=== PATIENT | male | born 1945 | race Caucasian/White ===

== ENCOUNTER 2019-12-22 17:40 | Emergency (ER) | payer MEDICARE, SELFPAY ==
--- NOTE | 2019-12-22 20:09 | PC.NURSE ---
PT CALLED AT 1930 AND 1999. PT NOT IN [facility]. [facility].
== END 2019-12-22 19:55 | disposition left against medical advice (07) ==
PROVIDERS: Emergency Provider Internal Medicine; PCP Internal Medicine
DX: H57.13 Ocular pain, bilateral (principal)
CPT/HCPCS: 99281

== ENCOUNTER 2020-01-09 12:13 | Outpatient (REF) | payer MEDICARE, SELFPAY | END 2020-01-09 12:14 | disposition home or self-care (01) | LOC: HO.XRAY 12:13 | PROVIDERS: PCP Internal Medicine; Visit Provider Internal Medicine | DX: M25.559 Pain in unspecified hip (principal) | CPT/HCPCS: 73502 ==

== ENCOUNTER 2020-01-30 07:42 | Outpatient (REF) | payer MEDICARE, SELFPAY ==
--- NOTE | 2020-01-30 08:03 | ECG_ITS ---
Test Reason : PREOP Blood Pressure : / mmHG Vent. Rate : 077 BPM Atrial Rate : 077 BPM P-R Int : 160 ms QRS Dur : 088 ms QT Int : 392 ms P-R-T Axes : 053 027 050 degrees QTc Int : 443 ms Normal sinus rhythm with sinus arrhythmia Normal ECG No previous ECGs available Referred By: Raji Amanda Electronically Signed By:ELISA VIZCARRA MD
[2020-01-30 08:15] LABS: MANUAL DIFF FLAG NO
[2020-01-30 08:16] LABS: Basophils Absolute Auto 0.1 X10*3/uL (0.0-0.2); Basophils Percent Auto 0.9 % (0-2); Eosinophils Absolute Auto 0.2 X10*3/uL (0.0-0.4); Hematocrit 46.3 % (42-52); Hemoglobin 14.9 g/dl (14.0-18.0); Imm Gran Abs Auto 0.01 X10*3/uL (0.00-0.03); Imm Gran Pct Auto 0.2 % (0.0-0.4); Lymphocytes Absolute Auto 1.8 X10*3/uL (1.2-4.9); Mean Corpuscular HGB Conc 32.2 g/dl (31.0-36.0); Mean Corpuscular Hemoglobin 27.7 pg (27.0-33.0); Mean Corpuscular Volume 86.1 fL (80-98); Mean Platelet Volume 10.4 fL (9.4-12.4); Monocytes Absolute Auto 0.7 X10*3/uL (0.1-1.2); Monocytes Percent Auto 12.3 % (2-11); Neutrophils Absolute Auto 2.7 X10*3/uL (2.0-8.3); Neutrophils Percent Auto 49.6 % (45-73); Platelet Count 180 X10*3/uL (160-400); Red Blood Count 5.38 X10*6/uL (4.60-5.80); Red Cell Distribution Width 13.2 % (11.0-16.0); White Blood Count 5.5 X10*3/uL (4.8-10.8)
[2020-01-30 08:39] LABS: Anion Gap 13 (12-20); Blood Urea Nitrogen 18 mg/dL (9-16); Carbon Dioxide 26 mmol/L (22-29); Chloride 105 mmol/L (96-108); Estimated Glomerular Filt Rate > 60; Glucose Random 92 mg/dL (60-115); Potassium 4.5 mmol/l (3.3-5.1); Sodium 139 mmol/L (135-145)
== END 2020-01-30 07:43 | disposition home or self-care (01) ==
LOC: HO.LAB 07:42
PROVIDERS: PCP Internal Medicine; Visit Provider Internal Medicine
DX: Z00.00 Encounter for general adult medical examination without abnormal findings (principal); R51.9 Headache, unspecified
CPT/HCPCS: 36415; 80048; 85025; 93005

== ENCOUNTER → 2020-03-02 09:55 | Outpatient (BNVA) | payer MEDICARE, SELFPAY | PROVIDERS: PCP Internal Medicine; Visit Provider Psychiatry & Neurology Neurology | DX: Z13.89 Encounter for screening for other disorder (principal) | CPT/HCPCS: Q3014 ==

== ENCOUNTER → 2020-04-20 08:41 | Outpatient (BNVA) | payer MEDICARE, SELFPAY | PROVIDERS: PCP Internal Medicine; Visit Provider Psychiatry & Neurology Neurology | DX: Z76.89 Persons encountering health services in other specified circumstances (principal) | CPT/HCPCS: Q3014 ==

== ENCOUNTER → 2020-05-11 09:28 | Outpatient (BNVA) | payer MEDICARE, MEDICAID, SELFPAY | PROVIDERS: PCP Internal Medicine; Visit Provider Psychiatry & Neurology Neurology | DX: G47.33 Obstructive sleep apnea (adult) (pediatric) (principal); G47.31 Primary central sleep apnea; G47.61 Periodic limb movement disorder | CPT/HCPCS: 99212 ==

== ENCOUNTER → 2020-05-30 20:19 | Outpatient (REF) | payer MEDICARE, SELFPAY | LOC: HO.SL 20:19 | PROVIDERS: PCP Internal Medicine; Visit Provider Psychiatry & Neurology Neurology | DX: Z13.89 Encounter for screening for other disorder (principal) ==

== ENCOUNTER → 2020-06-01 09:18 | Outpatient (BNVA) | payer MEDICARE, SELFPAY | PROVIDERS: PCP Internal Medicine; Visit Provider Psychiatry & Neurology Neurology | DX: G47.61 Periodic limb movement disorder (principal); M25.559 Pain in unspecified hip; G47.33 Obstructive sleep apnea (adult) (pediatric); F41.9 Anxiety disorder, unspecified; Z99.89 Dependence on other enabling machines and devices | CPT/HCPCS: Q3014 ==

== ENCOUNTER → 2020-06-07 11:59 | Outpatient (BNVA) | payer MEDICARE, MEDICAID, SELFPAY | PROVIDERS: PCP Internal Medicine; Visit Provider Orthopaedic Surgery | DX: M16.12 Unilateral primary osteoarthritis, left hip (principal) | CPT/HCPCS: 99202 ==

== ENCOUNTER 2020-07-20 06:14 | Outpatient (REF) | payer MEDICARE, OTHER, SELFPAY ==
--- NOTE | ~2020-07-20 | FL_ITS ---
EXAMINATION: XR FLUOROSCOPY WITH IMAGES CLINICAL INFORMATION: Primary osteoarthritis. COMPARISON: None TECHNIQUE: Fluoroscopy performed by Joselyn Montes De Oca NP. Fluoroscopy time: 0.6 minutes DAP: 5.04 Gycm2 Images: 1 FINDINGS: AP view of the left hip reveals needle position superolateral to the femoral head with contrast opacifying the joint space. There are subchondral cystic changes and flattening of the superolateral femoral head consistent with osteoarthritic changes. No acute fracture seen. FL/FL guidance in treatment room IMPRESSION: Fluoroscopy was provided for Joselyn Montes De Oca NP for left hip injection.
== END 2020-07-20 06:15 | disposition home or self-care (01) ==
LOC: HO.RADIR 06:14
PROVIDERS: Visit Provider Anesthesiology
DX: M16.12 Unilateral primary osteoarthritis, left hip (principal)
CPT/HCPCS: 20610; J3300; Q9967

== ENCOUNTER → 2020-08-03 08:33 | Outpatient (BNVA) | payer MEDICARE, SELFPAY | PROVIDERS: PCP Internal Medicine; Visit Provider Psychiatry & Neurology Neurology | DX: Z13.89 Encounter for screening for other disorder (principal) | CPT/HCPCS: Q3014 ==

== ENCOUNTER → 2020-08-23 13:37 | Outpatient (BNVA) | payer MEDICARE, MEDICAID, SELFPAY | PROVIDERS: PCP Internal Medicine; Visit Provider Anesthesiology | DX: M16.12 Unilateral primary osteoarthritis, left hip (principal) | CPT/HCPCS: 99202 ==

== ENCOUNTER → 2020-09-07 12:28 | Outpatient (REF) | payer MEDICARE, MEDICAID, SELFPAY | LOC: HO.SL 12:28 | PROVIDERS: PCP Internal Medicine; Visit Provider Psychiatry & Neurology Neurology | DX: G47.33 Obstructive sleep apnea (adult) (pediatric) (principal); Z99.89 Dependence on other enabling machines and devices | CPT/HCPCS: 99211 ==

== ENCOUNTER → 2020-11-16 15:05 | Outpatient (BNVA) | payer MEDICARE, MEDICAID, SELFPAY | PROVIDERS: PCP Internal Medicine; Visit Provider Urology | DX: N40.1 Benign prostatic hyperplasia with lower urinary tract symptoms (principal); R35.1 Nocturia; N52.9 Male erectile dysfunction, unspecified | CPT/HCPCS: 99202 ==

== ENCOUNTER 2020-11-26 09:15 | Outpatient (REF) | payer MEDICARE, MEDICAID, SELFPAY ==
--- NOTE | ~2020-11-26 | XR_ITS ---
EXAMINATION: XR SHOULDER, RIGHT CLINICAL INFORMATION: Pain. COMPARISON: None. TECHNIQUE: AP internal rotation, AP external rotation, and axillary views of the right shoulder. FINDINGS: Small acromioclavicular and glenohumeral marginal osteophytes. No osseous erosion. No fracture or dislocation. Lateral subacromial spurring. XR/XR shoulder RT min 2V IMPRESSION: Mild acromioclavicular and glenohumeral osteoarthritis. Lateral subacromial spurring.
== END 2020-11-26 09:16 | disposition home or self-care (01) ==
LOC: HO.HOSX 09:15
PROVIDERS: Visit Provider Orthopaedic Surgery
DX: M25.511 Pain in right shoulder (principal); Z96.642 Presence of left artificial hip joint
CPT/HCPCS: 73030; 99212

== ENCOUNTER → 2020-11-29 09:45 | Outpatient (BNVA) | payer MEDICARE, SELFPAY | PROVIDERS: PCP Internal Medicine; Visit Provider Orthopaedic Surgery | DX: Z01.812 Encounter for preprocedural laboratory examination (principal); Z01.810 Encounter for preprocedural cardiovascular examination ==

== ENCOUNTER 2020-11-29 13:03 | Outpatient (REF) | payer MEDICARE, MEDICAID, SELFPAY ==
[2020-11-29 13:17] LABS: MANUAL DIFF FLAG NO
[2020-11-29 13:30] LABS: Basophils Percent Auto 0.3 % (0-2); Eosinophils Percent Auto 0.9 % (0-4); Hematocrit 39.1 % (42-52); Hemoglobin 13.3 g/dl (14.0-18.0); Imm Gran Abs Auto 0.01 X10*3/uL (0.00-0.03); Imm Gran Pct Auto 0.3 % (0.0-0.4); Lymphocytes Absolute Auto 1.4 X10*3/uL (1.2-4.9); Lymphocytes Percent Auto 40.7 % (20-40); Mean Corpuscular Hemoglobin 32.7 pg (27.0-33.0); Mean Corpuscular Volume 96.1 fL (80-98); Mean Platelet Volume 11.3 fL (9.4-12.4); Monocytes Absolute Auto 0.7 X10*3/uL (0.1-1.2); Monocytes Percent Auto 18.5 % (2-11); Neutrophils Absolute Auto 1.4 X10*3/uL (2.0-8.3); Neutrophils Percent Auto 39.3 % (45-73); Platelet Count 92 X10*3/uL (160-400); Red Blood Count 4.07 X10*6/uL (4.60-5.80); Red Cell Distribution Width 13.7 % (11.0-16.0); White Blood Count 3.5 X10*3/uL (4.8-10.8)
[2020-11-29 13:58] LABS: Anion Gap 9 (12-20); Blood Urea Nitrogen 16 mg/dL (9-16); Calcium 8.9 mg/dL (8.4-10.2); Carbon Dioxide 28 mmol/L (22-29); Chloride 109 mmol/L (96-108); Estimated Glomerular Filt Rate > 60; Glucose Random 93 mg/dL (60-115); Potassium 3.9 mmol/L (3.3-5.1); Sodium 142 mmol/L (135-145)
== END 2020-11-29 13:04 | disposition home or self-care (01) ==
LOC: HO.LAB 13:03
PROVIDERS: Visit Provider Orthopaedic Surgery
DX: Z01.818 Encounter for other preprocedural examination (principal); M19.90 Unspecified osteoarthritis, unspecified site
CPT/HCPCS: 36415; 80048; 85025

== ENCOUNTER 2020-12-09 | Outpatient (REF) | payer MEDICARE, SELFPAY ==
--- NOTE | 2020-11-29 12:55 | ECG_ITS ---
Test Reason : preop Blood Pressure : / mmHG Vent. Rate : 069 BPM Atrial Rate : 069 BPM P-R Int : 154 ms QRS Dur : 090 ms QT Int : 382 ms P-R-T Axes : 028 028 037 degrees QTc Int : 409 ms Sinus rhythm with marked sinus arrhythmia Otherwise normal ECG When compared with ECG of 30-JAN-2020 08:10, No significant change was found Referred By: Dennis Small Electronically Signed By:ADAM PERERA
[2020-12-09 14:01] VITALS: BP 113/58; PULSE 72; RESP 20; O2SAT 97; BMI 31.7
--- NOTE | 2020-12-09 14:18 | P.CONAN_ITS ---
HPI - Anesthesia Eval Consult details Narrative: 74yo M for Left Hip Total Replacement Low PLT count with Preop labs, Repeated at PAT. Pancytopenia noted. T/C to PCP to address. Consult to Heme. Surgery cx'd until heme w/u completed. [facility] Active Problems Active Problems: All Active Problems (Updated 12/09/20 @ 13:59 by Lillian Santos RN) Obstructive sleep apnea (Acute) Central sleep apnea (Acute) Preop exam for internal medicine (Acute) Periodic limb movement disorder (Acute) Encounter for annual wellness exam in Medicare patient (Acute) Erectile dysfunction (Acute) BPH loc w urin obs/LUTS (Acute) Nocturia more than twice per night (Acute) Shoulder pain (Acute) Obesity (Acute) Arthritis of left hip (Acute) Anxiety (Acute) Hip pain (Acute) Past Medical History Medical History (Updated 12/22/20 @ 13:43 by Raji Amanda MD) Anxiety Arthritis of left hip BPH (benign prostatic hyperplasia) COVID-19 vaccine series completed Hepatitis B Hip pain Obesity Sleep apnea Family History Family History Father No problems noted. Mother No problems noted. Daughter No problems noted. Family history of problems with anesthesia: No Surgical History Surgical History H/O colonoscopy History of appendectomy History of back surgery History of tonsillectomy History of Problems with Anesthesia: No Social History Social History Housing: House Are you a primary pediatric acute care unit nurse to a significant other at home: No Do you presently have visiting nurse or other home services: No Alcohol intake: current Alcohol intake frequency: a few times a month Alcohol type: hard liquor Patient Tobacco Use Status: Never used Tobacco e-Cigarette/Vaping Use: Never Used Second Hand Smoke Exposure: No service: No 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al status: retired 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 Meds Allergies Allergy/AdvReac Type Severity Reaction Status Date / Time No Known Allergies Allergy Verified 12/22/20 13:26 Exam Exam Date and Time: December 09, 2020 1418 Height,Weight and Vital Signs: Height 6 ft Weight 106.141 kg Last Vital Signs Pulse 72 12/09/20 14:01 Resp 20 12/09/20 14:01 BP 113/58 L 12/09/20 14:01 Pulse Ox 97 12/09/20 14:01 Pertinent Lab Results Pertinent Lab Results: Laboratory Tests 11/29/20 12/15/20 13:16 11:25 WBC 3.0 L Hgb 12.4 L Hct 36.4 L Plt Count 84 L Sodium 142 Potassium 3.9 Chloride 109 H Carbon Dioxide 28 BUN 16 Creatinine 0.78 Narrative Narrative: EKG Vent. Rate : 069 BPM ? ? Atrial Rate : 069 BPM ?? P-R Int : 154 ms? QRS Dur : 090 ms ? ? QT Int : 382 ms ? ? ? P-R-T Axes : 028 028 037 degrees ?? QTc Int : 409 ms ? Sinus rhythm with marked sinus arrhythmia Otherwise normal ECG When compared with ECG of 30-JAN-2020 08:10, No significant change was found Airway Mallampati Class: II TM Dist: >3cm Neck ROM: Full Heart: RRR Lungs: CTAB Assessment and Plan Assessment Anesthesia Assessment: Anesthesia Plan Discussed (GA and ? Nerve block) and PAT Visit Final Anesthetic Review Family History of Problems with Anesthesia: No History of Problems with Anesthesia: No
[2020-12-09 15:24] LABS: Hematocrit 37.2 % (42-52); Hemoglobin 12.4 g/dl (14.0-18.0); Mean Corpuscular HGB Conc 33.3 g/dl (31.0-36.0); PLT CLUMP 1
[2020-12-09 15:25] LABS: Mean Corpuscular Hemoglobin 31.7 pg (27.0-33.0); Mean Corpuscular Volume 95.1 fL (80-98); Mean Platelet Volume 11.3 fL (9.4-12.4); Red Blood Count 3.91 X10*6/uL (4.60-5.80); Red Cell Distribution Width 13.9 % (11.0-16.0); White Blood Count 3.6 X10*3/uL (4.8-10.8)
[2020-12-09 15:27] LABS: Platelet Count 87 X10*3/uL (160-400)
[2020-12-09 16:15] LABS: MRSA Nasal PCR NEGATIVE (Negative); SA Nasal PCR NEGATIVE (Negative)
== END 2020-12-09 00:01 | disposition home or self-care (01) ==
LOC: HO.LAB
PROVIDERS: Nurse Practitioner; Physician Assistant; PCP Internal Medicine; Visit Provider Orthopaedic Surgery
DX: Z01.810 Encounter for preprocedural cardiovascular examination (principal); M16.12 Unilateral primary osteoarthritis, left hip
CPT/HCPCS: 36415; 85027; 86850; 86900; 86901; 87640; 87641; 93005

== ENCOUNTER 2020-12-09 12:42 | Outpatient (REF) | payer MEDICARE, MEDICAID, SELFPAY ==
--- NOTE | ~2020-12-09 | XR_ITS ---
EXAMINATION: XR PELVIS CLINICAL INFORMATION: Pain COMPARISON: December 2019 TECHNIQUE: AP pelvis single view FINDINGS: Complete loss of the joint space on the left side along with subarticular radiolucencies and flattening of the femoral head suggests aggressive left hip arthritis which could be inflammatory, or infection, this has progressed since prior exam worsened. Mild degenerative changes of the right hip. Mild DJD of SI joints and symphysis pubis. XR/XR pelvis 1-2V IMPRESSION: Rapid progression of severe arthritis of the left hip raise concern for possible aggressive arthritis which could be infection or inflammatory. Clinical correlation recommended. Consider left hip aspiration if clinically indicated. Stable mild DJD right hip.
== END 2020-12-09 12:43 | disposition home or self-care (01) ==
LOC: HO.HOSX 12:42
PROVIDERS: Visit Provider Physician Assistant
DX: M16.12 Unilateral primary osteoarthritis, left hip (principal)
CPT/HCPCS: 72170; 99212

== ENCOUNTER → 2020-12-15 10:39 | Outpatient (BNV) | payer MEDICARE, MEDICAID, SELFPAY | PROVIDERS: PCP Internal Medicine; Referring Provider Internal Medicine; Visit Provider Internal Medicine | DX: D69.6 Thrombocytopenia, unspecified (principal) | CPT/HCPCS: 99203; 99213; 99214 ==

== ENCOUNTER 2020-12-29 09:28 | Outpatient (REF) | payer MEDICARE, MEDICAID, SELFPAY ==
--- NOTE | ~2020-12-29 | CT_ITS ---
EXAMINATION: CT ABDOMEN AND PELVIS WITHOUT AND WITH CONTRAST CLINICAL INFORMATION: Pancytopenia COMPARISON: None TECHNIQUE: Multidetector volumetric imaging was performed of the abdomen and pelvis before and after the IV administration of 85 mL of Omnipaque 350 intravenous contrast. Sagittal and coronal reformatted images were obtained on the technologist's workstation. This CT examination was performed using dose optimization techniques as appropriate, variously including the following: *Automated exposure control *Adjustment of mA and/or kV according to patient size (this includes techniques or standardized protocols for targeted exams where dose is matched to indication/reason for exam; i.e. extremities or head) *Use of iterative reconstruction technique DLP: 1371 mGy-cm FINDINGS: LUNG BASES: The visualized lung bases are unremarkable. LIVER, GALLBLADDER, AND BILIARY TREE: There are 2 cysts in the liver measuring 1 cm in the lateral segment the left lobe axial image 34 series 4 and measuring 1 x 1.5 cm in the posterior segment of the right lobe axial image 45 series 4. There is a third 5 mm peripheral low-attenuation lesion in the right lobe axial image 33 series 4. This is difficult to characterize due to small size. The left lobe of the liver and caudate lobe appear prominent questionable for mild cirrhotic change. There is a gallstone in the gallbladder. There is no biliary duct dilatation. PANCREAS: Unremarkable SPLEEN: The spleen is slightly enlarged measuring 14.3 cm in length. There is a 2 cm cyst in the inferior spleen. ADRENAL GLANDS: Unremarkable KIDNEYS AND URETERS: There are bilateral renal stones. There is a 1 x 1.3 cm stone in the lower pole of the right kidney. Hounsfield units measure 1400. This is 9 cm from the mid axillary line. There are smaller clustered millimeter in size stone in the lower pole of the right kidney. There were several small left renal stones, largest measuring 2 mm in the lower pole. There is mild left hydronephrosis from a 2 x 4 mm left proximal ureteral stone. BLADDER: Not optimally distended. GASTROINTESTINAL TRACT: There is diverticulosis of the colon. Small large bowel is otherwise unremarkable. The appendix is is not identified with certainty. The stomach is unremarkable. ABDOMINAL WALL: There are small umbilical and inguinal hernias containing fat. LYMPH NODES: There are small retroperitoneal lymph nodes. No enlarged lymph nodes are seen. VASCULAR: There is evidence of atherosclerotic disease. No aneurysm is seen. PELVIC VISCERA: Unremarkable OSSEOUS STRUCTURES: There is a severe arthritis of the left hip joint. There are degenerative changes of the spine. There is CT/CT abdomen pelvis wo/w con IMPRESSION: Question mild cirrhotic changes of the liver. Mild splenomegaly. Gallstone. Liver and splenic cysts. Bilateral renal stones. Mild left hydronephrosis from a 2 x 4 mm left proximal ureteral stone. Diverticulosis of the colon.
[2020-12-29] MEDS: iohexoL 350 MG/ML 100 ML INFUS..BTL IV (11:10)
== END 2020-12-29 09:29 | disposition home or self-care (01) ==
LOC: HO.CT 09:28
PROVIDERS: Visit Provider Internal Medicine
DX: D61.818 Other pancytopenia (principal); R74.8 Abnormal levels of other serum enzymes
CPT/HCPCS: 74178; Q9967

== ENCOUNTER 2020-12-31 13:53 | Outpatient (REF) | payer MEDICARE, SELFPAY ==
--- NOTE | ~2020-12-31 | US_ITS ---
EXAMINATION: US VENOUS ULTRASOUND WITH DOPPLER LOWER EXTREMITY, LEFT CLINICAL INFORMATION: Ankle swelling COMPARISON: None TECHNIQUE: Ultrasound of the deep veins is performed from the hip to the calf with compression sonography and color and pulse Doppler assessment. Spectral analysis with color-flow imaging is performed. FINDINGS: There is normal venous compression and respiratory variation and augmented flow. The visualized common femoral vein, superficial femoral vein, profunda femoral vein, popliteal vein, and the trifurcation region shows no evidence of deep venous thrombosis. There is no significant popliteal fossa cyst. If the patient's symptoms persist, followup ultrasound in 5 days 7 days might be of value to exclude proximal propagation from a non-visualized calf vein. US/US venous duplex LE LT IMPRESSION: No DVT demonstrated in the left lower extremity.
== END 2020-12-31 13:54 | disposition home or self-care (01) ==
LOC: HO.US 13:53
PROVIDERS: Visit Provider Internal Medicine
DX: D69.6 Thrombocytopenia, unspecified (principal); M25.472 Effusion, left ankle
CPT/HCPCS: 93971

== ENCOUNTER 2021-01-02 12:12 | Emergency (ER) | payer MEDICARE, SELFPAY ==
--- NOTE | ~2021-01-02 | CT_ITS ---
EXAMINATION: CT ABDOMEN AND PELVIS WITHOUT CONTRAST CLINICAL INFORMATION: Left flank pain. History of stones. COMPARISON: CT scan abdomen pelvis December 29, 2020 TECHNIQUE: Multidetector volumetric imaging was performed from the superior aspect of the liver through the pubic symphysis. Sagittal and coronal reformatted images were obtained on the technologist's workstation. This CT examination was performed using dose optimization techniques as appropriate, variously including the following: *Automated exposure control *Adjustment of mA and/or kV according to patient size (this includes techniques or standardized protocols for targeted exams where dose is matched to indication/reason for exam; i.e. extremities or head) *Use of iterative reconstruction technique DLP: 775 mGy-cm FINDINGS: LUNG BASES: The visualized lung bases are unremarkable. LIVER, GALLBLADDER, AND BILIARY TREE: Stable small hepatic cysts. No suspicious liver lesion. Density calcified gallstone layering dependently in the gallbladder measuring 1.5 cm in diameter. No edema around the gallbladder. No bile duct dilatation. The extra hepatic CBD at the jorge hepatis measures 7 mm. PANCREAS: Unremarkable. SPLEEN: Hypodense area at the lower pole of the spleen measuring 2.5 cm transverse. Density measurement 10 Hounsfield units consistent with cysts. No change since prior study of December 29, 2020. Spleen is mildly enlarged measuring 14 cm of length. ADRENAL GLANDS: Unremarkable. KIDNEYS AND URETERS: Right kidney: There is a large stone in lower pole the right kidney measuring 1.5 cm. Density measurement 1281 Hounsfield units. This stone lies 11 cm from the posterior skin line. There are couple of tinier stones at the lower pole as well. There is no hydronephrosis. There are no ureteral stones. Left kidney: There is moderate hydronephrosis of left kidney. There is an obstructing stone in the proximal left ureter just distal to the ureteropelvic junction measuring 7 x 5 mm. Coronal image 48/90. This stone has not changed in position since prior study December 29, 2020 the severity of the hydronephrosis is mildly worse since prior study. There is no additional stone in the left ureter. In the lower pole left kidney there is a nonobstructive 3 mm stone. There are couple of tiny stones in the upper pole of left kidney as well. BLADDER: Unremarkable. GASTROINTESTINAL TRACT: There are numerous diverticula of the entire colon but most numerous at the sigmoid colon. There is no diverticulitis. There is no bowel wall thickening /edema. There is no bowel obstruction. There is a moderate volume of stool in the colon. The appendix is nonvisualized . The small bowel loops are unremarkable. The stomach is normal. There is no hiatal hernia. ABDOMINAL WALL: Small bilateral fat-containing inguinal hernias. Small fat-containing umbilical hernia. LYMPH NODES: Normal. VASCULAR: Atherosclerotic vascular calcifications throughout the abdomen and the pelvis. There is no aneurysm. PELVIC VISCERA: Unremarkable. OSSEOUS STRUCTURES: Multilevel degenerative spondylosis of the spine. CT/CT abdomen pelvis wo con IMPRESSION: 1. Moderate hydronephrosis of left kidney due to an obstructing 7 x 5 mm stone in the proximal left ureter. 2. Bilateral nonobstructive renal stones. 3. Diverticulosis of the colon. No acute abnormality of the bowel. 4. Splenomegaly. Splenic cyst lower pole of the spleen. 5. Stable hepatic cysts.
--- NOTE | 2021-01-02 12:29 | ED.ABDPAIN ---
HPI - Abdominal Pain General Chief Complaint: Urogenital-Male Stated Complaint: flank pain Time Seen by Provider: 01/02/21 12:29 Source: patient Mode of arrival: ambulatory Limitations: no limitations History of Present Illness HPI narrative: left flank pain starting last night. This morning with increased pain and N/V. patient has not had a kidney stone in a few years. Feels like it is going to the groin. Patient has not had any hematuria. MD elicited complaint: flank pain Pertinent past history: kidney stones Onset (ago): day(s) Pain Consistency: intermittent Location: L flank Severity: moderate Quality: sharp Exacerbating factors: nothing Relieving factors: nothing Associated symptoms: nausea and vomiting Related Data Previous Rx's Medication Instructions Recorded tadalafil 5 mg tablet 5 mg PO DAILY PRN 90 Days #90 tab 11/16/20 tamsulosin 0.4 mg capsule 0.4 mg PO BEDTIME 90 Days #90 cap 11/16/20 naproxen 500 mg tablet (Naprosyn) 500 mg PO BID #20 tab 01/02/21 ondansetron HCl 4 mg tablet 4 mg PO Q8H PRN #10 tab 01/02/21 (Zofran) Allergies Allergy/AdvReac Type Severity Reaction Status Date / Time No Known Allergies Allergy Verified 12/31/20 13:23 Review of Systems Constitutional: Reports no additional constitutional complaints Eyes: Reports no additional eye complaints Denies dizziness Cardiovascular: Reports no additional cardiovascular complaints Respiratory: Reports as per HPI Gastrointestinal: Reports no additional gastrointestinal complaints Musculoskeletal: Reports no additional musculoskeletal complaints Skin/Breast: Denies rash Reports system reviewed and no additional complaints, except as documented, Denies dizziness and Denies Sensory deficit (Neuro) Psychiatric: Denies anxiety Physical Exam Vital Signs: Vital Signs: Last Vital Signs Temp 98 F 01/02/21 12:31 Pulse 82 01/02/21 15:40 Resp 18 01/02/21 15:40 BP 128/59 L 01/02/21 15:40 Pulse Ox 98 01/02/21 15:40 Body Mass Index 31.7 Const: General: healthy appearing Nutritional Appearance: average body habitus Orientation/consciousness: oriented to person and patient oriented x3 Limitations: no limitations HENMT: Head: Yes normal to inspection Ears: external ears normal General nose exam: Normal external nose present Mouth: Normal oral and palatal mucosa present and oropharynx normal Throat: Yes posterior oropharynx normal Eyes: General: appearance normal, both eyes and all related structures Neck: Other: supple Neck: Yes normal visual inspection Chest: Chest palpation & inspection: normal inspection of the chest Resp: Auscultation: clear to auscultation bilaterally Cardio: Jugular venous distension: no JVD Rate: regular rate Rhythm: regular rhythm Heart sounds: S1 normal heart sound present and S2 normal heart sound present GI: Inspection: Yes normal to inspection Palpation (GI): Soft to palpation, nontender and No hepatosplenomegaly present Auscultation: normal bowel sounds Back/Spine/Pelvis: Other: mild CVAT Skin: General skin exam: no rashes or lesions noted Neuro: General: oriented to person and patient oriented x3 Cranial nerves: Yes CN's II-XII intact bilaterally Motor exam (neuro): 5/5 motor strength present throughout Sensory Exam: No Sensory deficit (Neuro) Extrem: General: Yes normal to inspection Psych: Appearance: grossly normal Course Reevaluation(s) Reevaluation #1: patient with [id number] proximal left stone, UA not infected. will dc home with follow up with Dr. Soliz. Time: 16:09 [facility] - Abdominal Pain Lab Data Result diagrams: 01/02/21 12:39 01/02/21 12:39 Labs: Lab Results 01/02/21 01/02/21 01/02/21 Range/Units 12:39 12:39 15:38 WBC 4.8 (4.8-10.8) X10*3/uL RBC 4.16 L (4.60-5.80) X10*6/uL Hgb 13.5 L (14.0-18.0) g/dl Hct 40.0 L (42.0-52.0) % MCV 96.2 (80.0-98.0) fL MCH 32.5 (27.0-33.0) pg MCHC 33.8 (31.0-36.0) g/dl RDW 14.5 (11.0-16.0) % Plt Count 96 L (160-400) X10*3/uL MPV 10.8 (9.4-12.4) fL Immature Gran % (Auto) 0.2 (0.0-0.4) % Neut % (Auto) 64.7 (45-73) % Lymph % (Auto) 21.7 (20-40) % [place] % (Auto) 11.9 H (2-11) % Eos % (Auto) 1.3 (0-4) % Baso % (Auto) 0.2 (0-2) % Lymph # (Auto) 1.0 L (1.2-4.9) X10*3/uL [place] # (Auto) 0.6 (0.1-1.2) X10*3/uL Eos # (Auto) 0.1 (0.0-0.4) X10*3/uL Baso # (Auto) 0.0 (0.0-0.2) X10*3/uL Abs Immat Gran (auto) 0.01 (0.00-0.03) X10*3/uL Absolute Neuts (auto) 3.1 (2.0-8.3) x10*3/uL Absolute Nucleated RBC 0.000 (0.0-0.012) X10*3/uL Nucleated RBC % (auto) 0.0 (0.0-0.2) /100WBC Sodium 140 (135-145) mmol/L Potassium 4.2 (3.3-5.1) mmol/L Chloride 107 (96-108) mmol/L Carbon Dioxide 26 (22-29) mmol/L Anion Gap 11 L (12-20) BUN 19 H (9-16) mg/dL Creatinine 1.17 (0.5-1.4) mg/dL Estim Creat Clear Calc 67.6 Estimated GFR > 60 Random Glucose 109 (60-115) mg/dL Calcium 9.9 D (8.4-10.2) mg/dL Urine Color YELLOW Urine Appearance CLEAR Urine pH 5.5 (5.0-8.0) Ur Specific [place] >= 1.030 H (1.005-1.025) Urine Protein NEG (NEG-TRACE) MG/DL Urine Glucose (UA) NEG (NEG) MG/DL Urine Ketones NEG (NEG) MG/DL Urine Blood 3+ H (NEG) Urine Nitrite NEG (NEG) Ur Leukocyte Esterase NEG (NEG) Urine RBC 15-29 H (0) /HPF Urine WBC 1-4 (0-4) /HPF Ur Squamous Epith Cells TRACE /LPF Urine Bacteria NONE /LPF Urine Mucus 1+ /LPF Imaging Data CT scan - abdomen: Radiologist's impression: IMPRESSION: ? 1. Moderate hydronephrosis of left kidney due to an obstructing 7 x 5 mm stone in the proximal left ureter. 2. Bilateral nonobstructive renal stones. 3. Diverticulosis of the colon. No acute abnormality of the bowel. 4. Splenomegaly. Splenic cyst lower pole of the spleen. 5. Stable hepatic cysts. Discharge Plan Discharge Clinical Impression: Renal colic on left side Patient Disposition: Home, Self-Care Instructions: Renal Colic (ED) Prescriptions: New ondansetron HCl [Zofran] 4 mg tablet 4 mg PO Q8H PRN (Reason: nausea and vomiting) Qty: 10 RF: 0 naproxen [Naprosyn] 500 mg tablet 500 mg PO BID Qty: 20 RF: 0 No Action tamsulosin 0.4 mg capsule 0.4 mg PO BEDTIME 90 Days Qty: 90 RF: 1 tadalafil 5 mg tablet 5 mg PO DAILY PRN (Reason: sexual activity) 90 Days Qty: 90 RF: 0 Referrals: Siddhartha Soliz MD [Physician] - 5 days [facility] Past Medical History Medical History Anxiety Arthritis of left hip BPH (benign prostatic hyperplasia) COVID-19 vaccine series completed Hepatitis B Hip pain Obesity Sleep apnea Surgical History H/O colonoscopy History of appendectomy History of back surgery History of tonsillectomy Family History Family History Father No problems noted. Mother No problems noted. Daughter No problems noted. Social History Social History Housing: House Are you a primary home health care social worker to a significant other at home: No Do you presently have visiting nurse or other home services: No Alcohol intake: current Alcohol intake frequency: a few times a month Alcohol type: hard liquor Patient Tobacco Use Status: Never used Tobacco e-Cigarette/Vaping Use: Never Used Second Hand Smoke Exposure: No Use of substances other than those prescribed or required for medical reasons: No Advance Directives: No Advance Directives Information Provided: Yes service: No 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al status: retired 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
[2021-01-02 12:31] VITALS: BP 160/72; PULSE 99; RESP 18; TEMP 36.6; O2SAT 99; BMI 31.7
[2021-01-02] MEDS: 0.9 % Sodium Chloride 1,000 ML 250 ML IVCONT (12:41)
[2021-01-02] MEDS: Ketorolac Tromethamine 15 MG/ML VIAL 30 MG IVPUSH (12:44)
[2021-01-02 12:45] LABS: MANUAL DIFF FLAG NO
[2021-01-02 12:49] LABS: Basophils Percent Auto 0.2 % (0-2); Eosinophils Absolute Auto 0.1 X10*3/uL (0.0-0.4); Eosinophils Percent Auto 1.3 % (0-4); Hemoglobin 13.5 g/dl (14.0-18.0); Imm Gran Abs Auto 0.01 X10*3/uL (0.00-0.03); Imm Gran Pct Auto 0.2 % (0.0-0.4); Lymphocytes Percent Auto 21.7 % (20-40); Mean Corpuscular HGB Conc 33.8 g/dl (31.0-36.0); Mean Corpuscular Hemoglobin 32.5 pg (27.0-33.0); Mean Corpuscular Volume 96.2 fL (80.0-98.0); Mean Platelet Volume 10.8 fL (9.4-12.4); Monocytes Absolute Auto 0.6 X10*3/uL (0.1-1.2); Monocytes Percent Auto 11.9 % (2-11); Neutrophils Absolute Auto 3.1 x10*3/uL (2.0-8.3); Neutrophils Percent Auto 64.7 % (45-73); Red Blood Count 4.16 X10*6/uL (4.60-5.80); Red Cell Distribution Width 14.5 % (11.0-16.0); White Blood Count 4.8 X10*3/uL (4.8-10.8)
[2021-01-02 12:50] LABS: Platelet Count 96 X10*3/uL (160-400)
[2021-01-02 12:57] LABS: Anion Gap 11 (12-20); Blood Urea Nitrogen 19 mg/dL (9-16); Calcium 9.9 mg/dL (8.4-10.2); Carbon Dioxide 26 mmol/L (22-29); Chloride 107 mmol/L (96-108); Creatinine Clr Calc Pharmacy 67.6; Estimated Glomerular Filt Rate > 60; Glucose Random 109 mg/dL (60-115); Potassium 4.2 mmol/L (3.3-5.1); Sodium 140 mmol/L (135-145)
[2021-01-02] MEDS: Morphine Sulfate 4 MG/ML CARTRIDGE IVPUSH (13:19)
[2021-01-02 13:20] VITALS: BP 133/81; PULSE 93; RESP 18; O2SAT 97
[2021-01-02 13:43] VITALS: BP 133/81; PULSE 91; RESP 16; O2SAT 98
[2021-01-02 15:40] VITALS: BP 128/59; PULSE 82; RESP 18; O2SAT 98
--- NOTE | 2021-01-02 15:45 | PC.NURSE ---
pt alert and oriented, vss. pt reports 3/10 Right mid back pain. pt denies headache/dizziness/sob. no nausea. no other complaints reported.
[2021-01-02 15:49] LABS: Appearance Urine CLEAR; Color Urine YELLOW; Glucose Urine UA NEG (NEG); Leukocyte Esterase Urine NEG (NEG); Nitrite Urine NEG (NEG); PH 5.5 (5.0-8.0); Specific Gravity - Urine >= 1.030 (1.005-1.025); UACC Culture Trigger NO; Urine Blood 3+ (NEG); Urine Ketones NEG (NEG); Urine Protein NEG (NEG-TRACE)
[2021-01-02 15:59] LABS: Mucus Urine 1+ /LPF; Squamous Epithelial Cell Urine TRACE /LPF
--- NOTE | 2021-01-02 16:31 | PC.NURSE ---
pt medically cleared for discharge. discharge summary given and explained to pt. pt reported 3/10 back pain. pt denies sob/headache/dizziness. no other complaints. alert and oriented, vss.
== END 2021-01-02 16:35 | disposition home or self-care (01) ==
PROVIDERS: Emergency Provider Emergency Medicine; PCP Internal Medicine
DX: N13.2 Hydronephrosis with renal and ureteral calculous obstruction (principal); Z87.442 Personal history of urinary calculi
CPT/HCPCS: 36415; 74176; 80048; 81001; 85025; 96361; 96374; 96375; 99284; J1885; J2270

== ENCOUNTER 2021-01-05 07:18 | Outpatient (REF) | payer MEDICARE, SELFPAY ==
[2021-01-05 07:52] LABS: Imm Gran Abs Auto 0.02 X10*3/uL (0.00-0.03); Imm Gran Pct Auto 0.3 % (0.0-0.4); MANUAL DIFF FLAG SCAN; Mean Corpuscular HGB Conc 34.1 g/dl (31.0-36.0); PLT CLUMP 1; Red Cell Distribution Width 14.6 % (11.0-16.0); SCAN SMEAR FLAG 1
[2021-01-05 07:54] LABS: Basophils Percent Auto 0.2 % (0-2); Eosinophils Absolute Auto 0.2 X10*3/uL (0.0-0.4); Eosinophils Percent Auto 2.5 % (0-4); Hematocrit 35.8 % (42.0-52.0); Hemoglobin 12.2 g/dl (14.0-18.0); Lymphocytes Percent Auto 16.1 % (20-40); Mean Corpuscular Hemoglobin 32.2 pg (27.0-33.0); Mean Corpuscular Volume 94.5 fL (80.0-98.0); Mean Platelet Volume 11.1 fL (9.4-12.4); Monocytes Absolute Auto 0.9 X10*3/uL (0.1-1.2); Monocytes Percent Auto 14.8 % (2-11); Neutrophils Percent Auto 66.1 % (45-73); Red Blood Count 3.79 X10*6/uL (4.60-5.80)
[2021-01-05 07:55] LABS: Platelet Count 85 X10*3/uL (160-400)
[2021-01-05 07:57] LABS: INTERNATIONAL NORM RATIO 1.3 (0.9-1.1); Prothrombin Time 14.5 SEC (9.9-13.0)
[2021-01-05 08:17] LABS: Alanine Aminotransferase 49 U/L (0-40); Alkaline Phosphatase 137 U/L (39-117); Aspartate Amino Transferase 78 U/L (5-37); Bilirubin Total 2.1 mg/dL (0.0-1.0); Iron 91 mcg/dL (45-160); Percent Iron Saturation 33 % (15-50); Total Iron Binding Capacity 279 mcg/dL (228-428); Total Protein 6.6 g/dL (6.5-8.0); Unsaturated Iron Binding 188 ug/dL
[2021-01-05 08:38] LABS: Ferritin 265 ng/mL (20-250)
[2021-01-05 09:15] LABS: HBS Num1 0.11 mIU/mL (0-7.99); ~Hepatitis B Surface Antibody NONREACTIVE (Nonreactive)
[2021-01-05 10:07] LABS: HBsAGNum2 Reactive; HBsAGNum3 Reactive; Hepatitis B Surface Antigen Retest CNFM (Negative)
[2021-01-05 10:09] LABS: Hepatitis B Surface Antigen Rep Reactive (Negative)
[2021-01-06 13:51] LABS: Anti Nuclear Antibody Screen NEGATIVE (NEGATIVE)
[2021-01-06 17:57] LABS: Alpha 1 Anti-trypsin 175 mg/dL (83-199)
[2021-01-07 13:31] LABS: Hepatitis B Viral DNA Qn - cp 8.49 Log IU/mL (NOT DETECTED)
[2021-01-08 13:26] LABS: Mitochondrial Antibodies NEGATIVE (NEGATIVE)
[2021-01-08 13:35] LABS: Hepatitis BE Antibody NON-REACTIVE (NON-REACTIVE); Hepatitis BE Antigen REACTIVE (NON-REACTIVE)
[2021-01-08 16:16] LABS: FIB-ALT 41 U/L (9-46); FIB-Alpha-2-Macroglobulin 216 mg/dL (106-279); FIB-Apolipoprotein A1 110 mg/dL (94-176); FIB-GGT 89 U/L (3-70); FIB-Haptoglobin 73 mg/dL (43-212); FIB-Total Bilirubin 1.7 mg/dL (0.2-1.2); Liver Fibrosis Score 0.86; Liver Fibrosis Stage F4; Nec Inflam Act Grade A1-A2; Nec Inflam Act Score 0.41
[2021-01-09 15:42] LABS: Smooth Muscle Antibody 20 U (<20)
[2021-01-11 13:01] LABS: Alpha Fetoprotein 7.4 ng/mL (<6.1)
== END 2021-01-05 07:19 | disposition home or self-care (01) ==
LOC: HO.LAB 07:18
PROVIDERS: PCP Internal Medicine; Visit Provider Internal Medicine
DX: B18.1 Chronic viral hepatitis B without delta-agent (principal)
CPT/HCPCS: 36415; 80076; 81596; 82103; 82105; 82728; 83540; 85025; 85610; 85730; 86038; 86039; 86255; 86256; 86706; 86707; 87340; 87350; 87517

== ENCOUNTER 2021-01-10 12:58 | Day surgery (SDC) | payer MEDICARE, MEDICAID, SELFPAY ==
[2021-01-10 13:32] VITALS: BP 140/80; PULSE 109; RESP 18; TEMP 36.5; O2SAT 96; BMI 31.7
[2021-01-10] MEDS: levoFLOXacin 500 MG TABLET PO (13:42)
[2021-01-10] MEDS: Acetaminophen 325 MG TABLET 650 MG PO (13:43)
[2021-01-10] MEDS: Lactated Ringers 1,000 ML 50 ML IVCONT (14:03)
--- NOTE | 2021-01-10 15:00 | MHC.SHP ---
Pre-Procedural Eval Section A Date of Service: 01/10/21 Section B Chief Complaint: kidney stones Details of Present Illness: Seen in emergency room for left-sided flank pain. Found to have a mid ureteric kidney stone. Scheduled for cystoscopy, left retrograde with left ureteroscopy, laser lithotripsy, stent placement. Persistent pain today consistent with stone. He understands the risks and benefits associated with the stone procedure. All questions have been answered. Relevant Family History (Specify if Yes): No Relevant Social History: None Present Medications: see Short Stay Collaborative assessment Medical History: No relevant PMH History of Previous Operations: No relevant previous surgery Allergies: Allergies Allergy/AdvReac Type Severity Reaction Status Date / Time No Known Allergies Allergy Verified 12/31/20 13:23 Review of Systems Sugical H&P ROS: Negative: Constitution, Cardiovascular, Respiratory, Neurological, Psychiatric, Hem-Onc, Allergic/Immunologic, Gastrointestinal, Genitourinary, Musculoskeletal, Integumentary, Endocrine and Eyes/Ears/Nose/Throat Exam Surgical H&P Exam: Normal: HEENT, Normal: Heart, Normal: Lungs, Normal: Extremities, Normal: Abdomen, Normal: Skin and Normal: Neurological Plan Diagnosis/Plan: Unchanged (Cystoscopy, left retrograde, left rigid ureteroscopy, laser lithotripsy, stent placement) I have reviewed the history and physical and performed a pertinent physical examination on my patient. No changes have occurred unless specified.
--- NOTE | 2021-01-10 15:21 | P.CONAN_ITS ---
HPI - Anesthesia Eval Consult details Narrative: 75 yo male patient for Cystoscopy, ureteroscopy,retro, laser, pos sible stent Left ureter PMFSH Active Problems Active Problems: All Active Problems (Updated 01/03/21 @ 00:02 by Kraig Arredondo) Hepatitis B (Acute) Thrombocytopenia (Acute). Plt 85 01/05/21 Obstructive sleep apnea (Acute) Central sleep apnea (Acute) Preop exam for internal medicine (Acute) Periodic limb movement disorder (Acute) Encounter for annual wellness exam in Medicare patient (Acute) Erectile dysfunction (Acute) BPH loc w urin obs/LUTS (Acute) Nocturia more than twice per night (Acute) Shoulder pain (Acute) Obesity (Acute) Arthritis of left hip (Acute) Anxiety (Acute) Hip pain (Acute). Awaiting surgery Anemia Hct 35.8 01/05/21 Past Medical History Medical History Anxiety Arthritis of left hip BPH (benign prostatic hyperplasia) COVID-19 vaccine series completed Hepatitis B Hip pain Obesity Sleep apnea Family History Family History Father No problems noted. Mother No problems noted. Daughter No problems noted. Family history of problems with anesthesia: No Surgical History Surgical History H/O colonoscopy History of appendectomy History of back surgery History of tonsillectomy History of Problems with Anesthesia: No Social History Social History Housing: House Are you a primary career and guidance counselor to a significant other at home: No Do you presently have visiting nurse or other home services: No Alcohol intake: current Alcohol intake frequency: a few times a month Alcohol type: hard liquor Patient Tobacco Use Status: Never used Tobacco e-Cigarette/Vaping Use: Never Used Second Hand Smoke Exposure: No Use of substances other than those prescribed or required for medical reasons: No Advance Directives: No Advance Directives Information Provided: Yes service: No 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al status: retired 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 Meds Allergies Allergy/AdvReac Type Severity Reaction Status Date / Time No Known Allergies Allergy Verified 12/31/20 13:23 Active Medications: Current Medications Lactated Ringer's (Lr) 1,000 mls @ 50 mls/hr IVCONT .Q20H SRIDEVI Last Admin: 01/10/21 14:03 Dose: 50 mls/hr Documented by: Exam Exam Date and Time: January 10, 2021 1521 Height,Weight and Vital Signs: Height 6 ft Weight 106.141 kg Last Vital Signs Temp 97.7 F 01/10/21 13:32 Pulse 109 H 01/10/21 13:32 Resp 18 01/10/21 13:32 BP 140/80 H 01/10/21 13:32 Pulse Ox 96 01/10/21 13:32 Pertinent Lab Results Pertinent Lab Results: Labs reviewed Airway Mallampati Class: II TM Dist: >3cm Neck ROM: Full Loose/Missing/Broken Teeth: No Heart: RRR + extra beats Lungs: CTAB Assessment and Plan Assessment Anesthesia Assessment: Anesthesia Plan Discussed and Chart Reviewed Final Anesthetic Review Family History of Problems with Anesthesia: No History of Problems with Anesthesia: No NPO: Yes ASA Class: III Final Preanesthetic Review: No Changes in Pt Med Stat, Meds/Allgs Chart Reviewed, Consent Obtained/Reviewed and Anes Risks/Benef Reviewed Patient Risk: Intermediate Procedure Risk: Low Assessment/Block/Sedation in SS: Assess/Block/Sedation-SS Anesthetic Plan Anesthetic Plan: GA Disposition: Standard PACU
--- NOTE | 2021-01-10 16:56 | W.PM.OPN ---
Operative Note Operative Note Date of Service: 01/10/21 Narrative: PreOperative Diagnosis: Left proximal ureteric stone Post Operative Diagnosis: Left proximal ureteric stone Procedure: - cystoscopy, left retrograde - left dilatation of ureteric orifice under fluoroscopy - left rigid ureteroscopy, laser lithotripsy, stone basketing - left stent placement Surgeon: Dr Siddhartha Soliz Anesthesia: General Indications for procedure: Seen in emergency room last week with left-sided flank pain. On imaging found to have 6 mm proximal left ureteric stone with hydronephrosis. Recommend intervention with ureteroscopy, laser lithotripsy, stent placement. He is aware the risks and benefits. Is typically seen for BPH. Procedure: After informed consent was verified patient was brought to the operating placed in supine position. Anesthesia was administered per protocol. Patient was placed in modified dorsal lithotomy position and prepped and draped in a sterile fashion. Safety pause time-out and side of surgery confirmed. Antibiotics confirmed. Patient was placed in modified dorsal lithotomy position and prepped and draped in sterile fashion. Safety pause time-out was performed. Twenty-two Estonian cystoscope inserted per urethra. Bladder examined its entirety in emptied. Left ureteric orifice seen cannulated and retrograde examination performed. Filling defects seen in proximal portion of left ureter. Sensor guidewire was placed in able to be navigated past stone up to the renal pelvis. Left ureteric orifice dilated under fluoroscopy with Dickson dilator. Rigid ureteroscopy performed with scope advanced alongside wire. Stone was encountered in the proximal ureter. Using a 360 micron holmium laser fiber the stone was broken into small pieces. Using a flat wire basket the pieces removed and sent for analysis. Multiple passes were made. Once the ureter been cleared from debris decision was made to place stent. A 6 Estonian by 26 cm stent was used as he is 6 ft tall. The wire was backloaded through the cystoscope and the cystoscope advanced. The stent was then loaded through the cystoscope over the wire with good coil seen in the left renal pelvis. Good coil seen in the bladder The bladder was emptied. The patient tolerated the procedure well. Was transferred in stable condition to the recovery area. Stone analysis will be performed. Pathology: Stone Drains: 6 Estonian by 26 cm double-J stent
[2021-01-10 17:08] VITALS: BP 116/63; PULSE 83; RESP 16; TEMP 36.6; O2SAT 94
[2021-01-10 17:13] VITALS: BP 110/52; PULSE 88; RESP 18
[2021-01-10 17:17] VITALS: BP 126/61; PULSE 74; RESP 18; O2SAT 96
[2021-01-10 17:21] VITALS: BP 131/68; PULSE 73; RESP 18; O2SAT 93
[2021-01-10 17:34] VITALS: BP 128/64; PULSE 76; RESP 18; TEMP 36.6; O2SAT 95
[2021-01-14 00:46] LABS: Stone Source LEFT KIDNEY STONE
== END 2021-01-10 18:05 | disposition home or self-care (01) ==
PROVIDERS: PCP Internal Medicine; Visit Provider Urology
PROC: (CPT 52356; principal; 2021-01-10 14:50)
DX: N20.1 Calculus of ureter (principal); N40.1 Benign prostatic hyperplasia with lower urinary tract symptoms; R35.1 Nocturia; N52.01 Erectile dysfunction due to arterial insufficiency; Z66 Do not resuscitate
CPT/HCPCS: 52356; 52352; 82365; 88300; C1769; C2617; J1100; J2405; J3010; Q9967

== ENCOUNTER → 2021-01-19 13:42 | Outpatient (BNVA) | payer MEDICARE, SELFPAY | PROVIDERS: PCP Internal Medicine; Visit Provider Urology | DX: N40.1 Benign prostatic hyperplasia with lower urinary tract symptoms (principal); N20.0 Calculus of kidney | CPT/HCPCS: 52310; 99212 ==

== ENCOUNTER 2021-01-24 09:44 | Outpatient (REF) | payer MEDICARE, SELFPAY ==
--- NOTE | ~2021-01-24 | US_ITS ---
EXAMINATION: US COMPLETE ABDOMEN WITH LIVER ELASTOGRAPHY CLINICAL INFORMATION: Hepatitis B. COMPARISON: None. TECHNIQUE: Real-time imaging of the abdominal viscera. Noninvasive ultrasound liver fibrosis assessment is performed using Naif ElastPQ point quantification shear wave elastography (pSWE) with a C5-2 MHz transducer. Multiple elastography samples are obtained. FINDINGS: ULTRASOUND ABDOMEN: PANCREAS: Normal. The visualized pancreatic head and body are normal in appearance. The remainder of the pancreas is obscured from visualization by the overlying bowel gas. ABDOMINAL AORTA: The proximal, middle, and distal aortic segments are normal in caliber. INFERIOR VENA CAVA: Visualized portions are normal. LIVER: The liver demonstrates normal size, contour and increased echogenicity. There is an anechoic lesion in the left lobe of liver measuring 1.7 x 1.5 x 1.9 cm and right hepatic lobe measuring 1.7 x 1.2 x 1.4 cm with septation. No intrahepatic biliary duct dilatation. The right lobe measures 16.0 cm in length. The left lobe measures 12.7 cm in length. Portal flow is hepatopedal. Shear wave liver elastography median stiffness is 1.81 m/s (reference: normal median stiffness is 1.3 m/s or less). IQR/median stiffness to assess sampling precision is 0.36 (reference: good quality data set is IQR/median stiffness of 0.15 or less). GALLBLADDER: The gallbladder wall thickness is 0.36 cm. The gallbladder is physiologically distended with echogenic shadowing mobile stones. No pericholecystic fluid collection or tenderness. COMMON BILE DUCT: Normal in caliber measuring 0.6 cm in diameter. RIGHT KIDNEY: There are echogenic stones in the lower pole measuring 0.4 x 0.4 cm and 0.4 x 0.3 cm. There is mild pelvic fullness. No hydronephrosis. No renal calculi or focal parenchymal lesions. The kidney measures 10.2 cm in maximum dimension. LEFT KIDNEY: There is mild pelvic fullness but no hydronephrosis. No renal calculi or focal parenchymal lesions. The kidney measures 10.2 cm in maximum dimension. SPLEEN: There is a complex irregular-shaped hypoechoic area measuring 3.4 x 3.1 x 3.0 cm along the posterior segment of the spleen consistent with cysts. It was visualized on the previous CT abdomen exam 01/02/2021. The spleen measures 13.2 cm in maximum dimension. FREE FLUID: None. ABDOMEN DOPPLER EXAM: There is normal hepatopedal flow seen in the left, right and main portal vein and extrahepatic portal veins. Normal antegrade flow seen throughout towards the liver in the main hepatic, right and left hepatic arteries. The hepatic artery flow measures 67.4 cm. The hepatic veins are patent with flow cephalad. The IVC flow is normal as well. The splenic vein is patent. US/US abdomen comp w elastography IMPRESSION: 1. Doppler exam of the abdomen is normal. The peak systolic velocity of the main hepatic artery measures 67.4 cm. 2. There are echogenic stones in lower pole right kidney without caliectasis or hydronephrosis. There is mild pelvic fullness of the left kidney. Left kidney lower pole and left proximal ureteral stone seen on recent CT abdomen exam 01/02/2021 is not visualized on the present exam. 3. Simple left hepatic cyst and a complex cyst with septation right hepatic lobe. 4. Cholelithiasis without wall thickening. 5. Liver elastography: Median liver stiffness 1.81 m/s consistent with cACLD suggestive. REFERENCE: Society of Radiologists in Ultrasound Liver Stiffness Thresholds (2020): LIVER STIFFNESS THRESHOLDS: *Liver Stiffness equal or less than 1.3 m/s: High probability of being normal. *Liver Stiffness less than 1.7 m/s: In the absence of other known clinical signs, rules out compensated advanced chronic liver disease. *Liver Stiffness 1.7-2.1 m/s: Suggestive of compensated advanced chronic liver disease but need further test for confirmation. *Liver Stiffness over 2.1 m/s: Rules in compensated advanced chronic liver disease. *Liver Stiffness over 2.4 m/s: Suggestive of clinically significant portal hypertension. QUALITY OF DATA SET: *IQR/Median value equal or less than 0.15 implies a quality data set. *IQR/Median value over 0.15 implies a poor quality data set. SIGNIFICANT CHANGE FROM PRIOR EXAM: Significant change if liver stiffness measurement is 10% or greater from prior exam. OTHER CONSIDERATIONS: The stage of liver fibrosis may be overestimated in the setting of acute hepatitis, liver inflammation, elevated liver function tests, hepatic vascular congestion, obstructive cholestasis, non-fasting state, and infiltrative diseases such as amyloidosis and lymphoma. In some patients with NAFLD, the liver stiffness thresholds for compensated advanced chronic liver disease may be lower. In causes other than viral hepatitis and NAFLD, liver stiffness thresholds are not well established.
== END 2021-01-24 09:45 | disposition home or self-care (01) ==
LOC: HO.US 09:44
PROVIDERS: PCP Internal Medicine; Visit Provider Internal Medicine
DX: B18.1 Chronic viral hepatitis B without delta-agent (principal); K76.89 Other specified diseases of liver; K80.20 Calculus of gallbladder without cholecystitis without obstruction; N20.0 Calculus of kidney
CPT/HCPCS: 76705; 76981; 93975

== ENCOUNTER 2021-01-31 09:30 | Outpatient (REF) | payer MEDICARE, SELFPAY ==
[2021-01-31 09:51] LABS: MANUAL DIFF FLAG NO
[2021-01-31 10:30] LABS: Basophils Percent Auto 0.6 % (0-2); Eosinophils Absolute Auto 0.2 X10*3/uL (0.0-0.4); Eosinophils Percent Auto 4.5 % (0-4); Hematocrit 35.3 % (42.0-52.0); Hemoglobin 11.7 g/dl (14.0-18.0); Lymphocytes Percent Auto 29.9 % (20-40); Mean Corpuscular HGB Conc 33.1 g/dl (31.0-36.0); Mean Corpuscular Hemoglobin 31.8 pg (27.0-33.0); Mean Corpuscular Volume 95.9 fL (80.0-98.0); Mean Platelet Volume 11.4 fL (9.4-12.4); Monocytes Absolute Auto 0.5 X10*3/uL (0.1-1.2); Monocytes Percent Auto 14.3 % (2-11); Neutrophils Absolute Auto 1.7 x10*3/uL (2.0-8.3); Neutrophils Percent Auto 50.7 % (45-73); Platelet Count 99 X10*3/uL (160-400); Red Blood Count 3.68 X10*6/uL (4.60-5.80); Red Cell Distribution Width 14.4 % (11.0-16.0); White Blood Count 3.4 X10*3/uL (4.8-10.8)
[2021-01-31 10:51] LABS: INTERNATIONAL NORM RATIO 1.2 (0.9-1.1)
[2021-01-31 10:54] LABS: Alanine Aminotransferase 58 U/L (0-40); Albumin Level 3.2 g/dL (3.5-5.0); Alkaline Phosphatase 154 U/L (39-117); Anion Gap 9 (12-20); Aspartate Amino Transferase 103 U/L (5-37); Bilirubin Direct 0.8 mg/dL (0.0-0.5); Bilirubin Total 1.9 mg/dL (0.0-1.0); Blood Urea Nitrogen 15 mg/dL (9-16); Calcium 9.3 mg/dL (8.4-10.2); Carbon Dioxide 27 mmol/L (22-29); Chloride 108 mmol/L (96-108); Estimated Glomerular Filt Rate > 60; Glucose Random 121 mg/dL (60-115); Potassium 3.8 mmol/L (3.3-5.1); Sodium 140 mmol/L (135-145); Total Protein 6.8 g/dL (6.5-8.0)
== END 2021-01-31 09:31 | disposition home or self-care (01) ==
LOC: HO.LAB 09:30
PROVIDERS: PCP Internal Medicine; Visit Provider Internal Medicine
DX: B18.1 Chronic viral hepatitis B without delta-agent (principal)
CPT/HCPCS: 36415; 80048; 80076; 85025; 85610; 86707; 87350; 87517

== ENCOUNTER 2021-02-07 08:39 | Outpatient (REF) | payer MEDICARE, SELFPAY ==
[2021-02-07 09:00] LABS: MANUAL DIFF FLAG NO
[2021-02-07 09:04] LABS: Basophils Percent Auto 0.7 % (0-2); Eosinophils Absolute Auto 0.3 X10*3/uL (0.0-0.4); Eosinophils Percent Auto 6.7 % (0-4); Hematocrit 35.2 % (42.0-52.0); Imm Gran Abs Auto 0.01 X10*3/uL (0.00-0.03); Imm Gran Pct Auto 0.2 % (0.0-0.4); Lymphocytes Percent Auto 24.3 % (20-40); Mean Corpuscular HGB Conc 34.1 g/dl (31.0-36.0); Mean Corpuscular Hemoglobin 32.3 pg (27.0-33.0); Mean Corpuscular Volume 94.9 fL (80.0-98.0); Mean Platelet Volume 10.6 fL (9.4-12.4); Monocytes Absolute Auto 0.5 X10*3/uL (0.1-1.2); Monocytes Percent Auto 10.8 % (2-11); Neutrophils Absolute Auto 2.4 x10*3/uL (2.0-8.3); Neutrophils Percent Auto 57.3 % (45-73); Platelet Count 104 X10*3/uL (160-400); Red Blood Count 3.71 X10*6/uL (4.60-5.80); Red Cell Distribution Width 14.6 % (11.0-16.0); White Blood Count 4.2 X10*3/uL (4.8-10.8)
[2021-02-07 09:09] LABS: INTERNATIONAL NORM RATIO 1.2 (0.9-1.1); Prothrombin Time 14.1 SEC (9.9-13.0)
[2021-02-07 09:55] LABS: Alanine Aminotransferase 66 U/L (0-40); Albumin Level 3.2 g/dL (3.5-5.0); Alkaline Phosphatase 192 U/L (39-117); Aspartate Amino Transferase 113 U/L (5-37); Bilirubin Direct 0.4 mg/dL (0.0-0.5); Bilirubin Total 0.9 mg/dL (0.0-1.0); Total Protein 6.7 g/dL (6.5-8.0)
[2021-02-07 10:10] LABS: HIV AB/AG Nonreactive (Nonreactive); HIV Num 1 0.07 S/CO (0.00-0.99)
[2021-02-12 20:26] LABS: Hepatitis Delta Antibody NEGATIVE
[2021-02-15 02:06] LABS: BCP Mutations NOT DETECTED; HBV Genotype A; Polymerase Mutations DETECTED; Precore Mutations NOT DETECTED
== END 2021-02-07 08:40 | disposition home or self-care (01) ==
LOC: HO.LAB 08:39
PROVIDERS: PCP Internal Medicine; Visit Provider Internal Medicine
DX: Z11.4 Encounter for screening for human immunodeficiency virus [HIV] (principal); B18.1 Chronic viral hepatitis B without delta-agent; K74.69 Other cirrhosis of liver
CPT/HCPCS: 36415; 80076; 85025; 85610; 86692; 87389; 87912

== ENCOUNTER 2021-02-11 09:10 | Day surgery (SDC) | payer MEDICARE, SELFPAY ==
--- NOTE | 2021-02-09 13:33 | P.CONAN_ITS ---
Documented by User: Mellissa Alfaro NP 02/09/21 13:35 HPI - Anesthesia Eval Consult details Narrative: 75yo M for Upper Endoscopy s/p cysto, etc 12/2020 with GA-LMA 5 PMFSH Active Problems Active Problems: All Active Problems (Updated 02/04/21 @ 13:44 by Cecily Hopkins, RN) Obstructive sleep apnea (Acute) Central sleep apnea (Acute) Preop exam for internal medicine (Acute) Periodic limb movement disorder (Acute) Encounter for annual wellness exam in Medicare patient (Acute) Erectile dysfunction (Acute) BPH loc w urin obs/LUTS (Acute) Nocturia more than twice per night (Acute) Shoulder pain (Acute) Thrombocytopenia (Acute) Nephrolithiasis (Acute) Hepatitis B (Acute) Obesity (Acute) Arthritis of left hip (Acute) Anxiety (Acute) Hip pain (Acute) Past Medical History Medical History (Updated 02/04/21 @ 13:44 by Cecily Hopkins RN) Anxiety Arthritis of left hip BPH (benign prostatic hyperplasia) COVID-19 vaccine series completed Hepatitis B Hip pain Kidney stone Obesity Sleep apnea Family History Family History Father No problems noted. Mother No problems noted. Daughter No problems noted. Family history of problems with anesthesia: No Surgical History Surgical History (Updated 02/04/21 @ 13:44 by Cecily Hopkins RN) H/O colonoscopy History of appendectomy History of back surgery History of lithotripsy History of tonsillectomy History of Problems with Anesthesia: No Social History Social History Housing: House Are you a primary home health care provider to a significant other at home: No Do you presently have visiting nurse or other home services: No Alcohol intake: current Alcohol intake frequency: a few times a month Alcohol type: hard liquor Patient Tobacco Use Status: Never used Tobacco e-Cigarette/Vaping Use: Never Used Second Hand Smoke Exposure: No Use of substances other than those prescribed or required for medical reasons: No Are you DNR?: No Advance Directives: No Advance Directives Information Provided: No Advance Directives on File: No service: No 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al status: retired 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 Meds Allergies Allergy/AdvReac Type Severity Reaction Status Date / Time No Known Allergies Allergy Verified 01/19/21 13:55 Home Medications Medication Instructions Recorded Confirmed Last Taken Type clonazepam 1 mg tablet 1 tab PO BEDTIME PRN 02/04/21 02/04/21 Unknown History entecavir 0.5 mg tablet 1 tab PO DAILY 02/04/21 02/04/21 Unknown History Exam Exam Date and Time: February 09, 2021 1333 Pertinent Lab Results Pertinent Lab Results: Laboratory Tests 01/31/21 02/07/21 09:50 08:58 WBC 4.2 L Hgb 12.0 L Hct 35.2 L Plt Count 104 L Sodium 140 Potassium 3.8 Chloride 108 Carbon Dioxide 27 BUN 15 Creatinine 0.84 Narrative Narrative: EKG 11/2020 Vent. Rate : 069 BPM ? ? Atrial Rate : 069 BPM ?? P-R Int : 154 ms? QRS Dur : 090 ms ? ? QT Int : 382 ms ? ? ? P-R-T Axes : 028 028 037 degrees ?? QTc Int : 409 ms ? Sinus rhythm with marked sinus arrhythmia Otherwise normal ECG When compared with ECG of 30-JAN-2020 08:10, No significant change was found Assessment and Plan Assessment Anesthesia Assessment: Chart Reviewed Final Anesthetic Review Family History of Problems with Anesthesia: No History of Problems with Anesthesia: No Documented by User: Ibis Burnett MD 02/11/21 09:36 [facility] Past Medical History Medical History (Updated 02/04/21 @ 13:44 by Cecily Hopkins RN) Anxiety Arthritis of left hip BPH (benign prostatic hyperplasia) COVID-19 vaccine series completed Hepatitis B Hip pain Kidney stone Obesity Sleep apnea Family History Family History Father No problems noted. Mother No problems noted. Daughter No problems noted. Surgical History Surgical History (Updated 02/04/21 @ 13:44 by Cecily Hopkins RN) H/O colonoscopy History of appendectomy History of back surgery History of lithotripsy History of tonsillectomy Social History Social History Housing: House Are you a primary home health care provider to a significant other at home: No Do you presently have visiting nurse or other home services: No Alcohol intake: current Alcohol intake frequency: a few times a month Alcohol type: hard liquor Patient Tobacco Use Status: Never used Tobacco e-Cigarette/Vaping Use: Never Used Second Hand Smoke Exposure: No Use of substances other than those prescribed or required for medical reasons: No Are you DNR?: No Advance Directives: No Advance Directives Information Provided: No Advance Directives on File: No service: No 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al status: retired 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 Meds Allergies Allergy/AdvReac Type Severity Reaction Status Date / Time No Known Allergies Allergy Verified 01/19/21 13:55 Home Medications Medication Instructions Recorded Confirmed Last Taken Type clonazepam 1 mg tablet 1 tab PO BEDTIME PRN 02/04/21 02/04/21 Unknown History entecavir 0.5 mg tablet 1 tab PO DAILY 02/04/21 02/04/21 Unknown History Exam Airway Mallampati Class: II TM Dist: >3cm Neck ROM: Full Partial: Upper (Permanent) Heart: rrr Lungs: cta Assessment and Plan Assessment Anesthesia Assessment: Anesthesia Plan Discussed and Chart Reviewed Final Anesthetic Review NPO: Yes ASA Class: III Final Preanesthetic Review: No Changes in Pt Med Stat, Meds/Allgs Chart Reviewed and Consent Obtained/Reviewed Patient Risk: Intermediate Procedure Risk: Intermediate Anesthetic Plan Anesthetic Plan: MAC: Disposition: Standard PACU
[2021-02-10 08:55] VITALS: BMI 31.7
[2021-02-11 09:46] VITALS: BP 128/64; PULSE 70; RESP 16; TEMP 36.6; O2SAT 97
[2021-02-11] MEDS: Lactated Ringers 1,000 ML 100 ML IVCONT (09:55)
[2021-02-11 11:05] VITALS: BP 76/48; PULSE 66; RESP 11; TEMP 36.6; O2SAT 94
--- NOTE | 2021-02-11 11:08 | PM.OP ---
Brief Operative Note Date of Service: 02/11/21 Pre-op diagnosis: Cirrhosis Post-op diagnosis: other (GERD, gastritis) Procedure: EGD Surgeon: Gene Beebe Anesthesia: MAC Was an [employer] used for this Procedure?: No Estimated blood loss (mL): 0 Pathology: none sent Condition: stable Disposition: PACU
[2021-02-11 11:20] VITALS: BP 101/47; PULSE 66; RESP 16; O2SAT 94
[2021-02-11 11:35] VITALS: BP 110/55; PULSE 68; RESP 18; TEMP 36.8; O2SAT 96
--- NOTE | 2021-02-11 11:53 | OP_ITS ---
SURGEON: Gene Beebe MD INDICATIONS: The patient presents for evaluation of underlying cirrhosis in relation to chronic hepatitis B. Full consent was obtained from him for this, including risks of bleeding and perforation. PREOPERATIVE DIAGNOSIS: Cirrhosis. POSTOPERATIVE DIAGNOSIS: PROCEDURE PERFORMED: Esophagogastroduodenoscopy. ESTIMATED BLOOD LOSS: COMPLICATIONS: ANESTHESIA: Monitored anesthesia care. ASSISTANTS: SPECIMENS: POSTOPERATIVE DIAGNOSES: Cirrhosis, gastritis, gastroesophageal reflux, and mild esophagitis. DESCRIPTION OF PROCEDURE: The patient was placed in the left lateral decubitus position. The Olympus video gastroscope was passed in the posterior oropharynx and upper esophagus under direct vision. The scope was passed slowly into the distal esophagus. The gastroesophageal junction appeared at 38 cm. There was a small hiatal hernia. The scope was advanced to the pylorus and the duodenum was cannulated to the descending portion. The duodenum including the bulb was carefully inspected and it appeared normal, without any sign of mass or ulceration. The scope was withdrawn back to the stomach. The gastric antrum and body appeared normal with good peristalsis. The scope was retroflexed visualizing the proximal stomach carefully, which appeared to have some mild areas of erythema, but no evidence of varices nor any signs of portal gastropathy. There were no erosions. The scope was straightened and withdrawn back into the esophagus. The entire esophagus was carefully inspected with insufflation of air. I did not appreciate any definitive varices. There did appear to be some distal changes of esophagitis and erythema, but no ulceration, Dao's esophagus, or mass. Biopsies were not obtained due to his thrombocytopenia. The scope was withdrawn from the patient. He tolerated the procedure well and was returned to the recovery area in stable condition. IMPRESSION: 1. Mild proximal gastritis. 2. Gastroesophageal reflux with mild reflux esophagitis. 3. Small hiatal hernia. PLAN: Given the patient's thrombocytopenia and potential need for upcoming surgery in relation to hip replacement, I shall start him on omeprazole 20 mg daily. He is not having any particular upper GI symptoms. He just recently started his entecavir for the hepatitis B and he will be seen in followup in that regard. He has been advised to stay off all aspirin and NSAIDs long-term. Gene Beebe MD RMW/MODL / [id number]
== END 2021-02-11 11:55 | disposition home or self-care (01) ==
PROVIDERS: PCP Internal Medicine; Visit Provider Internal Medicine
PROC: 0DJ08ZZ Inspection of Upper Intestinal Tract, Via Natural or Artificial Opening Endoscopic (ICD-10-PCS; CPT 43235; principal; 2021-02-11 10:30)
DX: K74.69 Other cirrhosis of liver (principal); B18.1 Chronic viral hepatitis B without delta-agent; D69.6 Thrombocytopenia, unspecified; K29.60 Other gastritis without bleeding; K21.00 Gastro-esophageal reflux disease with esophagitis, without bleeding; K44.9 Diaphragmatic hernia without obstruction or gangrene; R16.1 Splenomegaly, not elsewhere classified; M16.12 Unilateral primary osteoarthritis, left hip; G47.33 Obstructive sleep apnea (adult) (pediatric); Z99.89 Dependence on other enabling machines and devices; Z79.899 Other long term (current) drug therapy; Z87.442 Personal history of urinary calculi
CPT/HCPCS: 43235; J3010

== ENCOUNTER 2021-03-11 06:28 | Outpatient (REF) | payer MEDICARE, SELFPAY ==
[2021-03-11 06:47] LABS: MANUAL DIFF FLAG NO
[2021-03-11 07:29] LABS: Basophils Percent Auto 0.4 % (0-2); Eosinophils Absolute Auto 0.2 X10*3/uL (0.0-0.4); Hematocrit 36.5 % (42.0-52.0); Hemoglobin 12.3 g/dl (14.0-18.0); Lymphocytes Absolute Auto 1.4 X10*3/uL (1.2-4.9); Mean Corpuscular HGB Conc 33.7 g/dl (31.0-36.0); Mean Corpuscular Hemoglobin 31.5 pg (27.0-33.0); Mean Corpuscular Volume 93.6 fL (80.0-98.0); Mean Platelet Volume 11.3 fL (9.4-12.4); Monocytes Absolute Auto 0.6 X10*3/uL (0.1-1.2); Monocytes Percent Auto 12.7 % (2-11); Neutrophils Absolute Auto 2.7 x10*3/uL (2.0-8.3); Neutrophils Percent Auto 54.9 % (45-73); Platelet Count 111 X10*3/uL (160-400)
[2021-03-11 07:34] LABS: INTERNATIONAL NORM RATIO 1.2 (0.9-1.1); Prothrombin Time 13.8 SEC (9.9-13.0)
[2021-03-11 08:07] LABS: Alanine Aminotransferase 60 U/L (0-40); Albumin Level 3.2 g/dL (3.5-5.0); Alkaline Phosphatase 151 U/L (39-117); Anion Gap 9 (12-20); Aspartate Amino Transferase 103 U/L (5-37); Bilirubin Direct 0.7 mg/dL (0.0-0.5); Bilirubin Total 1.6 mg/dL (0.0-1.0); Blood Urea Nitrogen 16 mg/dL (9-16); Calcium 9.2 mg/dL (8.4-10.2); Carbon Dioxide 27 mmol/L (22-29); Chloride 105 mmol/L (96-108); Estimated Glomerular Filt Rate > 60; Glucose Random 88 mg/dL (60-115); Potassium 3.9 mmol/L (3.3-5.1); Sodium 137 mmol/L (135-145)
[2021-03-11 08:38] LABS: ~Hepatitis B Surface Antibody NONREACTIVE (Nonreactive)
[2021-03-11 09:40] LABS: HBsAGNum2 Reactive; HBsAGNum3 Reactive; Hepatitis B Surface Antigen Retest CNFM (Negative)
[2021-03-11 09:44] LABS: Hepatitis B Surface Antigen Rep Reactive (Negative)
[2021-03-15 13:22] LABS: Hepatitis BE Antibody NON-REACTIVE (NON-REACTIVE); Hepatitis BE Antigen REACTIVE (NON-REACTIVE)
[2021-03-15 15:10] LABS: Hepatitis B Viral DNA Qn - cp 4.69 Log IU/mL (NOT DETECTED); Hepatitis B Viral DNA Qn-IU/mL 48900 IU/mL (NOT DETECTED)
== END 2021-03-11 06:29 | disposition home or self-care (01) ==
LOC: HO.LAB 06:28
PROVIDERS: PCP Internal Medicine; Visit Provider Internal Medicine
DX: B18.1 Chronic viral hepatitis B without delta-agent (principal)
CPT/HCPCS: 36415; 80048; 80076; 85025; 85610; 86706; 86707; 87340; 87350; 87517

== ENCOUNTER 2021-03-16 07:35 | Outpatient (REF) | payer MEDICARE, SELFPAY ==
--- NOTE | ~2021-03-16 | US_ITS ---
EXAMINATION: US RETROPERITONEAL LIMITED (RENAL ONLY) CLINICAL INFORMATION: Calculus of kidney. COMPARISON: Ultrasound abdomen complete 01/24/2021. CT abdomen and pelvis 01/02/2021. TECHNIQUE: Real-time imaging of the kidneys. FINDINGS: RIGHT KIDNEY: 10.2 x 5.9 x 6.0 cm (SAG x AP x TRV). The kidney is normal in size, contour, and echogenicity. Renal cortical thickness is normal. There are multiple stones. Largest stone measures 1.7 x 0.7 x 0.8 cm in the lower pole. No focal parenchymal lesions or hydronephrosis. LEFT KIDNEY: 11.6 x 6.4 x 5.1 cm (SAG x AP x TRV). The kidney is normal in size, contour, and echogenicity. Renal cortical thickness is normal. There are multiple stones. Largest stone measures 9 x 6 x 9 mm in the upper pole. No focal parenchymal lesions or hydronephrosis. US/US renal BI IMPRESSION: Bilateral renal stones.
== END 2021-03-16 07:36 | disposition home or self-care (01) ==
LOC: HO.US 07:35
PROVIDERS: Visit Provider Urology
DX: N20.0 Calculus of kidney (principal)
CPT/HCPCS: 76775

== ENCOUNTER → 2021-03-25 08:44 | Outpatient (BNVA) | payer MEDICARE, SELFPAY | PROVIDERS: PCP Internal Medicine; Visit Provider Urology | DX: Z13.89 Encounter for screening for other disorder (principal) | CPT/HCPCS: Q3014 ==

== ENCOUNTER 2021-05-16 06:44 | Outpatient (REF) | payer MEDICARE, SELFPAY ==
[2021-05-16 06:57] LABS: MANUAL DIFF FLAG NO
[2021-05-16 07:15] LABS: Basophils Percent Auto 0.2 % (0-2); Eosinophils Absolute Auto 0.2 X10*3/uL (0.0-0.4); Eosinophils Percent Auto 4.4 % (0-4); Hematocrit 30.7 % (42.0-52.0); Hemoglobin 10.1 g/dl (14.0-18.0); INTERNATIONAL NORM RATIO 1.5 (0.9-1.1); Imm Gran Abs Auto 0.01 X10*3/uL (0.00-0.03); Imm Gran Pct Auto 0.2 % (0.0-0.4); Lymphocytes Absolute Auto 1.3 X10*3/uL (1.2-4.9); Lymphocytes Percent Auto 22.7 % (20-40); Mean Corpuscular HGB Conc 32.9 g/dl (31.0-36.0); Mean Corpuscular Hemoglobin 31.7 pg (27.0-33.0); Mean Corpuscular Volume 96.2 fL (80.0-98.0); Mean Platelet Volume 10.2 fL (9.4-12.4); Monocytes Absolute Auto 0.6 X10*3/uL (0.1-1.2); Monocytes Percent Auto 11.4 % (2-11); Neutrophils Absolute Auto 3.4 x10*3/uL (2.0-8.3); Neutrophils Percent Auto 61.1 % (45-73); Platelet Count 142 X10*3/uL (160-400); Prothrombin Time 17.6 SEC (9.9-13.0); Red Blood Count 3.19 X10*6/uL (4.60-5.80); Red Cell Distribution Width 13.5 % (11.0-16.0); White Blood Count 5.5 X10*3/uL (4.8-10.8)
[2021-05-16 07:33] LABS: Alanine Aminotransferase 21 U/L (0-40); Albumin Level 3.1 g/dL (3.5-5.0); Alkaline Phosphatase 100 U/L (39-117); Anion Gap 9 (12-20); Aspartate Amino Transferase 39 U/L (5-37); Bilirubin Direct 0.6 mg/dL (0.0-0.5); Bilirubin Total 1.3 mg/dL (0.0-1.0); Blood Urea Nitrogen 17 mg/dL (9-16); Calcium 8.7 mg/dL (8.4-10.2); Carbon Dioxide 31 mmol/L (22-29); Chloride 96 mmol/L (96-108); Estimated Glomerular Filt Rate > 60; Glucose Random 110 mg/dL (60-115); Potassium 3.6 mmol/L (3.3-5.1); Sodium 132 mmol/L (135-145); Total Protein 6.2 g/dL (6.5-8.0)
[2021-05-18 21:36] LABS: Hepatitis B Viral DNA Qn - cp 3.65 Log IU/mL (NOT DETECTED); Hepatitis B Viral DNA Qn-IU/mL 4440 IU/mL (NOT DETECTED)
[2021-05-19 12:41] LABS: Hepatitis BE Antibody NON-REACTIVE (NON-REACTIVE); Hepatitis BE Antigen REACTIVE (NON-REACTIVE)
== END 2021-05-16 06:45 | disposition home or self-care (01) ==
LOC: HO.LAB 06:44
PROVIDERS: PCP Internal Medicine; Visit Provider Internal Medicine
DX: B18.1 Chronic viral hepatitis B without delta-agent (principal)
CPT/HCPCS: 36415; 80048; 80076; 85025; 85610; 86706; 86707; 87340; 87350; 87517

== ENCOUNTER → 2021-07-04 09:42 | Outpatient (REF) | payer MEDICARE, SELFPAY | LOC: HO.SL 09:42 | PROVIDERS: PCP Internal Medicine; Visit Provider Internal Medicine | DX: G47.33 Obstructive sleep apnea (adult) (pediatric) (principal) | CPT/HCPCS: 95806 ==

== ENCOUNTER → 2021-07-12 14:18 | Outpatient (BNVA) | payer MEDICARE, SELFPAY | PROVIDERS: PCP Internal Medicine; Visit Provider Urology | DX: N20.0 Calculus of kidney (principal) | CPT/HCPCS: Q3014 ==

== ENCOUNTER 2021-08-15 11:22 | Day surgery (SDC) | payer MEDICARE, SELFPAY ==
[2021-08-05 19:18] VITALS: BMI 31.6
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
--- NOTE | ~2021-08-15 | FL_ITS ---
EXAMINATION: XR FLUOROSCOPY WITH IMAGES CLINICAL INFORMATION: Cystoscopy. COMPARISON: CT abdomen of 01/02/2021. TECHNIQUE: Fluoroscopy performed by Dr. Siddhartha Soliz. Fluoroscopy time: 2.0 minutes DAP: 15.2 Gy-cm2 Images: 4 FINDINGS: Images demonstrate placement of a right ureteral stent. There is blunting of the lower pole calyces and an upper pole calyx. There appear to be some filling defects about the lower pole infundibulum and calyx consistent with calculi. FL/FL guidance in OR IMPRESSION: Right ureteral stent placement.
[2021-08-15] MEDS: Lactated Ringers 1,000 ML 100 ML IVCONT (13:15)
[2021-08-15 13:33] VITALS: BP 145/68; PULSE 81; RESP 18; TEMP 36.6; O2SAT 99
--- NOTE | 2021-08-15 15:50 | MHC.SHP ---
Pre-Procedural Eval Section A Date of Service: 08/15/21 The patient is an INPATIENT: No Changes since office visit: No Cold of Flu in the past 2 weeks, No New Medical Problems, No Changes in Medication and No Patient answered all questions The History & Physical has been completed within 30 days and I have reviewed it.: No Section B Chief Complaint: kidney stone Details of Present Illness: right renal stone Relevant Family History (Specify if Yes): No Relevant Social History: None Present Medications: see Short Stay Collaborative assessment Medical History: Significant History History of Previous Operations: Relevant previous surgery/procedure and date(s) Allergies: Allergies Allergy/AdvReac Type Severity Reaction Status Date / Time No Known Allergies Allergy Verified 08/08/21 14:12 Review of Systems Sugical H&P ROS: Negative: Constitution, Cardiovascular, Respiratory, Neurological, Psychiatric, Hem-Onc, Allergic/Immunologic, Gastrointestinal, Genitourinary, Musculoskeletal, Integumentary, Endocrine and Eyes/Ears/Nose/Throat Exam Surgical H&P Exam: Normal: HEENT, Normal: Heart, Normal: Lungs, Normal: Extremities, Normal: Abdomen, Normal: Skin and Normal: Neurological Plan Diagnosis/Plan: Unchanged ( cystoscopy, right retrograde, right ureteroscopy with laser lithotripsy stent placement) I have reviewed the history and physical and performed a pertinent physical examination on my patient. No changes have occurred unless specified.
[2021-08-15 17:32] VITALS: BP 144/77; PULSE 79; RESP 17; TEMP 36.1; O2SAT 99
[2021-08-15 17:37] VITALS: BP 141/75; PULSE 69; RESP 18; O2SAT 100
[2021-08-15 17:42] VITALS: BP 141/75; PULSE 84; RESP 18; O2SAT 96
[2021-08-15 17:45] VITALS: BP 146/60; PULSE 69; RESP 18; O2SAT 96
[2021-08-15] MEDS: Phenazopyridine HCL 100 MG TABLET PO (17:45)
[2021-08-15] MEDS: Acetaminophen 325 MG TABLET 650 MG PO (17:45)
[2021-08-15 18:00] VITALS: BP 154/76; PULSE 71; RESP 18; TEMP 36.1; O2SAT 96
--- NOTE | 2021-09-09 15:37 | W.PM.OPN ---
Operative Note Operative Note Date of Service: 08/15/21 Narrative: PreOperative Diagnosis: Right renal stones Post Operative Diagnosis: Right renal stones Procedure: - cystoscopy, right retrograde - right dilatation of ureteric orifice under fluoroscopy - ride ureteroscopy, laser lithotripsy, stone basketing - right stent placement Surgeon: Dr Siddhartha Soliz Anesthesia: General Indications for procedure: Right renal stones 1 cm Procedure: After informed consent was verified patient was brought to the operating placed in supine position. Anesthesia was administered per protocol. Patient was placed in modified dorsal lithotomy position and prepped and draped in a sterile fashion. Safety pause time-out and side of surgery confirmed. Antibiotics confirmed. 22 [place] cystoscope was inserted per urethra. Bladder was normal in its entirety. Both ureteric orifices were in normal position. The right ureteric orifice was cannulated and a retrograde examination was performed. Filling defects seen within right renal pelvis . A Sensor guidewire was placed up to the level of the renal pelvis under fluoroscopy. The rigid cystoscope was removed and the inner cannula of ureteric access sheath was used under fluoroscopy to dilate the ureteric orifice. The ureteric access sheath was placed and the inner cannula with access wire removed. The digital flexible ureteral scope was placed. Right flexible ureteral scope placed. Stones encountered multiple locations. Using a holmium laser stones were broken into small pieces. Basketing was performed. A 6 [place] by 26 cm double-J stent was placed into the renal pelvis and bladder under a combination of fluoroscopy and direct visualization. The bladder was emptied. The patient tolerated the procedure well and was extubated in the operating room, and transferred in stable condition to the recovery area. Pathology: Stones Drains: Double-J stent is above
== END 2021-08-15 17:45 | disposition home or self-care (01) ==
PROVIDERS: PCP Internal Medicine; Visit Provider Urology
PROC: (CPT 52356; principal; 2021-08-15 13:40)
DX: N20.0 Calculus of kidney (principal); Z87.442 Personal history of urinary calculi; N40.1 Benign prostatic hyperplasia with lower urinary tract symptoms; R39.14 Feeling of incomplete bladder emptying; R39.12 Poor urinary stream; R35.1 Nocturia; N52.9 Male erectile dysfunction, unspecified; G47.33 Obstructive sleep apnea (adult) (pediatric); Z96.642 Presence of left artificial hip joint; Z66 Do not resuscitate
CPT/HCPCS: 52356; C1758; C1769; C1894; C2617; J1956; J2250; J2405; J3010; Q9966

== ENCOUNTER → 2021-09-09 14:20 | Outpatient (BNVA) | payer MEDICARE, SELFPAY | PROVIDERS: PCP Internal Medicine; Visit Provider Urology | DX: Z48.816 Encounter for surgical aftercare following surgery on the genitourinary system (principal); N52.9 Male erectile dysfunction, unspecified; Z87.442 Personal history of urinary calculi | CPT/HCPCS: Q3014 ==

== ENCOUNTER 2021-09-19 08:14 | Outpatient (REF) | payer MEDICARE, SELFPAY ==
[2021-09-19 08:39] LABS: MANUAL DIFF FLAG NO
[2021-09-19 09:16] LABS: INTERNATIONAL NORM RATIO 1.2 (0.9-1.1); Prothrombin Time 13.4 SEC (10.0-13.1)
[2021-09-19 09:23] LABS: Basophils Percent Auto 0.6 % (0-2); Eosinophils Absolute Auto 0.2 X10*3/uL (0.0-0.4); Hematocrit 37.5 % (42.0-52.0); Hemoglobin 12.2 g/dl (14.0-18.0); Lymphocytes Absolute Auto 0.8 X10*3/uL (1.2-4.9); Lymphocytes Percent Auto 24.5 % (20-40); Mean Corpuscular HGB Conc 32.5 g/dl (31.0-36.0); Mean Corpuscular Hemoglobin 30.3 pg (27.0-33.0); Mean Corpuscular Volume 93.1 fL (80.0-98.0); Mean Platelet Volume 10.8 fL (9.4-12.4); Monocytes Absolute Auto 0.4 X10*3/uL (0.1-1.2); Monocytes Percent Auto 10.2 % (2-11); Neutrophils Absolute Auto 2.1 x10*3/uL (2.0-8.3); Neutrophils Percent Auto 59.7 % (45-73); Red Blood Count 4.03 X10*6/uL (4.60-5.80); Red Cell Distribution Width 14.8 % (11.0-16.0); White Blood Count 3.4 X10*3/uL (4.8-10.8)
[2021-09-19 09:24] LABS: Platelet Count 85 X10*3/uL (160-400)
[2021-09-19 09:53] LABS: Anion Gap 8 (12-20); Blood Urea Nitrogen 20 mg/dL (9-16); Calcium 9.1 mg/dL (8.4-10.2); Carbon Dioxide 28 mmol/L (22-29); Chloride 109 mmol/L (96-108); Estimated Glomerular Filt Rate > 60; Glucose Random 105 mg/dL (60-115); Potassium 4.4 mmol/L (3.3-5.1); Sodium 141 mmol/L (135-145)
[2021-09-19 11:43] LABS: Hepatitis B Surface Antigen Rep Reactive (Negative)
[2021-09-19 13:57] LABS: Hepatitis B Surface Antigen Rep Reactive (Negative)
[2021-09-19 18:09] LABS: Alanine Aminotransferase 39 U/L (0-40); Albumin Level 3.6 g/dL (3.5-5.0); Alkaline Phosphatase 134 U/L (39-117); Aspartate Amino Transferase 54 U/L (5-37); Bilirubin Direct 0.5 mg/dL (0.0-0.5); Bilirubin Total 1.2 mg/dL (0.0-1.0); Total Protein 6.5 g/dL (6.5-8.0)
[2021-09-20 10:55] LABS: Hepatitis BE Antibody NON-REACTIVE (NON-REACTIVE); Hepatitis BE Antigen REACTIVE (NON-REACTIVE)
[2021-09-21 11:07] LABS: Hepatitis B Viral DNA Qn - cp 3.42 Log IU/mL (NOT DETECTED); Hepatitis B Viral DNA Qn-IU/mL 2630 IU/mL (NOT DETECTED)
== END 2021-09-19 08:15 | disposition home or self-care (01) ==
LOC: HO.LAB 08:14
PROVIDERS: PCP Internal Medicine; Visit Provider Internal Medicine
DX: B18.1 Chronic viral hepatitis B without delta-agent (principal); K74.60 Unspecified cirrhosis of liver
CPT/HCPCS: 36415; 80048; 80076; 85025; 85610; 86707; 87340; 87350; 87517

== ENCOUNTER 2021-09-28 07:27 | Day surgery (SDC) | payer MEDICARE, SELFPAY ==
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
--- NOTE | ~2021-09-28 | XR_ITS ---
EXAMINATION: XR ABDOMEN KUB CLINICAL INDICATION: Preop. COMPARISON: CT abdomen and pelvis 01/02/2021 TECHNIQUE: AP view of the abdomen. FINDINGS: There is scattered stool and gas seen in the colon without distention. There is no organomegaly. There is a radiopaque calculi in the right upper quadrant likely a gallstone. A right ureteral stent is seen with its proximal in the right kidney pelvis and distal end in the bladder. There is 1.8 cm radiopaque calculi right kidney pelvis. There is a total left hip prosthesis with the prosthetic components in satisfactory alignment. No lytic or sclerotic process seen. XR/XR KUB IMPRESSION: 1. Mild constipation without obstruction. 2. Visualization of gallstone, right kidney calculi and a right internal ureteral stent.
[2021-09-28] MEDS: Acetaminophen 325 MG TABLET 650 MG PO (08:12)
[2021-09-28 08:15] VITALS: BMI 32.1
[2021-09-28 08:22] VITALS: BP 122/68; PULSE 81; RESP 16; TEMP 36.2; O2SAT 97
[2021-09-28] MEDS: Lactated Ringers 1,000 ML 100 ML IVCONT (08:31)
[2021-09-28 08:40] LABS: Hematocrit 35.9 % (42.0-52.0); Hemoglobin 12.1 g/dl (14.0-18.0); Mean Corpuscular HGB Conc 33.7 g/dl (31.0-36.0); Mean Corpuscular Hemoglobin 30.6 pg (27.0-33.0); Mean Corpuscular Volume 90.7 fL (80.0-98.0); Mean Platelet Volume 10.2 fL (9.4-12.4); Red Blood Count 3.96 X10*6/uL (4.60-5.80); Red Cell Distribution Width 14.6 % (11.0-16.0); White Blood Count 3.8 X10*3/uL (4.8-10.8)
[2021-09-28 08:44] LABS: Platelet Count 91 X10*3/uL (160-400)
--- NOTE | 2021-09-28 09:27 | MHC.SHP ---
Pre-Procedural Eval Section A Date of Service: 09/28/21 The patient is an INPATIENT: No Changes since office visit: No Cold of Flu in the past 2 weeks, No New Medical Problems, No Changes in Medication and No Patient answered all questions The History & Physical has been completed within 30 days and I have reviewed it.: Yes Section B Chief Complaint: Calculus of kidney Details of Present Illness: right ESWL with stent removal Allergies: Allergies Allergy/AdvReac Type Severity Reaction Status Date / Time No Known Allergies Allergy Verified 09/19/21 14:17 Plan I have reviewed the history and physical and performed a pertinent physical examination on my patient. No changes have occurred unless specified.
--- NOTE | 2021-09-28 10:14 | W.PM.OPN ---
Operative Note Operative Note Date of Service: 09/28/21 Narrative: PreOperative Diagnosis: right Renal stones with stent Post Operative Diagnosis: right Renal stones stent Procedure: right ESWL with stent removal Surgeon: Dr Siddhartha Soliz Anesthesia: mac/sedation Indications for procedure: The patient understands ESWL may be a staged procedure and subsequent intervention may be required based on imaging after ESWL. They also understand there is a risk of bleeding to the kidney, infection, damage to adjacent organs, and stone migration following the procedure. - Imaging right stone clauster Procedure: After informed consent was verified the patient was brought to the operating room and placed in a supine position. Anesthesia was performed per protocol. Safety pause time-out was performed. Imaging was displayed in the room and laterality confirmed. ESWL was performed. The 1st 500 shocks were performed at 60 hertz. These were performed with increasing power. Once maximum power was reached the rate was increased to 180 hertz. A total of 2500 shocks were given. Targetted imaging with ultrasound/fluoroscopy showed stone smudging suggestive of disintegration. At completion cystoscopy performed and stent grasped and removed intact The patient tolerated the procedure well and was transferred to the recovery area upon completion. Post procedure imaging will be organized. There was no evidence for flank discoloration.
[2021-09-28 10:24] VITALS: BP 102/60; PULSE 99; RESP 14; TEMP 36.3; O2SAT 97
[2021-09-28 10:29] VITALS: BP 117/63; PULSE 88; RESP 15; O2SAT 97
[2021-09-28 10:34] VITALS: BP 126/67; PULSE 82; RESP 15; O2SAT 100
[2021-09-28 10:39] VITALS: BP 114/65; PULSE 80; RESP 15; TEMP 36.3; O2SAT 96
[2021-09-28 10:54] VITALS: BP 124/60; PULSE 83; RESP 16; O2SAT 95
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
== END 2021-09-28 11:44 | disposition home or self-care (01) ==
PROVIDERS: Nurse Practitioner; PCP Internal Medicine; Visit Provider Urology
PROC: (CPT 50590; principal; 2021-09-28 09:10)
DX: N20.0 Calculus of kidney (principal); Z96.0 Presence of urogenital implants; Z87.442 Personal history of urinary calculi; N52.9 Male erectile dysfunction, unspecified; N40.1 Benign prostatic hyperplasia with lower urinary tract symptoms; R39.14 Feeling of incomplete bladder emptying; R39.12 Poor urinary stream; R35.1 Nocturia; K74.60 Unspecified cirrhosis of liver; D69.6 Thrombocytopenia, unspecified; G47.33 Obstructive sleep apnea (adult) (pediatric); B19.10 Unspecified viral hepatitis B without hepatic coma; Z79.899 Other long term (current) drug therapy; Z96.642 Presence of left artificial hip joint; Z66 Do not resuscitate
CPT/HCPCS: 50590; 52310; 36415; 74018; 85027; J1956; J2250; J2405; J3010

== ENCOUNTER 2021-11-22 08:09 | Outpatient (REF) | payer MEDICARE, MEDICAID, SELFPAY ==
--- NOTE | ~2021-11-22 | US_ITS ---
EXAMINATION: US RETROPERITONEAL LIMITED (RENAL ONLY) CLINICAL INFORMATION: Calculus of kidney. COMPARISON: X-ray abdomen KUB 09/28/2021. Renal ultrasound 03/16/2021. Ultrasound abdomen complete was elastography 01/24/2021. CT abdomen and pelvis 01/02/2021. TECHNIQUE: Real-time imaging of the kidneys. FINDINGS: RIGHT KIDNEY: 10.4 x 6.3 x 5.1 cm (SAG x AP x TRV). The kidney is normal in size, contour, and echogenicity. Renal cortical thickness is normal. No focal parenchymal lesions or hydronephrosis. At the interpolar aspect, a 4 mm nonobstructing calculus is seen, with twinkle artifact. At the lower pole, 1.0 cm and 0.6 cm nonobstructing calculi are seen, with twinkle artifact. LEFT KIDNEY: 10.4 x 5.8 x 6.0 cm (SAG x AP x TRV). The kidney is normal in size, contour, and echogenicity. Renal cortical thickness is normal. No focal parenchymal lesions or hydronephrosis. At the lower pole, a 4 mm nonobstructing calculus is seen, with twinkle artifact. US/US renal BI IMPRESSION: Nonobstructing bilateral renal calculi are seen, as detailed. No hydronephrosis is noted.
== END 2021-11-22 08:10 | disposition home or self-care (01) ==
LOC: HO.US 08:09
PROVIDERS: Visit Provider Urology
DX: N20.0 Calculus of kidney (principal)
CPT/HCPCS: 76775

== ENCOUNTER 2021-12-02 15:02 | Outpatient (AMB) | payer MEDICARE, SELFPAY ==
--- NOTE | 2021-12-02 15:02 | A.OFFVIS_ITS ---
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 He is a patient of Dr. Guadarrama. He is seen for the following urologic conditions - erectile dysfunction - lower urinary tract symptoms Telemedicine Evaluation 15 min Consultation Nautal Jackie Video attempted Stone follow-up Significant decrease in stone burden Nephrolithiasis Stone former Intervention - 08/17 right-sided ureteroscopy Imaging - 01/16 CT scan 6 mm proximal left urete jason stone with hydronephrosis - 03/19 renal ultrasound multiple bilater al stones right 1.4 cm, left 6 mm - 11/17 renal ultrasound 4 mm stones righ t, 4 mm stone left Stone analysis - 01/16 mix calcium oxalate with carbona te apatite stone Intervention - 10/17 right ESWL Current medications - allopurinol 100 mg, vitamin B6 100 mg Therapeutic plan - hydration - vitamin B6 - allopurinol Erectile dysfunction Initial presentation - Progressive - Able to initiate but cannot maintain erections sufficient for intercourse Prior therapy - on demand medications Associated diagnosis sleep apnea is using sleep apnea machine Discussion of testosterone related to sleep apnea and erectile quality Current therapy - tadalafil daily Therapeutic plan Lower urinary tract symptoms Current symptoms include weakness of stream and feeling of incomplete emptying Nocturia 1-2 PFSH Medical History Anxiety Arthritis of left hip BPH (benign prostatic hyperplasia) Cirrhosis COVID-19 vaccine series completed GERD (gastroesophageal reflux disease) Hepatitis B Hip pain Kidney stone Obesity Sleep apnea Surgical History H/O colonoscopy History of appendectomy History of back surgery History of lithotripsy History of tonsillectomy History of total left hip arthroplasty Family History Father No problems noted. Mother No problems noted. Daughter No problems noted. Social History Housing: House Are you a primary child caregiver private home to a significant other at home: No Do you presently have visiting nurse or other home services: No Alcohol intake: current Alcohol intake frequency: holidays/special occasions only Alcohol type: hard liquor Patient Tobacco Use Status: Never used Tobacco e-Cigarette/Vaping Use: Never Used Second Hand Smoke Exposure: No service: No 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al status: retired 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 Cognitive needs: No Hearing needs: No Vision needs: Yes Assessment & Plan Assessment & Plan (1) BPH loc w urin obs/LUTS: Code(s): N40.1 - Benign prostatic hyperplasia with lower urinary tract symptoms (2) Nephrolithiasis: Comment: Mixed calcium oxalate stones December 2020 Code(s): N20.0 - Calculus of kidney Plan Six-month follow-up renal ultrasound Orders: Orders US renal BI 11/22/21 N20.0 - Calculus of kidney Patient Instructions: Imaging studies, laboratory and physical exam results were discussed and re viewed in detail. No major barriers to patient understanding were identified. An opportunity to ask questions regarding the treatment plan was provided. All questions were answered. The patient expressed understanding and agreement with the above treatment plan. The patient is aware they should contact our office by phone for worsening of their current condition or the appearance of new urologic symptoms. Compliance is encouraged with any medications and followup testing that is ordered. It is a privilege to participate in the urologic care of your patient. If you have any questions or concerns regarding treatment for the above conditions, or other urologic issues, please do not hesitate to contact me. The office telephone contact is [phone]. This note is constructed using voice recognition software. While every effort has been made to ensure accuracy car mechanic errors may have been included. Yours sincerely, Dr Siddhartha Soliz MD, [facility] - Urology Providers of Expert, Compassionate Care for the Genitourinary System Telehealth Telehealth Location of provider rendering services: practice address Location of patient: address on file Patient Identification confirmed using: Name, : Yes Telehealth method: voice only Patient verbally consented to treatment: Yes Patient verbally consented to billing insurance company: Yes Patient informed of any privacy concerns related to visit: Yes Coding Level of Care Code Tele Est Pt Level 3 (53708) Diagnoses BPH loc w urin obs/LUTS N40.1 Nephrolithiasis N20.0
== END 2021-12-02 16:26 | disposition left against medical advice (07) ==
PROVIDERS: PCP Internal Medicine; Visit Provider Urology
DX: N40.1 Benign prostatic hyperplasia with lower urinary tract symptoms (principal); N20.0 Calculus of kidney
CPT/HCPCS: 99024

== ENCOUNTER → 2022-01-03 13:59 | Outpatient (BNVA) | payer MEDICARE, SELFPAY | PROVIDERS: PCP Internal Medicine; Visit Provider Urology | DX: N40.1 Benign prostatic hyperplasia with lower urinary tract symptoms (principal); R39.14 Feeling of incomplete bladder emptying; R39.12 Poor urinary stream; R35.1 Nocturia; N52.9 Male erectile dysfunction, unspecified; N20.0 Calculus of kidney | CPT/HCPCS: Q3014 ==

== ENCOUNTER 2022-01-10 07:36 | Outpatient (REF) | payer MEDICARE, SELFPAY ==
--- NOTE | ~2022-01-10 | US_ITS ---
EXAMINATION: US COMPLETE ABDOMEN WITH LIVER ELASTOGRAPHY CLINICAL INFORMATION: Chronic viral hepatitis B. Cirrhosis of liver. COMPARISON: None. TECHNIQUE: Real-time imaging of the abdominal viscera. Noninvasive ultrasound liver fibrosis assessment is performed using Naif ElastPQ point quantification shear wave elastography (2D-SWE) with a C5-2 MHz transducer. Multiple elastography samples are obtained. FINDINGS: PANCREAS: Normal. The visualized pancreatic head and body are normal in appearance. The remainder of the pancreas is obscured from visualization by the overlying bowel gas. ABDOMINAL AORTA: The proximal and middle aortic segments are normal in caliber. The distal segment is not visualized. INFERIOR VENA CAVA: Visualized portions are normal. LIVER: The liver demonstrates normal size, contour and increased echogenicity. There is an anechoic cyst left hepatic lobe measuring 1.9 x 1.7 x 2.3 cm and right hepatic lobe measuring 1.0 x 1.7 x 1.1 cm. The right lobe measures 15.7 cm in length. The left lobe measures 12.7 cm in length. Portal flow is hepatopedal. Shear wave liver elastography median stiffness is 1.60 m/s (reference: normal median stiffness is 1.3 m/s or less). IQR/median stiffness to assess sampling precision is 0.29 (reference: good quality data set is IQR/median stiffness of 0.15 or less). GALLBLADDER: There is an echogenic gallstone with shadowing measuring 2.2 x 2.0 x 2.7 cm. No additional echogenic calculi seen. There is no wall thickening. There is no pericholecystic fluid collection. COMMON BILE DUCT: Normal in caliber measuring 0.6 cm in diameter. RIGHT KIDNEY: There are multiple echogenic mobile stones. Lower pole stones measures 1.5 x 1.3 x 1.4 cm, 1.0 x 0.8 x 1.1 cm and 1.4 x 0.7 x 0.8 cm. The kidney measures 9.7 cm in maximum dimension. LEFT KIDNEY: There are multiple echogenic stones in lower pole measuring 0.7 x 0.7 x 0.6 cm. A midpole echogenic stone measures 0.6 x 0.5 x 0.6 cm. The kidney measures 10.6 cm in maximum dimension. SPLEEN: The spleen measures 12.0 cm in maximum dimension. FREE FLUID: None. US/US abdomen comp w elastography IMPRESSION: Cholelithiasis with mild wall thickening but no tenderness. Diffuse echogenic liver with hepatic cysts. There are bilateral echogenic nonobstructive renal calculi. Liver elastography: Median liver stiffness measures 1.60m/s which corresponds to cACLD ruled out. REFERENCE: Society of Radiologists in Ultrasound Liver Stiffness Thresholds (2020): LIVER STIFFNESS THRESHOLDS: *Liver Stiffness equal or less than 1.3 m/s: High probability of being normal. *Liver Stiffness less than 1.7 m/s: In the absence of other known clinical signs, rules out compensated advanced chronic liver disease. *Liver Stiffness 1.7-2.1 m/s: Suggestive of compensated advanced chronic liver disease but need further test for confirmation. *Liver Stiffness over 2.1 m/s: Rules in compensated advanced chronic liver disease. *Liver Stiffness over 2.4 m/s: Suggestive of clinically significant portal hypertension. QUALITY OF DATA SET: *IQR/Median value equal or less than 0.15 implies a quality data set. *IQR/Median value over 0.15 implies a poor quality data set. SIGNIFICANT CHANGE FROM PRIOR EXAM: Significant change if liver stiffness measurement is 10% or greater from prior exam. OTHER CONSIDERATIONS: The stage of liver fibrosis may be overestimated in the setting of acute hepatitis, liver inflammation, elevated liver function tests, hepatic vascular congestion, obstructive cholestasis, non-fasting state, and infiltrative diseases such as amyloidosis and lymphoma. In some patients with NAFLD, the liver stiffness thresholds for compensated advanced chronic liver disease may be lower. In causes other than viral hepatitis and NAFLD, liver stiffness thresholds are not well established.
--- NOTE | ~2022-01-10 | XR_ITS ---
EXAMINATION: XR ABDOMEN KUB CLINICAL INDICATION: Urinary tract calculi. COMPARISON: Ultrasound abdomen 01/10/2022, renal ultrasound 11/22/2021, KUB 09/28/2021; CT abdomen and pelvis noncontrast 01/02/2021 TECHNIQUE: AP x2 views of the abdomen. FINDINGS: There is a large laminated gallstone again seen right upper quadrant. The right lower pole calculus is less dense and smaller when compared with prior KUB 09/28/2021. The right ureteral stent is no longer present. Other calculi noted on ultrasound are not appreciated on plain film. Bowel gas unremarkable. Multilevel degenerative changes thoracic and lumbosacral spine. Left hip replacement. XR/XR KUB IMPRESSION: -Right lower pole calculus decreased since prior KUB 09/28/2021. -Right ureteral stent no longer present. -Gallstone again noted.
== END 2022-01-10 07:37 | disposition home or self-care (01) ==
LOC: HO.US 07:36
PROVIDERS: Visit Provider Internal Medicine
DX: N20.0 Calculus of kidney (principal); B18.1 Chronic viral hepatitis B without delta-agent; K74.69 Other cirrhosis of liver
CPT/HCPCS: 74018; 76705; 76981

== ENCOUNTER 2022-01-24 07:21 | Outpatient (REF) | payer MEDICARE, SELFPAY ==
[2022-01-24 07:45] LABS: Imm Gran Abs Auto 0.01 X10*3/uL (0.00-0.03); Imm Gran Pct Auto 0.3 % (0.0-0.4); Mean Corpuscular HGB Conc 32.7 g/dl (31.0-36.0); Monocytes Absolute Auto 0.4 X10*3/uL (0.1-1.2)
[2022-01-24 07:47] LABS: Basophils Percent Auto 0.8 % (0-2); Eosinophils Absolute Auto 0.1 X10*3/uL (0.0-0.4); Eosinophils Percent Auto 2.7 % (0-4); Hematocrit 39.8 % (42.0-52.0); Lymphocytes Absolute Auto 0.9 X10*3/uL (1.2-4.9); Lymphocytes Percent Auto 25.8 % (20-40); Mean Corpuscular Hemoglobin 29.6 pg (27.0-33.0); Mean Corpuscular Volume 90.7 fL (80.0-98.0); Mean Platelet Volume 11.3 fL (9.4-12.4); Monocytes Percent Auto 11.5 % (2-11); Neutrophils Absolute Auto 2.2 x10*3/uL (2.0-8.3); Neutrophils Percent Auto 58.9 % (45-73); Platelet Count 86 X10*3/uL (160-400); Red Blood Count 4.39 X10*6/uL (4.60-5.80); Red Cell Distribution Width 14.3 % (11.0-16.0); White Blood Count 3.7 X10*3/uL (4.8-10.8)
[2022-01-24 07:51] LABS: INTERNATIONAL NORM RATIO 1.2 (0.9-1.1); Prothrombin Time 13.5 SEC (10.0-13.1)
[2022-01-24 08:22] LABS: Alanine Aminotransferase 22 U/L (0-40); Albumin Level 3.5 g/dL (3.5-5.0); Alkaline Phosphatase 96 U/L (39-117); Anion Gap 10 (12-20); Aspartate Amino Transferase 34 U/L (5-37); Bilirubin Direct 0.5 mg/dL (0.0-0.5); Bilirubin Total 1.6 mg/dL (0.0-1.0); Blood Urea Nitrogen 20 mg/dL (9-16); Carbon Dioxide 26 mmol/L (22-29); Chloride 106 mmol/L (96-108); Estimated Glomerular Filt Rate > 60; Glucose Random 108 mg/dL (60-115); Potassium 4.2 mmol/L (3.3-5.1); Sodium 138 mmol/L (135-145); Total Protein 6.2 g/dL (6.5-8.0)
[2022-01-25 18:43] LABS: Hepatitis B Viral DNA Qn - cp 2.89 Log IU/mL (NOT DETECTED); Hepatitis B Viral DNA Qn-IU/mL 781 IU/mL (NOT DETECTED)
[2022-01-27 19:27] LABS: FIB-ALT 18 U/L (9-46); FIB-Alpha-2-Macroglobulin 273 mg/dL (106-279); FIB-Apolipoprotein A1 164 mg/dL (94-176); FIB-GGT 28 U/L (3-70); FIB-Haptoglobin 52 mg/dL (43-212); Liver Fibrosis Score 0.72; Liver Fibrosis Stage F3; Nec Inflam Act Grade A0; Nec Inflam Act Score 0.12
== END 2022-01-24 07:22 | disposition home or self-care (01) ==
LOC: HO.LAB 07:21
PROVIDERS: PCP Internal Medicine; Visit Provider Internal Medicine
DX: B18.1 Chronic viral hepatitis B without delta-agent (principal); K74.69 Other cirrhosis of liver
CPT/HCPCS: 36415; 80048; 80076; 81596; 82105; 85025; 85610; 87517

== ENCOUNTER 2022-07-10 06:38 | Outpatient (REF) | payer MEDICARE, SELFPAY ==
--- NOTE | ~2022-07-10 | US_ITS ---
EXAMINATION: US COMPLETE ABDOMEN WITH LIVER ELASTOGRAPHY CLINICAL INFORMATION: Chronic viral hepatitis B COMPARISON: Previous abdominal ultrasound most recent December [address] December 2020 TECHNIQUE: Real-time imaging of the abdominal viscera. Noninvasive ultrasound liver fibrosis assessment is performed using Naif ElastPQ point quantification shear wave elastography (2D-SWE) with a C5-2 MHz transducer. Multiple elastography samples are obtained. FINDINGS: PANCREAS: Normal. ABDOMINAL AORTA: The proximal, middle, and distal aortic segments are normal in caliber. INFERIOR VENA CAVA: Visualized portions are normal. LIVER: Liver echotexture is increased and heterogeneous suggestive of hepatocellular disease. The liver is normal in size and contour. There are 2 cysts measuring 2.1 x 1.8 x 1.3 cm in the left lobe and 2.2 x 1.6 x 1.6 cm in the right lobe. No other focal lesion or intrahepatic biliary duct dilatation. The right lobe measures 16 cm in length. The left lobe measures 14 cm in length. Portal flow is normal/hepatopedal Shear wave liver elastography median stiffness is 1.3 m/s (reference: normal median stiffness is 1.3 m/s or less). IQR/median stiffness to assess sampling precision is 0.06 (reference: good quality data set is IQR/median stiffness of 0.15 or less). Exam is limited due to low confidence interval. GALLBLADDER: The gallbladder is enlarged. There are gallstones. The gallbladder wall is normal in thickness. COMMON BILE DUCT: Normal in caliber measuring 0.5 cm in diameter. RIGHT KIDNEY: There is a small stone in the lateral midpole measuring 3 x 4 mm.. No hydronephrosis. No renal calculi or focal parenchymal lesions. The kidney measures 11.7 cm in maximum dimension. LEFT KIDNEY: Normal. No hydronephrosis. No renal calculi or focal parenchymal lesions. The kidney measures 10 cm in maximum dimension. SPLEEN: Upper normal in size. The spleen measures 12 cm in maximum dimension. FREE FLUID: None. US/US abdomen comp w elastography IMPRESSION: 1. Impression: Echogenic heterogeneous liver suggestive of hepatocellular disease. 2 liver cysts. Dilated gallbladder and gallstones. Small right renal stone. 2. Liver elastography: Limited due to low confidence interval. REFERENCE: Society of Radiologists in Ultrasound Liver Stiffness Thresholds (2020): LIVER STIFFNESS THRESHOLDS: *Liver Stiffness equal or less than 1.3 m/s: High probability of being normal. *Liver Stiffness less than 1.7 m/s: In the absence of other known clinical signs, rules out compensated advanced chronic liver disease. *Liver Stiffness 1.7-2.1 m/s: Suggestive of compensated advanced chronic liver disease but need further test for confirmation. *Liver Stiffness over 2.1 m/s: Rules in compensated advanced chronic liver disease. *Liver Stiffness over 2.4 m/s: Suggestive of clinically significant portal hypertension. QUALITY OF DATA SET: *IQR/Median value equal or less than 0.15 implies a quality data set. *IQR/Median value over 0.15 implies a poor quality data set. SIGNIFICANT CHANGE FROM PRIOR EXAM: Significant change if liver stiffness measurement is 10% or greater from prior exam. OTHER CONSIDERATIONS: The stage of liver fibrosis may be overestimated in the setting of acute hepatitis, liver inflammation, elevated liver function tests, hepatic vascular congestion, obstructive cholestasis, non-fasting state, and infiltrative diseases such as amyloidosis and lymphoma. In some patients with NAFLD, the liver stiffness thresholds for compensated advanced chronic liver disease may be lower. In causes other than viral hepatitis and NAFLD, liver stiffness thresholds are not well established.
[2022-07-10 07:15] LABS: Basophils Percent Auto 0.8 % (0-2); Eosinophils Absolute Auto 0.1 X10*3/uL (0.0-0.4); Imm Gran Abs Auto 0.01 X10*3/uL (0.00-0.03); Imm Gran Pct Auto 0.3 % (0.0-0.4); MANUAL DIFF FLAG SCAN; Neutrophils Absolute Auto 2.3 x10*3/uL (2.0-8.3); PLT CLUMP 1; SCAN SMEAR FLAG 1
[2022-07-10 07:19] LABS: Eosinophils Percent Auto 1.8 % (0-4); Hematocrit 40.3 % (42.0-52.0); Hemoglobin 13.5 g/dl (14.0-18.0); Lymphocytes Absolute Auto 1.1 X10*3/uL (1.2-4.9); Lymphocytes Percent Auto 29.2 % (20-40); Mean Corpuscular HGB Conc 33.5 g/dl (31.0-36.0); Mean Corpuscular Hemoglobin 29.9 pg (27.0-33.0); Mean Corpuscular Volume 89.2 fL (80.0-98.0); Monocytes Absolute Auto 0.3 X10*3/uL (0.1-1.2); Monocytes Percent Auto 8.9 % (2-11); Platelet Count 82 X10*3/uL (160-400); Red Blood Count 4.52 X10*6/uL (4.60-5.80); Red Cell Distribution Width 14.9 % (11.0-16.0); White Blood Count 3.8 X10*3/uL (4.8-10.8)
[2022-07-10 07:23] LABS: INTERNATIONAL NORM RATIO 1.1 (0.9-1.1); Prothrombin Time 12.1 SEC (10.0-13.1)
[2022-07-10 07:44] LABS: Alanine Aminotransferase 18 U/L (0-40); Albumin Level 3.6 g/dL (3.5-5.0); Alkaline Phosphatase 108 U/L (39-117); Anion Gap 8 (12-20); Aspartate Amino Transferase 28 U/L (5-37); Bilirubin Direct 0.5 mg/dL (0.0-0.5); Bilirubin Total 1.9 mg/dL (0.0-1.0); Blood Urea Nitrogen 18 mg/dL (9-16); Calcium 8.9 mg/dL (8.4-10.2); Carbon Dioxide 27 mmol/L (22-29); Chloride 110 mmol/L (96-108); Estimated Glomerular Filt Rate > 60; Glucose Random 91 mg/dL (60-115); Potassium 4.3 mmol/L (3.3-5.1); Sodium 141 mmol/L (135-145); Total Protein 6.3 g/dL (6.5-8.0)
[2022-07-10 08:20] LABS: SLIDE REVIEW VERIFIED
[2022-07-11 21:39] LABS: Hepatitis BE Antibody NON-REACTIVE (NON-REACTIVE)
[2022-07-12 19:18] LABS: Hepatitis B Viral DNA Qn - cp <1.00 NOT DETECTED Log IU/mL (NOT DETECTED); Hepatitis B Viral DNA Qn-IU/mL <10 NOT DETECTED IU/mL (NOT DETECTED)
[2022-07-13 14:38] LABS: Alpha Fetoprotein 6.1 ng/mL (<6.1)
== END 2022-07-10 06:39 | disposition home or self-care (01) ==
LOC: HO.US 06:38
PROVIDERS: PCP Internal Medicine; Visit Provider Internal Medicine
DX: B18.1 Chronic viral hepatitis B without delta-agent (principal); K74.69 Other cirrhosis of liver
CPT/HCPCS: 36415; 76705; 76981; 80048; 80076; 82105; 85025; 85610; 86707; 87517

== ENCOUNTER → 2022-08-11 14:53 | Outpatient (BNVA) | payer MEDICARE, SELFPAY | PROVIDERS: PCP Internal Medicine; Visit Provider Urology | DX: N40.1 Benign prostatic hyperplasia with lower urinary tract symptoms (principal); N52.9 Male erectile dysfunction, unspecified; N20.0 Calculus of kidney | CPT/HCPCS: 99212 ==

== ENCOUNTER 2023-03-07 09:54 | Outpatient (REF) | payer MEDICARE, SELFPAY ==
[2023-03-07 10:18] LABS: MANUAL DIFF FLAG NO
[2023-03-07 10:53] LABS: Basophils Percent Auto 0.5 % (0-2); Eosinophils Absolute Auto 0.1 X10*3/uL (0.0-0.4); Eosinophils Percent Auto 1.8 % (0-4); Hemoglobin 14.1 g/dl (14.0-18.0); Imm Gran Abs Auto 0.01 X10*3/uL (0.00-0.03); Imm Gran Pct Auto 0.2 % (0.0-0.4); Lymphocytes Absolute Auto 1.5 X10*3/uL (1.2-4.9); Lymphocytes Percent Auto 24.4 % (20-40); Mean Corpuscular HGB Conc 33.6 g/dl (31.0-36.0); Mean Corpuscular Hemoglobin 30.1 pg (27.0-33.0); Mean Corpuscular Volume 89.6 fL (80.0-98.0); Mean Platelet Volume 11.1 fL (9.4-12.4); Monocytes Absolute Auto 0.8 X10*3/uL (0.1-1.2); Monocytes Percent Auto 13.3 % (2-11); Neutrophils Absolute Auto 3.6 x10*3/uL (2.0-8.3); Neutrophils Percent Auto 59.8 % (45-73); Platelet Count 105 X10*3/uL (160-400); Red Blood Count 4.69 X10*6/uL (4.60-5.80); Red Cell Distribution Width 14.1 % (11.0-16.0)
[2023-03-07 11:00] LABS: Prothrombin Time 12.7 SEC (11.1-13.3)
[2023-03-07 11:22] LABS: Alanine Aminotransferase 15 U/L (0-40); Albumin Level 3.8 g/dL (3.5-5.0); Alkaline Phosphatase 97 U/L (39-117); Anion Gap 12 (12-20); Aspartate Amino Transferase 40 U/L (5-37); Bilirubin Direct 0.4 mg/dL (0.0-0.5); Bilirubin Total 1.4 mg/dL (0.0-1.0); Blood Urea Nitrogen 16 mg/dL (9-16); Calcium 9.4 mg/dL (8.4-10.2); Carbon Dioxide 26 mmol/L (22-29); Chloride 108 mmol/L (96-108); Estimated Glomerular Filt Rate > 60; Glucose Random 92 mg/dL (60-115); Potassium 4.4 mmol/L (3.3-5.1); Sodium 142 mmol/L (135-145); Total Protein 6.9 g/dL (6.5-8.0)
[2023-03-07 11:38] LABS: HBS Num1 0.21 mIU/mL (0-7.99); ~Hepatitis B Surface Antibody NONREACTIVE (Nonreactive)
[2023-03-07 12:29] LABS: HBsAGNum2 Reactive; HBsAGNum3 Reactive; Hepatitis B Surface Antigen Retest CNFM (Negative)
[2023-03-09 12:38] LABS: Alpha Fetoprotein 5.1 ng/mL (<6.1)
[2023-03-09 18:29] LABS: Hepatitis B Viral DNA Qn - cp NOT DETECTED Log IU/mL (NOT DETECTED); Hepatitis B Viral DNA Qn-IU/mL NOT DETECTED (NOT DETECTED)
[2023-03-09 21:19] LABS: Hepatitis BE Antigen NON-REACTIVE (NON-REACTIVE)
[2023-03-09 23:10] LABS: Hepatitis BE Antibody NON-REACTIVE (NON-REACTIVE)
[2023-03-14 15:24] LABS: FIB-ALT 13 U/L (9-46); FIB-Alpha-2-Macroglobulin 305 mg/dL (106-279); FIB-Apolipoprotein A1 160 mg/dL (94-176); FIB-GGT 25 U/L (3-70); FIB-Haptoglobin 84 mg/dL (43-212); FIB-Total Bilirubin 1.3 mg/dL (0.2-1.2); Liver Fibrosis Score 0.75; Liver Fibrosis Stage F4; Nec Inflam Act Grade A0; Nec Inflam Act Score 0.08
== END 2023-03-07 09:55 | disposition home or self-care (01) ==
LOC: HO.LAB 09:54
PROVIDERS: PCP Internal Medicine; Visit Provider Internal Medicine
DX: K74.60 Unspecified cirrhosis of liver (principal); B18.1 Chronic viral hepatitis B without delta-agent
CPT/HCPCS: 36415; 80048; 80076; 81596; 82105; 85025; 85610; 86706; 86707; 87340; 87350; 87517

== ENCOUNTER 2023-04-30 19:09 | Day surgery (SDC) | payer MEDICARE, SELFPAY ==
--- NOTE | ~2023-04-30 | CT_ITS ---
EXAMINATION: CT ABDOMEN AND PELVIS WITHOUT CONTRAST CLINICAL INFORMATION: Left flank pain. COMPARISON: CT abdomen pelvis dated 01/02/2021. TECHNIQUE: Multidetector volumetric imaging was performed from the superior aspect of the liver through the pubic symphysis. Sagittal and coronal reformatted images were obtained on the technologist's workstation. This CT examination was performed using dose optimization techniques as appropriate, variously including the following: *Automated exposure control *Adjustment of mA and/or kV according to patient size (this includes techniques or standardized protocols for targeted exams where dose is matched to indication/reason for exam; i.e. extremities or head) *Use of iterative reconstruction technique DLP: 864 mGy-cm FINDINGS: LUNG BASES: The lung bases are clear. Heart size is normal. There are coronary artery calcifications. LIVER, GALLBLADDER, AND BILIARY TREE: The liver is normal in size, shape, and attenuation. There are 2 stable low-attenuation lesions within the liver measuring 1.5 and 1.7 cm, respectively. Both likely represent simple cysts. No biliary ductal dilatation is present. There is a 1.8 cm gallstone. There is no gallbladder wall thickening or obvious pericholecystic inflammatory changes. PANCREAS: Unremarkable. SPLEEN: Unremarkable. ADRENAL GLANDS: Unremarkable. KIDNEYS AND URETERS: Right kidney and ureter: The right kidney is normal in size. There are multiple right renal calculi the majority of them are within the lower pole. The largest right renal calculus measures 6 mm. It measures approximately 318 Hounsfield units. There is no right perinephric stranding. No right hydronephrosis. No right ureteral calculus. Left kidney and ureter: The left kidney is normal in size. Left kidney contains multiple renal calculi. The largest is located within the interpolar region and measures 9 mm in length. This calculus measures 305 Hounsfield units. There is mild left hydronephrosis. There is moderate left perinephric stranding. There is an obstructing calculus within the proximal left ureter at the level of the superior endplate of the L3 vertebral body measuring 6 mm in length. The calculus measures 1047 Hounsfield units. There is left periureteric stranding. The distal left the ureter distal to this obstructing calculus is normal in appearance. BLADDER: The urinary bladder is minimally distended. There are no urinary bladder calculi. GASTROINTESTINAL TRACT: The small bowel and colon are normal in caliber. The appendix is not definitively identified, however, there are no inflammatory changes within the expected location of the appendix to suggest an acute inflammatory process. There is sigmoid colon diverticulosis without evidence of acute diverticulitis. ABDOMINAL WALL: No significant hernia is appreciated. LYMPH NODES: No retroperitoneal or pelvic lymphadenopathy. VASCULAR: No abdominal aortic aneurysm. Moderate vascular calcifications. PELVIC VISCERA: Unremarkable. OSSEOUS STRUCTURES: There is degenerative disease of the visualized spine. CT/CT abdomen pelvis wo IV con IMPRESSION: - There is an obstructing calculus within the proximal left ureter at the level of the superior endplate of the L3 vertebral body measuring 6 x 4 mm. The calculus measures 1047 Hounsfield units. There is left sided hydroureteronephrosis. There is left perinephric stranding. - There are bilateral nonobstructive renal calculi as described. - Stable hepatic cysts as described. - Cholelithiasis without evidence of acute cholecystitis. - Diverticulosis without evidence of acute diverticulitis. Fleischner guidelines were followed. Findings were discussed with Dr. Bentley and 9:27 PM on 04/30/2023.
--- NOTE | ~2023-04-30 | FL_ITS ---
PROCEDURE: Retrograde Urography INDICATION: Stone FLUOROSCOPY: Fluoroscopy Time: 13.3 seconds Dose/air kerma: 8.12 mGy Images saved: 6 TECHNIQUE: Multiple intraoperative fluoroscopic images were submitted during reported urologic procedure. Correlation with operative report. Evaluation is limited secondary to fluoroscopic technique. FL/FL guidance in OR IMPRESSION: Fluoroscopy was provided by radiology for this procedure. Please refer to the operative report for further information.
[2023-04-30 19:31] VITALS: BP 170/68; PULSE 64; RESP 18; TEMP 36.4; O2SAT 99; BMI 34.6
--- NOTE | 2023-04-30 19:31 | ED_ITS ---
HPI - Abdominal Pain General Chief Complaint: Urogenital-Male Stated Complaint: ?kidney stones Time Seen by Provider: 04/30/23 21:28 Source: patient Mode of arrival: ambulatory Limitations: no limitations History of Present Illness HPI narrative: 77-year-old male came in today for sudden onset of left-sided abdominal/flank pain started about 17:00 pain is localized to the left flank area radiates down to the left lower quadrant area and the left scrotum, pain is severe 10/10 associated with nausea and vomiting patient had previous similar pain in the past was due to kidney stones at all with needed surgical intervention by Dr. Soliz last ESWL was 3 years ago. Related Data Home Medications ?Medication ?Instructions ?Recorded ?Confirmed entecavir 0.5 mg tablet 1 tab PO DAILY 02/04/21 07/27/23 omeprazole 20 mg capsule,delayed 20 mg PO DAILY@0630 03/25/21 07/27/23 release allopurinol 100 mg tablet 100 mg PO Q48H 05/01/23 07/27/23 vitamin B6-vitamin E-magnesium 100 tab PO DAILY 07/27/23 07/27/23 tablet Previous Rx's ?Medication ?Instructions ?Recorded allopurinol 100 mg tablet 100 mg PO .QOD 90 days #45 tabs 09/24/23 sildenafil 100 mg tablet 100 mg PO ONCE PRN sexual activity 10/16/23 #30 tabs tadalafil 5 mg tablet 5 mg PO DAILY 30 days #30 tabs 10/16/23 clonazepam 0.5 mg tablet 0.5 mg PO BID #60 tabs 11/26/23 Allergies Allergy/AdvReac Type Severity Reaction Status Date / Time No Known Allergies Allergy Verified 11/07/23 15:24 Review of Systems Review of Systems All other systems are reviewed and are negative Constitutional: Reports as per HPI and Reports no additional constitutional complaints Eyes: Reports as per HPI and Reports no additional eye complaints Reports system reviewed and no additional complaints, except as documented Cardiovascular: Reports as per HPI and Reports no additional cardiovascular complaints Respiratory: Reports as per HPI and Reports no additional respiratory complaints Gastrointestinal: Reports as per HPI and Reports no additional gastrointestinal complaints Genitourinary: Reports no additional female genitourinary complaints Musculoskeletal: Reports no additional musculoskeletal complaints Skin/Breast: Reports system reviewed and no additional complaints, except as docu Psychiatric: Reports no additional psychiatric complaints Endocrine: Reports no additional endocrine complaints Hematologic/Lymphatic: Reports no additional hematologic/lymphatic complaints Allergic/Immunologic: Reports no additional allergic/immunologic complaints Reports system reviewed and no additional complaints, except as documented and Reports Abnormal speech present [facility] Past Medical History Medical History Cirrhosis GERD (gastroesophageal reflux disease) Kidney stone Hepatitis B COVID-19 vaccine series completed Sleep apnea BPH (benign prostatic hyperplasia) Obesity Arthritis of left hip Anxiety Hip pain Surgical History History of total left hip arthroplasty History of lithotripsy H/O colonoscopy History of back surgery History of appendectomy History of tonsillectomy Family History Family History Father No problems noted. Mother No problems noted. Daughter No problems noted. 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 Cognitive needs: No Hearing needs: No Vision needs: Yes Physical Exam ED Vital Signs: Vital Signs - 24 hr 04/30/23 19:31 04/30/23 20:56 04/30/23 21:38 Temperature 97.5 F 97.7 F 98.3 F Pulse Rate 64 66 72 Respiratory Rate 18 18 19 Blood Pressure 170/68 H 180/85 H 146/70 H Pulse Oximetry 99 97 98 Oxygen Delivery Method Room Air Room Air Room Air 04/30/23 23:24 05/01/23 04:05 05/01/23 06:14 Temperature 98.1 F Pulse Rate 68 58 58 Respiratory Rate 20 16 17 Blood Pressure 157/74 H 119/65 126/66 Pulse Oximetry 96 96 97 Oxygen Delivery Method Room Air Room Air Room Air 05/01/23 07:05 05/01/23 09:10 05/01/23 10:56 Temperature 97.5 F 97.4 F 97.5 F Pulse Rate 58 59 56 Respiratory Rate 15 15 16 Blood Pressure 138/50 L 135/75 143/79 H Pulse Oximetry 99 98 Oxygen Delivery Method Room Air Room Air Room Air BMI result Body Mass Index 34.6 Vital signs have been reviewed and appear to be correct. Blood pressure elevated. Heart rate normal. Respiratory rate normal. Temperature normal. Oxygen saturation normal. Appearance: Alert. Oriented X3. No acute distress. Head: Normal external exam. Normocephalic. Atraumatic. No Jenkins signs noted. No raccoon eyes noted Eyes: PERRLA. EOMI. Conjunctiva and sclera normal. Eyelids normal. ENT: TM's Normal. Pharynx normal. Uvula midline. Moist mucous membranes. No trismus noted. No drooling noted. No muffled voice noted. Neck: Normal inspection. Neck supple. FROM. No adenopathy. Thyroid Normal. No meningeal signs. No neck mass noted. CVS: Normal heart rate and rhythm. Heart sound normal. No murmurs noted. Pulses normal throughout. Respiratory: No respiratory distress. Painless inspiration. Breath sounds normal. No wheezes/rales/rhonchi noted. Chest nontender. No accessory muscle usage noted or decreased air movement noted. Abdomen: Soft, left abdominal tenderness, no rebound tenderness, no guarding.. Bowel sounds normal in all 4 quadrants. No distention noted. No organomegaly noted. No visible injury noted. Back: Left CVA tenderness. Full range of motion noted. Skin: Skin warm and dry. Normal skin color. Normal skin turgor. No rashes/lesions/lacerations noted. Extremities: No lower extremity edema. Extremities exhibit normal range of motion. Extremities nontender. Neuro: Oriented X 3. Cranial nerve exam: II-XII are grossly intact No motor deficit. No sensory deficit. Reflexes normal. Course Course Course Narrative: RME- 19:32 19:32pm - 77-year-old male with a past medical history of kidney stones being followed by Dr. Soliz and has had prior lithotripsies in the past presenting to the ER with complaints of left flank pain with associated nausea reports ?I think I have a kidney stone?. Reports this all started a few hours prior to arrival. He denies any fevers, vomiting, dysuria hematuria or any other injuries complaints or concerns at this time. Plan: Patient will be sent back to the waiting room labs, UA and CT scan of abdomen pelvis without IV contrast ordered at this time. Reevaluation(s) Reevaluation #1: 6 mm obstructing stone in the proximal left ureter causing severe pain, patient had a prior history of surgical intervention for ESWL and stent placement, patient is not showing signs of sepsis no need for antibiotic at this point will continue with IV hydration, pain control, antinausea medication, and consult Urology Time: 21:55 Medical Decision Making Differential Diagnosis Differential Diagnoses: The differential diagnosis associated with the presentation includes (Renal colic, obstructive ureteral stone, colitis, diverticulitis, pancreatitis, cholecystitis, electrolyte derangement, sepsis, severe anemia dehydration, UTI.) Admission/Observation Consideration of admission/observation: Escalation of care including admission/observation considered Consult Healthcare Provider Management of the patient was discussed with: [employer] (Dr. Soliz) Lab Data MDM Lab Attestation statement: I reviewed the patient's lab results. 04/30/23 20:05 04/30/23 20:04 Labs: Lab Results 04/30/23 04/30/23 Range/Units 20:04 20:05 WBC 6.6 (4.8-10.8) X10*3/uL RBC 4.70 (4.60-5.80) X10*6/uL Hgb 13.9 L (14.0-18.0) g/dl Hct 41.6 L (42.0-52.0) % MCV 88.5 (80.0-98.0) fL MCH 29.6 (27.0-33.0) pg MCHC 33.4 (31.0-36.0) g/dl RDW 14.2 (11.0-16.0) % Plt Count 134 L D (160-400) X10*3/uL MPV 10.6 (9.4-12.4) fL Immature Gran % (Auto) 0.3 (0.0-0.4) % Neut % (Auto) 60.4 (45-73) % Lymph % (Auto) 26.0 (20-40) % [place] % (Auto) 9.9 (2-11) % Eos % (Auto) 2.9 (0-4) % Baso % (Auto) 0.5 (0-2) % Lymph # (Auto) 1.7 (1.2-4.9) X10*3/uL [place] # (Auto) 0.7 (0.1-1.2) X10*3/uL Eos # (Auto) 0.2 (0.0-0.4) X10*3/uL Baso # (Auto) 0.0 (0.0-0.2) X10*3/uL Abs Immat Gran (auto) 0.02 (0.00-0.03) X10*3/uL Absolute Neuts (auto) 4.0 (2.0-8.3) x10*3/uL Absolute Nucleated RBC 0.000 (0.0-0.012) X10*3/uL Nucleated RBC % (auto) 0.0 (0.0-0.2) /100WBC Sodium 142 (135-145) mmol/L Potassium 4.2 (3.3-5.1) mmol/L Chloride 108 (96-108) mmol/L Carbon Dioxide 27 (22-29) mmol/L Anion Gap 11 L (12-20) BUN 20 H (9-16) mg/dL Creatinine 1.14 (0.5-1.4) mg/dL Estim Creat Clear Calc 70.1 Estimated GFR > 60 Random Glucose 121 H (60-115) mg/dL Calcium 9.6 (8.4-10.2) mg/dL Magnesium 2.0 (1.6-2.6) mg/dL Total Bilirubin 1.0 (0.0-1.0) mg/dL Direct Bilirubin 0.4 (0.0-0.5) mg/dL AST 19 (5-37) U/L ALT 8 (0-40) U/L Alkaline Phosphatase 120 H (39-117) U/L Total Protein 7.3 (6.5-8.0) g/dL Albumin 3.9 (3.5-5.0) g/dL Lipase 57 (8-78) U/L Urine Color Dark Yellow Urine Appearance Turbid Urine pH 5.0 (5.0-9.0) Ur Specific [place] >= 1.030 H (1.005-1.025) Urine Protein 100 (2+) H (Neg-Trace) mg/dL Urine Glucose (UA) Negative (Negative) mg/dL Urine Ketones Negative (Negative) mg/dL Urine Blood Large (3+) H (Negative) Urine Nitrite Negative (Negative) Ur Leukocyte Esterase Trace H (Negative) Urine RBC >20 H (0-2) /HPF Urine WBC 0-5 (0-5) /HPF Ur Squamous Epith Cells 0-2 (0-2) /HPF Calcium Oxalate Crystal Present Urine Bacteria None Seen (None Seen) Hyaline Casts 0-2 (0-2) /LPF Urine Yeast Present Independent Interpretation I performed an independent interpretation of an: CT Scan (Abdomen pelvis:- There is an obstructing calculus within the proximal left ureter at the level of the superior endplate of the L3 vertebral body measuring 6 x 4 mm. The calculus measures 1047 Hounsfield units. There is left sided hydroureteronephrosis. There is left perinephric stranding. - There ) Radiology Impression Discussion of test interpretation with radiology: I have reviewed the radiologist's reading. Chronic Conditions Patient?s care impacted by: Other (History of kidney stones.) Medications Administered Discontinued Medications Generic Name Dose Route Start Last Admin Trade Name Freq PRN Reason Stop Dose Admin Acetaminophen 975 mg 04/30/23 20:53 04/30/23 20:55 Acetaminophen 325 Mg Tablet PO 04/30/23 20:54 975 mg ONCE ONE Administration Hydromorphone HCl 1 mg 04/30/23 21:28 04/30/23 22:24 Hydromorphone Hcl 1 Mg/Ml Syringe IVPUSH 04/30/23 21:29 1 mg ONCE ONE Administration Protocol Sodium Chloride 1,000 mls @ 999 mls/hr 04/30/23 21:28 05/01/23 01:27 Ns IV 04/30/23 22:28 Infused .Q1H1M ONE Infusion Levofloxacin 500 mg in 100 mls @ 100 mls/hr 05/01/23 08:37 05/01/23 10:40 Levaquin IV 05/01/23 09:36 Infused PREOP ONE Infusion Ketorolac Tromethamine 30 mg 04/30/23 21:28 04/30/23 22:23 Ketorolac Tromethamine 30 Mg/Ml Vial IVPUSH 04/30/23 21:29 30 mg ONCE ONE Administration Ondansetron HCl 4 mg 04/30/23 21:48 04/30/23 22:23 Ondansetron Hcl 4 Mg/2 Ml Vial IVPUSH 04/30/23 21:49 4 mg ONCE ONE Administration Phenazopyridine HCl 200 mg 05/01/23 13:13 05/01/23 13:18 Phenazopyridine Hcl 200 Mg Tablet PO 05/01/23 13:14 200 mg ONCE ONE Administration Discharge Plan Discharge Clinical Impression: Hydronephrosis with renal and ureteral calculous obstruction Patient Disposition: Admitted As Inpatient Interventions: Admission Worksheet (ED) Last Done: 05/01/23 10:52 Discharge Date/Time: 05/01/23 10:55
--- NOTE | 2023-04-30 20:06 | MHC.EDTECH ---
Patient brought into triage area,labs,and urine obtained and sent to lab.
[2023-04-30 20:10] LABS: MANUAL DIFF FLAG NO
[2023-04-30 20:14] LABS: Appearance Urine Turbid; Color Urine Dark Yellow; Glucose Urine UA Negative (Negative); Leukocyte Esterase Urine Trace (Negative); Nitrite Urine Negative (Negative); Specific Gravity - Urine >= 1.030 (1.005-1.025); UMIC TRIGGER UACC YES; Urine Blood Large (3+) (Negative); Urine Ketones Negative (Negative); Urine Protein 100 (2+) mg/dL (Neg-Trace)
[2023-04-30 20:15] LABS: Basophils Percent Auto 0.5 % (0-2); Eosinophils Absolute Auto 0.2 X10*3/uL (0.0-0.4); Eosinophils Percent Auto 2.9 % (0-4); Hematocrit 41.6 % (42.0-52.0); Hemoglobin 13.9 g/dl (14.0-18.0); Imm Gran Abs Auto 0.02 X10*3/uL (0.00-0.03); Imm Gran Pct Auto 0.3 % (0.0-0.4); Lymphocytes Absolute Auto 1.7 X10*3/uL (1.2-4.9); Mean Corpuscular HGB Conc 33.4 g/dl (31.0-36.0); Mean Corpuscular Hemoglobin 29.6 pg (27.0-33.0); Mean Corpuscular Volume 88.5 fL (80.0-98.0); Mean Platelet Volume 10.6 fL (9.4-12.4); Monocytes Absolute Auto 0.7 X10*3/uL (0.1-1.2); Monocytes Percent Auto 9.9 % (2-11); Neutrophils Percent Auto 60.4 % (45-73); Platelet Count 134 X10*3/uL (160-400); Red Cell Distribution Width 14.2 % (11.0-16.0); White Blood Count 6.6 X10*3/uL (4.8-10.8)
[2023-04-30 20:25] LABS: Alanine Aminotransferase 8 U/L (0-40); Albumin Level 3.9 g/dL (3.5-5.0); Alkaline Phosphatase 120 U/L (39-117); Anion Gap 11 (12-20); Aspartate Amino Transferase 19 U/L (5-37); Bacteria Urine None Seen (None Seen); Bilirubin Direct 0.4 mg/dL (0.0-0.5); Blood Urea Nitrogen 20 mg/dL (9-16); Calcium 9.6 mg/dL (8.4-10.2); Calcium Oxalate Crystals Urine Present; Carbon Dioxide 27 mmol/L (22-29); Chloride 108 mmol/L (96-108); Creatinine Clr Calc Pharmacy 70.1; Estimated Glomerular Filt Rate > 60; Glucose Random 121 mg/dL (60-115); Hyaline Casts Urine 0-2 /LPF (0-2); Lipase 57 U/L (8-78); Potassium 4.2 mmol/L (3.3-5.1); RBC Urine >20 /HPF (0-2); Sodium 142 mmol/L (135-145); Squamous Epithelial Cell Urine 0-2 /HPF (0-2); Total Protein 7.3 g/dL (6.5-8.0); WBC Urine 0-5 /HPF (0-5)
[2023-04-30] MEDS: Acetaminophen 325 MG TABLET 975 MG PO (20:55)
[2023-04-30 20:56] VITALS: BP 180/85; PULSE 66; RESP 18; TEMP 36.5; O2SAT 97
[2023-04-30 21:38] VITALS: BP 146/70; PULSE 72; RESP 19; TEMP 36.8; O2SAT 98
[2023-04-30] MEDS: 0.9 % Sodium Chloride 1,000 ML 999 ML IV (22:23)
[2023-04-30] MEDS: Ketorolac Tromethamine 30 MG/ML VIAL IVPUSH (22:23)
[2023-04-30] MEDS: ondansetron HCL 4 MG/2 ML VIAL IVPUSH (22:23)
[2023-04-30] MEDS: HYDROmorphone HCl 1 MG/ML SYRINGE IVPUSH (22:24)
[2023-04-30 23:24] VITALS: BP 157/74; PULSE 68; RESP 20; O2SAT 96
[2023-05-01] VITALS (10 sets, daily range): BP systolic 116–143; BP diastolic 50–79; PULSE 55–75; RESP 15–17; TEMP 36.3–36.7; O2SAT 96–99
--- NOTE | 2023-05-01 05:22 | PC.NURSE ---
Assumed care of PT at 03:00, pt currently in bed with eyes closed, resp even and unlabored, call leary within reach.
--- NOTE | 2023-05-01 09:06 | PM.UROCN ---
History of Present Illness Consult details Consult date: 05/01/23 Narrative: cc: Left proximal ureteric stone 77-year-old male Recurrent stone former Prior procedure on left side late 2020 Presentation with sudden onset left-sided abdominal and flank pain. Started proximally 05:00 o'clock yesterday afternoon. Radiating to left lower quadrant. Pain severe 10/10 with associated nausea and vomiting Creatinine 1.1, WBC 6.6, calcium 9.6 Imaging - CT There is an obstructing calculus within the proximal left ureter at the level of the superior endplate of the L3 vertebral body measuring 6 x 4 mm. The calculus measures 1047 Hounsfield units. There is left sided hydroureteronephrosis Recommend intervention with left-sided stent placement Review of Systems Constitutional: Constitutional: Reports as per HPI and Reports no additional constitutional complaints Cardiovascular: Cardiovascular: Reports as per HPI and Reports no additional cardiovascular complaints Respiratory: Respiratory: Reports as per HPI and Reports no additional respiratory complaints Gastrointestinal: Gastrointestinal: Reports as per HPI and Reports no additional gastrointestinal complaints Genitourinary: Genitourinary: Reports as per HPI Musculoskeletal: Musculoskeletal: Reports no additional musculoskeletal complaints and Reports as per HPI Neurologic: Reports system reviewed and no additional complaints, except as documented and Reports as per HPI PMF Past Medical History Medical History Cirrhosis GERD (gastroesophageal reflux disease) Kidney stone Hepatitis B COVID-19 vaccine series completed Sleep apnea BPH (benign prostatic hyperplasia) Obesity Arthritis of left hip Anxiety Hip pain Family History Family History Father No problems noted. Mother No problems noted. Daughter No problems noted. Surgical History Surgical History History of total left hip arthroplasty History of lithotripsy H/O colonoscopy History of back surgery History of appendectomy History of tonsillectomy Social History Social History Housing: House Are you a primary childcare center administrator to a significant other at home: No Do you presently have visiting nurse or other home services: No Alcohol intake: never Patient Tobacco Use Status: Never used Tobacco Smoked in Last 30 Days: No e-Cigarette/Vaping Use: Never Used Second Hand Smoke Exposure: No Use of substances other than those prescribed or required for medical reasons: No Any prior treatment program specific to substance use: No Advance Directives: No Advance Directives Information Provided: No service: No 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al status: retired 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 Cognitive needs: No Hearing needs: No Vision needs: Yes Meds Allergies Allergy/AdvReac Type Severity Reaction Status Date / Time No Known Allergies Allergy Verified 04/30/23 19:31 Active Medications: Current Medications Levofloxacin (Levaquin) 500 mg in 100 mls @ 100 mls/hr IV PREOP ONE Stop: 05/01/23 09:36 Home Medications Medication Instructions Recorded Confirmed Last Taken Type entecavir 0.5 mg tablet 1 tab PO DAILY 02/04/21 08/11/22 02/11/21 07:00 History omeprazole 20 mg capsule,delayed 20 mg PO DAILY 03/25/21 08/11/22 08/15/21 History release meloxicam 15 mg tablet 15 mg PO DAILY 08/11/22 08/11/22 Unknown History Physical Exam Vital Signs: Vital Signs: Last Vital Signs Temp 97.5 F 05/01/23 07:05 Pulse 58 05/01/23 07:05 Resp 15 05/01/23 07:05 BP 138/50 L 05/01/23 07:05 Pulse Ox 97 05/01/23 06:14 O2 Del Method Room Air 05/01/23 07:05 BMI result Body Mass Index 34.6 Const: General: cooperative, healthy appearing, comfortable and no acute distress Orientation/consciousness: patient oriented x3 HEENT: Face and sinus: Yes normal facial exam Mouth: moist mucous membranes Neck: Neck: Yes normal visual inspection, Yes full ROM and Yes trachea midline Chest: Chest palpation & inspection: normal inspection of the chest Resp: Effort & Inspection: normal respiratory effort, able to speak in complete sentences and no respiratory distress GI: Inspection: Yes normal to inspection Back/Spine/Pelvis: Cervical Spine: normal cervical lordosis Thoracic/Lumbar Spine: thoracic and lumbar spine normal to inspection Skin: General skin exam: no rashes or lesions noted Neuro: General: patient oriented x3, tone normal and moves all extremities Extrem: General: Yes normal to inspection and Yes capillary refill normal Results Labs 04/30/23 20:05 04/30/23 20:04 Labs: Abnormal lab results 04/30/23 04/30/23 Range/Units 20:04 20:05 Hgb 13.9 L (14.0-18.0) g/dl Hct 41.6 L (42.0-52.0) % Plt Count 134 L D (160-400) X10*3/uL Anion Gap 11 L (12-20) BUN 20 H (9-16) mg/dL Random Glucose 121 H (60-115) mg/dL Alkaline Phosphatase 120 H (39-117) U/L Ur Specific [place] >= 1.030 H (1.005-1.025) Urine Protein 100 (2+) H (Neg-Trace) mg/dL Urine Blood Large (3+) H (Negative) Ur Leukocyte Esterase Trace H (Negative) Urine RBC >20 H (0-2) /HPF Short CBC 04/30/23 Range/Units 20:05 WBC 6.6 (4.8-10.8) X10*3/uL Hgb 13.9 L (14.0-18.0) g/dl Hct 41.6 L (42.0-52.0) % Plt Count 134 L D (160-400) X10*3/uL BMP 04/30/23 20:04 Sodium 142 Potassium 4.2 Chloride 108 Carbon Dioxide 27 BUN 20 H Creatinine 1.14 Calcium 9.6 Liver Function 04/30/23 Range/Units 20:04 Total Bilirubin 1.0 (0.0-1.0) mg/dL Direct Bilirubin 0.4 (0.0-0.5) mg/dL AST 19 (5-37) U/L ALT 8 (0-40) U/L Alkaline Phosphatase 120 H (39-117) U/L Albumin 3.9 (3.5-5.0) g/dL Urine 04/30/23 Range/Units 20:04 Urine Color Dark Yellow Urine Appearance Turbid Urine pH 5.0 (5.0-9.0) Ur Specific [place] >= 1.030 H (1.005-1.025) Urine Protein 100 (2+) H (Neg-Trace) mg/dL Urine Glucose (UA) Negative (Negative) mg/dL All other labs normal. Assessment and Plan (1) Nephrolithiasis: Status: Acute Plan Risks, benefits and alternatives to therapy were discussed. These include but are not limited to infection, bleeding, damage to local organs and tissues, need for further interventions. Anesthetic risks regarding cardiac arrhythmia, blood clots, and potential mortality were discussed. The patient understands the typical recovery time and the outpatient nature of the procedure. After consideration of these risks the patient gives full informed consent and they wish to move ahead with the procedure. Cystoscopy, left retrograde, left stent placement with possible ureteroscopy and laser lithotripsy Procedures Date of Service Date of Service: 05/01/23
[2023-05-01] MEDS: levoFLOXacin/D5W 500 MG/100 ML PIGGYBACK 100 MG IV (09:39)
--- NOTE | 2023-05-01 10:04 | PHA.MEDREC ---
Pharmacy Consult ? Medication Reconciliation Pharmacy has completed the medication reconciliation. Spoke to patient at bedside who had list
--- NOTE | 2023-05-01 10:44 | PC.NURSE ---
assumed care of pt at 0700. pt a&o x4, pleasant, calm, and cooperative. pt denies pain since given pain medication last night. pt medicated per mar with ABX. report given to PERLITA Iqbal in [facility]. pt to go to surgery within next 10 min. belongings at bedside and patient belongings list completed. call leary within reach. rr even/unlabored. plan of care ongoing.
--- NOTE | 2023-05-01 10:51 | PC.NURSE ---
pt to [facility].
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
--- NOTE | 2023-05-01 12:06 | MHC.SHP ---
Pre-Procedural Eval Section A - 24 Hr Update-Section A only Date of Service: 05/01/23 The patient is an INPATIENT: No The patient has been examined within 24 hours of the surgical procedure. The History & Physical has been completed within 30 days and I have reviewed it.: Yes Section B - Complete if H&P > 30 days Chief Complaint: Left ureteral stone, left flank pain Relevant Social History: None Allergies: Allergies Allergy/AdvReac Type Severity Reaction Status Date / Time No Known Allergies Allergy Verified 04/30/23 19:31 Plan Diagnosis/Plan: Unchanged I have reviewed the history and physical and performed a pertinent physical examination on my patient. No changes have occurred unless specified. Plan for Cystoscopy, left retrograde, left ureteral stent. Risks discussed included but not limited to, possible need to repeat procedure if stone is not completely fragmented, Irritative voiding symptoms, bladder spasms, urgency, blood in urine. Time Spent With Patient Time: Total time managing care of this patient today ____ minutes.
--- NOTE | 2023-05-01 13:08 | P.OP_ITS ---
Operative Note Operative Note Date of Service: 05/01/23 Narrative: PreOperative Diagnosis:?? Left proximal ureteral stone, left hydronephrosis, left flank pain Post Operative Diagnosis:?? ?Left proximal ureteral stone, left hydronephrosis, left flank pain Procedure: - cystoscopy, left retrograde - left stent insertion, size 6 by multi length 22 cm - 32 cm Surgeon:?Dr Rodrigo Carrion Anesthesia:? General Indications for procedure: Presents to ED with left flank pain. CT imaging 05/01/23--: CT KUB 6 mm proximal ureteral stone with hydronephrosis. Bilateral renal stones. Procedure: After informed consent was verified the patient was brought to the operating placed on the OR table in supine position.? General Anesthesia was administered per protocol.? The patient was placed in lithotomy position, prepped and draped in the usual sterile fashion.? Safety pause time-out and side of surgery confirmed.? Antibiotics confirmed. A 22 Slovenian cystoscope was inserted transurethrally, the bulbous urethra was within normal limits. The prostatic urethra was nonobstructive. The bladder was visualized.? Both ureteric orifices were in normal position. The calcification was noted in the proximal ureter on fluoroscopy. The? left ureteric orifice was cannulated? and a retrograde examination was performed, contrast was able to pass the stone into the kidney which was hydronephrotic. A hydrophilic guidewire was placed up to the level of the renal pelvis under fluoroscopy. A 6 fr by multi length cm ureteral stent was passed over the guide wire under fluoroscopic guidance. The guide wire was removed. The bladder was emptied.? The rigid cystoscope was removed. ? The patient tolerated the procedure well and was brought to the recovery room in stable condition. Complications: None Drains: Ureteral stent as dictated above
[2023-05-01] MEDS: Phenazopyridine HCL 200 MG TABLET PO (13:18)
== END 2023-05-01 14:34 | disposition home or self-care (01) ==
LOC: HO.ED 05-01 10:52 → HO.SSS 05-01 11:03
PROVIDERS: Physician Assistant Medical; Urology; Emergency Provider Emergency Medicine; PCP Internal Medicine; Visit Provider Urology
DX: N13.2 Hydronephrosis with renal and ureteral calculous obstruction (principal); Z87.442 Personal history of urinary calculi; B19.10 Unspecified viral hepatitis B without hepatic coma; G47.33 Obstructive sleep apnea (adult) (pediatric)
CPT/HCPCS: 52320; 52332; 36415; 74176; 80053; 81001; 82248; 83690; 83735; 85025; 96361; 96374; 96375; 99285; C1769; C2617; J0690; J1170; J1885; J1956; J2371; J2405; J2704; J3010; Q9967

== ENCOUNTER → 2023-04-30 20:02 | Outpatient (BNV) | payer MEDICARE, SELFPAY | PROVIDERS: Emergency Provider Emergency Medicine; Visit Provider Urology | DX: N20.0 Calculus of kidney (principal) | CPT/HCPCS: 52332; 74420; 99284 ==

== ENCOUNTER → 2023-05-03 23:59 | Outpatient (BNV) | payer MEDICARE, SELFPAY | PROVIDERS: PCP Internal Medicine; Visit Provider Internal Medicine | DX: B18.9 Chronic viral hepatitis, unspecified (principal); F41.9 Anxiety disorder, unspecified; K21.9 Gastro-esophageal reflux disease without esophagitis | CPT/HCPCS: G0180 ==

== ENCOUNTER 2023-05-04 14:45 | Outpatient (AMB) | payer MEDICARE, SELFPAY ==
--- NOTE | 2023-05-04 15:39 | A.OFFVIS_ITS ---
Intake Intake Visit Reasons: Discuss planned procedure Intake Note: Patient presents today to Discuss Planned Procedure: Meds- Vitamin B6 Allergies to Antibiotic- No Known Allergies Blood Thinner- None Highway Engineering Teacher Required: No Accompanied by: Self / Same As Patient Allergies No Known Allergies Allergy (Verified 05/04/23 15:42) Medication List - Last Reconciled 05/04/23 by Rodrigo Carrion MD acetaminophen 1,000 mg PO TID PRN allopurinol 100 mg PO Q48H entecavir 1 tab PO DAILY omeprazole 20 mg PO DAILY@0630 pyridoxine (vitamin B6) 100 mg PO DAILY HPI HPI Comments History of Present Illness Details Gene is a 77-year-old male who has been followed by [facility] urology in the past he has been treated by Dr. Soliz for kidney stones. He is on vitamin B6 100 mg daily. He presented to the ED on 04/29/2023 with left flank pain. CT imaging noted bilateral kidney stones left greater than right with a left sided 6 mm proximal obstructing ureteral stone CTAP--There is an obstructing calculus within the proximal left ureter at the level of the superior endplate of the L3 vertebral body measuring 6 x 4 mm. The calculus measures 1047 Hounsfield units. There is left sided hydroureteronephrosis. He is status post left ureteral stent placed on 04/30/23. I have discussed with him further treatment options to include shockwave lithotripsy versus ureteroscopy laser lithotripsy. I have reviewed the CT scan films and the fluoroscopy surgical films with the patient. Discussed plan to check a KUB x-ray and will schedule a telehealth follow-up to review KUB x-ray results and clarify surgical treatment plan. COUNTS INCLUDE 234 BEDS AT THE [facility] Medical History Cirrhosis GERD (gastroesophageal reflux disease) Kidney stone Hepatitis B COVID-19 vaccine series completed Sleep apnea BPH (benign prostatic hyperplasia) Obesity Arthritis of left hip Anxiety Hip pain Surgical History History of total left hip arthroplasty History of lithotripsy H/O colonoscopy History of back surgery History of appendectomy History of tonsillectomy Family History Father No problems noted. Mother No problems noted. Daughter No problems noted. Social History Housing: House Are you a primary day care home provider to a significant other at home: No Do you presently have visiting nurse or other home services: No Alcohol intake: never Patient Tobacco Use Status: Never used Tobacco e-Cigarette/Vaping Use: Never Used Second Hand Smoke Exposure: No service: No 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al status: retired 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 Cognitive needs: No Hearing needs: No Vision needs: Yes Review of Systems Const All systems reviewed & are unremarkable except as noted in HPI and below Reports no additional complaints Eyes Reports no additional complaints ENT Reports no additional complaints Card Denies dyspnea Resp Denies cough and Denies dyspnea GI Reports no additional complaints Musc Reports no additional complaints Skin/Breast Denies rash and Denies unusual bruising Neuro Reports no additional complaints Psych Reports no additional complaints Endo Reports no additional complaints Jez/Lymph Reports no additional complaints Aller/Immun Reports no additional complaints Results Reviewed Results Reviewed: Date of Service: 04/30/23 EXAMINATION: CT ABDOMEN AND PELVIS WITHOUT CONTRAST CLINICAL INFORMATION: Left flank pain. COMPARISON: CT abdomen pelvis dated 01/02/2021. TECHNIQUE: Multidetector volumetric imaging was performed from the superior aspect of the liver through the pubic symphysis. Sagittal and coronal reformatted images were obtained on the technologist's workstation. This CT examination was performed using dose optimization techniques as appropriate, variously including the following: *Automated exposure control *Adjustment of mA and/or kV according to patient size (this includes techniques or standardized protocols for targeted exams where dose is matched to indication/reason for exam; i.e. extremities or head) *Use of iterative reconstruction technique DLP: 864 mGy-cm FINDINGS: LUNG BASES: The lung bases are clear. Heart size is normal. There are coronary artery calcifications. LIVER, GALLBLADDER, AND BILIARY TREE: The liver is normal in size, shape, and attenuation. There are 2 stable low-attenuation lesions within the liver measuring 1.5 and 1.7 cm, respectively. Both likely represent simple cysts. No biliary ductal dilatation is present. There is a 1.8 cm gallstone. There is no gallbladder wall thickening or obvious pericholecystic inflammatory changes. PANCREAS: Unremarkable. SPLEEN: Unremarkable. ADRENAL GLANDS: Unremarkable. KIDNEYS AND URETERS: Right kidney and ureter: The right kidney is normal in size. There are multiple right renal calculi the majority of them are within the lower pole. The largest right renal calculus measures 6 mm. It measures approximately 318 Hounsfield units. There is no right perinephric stranding. No right hydronephrosis. No right ureteral calculus. Left kidney and ureter: The left kidney is normal in size. Left kidney contains multiple renal calculi. The largest is located within the interpolar region and measures 9 mm in length. This calculus measures 305 Hounsfield units. There is mild left hydronephrosis. There is moderate left perinephric stranding. There is an obstructing calculus within the proximal left ureter at the level of the superior endplate of the L3 vertebral body measuring 6 mm in length. The calculus measures 1047 Hounsfield units. There is left periureteric stranding. The distal left the ureter distal to this obstructing calculus is normal in appearance. BLADDER: The urinary bladder is minimally distended. There are no urinary bladder calculi. GASTROINTESTINAL TRACT: The small bowel and colon are normal in caliber. The appendix is not definitively identified, however, there are no inflammatory changes within the expected location of the appendix to suggest an acute inflammatory process. There is sigmoid colon diverticulosis without evidence of acute diverticulitis. ABDOMINAL WALL: No significant hernia is appreciated. LYMPH NODES: No retroperitoneal or pelvic lymphadenopathy. VASCULAR: No abdominal aortic aneurysm. Moderate vascular calcifications. PELVIC VISCERA: Unremarkable. OSSEOUS STRUCTURES: There is degenerative disease of the visualized spine. IMPRESSION: - There is an obstructing calculus within the proximal left ureter at the level of the superior endplate of the L3 vertebral body measuring 6 x 4 mm. The calculus measures 1047 Hounsfield units. There is left sided hydroureteronephrosis. There is left perinephric stranding. - There are bilateral nonobstructive renal calculi as described. - Stable hepatic cysts as described. - Cholelithiasis without evidence of acute cholecystitis. - Diverticulosis without evidence of acute diverticulitis. Assessment & Plan Assessment & Plan (1) Hydronephrosis with renal and ureteral calculous obstruction: Code(s): N13.2 - Hydronephrosis with renal and ureteral calculous obstruction (2) Nephrolithiasis: Comment: Mixed calcium oxalate stones December 2020 Code(s): N20.0 - Calculus of kidney (3) Ureteral stent present: Code(s): Z96.0 - Presence of urogenital implants (4) Ureteral stone: Code(s): N20.1 - Calculus of ureter Plan Discussed plan to check a KUB x-ray and will schedule a telehealth follow-up to review KUB x-ray results and clarify surgical treatment plan. Orders: Orders XR KUB Today N20.0 - Calculus of kidney, N20.1 - Calculus of ureter, Z96.0 - Presence of urogenital implants Patient Instructions: The patient had an opportunity to ask questions regarding treatment plan. All questions were answered. Imaging, Laboratory studies and physical exam results were discussed and reviewed in detail. No major barriers to understanding were identified. The patient expressed understanding and agreement with the above treatment plan. The patient is aware they should contact our office by phone for worsening of their current condition or the appearance of new symptoms. Compliance is encouraged with any medications and followup testing that is ordered. It is a privilege to be allowed the opportunity to participate in the urologic care of your patient. If you have any questions or concerns regarding treatment for the above conditions please do not hesitate to contact me. The office telephone contact is [phone]. This note is constructed in part using voice recognition software. While every effort has been made to ensure accuracy slitter cut off operator errors may have been included. Yours sincerely, Rodrigo Carrion MD Coding Level of Care Code Est Pt Level 4 (93199) Diagnoses Hydronephrosis with renal and ureteral calculous obstruction N13.2 Nephrolithiasis N20.0 Ureteral stent present Z96.0 Ureteral stone N20.1
== END 2023-05-04 15:58 | disposition home or self-care (01) ==
PROVIDERS: PCP Internal Medicine; Visit Provider Urology
DX: N13.2 Hydronephrosis with renal and ureteral calculous obstruction (principal); Z96.0 Presence of urogenital implants
CPT/HCPCS: 99213

== ENCOUNTER → 2023-05-04 14:45 | Outpatient (BNVA) | payer MEDICARE, SELFPAY | PROVIDERS: PCP Internal Medicine; Visit Provider Urology | DX: N13.2 Hydronephrosis with renal and ureteral calculous obstruction (principal); N20.0 Calculus of kidney; N20.1 Calculus of ureter; Z96.0 Presence of urogenital implants | CPT/HCPCS: 99212 ==

== ENCOUNTER 2023-05-08 08:07 | Outpatient (REF) | payer MEDICARE, SELFPAY ==
--- NOTE | ~2023-05-08 | XR_ITS ---
EXAMINATION: XR ABDOMEN KUB CLINICAL INDICATION: Calculus of kidney. Status post left ureteral stent. COMPARISON: Fluoroscopic guided images of 05/01/2023. CT abdomen and pelvis of 04/30/2023. TECHNIQUE: 2 AP supine views of the abdomen. FINDINGS: Nonobstructive bowel gas pattern. Left total hip arthroplasty partially imaged. Left ureteral stent with proximal portion overlying left kidney and distal portion overlying [id number] pelvis. An 8 mm calculus is present just medial to the midportion of the stent at the level of the L3-L4 disc space. Redemonstration of 6 mm calculus overlying right kidney with smaller adjacent calculi. Small bilateral renal calculi are difficult to evaluate due to overlying bowel. XR/XR KUB IMPRESSION: 1. Left ureteral stent with proximal portion overlying left kidney and distal portion overlying [id number] pelvis. An 8 mm calculus is present just medial to the midportion of the stent at the level of the L3-L4 disc space. This may corresponds to the obstructing calculus identified within the left ureter on prior CT scan. 2. Redemonstration of 6 mm calculus overlying right kidney with smaller adjacent calculi. Small bilateral renal calculi are difficult to evaluate due to overlying bowel.
== END 2023-05-08 08:08 | disposition home or self-care (01) ==
LOC: HO.XRAY 08:07
PROVIDERS: PCP Internal Medicine; Visit Provider Urology
DX: N20.0 Calculus of kidney (principal); N20.1 Calculus of ureter; Z96.0 Presence of urogenital implants
CPT/HCPCS: 74018

== ENCOUNTER 2023-05-14 08:13 | Outpatient (AMB) | payer MEDICARE, SELFPAY ==
--- NOTE | 2023-05-14 08:14 | A.OFFVIS_ITS ---
Intake Intake Visit Reasons: 2w/KUB Intake Note: Patient presents today for a telehealth follow-up on KUB Meds- Vitamin B6 Allergies to Antibiotic- None Blood Thinner- None Fiberglass Luggage Molder Required: No Allergies No Known Allergies Allergy (Verified 05/14/23 08:16) Medication List - Last Reconciled 05/14/23 by Rodrigo Carrion MD acetaminophen 1,000 mg PO TID PRN allopurinol 100 mg PO Q48H entecavir 1 tab PO DAILY omeprazole 20 mg PO DAILY@0630 pyridoxine (vitamin B6) 100 mg PO DAILY HPI HPI Comments History of Present Illness Details 05/14/2023--Gene presents for telehealt h visit, video attempted to discuss KUB results. The patient had KUB done on 05/08/2023. I have reviewed the results with the patient --the stent is in good position. The ureteral stone is in the mid to proximal ureter. I discussed possible left ESWL if the stone was noted to be migrated up into the kidney. Today discussion involved review of imaging and plan to schedule ureteroscopy with laser lithotripsy stent exchange on the left. Also discussed is that he has bilateral kidney stones which will need to be addressed regarding treatment plan in the future. 05/04/23 Gene is a 77-year-old male who has been followed by [facility] urology in the past he has been treated by Dr. Soliz for kidney stones. He is on vitamin B6 100 mg daily. He presented to the ED on 04/29/2023 with left flank pain. CT imaging noted bilateral kidney stones left greater than right with a left sided 6 mm proximal obstructing ureteral stone CTAP--There is an obstructing calculus within the proximal left ureter at the level of the superior endplate of the L3 vertebral body measuring 6 x 4 mm. The calculus measures 1047 Hounsfield units. There is left sided hydroureteronephrosis. He is status post left ureteral stent placed on 04/30/23. I have discussed with him further treatment options to include shockwave lithotripsy versus ureteroscopy laser lithotripsy. I have reviewed the CT scan films and the fluoroscopy surgical films with the patient. Discussed plan to check a KUB x-ray and will schedule a telehealth follow-up to review KUB x-ray results and clarify surgical treatment plan. 05/14/2023--PLAN: Schedule cystoscopy left ureteroscopy laser lithotripsy stent exchange. [facility] Medical History Cirrhosis GERD (gastroesophageal reflux disease) Kidney stone Hepatitis B COVID-19 vaccine series completed Sleep apnea BPH (benign prostatic hyperplasia) Obesity Arthritis of left hip Anxiety Hip pain Surgical History History of total left hip arthroplasty History of lithotripsy H/O colonoscopy History of back surgery History of appendectomy History of tonsillectomy Family History Father No problems noted. Mother No problems noted. Daughter No problems noted. Social History Housing: House Are you a primary care management coordinator to a significant other at home: No Do you presently have visiting nurse or other home services: No Alcohol intake: never Patient Tobacco Use Status: Never used Tobacco e-Cigarette/Vaping Use: Never Used Second Hand Smoke Exposure: No service: No 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al status: retired 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 Cognitive needs: No Hearing needs: No Vision needs: Yes Review of Systems Const All systems reviewed & are unremarkable except as noted in HPI and below Reports no additional complaints Eyes Reports no additional complaints ENT Reports no additional complaints Card Denies dyspnea Resp Denies cough and Denies dyspnea GI Reports no additional complaints Musc Reports no additional complaints Skin/Breast Denies rash and Denies unusual bruising Neuro Reports no additional complaints Psych Reports no additional complaints Endo Reports no additional complaints Ejz/Lymph Reports no additional complaints Aller/Immun Reports no additional complaints Assessment & Plan Assessment & Plan (1) Hydronephrosis with renal and ureteral calculous obstruction: Code(s): N13.2 - Hydronephrosis with renal and ureteral calculous obstruction (2) Nephrolithiasis: Comment: Mixed calcium oxalate stones December 2020 Code(s): N20.0 - Calculus of kidney (3) Ureteral stent present: Code(s): Z96.0 - Presence of urogenital implants (4) Ureteral stone: Code(s): N20.1 - Calculus of ureter Plan Schedule cystoscopy left ureteroscopy laser lithotripsy stent exchange. Patient Instructions: The patient had an opportunity to ask questions regarding treatment plan. All questions were answered. Imaging, Laboratory studies and physical exam results were discussed and reviewed in detail. No major barriers to understanding were identified. The patient expressed understanding and agreement with the above treatment plan. The patient is aware they should contact our office by phone for worsening of their current condition or the appearance of new symptoms. Compliance is e ncouraged with any medications and followup testing that is ordered. It is a privilege to be allowed the opportunity to participate in the urologic care of your patient. If you have any questions or concerns regarding treatment for the above conditions please do not hesitate to contact me. The office telephone contact is [phone]. This note is constructed in part using voice recognition software. While every effort has been made to ensure accuracy church musician errors may have been included. Yours sincerely, Rodrigo Carrion MD Telehealth Telehealth Location of provider rendering services: practice address Location of patient: address on file Patient Identification confirmed using: Name, : Yes Telehealth method: voice only Patient verbally consented to treatment: Yes Patient verbally consented to billing insurance company: Yes Patient informed of any privacy concerns related to visit: Yes Minutes spent on Phone/Video with Pt.: 24 Coding Level of Care Code Tele Est Pt Level 4 (18014) Diagnoses Hydronephrosis with renal and ureteral calculous obstruction N13.2 Nephrolithiasis N20.0 Ureteral stent present Z96.0 Ureteral stone N20.1
== END 2023-05-14 08:59 | disposition home or self-care (01) ==
LOC: HO.HUSH 08:13
PROVIDERS: PCP Internal Medicine; Visit Provider Urology
DX: N13.2 Hydronephrosis with renal and ureteral calculous obstruction (principal); Z96.0 Presence of urogenital implants
CPT/HCPCS: 99443

== ENCOUNTER → 2023-05-14 08:13 | Outpatient (BNVA) | payer MEDICARE, SELFPAY | PROVIDERS: PCP Internal Medicine; Visit Provider Urology ==

== ENCOUNTER 2023-05-22 09:16 | Day surgery (SDC) | payer MEDICARE, SELFPAY ==
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
--- NOTE | ~2023-05-22 | FL_ITS ---
EXAMINATION: XR FLUOROSCOPY WITH IMAGES CLINICAL INFORMATION: Left-sided stone COMPARISON: None available. TECHNIQUE: Fluoroscopy Supervised By: Dr. Carrion. Fluoroscopy Time: 19.1. seconds Cumulative Dose: 10.1 mGy. Images: 1. FINDINGS: Fluoroscopic image obtained demonstrates ureteral stent overlying the region of the left kidney. FL/FL guidance in OR IMPRESSION: Fluoroscopic imaging guidance for a procedure. For consultation regarding procedure and findings please refer to procedural report.
[2023-05-22 09:54] VITALS: BP 147/92; PULSE 88; RESP 16; TEMP 36.9; O2SAT 95; BMI 34.6
[2023-05-22] MEDS: Lactated Ringers 1,000 ML 100 ML IVCONT (10:07)
--- NOTE | 2023-05-22 10:19 | MHC.SHP ---
Pre-Procedural Eval Section A - 24 Hr Update-Section A only Date of Service: 05/22/23 The patient is an INPATIENT: No The patient has been examined within 24 hours of the surgical procedure. The History & Physical has been completed within 30 days and I have reviewed it.: Yes Section B - Complete if H&P > 30 days Chief Complaint: Calculus of ureter Allergies: Allergies Allergy/AdvReac Type Severity Reaction Status Date / Time No Known Allergies Allergy Verified 05/22/23 09:35 Plan Diagnosis/Plan: Unchanged I have reviewed the history and physical and performed a pertinent physical examination on my patient. No changes have occurred unless specified. Cystoscopy left ureteroscopy laser lithotripsy stent exchange Time Spent With Patient Time: Total time managing care of this patient today ____ minutes.
[2023-05-22 11:54] VITALS: BP 127/78; PULSE 68; RESP 16; TEMP 36.1; O2SAT 98
[2023-05-22 11:55] VITALS: BP 128/82; PULSE 64; RESP 16; O2SAT 98
[2023-05-22 12:00] VITALS: BP 131/69; PULSE 64; RESP 16; O2SAT 98
[2023-05-22 12:05] VITALS: BP 125/80; PULSE 83; RESP 16; O2SAT 98
[2023-05-22 12:20] VITALS: BP 153/74; PULSE 64; RESP 16; TEMP 36.1; O2SAT 96
--- NOTE | 2023-05-22 12:42 | P.OP_ITS ---
Operative Note Operative Note Date of Service: 05/22/23 Narrative: PreOperative Diagnosis:?? Left ureteral stone, left hydronephrosis status post left ureteral stent Post Operative Diagnosis:?? Left ureteral stone, left hydronephrosis status po st left ureteral stent Procedure: Cystoscopy, Left ureteroscopy laser lithotripsy stent exchange, size 7 [place] by 28 cm Surgeon:?Dr Rodrigo Carrion Anesthesia:? General Indications for procedure: Here for stone fragmentation. Procedure: After informed consent was verified the patient was brought to the operating placed on the OR table in supine position.? General Anesthesia was administered per protocol.? The patient was placed in lithotomy position, prepped and draped in the usual sterile fashion.? Safety pause time-out and side of surgery confirmed.? Antibiotics confirmed. A 22 [place] cystoscope was inserted transurethrally, the bulbous urethra was within normal limits. The prostatic urethra bilobar enlargement. The bladder was visualized.? Both ureteric orifices were in normal position. The left ureteral stent was curled in the bladder. The? distal end of the ureteral stent was grasped with the flexible grasping forceps. The stent was pulled retrograde through the urethra. A guidewire was passed through the stent. The cystoscope was removed, leaving the guidewire in place. The guidewire was used as the safety and was attached to the draping. The semi rigid ureteroscope was passed transurethrally to the level of the stone in the left ureter. Laser lithotripsy of the stone was done using the 365 fiber with a combination of dusting settings 0.5 J by 20 hertz and 0.8 joules by 6 hertz There was good fragmentation of the stone. The 0 degree basket was used to remove the stone fragments, which were sent for analysis. The ureteroscope was removed. The cystoscope was passed over the safety guidewire. A? 7 [place] by 28 cm stent was placed into the ureter and renal pelvis under a combination of fluoroscopy and direct visualization. The bladder was emptied.? The rigid cystoscope was removed. ? The patient tolerated the procedure well and was brought to the recovery room in stable condition. Complications: None Drains: Ureteral stent as dictated above
[2023-06-01 21:18] LABS: Stone Source LEFT URETERAL STONE
== END 2023-05-22 13:53 | disposition home or self-care (01) ==
PROVIDERS: PCP Internal Medicine; Visit Provider Urology
PROC: (CPT 52356; principal; 2023-05-22 11:10)
DX: N13.2 Hydronephrosis with renal and ureteral calculous obstruction (principal); Z96.0 Presence of urogenital implants; Z45.9 Encounter for adjustment and management of unspecified implanted device; Z87.442 Personal history of urinary calculi; N40.0 Benign prostatic hyperplasia without lower urinary tract symptoms; K74.60 Unspecified cirrhosis of liver; B19.10 Unspecified viral hepatitis B without hepatic coma; G47.33 Obstructive sleep apnea (adult) (pediatric); E66.9 Obesity, unspecified; K21.9 Gastro-esophageal reflux disease without esophagitis; Z79.899 Other long term (current) drug therapy; Z66 Do not resuscitate; Z98.890 Other specified postprocedural states
CPT/HCPCS: 52356; 82365; 88300; C1769; C2617; J0690; J1100; J2250; J2371; J2405; J2704; J3010; Q9967

== ENCOUNTER → 2023-05-22 09:16 | Outpatient (BNV) | payer MEDICARE, SELFPAY | PROVIDERS: PCP Internal Medicine; Visit Provider Urology | DX: N20.1 Calculus of ureter (principal) | CPT/HCPCS: 52356; 74420 ==

== ENCOUNTER 2023-05-30 10:28 | Day surgery (SDC) | payer MEDICARE, SELFPAY ==
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
[2023-05-30] VITALS (7 sets, daily range): BP systolic 129–189; BP diastolic 68–89; PULSE 68–77; RESP 16–20; TEMP 36.2–36.6; O2SAT 96–97; BMI 33.9
--- NOTE | ~2023-05-30 | XR_ITS ---
EXAMINATION: XR ABDOMEN KUB CLINICAL INDICATION: Right kidney stone COMPARISON: Abdominal KUB May 08, 2023 TECHNIQUE: Supine KUB of the abdomen was obtained. Overlying stool limits sensitivity for small renal calculi. FINDINGS: Left-sided ureteral stent in expected orientation. 3 mm calcific density adjacent to the mid left ureteral stent may represent a ureteral stone. Cluster of right-sided renal calculi again appreciated. No definitive calcifications project over the expected course of the right ureter. Pelvic calcifications are likely vascular in nature. Nonobstructing bowel gas pattern. Prominent gallstone projects over the right upper abdomen. No acute osseous abnormality. Partially visualized left hip prosthesis. XR/XR KUB IMPRESSION: Left-sided ureteral stent in expected orientation. 3 mm calcific density adjacent to the mid left ureteral stent may represent a ureteral stone.
[2023-05-30] MEDS: Acetaminophen 1,000 MG/100 ML PIGGYBACK 400 MG IV (11:00)
[2023-05-30] MEDS: Lactated Ringers 1,000 ML 100 ML IVCONT (11:10)
--- NOTE | 2023-05-30 12:40 | MHC.SHP ---
Pre-Procedural Eval Section A - 24 Hr Update-Section A only Date of Service: 05/30/23 The patient is an INPATIENT: No The patient has been examined within 24 hours of the surgical procedure. The History & Physical has been completed within 30 days and I have reviewed it.: Yes Section B - Complete if H&P > 30 days Chief Complaint: Nephrolithiasis Details of Present Illness: 77 year old with bilateral kidney stones, s/p left ureteroscopy laser lithotripsy left ureteral stone, discussed plan for right ESWL and removal of left ureteral stent Allergies: Allergies Allergy/AdvReac Type Severity Reaction Status Date / Time No Known Allergies Allergy Verified 05/22/23 09:35 Plan Diagnosis/Plan: Unchanged I have reviewed the history and physical and performed a pertinent physical examination on my patient. No changes have occurred unless specified. Right ESWL. cysto left ureteral stent removal. Discussed risks to include but not limited to, blood in the urine, bruising to the skin, kidney hematoma, possible need for another procedure if a stone fragment obstructs the ureter while passing, possible need to repeat procedure if stone is not completely fragmented. Time Spent With Patient Time: Total time managing care of this patient today ____ minutes.
--- NOTE | 2023-05-30 14:06 | W.PM.OPN ---
Operative Note Operative Note Date of Service: 05/30/23 Narrative: PreOperative Diagnosis:? ? Right Renal stones, left ureteral stent present Post Operative Diagnosis:?Right Renal stones, left ureteral stent present Procedure:?Right? ESWL Cystoscopy Left ureteral stent removal Disposable flexible ureteroscope utilized Surgeon:?Dr Rodrigo Carrion Anesthesia:? General Indications for procedure: The patient understands there is a risk of bruising or hematoma to the kidney, infection, and stone migration following the procedure and subsequent intervention may be required.? - Imaging Cluster stones right lower pole kidney measuring 9 x 6 mm stone Procedure: After informed consent was verified the patient was brought to the operating room and placed in a supine position.? Anesthesia was performed per protocol. Safety pause time-out was performed. The genitalia was prepped and draped in the usual manner. 2% lidocaine jelly was passed transurethrally. Using the disposable flexible cystoscope, the scope was passed transurethrally into the bladder. The bulbous urethra was within normal limits. The left ureteral stent was visualized. The disposable grasping forceps was passed through the scope the stent was grasped and the scope and stent was removed. The patient was positioned on the procedure table to proceed with ESWL. Imaging was displayed in the room and laterality confirmed. ESWL was performed.?The right renal stone was visualized on both fluoroscopy and ultrasound.? Shockwave lithotripsy was performed, with a maximum rate of 120 hertz. After the first 300 shocks a pause for 3 minutes was completed.? A total of 2500 shocks to a maximum of power of 18 with a maximum rate of 120 hertz.? Some fragmentation of the stone was appreciated. The patient tolerated the procedure well and was transferred to the recovery area upon completion. Complications: None
== END 2023-05-30 15:30 | disposition home or self-care (01) ==
PROVIDERS: PCP Internal Medicine; Visit Provider Urology
PROC: (CPT 50590; principal; 2023-05-30 13:20)
DX: N20.0 Calculus of kidney (principal); Z96.0 Presence of urogenital implants
CPT/HCPCS: 50590; 52310; 74018; J0131; J0690; J1940; J2704; J3010

== ENCOUNTER → 2023-05-30 10:28 | Outpatient (BNV) | payer MEDICARE, SELFPAY | PROVIDERS: PCP Internal Medicine; Visit Provider Urology | DX: N20.1 Calculus of ureter (principal); Z96.0 Presence of urogenital implants | CPT/HCPCS: 50590; 52310 ==

== ENCOUNTER 2023-07-09 15:25 | Outpatient (AMB) | payer MEDICARE, SELFPAY ==
--- NOTE | 2023-07-09 15:49 | A.OFFVIS_ITS ---
Intake Visit Reasons: Ureteroscopy follow up Intake Note: Patient presents today for Ureteroscopy follow-up Meds- Vitamin B6 Allergies to Antibiotic- None Blood Thinner- None Unable to void Package Dyer Required: No Accompanied by: Self / Same As Patient Allergies No Known Allergies Allergy (Verified 07/09/23 15:49) Medication List - Last Reconciled 07/09/23 by Rodrigo Carrion MD acetaminophen 1,000 mg PO TID PRN allopurinol 100 mg PO Q48H clonazepam 0.5 mg PO BID PRN entecavir 1 tab PO DAILY omeprazole 20 mg PO DAILY@0630 oxycodone 5 mg PO .q6h-8h PRN phenazopyridine (Pyridium) 200 mg PO BID PRN pyridoxine (vitamin B6) 100 mg PO DAILY HPI Comments Details: 07/09/2023 Gene is followed for nephrolithiasis. He is status post ESWL and stent removal. He states he has been doing well. I have discussed metabolic workup including 24 hour urine collection. The patient is also concerned regarding erections. Has taken Viagra in the past with some improvement but lately is less satisfied with the results of the medication. I have discussed daily Cialis 5 mg daily we will continue the Viagra 100 mg on demand. 3-4 months telehealth follow-up. 30 minutes spent in review of records pertaining to this visit and including [id number] discussion with the patient and documentation of this visit. Review of chart: 05/14/2023--Gene presents for telehealth visit, video attempted to discuss KUB results. The patient had KUB done on 05/08/2023. I have reviewed the results with the patient --the stent is in good position. The ureteral stone is in the mid to proximal ureter. I discussed possible left ESWL if the stone was noted to be migrated up into the kidney. Today discussion involved review of imaging and plan to schedule ureteroscopy with laser lithotripsy stent exchange on the left. Also discussed is that he has bilateral kidney stones which will need to be addressed regarding treatment plan in the future. 05/04/23 Gene is a 77-year-old male who has been followed by [facility] urology in the past he has been treated by Dr. Soliz for kidney stones. He is on vitamin B6 100 mg daily. He presented to the ED on 04/29/2023 with left flank pain. CT imaging noted bilateral kidney stones left greater than right with a left sided 6 mm proximal obstructing ureteral stone. He is status post left ureteral stent placed on 04/30/23. I have discussed with him further treatment options to include shockwave lithotripsy versus ureteroscopy laser lithotripsy. I have reviewed the CT scan films and the fluoroscopy surgical films with the patient. Discussed plan to check a KUB x-ray and will schedule a telehealth follow-up to review KUB x-ray results and clarify surgical treatment plan. [facility] Medical History Cirrhosis GERD (gastroesophageal reflux disease) Kidney stone Hepatitis B COVID-19 vaccine series completed Sleep apnea BPH (benign prostatic hyperplasia) Obesity Arthritis of left hip Anxiety Hip pain Surgical History History of total left hip arthroplasty History of lithotripsy H/O colonoscopy History of back surgery History of appendectomy History of tonsillectomy Family History Father No problems noted. Mother No problems noted. Daughter No problems noted. Social History Housing: House Are you a primary respiratory care specialist to a significant other at home: No Do you presently have visiting nurse or other home services: No Alcohol intake: never Patient Tobacco Use Status: Never used Tobacco e-Cigarette/Vaping Use: Never Used Second Hand Smoke Exposure: No service: No 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al status: retired 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 Cognitive needs: No Hearing needs: No Vision needs: Yes Review of Systems Const All systems reviewed & are unremarkable except as noted in HPI and below Reports no additional complaints Eyes Reports no additional complaints ENT Reports no additional complaints Card Reports no additional complaints Resp Reports no additional complaints GI Reports no additional complaints Reports as per HPI Musc Reports no additional complaints Skin/Breast Reports system reviewed and no additional complaints, except as documented Neuro Reports no additional complaints Psych Reports no additional complaints Endo Reports no additional complaints Jez/Lymph Reports no additional complaints Aller/Immun Reports no additional complaints Results Reviewed Results Reviewed: Date of Service: 04/30/23 EXAMINATION: CT ABDOMEN AND PELVIS WITHOUT CONTRAST CLINICAL INFORMATION: Left flank pain. COMPARISON: CT abdomen pelvis dated 01/02/2021. TECHNIQUE: Multidetector volumetric imaging was performed from the superior aspect of the liver through the pubic symphysis. Sagittal and coronal reformatted images were obtained on the technologist's workstation. This CT examination was performed using dose optimization techniques as appropriate, variously including the following: *Automated exposure control *Adjustment of mA and/or kV according to patient size (this includes techniques or standardized protocols for targeted exams where dose is matched to indication/reason for exam; i.e. extremities or head) *Use of iterative reconstruction technique DLP: 864 mGy-cm FINDINGS: LUNG BASES: The lung bases are clear. Heart size is normal. There are coronary artery calcifications. LIVER, GALLBLADDER, AND BILIARY TREE: The liver is normal in size, shape, and attenuation. There are 2 stable low-attenuation lesions within the liver measuring 1.5 and 1.7 cm, respectively. Both likely represent simple cysts. No biliary ductal dilatation is present. There is a 1.8 cm gallstone. There is no gallbladder wall thickening or obvious pericholecystic inflammatory changes. PANCREAS: Unremarkable. SPLEEN: Unremarkable. ADRENAL GLANDS: Unremarkable. KIDNEYS AND URETERS: Right kidney and ureter: The right kidney is normal in size. There are multiple right renal calculi the majority of them are within the lower pole. The largest right renal calculus measures 6 mm. It measures approximately 318 Hounsfield units. There is no right perinephric stranding. No right hydronephrosis. No right ureteral calculus. Left kidney and ureter: The left kidney is normal in size. Left kidney contains multiple renal calculi. The largest is located within the interpolar region and measures 9 mm in length. This calculus measures 305 Hounsfield units. There is mild left hydronephrosis. There is moderate left perinephric stranding. There is an obstructing calculus within the proximal left ureter at the level of the superior endplate of the L3 vertebral body measuring 6 mm in length. The calculus measures 1047 Hounsfield units. There is left periureteric stranding. The distal left the ureter distal to this obstructing calculus is normal in appearance. BLADDER: The urinary bladder is minimally distended. There are no urinary bladder calculi. GASTROINTESTINAL TRACT: The small bowel and colon are normal in caliber. The appendix is not definitively identified, however, there are no inflammatory changes within the expected location of the appendix to suggest an acute inflammatory process. There is sigmoid colon diverticulosis without evidence of acute diverticulitis. ABDOMINAL WALL: No significant hernia is appreciated. LYMPH NODES: No retroperitoneal or pelvic lymphadenopathy. VASCULAR: No abdominal aortic aneurysm. Moderate vascular calcifications. PELVIC VISCERA: Unremarkable. OSSEOUS STRUCTURES: There is degenerative disease of the visualized spine. IMPRESSION: - There is an obstructing calculus within the proximal left ureter at the level of the superior endplate of the L3 vertebral body measuring 6 x 4 mm. The calculus measures 1047 Hounsfield units. There is left sided hydroureteronephrosis. There is left perinephric stranding. - There are bilateral nonobstructive renal calculi as described. - Stable hepatic cysts as described. - Cholelithiasis without evidence of acute cholecystitis. - Diverticulosis without evidence of acute diverticulitis. Assessment & Plan Assessment & Plan (1) Hydronephrosis with renal and ureteral calculous obstruction: Code(s): N13.2 - Hydronephrosis with renal and ureteral calculous obstruction Category: Medical (2) Nephrolithiasis: Comment: Mixed calcium oxalate stones December 2020 Code(s): N20.0 - Calculus of kidney Category: Medical (3) Erectile dysfunction: Code(s): N52.9 - Male erectile dysfunction, unspecified Category: Medical Plan Bilateral kidney stones Metabolic workup, 24 hour urine collection The patient has used Viagra 100 mg on demand for ED and has noticed less than optimal results Discussed daily Cialis 5 mg in addition to continuing with the Viagra 100 mg on demand. Follow-up in 3-4 months Patient Instructions: The patient had an opportunity to ask questions regarding treatment plan. The patient expressed understanding and agreement with the above treatment plan. The patient is aware they should contact our office by phone for worsening of their current condition or the appearance of new symptoms. Compliance is encouraged with any medications and followup testing that is ordered. It is a privilege to be allowed the opportunity to participate in the urologic care of your patient. If you have any questions or concerns regarding treatment for the above conditions please do not hesitate to contact me. The office telephone contact is [phone]. This note is constructed in part using voice recognition software. While every effort has been made to ensure accuracy rag cutting machine tender errors may have been included. Yours sincerely, Rodrigo Carrion MD Coding Level of Care Code Est Pt Level 4 (97680) Diagnoses Hydronephrosis with renal and ureteral calculous obstruction N13.2 Nephrolithiasis N20.0 Erectile dysfunction N52.9
== END 2023-07-09 16:40 | disposition home or self-care (01) ==
PROVIDERS: PCP Internal Medicine; Visit Provider Urology
DX: N13.2 Hydronephrosis with renal and ureteral calculous obstruction (principal); N52.9 Male erectile dysfunction, unspecified
CPT/HCPCS: 99024

== ENCOUNTER → 2023-07-09 15:25 | Outpatient (BNVA) | payer MEDICARE, SELFPAY | PROVIDERS: PCP Internal Medicine; Visit Provider Urology | DX: N13.2 Hydronephrosis with renal and ureteral calculous obstruction (principal); N52.9 Male erectile dysfunction, unspecified | CPT/HCPCS: 99212 ==

== ENCOUNTER 2023-08-02 16:18 | Outpatient (REF) | payer MEDICARE, SELFPAY ==
--- NOTE | ~2023-08-02 | US_ITS ---
EXAMINATION: US RETROPERITONEAL LIMITED (RENAL ONLY) CLINICAL INFORMATION: Calculus of kidney. COMPARISON: X-ray KUB 05/30/2023 and 05/08/2023. CT abdomen and pelvis 04/30/2023. Ultrasound abdomen complete 07/10/2022 and 01/10/2022. TECHNIQUE: Real-time imaging of the kidneys. No hydronephrosis. No renal calculi. Limited visualization. FINDINGS: RIGHT KIDNEY: 9.4 x 5.2 x 6.0 cm (SAG x AP x TRV). Multiple renal calculi measuring 4 mm lower pole, 7 mm lateral mid pole, and 4 mm lower pole. No hydronephrosis. Limited visualization. LEFT KIDNEY: 11.8 x 6.3 x 4.7 cm (SAG x AP x TRV). 3 mm lower pole and 3 mm mid pole calculi. Moderate hydronephrosis. Limited visualization. Renal cortical thickness is normal. US/US renal BI IMPRESSION: Bilateral renal calculi. Moderate left hydronephrosis.
== END 2023-08-02 16:19 | disposition home or self-care (01) ==
LOC: HO.US 16:18
PROVIDERS: PCP Internal Medicine; Visit Provider Urology
DX: N20.0 Calculus of kidney (principal)
CPT/HCPCS: 76775

== ENCOUNTER 2023-10-31 06:53 | Outpatient (REF) | payer MEDICARE, SELFPAY ==
[2023-10-31 08:09] LABS: Appearance Urine Clear; Color Urine Yellow; Glucose Urine UA Negative (Negative); Leukocyte Esterase Urine Negative (Negative); Nitrite Urine Negative (Negative); PH 5.5 (5.0-9.0); Specific Gravity - Urine 1.025 (1.005-1.025); Urine Blood Negative (Negative); Urine Ketones Trace mg/dL (Negative); Urine Protein Negative (Neg-Trace)
[2023-10-31 08:19] LABS: Bacteria Urine None Seen (None Seen); Hyaline Casts Urine 0-2 /LPF (0-2); RBC Urine 0-2 /HPF (0-2); Squamous Epithelial Cell Urine 0-2 /HPF (0-2); WBC Urine 0-5 /HPF (0-5)
== END 2023-10-31 06:54 | disposition home or self-care (01) ==
LOC: HO.LAB 06:53
PROVIDERS: PCP Internal Medicine; Visit Provider Urology
DX: N40.1 Benign prostatic hyperplasia with lower urinary tract symptoms (principal); R35.1 Nocturia; N20.1 Calculus of ureter; N20.0 Calculus of kidney
CPT/HCPCS: 81001; 87086

== ENCOUNTER 2023-11-07 15:26 | Outpatient (AMB) | payer MEDICARE, SELFPAY ==
--- NOTE | 2023-11-07 15:21 | A.OFFVIS_ITS ---
Intake Visit Reasons: 3m follow up(SET) Intake Note: Patient is present for 3M F/U Urology Medication:SILDENAFIL, ALLOPURINOL, TADALAFIL, VITAMIN B6 Antibiotic Allergy:NONE Blood Thinner:NONE Hand Reamer Required: No Allergies No Known Allergies Allergy (Verified 11/07/23 15:24) HPI Comments Details: 11/07/2023--reviewed renal ultrasound August 02, 2023 left hydronephrosis bilateral kidney stones. Will re-evaluate with CT KUB, 24 hour urine pending. Review of chart: 07/09/2023 Gene is followed for nephrolithiasis. He is status post ESWL and stent removal. He states he has been doing well. I have discussed metabolic workup including 24 hour urine collection. The patient is also concerned regarding erections. Has taken Viagra in the past with some improvement but lately is less satisfied with the results of the medication. I have discussed daily Cialis 5 mg daily we will continue the Viagra 100 mg on demand. 3-4 months telehealth follow-up. 30 minutes spent in review of records pertaining to this visit and including [id number] discussion with the patient and documentation of this visit. 05/14/2023--Gene presents for telehealth visit, video attempted to discuss KUB results. The patient had KUB done on 05/08/2023. I have reviewed the results with the patient --the stent is in good position. The ureteral stone is in the mid to proximal ureter. I discussed possible left ESWL if the stone was noted to be migrated up into the kidney. Today discussion involved review of imaging and plan to schedule ureteroscopy with laser lithotripsy stent exchange on the left. Also discussed is that he has bilateral kidney stones which will need to be addressed regarding treatment plan in the future. 05/04/23 Gene is a 77-year-old male who has been followed by [facility] urology in the past he has been treated by Dr. Soliz for kidney stones. He is on vitamin B6 100 mg daily. He presented to the ED on 04/29/2023 with left flank pain. CT imaging noted bilateral kidney stones left greater than right with a left sided 6 mm proximal obstructing ureteral stone. He is status post left ureteral stent placed on 04/30/23. I have discussed with him further treatment options to include shockwave lithotripsy versus ureteroscopy laser lithotripsy. I have reviewed the CT scan films and the fluoroscopy surgical films with the patient. Discussed plan to check a KUB x-ray and will schedule a telehealth follow-up to review KUB x-ray results and clarify surgical treatment plan. [facility] Medical History Cirrhosis GERD (gastroesophageal reflux disease) Kidney stone Hepatitis B COVID-19 vaccine series completed Sleep apnea BPH (benign prostatic hyperplasia) Obesity Arthritis of left hip Anxiety Hip pain Surgical History History of total left hip arthroplasty History of lithotripsy H/O colonoscopy History of back surgery History of appendectomy History of tonsillectomy Family History Father No problems noted. Mother No problems noted. Daughter No problems noted. Social History Housing: House Are you a primary rn coronary care unit to a significant other at home: No Do you presently have visiting nurse or other home services: No Alcohol intake: never Patient Tobacco Use Status: Never used Tobacco e-Cigarette/Vaping Use: Never Used Second Hand Smoke Exposure: No service: No 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al status: retired 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 Cognitive needs: No Hearing needs: No Vision needs: Yes Review of Systems Const All systems reviewed & are unremarkable except as noted in HPI and below Reports no additional complaints Eyes Reports no additional complaints ENT Reports no additional complaints Card Reports no additional complaints Resp Reports no additional complaints GI Reports no additional complaints Reports as per HPI Musc Reports no additional complaints Skin/Breast Reports system reviewed and no additional complaints, except as documented Neuro Reports no additional complaints Psych Reports no additional complaints Endo Reports no additional complaints Jez/Lymph Reports no additional complaints Aller/Immun Reports no additional complaints Telehealth Telehealth Telehealth Platform: [facility] Location of provider rendering services: practice address Location of patient: address on file Patient Identification confirmed using: Name, : Yes Telehealth method: video Patient verbally consented to treatment: Yes Patient verbally consented to billing insurance company: Yes Patient informed of any privacy concerns related to visit: Yes Results Reviewed Results Reviewed: Date of Service: 08/02/23 US RETROPERITONEAL LIMITED (RENAL ONLY) CLINICAL INFORMATION: Calculus of kidney. COMPARISON: X-ray KUB 05/30/2023 and 05/08/2023. CT abdomen and pelvis 04/30/2023. Ultrasound abdomen complete 07/10/2022 and 01/10/2022. TECHNIQUE: Real-time imaging of the kidneys. No hydronephrosis. No renal calculi. Limited visualization. FINDINGS: RIGHT KIDNEY: 9.4 x 5.2 x 6.0 cm (SAG x AP x TRV). Multiple renal calculi measuring 4 mm lower pole, 7 mm lateral mid pole, and 4 mm lower pole. No hydronephrosis. Limited visualization. LEFT KIDNEY: 11.8 x 6.3 x 4.7 cm (SAG x AP x TRV). 3 mm lower pole and 3 mm mid pole calculi. Moderate hydronephrosis. Limited visualization. Renal cortical thickness is normal. IMPRESSION: Bilateral renal calculi. Moderate left hydronephrosis. Date of Service: 04/30/23 EXAMINATION: CT ABDOMEN AND PELVIS WITHOUT CONTRAST CLINICAL INFORMATION: Left flank pain. COMPARISON: CT abdomen pelvis dated 01/02/2021. TECHNIQUE: Multidetector volumetric imaging was performed from the superior aspect of the liver through the pubic symphysis. Sagittal and coronal reformatted images were obtained on the technologist's workstation. This CT examination was performed using dose optimization techniques as appropriate, variously including the following: *Automated exposure control *Adjustment of mA and/or kV according to patient size (this includes techniques or standardized protocols for targeted exams where dose is matched to indication/reason for exam; i.e. extremities or head) *Use of iterative reconstruction technique DLP: 864 mGy-cm FINDINGS: LUNG BASES: The lung bases are clear. Heart size is normal. There are coronary artery calcifications. LIVER, GALLBLADDER, AND BILIARY TREE: The liver is normal in size, shape, and attenuation. There are 2 stable low-attenuation lesions within the liver measuring 1.5 and 1.7 cm, respectively. Both likely represent simple cysts. No biliary ductal dilatation is present. There is a 1.8 cm gallstone. There is no gallbladder wall thickening or obvious pericholecystic inflammatory changes. PANCREAS: Unremarkable. SPLEEN: Unremarkable. ADRENAL GLANDS: Unremarkable. KIDNEYS AND URETERS: Right kidney and ureter: The right kidney is normal in size. There are multiple right renal calculi the majority of them are within the lower pole. The largest right renal calculus measures 6 mm. It measures approximately 318 Hounsfield units. There is no right perinephric stranding. No right hydronephrosis. No right ureteral calculus. Left kidney and ureter: The left kidney is normal in size. Left kidney contains multiple renal calculi. The largest is located within the interpolar region and measures 9 mm in length. This calculus measures 305 Hounsfield units. There is mild left hydronephrosis. There is moderate left perinephric stranding. There is an obstructing calculus within the proximal left ureter at the level of the superior endplate of the L3 vertebral body measuring 6 mm in length. The calculus measures 1047 Hounsfield units. There is left periureteric stranding. The distal left the ureter distal to this obstructing calculus is normal in appearance. BLADDER: The urinary bladder is minimally distended. There are no urinary bladder calculi. GASTROINTESTINAL TRACT: The small bowel and colon are normal in caliber. The appendix is not definitively identified, however, there are no inflammatory changes within the expected location of the appendix to suggest an acute inflammatory process. There is sigmoid colon diverticulosis without evidence of acute diverticulitis. ABDOMINAL WALL: No significant hernia is appreciated. LYMPH NODES: No retroperitoneal or pelvic lymphadenopathy. VASCULAR: No abdominal aortic aneurysm. Moderate vascular calcifications. PELVIC VISCERA: Unremarkable. OSSEOUS STRUCTURES: There is degenerative disease of the visualized spine. IMPRESSION: - There is an obstructing calculus within the proximal left ureter at the level of the superior endplate of the L3 vertebral body measuring 6 x 4 mm. The calculus measures 1047 Hounsfield units. There is left sided hydroureteronephrosis. There is left perinephric stranding. - There are bilateral nonobstructive renal calculi as described. - Stable hepatic cysts as described. - Cholelithiasis without evidence of acute cholecystitis. - Diverticulosis without evidence of acute diverticulitis. Assessment & Plan Assessment & Plan (1) Nephrolithiasis: Comment: Mixed calcium oxalate stones December 2020 Code(s): N20.0 - Calculus of kidney Category: Medical (2) Flank pain: Code(s): R10.9 - Unspecified abdominal pain Category: Medical (3) Hydronephrosis, left: Code(s): N13.30 - Unspecified hydronephrosis Category: Medical Plan CT kidney stone protocol, 24 hr urine pending Orders: Orders CT kidney stone 11/07/23 N20.0 - Calculus of kidney, R10.9 - Unspecified abdominal pain Patient Instructions: The patient had an opportunity to ask questions regarding treatment plan. The patient expressed understanding and agreement with the above treatment plan. The patient is aware they should contact our office by phone for worsening of their current condition or the appearance of new symptoms. Compliance is encouraged with any medications and followup testing that is ordered. It is a privilege to be allowed the opportunity to participate in the urologic care of your patient. If you have any questions or concerns regarding treatment for the above conditions please do not hesitate to contact me. The office telephone contact is [phone]. This note is constructed in part using voice recognition software. While every effort has been made to ensure accuracy heavy equipment operator/paver errors may have been included. Yours sincerely, Rodrigo Carrion MD Coding Level of Care Code Tele Est Pt Level 4 (99505) Diagnoses Nephrolithiasis N20.0 Flank pain R10.9 Hydronephrosis, left N13.30
--- OUTSIDE RECORDS SUMMARY | 2023-11-07 15:28 | XMS_ITS ---
Author Organization [facility] Address [address] [place] [address] Care Team Providers Care Pony Ride Attendant Name Role Phone Raji Amanda MD Primary Care Provider Adam Moraes Unavailable [phone] ALLERGIES No Known Allergies REASON FOR VISIT Patient presents today for chronic hep b MEDICATIONS Medication SIG (Take, Route, Fr equency, Duration) Notes Start Date End Date Status Allopurinol 100 MG Oral for 90 Active Omeprazole 20 MG TAKE 1 CAPSULE BY MO [facility] EVERY DAY IN THE MORNING for 90 Active Entecavir 0.5 MG TAKE 1 TABLET BY SINA 1 TIME A DAY ON AN EMPTY STOMACH. Active SOCIAL HISTORY Tobacco Use: Social History Observation Description Date Details (start date - stop date) Never Smoker NA - NA Sex Assigned At : Social History Observation Description Sex Assigned At Unknown Tobacco Use/Smoking Question Answer Notes Patient is a nonsmoker Alcohol Screen Question Answer Notes Did you have a drink contain ing alcohol in the past year? Yes How often did you have a dri nk containing alcohol in the past year? Never (0 point) How many drinks did you have on a typical day when you were drinking in the past year? 1 or 2 drinks (0 point) How often did you have 6 or more drinks on one occasion in the past year? 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 B18.1 ; Other cirrhosis of liver K74.69 ; Gastroesophageal reflux disease with esophagitis, unspecified whether hemorrhage K21.00 ; History of colon polyps Z86.010 and Cirrhosis of liver without ascites, unspecified hepatic cirrhosis type K74.60 ASSESSMENTS Encounter Date Diagnosis Assessment Notes Treatment Notes Treatment Clinical Notes 07/03/2023 Chronic viral hepati tis B without delta agent and without coma (ICD-10 - B18.1) Continue the daily Entecavir half-way 07/03/2023 Other cirrhosis of liver (ICD-10 - K74.69) 07/03/2023 Gastroesophageal ref lux disease with esophagitis, unspecified whether hemorrhage (ICD-10 - K21.00) 07/03/2023 History of colon otis yps (ICD-10 - Z86.010) 07/03/2023 Cirrhosis of liver without ascites, unspecified hepatic cirrhosis type (ICD-10 - K74.60) PLAN OF TREATMENT Medication Medication Name Sig Start Date Stop Date Notes Entecavir 0.5 MG TAKE 1 TABLET BY SINA TH 1 TIME A DAY ON AN EMPTY STOMACH. Treatment Notes Assessment Notes Chronic viral hepatitis B wi thout delta agent and without coma Continue the daily Entecavir half-way Next Appt Details Follow Up: 01/2024, Reason: Provider Name:Adam Beebe , 02/06/2024 04:20:00 PM, [address], [address], [place], [address], Progress Notes * Examination Category Sub-Category Detail Notes General Examination GENERAL APPEARANCE: pleasant , well nourished, well developed, in no acute distress HEAD: EYES: sclera non-icteric EARS: NOSE: THROAT: NECK/THYROID: no cervical lymphade nopathy, neck supple HEART: S1, S2 normal CHEST: LUNGS: clear to auscultatio n bilaterally ABDOMEN: normal bowel sounds, no guarding or rigidity, no guarding or rigidity, no masses palpable, soft, nontender, nondistended NEUROLOGIC: alert and oriented SKIN: nonjaundiced, no spi jac angiomata EXTREMITIES: no edema PERIPHERAL PULSES: BACK: BREASTS: MUSCULOSKELETAL: MALE GENITOURINARY: LYMPH NODES: RECTAL EXAM: FEMALE GENITOURINARY: ORAL CAVITY: mucosa moist
--- OUTSIDE RECORDS SUMMARY | 2023-11-07 15:29 | XMS_ITS | Continuity of Care Document ---
Author Organization [facility] Address [address] [place] [address]- Care Team Providers Care Video News Editor Name Role Phone Raji Amanda MD Primary Care Physician Encounter [facility] [place] Date(s): 04/19/21 - 05/19/[address] [id number] Attending Physician: Lesly Ugarte Admitting Physician: Lesly Ugarte Referring Physician: AdmtrLesly Allergies, Adverse Reactions, Alerts No Known Allergies Medications acetaminophen 325 mg oral tablet 650 mg, By Mouth, Every 6 hours, May take OTC, follow directions on bottle, Refills 0, Maintenance,05/04/21 11:12:00 EST, Partial fill upon patient request if the prescription is for a schedule II opioid drug. Start Date: 05/04/21 Status: Ordered allopurinol 100 mg oral tablet 90 tablet, Refills 0, 04/14/21 10:01:00 EST, Partial fill upon patient request if the prescription is for a schedule II opioid drug. Start Date: 04/14/21 Status: Ordered apixaban 2.5 mg oral tablet 1 tablet = 2.5 mg, By Mouth, 2 times a day, # 60 tablet, 0 Refills, Maintenance, 05/04/21 11:12:00 EST, Tablet, [facility], Partial fill upon patient request if the prescription is for a schedule II opioid drug., 182, cm, 05/04/21 6:44:0... Start Date: 05/04/21 Stop Date: 06/03/21 Status: Ordered docusate sodium 100 mg oral capsule 100 mg, 1, capsule, By Mouth, 2 times a day, hold for loose stool, # 60 capsule, Refills 0, Tot. Refills 0, Maintenance, 05/04/21 11:13:00 EST, Route to Pharmacy Electronically, [facility], Partial fill upon patient request if the prescr... Start Date: 05/04/21 Stop Date: 06/03/21 Status: Ordered doxazosin 4 mg oral tablet 90 tablet, 0 Refills, 04/14/21 10:01:00 EST, Partial fill upon patient request if the prescription is for a schedule II opioid drug. Start Date: 04/14/21 Status: Ordered entecavir 0.5 mg oral tablet 30 tablet, 0 Refills, 04/14/21 10:02:00 EST, Partial fill upon patient request if the prescription is for a schedule II opioid drug. Start Date: 04/14/21 Status: Ordered hydrochlorothiazide 25 mg oral tablet 25 mg, 1, tablet, By Mouth, Daily, Refills 0, Maintenance, 05/07/21 8:40:00 EST, Partial fill upon patient request if the prescription is for a schedule II opioid drug. Start Date: 05/07/21 Status: Ordered Maalox Plus Liquid 30 mL, By Mouth, Every 4 hours, PRN Other, Heartburn, 0 Refills, Maintenance, 05/04/21 11:12:00 EST, Suspension, Partial fill upon patient request if the prescription is for a schedule II opioid drug. Start Date: 05/04/21 Status: Ordered MiraLax Powder 1 pack/packet = 17 Gm, By Mouth, Daily, PRN Constipation, 0 Refills, Maintenance, 05/04/21 11:14:00EST, Powder, Partial fill upon patient request if the prescription is for a schedule II opioid drug. Start Date: 05/04/21 Status: Ordered MOM Liquid 30 mL, By Mouth, Daily, PRN Constipation, 0 Refills, Maintenance, 05/04/21 11:13:00 EST, Suspension, Partial fill upon patient request if the prescription is for a schedule II opioid drug. Start Date: 05/04/21 Status: Ordered omeprazole 20 mg oral enteric coated capsule 90 capsule, 0 Refills, 04/14/21 10:03:00 EST, Partial fill upon patient request if the prescriptionis for a schedule II opioid drug. Start Date: 04/14/21 Status: Ordered senna 187 mg oral tablet 1 tablet = 8.6 mg, By Mouth, Daily at bedtime, PRN as needed for constipation, 0 Refills, Maintenance, 05/04/21 11:14:00 EST, Tablet, Partial fill upon patient request if the prescription is for a schedule II opioid drug. Start Date: 05/04/21 Status: Ordered tadalafil 5 mg oral tablet 90 each, TAKE 1 TABLET BY MOUTH DAILY NEEDED FOR SEXUAL ACTIVITY, 0 Refills, 04/14/21 10:04:00 EST, Partial fill upon patient request if the prescription is for a schedule II opioid drug. Start Date: 04/14/21 Status: Ordered tamsulosin 0.4 mg oral capsule 0.4 mg, 1, capsule, By Mouth, Daily at bedtime, # 90 capsule, Refills 0, Maintenance, 05/03/21 8:36:00 EST, Partial fill upon patient request if the prescription is for a schedule II opioid drug. Start Date: 05/03/21 Status: Ordered Problem List Condition Effective Dates Status Health Status Inform ant HTN (hypertension), benign(Confirmed) Active BPH (benign prostatic hyperplasia)(Confirmed) Active Chronic viral hepatitis B wi thout delta-agent(Confirmed) Active Cirrhosis of liver(Confirmed) Active Gastro-esophageal reflux dis ease with esophagitis(Confirmed) Active Hyperuricemia(Confirmed) Active Kidney stone(Confirmed) Active Obese class I(Confirmed) Active CARMEN (obstructive sleep apnea)(Confirmed) Active Osteoarthritis(Confirmed) 1 Active Thrombocytopenia(Confirmed) Active 1Left HIp Social History Social History Type Response Smoking Status Never (less than 100 in lifetime) entered on: 04/14/21 Sex
--- OUTSIDE RECORDS SUMMARY | 2023-11-07 15:29 | XMS_ITS | Patient Health Record ---
Author [facility] Address [address] [place] [address] Care Team Providers Care Gallery Or Museum Curator Name Role Phone Raji Amanda MD Primary Care Provider Sha Caballero Unavailable [phone] ALLERGIES No Known Allergies REASON FOR REFERRAL No Information MEDICATIONS Medication SIG (Take, Route, Fr equency, Duration) Notes Start Date End Date Status Allopurinol 100 MG 1 tablet Orally Once a day for 30 day(s) Active Entecavir 0.5 MG as directed Orally Active Omeprazole 20 MG as directed Orally Active Vitamin B6 100 MG 1 tablet Orally Once a day for 30 day(s) Active Omeprazole 20 MG 1 capsule 30 minutes before morning meal Orally Once a day for 30 day(s) Not-Taking Entecavir 0.5 MG 1 tablet on an empty stomach Orally Once a day for 10 day(s) Not-Taking Allopurinol 100 MG 1 tablet Orally Once a day for 30 day(s) Not-Taking Ciclopirox 0.77 % 1 application to aff ected area Externally Twice a day to effected nails for 30 days Ac tive SOCIAL HISTORY Tobacco Use: Social History Observation Description Date Details (start date - stop date) Never Smoker NA - NA Sex Assigned At : Social History Observation Description Sex Assigned At Unknown Tobacco Use/Smoking Question Answer Notes Are you a: nonsmoker Additional Findings: Tobacco Non-User Current no n-smoker Alcohol Screen Question Answer Notes Did you have a drink contain ing alcohol in the past year? Yes How often did you have a dri nk containing alcohol in the past year? Monthly or less (1 point) Points 1 Interpretation Negative Tobacco use other than smoking: Question Answer Notes Are you an other tobacco user? No PROBLEMS Problem Type ICD Code Onset Dates Problem Status W/U Status Risk SNOMED Code Notes Problem Tinea unguium (B35.1) Active confirmed Tinea unguium ([id number]) VITAL SIGNS Height 6ft in 10/15/2023 Weight 248 lbs 10/15/2023 BMI 33.63 kg/m2 10/15/2023 Encounters Encounter Location Date Provider Diagnosis [facility] [address] 02/05/2023 Shamadison RaiWillow [address] [address] 02/22/2023 Sha Willow Tinea unguium B35.1 ; Pain in right toe(s) M79.674 and Pain in left toe(s) M79.[address] [address] 10/15/2023 Sha Willow Tinea unguium B35.1 ; Pain in right toe(s) M79.674 and Pain in left toe(s) M79.675 ASSESSMENTS Encounter Date Diagnosis Assessment Notes Treatment Notes Treatment Clinical Notes 02/22/2023 Tinea unguium (ICD-10 - B35.1) 02/22/2023 Pain in right toe(s) (ICD-10 - M79.674) 10/15/2023 Tinea unguium (ICD-10 - B35.1) 10/15/2023 Pain in right toe(s) (ICD-10 - M79.674) 10/15/2023 Pain in left toe(s) (ICD-10 - M79.675) 02/22/2023 Pain in left toe(s) (ICD-10 - M79.675) PLAN OF TREATMENT No Information Insurance Providers Payer Name Payer Address Payer Phone Subscriber Number Group Number Insured Name Patient Relationship to Insured Coverage Start Date Coverage End Date Medicare [employer] [address] [place] [address] [id number] Gene Corrigan Self - patient is the insured [employer] [facility] [address] [place] [address] [id number] Gene Corrigan Self - patient is the insured MEDICAL (GENERAL) HISTORY Medical History History ICD Code Gall bladder problems Hepatitis B Liver disease Measles Mumps Chicken pox Bone implants/screws Surgical History Surgery Date(Month/Year) left hip replacement 05/03/21 ankle surgery - Fracture ORIF, Right 04/27 024 vein surgery 05/2023 Hospitalization History Reason Date(Month/Year) [facility] [place] - Kidney stones 05/2023 [facility], Broken ankle 04/2023, 05/2023
--- OUTSIDE RECORDS SUMMARY | 2023-11-07 15:29 | XMS_ITS | Continuity of Care Document ---
Author Organization [facility] Address [address] [place] [address]- Care Team Providers Care Guest Relations Agent Name Role Phone Vasiliy PRINGLE, Raji Ramos Primary Care Physician [place] [facility] Date[place]): 02/07/21 - 03/09/21 [facility] [address] [place] [id number] Attending Physician: Lesly Ugarte Admitting Physician: Lesly Ugarte Referring Physician: Lesly Ugarte
--- OUTSIDE RECORDS SUMMARY | 2023-11-07 15:29 | XMS_ITS | Continuity of Care Document ---
Author Organization [facility] Address [address] [place] [address]- Care Team Providers Care Real Estate Attorney Name Role Phone Vasiliy PRINGLE, Raji Ramos Primary Care Physician Encounter [facility] Date(s): 04/14/21 - 05/14/21 [facility] [address] [place], [place] [address] Attending Physician: Lesly Ugarte Admitting Physician: AdmLesly sarmiento Referring Physician: AdmtrLesly Allergies, Adverse Reactions, Alerts [...] 0 Refills, Maintenance, 05/04/21 11:12:00 EST, Tablet, [facility], Partial fill upon patient request if [...] 05/04/21 11:13:00 EST, Route to Pharmacy Electronically, [facility], Partial fill upon patient request [...]
--- OUTSIDE RECORDS SUMMARY | 2023-11-07 15:29 | XMS_ITS | Continuity of Care Document ---
Author Organization [facility] Address [address] [place] [address]- Care Team Providers Care Soils Analyst Name Role Phone Vasiliy PRINGLE, Raji Ramos Primary Care Physician En[place] [facility] [place] Date(s): 12/24/20 - 01/23/21 [facility] [address] [place], [place] [address]
--- OUTSIDE RECORDS SUMMARY | 2023-11-07 15:29 | XMS_ITS ---
Author Organization [facility] Address [address] [place] [address] Care Team Providers Care Mysql Dba Name Role Phone Raji Amanda MD Primary Care Provider Unavaila Sha Gaines Unavailable [phone] REASON FOR VISIT Ingrown nails Encounters En[facility] Date [facility] [address] [place] [address] 02/05/2023 Sha Daugherty PLAN OF TREATMENT No Information
--- OUTSIDE RECORDS SUMMARY | 2023-11-07 15:29 | XMS_ITS | Continuity of Care Document ---
Author Organization [facility] Address [address] [place] [address]- Care Team Providers Care Pottery Striper Name Role Phone Vasiliy PRINGLE, Raji Ramos Primary Care Physician [place] [facility] [place] - 03/09/21 [facility] [address] [place] [id number] Attending Physician: Nazia Burton MD Admitting Physician: Nazia Burton MD Referring Physician: Perla Link MD
--- OUTSIDE RECORDS SUMMARY | 2023-11-07 15:29 | XMS_ITS ---
Author Organization [facility] Address [address] [place] [address] Care Team Providers Care Scientific Photographer Name Role Phone Raji Amanda MD Primary Care Provider Unavaila Sha Gaines Unavailable [phone] REASON FOR VISIT Fungal Nails MEDICATIONS Medication SIG (Take, Route, Fr equency, Duration) Notes Start Date End Date Status Allopurinol 100 MG 1 tablet Orally Once a day for 30 day(s) Active Entecavir 0.5 MG as directed Orally Active Omeprazole 20 MG as directed Orally Active Allopurinol 100 MG 1 tablet Orally Once a day for 30 day(s) Not-Taking Ciclopirox 0.77 % 1 application to aff ected area Externally Twice a day to effected nails for 30 days Ac tive Vitamin B6 100 MG 1 tablet Orally Once a day for 30 day(s) Active Omeprazole 20 MG 1 capsule 30 minutes before morning meal Orally Once a day for 30 day(s) Not-Taking Entecavir 0.5 MG 1 tablet on an empty stomach Orally Once a day for 10 day(s) Not-Taking SOCIAL HISTORY Tobacco Use: Social History Observation [...] Are you an other tobacco user? No VITAL SIGNS Height 6ft in 10/15/2023 Weight 248 lbs 10/15/2023 BMI 33.63 kg/m2 10/15/2023 Encounters Encounter Location Date Provider Diagnosis [facility] [place] [address] [place] [address] 10/15/2023 Sha Daugherty Tinea unguium B35.1 ; Pain in right toe(s) M79.674 and Pain in left toe(s) M79.675 ASSESSMENTS Encounter Date Diagnosis Assessment Notes Treatment Notes Treatment Clinical Notes 10/15/2023 Tinea unguium (ICD-10 - B35.1) 10/15/2023 Pain in right toe(s) (ICD-10 - M79.674) 10/15/2023 Pain in left toe(s) (ICD-10 - M79.675) PLAN OF TREATMENT Medication Medication Name Sig Start Date Stop Date Notes Ciclopirox 0.77 % 1 application to aff ected area Externally Twice a day to effected nails for 30 days Next Appt Details Follow Up: prn, Reason: Progress Notes * Examination Category Sub-Category Detail Notes Nails NAILS are: STILL, Elongated , overgrown, dystrophic, lytic, greater than 3mm thick, discolored and friable with crumbly malodorous subungual debris, with pain on palpation, NOW ALSO T3, T4, T5 History and Physical Notes * HPI (History of Present Illness) Category Sub-Category Detail Notes Painful Nails Aggravated by: shoegear causing difficulty standing/walking Duration: 1 year or more Location: Both feet Nature: aching, tender, disc olored Treatments: Ciclopirox topical g el , since , , relates incomplete sporatic adherence to recom tx , denies any adverse side effects to medication , (i.e. adjacent periungual skin irritation, inflammation, erosion)
--- OUTSIDE RECORDS SUMMARY | 2023-11-07 15:29 | XMS_ITS | Continuity of Care Document ---
Author Organization [facility] ter Address [address] [place] [id number] Care Team Providers Care Cable Former Name Role Phone Vasiliy PRINGLE, Raji Ramos Primary Care Physician Encounter [facility] Date(s): 05/03/21 - 05/07/[address] [address] Discharge Disposition: A-Transfer VNA/Home Health Attending Physician: Ritchie Cornell MD Admitting Physician: Ritchie Cornell MD Referring Physician: Ritchie Cornell MD Allergies, Adverse Reactions, Alerts No Known Allergies Medications acetaminophen 325 mg oral tablet 650 mg, By Mouth, Every 6 hours, May take OTC, follow directions on bottle, Refills 0, Maintenance,05/04/21 11:12:00 EST, Partial fill upon patient request if the prescription is for a schedule II opioid drug. Start Date: 05/04/21 Status: Ordered Acetaminophen Tablet 650 mg, Tablet, By Mouth, 05/07/21 5:00:00 EST Start Date: 05/07/21 Stop Date: 05/07/21 Status: Completed allopurinol 100 mg oral tablet 90 tablet, Refills 0, 04/14/21 10:01:00 EST, Partial fill upon patient request if the prescription is for a schedule II opioid drug. Start Date: 04/14/21 Status: Ordered apixaban 2.5 mg oral tablet 1 tablet = 2.5 mg, By Mouth, 2 times a day, # 60 tablet, 0 Refills, Maintenance, 05/04/21 11:12:00 EST, Tablet, [facility], Partial fill upon patient request if the prescription is for a schedule II opioid drug., 182, cm, 05/04/21 6:44:0... Start Date: 05/04/21 Stop Date: 06/03/21 Status: Ordered Dilaudid 2 mg oral tablet 1 tablet = 2 mg, By Mouth, Every 4 hours, PRN Pain , Moderate, for 7 days, # 42 tablet, 0 Refills, Acute 05/11/21 11:32:00 EDT, 05/04/21 11:32:00 EST, Tablet, [facility], Partial fill upon patient request if the prescription is for a aura... Start Date: 05/04/21 Stop Date: 05/11/21 Status: Ordered docusate sodium 100 mg oral capsule 100 mg, 1, capsule, By Mouth, 2 times a day, hold for loose stool, # 60 capsule, Refills 0, Tot. Refills 0, Maintenance, 05/04/21 11:13:00 EST, Route to Pharmacy Electronically, [facility], Partial fill upon patient request if [...] opioid drug. Start Date: 05/03/21 Status: Ordered traMADol 50 mg oral tablet 100 mg, Tablet, By Mouth, Every 6 hours, PRN for Pain , Moderate, Routine, 05/05/21 11:22:00 EST Start Date: 05/05/21 Stop Date: 05/07/21 Status: Discontinued traMADol 50 mg oral tablet See Instructions, PRN Pain , Mild, Take 1-2 tablets By Mouth Every 6 hours as needed, # 56 tablet, 0 Refills, Acute 05/11/21 11:14:00 EDT, 05/04/21 11:14:00 EST, Tablet, [facility], Partial fill upon patient request if the prescription i... Start Date: 05/04/21 Stop Date: 05/11/21 Status: Ordered Problem List Condition Effective Dates Status Health Status Inform ant HTN (hypertension), benign(Confirmed) Active BPH (benign prostatic hyperplasia)(Confirmed) Active Chronic viral hepatitis B wi thout delta-agent(Confirmed) Active Cirrhosis of liver(Confirmed) Active Gastro-esophageal reflux dis ease with esophagitis(Confirmed) Active Hyperuricemia(Confirmed) Active Kidney stone(Confirmed) Active Obese class I(Confirmed) Active CARMEN (obstructive sleep apnea)(Confirmed) Active Osteoarthritis(Confirmed) 1 Active Thrombocytopenia(Confirmed) Active 1Left HIp Results Radiology Reports * Exam Date Time Procedure Performing Provider Status 05/03/21 10:35 PM Pelvis 1 or 2 Views Mirela Hayward (Verified) Notes: (Pelvis 1 or 2 Views) Reason For Exam: Postop Prosthesis;Postop Prosthesis RESULT: Pelvis 1 or 2 Views Pelvis 1 or 2 Views Reason: Postop Prosthesis; Clinical Question(s): Status of Hip Prosthesis; Special Instructions: LEFT Hip - Do today at 2200; Order Comment: COMPARISON: 05-03-21 FINDINGS: Single AP view of the pelvis status post left total hip arthroplasty. No evidence of periprosthetic fracture or hardware complication. Soft tissue gas is an expected postoperative finding. IMPRESSION: Expected postoperative findings status post left hip arthroplasty WSN: [id number] Ordering Physician: Fidel Mart Dictated By: Ritchie Willis MD Dictated Date/Time: 05/04/21 8:12 am Reviewed By: Ritchie Willis MD Signed By: Ritchie Willis MD Signed Date/Time: 05/04/21 8:12 am Transcribed By: EKTA Transcribed Date/Time: 05/04/21 8:11 am * Exam Date Time Procedure Performing Provider Status 05/03/21 4:01 PM Pelvis 1 or 2 Views Nara Avilez (Verified) Notes: (Pelvis 1 or 2 Views) Reason For Exam: Post-op pelvis RESULT: Pelvis 1 or 2 Views Pelvis 1 View Reason: Post-op pelvis COMPARISON: Study done earlier same day. FINDINGS: ?Components of prosthesis appear to be in typical location on this single view study. ? IMPRESSION: Unremarkable post op study WSN: [id number] Ordering Physician: Ritchie Cornell Dictated By: Adam Patel MD Dictated Date/Time: 05/03/21 4:35 pm Reviewed By: Adam Patel MD Signed By: Adam Patel MD Signed Date/Time: 05/03/21 4:35 pm Transcribed By: EKTA Transcribed Date/Time: 05/03/21 4:32 pm * Exam Date Time Procedure Performing Provider Status 05/03/21 3:10 PM Pelvis 1 or 2 Views Nara Avilez (Verified) Notes: (Pelvis 1 or 2 Views) Reason For Exam: intra op pelvis RESULT: Pelvis 1 or 2 Views Pelvis 1 or 2 Views Reason: intra op pelvis / COMPARISON: None. FINDINGS: There is a left hip arthroplasty in progress. The acetabular component appears well situated. Therehas been proximal femoral osteotomy, and there is a rasp within the proximal femur. There is overlying soft tissue swelling and soft tissue gas compatible with the intraoperative state. Surgical sutures overlie the pelvis. IMPRESSION: Left hip arthroplasty in progress. WSN: [id number] Ordering Physician: Ritchie Cornell Dictated By: Tobin Xavier MD Dictated Date/Time: 05/03/21 4:30 pm Reviewed By: Tobin Xavier MD Signed By: Tobin Xavier MD Signed Date/Time: 05/03/21 4:30 pm Transcribed By: EKTA Transcribed Date/Time: 05/03/21 4:30 pm Vital Signs Most recent to oldest [Reference Range]: 1 2 3 Height 182 cm (05/06/21 6:25 PM) 182 cm (05/06/21 3:20 PM) 182 cm (05/06/21 7:00 AM) Weight 110.5 kg (05/03/21 11:31 AM) 110.5 kg (05/03/21 8:25 AM) Oxygen Saturation [94-100 %] 96 % (05/07/21 6:00 AM) 98 % (05/07/21 3:00 AM) 97 % (05/06/21 11:00 PM) Pulse Rate [55-90 bpm] 66 bpm (05/07/21 6:00 AM) 68 bpm (05/07/21 3:00 AM) 70 bpm (05/06/21 11:00 PM) Body Mass Index [18.5-24.99] 33.36 *>HHI* (05/03/21 11:31 AM) 33.36 *>HHI* (05/03/21 8:25 AM) Blood Pressure [90-138/55-84 mm Hg] 106/57mm Hg (05/07/21 6:00 AM) 110/44mm Hg (05/07/21 3:00 AM) 110/50mm Hg (05/06/21 11:00 PM) Respiratory Rate [16-30 br/min] 18 br/min (05/07/21 7:30 AM) 18 br/min (05/07/21 6:51 AM) 16 br/min (05/07/21 6:00 AM) Temperature [96.8-100.4 DegF] 98.2 DegF (05/07/21 6:00 AM) 98.6 DegF (05/07/21 3:00 AM) 98.4 DegF (05/06/21 11:00 PM) Liters per Minute 2 L/min (05/06/21 3:00 AM) 2 L/min (05/04/21 6:44 AM) 2 L/min (05/04/21 3:00 AM) Mode of Delivery (Oxygen) Room air (05/07/21 6:00 AM) Room air (05/07/21 3:00 AM) Room air (05/06/21 11:00 PM) Blood pressure sites Arm, right (05/07/21 6:00 AM) Arm, left (05/07/21 3:00 AM) Arm, left (05/06/21 11:00 PM) Temperature Route Oral (05/07/21 6:00 AM) Oral (05/07/21 3:00 AM) Oral (05/06/21 11:00 PM) Dry Weight 110.5 kg (05/03/21 11:31 AM) 110.5 kg (05/03/21 8:25 AM) Weight Obtained Via Standing scale (05/03/21 8:25 AM) Dry Weight Obtained Via Standing scale (05/03/21 11:31 AM) Standing scale (05/03/21 8:25 AM) Social History Social History Type Response Smoking Status Never (less than 100 in lifetime) entered on: 04/14/21 Sex
--- OUTSIDE RECORDS SUMMARY | 2023-11-07 15:29 | XMS_ITS ---
[facility] Address [address] [place] [address] Care Team Providers Care Rehab Physician Name Role Phone Raji Amanda MD Primary Care Provider Unavaila Sha Gaines Unavailable [phone] ALLERGIES No Known Allergies REASON FOR VISIT Fungal Nails MEDICATIONS Medication SIG (Take, Route, Fr equency, Duration) Notes Start Date End Date Status Ciclopirox 0.77 % 1 application to aff ected area Externally Twice a day to effected nails for 30 days 02/22/2023 Ac tive Vitamin B6 100 MG 1 tablet Orally Once a day for 30 day(s) Active Omeprazole 20 MG 1 capsule 30 minutes before morning meal Orally Once a day for 30 day(s) Not-Taking Allopurinol 100 MG 1 tablet Orally Once a day for 30 day(s) Not-Taking Entecavir 0.5 MG 1 tablet on an empty stomach Orally Once a day for 10 day(s) Not-Taking Omeprazole 20 MG as directed Orally Active Entecavir 0.5 MG as directed Orally Active Allopurinol 100 MG 1 tablet Orally Once a day for 30 day(s) Active SOCIAL HISTORY Tobacco Use: Social History Observation Description Date Details (start date - stop date) Never Smoker NA - NA Sex Assigned At : Social History Observation Description Sex Assigned At Unknown Tobacco Use/Smoking Question Answer Notes Are you a: nonsmoker Alcohol Screen Question Answer Notes Did [...] Tinea unguium (B35.1) Active confirmed Tinea unguium ([id number]) VITAL SIGNS Height 6ft in 02/22/2023 Weight 261 lbs 02/22/2023 BMI 35.39 kg/m2 02/22/2023 Encounters Encounter Location Date Provider Diagnosis [facility] [address] [id number] 02/22/2023 Sha Daugherty Tinea unguium B35.1 ; Pain in right toe(s) M79.674 and Pain in left toe(s) M79.675 ASSESSMENTS Encounter Date Diagnosis Assessment Notes Treatment Notes Treatment Clinical Notes 02/22/2023 Tinea unguium (ICD-10 - B35.1) 02/22/2023 Pain in right toe(s) (ICD-10 - M79.674) 02/22/2023 Pain in left toe(s) (ICD-10 - M79.675) PLAN OF TREATMENT Medication Medication Name Sig Start Date Stop Date Notes Ciclopirox 0.77 % 1 application to aff ected area Externally Twice a day to effected nails for 30 days 02/22/2023 Next Appt Details Follow Up: prn, Reason: Progress Notes * Examination Category Sub-Category Detail Notes Nails NAILS are: Elongated, overg rown, dystrophic, lytic, greater than 3mm thick, discolored and friable with crumbly malodorous subungual debris, with pain on palpation, T4, T5 History and Physical Notes * HPI (History of Present Illness) Category Sub-Category Detail Notes Painful Nails Aggravated by: shoegear causing difficulty standing/walking Duration: 1 year or more Location: Both feet Nature: aching, tender, disc olored Treatments: none
--- OUTSIDE RECORDS SUMMARY | 2023-11-07 15:29 | XMS_ITS | Patient Health Record ---
Author Organization [facility] Address [address] [place] [address] Care Team Providers Care Utilization Review Coordinator Name Role Phone Raji Amanda MD Primary Care Provider Unavaila Adam Paris Unavailable [phone] ALLERGIES No Known Allergies RESULTS Component Value Reference Range Notes Complete Blood Count Auto Di ff Reviewed date:03/08/2023 03:46:53 PM Interpretation: Performing Lab:[facility], [address] [place] [phone] Notes/Report: White Blood Count 6.0 4.8-10.8 X10*3/uL Red Blood Count 4.69 4.60-5.80 X10*6/uL Hemoglobin 14.1 14.0-18.0 g/dl Hematocrit 42.0 42.0-52.0 % Mean Corpuscular Volume 89.6 80.0-98.0 fL Mean Corpuscular Hemoglobin 30.1 27.0-33.0 pg Mean Corpuscular HGB Conc 33.6 31.0-36.0 g/dl Red Cell Distribution Width 14.1 11.0-16.0 % Platelet Count 105 160-400 X10*3/uL Mean Platelet Volume 11.1 9.4-12.4 fL Neutrophils Percent Auto 59.8 45-73 % Imm Gran Pct Auto 0.2 0.0-0.4 % Lymphocytes Percent Auto 24.4 20-40 % Monocytes Percent Auto 13.3 2-11 % Eosinophils Percent Auto 1.8 0-4 % Basophils Percent Auto 0.5 0-2 % NRBC Pct Auto 0.0 0.0-0.2 /100WBC Neutrophils Absolute Auto 3.6 2.0-8.3 x10*3/uL Imm Gran Abs Auto 0.01 0.00-0.03 X10*3/uL Lymphocytes Absolute Auto 1.5 1.2-4.9 X10*3/uL Monocytes Absolute Auto 0.8 0.1-1.2 X10*3/uL Eosinophils Absolute Auto 0.1 0.0-0.4 X10*3/uL Basophils Absolute Auto 0.0 0.0-0.2 X10*3/uL NRBC Abs Auto 0.000 0.0-0.012 X10*3/uL Prothrombin Time INR Reviewed date:03/08/2023 03:46:32 PM Interpretation: Performing Lab:[address] [phone] Notes/Report: Prothrombin Time 12.7 11.1-13.3 SEC INTERNATIONAL NORM RATIO 1.0 0.9-1.1 INTERNATIONAL NORMALIZED RATIO (INR) REFERENCE RANGES Reference Range For patients not on anticoagulant therapy: 0.9 - 1.1 INR ranges for oral anticoagulant therapy: For prevention and treatment of venous thrombosis and pulmonary embolism: 2.0 - 3.0 For acute myocardial infarction with aspirin therapy: 2.0 - 3.0 For acute myocardial infarction without aspirin therapy: 3.0 - 4.0 For patients with mechanical prosthetic heart valves: 2.5 - 3.5 Liver Panel Reviewed date:03/10/2023 12:43:02 PM Interpretation: Performing Lab:[address] [phone] Notes/Report: Bilirubin Total 1.4 0.0-1.0 mg/dL Bilirubin Direct 0.4 0.0-0.5 mg/dL Aspartate Amino Transferase 40 5-37 U/L Alanine Aminotransferase 15 0-40 U/L Total Protein 6.9 6.5-8.0 g/dL Albumin Level 3.8 3.5-5.0 g/dL Alkaline Phosphatase 97 39-117 U/L Basic Metabolic Panel Reviewed date:03/08/2023 03:46:21 PM Interpretation: Performing Lab:[address] [phone] Notes/Report: Sodium 142 135-145 mmol/L Potassium 4.4 3.3-5.1 mmol/L Chloride 108 96-108 mmol/L Carbon Dioxide 26 22-29 mmol/L Anion Gap 12 12-20 Blood Urea Nitrogen 16 9-16 mg/dL Creatinine 0.83 0.5-1.4 mg/dL Estimated Glomerular Filt Rate > 60 NOTE: For -Nepalese individuals, multiply the result by 1.210. Chronic Kidney Disease: Estimated GFR < 60 mL/min/1.73m2 Severe Kidney Disease: Estimated GFR < 15 mL/min/1.73m2 Glucose Random 92 60-115 mg/dL Calcium 9.4 8.4-10.2 mg/dL Alpha Fetoprotein Reviewed date:03/09/2023 06:31:44 PM Interpretation: Performing Lab:[address] [phone] Notes/Report: Alpha Fetoprotein 5.1 <6.1 ng/mL This test was performed using the Jessica Richar chemiluminescent method. Values obtained from different assay methods cannot be used interchangeably. AFP levels, regardless of value, should not be interpreted as absolute evidence of the presence or absence of disease. THIS TEST WAS PERFORMED AT: [facility] [address] [place] [phone] DAVID ANN MD Liver Fibrosis Pnl Reviewed date:05/15/2023 11:09:09 PM Interpretation: Performing Lab:[address] [phone] Notes/Report: Liver Fibrosis Score 0.75 Liver Fibrosis Stage F4 Liver Fibrosis Interpretation SEE NOTE severe fibrosis Fibro Test Score (f) Metavir Score f>=0 and f<=0.21 : F0 (no fibrosis) f>0.21 and f<=0.27 : F0-F1 (no fibrosis) f>0.27 and f<=0.31 : F1 (minimal fibrosis) f>0.31 and f<=0.48 : F1-F2 (minimal fibrosis) f>0.48 and f<=0.58 : F2 (moderate fibrosis) f>0.58 and f<=0.72 : F3 (advanced fibrosis) f>0.72 and f<=0.74 : F3-F4 (advanced fibrosis) f>0.74 and f<=1.00 : F4 (severe fibrosis) Nec Inflam Act Score 0.08 Nec Inflam Act Grade A0 Nec Inflam Act Interpretation SEE NOTE no activity ActiTest Score (a) Metavir Score a>=0 and a<=0.17 : A0 (no activity) a>0.17 and a<=0.29 : A0-A1 (no activity) a>0.29 and a<=0.36 : A1 (minimal activity) a>0.36 and a<=0.52 : A1-A2 (minimal activity) a>0.52 and a<=0.60 : A2 (significant activity) a>0.60 and a<=0.62 : A2-A3 (significant activity) a>0.62 and a<=1.00 : A3 (severe activity) XWL-Tissu-9-Macroglobuli n 305 106-279 mg/dL FIB-Haptoglobin 84 43-212 mg/dL FIB-Apolipoprotein A1 160 94-176 mg/dL FIB-Total Bilirubin 1.3 0.2-1.2 mg/dL FIB-GGT 25 3-70 U/L FIB-ALT 13 9-46 U/L Reference ID [id number] Footnote SEE NOTE The reliability of results is dependent on compliance with the preanalytical and analytical conditions recommended by [employer]. The tests have to be deferred for: acute hemolysis, acute hepatitis, acute inflammation, extra hepatic cholestasis. The advice of a specialist should be sought for interpretation in chronic hemolysis and Gilbert's syndrome. The test interpretation is not validated in liver transplant patients. Isolated extreme values of one of the components should lead to caution in interpreting the results. In case of discordance between a biopsy result and a test, it is recommended to seek the advice of a specialist. The causes of these discordances could be due to a flaw of the test or to a flaw in the biopsy: i.e. a liver biopsy has a 33% variability rate for one fibrosis stage. FibroTest is interpretable for chronic hepatitis B and C, alcoholic and non alcoholic steatosis. ActiTest is interpretable for chronic hepatitis B and C. The performance characteristics have been determined by [employer] [facility]. It has not been cleared or approved by the U.S. Food and Drug Administration. Performance characteristics refer to the analytical performance of the test. [employer], [employer], the associated logo, [facility] and all associated [employer] eric are the registered trademarks of [employer]. All third democrat eric - (R) and (TM) - are the property of their respective owners. (C) 8828-6251 [employer]. All rights reserved. THIS TEST WAS PERFORMED AT: [employer] [address] [place] [address] BALBINA WATKINS MD,PHD,LATOSHA Hepatitis B Surface Antibody Reviewed date:03/07/2023 11:53:37 PM Interpretation: Performing Lab:[facility], [address] [place] [phone] Notes/Report: Hepatitis B Surface Antibody NONREACTIVE Nonreactive Nonreactive: < 8.00 mIU/mL Hepatitis BE Antibody Reviewed date:03/10/2023 12:38:23 PM Interpretation: Performing Lab:[facility], [address] [place] [phone] Notes/Report: Hepatitis BE Antibody NON-REACTIVE NON-REACTIVE For additional information, please refer to http://Ringly.iyzico/faq/FAQ2 02 (This link is being provided for informational/ educational purposes only.) THIS TEST WAS PERFORMED AT: [facility] [address] [place] [phone] DAVID ANN MD Hepatitis BE Antigen Reviewed date:03/10/2023 12:39:01 PM Interpretation: Performing Lab:[facility], [address] [place] [phone] Notes/Report: Hepatitis BE Antigen NON-REACTIVE NON-REACTIVE For additional information, please refer to http://Ringly.iyzico/faq/FAQ2 02 (This link is being provided for informational/ educational purposes only.) THIS TEST WAS PERFORMED AT: [facility] [address] [place] [phone] DAVID ANN MD Hepatitis B Viral DNA Qn Reviewed date:03/10/2023 12:39:31 PM Interpretation: Performing Lab:[facility], [address] [place] [phone] Notes/Report: Hepatitis B Viral DNA Qn - cp NOT DETECTED NOT DETECTED Log IU/mL THIS TEST WAS PERFORMED AT: [facility] [address] [place] [phone] DAVID ANN MD Hepatitis B Viral DNA Qn-IU/mL NOT DETECTED NOT DETECTED IU/mL HBSAG QUEST CONF Reviewed date:03/09/2023 06:32:02 PM Interpretation: Performing Lab:[facility], [address] [place] [phone] Notes/Report: HBsAG REACTIVE (Abnormal) For additional information, please refer to http://education.iyzico/faq/FAQ2 02 (This link is being provided for informational/ educational purposes only.) THIS TEST PERFORMED AT: [facility] [address] [place] [phone] DELIVERY COORDINATOR: DAVID ANN MD HBSAG Confirmation TNP REASON FOR REFERRAL No Information MEDICATIONS Medication SIG (Take, Route, Fr equency, Duration) Notes Start Date End Date Status Allopurinol 100 MG Oral for 90 Active Omeprazole 20 MG TAKE 1 CAPSULE BY MO UTH EVERY DAY IN THE MORNING for 90 Active Entecavir 0.5 MG TAKE 1 TABLET BY SINA TH 1 TIME A DAY ON AN EMPTY STOMACH. Active IMMUNIZATIONS Vaccine Route Administration Date Status Comme nts Influenza Unknown 10/27/2020 Administered Influenza Unknown 10/27/2021 Administered SOCIAL HISTORY Tobacco Use: Social History Observation [...] Never (0 point) Points 0 Interpretation Negative PROBLEMS Problem Type ICD Code Onset Dates Problem Status W/U Status Risk SNOMED Code Notes Problem Chronic viral hepatitis B without delta agent and without coma (B18.1) Active confirmed 40456076 Problem Chronic hepatitis B (B18.1) Active confirmed 61964417 Problem Other cirrhosis of liver (K74.69) Active confirmed Problem Gastroesophageal reflux disease with esophagitis, unspecified whether hemorrhage (K21.00) Active confirmed Gastroes ophageal reflux disease with esophagitis (disorder) (129433124) Problem Cirrhosis (K74.60) Active confirmed Cir rhotic (809338952) Problem Chronic hepatitis B no coma without hepatitis delta (B18.1) Active confirmed 42843040 Problem History of colon polyps (Z86.010) Active confirmed 771184527 Problem Cirrhosis of liver without ascites, unspecified hepatic cirrhosis type (K74.60) Active confirmed VITAL SIGNS Blood pressure diastolic 00 mm Hg 07/03/2023 Height 72 in 07/03/2023 Blood pressure systolic 00 mm Hg 07/03/2023 Weight 251 lbs 07/03/2023 BMI 34.04 kg/m2 07/03/2023 Encounters Encounter Location Date Provider Diagnosis [facility] [address] [place] [phone] 11/30/2022 Adam Beebe [facility] [address] [place] [address] 03/23/2023 Adam Beebe [facility] [address] [place] [address] 07/03/2023 Adam Beebe Chronic viral hepati tis B without delta agent and without coma B18.1 ; Other cirrhosis of liver K74.69 ; Gastroesophageal reflux disease with esophagitis, unspecified whether hemorrhage K21.00 ; History of colon polyps Z86.010 and Cirrhosis of liver without ascites, unspecified hepatic cirrhosis type K74.60 [facility] [address] [place] [phone] 02/21/2023 Adam Beebe Cirrhosis of liver without ascites, unspecified hepatic cirrhosis type K74.60 and Chronic hepatitis B B18.1 [facility] [address] [place] [address] 02/22/2023 Adam Beebe [facility] [address] [place] [address] 03/10/2023 Adam Beebe ASSESSMENTS Encounter Date Diagnosis Assessment Notes Treatment Notes Treatment Clinical Notes 07/03/2023 Other cirrhosis of liver (ICD-10 - K74.69) 07/03/2023 Chronic viral hepati tis B without delta agent and without coma (ICD-10 - B18.1) Continue the daily Entecavir technician terminal and repeater 02/21/2023 Cirrhosis of liver without ascites, unspecified hepatic cirrhosis type (ICD-10 - K74.60) 07/03/2023 Gastroesophageal ref lux disease with esophagitis, unspecified whether hemorrhage (ICD-10 - K21.00) 02/21/2023 Chronic hepatitis B (ICD-10 - B18.1) 07/03/2023 History of colon otis yps (ICD-10 - Z86.010) 07/03/2023 Cirrhosis of liver without ascites, unspecified hepatic cirrhosis type (ICD-10 - K74.60) PLAN OF TREATMENT Pending Test Test Name Order Date CHEM 7 PROFILE 05/27/2021 CHEM 7 PROFILE 05/02/2022 CHEM 7 PROFILE 01/27/2021 CHEM 7 PROFILE 11/01/2021 CHEM 7 PROFILE 03/15/2021 CHEM 7 PROFILE 02/21/2023 LIVER PROFILE 03/15/2021 LIVER PROFILE 02/21/2023 LIVER PROFILE 12/30/2020 LIVER PROFILE 01/27/2021 LIVER PROFILE 05/02/2022 LIVER PROFILE 09/19/2021 LIVER PROFILE 01/27/2021 LIVER PROFILE 11/01/2021 IRON + IBC (FE) 12/30/2020 CBC w DIFF 01/27/2021 CBC w DIFF 11/01/2021 CBC w DIFF 03/15/2021 CBC w DIFF 02/21/2023 CBC w DIFF 05/27/2021 CBC w DIFF 01/27/2021 CBC w DIFF 05/02/2022 CBC w DIFF 12/30/2020 PROTHROMBIN TIME (PT, INR) 01/27/2021 PROTHROMBIN TIME (PT, INR) 03/15/2021 PROTHROMBIN TIME (PT, INR) 05/27/2021 PROTHROMBIN TIME (PT, INR) 01/27/2021 PROTHROMBIN TIME (PT, INR) 05/02/2022 PROTHROMBIN TIME (PT, INR) 12/30/2020 PARTIAL THROMBOPLASTIN TIME (PTT) 2020 HEPATITIS B SURFACE ANTIGEN 05/27/2021 ALPHA-FETOPROTEIN,TUMOR MARKER 03/07/202 3 ALPHA-FETOPROTEIN,TUMOR MARKER 1 ALPHA-FETOPROTEIN,TUMOR MARKER 2 ALPHA-FETOPROTEIN,TUMOR MARKER 3 HEPATITIS B E ANTIBODY 05/02/2022 HEPATITIS B E ANTIBODY 01/27/2021 HEPATITIS B E ANTIBODY 12/30/2020 HEPATITIS B E ANTIBODY 03/15/2021 HEPATITIS B E ANTIBODY 02/21/2023 HEPATITIS B E ANTIGEN 05/02/2022 HEPATITIS B E ANTIGEN 01/27/2021 HEPATITIS B E ANTIGEN 12/30/2020 HEPATITIS B E ANTIGEN 03/15/2021 HEPATITIS B E ANTIGEN 02/21/2023 HEPATITIS B VIRAL DNA QUANT 05/02/2022 HEPATITIS B GENOTYPE 01/27/2021 FLUOR. ANTINUCLEAR AB SCREEN (LALITA) 05/2020 US ABDOMEN COMP WITH ELASTOGRAPHY 2021 US ABDOMEN COMP WITH ELASTOGRAPHY 2020 Prothrombin Time INR 02/21/2023 Prothrombin Time INR 11/01/2021 Ferritin 12/30/2020 Liver Fibrosis Pnl 02/21/2023 Liver Fibrosis Pnl 11/01/2021 Hepatitis B Surface Antibody 02/21/2023 Hepatitis BE Antibody 05/27/2021 Hepatitis BE Antigen 05/27/2021 Hepatitis B Viral DNA Qn 03/15/2021 Hepatitis B Viral DNA Qn 05/27/2021 Hepatitis B Viral DNA Qn 02/21/2023 Hepatitis B Viral DNA Qn 01/27/2021 Hepatitis B Viral DNA Qn 11/01/2021 Hepatitis Delta Antibody 01/27/2021 US abdomen comp w elastography 3 US abdomen comp w elastography 3 HIV Ab/Ag 01/27/2021 Hepatitis B Surface Antigen 02/21/2023 Future Test Test Name Order Date UPPER GI ENDOSCOPY 01/27/2021 Next Appt Details Provider Name:Adam Beebe , 02/06/2024 04:20:00 PM, [address] [place] [address], [facility], [place], [address], Insurance Providers Payer Name Payer Address Payer Phone Subscriber Number Group Number Insured Name Patient Relationship to Insured Coverage Start Date Coverage End Date MED[place]ARE OF [place] [address] [employer] [address] [phone] [id number] [facility] ADAM Garvey Self - patient is the insured [employer] ATT[employer] CLAIMS [address] [place] [address] [phone] [id number] ADAM REAGAN - patient is the insured MEDICAL (GENERAL) HISTORY Medical History History ICD Code Denies [place],DM,CVA,Lung disease,renal dise ase hx of kidney stones Kidney stones removed 12/2020-Dr. Soliz. Had an ESWL in 09/2021 Sleep apnea-uses CPAP. Arthritis in left hip. Denies [place],DM,CVA,Lung disease,renal dise ase. Chronic hepatitis B with a p ositive hepatitis B surface antigen, negative hepatitis B surface antibody, positive hepatitis B core IgG antibody, negative hepatitis B core IgM antibody, negative hepatitis C antibody, negative hepatitis A IgM antibody, CT scan in November 2020 describing changes consistent with cirrhosis and splenomegaly, liver fibrosis score of F4, positive hepatitis B E antigen, negative hepatitis B E Antibody, and an elevated hepatitis B DNA level of over 300 million IU/ml. He did have a complete liver workup which was otherwise negative in regard to any other etiologies of cirrhosis. He denies any history of intravenous drug use nor any other high risk behaviors. 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 Asymptomatic gallstones--pat paigent is aware and this was reviewed again at the 04/2022 OV Colonoscopies at [facility] with removal of polyps-most recent one was in 2018. Started the Baraclude for th e Hep B in 01/2021 with marked decrease in the Heb Viral DNA in 04/2021. EGD 01/2021 was negative for varices; it did show a small hiatal hernia, some changes of reflux esophagitis and gastritis. broken ankle right 02/2023 kidney stones 05/2023 Surgical History Surgery Date(Month/Year) Back surgery 04/2020 sciatic nerve Left hip replacement 04/[address] Norm chin 3 kidney stones Broken right ankle Dec 2023 cateracts
--- OUTSIDE RECORDS SUMMARY | 2023-11-07 15:29 | XMS_ITS ---
Author Organization [facility] Address [address] [place] [address] Care Team Providers Care Student Activities Director Name Role Phone Raji Amanda MD Primary Care Provider Unavaila Adam Paris Unavailable [phone] REASON FOR VISIT Patient presents today for chronic hep b Encounters Encounter Location Date Provider Diagnosis [facility] [address] [place] [address] 03/23/2023 Adam Beebe PLAN OF TREATMENT Next Appt Details Provider Name:Adam Beebe , 02/06/2024 04:20:00 PM, [address] [facility], [address], [place], [address],
--- OUTSIDE RECORDS SUMMARY | 2023-11-07 15:29 | XMS_ITS ---
Author Organization [facility] Address [address] [place] [address] Care Team Providers Care Home Care Physical Therapist Name Role Phone Raji Amanda MD Primary Care Provider Adam Moraes Unavailable [phone] Encounters Encounter Location Date Provider Diagnosis [facility] [address] [place] [address] 03/10/2023 Adam Beebe PLAN OF TREATMENT Next Appt Details Provider Name:Adam Beebe , 02/06/2024 04:20:00 PM, [address] [facility], [address], [place], [address],
== END 2023-11-07 16:00 | disposition home or self-care (01) ==
LOC: HO.HUSH 15:26
PROVIDERS: PCP Internal Medicine; Visit Provider Urology
DX: N20.0 Calculus of kidney (principal); R10.9 Unspecified abdominal pain; N13.30 Unspecified hydronephrosis
CPT/HCPCS: 99214

== ENCOUNTER → 2023-11-07 15:26 | Outpatient (BNVA) | payer MEDICARE, SELFPAY | PROVIDERS: PCP Internal Medicine; Visit Provider Urology ==

== ENCOUNTER 2023-11-22 07:04 | Outpatient (REF) | payer MEDICARE, SELFPAY ==
--- NOTE | ~2023-11-22 | CT_ITS ---
EXAMINATION: CT ABDOMEN AND PELVIS WITHOUT CONTRAST CLINICAL INFORMATION: Calculus of the kidney COMPARISON: CT dated April 30, 2023 TECHNIQUE: Multidetector volumetric imaging was performed from the superior aspect of the liver through the pubic symphysis. Sagittal and coronal reformatted images were obtained on the technologist's workstation. This CT examination was performed using dose optimization techniques as appropriate, variously including the following: *Automated exposure control *Adjustment of mA and/or kV according to patient size (this includes techniques or standardized protocols for targeted exams where dose is matched to indication/reason for exam; i.e. extremities or head) *Use of iterative reconstruction technique DLP: 822 mGy-cm FINDINGS: Limited evaluation of the intra-abdominal organs and vascular structures due to lack of IV contrast. LIVER, GALLBLADDER, AND BILIARY TREE: Liver measures 15 cm. Nodular surface. Prominent caudate lobe. Less than 2 cm round hypodensities in the left hepatic and right hepatic lobes. There is a 1.6 cm calcification within the lumen of the gallbladder. No pericholecystic fluid collection. No gallbladder wall thickening. No intrahepatic or extrahepatic biliary ductal dilatation. PANCREAS: No peripancreatic fluid collections. No main pancreatic ductal dilatation. SPLEEN: 12 cm. ADRENAL GLANDS: No nodular lesions. KIDNEYS AND URETERS: Multiple calculi measuring less than 4 mm throughout the pelvicalyceal system, bilaterally more conspicuous on the right kidney and focal in the lower pole of the left kidney. There is no calcifications within the ureters or the urinary bladder. BLADDER: Fluid-filled and nearly collapsed. GASTROINTESTINAL TRACT: Numerous diverticula in the sigmoid colon and to a lesser extent descending colon. No intestinal obstruction pattern. No ascites. No pneumoperitoneum. No pneumatosis intestinalis. I do not see the appendix. ABDOMINAL WALL: Small fat-containing umbilical hernia. Small fat-containing inguinal hernias. LYMPH NODES: No gross lymphadenopathy. VASCULAR: Mixed plaques throughout the abdominal aorta wall, iliac arteries, the origin of the mesenteric arteries and main renal arteries as well as the splenic artery. . OSSEOUS STRUCTURES: [Castellvi type I sacralization of multilevel thoracolumbar spondylosis. Large Schmorl node in the inferior endplate L2. Metallic prosthesis, left hip resulting in beam hardening artifact.. Calcified plaques in the coronary arteries. Calcified plaques in the thoracic aorta. CT/CT kidney stone IMPRESSION: Bilateral nonobstructing nephrolithiasis. Resolved/past calculus in the left ureter. No hydronephrosis. Concerning for hepatocellular disease/cirrhosis. Cholelithiasis. Low density lesions in the liver. Diverticular disease, sigmoid colon. Fleischner guidelines were followed. Electronically signed by: Valentín Pereira MD 12/28/2023 12:33 PM EDT
== END 2023-11-22 07:05 | disposition home or self-care (01) ==
LOC: HO.CT 07:04
PROVIDERS: PCP Internal Medicine; Visit Provider Urology
DX: N20.0 Calculus of kidney (principal); R10.9 Unspecified abdominal pain
CPT/HCPCS: 74176

== ENCOUNTER → 2023-11-22 07:05 | Outpatient (BNV) | payer MEDICARE, SELFPAY | PROVIDERS: PCP Internal Medicine; Visit Provider Radiology Diagnostic Radiology | DX: N20.0 Calculus of kidney (principal) | CPT/HCPCS: 74176 ==

== ENCOUNTER 2024-01-09 10:40 | Outpatient (AMB) | payer MEDICARE, SELFPAY ==
[2024-01-09 10:46] VITALS: BP 162/84; PULSE 85; O2SAT 96; BMI 34.2
--- NOTE | 2024-01-09 10:46 | A.OFFPC_ITS ---
Vital Signs 01/09/24 10:46 Height 6 ft Weight 252 lb BMI 34.2 BP 162/84 H Blood Pressure Location Lt brachial Position Sitting Pulse 85 Pulse Source Pulse Oximeter Pulse Oximetry (%) 96 Oxygen Delivery Method Room Air Intake Visit Reasons: eye surgery with [facility] end december Pouncer Required: No Accompanied by: Self / Same As Patient Allergies No Known Allergies Allergy (Verified 01/09/24 10:47) Medication List - Last Reconciled 01/10/24 by Raji Amanda MD allopurinol 100 mg PO .QOD 90 days clonazepam 0.5 mg PO BID entecavir 1 tab PO DAILY omeprazole 20 mg PO DAILY@0630 vitamin B6-vitamin E-magnesium 100 tabs PO DAILY Tobacco use date assessed: 01/09/24 Fall risk assessment: 1 Fall in past year (broken ankle) Last assessed Fall Risk: 01/09/24 Dental Screening Dental Screen Date: 01/09/24 Did you have a dental visit in the last 12 months?: Yes Did you have a dental problem in the last 6 months where you did not have access to dental care?: No Was dental information given to patient?: Yes HPI eye surgery with [facility] end december HPI Details having cataract surgery; has gout on rx; no history of CAD [facility] Medical History (Updated 01/10/24 @ 09:50 by Raji Amanda MD) Preop exam for internal medicine Cirrhosis GERD (gastroesophageal reflux disease) Kidney stone Hepatitis B COVID-19 vaccine series completed Sleep apnea BPH (benign prostatic hyperplasia) Obesity Arthritis of left hip Anxiety Hip pain Surgical History History of total left hip arthroplasty History of lithotripsy H/O colonoscopy History of back surgery History of appendectomy History of tonsillectomy Family History Father No problems noted. Mother No problems noted. Daughter No problems noted. 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 1. Little interest or pleasure in doing things: not at all 2. Feeling down, depressed, or hopeless: not at all 3. Trouble falling or staying asleep, or sleeping too much: not at all 4. Feeling tired or having little energy: not at all 5. Poor appetite or overeating: not at all 6. Feeling bad about yourself - or that you are a failure or have let yourself or your family down: not at all 7. Trouble concentrating on things, such as reading the newspaper or watching television: not at all 8. Moving or speaking so slowly that other people could have noticed. Or the opposite - being so fidgety or restless that you have been moving around a lot more than usual: not at all 9. Thoughts that you would be better off or of hurting yourself in some way: not at all Total score: 0 Depression Screening Interpretation: Negative Depression Screening Done: Yes 46973 - PHQ-9 Billing: Yes Source: Developed by Drs. Gene Villafuerte, Renu Acharya, Crescencio Corbin and colleagues, with an educational chris from [employer]. Thrive Questionnaire Date Thrive assessed: 01/09/24 I am a: Patient What is your living situation today?: I have a steady place to live Within the past 12 months, did the food you bought not last and you didn't have the money to get more?: Never true Within the past 12 months, did you worry whether your food would run out before you got money to buy more?: Never true THRIVE Score: 0 AUDIT C Alcohol Use Questionnaire (AUDIT-C) 1. How often do you have a drink containing alcohol?: 2-4 times a month 2. How many drinks containing alcohol do you have on a typical day when you are drinking?: 1 or 2 3. How often do you have six or more drinks on one occasion?: Never Total Score: 2 MARCO ANTONIO-7 AMB Questionnaire MARCO ANTONIO-7 Date MARCO ANTONIO - 7 assessed: 01/09/24 Feeling nervous, anxious, or on edge: 0 = Not at all Not being able to stop or control worryin = Not at all Worrying too much about different things: 0 = Not at all Trouble relaxin = Not at all Being so restless that it is hard to sit still: 0 = Not at all Becoming easily annoyed or irritable: 0 = Not at all Feeling afraid as if something awful might happen: 0 = Not at all Total MARCO ANTONIO-7 score (0-4 normal; 5-9 mild; 10-14 moderate; 15-21 severe): 0 Source: Developed by Drs. Gene Villafuerte, Renu Acharya, Crescencio Corbin and colleagues, with an educational chris from [employer]. MARCO ANTONIO-7 Assessment Billing MARCO ANTONIO-7 Assessment Tool: MARCO ANTONIO-7 Assessment 15692 Review of Systems Const Denies chills, Denies fatigue, Denies headache(s) and Denies weight loss Eyes Denies change in vision, Denies diplopia and Denies eye pain ENT Denies vertigo, Denies dizziness, Denies headache(s) and Denies nasal discharge Card Denies chest pain, Denies rapid heart rate and Denies dyspnea on exertion Resp Denies chest congestion, Denies cough, Denies pain with cough and Denies dyspnea on exertion GI Denies abdominal pain, Denies hematochezia and Denies change in bowel habits Musc Denies myalgias, Denies arthralgias and Denies joint swelling Skin/Breast Denies lesions and Denies unusual bruising Neuro Denies vertigo, Denies dizziness, Denies headache(s) and Denies focal weakness Endo Denies fatigue Physical exam (Primary Care) Vital Signs: Last Vital Signs Pulse 85 01/09/24 10:46 BP 162/84 H 01/09/24 10:46 Pulse Ox 96 01/09/24 10:46 Oxygen Delivery Method Room Air 01/09/24 10:46 BMI result Body Mass Index 34.2 Tobacco/Smoking Status: Tobacco use Status Tobacco use date assessed 01/09/24 01/09/24 10:54 Patient Tobacco Use Status Never used Tobacco 01/09/24 10:54 Tobacco use type Cigarette 01/09/24 10:54 e-Cigarette/Vaping Use Never Used 01/09/24 10:54 PHQ-9: PHQ-9 Score PHQ-9: Total score 0 01/09/24 11:07 Depression Screening Interpretation: Negative Thrive Assessment: Date of Thrive Assessment Date Thrive assessed 01/09/24 01/09/24 10:54 Const General: cooperative, healthy appearing and no acute distress Orientation/consciousness: oriented to person, oriented to place and oriented to time [facility] Head: Yes normal to inspection, Yes normocephalic and Yes atraumatic Mouth: Normal oral and palatal mucosa present and tongue normal Throat: Yes posterior oropharynx normal and Yes uvula midline Eyes General: appearance normal, both eyes and all related structures Neck Neck: Yes normal visual inspection, Yes full ROM and Yes no lymphadenopathy Thyroid: Thyroid normal Carotids: normal carotid upstroke Chest Chest palpation & inspection: normal inspection of the chest Resp Effort & Inspection: normal respiratory effort and able to speak in complete sentences Auscultation: clear to auscultation bilaterally Cardio Jugular venous distension: no JVD Palpation: normal PMI Rate: regular rate Rhythm: regular rhythm Heart sounds: S1 normal heart sound present and S2 normal heart sound present GI Inspection: Yes normal to inspection Palpation (GI): Soft to palpation and No hepatosplenomegaly present Auscultation: normal bowel sounds General: Yes no CVA tenderness Back/Spine/Pelvis Back: no CVA tenderness Skin General skin exam: no rashes or lesions noted Neuro General: oriented to person, oriented to place and oriented to time Extrem General: Yes normal to inspection and Yes full ROM Office Procedures Flu Questionnaire Does the patient have a severe egg allergy?: No Does the patient have severe life threatening allergies?: No Does the patient have a fever or illness today?: No Has the patient ever had Guillain-[place] Syndrome?: No Has the patient ever had any past reaction to a flu shot?: No Immunizations Fluarix Triv [id number] (PF) 45 mcg (15 mcg x 3)/0.5 mL IM syringe Performing Provider: Raji Amanda MD [facility] Administered by: Faith Davis LPN on 01/09/24 11:06 Dose Route Admin Location Dispensed Lot Number Expiration Date [facility] Manager Terminal 0.5 mL IM Left Deltoid 0.5 mL [id number] 08/25/24 41069-016-05 [employer] VIS Given Date VIS Provided VIS Publication Date 01/09/24 Single Vaccine 20 Eligibility Eligibility Date Funding Source Not [facility] Eligible 01/09/24 Private Coding Level of Care Code Est Pt Level 4 (09809) Diagnoses Preop exam for internal medicine Z01.818 Obstructive sleep apnea G47.33 Additional Codes MARCO ANTONIO-7 Assessment Billing - MARCO ANTONIO-7 Assessment Tool: MARCO ANTONIO-7 Assessment 43253 ([id number]) PHQ-9 - 60915 - PHQ-9 Billing: Yes ([id number]) Assessment & Plan Assessment & Plan (1) Preop exam for internal medicine: Code(s): Z01.818 - Encounter for other preprocedural examination Category: Medical Plan: low risk for cardiovascular complications; cleared for surgery (2) Obstructive sleep apnea: Code(s): G47.33 - Obstructive sleep apnea (adult) (pediatric) Category: Medical Plan: stable; uses cpap Orders: Orders Influenza [id number] Immunization 01/09/24 Z23 - Encounter for immunization
== END 2024-01-09 11:04 | disposition home or self-care (01) ==
PROVIDERS: PCP Internal Medicine; Visit Provider Internal Medicine
DX: Z01.818 Encounter for other preprocedural examination (principal); G47.33 Obstructive sleep apnea (adult) (pediatric)

== ENCOUNTER → 2024-01-09 10:40 | Outpatient (BNVA) | payer MEDICARE, SELFPAY | PROVIDERS: PCP Internal Medicine; Visit Provider Internal Medicine | DX: Z01.818 Encounter for other preprocedural examination (principal); Z23 Encounter for immunization; G47.33 Obstructive sleep apnea (adult) (pediatric) | CPT/HCPCS: 90471; 90656; 96127; 99212 ==

== ENCOUNTER 2024-01-14 05:56 | Day surgery (SDC) | payer MEDICARE, SELFPAY ==
[2024-01-10 06:39] VITALS: BMI 34.2
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
[2024-01-14 07:14] VITALS: BP 115/91; PULSE 80; RESP 16; TEMP 36.7; O2SAT 95
[2024-01-14] MEDS: Tetracaine HCl/PF 0.5% Oph Sol 4 ML DROPS 1 DROP EYE-LEFT (07:15)
[2024-01-14] MEDS: Cyclopentolate 1 % Ophth Sol 2 ML DRPBTL 1 DROP EYE-LEFT ×3 (07:20→07:39)
[2024-01-14] MEDS: Ketorolac Tromethamine 0.5% Op 10 ML DROPS 1 DROP EYE-LEFT ×3 (07:22→07:40)
[2024-01-14] MEDS: Tropicamide 1 % Ophth Sol 3 ML BTL 1 DROP EYE-LEFT ×3 (07:27→07:45)
[2024-01-14] MEDS: Phenylephrine HCL 2.5% Oph SoL 2 ML BOTTLE 1 DROP EYE-LEFT ×3 (07:29→07:46)
[2024-01-14] MEDS: Lactated Ringers 500 ML 50 ML IV (07:30)
--- NOTE | 2024-01-14 08:13 | MHC.SHP ---
Pre-Procedural Eval Section A - 24 Hr Update-Section A only Date of Service: 01/14/24 The patient is an INPATIENT: No Changes since office visit: No Cold of Flu in the past 2 weeks, No New Medical Problems, No Changes in Medication and No Patient answered all questions The patient has been examined within 24 hours of the surgical procedure. The History & Physical has been completed within 30 days and I have reviewed it.: Yes Section B - Complete if H&P > 30 days Chief Complaint: Age-related nuclear cataract, left eye Allergies: Allergies Allergy/AdvReac Type Severity Reaction Status Date / Time No Known Allergies Allergy Verified 01/09/24 10:47 Plan Diagnosis/Plan: Unchanged I have reviewed the history and physical and performed a pertinent physical examination on my patient. No changes have occurred unless specified. Time Spent With Patient Time: Total time managing care of this patient today ____ minutes.
--- NOTE | 2024-01-14 08:13 | HO.PNOPHT ---
Ophthalmology Procedure Procedure Date of Service: 01/14/24 Ophthalmology Viscoelastic: Healon Duet Dual Pack Pro Ophthalmology Lenses: IOL Acrysof MP - [id number] (20.5) Procedure Notes: PREOPERATIVE DIAGNOSIS: Decreased visual acuity left eye secondary to cataract POSTOPERATIVE DIAGNOSIS: Same PROCEDURE: Left cataract extraction with intraocular lens insertion SURGEON: Jason Matthews M.D. ANESTHESIA: Topical/MAC ESTIMATED BLOOD LOSS: None COMPLICATIONS: None After obtaining informed consent, the patient was brought to the operation room suite and placed in the supine position. After adequate sedation per anesthesia, topical drops of Tetracaine were given to the left eye. The eye was then prepped and draped in the usual sterile fashion. The operating room microscope was then positioned over the operative eye and a lid speculum placed. A paracentesis was created. Viscoelastic was then instilled into the anterior chamber. A three plane incision was then created temporally, utilizing a 2.85 mm keratome. Capsulotomy forceps were then utilized to create a circular tear capsulotomy. Hydrodissection and hydrodelineation were carried out until adequate mobilization of the nucleus occurred. Phacoemulsification was then utilized to remove the dense central nucleus followed by removal of the cortical material utilizing the automated aspiration irrigation unit. Viscoat elastic was instilled into the posterior capsular bag followed by placement of a posterior chamber intraocular lens without difficulty. The residual Viscoat elastic was then removed utilizing the automated IA machine. The wound was check and found to be watertight. The patient tolerated the procedure well and the lid speculum was removed. Intracameral injection of Vigamox 0.1 mL followed by a subtenon injection of Kenalog-40 0.2 mL were administered. The patient will be seen in the a.m.
[2024-01-14 08:36] VITALS: BP 149/89; PULSE 76; RESP 17; TEMP 36.4; O2SAT 99
--- OUTSIDE RECORDS SUMMARY | 2024-01-18 12:46 | XMS_ITS ---
Author Organization [facility] Address [address] [place] [address] Care Team Providers Care Affiliate Marketing Coordinator Name Role Phone Raji Amanda MD Primary Care Provider Adam Moraes Unavailable [phone] ALLERGIES No Known Allergies REASON FOR VISIT Patient presents today for chronic hep b MEDICATIONS Medication SIG (Take, Route, Fr equency, Duration) Notes Start Date End Date Status Allopurinol 100 MG Oral for 90 Active Omeprazole 20 MG TAKE 1 CAPSULE BY [facility] EVERY DAY IN THE MORNING for [...] 07/03/2023 Encounters Encounter Location Date Provider Diagnosis [facility] [address] [place] [address] 07/03/2023 Adam Beebe Chronic viral hepati tis [...] (ICD-10 - B18.1) Continue the daily Entecavir usp 07/03/2023 Other cirrhosis of liver (ICD-10 - [...] and without coma Continue the daily Entecavir usp Next Appt Details Follow Up: 01/2024, Reason: Provider Name:Adam Beebe , 02/06/2024 04:20:00 PM, [address], [address], [place], [address], Progress Notes * Examination Category Sub-Category Detail [...]
--- OUTSIDE RECORDS SUMMARY | 2024-01-18 12:46 | XMS_ITS ---
Author Organization [facility] Address [address] [place] [address] Care Team Providers Care Throw Out Clerk Name Role Phone Raji Amanda MD Primary Care Provider Unavaila Adam Paris Unavailable [phone] REASON FOR VISIT Patient presents today for chronic hep b Encounters Encounter Location Date Provider Diagnosis [facility] [address] [place] [address] 03/23/2023 Adam Beebe PLAN OF TREATMENT Next Appt Details Provider Name:Adam Beebe , 02/06/2024 04:20:00 PM, [address], [address], [place], [address],
--- OUTSIDE RECORDS SUMMARY | 2024-01-18 12:47 | XMS_ITS ---
Author Organization [facility] [place] Address [address] [place] [address] Care Team Providers Care Supervisor Plastering Name Role Phone Raji Amanda MD Primary Care Provider Unavaila Sha Gaines Unavailable [phone] Allergies No Known Allergies REASON FOR VISIT Fungal Nails Medications Medication SIG (Take, Route, Fr equency, Duration) [...] Once a day for 30 day(s) Active Social History Tobacco Use: Social History Observation Description Date Details (start date - stop date) Never Smoker NA - NA Tobacco Use/Smoking Question Answer Notes Are you [...] Are you an other tobacco user? No Problems Problem Type SNOMED Code ICD Code Onset Dates Problem Status W/U Status Risk Notes Problem Tinea unguium ([id number]) Tinea unguium (B35.1) Active confirmed Vital Signs Height 6ft in 02/22/2023 Weight 261 lbs 02/22/2023 BMI 35.39 kg/m2 02/22/2023 Encounters Encounter Location Date Provider Diagnosis [facility] [place] [address] [place] [id number] 02/22/2023 Sha Daugherty Tinea unguium B35.1 ; Pain in right toe(s) M79.674 and Pain in left toe(s) M79.675 Assessments Encounter Date Diagnosis (ICD Code) Assessment Notes Treatment Notes Treatment Clinical Notes 02/22/2023 Tinea unguium (ICD-10 - B35.1) 02/22/2023 Pain in right toe(s) (ICD-10 - M79.674) 02/22/2023 Pain in left toe(s) (ICD-10 - M79.675) Plan Of Treatment Medication Medication Name Sig Start Date Stop Date Notes Ciclopirox 0.77 % 1 application to aff ected area Externally Twice a day to effected nails for 30 days 02/22/2023 Next Appt Details Follow Up: prn, Reason: Progress Notes * Gene CORDERO ADOB:[birth year] (77 yo M)Acc No.[id number]:02/22/2023 Progress Note Patient:?Gene Cordero Provider:?Sha Daugherty DPM :1945???Age:77 Y???Sex:Male Sanjeev e:02/22/2023 Address:[address] [place] [phone] Pcp:Raji Amanda MD Subjective: * Chief Complaints: * ???Fungal Nails * HPI: ???Painful Nails:?Nature:?aching, tender, discolored.?Location:?Both feet.?Duration:?1 year or more.?Aggrevated by:?shoegear causing difficulty standing/walking.?Treatments:?none.? * ROS:?General/Constitutional:?Nausea?denies.?Vomiting?denies.?Hunger Thirst?denies.?Loss appetite?denies.?Chills?denies.?Fatigue?denies.?Fever?denies.?Night Sweats?denies.?Unexplained weight loss?denies.?Unexplained weight gain?denies.?HEENTM:?Dentures?denies.?Dizziness?denies.?Glasses/contacts?admits.?Retinopathy?de nies.?Blurred/double vision?denies.?TMJ?denies.?Discharge/drainage?denies.?Implants?denies.?Sore throat?denies.?Dental implants?denies.?Hard of hearing ?admits.?Difficulty chewing/swallowing/speaking?denies.?Nose bleeds?denies.?Sore mouth?denies.?Respiratory:?On Oxygen?denies.?Pneumonia/pleurisy?denies.?Bronchitis?denies.?Emphysema?denies.?C oughing?denies.?Cough blood?denies.?Shortness of breath?denies.?Wheezing?denies.?Cardiovascular:?Pacemaker?denies.?MVP?denies.?WPW?denies.?CHF?denies.?Heart attack?denies.?Septal defect?denies.?Rapid beat?denies.?Chest pain ?denies.?Atrial Fib.?denies.?Murmur/Palpitations?denies.?Gastrointestinal:?Hemorrhoids?denies.?Stomach/Abdominal pain?denies.?Dark blood stool?denies.?Irritable bowel ?denies.?Constipation?denies.?Diarrhea?denies.?Hematology:?Swelling?admits.?Clots?denies.?Varicose Veins?denies.?Bruising?denies.?Bleeding problem?denies.?Genitourinary:?Blood urine?denies.?Frequent/Painfu/urination/bladder control?denies.?Kidney stones?denies.?Infection (UTI)?denies.?Nephropathy?denies.?sex trans dis (STD)?denies.?Prostate?denies.?Musculoskeletal:?Hammertoes?denies.?Bunions?denies.?Back Pain?denies.?Muscle Cramps/ Resting?denies.?Muscle cramps / walking?denies.?Generalized aches and pains?denies.?Weakness?denies.?Integ.:?Macias?denies.?Scars?denies.?Corns/calluses?denies.?Ingrown nails?admits.?Painful nails?admits.?Open Sores?denies.?Rashes?denies.?Neurologic:?Difficulty sleeping?denies.?Brain disorder?denies.?Numbness?denies.?Balance trouble?denies.?Confusion?denies.?Fainting/blackouts?denies.?Tingling?denies.?Tr emors?denies.? * Medical History:? * Surgical History:?left hip r eplacement 05/03/21 * Hospitalization/Major Diagno stic Procedure:?No Hospitalization History. * Family History:?Mother: dece ased.?Father: .? * Social History:?Tobacco Use:?Tobacco Use/Smoking?Are you a:?nonsmoker ?Tobacco use other than smoking?Are you an other tobacco user??No ???Drugs/Alcohol:?Drugs?Have you used drugs other than those for medical reasons in the past 12 months??No ?Alcohol Screen?Did you have a drink containing alcohol in the past year??Yes ?How often did you have a drink containing alcohol in the past year??Monthly or less (1 point) ?Points?1 ?Interpretation?Negative ???Miscellaneous:?Caffeine: yes, frequency:. ?Children: yes. ?Exercise: yes, 4x a week. ?Marital status: partner. ?Occupation: Retired. * Medications:?TakingVitamin B 6 100 MG Tablet 1 tablet Orally Once a dayAllopurinol 100 MG Tablet 1 tablet Orally Once a dayEntecavir 0.5 MG Tablet as directed Orally Omeprazole 20 MG Capsule Delayed Release as directed Orally Taking Vitamin B6 100 MG Tablet 1 tablet Orally Once a dayTaking Allopurinol 100 MG Tablet 1 tablet Orally Once a dayTaking Entecavir 0.5 MG Tablet as directed Orally Taking Omeprazole 20 MG Capsule Delayed Release as directed Orally Not-Taking/PRNOmeprazole 20 MG Capsule Delayed Release 1 capsule 30 minutes before morning meal Orally Once a dayEntecavir 0.5 MG Tablet 1 tablet on an empty stomach Orally Once a dayAllopurinol 100 MG Tablet 1 tablet Orally Once a dayMedication List reviewed and reconciled with the patientNot-Taking/PRN Omeprazole 20 MG Capsule Delayed Release 1 capsule 30 minutes before morning meal Orally Once a dayNot-Taking/PRN Entecavir 0.5 MG Tablet 1 tablet on an empty stomach Orally Once a dayNot-Taking/PRN Allopurinol 100 MG Tablet 1 tablet Orally Once a dayMedication List reviewed and reconciled with the patient * Allergies:?N.K.D.A.yes[Aller gies Verified] Objective: * Vitals:?Ht: 6ft, Wt: 261, BM I: 35.39, Shoe size: 11, Wt-k.39 kg. * Examination: ???Nails: ?NAILS are:?Elongated, overgrown, dystrophic, lytic, greater than 3mm thick, discolored and friable with crumbly malodorous subungual debris, with pain on palpation, T4, T5.? Assessment: * Assessment: 1.?Tinea unguium - B35.1 (Pr imary), Chronic problem, Stable (1=3,2=4),Rx Management (4)?2.?Pain in right toe(s) - M79.674?3.?Pain in left toe(s) - M79.675? Plan: * Treatment: * Procedure Codes:? * Preventive Medicine:? ??Counseling:?Discussion:?-13: Office or other outpatient visit for the evaluation and management of an established patient, which required a medically appropriate history and/or examination and LOW level of DECISION MAKING for: 1 STABLE ACUTE UNCOMPLICATED PROBLEM, 2 OR MORE MINOR PROBLEMS, OR 1 STABLE CHRONIC PROBLEM, THAT POSE(S) A LOW RISK FOR MORBIDITY/MORTALITY. The visit on the day of the encounter encompassed interpreting the data and educating the patient as to the nature of their condition, treatment options available according to their individual PMH, meds, allergies, and overall health/living conditions, as well as any potential risks or complications that may occur from a failure to adhere to, and participate in, the recommended course of therapy. The discussion included a complete verbal, and/or written explanation of the examination results, any x-rays taken, the proposed diagnosis, and outline of the treatment plan. A schedule for future care needs was also explained. The patient verbalized an understanding of the instructions at this time and agreed to be an active participant in their treatment. If the patient should think of any questions or concerns after the visit, I have encouraged the patient to call the office.?Fungal Nail Counseling:?The patient was counseled on the diagnosis, potential etiologies (including, but not limited to, environmental factors, genetic, immune deficiency), and the multiple treatment options for Onychomycosis. We discussed the risks and benefits of each option from performing no treatment, to ultraviolet light shoe treatment, to laser nail treatment, to applying topical antifungals, to taking oral antifungal medication, to surgical removal of the involved nail(s) with or without performing a matricectomy, or any combination thereof. We discussed the advantages and disadvantages of each of possible treatment and importance for adherence to all the recommended therapies for optimum success. This includes the necessity for weekly emery board self nail home debridements, and control the nail and skin environment as much as possible by only using a fresh, dry pair of shoes/socks each day, as well as keeping the skin as dry as possible through the use of sprays/powders if necessary. The patient was instructed to discard the emery board after use to prevent reinfection of the involved nail(s). We discussed the mycological and visual clinical effectiveness of topical vs oral antifungal treatments as well as each ones potential side effects and/or any patient- specific medication interactions. We discussed the reasons behind the important requirement of regular liver function testing with oral antifungal therapy for safety. Patient questions regarding use, dosage, successful outcomes, blood tests, and possible pharmaceutical interactions were reviewed and the patient verbalized that all answers were clearly understood, The Pt prefers topical treatment, Ciclopirox 0.77 gel was Rxed. Apply as directed to nails twice daily.? * Follow Up:?prn * Images: * Sign off status: Completed true * Provider:?Sha Daugherty DPM Date:?2022 Generated for Lauri castillo/Marya/Alban on:?01/18/2024 12:47 PM EST History and Physical Notes * HPI (History of Present Illness) Category Sub-Category Detail Notes Painful Nails Aggravated by: shoegear causing difficulty standing/walking Duration: 1 year or more Location: Both feet Nature: aching, tender, disc olored Treatments: none Examination Category Sub-Category Detail Notes Nails NAILS are: Elongated, overg rown, dystrophic, lytic, greater than 3mm thick, discolored and friable with crumbly malodorous subungual debris, with pain on palpation, T4, T5
--- OUTSIDE RECORDS SUMMARY | 2024-01-18 12:47 | XMS_ITS ---
Author Organization [facility] Address [address] [place] [address] Care Team Providers Care Manufacturer Name Role Phone Raji Amanda MD Primary Care Provider Unavaila Sha Gaines Unavailable [phone] REASON FOR VISIT Fungal Nails Medications Medication [...] Once a day for 10 day(s) Not-Taking Social History Tobacco Use: Social History Observation [...] Are you an other tobacco user? No Vital Signs Height 6ft in 10/15/2023 Weight 248 lbs 10/15/2023 BMI 33.63 kg/m2 10/15/2023 Encounters Encounter Location Date Provider Diagnosis [facility] [place] [address] [place] [id number] 10/15/2023 Sha Willow Tinea unguium B35.1 ; [...] * Gene CORDERO ADOB:[birth year] (77 yo M)Acc No.[id number]:10/15/2023 Progress Note Patient:?ItzGene campbell Provider:?Sha Daugherty DPM :1945???Age:77 Y???Sex:Male Sanjeev e:10/15/2023 Address:[address] [place], [place] [id number] Pcp:Raji Amanda MD Subjective: * Chief Complaints: * ???Fungal Nails * HPI: ???Painful Nails:?Nature:?aching, tender, discolored.?Location:?Both feet.?Duration:?1 year or more.?Aggravated by:?shoegear causing difficulty standing/walking.?Treatments:?Ciclopirox topical gel , since , ,?relates incomplete sporatic adherence to recom tx , denies any adverse side effects to medication , (i.e. adjacent periungual skin irritation, inflammation, erosion).? * ROS:?General/Constitutional:?Nausea?denies.?Vomiting?denies.?Hunger Thirst?denies.?Loss appetite?denies.?Chills?denies.?Fatigue?denies.?Fever?denies.?Night Sweats?denies.?Unexplained weight loss?denies.?Unexplained [...] History:? * Surgical History:?left hip r eplacement 05/03/21ankle surgery - Fracture ORIF, Right 04/2023vein surgery 05/2023 * Hospitalization/Major Diagno stic Procedure:?[facility], Broken ankle 04/2023, 05/2023[facility] - Kidney stones 05/2023 * Family History:?Mother: dece ased.?Father: .?Spouse: alive.? * Social History:?Tobacco Use:?Tobacco Use/Smoking?Are you a:?nonsmoker ?Additional Findings: Tobacco Non-User?Current non-smoker ?Tobacco use other than smoking?Are you an [...] week. ?Marital status: partner. ?Occupation: Retired. * Medications:?TakingAllopurin ol 100 MG Tablet 1 tablet Orally Once a dayEntecavir 0.5 MG Tablet as directed Orally Omeprazole 20 MG Capsule Delayed Release as directed Orally Vitamin B6 100 MG Tablet 1 tablet Orally Once a dayCiclopirox 0.77 % Gel 1 application to affected area Externally Twice a day to effected nailsTaking Allopurinol 100 MG Tablet 1 tablet Orally Once a dayTaking Entecavir 0.5 MG Tablet as directed Orally Taking Omeprazole 20 MG Capsule Delayed Release as directed Orally Taking Vitamin B6 100 MG Tablet 1 tablet Orally Once a dayTaking Ciclopirox 0.77 % Gel 1 application to affected area Externally Twice a day to effected nailsNot-Taking/PRNOmeprazole 20 MG Capsule Delayed Release 1 capsule [...] reviewed and reconciled with the patient * Allergies:?yes[Allergies Vj ified] Objective: * Vitals:?Ht: 6ft, Wt:248, BMI : 33.63, Shoe size:11, Wt-k.49 kg. * Examination: ???Nails: ?NAILS are:?STILL, Elongated, overgrown, dystrophic, lytic, greater than 3mm thick, discolored and friable with crumbly malodorous subungual debris, with pain on palpation, NOW ALSO T3,?T4, T5.? Assessment: * Assessment: 1.?Tinea unguium - B35.1 (Pr imary), Chronic problem, Stable (1=3,2=4),Rx Management (4),Response to treatment - Unresolved?2.?Pain in right toe(s) - M79.674?3.?Pain in left [...] patient to call the office.?Fungal Nail Counseling:?The Pt prefers to cont topical treatment, Ciclopirox 0.77 gel as Rxed. Apply as directed to nails twice daily, Nail debridement performed extensively to reduce/remove overall nail length, girth, thickness, subungual debris, and necrotic tissue, by manual and electrical means through the use of a nail nipper and/or dremel, to more viable healthy nail plate or bed tissue. Silver nitrate used for any petechial bleeding as necessary.? * Follow Up:?prn * Images: * Sign off status: Completed true * Provider:?Sha Daugherty DPM Date:?2023 Generated for Lauri castillo/Marya/Alban on:?01/18/2024 12:47 PM [...] (i.e. adjacent periungual skin irritation, inflammation, erosion) Examination Category Sub-Category Detail Notes Nails NAILS are: STILL, Elongated , overgrown, dystrophic, lytic, greater than 3mm thick, discolored and friable with crumbly malodorous subungual debris, with pain on palpation, NOW ALSO T3, T4, T5
--- OUTSIDE RECORDS SUMMARY | 2024-01-18 12:47 | XMS_ITS ---
Author Organization [facility] Address [address] [place] [address] Care Team Providers Care Hotel Registration Clerk Name Role Phone Raji Amanda MD Primary Care Provider Adam Moraes Unavailable [phone] Encounters Encounter Location Date Provider Diagnosis [facility] [address] [place] [address] 03/10/2023 Adam Beebe PLAN OF TREATMENT Next Appt Details Provider Name:Adam Beebe , 02/06/2024 04:20:00 PM, [address], [address], [place], [address],
--- OUTSIDE RECORDS SUMMARY | 2024-01-18 12:47 | XMS_ITS | Patient Health Record ---
Author Organization [facility] Address [address] [place] [address] Care Team Providers Care Steel Buffer Name Role Phone Raji Amanda MD Primary Care Provider Unavaila Adam Paris Unavailable [phone] ALLERGIES No Known Allergies RESULTS Component Value Reference Range Notes Complete Blood Count Auto Di ff Reviewed date:03/08/2023 03:46:53 PM Interpretation: Performing Lab:[facility], [address] [place] [phone] Notes/Report: White Blood Count 6.0 4.8-10.8 X10*3/uL [...] INR Reviewed date:03/08/2023 03:46:32 PM Interpretation: Performing Lab:[address] [address] Notes/Report: Prothrombin Time 12.7 11.1-13.3 SEC INTERNATIONAL [...] Panel Reviewed date:03/10/2023 12:43:02 PM Interpretation: Performing Lab:[address] [phone] Notes/Report: Bilirubin Total 1.4 0.0-1.0 mg/dL Bilirubin Direct 0.4 0.0-0.5 mg/dL Aspartate Amino Transferase 40 5-37 U/L Alanine Aminotransferase 15 0-40 U/L Total Protein 6.9 6.5-8.0 g/dL Albumin Level 3.8 3.5-5.0 g/dL Alkaline Phosphatase 97 39-117 U/L Basic Metabolic Panel Reviewed date:03/08/2023 03:46:21 PM Interpretation: Performing Lab:[address] [address] Notes/Report: Sodium 142 135-145 mmol/L Potassium 4.4 3.3-5.1 mmol/L Chloride 108 96-108 mmol/L Carbon Dioxide 26 22-29 mmol/L Anion Gap 12 12-20 Blood Urea Nitrogen 16 9-16 mg/dL Creatinine 0.83 0.5-1.4 mg/dL Estimated Glomerular Filt Rate > 60 NOTE: For -Portuguese individuals, multiply the result by 1.210. Chronic Kidney Disease: Estimated GFR < 60 mL/min/1.73m2 Severe Kidney Disease: Estimated GFR < 15 mL/min/1.73m2 Glucose Random 92 60-115 mg/dL Calcium 9.4 8.4-10.2 mg/dL Alpha Fetoprotein Reviewed date:03/09/2023 06:31:44 PM Interpretation: Performing Lab:[address] [address] Notes/Report: Alpha Fetoprotein 5.1 <6.1 ng/mL This test was performed using the Jessica Richar chemiluminescent method. Values obtained from different assay methods cannot be used interchangeably. AFP levels, regardless of value, should not be interpreted as absolute evidence of the presence or absence of disease. THIS TEST WAS PERFORMED AT: [employer] [address] [place] [phone] DAVID ANN MD Liver Fibrosis Pnl Reviewed date:05/15/2023 11:09:09 PM Interpretation: Performing Lab:[address] [address] Notes/Report: Liver Fibrosis Score 0.75 Liver Fibrosis [...] a>0.62 and a<=1.00 : A3 (severe activity) LEE-Onnaz-0-Macroglobuli n 305 106-279 mg/dL FIB-Haptoglobin 84 43-212 mg/dL FIB-Apolipoprotein A1 160 94-176 mg/dL FIB-Total Bilirubin 1.3 0.2-1.2 mg/dL FIB-GGT 25 3-70 U/L FIB-ALT 13 9-46 U/L Reference ID [id number] Footnote SEE NOTE The reliability of results is dependent on compliance with the preanalytical and analytical conditions recommended by [employer]. The tests have to be deferred for: [...] The performance characteristics have been determined by [employer] [facility]. It has not been cleared or approved by the U.S. Food and Drug Administration. Performance characteristics refer to the analytical performance of the test. [facility], [employer], the associated logo, [facility] and all associated [employer] eric are the registered trademarks of [employer]. All third libertarian eric - (R) and (TM) - are the property of their respective owners. (C) 8049-7730 [employer]. All rights reserved. THIS TEST WAS PERFORMED AT: [employer] [place] [facility] [address] [place] [address] BALBINA WATKINS MD,PHD,LATOSHA Hepatitis B Surface Antibody Reviewed date:03/07/2023 11:53:37 PM Interpretation: Performing Lab:[facility], [address] [place] [phone] Notes/Report: Hepatitis B Surface Antibody NONREACTIVE Nonreactive Nonreactive: < 8.00 mIU/mL Hepatitis BE Antibody Reviewed date:03/10/2023 12:38:23 PM Interpretation: Performing Lab:[facility], [address] [place] [phone] Notes/Report: Hepatitis BE Antibody NON-REACTIVE NON-REACTIVE For additional information, please refer to http://Fliptu.YouGift/faq/[email or web address] 02 (This link is being provided for informational/ educational purposes only.) THIS TEST WAS PERFORMED AT: [employer] [address] [place] [phone] DAVID ANN MD Hepatitis BE Antigen Reviewed date:03/10/2023 12:39:01 PM Interpretation: Performing Lab:[facility], [address] [place] [phone] Notes/Report: Hepatitis BE Antigen NON-REACTIVE NON-REACTIVE For additional information, please refer to http://Fliptu.YouGift/faq/[email or web address] 02 (This link is being provided for informational/ educational purposes only.) THIS TEST WAS PERFORMED AT: [employer] [address] [place] [phone] DAVID ANN MD Hepatitis B Viral DNA Qn Reviewed date:03/10/2023 12:39:31 PM Interpretation: Performing Lab:[facility], [address] [place] [phone] Notes/Report: Hepatitis B Viral DNA Qn - cp NOT DETECTED NOT DETECTED Log IU/mL THIS TEST WAS PERFORMED AT: [employer] [address] [place] [phone] DAVID ANN MD Hepatitis B Viral DNA Qn-IU/mL NOT DETECTED NOT DETECTED IU/mL HBSAG QUEST CONF Reviewed date:03/09/2023 06:32:02 PM Interpretation: Performing Lab:[facility], [address] [place] [phone] Notes/Report: HBsAG REACTIVE (Abnormal) For additional information, please refer to http://education.YouGift/faq/[email or web address] 02 (This link is being provided for informational/ educational purposes only.) THIS TEST PERFORMED AT: [employer] [address] [place] [phone] SUPERVISOR TESTING: DAVID ANN MD HBSAG Confirmation TNP REASON [...] agent and without coma (B18.1) Active confirmed [id number] Problem Chronic hepatitis B (B18.1) Active confirmed 90895030 Problem Other cirrhosis of liver (K74.69) Active confirmed Problem Gastroesophageal reflux disease with esophagitis, unspecified whether hemorrhage (K21.00) Active confirmed Gastroes ophageal reflux disease with esophagitis (disorder) (523001146) Problem Cirrhosis (K74.60) Active confirmed Cir rhotic (707869594) Problem Chronic hepatitis B no coma without hepatitis delta (B18.1) Active confirmed 82431341 Problem History of colon polyps (Z86.010) Active confirmed 580110696 Problem Cirrhosis of liver without ascites, unspecified hepatic cirrhosis type (K74.60) Active confirmed VITAL SIGNS Blood pressure diastolic 00 mm Hg 07/03/2023 Height 72 in 07/03/2023 Blood pressure systolic 00 mm Hg 07/03/2023 Weight 251 lbs 07/03/2023 BMI 34.04 kg/m2 07/03/2023 Encounters Encounter Location Date Provider Diagnosis [facility] [address] [place] [address] 03/23/2023 Adam Beebe [facility] [address] [place] [address] 07/03/2023 Adam Beebe Chronic viral hepati tis B without delta agent and without coma B18.1 ; Other cirrhosis of liver K74.69 ; Gastroesophageal reflux disease with esophagitis, unspecified whether hemorrhage K21.00 ; History of colon polyps Z86.010 and Cirrhosis of liver without ascites, unspecified hepatic cirrhosis type K74.60 [facility] [address] [place] [address] 02/21/2023 Adam Beebe Cirrhosis of liver without ascites, unspecified hepatic cirrhosis type K74.60 and Chronic hepatitis B B18.1 [facility] [address] [place] [address] 02/22/2023 Adma Beebe [facility] [address] [place] [address] 03/10/2023 Adam Beebe ASSESSMENTS Encounter Date Diagnosis Assessment Notes Treatment Notes Treatment Clinical Notes 07/03/2023 Other cirrhosis of liver (ICD-10 - K74.69) 07/03/2023 Chronic viral hepati tis B without delta agent and without coma (ICD-10 - B18.1) Continue the daily Entecavir rat exterminator 02/21/2023 Cirrhosis of liver without ascites, unspecified [...] HEPATITIS B SURFACE ANTIGEN 05/27/2021 ALPHA-FETOPROTEIN,TUMOR MARKER 3 ALPHA-FETOPROTEIN,TUMOR MARKER 1 ALPHA-FETOPROTEIN,TUMOR MARKER 2 [...] Name:Adam Beebe , 02/06/2024 04:20:00 PM, [address], [address], [place], [address], Insurance Providers Payer Name Payer Address Payer Phone Subscriber Number Group Number Insured Name Patient Relationship to Insured Coverage Start Date Coverage End Date MED[place]ARE OF [place] [address] [place] [id number] [id number] ADAM REAGAN Self - patient is the insured [employer] CLAIMS [address] [place] [address] [id number] [facility] GuruADAM Self - patient is the insured MEDICAL (GENERAL) HISTORY Medical History History ICD Code Denies ME,DM,CVA,Lung disease,renal dise ase hx of kidney stones Kidney stones removed 12/2020-Dr. Soliz. Had an ESWL in 09/2021 Sleep apnea-uses CPAP. Arthritis in left hip. Denies ME,DM,CVA,Lung disease,renal dise ase. Chronic hepatitis B with [...] behaviors. 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 Asymptomatic gallstones--peterson loving is aware and this was reviewed again at the 04/2022 OV Colonoscopies at [facility] with removal of polyps-most recent one [...]
--- OUTSIDE RECORDS SUMMARY | 2024-01-18 12:47 | XMS_ITS ---
Author Organization [facility] Address [address] [place] [address] Care Team Providers Care Churn Driller Helper Name Role Phone Raji Amanda MD Primary Care Provider Unavaila Sha Gaines Unavailable [phone] REASON FOR VISIT Ingrown nails Encounters Encounter Location Date Provider Diagnosis [facility] [address] [facility] [address] [place] [address] 02/05/2023 Sha Daugherty Plan Of Treatment No Information Progress Notes * Gene CORDERO ADOB:[birth year] (77 yo M)Acc No.[id number]:02/05/2023 Patient:?Gene Cordero :1945???Age:77 Y???Sex:Male Address:[address] [place] [address] [place] [address], * true * Date:? Generated for Printi ng/Famariellag/eTransmitting on:?01/18/2024 12:47 PM EST
--- OUTSIDE RECORDS SUMMARY | 2024-01-18 12:48 | XMS_ITS | Patient Health Record ---
Author [facility] Address [address] [place] [address] Care Team Providers Care Rn Recruitment Name Role Phone Raji Amanda MD Primary Care Provider Sha Caballero Unavailable [phone] Allergies No Known Allergies Reason For Referral No Information Medications Medication SIG (Take, Route, Fr equency, [...] effected nails for 30 days Ac tive Social History Tobacco Use: Social History Observation [...] W/U Status Risk Notes Problem Tinea unguium (807640131) Tinea unguium (B35.1) Active confirmed Vital Signs Height 6ft in 10/15/2023 Weight 248 lbs 10/15/2023 BMI 33.63 kg/m2 10/15/2023 Encounters Encounter Location Date Provider Diagnosis [address] [address] 02/22/2023 Sha Daugherty Tinea unguium B35.1 ; Pain in right toe(s) M79.674 and Pain in left toe(s) M79.[address] [address] 10/15/2023 Sha Daugherty Tinea unguium B35.1 ; Pain in right toe(s) M79.674 and Pain in left toe(s) M79.[address] [address] 02/05/2023 Sha Daugherty Assessments Encounter Date Diagnosis (ICD Code) Assessment Notes Treatment Notes Treatment Clinical Notes 02/22/2023 Tinea unguium (ICD-10 - B35.1) 02/22/2023 Pain in right toe(s) (ICD-10 - M79.674) 10/15/2023 Tinea unguium (ICD-10 - B35.1) 10/15/2023 Pain in right toe(s) (ICD-10 - M79.674) 10/15/2023 Pain in left toe(s) (ICD-10 - M79.675) 02/22/2023 Pain in left toe(s) (ICD-10 - M79.675) Plan Of Treatment No Information Insurance Providers Payer Name Payer Address Payer Phone Subscriber Number Group Number Insured Name Patient Relationship to Insured Coverage Start Date Coverage End Date Medicare National [facility] [address] [place] [address] [id number] Gene Corrigan Self - patient is the insured [facility] [address] [place] [address] [id number] Gene Corrigan Self - patient is the insured Medical (General) History Medical History History ICD Code Gall bladder problems Hepatitis B Liver disease Measles Mumps Chicken pox Bone implants/screws Surgical History Surgery Date(Month/Year) left hip replacement 05/03/21 ankle surgery - Fracture ORIF, Right 04/27 024 vein surgery 05/2023 Hospitalization History Reason Date(Month/Year) [facility] - Kidney stones 05/2023 Jennyy, Broken ankle 04/2023, 05/2023
== END 2024-01-14 08:47 | disposition home or self-care (01) ==
PROVIDERS: PCP Internal Medicine; Visit Provider Ophthalmology
PROC: (CPT 66985; principal; 2024-01-14 08:00)
DX: H25.12 Age-related nuclear cataract, left eye (principal); H52.4 Presbyopia; H40.013 Open angle with borderline findings, low risk, bilateral; H43.393 Other vitreous opacities, bilateral; H18.413 Arcus senilis, bilateral; H11.153 Pinguecula, bilateral; G47.33 Obstructive sleep apnea (adult) (pediatric); K74.60 Unspecified cirrhosis of liver; B19.10 Unspecified viral hepatitis B without hepatic coma; E66.9 Obesity, unspecified; Z68.34 Body mass index [BMI] 34.0-34.9, adult; Z79.899 Other long term (current) drug therapy; Z99.89 Dependence on other enabling machines and devices; Z98.890 Other specified postprocedural states; Z87.442 Personal history of urinary calculi
CPT/HCPCS: 66984; J2250; J3301; V2630

== ENCOUNTER 2024-01-28 06:03 | Day surgery (SDC) | payer MEDICARE, SELFPAY ==
[2024-01-10 06:41] VITALS: BMI 34.2
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
--- OUTSIDE RECORDS SUMMARY | 2024-01-28 06:05 | XMS_ITS ---
Author Organization [facility] Address [address] [place] [address] Care Team Providers Care Architect Name Role Phone Raji Amanda MD Primary Care Provider Adam Moraes Unavailable [phone] ALLERGIES No Known Allergies REASON FOR VISIT Patient presents today for chronic hep b MEDICATIONS Medication SIG (Take, Route, Fr equency, Duration) Notes Start Date End Date Status Allopurinol 100 MG Oral for 90 Active Omeprazole 20 MG TAKE 1 CAPSULE BY MO [facility] EVERY DAY IN THE MORNING for 90 [...] 07/03/2023 Encounters Encounter Location Date Provider Diagnosis [facility] [address] [place] [address] 07/03/2023 Adam Beebe Chronic viral hepati tis [...] (ICD-10 - B18.1) Continue the daily Entecavir retirement 07/03/2023 Other cirrhosis of liver (ICD-10 - [...] and without coma Continue the daily Entecavir retirement Next Appt Details Follow Up: 01/2024, Reason: Provider Name:Adam Beebe , 02/06/2024 04:20:00 PM, [address], [address], [place], [address], Progress Notes * Examination Category Sub-Category Detail [...]
--- OUTSIDE RECORDS SUMMARY | 2024-01-28 06:05 | XMS_ITS ---
Author Organization [facility] Address [address] [place] [address] Care Team Providers Care Engine Monitor Name Role Phone Raji Amanda MD Primary Care Provider Unavaila Adam Paris Unavailable [phone] REASON FOR VISIT Patient presents today for chronic hep b Encounters Encounter Location Date Provider Diagnosis [facility] [address] [place] [address] 03/23/2023 Adam Beebe PLAN OF TREATMENT Next Appt Details Provider Name:Adam Beebe , 02/06/2024 04:20:00 PM, [address], [address], [place], [address],
--- OUTSIDE RECORDS SUMMARY | 2024-01-28 06:06 | XMS_ITS ---
Author Organization [facility] Address [address] [place] [address] Care Team Providers Care Wrapper Off Name Role Phone Raji Amanda MD Primary Care Provider Unavaila Sha Gaines Unavailable [phone] REASON FOR VISIT Fungal Nails Medications Medication [...] 10/15/2023 Encounters Encounter Location Date Provider Diagnosis [facility] [place] [address] [place] [address] 10/15/2023 Sha Willow Tinea unguium B35.1 ; Pain in right toe(s) M79.674 and Pain in left toe(s) M79.675 Assessments Encounter Date Diagnosis (ICD Code) Assessment Notes Treatment Notes Treatment Clinical Notes Section Notes 10/15/2023 Tinea unguium (ICD-10 - B35.1) [...] * Gene CORDERO ADOB:[birth year] (77 yo M)Acc No.[id number]:10/15/2023 Progress Note Patient:?Gene Cordero Provider:?Sha Daugherty DPM :1945???Age:77 Y???Sex:Male Sanjeev e:10/15/2023 Address:[address] [place], [place] [address] Pcp:Raji Amanda MD Subjective: * Chief Complaints: [...] Daugherty DPM Date:?2023 Generated for Lauri castillo/Marya/Alban on:?01/28/2024 06:05 AM EST History and Physical Notes * HPI (History of Present Illness) Category Sub-Category Detail Notes Category Not es Painful Nails Aggravated by: shoegear causing difficulty standing/walking Duration: 1 year or more Location: Both feet Nature: aching, tender, disc olored Treatments: Ciclopirox topical g el , since , , relates incomplete sporatic adherence to recom tx , denies any adverse side effects to medication , (i.e. adjacent periungual skin irritation, inflammation, erosion) Examination Category Sub-Category Detail Notes Category Not es Nails NAILS are: STILL, Elongated , overgrown, dystrophic, lytic, greater than 3mm thick, discolored and friable with crumbly malodorous subungual debris, with pain on palpation, NOW ALSO T3, T4, T5
--- OUTSIDE RECORDS SUMMARY | 2024-01-28 06:06 | XMS_ITS ---
Author Organization [facility] Address [address] [place] [address] Care Team Providers Care Air Conditioning Installer Supervisor Name Role Phone Raji Amanda MD Primary Care Provider Unavaila Sha Gaines Unavailable [phone] REASON FOR VISIT Ingrown nails Encounters Encounter Location Date Provider Diagnosis [facility] [address] [facility] [address] [place] [address] 02/05/2023 Sha Daugherty Plan Of Treatment No Information Progress Notes * Gene CORDERO ADOB:[birth year] (77 yo M)Acc No.[id number]:02/05/2023 Patient:?Gene Cordero :1945???Age:77 Y???Sex:Male Address:[address] [place] [address] [place] [address], * true * Date:? Generated for Printi ng/Famariellag/eTransmitting on:?01/28/2024 06:06 AM EST
--- OUTSIDE RECORDS SUMMARY | 2024-01-28 06:06 | XMS_ITS | Patient Health Record ---
[facility] Organization [facility] Address [address] [address] Care Team Providers Care Machine Stemmer Name Role Phone Raji Amanda MD Primary Care Provider Sha Caballero Unavailable [phone] Allergies No Known Allergies Reason For Referral [...] W/U Status Risk Notes Problem Tinea unguium (904493866) Tinea unguium (B35.1) Active confirmed Vital Signs Height 6ft in 10/15/2023 Weight 248 lbs 10/15/2023 BMI 33.63 kg/m2 10/15/2023 Encounters Encounter Location Date Provider Diagnosis [address] [address] 02/22/2023 Sha Daugherty Tinea unguium B35.1 ; Pain in right toe(s) M79.674 and Pain in left toe(s) M79.[address] [address] 10/15/2023 Sha Daugherty Tinea unguium B35.1 ; Pain in right toe(s) M79.674 and Pain in left toe(s) M79.[address] [address] 02/05/2023 Sha Daugherty Assessments Encounter Date Diagnosis (ICD Code) Assessment Notes Treatment Notes Treatment Clinical Notes Section Notes 02/22/2023 Tinea unguium (ICD-10 - B35.1) [...] Medicare National [employer] [address] [facility] [place] [address] [id number] Gene Corrigan Self - [facility] [address] [place] [address] [id number] Gene Corrigan Self - patient is the insured Medical (General) History Medical History History ICD Code Gall bladder problems Hepatitis B Liver disease Measles Mumps Chicken pox Bone implants/screws Surgical History Surgery Date(Month/Year) left hip replacement 05/03/21 ankle surgery - Fracture ORIF, Right 04/27 024 vein surgery 05/2023 Hospitalization History Reason [place] [facility] [place] [facility] Broken ankle 04/2023, 05/2023
--- OUTSIDE RECORDS SUMMARY | 2024-01-28 06:06 | XMS_ITS ---
Author Organization [facility] Address [address] [place] [address] Care Team Providers Care Classroom Monitor Name Role Phone Raji Amanda MD Primary Care Provider Adam Moraes Unavailable [phone] Encounters Encounter Location Date Provider Diagnosis [facility] [address] [place] [address] 03/10/2023 Adam Beebe PLAN OF TREATMENT Next Appt Details Provider Name:Adam Beebe , 02/06/2024 04:20:00 PM, [address], [address], [place], [address],
--- OUTSIDE RECORDS SUMMARY | 2024-01-28 06:06 | XMS_ITS | Patient Health Record ---
Author Organization [facility] Address [address] [place] [address] Care Team Providers Care Carburizing Furnace Operator Name Role Phone Raji Amanda MD Primary Care Provider Unavaila Adam Paris Unavailable [phone] ALLERGIES No Known Allergies RESULTS Component Value Reference Range Notes Complete Blood Count Auto Di ff Reviewed date:03/08/2023 03:46:53 PM Interpretation: Performing Lab:[facility], [address] [place] [phone] Notes/Report: White Blood Count 6.0 4.8-10.8 X10*3/uL [...] INR Reviewed date:03/08/2023 03:46:32 PM Interpretation: Performing Lab:[address] [phone] Notes/Report: Prothrombin Time 12.7 11.1-13.3 SEC INTERNATIONAL [...] Panel Reviewed date:03/10/2023 12:43:02 PM Interpretation: Performing Lab:[address] [address] Notes/Report: Bilirubin Total 1.4 0.0-1.0 mg/dL Bilirubin Direct 0.4 0.0-0.5 mg/dL Aspartate Amino Transferase 40 5-37 U/L Alanine Aminotransferase 15 0-40 U/L Total Protein 6.9 6.5-8.0 g/dL Albumin Level 3.8 3.5-5.0 g/dL Alkaline Phosphatase 97 39-117 U/L Basic Metabolic Panel Reviewed date:03/08/2023 03:46:21 PM Interpretation: Performing Lab:[address] [address] Notes/Report: Sodium 142 135-145 mmol/L Potassium 4.4 3.3-5.1 mmol/L Chloride 108 96-108 mmol/L Carbon Dioxide 26 22-29 mmol/L Anion Gap 12 12-20 Blood Urea Nitrogen 16 9-16 mg/dL Creatinine 0.83 0.5-1.4 mg/dL Estimated Glomerular Filt Rate > 60 NOTE: For -[place] individuals, multiply the result by 1.210. Chronic Kidney Disease: Estimated GFR < 60 mL/min/1.73m2 Severe Kidney Disease: Estimated GFR < 15 mL/min/1.73m2 Glucose Random 92 60-115 mg/dL Calcium 9.4 8.4-10.2 mg/dL Alpha Fetoprotein Reviewed date:03/09/2023 06:31:44 PM Interpretation: Performing Lab:[address] [address] Notes/Report: Alpha Fetoprotein 5.1 <6.1 ng/mL This test was performed using the Jessica Richar chemiluminescent method. Values obtained from different assay methods cannot be used interchangeably. AFP levels, regardless of value, should not be interpreted as absolute evidence of the presence or absence of disease. THIS TEST WAS PERFORMED AT: [facility] [address] [place] [phone] DAVID ANN MD Liver Fibrosis Pnl Reviewed date:05/15/2023 11:09:09 PM Interpretation: Performing Lab:[address] [address] Notes/Report: Liver Fibrosis Score 0.75 Liver Fibrosis [...] a>0.62 and a<=1.00 : A3 (severe activity) RHU-Onvag-7-Macroglobuli n 305 106-279 mg/dL FIB-Haptoglobin 84 43-212 mg/dL FIB-Apolipoprotein A1 160 94-176 mg/dL FIB-Total Bilirubin 1.3 0.2-1.2 mg/dL FIB-GGT 25 3-70 U/L FIB-ALT 13 9-46 U/L Reference ID [id number] Footnote SEE NOTE The reliability of results is dependent on compliance with the preanalytical and analytical conditions recommended by [employer]. The tests have to be deferred for: [...] The performance characteristics have been determined by [employer] [facility]. It has not been cleared or approved by the U.S. Food and Drug Administration. Performance characteristics refer to the analytical performance of the test. [employer], [employer], the associated logo, [facility] and all associated [employer] eric are the registered trademarks of [employer]. All third alliance party eric - (R) and (TM) - are the property of their respective owners. (C) 0624-2924 [employer]. All rights reserved. THIS TEST WAS PERFORMED AT: [facility] [address] [place] [address] BALBINA WATKINS MD,PHD,LATOSHA Hepatitis B Surface Antibody Reviewed date:03/07/2023 11:53:37 PM Interpretation: Performing Lab:[facility], [address] [place] [phone] Notes/Report: Hepatitis B Surface Antibody NONREACTIVE Nonreactive Nonreactive: < 8.00 mIU/mL Hepatitis BE Antibody Reviewed date:03/10/2023 12:38:23 PM Interpretation: Performing Lab:[facility], [address] [place] [phone] Notes/Report: Hepatitis BE Antibody NON-REACTIVE NON-REACTIVE For additional information, please refer to http://[employer]/faq/FAQ2 02 (This link is being provided for informational/ educational purposes only.) THIS TEST WAS PERFORMED AT: [facility] [address] [place] [phone] DAVID ANN MD Hepatitis BE Antigen Reviewed date:03/10/2023 12:39:01 PM Interpretation: Performing Lab:[facility], [address] [place] [phone] Notes/Report: Hepatitis BE Antigen NON-REACTIVE NON-REACTIVE For additional information, please refer to http://[employer]/faq/FAQ2 02 (This link is being provided for informational/ educational purposes only.) THIS TEST WAS PERFORMED AT: [facility] [address] [place] [phone] DAVID ANN MD Hepatitis B Viral DNA Qn Reviewed date:03/10/2023 12:39:31 PM Interpretation: Performing Lab:[facility], [address] [place] [phone] Notes/Report: Hepatitis B Viral DNA Qn - cp NOT DETECTED NOT DETECTED Log IU/mL THIS TEST WAS PERFORMED AT: [facility] [address] [place] [phone] DAVID ANN MD Hepatitis B Viral DNA Qn-IU/mL NOT DETECTED NOT DETECTED IU/mL HBSAG [facility] Reviewed date:03/09/2023 06:32:02 PM Interpretation: Performing Lab:[facility], [address] [place] [phone] Notes/Report: HBsAG REACTIVE (Abnormal) For additional information, please refer to http://education.[employer]/faq/FAQ2 02 (This link is being provided for informational/ educational purposes only.) THIS TEST PERFORMED AT: [facility] [address] [place] [phone] KEG HEADER: DAVID ANN MD HBSAG Confirmation TNP REASON [...] agent and without coma (B18.1) Active confirmed [id number] Problem Chronic hepatitis B (B18.1) Active confirmed 19959409 Problem Other cirrhosis of liver (K74.69) Active confirmed Problem Gastroesophageal reflux disease with esophagitis, unspecified whether hemorrhage (K21.00) Active confirmed Gastroes ophageal reflux disease with esophagitis (disorder) (567803538) Problem Cirrhosis (K74.60) Active confirmed Cir rhotic (172324081) Problem Chronic hepatitis B no coma without hepatitis delta (B18.1) Active confirmed 30808122 Problem History of colon polyps (Z86.010) Active confirmed 458061283 Problem Cirrhosis of liver without ascites, unspecified hepatic cirrhosis type (K74.60) Active confirmed VITAL SIGNS Blood pressure diastolic 00 mm Hg 07/03/2023 Height 72 in 07/03/2023 Blood pressure systolic 00 mm Hg 07/03/2023 Weight 251 lbs 07/03/2023 BMI 34.04 kg/m2 07/03/2023 Encounters Encounter Location Date Provider Diagnosis [facility] [address] [place] [address] 03/23/2023 Adam Beebe [facility] [address] [place] [address] 07/03/2023 Adam Beebe Chronic viral hepati tis B without delta agent and without coma B18.1 ; Other cirrhosis of liver K74.69 ; Gastroesophageal reflux disease with esophagitis, unspecified whether hemorrhage K21.00 ; History of colon polyps Z86.010 and Cirrhosis of liver without ascites, unspecified hepatic cirrhosis type K74.60 [facility] [address] [place] [address] 02/21/2023 Adam Beebe Cirrhosis of liver without ascites, unspecified hepatic cirrhosis type K74.60 and Chronic hepatitis B B18.1 [facility] [address] [place] [address] 02/22/2023 Adam Beebe [facility] [address] [place] [address] 03/10/2023 Adam Beebe ASSESSMENTS Encounter Date Diagnosis Assessment Notes Treatment Notes Treatment Clinical Notes 07/03/2023 Other cirrhosis of liver (ICD-10 - K74.69) 07/03/2023 Chronic viral hepati tis B without delta agent and without coma (ICD-10 - B18.1) Continue the daily Entecavir halfway 02/21/2023 Cirrhosis of liver without ascites, unspecified [...] CHEM 7 PROFILE 11/01/2021 CHEM 7 PROFILE 02/21/2023 CHEM 7 PROFILE 03/15/2021 LIVER PROFILE 02/21/2023 LIVER PROFILE 03/15/2021 LIVER PROFILE 12/30/2020 LIVER PROFILE 01/27/2021 LIVER PROFILE 05/02/2022 LIVER PROFILE 09/19/2021 LIVER PROFILE 01/27/2021 LIVER PROFILE 11/01/2021 IRON + IBC (FE) 12/30/2020 CBC w DIFF 01/27/2021 CBC w DIFF 11/01/2021 CBC w DIFF 02/21/2023 CBC w DIFF 03/15/2021 CBC w DIFF 05/27/2021 CBC w DIFF [...] E ANTIBODY 05/02/2022 HEPATITIS B E ANTIBODY 12/30/2020 HEPATITIS B E ANTIBODY 01/27/2021 HEPATITIS B E ANTIBODY 02/21/2023 HEPATITIS B E ANTIBODY 03/15/2021 HEPATITIS B E ANTIGEN 05/02/2022 HEPATITIS B E ANTIGEN 12/30/2020 HEPATITIS B E ANTIGEN 01/27/2021 HEPATITIS B E ANTIGEN 02/21/2023 HEPATITIS B E ANTIGEN 03/15/2021 HEPATITIS B VIRAL DNA QUANT 05/02/2022 HEPATITIS [...] Name:Adam Beebe , 02/06/2024 04:20:00 PM, [address], [address], [place], [address], Insurance Providers Payer Name Payer Address Payer Phone Subscriber Number Group Number Insured Name Patient Relationship to Insured Coverage Start Date Coverage End Date [place] [address] [facility] [place] [address] [id number] ADAM REAGAN Self - patient is the insured [employer] CLAIMS [address] [place] [address] [id number] [facility] GuruADAM Self - patient is the insured [...] behaviors. 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 Asymptomatic gallstones--peterson loving is aware and this was reviewed again at the 04/2022 OV Colonoscopies at [facility] with removal of polyps-most recent one was [...]
--- OUTSIDE RECORDS SUMMARY | 2024-01-28 06:06 | XMS_ITS ---
Author Organization [facility] [place] Address [address] [place] [address] Care Team Providers Care Adoption Services Manager Name Role Phone Raji Amanda MD Primary Care Provider Unavaila Sha Gaines Unavailable [phone] Allergies No Known Allergies REASON FOR VISIT [...] W/U Status Risk Notes Problem Tinea unguium ([id number]) Tinea unguium (B35.1) Active confirmed Vital Signs Height 6ft in 02/22/2023 Weight 261 lbs 02/22/2023 BMI 35.39 kg/m2 02/22/2023 Encounters Encounter Location Date Provider [facility] [address] [place] [phone] 02/22/2023 Sha Daugherty Tinea unguium B35.1 ; [...] * Gene CORDERO ADOB:[birth year] (77 yo M)Acc No.[id number]:02/22/2023 Progress Note Patient:?Gene Cordero A Provider:?Sha Daugherty DPM :1945???Age:77 Y???Sex:Male Sanjeev e:02/22/2023 Address:[address] [place] [phone] Pcp:Raji Amanda MD Subjective: * Chief Complaints: [...] Provider:?Sha Daugherty DPM Date:?2022 Generated for Lauri castillo/Marya/Desiraeitting on:?01/28/2024 06:06 AM EST History and Physical Notes * HPI (History of Present Illness) Category Sub-Category Detail Notes Category Not es Painful Nails Aggravated by: shoegear causing difficulty standing/walking Duration: 1 year or more Location: Both feet Nature: aching, tender, disc olored Treatments: none Examination Category Sub-Category Detail Notes Category Not es Nails NAILS are: Elongated, overg rown, dystrophic, lytic, greater than 3mm thick, discolored and friable with crumbly malodorous subungual debris, with pain on palpation, T4, T5
[2024-01-28 06:27] VITALS: BP 137/71; PULSE 62; RESP 15; TEMP 36.8; O2SAT 94
[2024-01-28] MEDS: Tetracaine HCl/PF 0.5% Oph Sol 4 ML DROPS 1 DROP EYE-RIGHT (06:30)
[2024-01-28] MEDS: Cyclopentolate 1 % Ophth Sol 2 ML DRPBTL 1 DROP EYE-RIGHT ×3 (06:32→06:43)
[2024-01-28] MEDS: Tropicamide 1 % Ophth Sol 3 ML BTL 1 DROP EYE-RIGHT ×3 (06:34→06:45)
[2024-01-28] MEDS: Ketorolac Tromethamine 0.5% Op 10 ML DROPS 1 DROP EYE-RIGHT ×3 (06:36→06:46)
[2024-01-28] MEDS: Lactated Ringers 500 ML 50 ML IV (06:37)
[2024-01-28] MEDS: Phenylephrine HCL 2.5% Oph SoL 2 ML BOTTLE 1 DROP EYE-RIGHT ×3 (06:37→06:47)
--- NOTE | 2024-01-28 07:27 | P.PCNO_ITS ---
Ophthalmology Procedure Procedure Date of Service: 01/28/24 Ophthalmology Viscoelastic: Healon Duet Dual Pack Pro Ophthalmology Lenses: IOL Acrysof MP - MA60AC (20) Procedure Notes: PREOPERATIVE DIAGNOSIS: Decreased visual acuity right eye secondary to cataract POSTOPERATIVE DIAGNOSIS: Same PROCEDURE: Right cataract extraction with intraocular lens insertion SURGEON: Jason Matthews M.D. ANESTHESIA: Topical/MAC ESTIMATED BLOOD LOSS: None COMPLICATIONS: None After obtaining informed consent, the patient was brought to the operating room suite and placed in the supine position. After adequate sedation per anesthesia, topical drops of Tetracaine were given to the right eye. The eye was then prepped and draped in the usual sterile fashion. The operating room microscope was then positioned over the operative eye and a lid speculum placed. A paracentesis was created. Viscoelastic was then instilled into the anterior chamber. A three plane incision was then created temporally, utilizing a 2.85 mm keratome. Capsulotomy forceps were then utilized to create a circular tear capsulotomy. Hydrodissection and hydrodelineation were carried out until adequate mobilization of the nucleus occurred. Phacoemulsification was then utilized to remove the dense central nucl eus followed by removal of the cortical material utilizing the automated aspiration irrigation unit. Viscoelastic was instilled into the posterior capsular bag followed by placement of a posterior chamber intraocular lens without difficulty. The residual Viscoelastic was then removed utilizing the automated IA machine. The wound was checked and found to be watertight. The patient tolerated the procedure well and the lid speculum was removed. Intracameral injection of Vigamox 0.1 mL followed by a subtenon injection of Kenalog-40 0.2 mL were administered. The patient will be seen in the a.m.
--- NOTE | 2024-01-28 07:27 | MHC.SHP ---
Pre-Procedural Eval Section A - 24 Hr Update-Section A only Date of Service: 01/28/24 The patient is an INPATIENT: No Changes since office visit: No Cold of Flu in the past 2 weeks, No New Medical Problems, No Changes in Medication and No Patient answered all questions The patient has been examined within 24 hours of the surgical procedure. The History & Physical has been completed within 30 days and I have reviewed it.: Yes Section B - Complete if H&P > 30 days Chief Complaint: Age-related nuclear cataract, right eye Allergies: Allergies Allergy/AdvReac Type Severity Reaction Status Date / Time No Known Allergies Allergy Verified 01/28/24 06:25 Plan Diagnosis/Plan: Unchanged I have reviewed the history and physical and performed a pertinent physical examination on my patient. No changes have occurred unless specified. Time Spent With Patient Time: Total time managing care of this patient today ____ minutes.
[2024-01-28 07:50] VITALS: BP 155/70; PULSE 53; RESP 16; TEMP 36.1; O2SAT 99
== END 2024-01-28 08:03 | disposition home or self-care (01) ==
PROVIDERS: PCP Internal Medicine; Visit Provider Ophthalmology
PROC: (CPT 66985; principal; 2024-01-28 07:30)
DX: H25.11 Age-related nuclear cataract, right eye (principal); H52.4 Presbyopia; H40.013 Open angle with borderline findings, low risk, bilateral; H18.413 Arcus senilis, bilateral; H43.393 Other vitreous opacities, bilateral; H11.153 Pinguecula, bilateral; B19.10 Unspecified viral hepatitis B without hepatic coma; K74.60 Unspecified cirrhosis of liver; F41.9 Anxiety disorder, unspecified; G47.33 Obstructive sleep apnea (adult) (pediatric); Z66 Do not resuscitate; Z79.899 Other long term (current) drug therapy; Z98.890 Other specified postprocedural states
CPT/HCPCS: 66984; J2250; J3010; J3301; V2630

== ENCOUNTER 2024-02-21 07:05 | Outpatient (REF) | payer MEDICARE, SELFPAY ==
--- NOTE | ~2024-02-21 | US_ITS ---
EXAMINATION: US COMPLETE ABDOMEN WITH LIVER ELASTOGRAPHY CLINICAL INFORMATION: Chronic bilateral hepatitis COMPARISON: None available. TECHNIQUE: Real-time imaging of the abdominal viscera. Noninvasive ultrasound liver fibrosis assessment is performed using Naif ElastPQ point quantification shear wave elastography (pSWE) with a C5-2 MHz transducer. Multiple elastography samples are obtained. FINDINGS: PANCREAS: The visualized pancreatic head and body are normal in appearance. The remainder of the pancreas is obscured from visualization by the overlying bowel gas. ABDOMINAL AORTA: The proximal and mid abdominal aorta is of normal caliber. INFERIOR VENA CAVA: Visualized portions are normal. LIVER: The liver demonstrates normal size, contour with diffuse increased echogenicity. There are 2 anechoic cyst. Cysts in the right hepatic lobe measures 1.4 x 1.5 x 1.3 cm and left lower lobe measures 2.2 x 1.8 x 2.1 cm. No intrahepatic biliary duct dilatation. The right lobe measures 14.6 cm in length. The left lobe measures 13.2 cm in length. Portal flow is hepatopedal Shear wave liver elastography median stiffness is 1.08 m/s (reference: normal median stiffness is 1.3 m/s or less). IQR/median stiffness to assess sampling precision is 0.10 (reference: good quality data set is IQR/median stiffness of 0.15 or less). GALLBLADDER: There are echogenic gallstones measuring 2.1 x 1.1 x 1.9 cm. Gallbladder wall thickness measures 0.4 cm. No pericholecystic fluid collection. No tenderness in the right upper quadrant by ultrasound probe COMMON BILE DUCT: Normal in caliber measuring 0.4 cm in diameter. RIGHT KIDNEY: No hydronephrosis. No renal calculi or focal parenchymal lesions. There are multiple echogenic stones in lower pole. 1 stone measures 1.0 x 0.6 x 1.0 cm. 2. Stone measures 0.7 x 0.6 x 0.5 cm. 3. Mid to lower pole stone measuring 0.7 x 0.6 x 0.5 cm. LEFT KIDNEY: No hydronephrosis. No renal calculi or focal parenchymal lesions. The kidney measures 11.0 cm in maximum dimension. SPLEEN: Unremarkable. The spleen measures 11.2 cm in maximum dimension. FREE FLUID: None seen. US/US abdomen comp w elastography IMPRESSION: 1. Diffusely heterogeneous liver with 2 anechoic simple cysts. 2. Echogenic large gallstone measures 2.1 cm. Mild wall thickening seen. No tenderness in right upper quadrant by ultrasound probe 2. Liver elastography: Medial liver stiffness measures 1.08. This is high probability normal REFERENCE: Society of Radiologists in Ultrasound Liver Stiffness Thresholds (2019): LIVER STIFFNESS THRESHOLDS: *Liver Stiffness equal or less than 1.3 m/s: High probability of being normal. *Liver Stiffness less than 1.7 m/s: In the absence of other known clinical signs, rules out compensated advanced chronic liver disease. *Liver Stiffness 1.7-2.1 m/s: Suggestive of compensated advanced chronic liver disease but need further test for confirmation. *Liver Stiffness over 2.1 m/s: Rules in compensated advanced chronic liver disease. *Liver Stiffness over 2.4 m/s: Suggestive of clinically significant portal hypertension. QUALITY OF DATA SET: *IQR/Median value equal or less than 0.15 implies a quality data set. *IQR/Median value over 0.15 implies a poor quality data set. SIGNIFICANT CHANGE FROM PRIOR EXAM: Significant change if liver stiffness measurement is 10% or greater from prior exam. OTHER CONSIDERATIONS: The stage of liver fibrosis may be overestimated in the setting of acute hepatitis, liver inflammation, elevated liver function tests, hepatic vascular congestion, obstructive cholestasis, non-fasting state, and infiltrative diseases such as amyloidosis and lymphoma. In some patients with NAFLD, the liver stiffness thresholds for compensated advanced chronic liver disease may be lower. In causes other than viral hepatitis and NAFLD, liver stiffness thresholds are not well established. Electronically signed by: Ravindra Robin MD 03/18/2024 04:43 PM [facility] [place]
[2024-02-21 07:53] LABS: Prothrombin Time 11.4 SEC (10.9-12.4)
[2024-02-21 08:02] LABS: Basophils Percent Auto 0.7 % (0-2); Eosinophils Absolute Auto 0.1 X10*3/uL (0.0-0.4); Hematocrit 45.8 % (42.0-52.0); Lymphocytes Absolute Auto 1.3 X10*3/uL (1.2-4.9); Lymphocytes Percent Auto 29.5 % (20-40); MANUAL DIFF FLAG SCAN; Mean Corpuscular HGB Conc 32.8 g/dl (31.0-36.0); Mean Corpuscular Hemoglobin 28.1 pg (27.0-33.0); Mean Corpuscular Volume 85.9 fL (80.0-98.0); Mean Platelet Volume 11.8 fL (9.4-12.4); Monocytes Absolute Auto 0.5 X10*3/uL (0.1-1.2); Monocytes Percent Auto 9.9 % (2-11); Neutrophils Absolute Auto 2.6 x10*3/uL (2.0-8.3); Neutrophils Percent Auto 57.9 % (45-73); PLT CLUMP 1; Red Blood Count 5.33 X10*6/uL (4.60-5.80); Red Cell Distribution Width 14.4 % (11.0-16.0); SCAN SMEAR FLAG 1
[2024-02-21 08:10] LABS: White Blood Count 4.5 X10*3/uL (4.8-10.8)
[2024-02-21 08:18] LABS: Platelet Count 89 X10*3/uL (160-400); SLIDE REVIEW VERIFIED
[2024-02-21 08:44] LABS: Alanine Aminotransferase 22 U/L (0-40); Alkaline Phosphatase 88 U/L (39-117); Anion Gap 12 (12-20); Aspartate Amino Transferase 37 U/L (5-37); Bilirubin Direct 0.3 mg/dL (0.0-0.5); Bilirubin Total 1.5 mg/dL (0.0-1.0); Blood Urea Nitrogen 21 mg/dL (9-16); Calcium 9.5 mg/dL (8.4-10.2); Carbon Dioxide 24 mmol/L (22-29); Chloride 109 mmol/L (96-108); Estimated Glomerular Filt Rate > 60; Glucose Random 101 mg/dL (60-115); Potassium 4.5 mmol/L (3.3-5.1); Sodium 140 mmol/L (135-145); Total Protein 7.5 g/dL (6.5-8.0)
[2024-02-21 15:02] LABS: HBS Num1 2.93 mIU/mL (0-7.99); HBc Num1 7.31 S/CO (0.00-0.79); ~Hepatitis B Surface Antibody NONREACTIVE (Nonreactive)
[2024-02-22 08:29] LABS: HBc Num2 7.65 S/CO; HBc Num3 7.65 S/CO; HBsAGNum2 Reactive; HBsAGNum3 Reactive; Hepatitis B Core Antibody Reactive (Nonreactive); Hepatitis B Surface Antigen Retest CNFM (Negative)
[2024-02-22 12:38] LABS: Alpha Fetoprotein 5.3 ng/mL (<6.1)
[2024-02-22 12:53] LABS: Hepatitis B Viral DNA Qn - cp NOT DETECTED Log IU/mL (NOT DETECTED); Hepatitis B Viral DNA Qn-IU/mL NOT DETECTED (NOT DETECTED)
[2024-02-22 23:08] LABS: Hepatitis BE Antigen NON-REACTIVE (NON-REACTIVE)
[2024-02-23 01:04] LABS: Hepatitis BE Antibody NON-REACTIVE (NON-REACTIVE)
[2024-02-23 09:34] LABS: Hepatitis B Core Antibody IgM NON-REACTIVE (NON-REACTIVE)
[2024-02-28 16:08] LABS: FIB-ALT 8 U/L (9-46); FIB-Alpha-2-Macroglobulin 304 mg/dL (106-279); FIB-Apolipoprotein A1 174 mg/dL (94-176); FIB-GGT 23 U/L (3-70); FIB-Haptoglobin 84 mg/dL (43-212); FIB-Total Bilirubin 1.2 mg/dL (0.2-1.2); Liver Fibrosis Stage F3; Nec Inflam Act Grade A0; Nec Inflam Act Score 0.03; Reference ID 5270486
== END 2024-02-21 07:06 | disposition home or self-care (01) ==
LOC: HO.US 07:05
PROVIDERS: PCP Internal Medicine; Visit Provider Internal Medicine
DX: B18.1 Chronic viral hepatitis B without delta-agent (principal); K80.20 Calculus of gallbladder without cholecystitis without obstruction
CPT/HCPCS: 36415; 76700; 76981; 80048; 80076; 81596; 82105; 85025; 85610; 86704; 86705; 86706; 86707; 87340; 87350; 87517

== ENCOUNTER → 2024-02-21 07:30 | Outpatient (BNV) | payer MEDICARE, SELFPAY | PROVIDERS: PCP Internal Medicine; Visit Provider Radiology Diagnostic Radiology | DX: B18.9 Chronic viral hepatitis, unspecified (principal) | CPT/HCPCS: 76700 ==

== ENCOUNTER 2024-04-21 15:52 | Outpatient (AMB) | payer MEDICARE, SELFPAY ==
--- NOTE | 2024-04-21 16:00 | A.OFFVIS_ITS ---
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 Stone analysis: 04/2023--Calcium Oxalate Dihydrate 15%, Calcium Oxalate Monohydrate (Whewellite) 70%, Carbonate Apatite 15%Instructed on importance of fluid intake, low sodium diet. Reviewed CT imaging from November 22, 2023, bilateral small less than 4 mm renal calculi right greater than left. Patient is on allopurinol. Will refer to Nephrology to re-evaluate medication therapy for hypercalciuria and kidney stone production. Follow-up with me in 6 months renal ultrasound at that time. Continue tadalafil for ED. 11/07/2023--reviewed renal ultrasound August 02, 2023 left hydronephrosis bilateral kidney stones. Will re-evaluate with CT KUB, 24 hour urine pending. 07/09/2023 Gene is followed for nephrolithiasis. He is status post ESWL and stent removal. He states he has been doing well. I have discussed metabolic workup including 24 hour urine collection. The patient is also concerned regarding erections. Has taken Viagra in the past with some improvement but lately is less satisfied with the results of the medication. I have discussed daily Cialis 5 mg daily we will continue the Viagra 100 mg on demand. 3-4 months telehealth follow-up. 30 minutes spent in review of records pertaining to this visit and including krkl-[id number] discussion with the patient and documentation of this visit. 05/14/2023--Gene presents for telehealth visit, video attempted to discuss KUB results. The patient had KUB done on 05/08/2023. I have reviewed the results with the patient --the stent is in good position. The ureteral stone is in the mid to proximal ureter. I discussed possible left ESWL if the stone was noted to be migrated up into the kidney. Today discussion involved review of imaging and plan to schedule ureteroscopy with laser lithotripsy stent exchange on the left. Also discussed is that he has bilateral kidney stones which will need to be addressed regarding treatment plan in the future. 05/04/23--Gene is a 77-year-old male who has been followed by [facility] [place] in the past he has been treated by Dr. Soliz for kidney stones. He is on vitamin B6 100 mg daily. He presented to the ED on 04/29/2023 with left flank pain. CT imaging noted bilateral kidney stones left greater than right with a left sided 6 mm proximal obstructing ureteral stone. He is status post left ureteral stent placed on 04/30/23. I have discussed with him further treatment options to include shockwave lithotripsy versus ureteroscopy laser lithotripsy. I have reviewed the CT scan films and the fluoroscopy surgical films with the patient. Discussed plan to check a KUB x-ray and will schedule a telehealth follow-up to review KUB x-ray results and clarify surgical treatment plan. [facility] Medical History Preop exam for internal medicine Cirrhosis GERD (gastroesophageal reflux disease) Kidney stone Hepatitis B COVID-19 vaccine series completed Sleep apnea BPH (benign prostatic hyperplasia) Obesity Arthritis of left hip Anxiety Hip pain Surgical History History of total left hip arthroplasty History of lithotripsy H/O colonoscopy History of back surgery History of appendectomy History of tonsillectomy Family History Father No problems noted. Mother No problems noted. Daughter No problems noted. 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 Cognitive needs: No Hearing needs: No Vision needs: Yes Review of Systems Const All systems reviewed & are unremarkable except as noted in HPI and below Reports no additional complaints Eyes Reports no additional complaints ENT Reports no additional complaints Card Reports no additional complaints Resp Reports no additional complaints GI Reports no additional complaints Reports as per HPI Musc Reports no additional complaints Skin/Breast Reports system reviewed and no additional complaints, except as documented Neuro Reports no additional complaints Psych Reports no additional complaints Endo Reports no additional complaints Jez/Lymph Reports no additional complaints Aller/Immun Reports no additional complaints Results AMB Urinalysis, Automated UA Leukoctes 0 Sherif/uL Last Edit by PARISH Rutledge on 04/21/24 16:15 UA Nitrite Negative Last Edit by PARISH Rutledge on 04/21/24 16:15 UA Urobilinogen 0.2 mg/dL Last Edit by PARISH Rutledge on 04/21/24 16:1 5 UA Protein 30 mg/dL Last Edit by PARISH Rutledge on 04/21/24 16:15 UA pH 6.0 Last Edit by Roberta Martins CCM on 04/21/24 16:15 UA Blood 0 Wisam/uL Last Edit by PARISH Rutledge on 04/21/24 16:15 UA Specific Milton 1.030 Last Edit by PARISH Rutledge on 04/21/24 16: 15 UA Ketone Negative Last Edit by PARISH Rutledge on 04/21/24 16:15 UA Bilirubin 1 mg/dL Last Edit by PARISH Rutledge on 04/21/24 16:15 UA Glucose 0 mg/dL Last Edit by PARISH Rutledge on 04/21/24 16:15 Results Reviewed Results Reviewed: Date of Service: 11/22/23 CT ABDOMEN AND PELVIS WITHOUT CONTRAST CLINICAL INFORMATION: Calculus of the kidney COMPARISON: CT dated April 30, 2023 TECHNIQUE: Multidetector volumetric imaging was performed from the superior aspect of the liver through the pubic symphysis. Sagittal and coronal reformatted images were obtained on the technologist's workstation. This CT examination was performed using dose optimization techniques as appropriate, variously including the following: *Automated exposure control *Adjustment of mA and/or kV according to patient size (this includes techniques or standardized protocols for targeted exams where dose is matched to indication/reason for exam; i.e. extremities or head) *Use of iterative reconstruction technique DLP: 822 mGy-cm FINDINGS: Limited evaluation of the intra-abdominal organs and vascular structures due to lack of IV contrast. LIVER, GALLBLADDER, AND BILIARY TREE: Liver measures 15 cm. Nodular surface. Prominent caudate lobe. Less than 2 cm round hypodensities in the left hepatic and right hepatic lobes. There is a 1.6 cm calcification within the lumen of the gallbladder. No pericholecystic fluid collection. No gallbladder wall thickening. No intrahepatic or extrahepatic biliary ductal dilatation. PANCREAS: No peripancreatic fluid collections. No main pancreatic ductal dilatation. SPLEEN: 12 cm. ADRENAL GLANDS: No nodular lesions. KIDNEYS AND URETERS: Multiple calculi measuring less than 4 mm throughout the pelvicalyceal system, bilaterally more conspicuous on the right kidney and focal in the lower pole of the left kidney. There is no calcifications within the ureters or the urinary bladder. BLADDER: Fluid-filled and nearly collapsed. GASTROINTESTINAL TRACT: Numerous diverticula in the sigmoid colon and to a lesser extent descending colon. No intestinal obstruction pattern. No ascites. No pneumoperitoneum. No pneumatosis intestinalis. I do not see the appendix. ABDOMINAL WALL: Small fat-containing umbilical hernia. Small fat-containing inguinal hernias. LYMPH NODES: No gross lymphadenopathy. VASCULAR: Mixed plaques throughout the abdominal aorta wall, iliac arteries, the origin of the mesenteric arteries and main renal arteries as well as the splenic artery.. OSSEOUS STRUCTURES: [Castellvi type I sacralization of multilevel thoracolumbar spondylosis. Large Schmorl node in the inferior endplate L2. Metallic prosthesis, left hip resulting in beam hardening artifact.. Calcified plaques in the coronary arteries. Calcified plaques in the thoracic aorta. CT/CT kidney stone IMPRESSION: Bilateral nonobstructing nephrolithiasis. Resolved/past calculus in the left ureter. No hydronephrosis. Other findings as noted above. FRANDY: 05/22/23-1145 STATUS: COMP REQ : [id number] RECD: 05/22/23-[address]: Rodrigo Carrion MD COMP: 06/01/23-2117 ENTERED: 05/22/23-[address]: Raji Amanda MD ORDERED: Kidney Stone QUERIES: Kidney Stone Source: [id number] Test Result Flag Reference Component 1 SEE NOTE Calcium Oxalate Dihydrate (Weddellite) 15% Calcium Oxalate Monohydrate (Whewellite) 70% Carbonate Apatite (Dahllite) 15% See Note 1 Stone Weight 0.002 g Note 1 This test was developed and its analytical performance characteristics have been determined by [facility]. It has not been cleared or approved by the FDA. This assay has been validated pursuant to the CLIA regulations and is used for clinical purposes. THIS TEST WAS PERFORMED AT: [facility] [address] [address] AMIRAH HOLLY MD Stone Source LEFT URETERAL STONE Date of Service: 08/02/23 US RETROPERITONEAL LIMITED (RENAL ONLY) CLINICAL INFORMATION: Calculus of kidney. COMPARISON: X-ray KUB 05/30/2023 and 05/08/2023. CT abdomen and pelvis 04/30/2023. Ultrasound abdomen complete 07/10/2022 and 01/10/2022. TECHNIQUE: Real-time imaging of the kidneys. No hydronephrosis. No renal calculi. Limited visualization. FINDINGS: RIGHT KIDNEY: 9.4 x 5.2 x 6.0 cm (SAG x AP x TRV). Multiple renal calculi measuring 4 mm lower pole, 7 mm lateral mid pole, and 4 mm lower pole. No hydronephrosis. Limited visualization. LEFT KIDNEY: 11.8 x 6.3 x 4.7 cm (SAG x AP x TRV). 3 mm lower pole and 3 mm mid pole calculi. Moderate hydronephrosis. Limited visualization. Renal cortical thickness is normal. IMPRESSION: Bilateral renal calculi. Moderate left hydronephrosis. Date of Service: 04/30/23 EXAMINATION: CT ABDOMEN AND PELVIS WITHOUT CONTRAST CLINICAL INFORMATION: Left flank pain. COMPARISON: CT abdomen pelvis dated 01/02/2021. TECHNIQUE: Multidetector volumetric imaging was performed from the superior aspect of the liver through the pubic symphysis. Sagittal and coronal reformatted images were obtained on the technologist's workstation. This CT examination was performed using dose optimization techniques as appropriate, variously including the following: *Automated exposure control *Adjustment of mA and/or kV according to patient size (this includes techniques or standardized protocols for targeted exams where dose is matched to indication/reason for exam; i.e. extremities or head) *Use of iterative reconstruction technique DLP: 864 mGy-cm FINDINGS: LUNG BASES: The lung bases are clear. Heart size is normal. There are coronary artery calcifications. LIVER, GALLBLADDER, AND BILIARY TREE: The liver is normal in size, shape, and attenuation. There are 2 stable low-attenuation lesions within the liver measuring 1.5 and 1.7 cm, respectively. Both likely represent simple cysts. No biliary ductal dilatation is present. There is a 1.8 cm gallstone. There is no gallbladder wall thickening or obvious pericholecystic inflammatory changes. PANCREAS: Unremarkable. SPLEEN: Unremarkable. ADRENAL GLANDS: Unremarkable. KIDNEYS AND URETERS: Right kidney and ureter: The right kidney is normal in size. There are multiple right renal calculi the majority of them are within the lower pole. The largest right renal calculus measures 6 mm. It measures approximately 318 Hounsfield units. There is no right perinephric stranding. No right hydronephrosis. No right ureteral calculus. Left kidney and ureter: The left kidney is normal in size. Left kidney contains multiple renal calculi. The largest is located within the interpolar region and measures 9 mm in length. This calculus measures 305 Hounsfield units. There is mild left hydronephrosis. There is moderate left perinephric stranding. There is an obstructing calculus within the proximal left ureter at the level of the superior endplate of the L3 vertebral body measuring 6 mm in length. The calculus measures 1047 Hounsfield units. There is left periureteric stranding. The distal left the ureter distal to this obstructing calculus is normal in appearance. BLADDER: The urinary bladder is minimally distended. There are no urinary bladder calculi. GASTROINTESTINAL TRACT: The small bowel and colon are normal in caliber. The appendix is not definitively identified, however, there are no inflammatory changes within the expected location of the appendix to suggest an acute inflammatory process. There is sigmoid colon diverticulosis without evidence of acute diverticulitis. ABDOMINAL WALL: No significant hernia is appreciated. LYMPH NODES: No retroperitoneal or pelvic lymphadenopathy. VASCULAR: No abdominal aortic aneurysm. Moderate vascular calcifications. PELVIC VISCERA: Unremarkable. OSSEOUS STRUCTURES: There is degenerative disease of the visualized spine. IMPRESSION: - There is an obstructing calculus within the proximal left ureter at the level of the superior endplate of the L3 vertebral body measuring 6 x 4 mm. The calculus measures 1047 Hounsfield units. There is left sided hydroureteronephrosis. There is left perinephric stranding. - There are bilateral nonobstructive renal calculi as described. - Stable hepatic cysts as described. - Cholelithiasis without evidence of acute cholecystitis. - Diverticulosis without evidence of acute diverticulitis. Assessment & Plan Assessment & Plan (1) Hypercalciuria: Code(s): R82.994 - Hypercalciuria Category: Medical (2) Bilateral kidney stones: Code(s): N20.0 - Calculus of kidney Category: Medical (3) Nephrolithiasis: Comment: Mixed calcium oxalate stones December 20202023 Code(s): N20.0 - Calculus of kidney Category: Medical (4) Erectile dysfunction: Code(s): N52.9 - Male erectile dysfunction, unspecified Category: Medical Plan Patient is on allopurinol. Will refer to Nephrology to re-evaluate medication therapy for hypercalciuria and kidney stone production. Follow-up with me in 6 months renal ultrasound at that time. Cont. Vit B6 100 mg daily. Continue tadalafil for ED. Orders: Orders AMB Urinalysis Automated Today Z13.9 - Encounter for screening, unspecified Referrals Nephrology Referral N20.0 - Calculus of kidney, R82.994 - Hypercalciuria Medications: Discontinued tamsulosin Discontinued Reason: Patient no longer taking 0.4 mg PO BEDTIME 7 days 7 caps 0RF Patient Instructions: The patient had an opportunity to ask questions regarding treatment plan. The patient expressed understanding and agreement with the above treatment plan. The patient is aware they should contact our office by phone for worsening of their current condition or the appearance of new symptoms. Compliance is encouraged with any medications and followup testing that is ordered. It is a privilege to be allowed the opportunity to participate in the urologic care of your patient. If you have any questions or concerns regarding treatment for the above conditions please do not hesitate to contact me. The office telephone contact is [phone]. This note is constructed in part using voice recognition software. While every effort has been made to ensure accuracy dietetic aide errors may have been included. Yours sincerely, Rodrigo Carrion MD Coding Level of Care Code Est Pt Level 4 (73457) Diagnoses Hypercalciuria R82.994 Bilateral kidney stones N20.0 Nephrolithiasis N20.0 Erectile dysfunction N52.9
--- OUTSIDE RECORDS SUMMARY | 2024-04-21 18:06 | XMS_ITS | Patient Health Record ---
Author Organization [facility] Address [address] [place] [address] Care Team Providers Care Relationship Counselor Name Role Phone Raji Amanda MD Primary Care Provider Sha Caballero Unavailable [phone] Allergies No Known Allergies Reason For Referral [...] W/U Status Risk Notes Problem Tinea unguium (215834535) Tinea unguium (B35.1) Active confirmed Vital Signs Height 6ft in 10/15/2023 Weight 248 lbs 10/15/2023 BMI 33.63 kg/m2 10/15/2023 Encounters Encounter Location Date Provider Diagnosis [facility] [address] [address] 10/15/2023 Sha Daugherty Tinea unguium B35.1 ; [...] [employer] [address] [place] [address] [id number] Gene Corrigan Self - patient is the insured [employer] [address] [place] [address] [phone] [id number] Gene Corrigan Self - patient is the insured Medical (General) History Medical History History ICD Code Gall bladder problems Hepatitis B Liver disease Measles Mumps Chicken pox Bone implants/screws Surgical History Surgery Date(Month/Year) left hip replacement 05/03/21 ankle surgery - Fracture ORIF, Right 04/27 024 vein surgery 05/2023 Hospitalization History Reason Date(Month/Year) [facility] [place] - Kidney stones 05/2023 [facility], Broken ankle 04/2023, 05/2023
--- OUTSIDE RECORDS SUMMARY | 2024-04-21 18:06 | XMS_ITS | Clinical Summary ---
Author Organization [facility] Address [address] [place] [address] Phone Care Team Providers Care Brass Plater Name Role Phone [employer] Primary Care Provider [phone] [facility] Unavailable [phone] Reason for Visit and Chief Complaint Established Patient Plan of Treatment 1. Continue OT/PT for right ankle. 2. Gait training with full weight right lower extremity. 3. Range of motion right ankle. 4. Activities of daily living. 5. Strengthening right ankle. 6. Return to office in 3 months for final visit and repeat x-ray right ankle - Last Documented On 07/02/2023 10:04AM ; [facility] Pending Tests Order Diagnosis Results Due Ordering Tarah pitt Follow Up - Appointment 3 Months Displ bi malleol fx r low leg, subs for clos fx w routn heal 07/02/23 Tavo Blanco MD Last Documented On 10:04AM ; [facility], Assessments Includes: Assessments from this encounter No Assessments Recorded Medical Equipment - Implanted Devices Includes: Current Devices No Medical Equipment Recorded Medications Includes: Medications discussed during this encounter and other current Medications Current Medications (continue as prescribed) Tylenol Oral Tablet 07/02/2023 Provider: Diagnosis: Last Documented On 8:15AM By Cam Levy ; [facility] Medications Administered Includes: Administered Medications from this encounter No Administered Medications Recorded Vital Signs Includes: Vital Signs from this encounter Vital Name 07/02/2023 08:13A Blood Pressure Sitting (mmHg) 121/72 Pulse Rate-Sitting (bpm) 116 Temp-Temporal 97.1 Weight (lb) 252 Oxygen Saturation (%) 95 Last Documented: On 07/02/2023 8:14AM ; [facility] Results Includes: Results discussed during this encounter No Results Recorded For Specified Dates History of Present Illness Includes: History of Present Illness from this encounter HPI The patient is a 77-year-old male. He slipped on some stairs and sustained a bimalleolar fracture of his right ankle. On 03/19/2023 he underwent open reduction internal fixation of the right medial malleolar fracture with two 2.7 millimeter screws. No fixation was provided for the fibula which was nondisplaced. He is here today for follow-up. It has been roughly 3 months since the surgery. Social History No Social History Recorded - Smoking Status Unknown Medical History Includes: Medical History addressed during this encounter No Medical History Recorded Family History Includes: Family History addressed during this encounter No Family History Recorded Review of Systems Includes: Review of Systems from this encounter 1. 3-months status post open reduction internal fixation of right medial malleolar fracture with two 2.7 millimeter screws. 2. Well-healed incision over medial aspect of right ankle. 3. Ambulating with full weight on right lower extremity. 4. Anatomic alignment of right medial malleolar fracture Mental Status Includes: Mental Status from this encounter No Mental Status Recorded Functional Status Includes: Functional Status from this encounter No Functional Status Recorded Physical Exam Includes: Physical Exam from this encounter Encounters Encounter Provider Location Date Check-In Time Check-Out Time Diagnosis Established Patient Tavo Blanco MD [facility] 07/02/19 24 8:20AM 8:27AM Insurance Includes: Active Insurance Policies Plan Name Member ID Group # Subscriber Relationship Effect yelena Dates 1 - Medicare Part B [facility] [id number] [facility] Self 2 - [employer] [id number] Gene Cordero Self 08/27/2015 - Unknown Clinical Notes Includes: Clinical Notes from this encounter * Progress note Date Encounter Last Documented by 07/02/2023 Established Patient Leandro espinoza on 07/02/2023; 10:04 AM, Tavo Blanco MD; [facility] Chief Complaint Closed displaced bimalleolar fracture right ankle History of Present Illness The patient is a 77-year-old male. He slipped on some stairs and sustained a bimalleolar fracture of his right ankle. On 03/19/2023 he underwent open reduction internal fixation of the right medial malleolar fracture with two 2.7 millimeter screws. No fixation was provided for the fibula which was nondisplaced. He is here today for follow-up. It has been roughly 3 months since the surgery. Current Medication - Tylenol Oral Tablet 0 days, 0 refills Physical Findings - Vitals taken 07/02/2023 08:13 am BP-Sitting 121/72 mmHg Pulse Rate-Sitting 116 bpm Temp-Temporal 97.1 F Weight 252 lbs Oxygen Saturation 95 % Well-healed incision over medial aspect of right ankle. Good range of motion of right ankle. Minimal swelling. Ambulates with full weight on right lower extremity. Neurovascular status right lower extremity intact. OB Ultrasound No x-rays taken today. User Defined 4 1. 3-months status post open reduction internal fixation of right medial malleolar fracture with two 2.7 millimeter screws. 2. Well-healed incision over medial aspect of right ankle. 3. Ambulating with full weight on right lower extremity. 4. Anatomic alignment of right medial malleolar fracture Plan StartCited - Displ bimalleol fx r low leg, subs for clos fx w routn heal Follow Up/Appointment: 3 Months EndCited 1. Continue OT/PT for right ankle. 2. Gait training with full weight right lower extremity. 3. Range of motion right ankle. 4. Activities of daily living. 5. Strengthening right ankle. 6. Return to office in 3 months for final visit and repeat x-ray right ankle
--- OUTSIDE RECORDS SUMMARY | 2024-04-21 18:07 | XMS_ITS ---
Author Organization [facility] Address [address] [place] [address] Care Team Providers Care Professor Of Family Medicine Name Role Phone Raji Amanda MD Primary Care Provider Adam Moraes Unavailable [phone] ALLERGIES No Known Allergies REASON FOR VISIT Patient presents today for chronic hep b MEDICATIONS Medication SIG (Take, Route, Fr equency, Duration) Notes Start Date End Date Status Entecavir 0.5 MG TAKE 1 TABLET BY SINA TH 1 TIME A DAY ON AN EMPTY STOMACH. 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 ; Gastroesophageal reflux disease with esophagitis, unspecified whether hemorrhage K21.00 and Other cirrhosis of liver K74.69 ASSESSMENTS Encounter Date Diagnosis Assessment Notes Treatment Notes Treatment Clinical Notes 02/06/2024 Chronic viral hepati tis B without delta agent and without coma (ICD-10 - B18.1) 02/06/2024 Gastroesophageal ref lux disease with esophagitis, unspecified whether hemorrhage (ICD-10 - K21.00) 02/06/2024 Other cirrhosis of liver (ICD-10 - K74.69) PLAN OF TREATMENT Pending Test Test Name Order Date CHEM 7 PROFILE 02/06/2024 LIVER PROFILE 02/06/2024 CBC w DIFF 02/06/2024 ALPHA-FETOPROTEIN,TUMOR MARKER HEPATITIS B E ANTIBODY 02/06/2024 HEPATITIS B E ANTIGEN 02/06/2024 Prothrombin Time INR 02/06/2024 Liver Fibrosis Pnl 02/06/2024 Hepatitis B Viral DNA Qn 02/06/2024 US abdomen comp w elastography Hepatitis B Profile 02/06/2024 Next Appt Details Follow Up: 1 Year, Reason: Provider Name:Adam Beebe , 02/11/2025 04:20:00 PM, [address], [address], [place], [address], Progress Notes * Examination Category Sub-Category Detail [...]
--- OUTSIDE RECORDS SUMMARY | 2024-04-21 18:07 | XMS_ITS | Encounter Summary ---
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 Name Role Phone Raji Amanda MD Primary Care Provider [phone] Reason for Referral * Imaging (Routine) - Authorized Specialty Diagnoses / Procedures Referred By Joey mancini Referred To Contact Radiology Diagnoses Lung nodule seen on imaging study Procedures CT Chest wo Contrast Mansi Sheriff PA [address] [place] [id number] Phone: tel: fax: [address] [phone] Phone: tel: Referral ID Status Reason Start Date Expiration Date V isits Requested Visits Authorized [id number] Authorized 03/31/2024 03/31/2025 1 1 Reason for Visit * Reason Comments Vomiting * Auth/Cert (Routine) Specialty Diagnoses / Procedures Referred By Joey t Referred To Contact Diagnoses Acute respiratory distress Tachycardia Dyspnea, unspecified type Procedures [facility] IP/OBS CARE INITIAL MODERATE LEVEL PER DAY . Leland Esteban MD [address] [place] [phone] Phone: tel: fax: [facility] [address] [place] [phone] Phone: tel: Referral ID Status Reason Start Date Expiration Date Visits Re quested Visits Authorized [id number] 1 1 Encounter Details Date Type Department Care Team (Late st Contact Info) Description 03/30/2024 8:24 AM EST - 03/31/2024 1:[address] [facility] [address] [place] [phone] Leodan Snider MD [address] [place] [address] Leland Esteban MD [address] [place] [address] Taras Block MD [address] [place] [address] Acute respiratory distress (Primary Dx); Tachycardia; Dyspnea, unspecified type; Lung nodule seen on imaging study Discharge Disposition: Home or Self Care Social History Tobacco Use Types Packs/Day Years Used Date Smoking Tobacco: Never Smokeless Tobacco: Never Tobacco Cessation:Counseling Given: Not Answered Alcohol Use Standard Drinks/Week Comments Not Currently 0 (1 standard drink = 0.6 oz pur e alcohol) Housing Instability Answer Date Recorde d Are you worried that in the next 2 months you may not have stable housing? No 03/31/2024 Food Access & Nutrition Answer Date Rec orded Do you have access to a vari ety of food including fruits and vegetables? Yes 03/31/2024 Health Literacy Answer Date Recorded How often do you need to hav e someone help you when you read instructions, pamphlets, or other written material from your doctor or pharmacy? Never 03/31/2024 Caregiver: How often do you need to have someone help you when you read instructions, pamphlets, or other written material from your doctor or pharmacy? Not on file 03/31/2024 Financial Risk Answer Date Recorded How hard is it for you to pa y for the very basics like food, housing, medical care, and air conditioning / heating? Not very hard 03/31/2024 Transportation Answer Date Recorded Has the lack of transportati on kept you from meetings, work, or from getting things needed for daily living? No Has the lack of transportati on kept you from medical appointments or from getting medications? No 03/31/2024 Social Isolation Answer Date Recorded How often do you feel lonely or isolated from th ose around you? Never 03/31/2024 Food Risk Answer Date Recorded Within the past 12 months we worried whether our food would run out before we got money to buy more. Never true 03/31/2024 Within the past 12 months th e food we bought just didn't last and we didn't have money to get more. Never true 03/31/2024 Dependent Care Answer Date Recorded Do you need help finding or paying for care for your loved ones. For example, children's tutor nursery or elderly care for an older adult? No 03/31/2024 Education Answer Date Recorded Do you think completing more education or training, like finishing a GED, going to college, or learning a trade, would be helpful for you? No 03/31/2024 Employment and Income Answer Date Recor ded During the last four weeks, have you been actively looking for work? No 03/31/2024 Living Situation Answer Date Recorded What is your living situation? 0 03/31/2024 Interpersonal Safety Answer Date Record ed Physical Abuse 03/31/2024 Verbal Abuse 03/31/2024 Sex and Gender Information Value Date Recorded Sex Assigned at Male 03/30/2024 8:43 AM EST Legal Sex Male 1:37 PM EDT Gender Identity Male 03/30/2024 8:43 AM EST Sexual Orientation Straight 03/31/2024 12 :12 AM EST documented as of this encounter Last Filed Vital Signs Vital Sign Reading Time Taken Comments Blood Pressure 118/49 03/31/2024 8:29 AM EST Pulse 63 03/31/2024 8:29 AM EST Temperature 36.6 ??C (97.9 ??F) 03/31/2024 8:29 AM ES T Respiratory Rate 18 03/31/2024 8:29 AM EST Oxygen Saturation 96% 03/31/2024 8:29 AM EST Inhaled Oxygen Concentration - - Weight 119 kg (262 lb) 03/30/2024 9:08 PM EST Height 182.9 cm (6') 03/30/2024 8:45 AM EST Body Mass Index 35.53 03/30/2024 8:45 AM EST documented in this encounter Discharge Summaries * TING Altamirano - 03/31/2024 10:44 AM EST Discharge Final Diagnosis: Tachycardia Hospital Course (include Reason for Hospitalization): 78 year old male with PMH of anxiety, chronic hepatitis B, GERD presents to the ED for nausea and vomiting Patient reported 5-7 episodes prior to arrival without hematemesis He awoke at midnight on 03/30 with episodes of vomiting hourly until 6 am until his partner told him to come to the ED He has not vomited since his ED presentation He had an episode of diarrhea without black/bloody stool Reports some difficulty breathing which was initially with emesis but now reports some at rest while in the hospital Denies any sick contacts, palpitations, chest pain, abdominal pain, dysuria, Denies cardiac histpry - had a stress test many years ago but denies significant outcome. Denies asthma or COPD, nonsmoker, no alcohol or drug use. Hx of CARMEN but states he was cured of it and no longer uses CPAP Denies leg edema or calf pain, no hx of clotting disorders. Vitals: Patient presented tachycardic 122, febrile 101.3, blood pressure 105/73, 94% on room air, respiratory rate 22 Labs: WBC 6.5, hemoglobin 15.1, hematocrit 46.4, platelets 119, glucose 106, creatinine 1.06, lipase 56. Troponin 9, BNP 75 Respiratory viral panel negative UA negative CTA Chest - No pulmonary embolism. No acute findings. Scattered small areas of air trapping in bothlungs noted on expiratory images. 3 mm right upper lobe pulmonary nodule. In the ED patient received 1 L normal saline x2, 500 normal saline bolus, zofran Sepsis secondary to norovirus Patient was tachycardic in the ED with rate 120s, Tmax is 101.3 ??F. Initially source of sepsis wasnot confirmed however patient found to have positive norovirus. Patient was given aggressive IV fluid resuscitation and admitted to telemetry overnight. Patient had drastic improvement in heart rate once his volume status was repleted. He had 2 isolated beats of SVT this morning that were asymptomatic. Patient clinically improving. Nausea and vomiting-norovirus 5-7 episodes prior to arrival and 1 episode in the ED on arrival ~ 14 hours ago Stools tested positive for norovirus. He continues to have loose stools but they are slowing down and firming up. He has not had any further nausea and vomiting. Patient tolerated a regular diet thismorning. He was educated on gastroenteritis. Patient should stick with a bland diet and consume 8 ounces of fluid or electrolyte replacement drink after every episode of diarrhea. Hand hygiene encouraged. 3 mm right upper lobe pulmonary nodule - No tobacco use history - Follow up CT outpatient in 3 months -Patient has no formal history of COPD but does endorse yearly URIs that resulted in prolonged cough that may be consistent with a chronic bronchitis situation. He does report some shortness of breath over the past several months. Recommend outpatient pulmonary consultation. Anxiety - Clonazepam 0.5 mg twice daily Hx chronic hepatitis B - Enectavir 0.5 mg daily GERD - Omeprazole 20 mg daily Gout - Allopurinol 100 mg daily Procedures Performed: CT ABD/PEL Impression: Impression: Bilateral lung base ground-glass disease Question acute versus chronic, question pneumonia No acute process in abdomen or pelvis This document has been electronically signed by: Ricardo Emery MD on CT ANGIO CHEST Impression: 1. This study was repeated secondary to suboptimal contrast bolus on the initial scan. 2. No pulmonary embolism. No acute findings. Scattered small areas of air trapping in both lungs noted on expiratory images. 3. 3 mm right upper lobe pulmonary nodule. This does not require further follow- up per current Ilene society recommendations in the absence of risk factors for lung cancer. If there are lung cancer risk factors, recommendations are for an optional follow-up CT in one year. Test Results Pending At Discharge: Pending Labs Order Current Status Culture blood Preliminary result Culture blood Preliminary result Issues Requiring Follow-Up Care: Chest CT in 3 months for right upper lobe pulmonary nodule 3 mm Recommend outpatient pulmonary consultation Outpatient Follow-Up Care: No future appointments. Discharge Medication List: Your medication list CONTINUE taking these medications Instructions Last Dose Given Next Dose Due allopurinoL 100 mg tablet Commonly known as: ZYLOPRIM Take 1 tablet (100 mg total) by mouth every other day. clonazePAM 0.5 mg tablet Commonly known as: KlonoPIN Take 1 tablet (0.5 mg total) by mouth 2 (two) times a day if needed for anxiety. entecavir 0.5 mg tablet Commonly known as: BARACLUDE Take 1 tablet (0.5 mg total) by mouth 1 (one) time each day. omeprazole [address] capsule Commonly known as: PriLOSEC Take 1 capsule (20 mg total) by mouth 1 (one) time each day. Patient Condition and Disposition at Time of Discharge: Physical Exam Constitutional: Appearance: Normal appearance. HENT: Head: Normocephalic and atraumatic. Mouth/Throat: Mouth: Mucous membranes are moist. Eyes: Extraocular Movements: Extraocular movements intact. Conjunctiva/sclera: Conjunctivae normal. Pupils: Pupils are equal, round, and reactive to light. Cardiovascular: Rate and Rhythm: Normal rate and regular rhythm. Pulmonary: Effort: Pulmonary effort is normal. Breath sounds: Normal breath sounds. No wheezing, rhonchi or rales. Abdominal: General: Bowel sounds are normal. There is no distension. Palpations: Abdomen is soft. There is no mass. Tenderness: There is no abdominal tenderness. There is no rebound. Musculoskeletal: General: Normal range of motion. Cervical back: Normal range of motion. Skin: General: Skin is warm. Neurological: General: No focal deficit present. Mental Status: He is alert and oriented to person, place, and time. Psychiatric: Mood and Affect: Mood normal. Discharge Instructions: Discharge Procedure Orders CT Chest wo Contrast Standing Status: Future Standing Exp. Date: 03/31/25 Order Specific Question Answer Comments What is the patient's sedation requirement? No Sedation In what REGION should this be scheduled? [facility] [[id number]] In what Brenda LOCATION should this be scheduled? [facility] [[id number]] More than 30 minutes spent reviewing overnight events, independently interpreting telemetry monitoring, evaluating the patient, coordinating care with ICC, RN and attending physician. Cosigned by Taras Block MD at 04/02/2024 3:56 PM EST Associated attestation - Taras Block MD - 04/02/2024 3:56 PM EST This is a split/shared visit with TING Altamirano. I personally performed the medical decision making (MDM) for the care of this patient as documentedbelow Patient was discussed with advanced practitioner . I personally saw and examined the patient bedside. Chart was reviewed by me personally including relevant history, updates, labs, imaging. Agree with the documentation and plan as above except mentioned below. 78 years old male presents to the hospital with nausea vomiting and diarrhea. -Norovirus infection -Patient found to have positive norovirus infection. He was treated symptomatically. Including isolation precaution, hydration, as needed medications. -Significant improvement in symptoms. Medically stable for discharge. Outpatient follow-up with PCP Taras Block MD 04/02/24 3:56 PM EST documented in this encounter Discharge Instructions * Discharge Instructions* TING Altamirnao - 03/31/2024 9:20 AM EST Your GI symptoms were from the NOROVIRUS a highly contagious stomach bug . Each time you have an episode of diarrhea we recommend you consume 8oz of an electrolyte beverage such as gatorade/vitamin water etc to remain hydrated and replace the loss of electrolytes. Stick with a bland diet until symptoms resolve. You were incidentally found to have a Right upper lobe lung nodule that is 3 mm. A f/u CT of the chest is recommended in 3 mths to see if it resolves. * Attachments The following attachments cannot be sent through Care Everywhere. * Gastroenteritis (Kinyarwanda) documented in this encounter Medications at Time of Discharge allopurinoL (ZYLOPRIM) 100 mg tablet Take 1 tablet (100 mg total) by mouth every other day. 04/14/2021 clonazePAM (KlonoPIN) 0.5 mg tablet Take 1 tablet (0.5 mg total) by mouth 2 (two) times a day if needed for anxiety. entecavir (BARACLUDE) 0.5 mg tablet Take 1 tablet (0.5 mg total) by mouth 1 (one) time each day. 04/14/2021 omeprazole (PriLOSEC) [address] capsule Take 1 capsule (20 mg total) by mouth 1 (one) time each day. documented as of this encounter Discharge Disposition Disposition Code Departure Means Destination Comment s Home or Self Care documented in this encounter Progress Notes * Ginny Bautista RN - 03/31/2024 12:10 PM EST 03/31/24 1210 Transportation What day is the transport expected? 03/31/24 Final Discharge Disposition Home or Self Care Pt d/c home with self care * Leodan Snider MD - 03/31/2024 8:41 AM EST This is a split/shared visit with Leodan Snider MD. I personally performed the medical decision making (MDM) for the care of this patient on 03/30/2024 as documented below 78-year-old male received in signout for persistent resting tachycardia. Patient still having episodes of sinus tachycardia with minimal exertion after fluid resuscitation. Had a transient measured fever of unclear source. Since full sepsis workup initiated including blood cultures. Patient will beadmitted for rule out heart failure. Leodan Snider MD 03/31/24 8:41 AM EST ED Course as of 03/31/24 0841 Sun Mar 30, 2024 0928 EKG showing normal sinus rhythm sinus tachycardia at [address] segment changes or T wave inversions identified, some diffuse artifact makes interpretation somewhat limited, relatively unchanged compared to prior EKG however from 03/18/2023 [CC] 0957 Labs without significant leukocytosis or anemia. Electrolytes renal function liver function studies are reassuring. Lipase within normal limits at 56. [CC] 1111 Patient feeling better after medication administration here. Tolerating fluids by mouth. [CC] 1410 Patient seen again, has been persistently tachycardic on telemetry monitoring despite 2 L normal saline. Will additional another 500 cc bolus and reevaluate. Still got a tachypneic rate of breathing and Persistent tachycardia, for these reasons I will order CT of the chest to further evaluate for potential etiology of tachycardia and tachypnea that may not be explained with presentation of intractable nausea and vomiting. [CC] 2003 Patient continues to be tachycardic with shortness of breath.. Patient given multiple liters of fluid chest x-ray and labs are unremarkable. Care transferred to hospitalist service. Further evaluation and treatment. CTA of chest is unremarkable. O2 sat is stable EKG is unremarkable. TSH pending. [RH] ED Course User Index [CC] TING Zepeda [RH] TING Rudolph Clinical Impressions as of 03/31/24 0841 Acute respiratory distress Tachycardia Dyspnea, unspecified type Admit to Inpatient 1. Acute respiratory distress CT Angio Chest wo and/or w Contrast CT Angio Chest wo and/or w Contrast 2. Tachycardia 3. Dyspnea, unspecified type Procedures * Elidia Cutler RN - 03/30/2024 8:40 PM EST ED RN HANDOFF (All Bedolla Below Must Be Completed) Reason/Diagnosis for Admission: tachycardia Type of Admission: [] Medsurg, [x] Telemetry Already in a Hospital Bed: [] Yes / [x] No Room Considerations/Precautions (ex: fever, diarrhea, or any infectious concerns): [] Yes / [x] No Decal Transferrer: [x] Yes / [] No If YES, Cardiac Rhythm: [] NSR, [] SB, [x] ST, [] A-FIB, [] A-Flutter, [] Pacemaker, [] 1st Degree HB, [] 2nd Degree HB, [] 3rd Degree HB Reason for Decal Transferrer: VS: Visit Vitals BP 105/73 Pulse 94 Temp 36.5 ??C (97.7 ??F) (Oral) Resp 26 Ht 1.829 m (72 ) Wt 118 kg (260 lb) SpO2 94% BMI 35.26 kg/m?? BSA 2.38 m?? Current Mental Status: A/O x [x]4, []3, []2, []1 Current Ambulation Status: walker IV Access: [x] Yes / [] No Field IV present: [] Yes / [x] No Hx of Violence: [] Yes / [x] No / [] Unknown Fall Risk:[x] Yes / [] No Yellow Bracelet Applied [x] Yes / [] No Yellow Socks Applied [x] Yes / [] No Patient Belongings inventoried and BL completed: [x] Yes / [] No Patient belongings stored in the security closet: [] Yes (If Yes please supply Security bag #): [x] No Patient Medications stored in Pharmacy: [] Yes (If Yes please supply Medication Security bag #): [x] No ED Summary of Care: pt here for N/V but having ongoing tachycardia in 100-110's and SOB on exertion. Ambulatory to bathroom with walker. 95% On RA. CT neg. Has gotten 2.5L NS today Submitted by and Phone Extension: * Lupe Townsend RN - 03/30/2024 4:53 PM EST Pt found to be febrile at 101.3. Patient complaining of difficulty breathing. Lungs clear in all bases. Oxygen saturation 95% on room air. Labored respirations noted with activity. Dr. Snider made aware. No new orders at this michael. * Sobeida Virk RN - 03/30/2024 8:25 AM EST Pt c/o vomiting and diarrhea that started at midnight documented in this encounter H&P Notes * TING Nieves - 03/30/2024 8:20 PM EST Images from the original note were not included. ANGELLA HISTORY AND PHYSICAL Please contact author [TING Lara] via BetUknow/Modify. Patient: Gene Cordero Admission Date/Time: 03/30/2024 8:24 AM : 1945 [78 y.o.] Patient's PCP: Raji Amanda MD Attending Provider: Leodan Snider MD;Leland* CHIEF COMPLAINT: Nausea and diarrhea HPI: 78 year old male with PMH of anxiety, chronic hepatitis B, GERD presents to the ED for nausea and vomiting Patient reported 5-7 episodes prior to arrival without hematemesis He awoke at midnight on 03/30 with episodes of vomiting hourly until 6 am until his partner told him to come to the ED He has not vomited since his ED presentation He had an episode of diarrhea without black/bloody stool Reports some difficulty breathing which was initially with emesis but now reports some at rest while in the hospital Denies any sick contacts, palpitations, chest pain, abdominal pain, dysuria, Denies cardiac histpry - had a stress test many years ago but denies significant outcome. Denies asthma or COPD, nonsmoker, no alcohol or drug use. Hx of CARMEN but states he was cured of it and no longer uses CPAP Denies leg edema or calf pain, no hx of clotting disorders. Vitals: Patient presented tachycardic 122, febrile 101.3, blood pressure 105/73, 94% on room air, respiratory rate 22 Labs: WBC 6.5, hemoglobin 15.1, hematocrit 46.4, platelets 119, glucose 106, creatinine 1.06, lipase 56. Troponin 9, BNP 75 Respiratory viral panel negative UA negative CTA Chest - No pulmonary embolism. No acute findings. Scattered small areas of air trapping in bothlungs noted on expiratory images. 3 mm right upper lobe pulmonary nodule. In the ED patient received 1 L normal saline x2, 500 normal saline bolus, zofran ROS Negative except noted in HPI ALLERGIES: NKDA HOME MEDICATIONS: Clonazepam 0.5 mg twice daily Enectavir 0.5 mg daily Omeprazole 20 mg daily Allopurinol 100 mg daily PAST MEDICAL HISTORY: Anxiety GERD Hypertension Chronic viral hepatitis B Thrombocytopenia Hx kidney stones SURGICAL HISTORY: Left total hip arthroplasty ORIF ankle Appendectomy Tonsillectomy SOCIAL HISTORY: Tobacco use - Never a smoker Alcohol use - Denies Illicit drug use - Denies Mobility - Independent ADLs - Independent FAMILY HISTORY: Father was a lifelong smoker, of heart attack PHYSICAL EXAM: GENERAL: 78 year old male resting in bed, NAD. Does appears slightly SOB with conversation at rest HEENT: Normocephalic. EOM intact. PERRL, dry MM. CARDIAC: RRR. No murmur, rubs, gallops. Euvolemic. PULMONARY: Lungs clear bilaterally, normal respiratory rate. No wheeze/rales. GI: Soft, nontender, nondistended, normoactive bowel sounds x4. : No suprapubic tenderness MSK: Moves all extremities, full ROM. No joint deformity. 5/5 bilaterally NEURO: Pleasant, A&Ox4 SKIN: Appears clean dry and intact. RESULTS/IMAGING: CT Angio Chest wo and/or w Contrast [[id number]] Collected: 03/30/24 1437 Order Status: Completed Updated: 03/30/24 1458 Narrative: PROCEDURE: CT pulmonary angiogram. HISTORY: Chest pain, nonspecific PE suspected, high prob. TECHNIQUE: CT of the chest with intravenous contrast administration with pulmonary angiogram protocol. Coronal and sagittal reformats and MIP reconstructions were created. Dose length product: 1517 mGy-cm. Contrast dose: Total of 150 mL [id number]. COMPARISON: None. FINDINGS: This study was repeated due to a poor contrast bolus on the initial scan. Lungs/pleura: The central airways are normal in caliber. Dependent linear and groundglass opacitiesin both lower lobes suggestive of atelectasis. Small areas of air trapping throughout both lungs evident on the 2nd scan, which was performed with low lung volumes. Mild dependent atelectasis at the bases. No pleural effusion or pneumothorax. There is a 3 mm nodule in the posterior right upper lobe, series 7 image 154. Mediastinum/edie: No mass or lymphadenopathy. Vasculature: Normal caliber pulmonary arteries. No pulmonary embolism. Mild atherosclerotic calcification of the great vessels. Cardiac: Mild cardiomegaly. Moderate coronary artery calcification. Chest wall: No axillary or supraclavicular lymphadenopathy. Limited abdomen: Hepatic cysts. 1.5 cm calcified stone in the gallbladder neck atherosclerotic calcifications. Mild degenerative changes of the shoulders and spine. Bones: Unremarkable. Impression: 1. This study was repeated secondary to suboptimal contrast bolus on the initial scan. 2. No pulmonary embolism. No acute findings. Scattered small areas of air trapping in both lungs noted on expiratory images. 3. 3 mm right upper lobe pulmonary nodule. This does not require further follow- up per current Ilene society recommendations in the absence of risk factors for lung cancer. If there are lung cancer risk factors, recommendations are for an optional follow-up CT in one year. -------- FINAL REPORT -------- Dictated By: Michael Espinoza Dictated Date: 03/30/2024 14:37 ET Assigned Physician: Michael Espinoza Reviewed and Electronically Signed By: Michael Espinoza Signed Date: 03/30/2024 14:53 ET Workstation ID: [id number] Transcribed By: Self Edit Transcribed Date: 03/30/2024 14:48 ET ASSESSMENT AND PLAN: Sinus tachycardia Patient was tachycardic in the ED with rate 120s Received 2.5L normal saline boluses in the ED without significant improvement Rule out sepsis - no source for tachycardia so far - CTA Chest without acute infection, UA and respiratory viral panel negative - CT Abd/Pelvis ordered, pending - Lactic, TSH/T4, and Blood culture x2 added on, pending - IV fluids - Monitor on telemetry - Consider cardiology consult if no improvement - AM labs Nausea and vomiting 5-7 episodes prior to arrival and 1 episode in the ED on arrival ~ 14 hours ago - Continue IVF and work up as above - Clear liquid diet, advance as tolerated 3 mm right upper lobe pulmonary nodule - No tobacco use history - Follow up CT outpatient Anxiety - Clonazepam 0.5 mg twice daily Hx chronic hepatitis B - Enectavir 0.5 mg daily GERD - Omeprazole 20 mg daily Gout - Allopurinol 100 mg daily FULL CODE HCP: Dolores, partner [phone] PPX: Pneumoboots Case and plan discussed with: Dr. Esteban 75 minutes or greater was spent on performing a medically appropriate history and physical examination, review of laboratory and radiology data requiring a high level of medical decision making. Cosigned by Leland Esteban MD at 03/31/2024 6:38 AM EST Associated attestation - Leland Esteban MD - 03/31/2024 6:38 AM EST I have personally seen and examined the patient with the resident/PA/OPENSTACK CLOUD CONSULTING ARCHITECT and terrazas elements of all parts of the encounter were performed by me. Patient was reassessed on more than one occasion when required. I reviewed the interval history, interpreted all available radiographic, laboratory and physiological data at the time of service. I agree with the assessment and plan as documented by the resident/PA/OPENSTACK CLOUD CONSULTING ARCHITECT with additions. 78-year-old male coming into the hospital with chief complaint of fever and difficulty breathing. Patient found to have met sepsis criteria on presentation because of tachycardia and being febrile. Rule out pulmonary embolism. No clear source of infection identified. Will get CT abdomen and pelvis with IV contrast to identify a source. Continue with IV fluids. Will check blood cultures. Monitor off of antibiotics for now. Tylenol for pain and fever. Patient did not have any abdominal tendernesson exam. Nontoxic-appearing. Additional records from previous providers were reviewed in detail. Case was discussed with shadowgraph operator as well. I spent greater than 80 minutes caring for this patient today with greater than 50% of the time spent in direct [id number] care/counseling/coordination with senior staff psychologist, consultants, and reviewing patient chart. Leland Esteban MD [employer] Hospitalist, 7am-7pm Available thru tiger text After 7pm, please tiger text cross coverage 03/31/2024 6:38 AM EST documented in this encounter Plan of Treatment Scheduled Orders Name Type Priority Associated Diagnoses Orde r Schedule CT Chest wo Contrast Imaging Routine Lung nodule seen on imaging study Expected: 06/28/2024, Expires: 03/31/2025 documented as of this encounter Procedures Procedure Name Priority Date/Time Associated Diagnosis Comments CBC WITH AUTO DIFFERENTIAL Routine 03/31/2024 6:05 AM EST CBC AND DIFFERENTIAL Routine 03/31/2024 6:05 AM EST MAGNESIUM Routine 03/31/2024 6:05 AM EST COMPREHENSIVE METABOLIC PANEL STAT Add-on 03/31/2024 6:05 AM EST BASIC METABOLIC PANEL Routine 03/31/2024 6:05 AM EST GASTROINTESTINAL PATHOGENS BY PCR Routine 03/31/2024 12:[address] ABDOMEN PELVIS W CONTRAST Routine 03/30/2024 10:16 PM EST CULTURE BLOOD Routine 03/30/2024 9:37 PM EST CULTURE BLOOD Routine 03/30/2024 9:30 PM EST LACTATE, WITH REFLEX Routine 03/30/2024 9:29 PM EST URINALYSIS WITH REFLEX MICROSCOPIC STAT 03/30/2024 4:22 PM EST URINALYSIS WITH REFLEX MICROSCOPIC STAT 03/30/2024 4:22 PM EST TROPONIN I HIGH SENSITIVITY STAT 03/30/2024 3:21 PM EST B-TYPE NATRIURETIC PEPTIDE STAT 03/30/2024 3:[address] ANGIO CHEST WO AND/OR W CONTRAST STAT 03/30/2024 2:34 PM EST Acute respiratory distress RESPIRATORY VIRUS PANEL MOLECULAR STUDY STAT 03/30/2024 11:59 AM EST ECG 12-LEAD Routine 03/30/2024 9:24 AM EST THYROID STIMULATING HORMONE WITH REFLEX TO FREE T4 AND FREE T3 STAT Add-on 03/30/2024 8:38 AM EST FREE THYROXINE WITH REFLEX TO FREE TRIIODOTHYRONINE STAT 03/30/2024 8:38 AM EST CBC WITH AUTO DIFFERENTIAL STAT 03/30/2024 8:38 AM EST CBC AND DIFFERENTIAL STAT 03/30/2024 8:38 AM EST TRIIODOTHYRONINE FREE STAT 03/30/2024 8:38 AM EST LIPASE STAT 03/30/2024 8:38 AM EST COMPREHENSIVE METABOLIC PANEL STAT 03/30/2024 8:38 AM EST ECG ANNOTATED 03/30/2024 documented in this encounter Results * (ABNORMAL) Comprehensive metabolic panel (03/31/2024 6:05 AM EST) [facility] Sodium 137 133 - 145 mmol/L LAB CHEMISTRY METHOD 03/31/2024 8:23 AM [facility] Potassium 3.8 3.5 - 5.5 mmol/L LAB CHEMISTRY METHOD 03/31/2024 8:23 AM [facility] Chloride 108 96 - 110 mmol/L LAB CHEMISTRY METHOD 03/31/2024 8:23 AM [facility] CO2 27 21 - 32 mmol/L LAB CHEMISTRY METHOD 03/31/2024 8:23 AM [facility] Anion Gap 2(L) 3 - 11 LAB CHEMISTRY METHOD 03/31/2024 8:23 AM [facility] Glucose 90 70 - 100 mg/dL LAB CHEMISTRY METHOD 03/31/2024 8:23 AM [facility] BUN 20 5 - 25 mg/dL LAB CHEMISTRY METHOD 03/31/2024 8:23 AM [facility] Creatinine 0.99 0.70 - 1.30 mg/dL LAB CHEMISTRY METHOD 03/31/2024 8:23 AM [facility] eGFR 77 >=60 mL/min/1. 73m2 LAB CHEMISTRY METHOD 03/31/2024 8:23 AM [facility] Comment:Calculation based on the??Chronic Kidney Disease Epidemiology Collaboration (CKD-EPI) equation refit??without adjustment for race. BUN/Creatinine Ratio 20.2 LAB CHEMISTRY METHOD 03/31/2024 8:23 AM [facility] Calcium 7.9(L) 8.5 - 10.5 mg/dL LAB CHEMISTRY METHOD 03/31/2024 8:23 AM [facility] AST (SGOT) 29 10 - 42 unit/L LAB CHEMISTRY METHOD 03/31/2024 8:23 AM [facility] ALT (SGPT) 24 10 - 60 unit/L LAB CHEMISTRY METHOD 03/31/2024 8:23 AM [facility] Alkaline Phosphatase 72 42 - 121 unit/L LAB CHEMISTRY METHOD 03/31/2024 8:23 AM EST [facility] Total Protein 5.7(L) 6.0 - 8.0 g/dL LAB CHEMISTRY METHOD 03/31/2024 8:23 AM [facility] Albumin 2.9(L) 3.2 - 5.0 g/dL LAB CHEMISTRY METHOD 03/31/2024 8:23 AM [facility] Total Bilirubin 1.3 0.0 - 1.4 mg/dL LAB CHEMISTRY METHOD 03/31/2024 8:23 AM [facility] Blood Venous blood specimen / Unknown Venipuncture / Unknown 03/31/2024 6:05 AM EST 03/31/2024 7:14 AM EST Mansi MAGUIRE LAB BLOOD ORDERABLES Final Result [facility] [address] [place] [address], * (ABNORMAL) CBC auto differential (03/31/2024 6:05 AM EST) WBC 4.0(L) 4.8 - 10.8 K/mcL LAB HEMETOLOGY METHOD 03/31/2024 8:24 AM [facility] RBC 4.30(L) 4.50 - 5.50 M/mcL LAB HEMETOLOGY METHOD 03/31/2024 8:24 AM [facility] Hemoglobin 11.8(L) 13.5 - 17.5 g/dL LAB HEMETOLOGY METHOD 03/31/2024 8:24 AM [facility] Hematocrit 37.1(L) 42.0 - 54.0 % LAB HEMETOLOGY METHOD 03/31/2024 8:24 AM [facility] MCV 87.1 79.0 - 98.0 FL LAB HEMETOLOGY METHOD 03/31/2024 8:24 AM [facility] MCH 27.7 27.0 - 32.0 pcg LAB HEMETOLOGY METHOD 03/31/2024 8:24 AM [facility] MCHC 31.8(L) 32.0 - 37.0 g/dL LAB HEMETOLOGY METHOD 03/31/2024 8:24 AM [facility] RDW 15.6(H) 11.0 - 15.0 % LAB HEMETOLOGY METHOD 03/31/2024 8:24 AM [facility] Platelets 88(L) 130 - 400 K/mcL LAB HEMETOLOGY METHOD 03/31/2024 8:24 AM [facility] Comment:reviewed by slide MPV 12.1(H) 7.0 - 11.0 FL LAB HEMETOLOGY METHOD 03/31/2024 8:24 AM [facility] NRBC 0.0 <1.0 % LAB HEMETOLOGY METHOD 03/31/2024 8:24 AM [facility] NRBC Absolute 0.00 <0.10 K/mcL LAB HEMETOLOGY METHOD 03/31/2024 8:24 AM [facility] Neutrophils Relative 79.3 % LAB HEMETOLOGY METHOD 03/31/2024 8:24 AM [facility] Lymphocytes Relative 9.9 % LAB HEMETOLOGY METHOD 03/31/2024 8:24 AM [facility] Monocytes Relative 10.4 % LAB HEMETOLOGY METHOD 03/31/2024 8:24 AM [facility] Eosinophils Relative 0.0 % LAB HEMETOLOGY METHOD 03/31/2024 8:24 AM [facility] Basophils Relative 0.2 % LAB HEMETOLOGY METHOD 03/31/2024 8:24 AM [facility] Immature Granulocytes Relative 0.2 % LAB HEMETOLOGY METHOD 03/31/2024 8:24 AM [facility] Neutrophils Absolute 3.20 1.50 - 7.00 K/[facility] LAB HEMETOLOGY METHOD 03/31/2024 8:24 AM EST [facility] Lymphocytes Absolute 0.40(L) 1.00 - 5.00 K/[facility] LAB HEMETOLOGY METHOD 03/31/2024 8:24 AM EST [facility] Monocytes Absolute 0.42 0.20 - 1.00 K/[facility] LAB HEMETOLOGY METHOD 03/31/2024 8:24 AM EST [facility] Eosinophils Absolute 0.00 0.00 - 0.50 K/[facility] LAB HEMETOLOGY METHOD 03/31/2024 8:24 AM EST [facility] Basophils Absolute 0.01 0.00 - 0.20 K/[facility] LAB HEMETOLOGY METHOD 03/31/2024 8:24 AM EST [facility] Immature Granulocytes Absolute 0.01 0.00 - 0.03 K/[facility] LAB HEMETOLOGY METHOD 03/31/2024 8:24 AM EST [facility] Blood Venous blood specimen / Unknown Venipuncture / Unknown 03/31/2024 6:05 AM EST 03/31/2024 7:14 AM EST Leland Esteban MD LAB BLOOD ORDERABLES Final Res ult [facility] [address] [place] [address], * (ABNORMAL) Magnesium (03/31/2024 6:05 AM EST) Magnesium 1.7(L) 1.9 - 2.6 mg/dL LAB CHEMISTRY METHOD 03/31/2024 7:52 AM EST [facility] Blood Venous blood specimen / Unknown Venipuncture / Unknown 03/31/2024 6:05 AM EST 03/31/2024 7:14 AM EST us Leland Esteban MD LAB BLOOD ORDERABLES Final Res ult [facility] [address] [place] [address], [place] [phone] * (ABNORMAL) Basic metabolic panel (03/31/2024 6:05 AM EST) Sodium 139 133 - 145 mmol/L LAB CHEMISTRY METHOD 03/31/2024 7:52 AM [facility] Potassium 3.8 3.5 - 5.5 mmol/L LAB CHEMISTRY METHOD 03/31/2024 7:52 AM [facility] Chloride 108 96 - 110 mmol/L LAB CHEMISTRY METHOD 03/31/2024 7:52 AM [facility] CO2 27 21 - 32 mmol/L LAB CHEMISTRY METHOD 03/31/2024 7:52 AM [facility] Anion Gap 4 3 - 11 LAB CHEMISTRY METHOD 03/31/2024 7:52 AM [facility] Glucose 93 70 - 100 mg/dL LAB CHEMISTRY METHOD 03/31/2024 7:52 AM [facility] BUN 19 5 - 25 mg/dL LAB CHEMISTRY METHOD 03/31/2024 7:52 AM [facility] Creatinine 0.99 0.70 - 1.30 mg/dL LAB CHEMISTRY METHOD 03/31/2024 7:52 AM [facility] eGFR 77 >=60 mL/min/1. 73m2 LAB CHEMISTRY METHOD 03/31/2024 7:52 AM [facility] Comment:Calculation based on the??Chronic Kidney Disease Epidemiology Collaboration (CKD-EPI) equation refit??without adjustment for race. BUN/Creatinine Ratio 19.2 LAB CHEMISTRY METHOD 03/31/2024 7:52 AM [facility] Calcium 7.9(L) 8.5 - 10.5 mg/dL LAB CHEMISTRY METHOD 03/31/2024 7:52 AM EST [facility] Blood Venous blood specimen / Unknown Venipuncture / Unknown 03/31/2024 6:05 AM EST 03/31/2024 7:14 AM EST us Leland Esteban MD LAB BLOOD ORDERABLES Final Res ult [facility] [address] [place] [address], [place] [phone] * (ABNORMAL) Gastrointestinal pathogens molecular study (03/31/2024 12:39 AM EST) Campylobacter Detection by PCR Not Detected Not Detected LAB MICROBIOLOGY METHOD 5 2:10 AM [facility] Plesiomonas shigelloides Detection by PCR Not Detected Not Detected LAB MICROBIOLOGY METHOD 5 2:10 AM [facility] Salmonella Detection by PCR Not Detected Not Detected LAB MICROBIOLOGY METHOD 5 2:10 AM [facility] Vibrio Detection by PCR Not Detected Not Detected LAB MICROBIOLOGY METHOD 5 2:10 AM [facility] Vibrio cholerae Detection by PCR Not Detected Not Detected LAB MICROBIOLOGY METHOD 5 2:10 AM [facility] Yersinia enterocolitica Detection by PCR Not Detected Not Detected LAB MICROBIOLOGY METHOD 5 2:10 AM [facility] Enteroaggregative E coli EAEC Detection by PCR Not Detected Not Detected LAB MICROBIOLOGY METHOD 5 2:10 AM [facility] Enteropathogenic E coli EPEC Detection Not Detected Not Detected LAB MICROBIOLOGY METHOD 5 2:10 AM [facility] Enterotoxigenic E coli ETEC LTST Detection Not Detected Not Detected LAB MICROBIOLOGY METHOD 5 2:10 AM [facility] Shiga-like toxin producing E coli STEC STX1 STX2 Det Not Detected Not Detected LAB MICROBIOLOGY METHOD 5 2:10 AM [facility] Shigella Enteroinvasive E coli EIEC Detection Not Detected Not Detected LAB MICROBIOLOGY METHOD 5 2:10 AM [facility] Cryptosporidium Detection by PCR Not Detected Not Detected LAB MICROBIOLOGY METHOD 5 2:10 AM [facility] Cyclospora cayetanensis Detection by PCR Not Detected Not Detected LAB MICROBIOLOGY METHOD 5 2:10 AM [facility] Entamoeba histolytica Detection by PCR Not Detected Not Detected LAB MICROBIOLOGY METHOD 5 2:10 AM [facility] Giardia lamblia Detection by PCR Not Detected Not Detected LAB MICROBIOLOGY METHOD 5 2:10 AM [facility] Adenovirus F 40 41 Detection by PCR Not Detected Not Detected LAB MICROBIOLOGY METHOD 5 2:10 AM [facility] Astrovirus Detection by PCR Not Detected Not Detected LAB MICROBIOLOGY METHOD 5 2:10 AM [facility] Norovirus GI GII Detection by PCR Detected(A ) Not Detected LAB MICROBIOLOGY METHOD 5 2:10 AM [facility] Sapovirus Detection by PCR Not Detected Not Detected LAB MICROBIOLOGY METHOD 5 2:10 AM [facility] Rotavirus A Detection by PCR Not Detected Not Detected LAB MICROBIOLOGY METHOD 5 2:10 AM [facility] Stool Rectum structure / Unknown Non-blood Collection / Unknown 03/31/2024 12:39 AM EST 03/31/2024 12:48 AM [facility] - 03/31/2024 2:10 AM EST PCR testing is much more sensitive than traditional techniques and allows for the detection of low numbers of stool pathogens. The clinical correlation of PCR results with the need for treatment and clinical outcomes has not been established. Therefore the results of PCR testing for stool pathogens must be taken into clinical context when making treatment decisions. This is a diagnostic test only, repeat testing for cure is not advised. You may consider infectious disease consult for additional guidance. ??Testing Performed by MULTIPLEXED PCR us Marine MAGUIRE LAB MICROBIOLOGY - GENE RAL ORDERABLES Final Result [facility] ([facility] [address] [place] [address], * CT Abdomen Pelvis w Contrast (03/30/2024 10:16 PM EST) Anatomical Region Laterality Modality Body Computed Tomogra phy 03/30/2024 10:4 2 PM EST Impressions 03/30/2024 10:42 PM EST Impression: Bilateral lung base ground-glass disease Question acute versus chronic, question pneumonia No acute process in abdomen or pelvis This document has been electronically signed by: Ricardo Emery MD on 03/30/2024 22:42:38 Narrative 03/30/2024 10:[address] abdomen and pelvis with contrast Comparison: None Findings: Bilateral lung base ground-glass densities are nonspecific. Question pneumonia, please correlate. Medial left lower lobe atelectasis noted. Degenerative change lumbar spine and right hip. Left hip prosthesis. No acute bony abnormality. Hepatomegaly with nodular borders of liver Findings are consistent with cirrhosis of the liver. Scattered small hepatic cysts noted. Pancreas, Spleen and adrenal glands unremarkable. Cholelithiasis without gallbladder distention. There is contrast within bilateral collecting systems. Study performed in late phase excretion. Small renal stones would not be excludable. No ureteral stones or hydronephrosis. Abdominal aorta is normal in caliber. No free fluid or adenopathy in the pelvis. No diverticulitis. Appendix not identified. Procedure Note Ricardo Emery MD - 03/30/2024 CT abdomen and pelvis with contrast Comparison: None Findings: Bilateral lung base ground-glass densities are nonspecific. Question pneumonia, please correlate. Medial left lower lobe atelectasis noted. Degenerative change lumbar spine and right hip. Left hip prosthesis. No acute bony abnormality. Hepatomegaly with nodular borders of liver Findings are consistent with cirrhosis of the liver. Scattered small hepatic cysts noted. Pancreas, Spleen and adrenal glands unremarkable. Cholelithiasis without gallbladder distention. There is contrast within bilateral collecting systems. Study performed in late phase excretion. Small renal stones would not be excludable. No ureteral stones or hydronephrosis. Abdominal aorta is normal in caliber. No free fluid or adenopathy in the pelvis. No diverticulitis. Appendix not identified. IMPRESSION: Impression: Bilateral lung base ground-glass disease Question acute versus chronic, question pneumonia No acute process in abdomen or pelvis This document has been electronically signed by: Ricardo Emery MD on 03/30/2024 22:42:38 Leland Esteban MD IMG CT PROCEDURES Final Result * Culture blood (03/30/2024 9:37 PM EST) Culture, Blood No growth at 5 days 04/04/2024 11:01 PM EST [facility] Blood Venous blood specimen / Unknown Venipuncture / Unknown 03/30/2024 9:37 PM EST 03/30/2024 10:06 PM EST Leland Esteban MD LAB MICROBIOLOGY - GENERAL ORD ERABLES Final Result [facility] [address] [place] [address], [place] [phone] * Culture blood (03/30/2024 9:30 PM EST) Culture, Blood No growth at 5 days 04/04/2024 11:01 PM EST [facility] Blood Venous blood specimen / Unknown Venipuncture / Unknown 03/30/2024 9:30 PM EST 03/30/2024 10:06 PM EST Leland Esteban MD LAB MICROBIOLOGY - GENERAL ORD ERABLES Final Result [facility] [address] [place] [address], [place] [phone] * Lactate, with reflex (03/30/2024 9:29 PM EST) [facility] LACTIC ACID 1.8 0.4 - 2.0 mmol/L LAB CHEMISTRY METHOD 03/30/2024 10:33 PM EST [facility] Blood Venous blood specimen / Unknown Venipuncture / Unknown 03/30/2024 9:29 PM EST 03/30/2024 10:05 PM EST us Leland Esteban MD LAB BLOOD ORDERABLES Final Res ult [facility] [address] [place] [address], [place] [phone] * (ABNORMAL) Urinalysis with reflex microscopic (03/30/2024 4:22 PM EST) [facility] Specific [place] Urine >1.045(H) 1.003 - 1.030 LAB URINALYSIS - AUTOMATED METHOD 03/30/2024 4:52 PM [facility] pH, Urine 5.5 5.0 - 8.0 pH LAB URINALYSIS - AUTOMATED METHOD 03/30/2024 4:52 PM [facility] Leukocytes, Urine Negative Negative LAB URINALYSIS - AUTOMATED METHOD 03/30/2024 4:52 PM [facility] Nitrite, Urine Negative Negative LAB URINALYSIS - AUTOMATED METHOD 03/30/2024 4:52 PM [facility] Protein, Urine Negative <=Trace mg/dL LAB URINALYSIS - AUTOMATED METHOD 03/30/2024 4:52 PM [facility] Glucose, Urine Negative Negative mg/dL LAB URINALYSIS - AUTOMATED METHOD 03/30/2024 4:52 PM [facility] Ketones, Urine Negative Negative mg/dL LAB URINALYSIS - AUTOMATED METHOD 03/30/2024 4:52 PM [facility] Urobilinogen , Urine 1.0 0.2 - 1.0 mg/dL LAB URINALYSIS - AUTOMATED METHOD 03/30/2024 4:52 PM [facility] Bilirubin, Urine Negative Negative LAB URINALYSIS - AUTOMATED METHOD 03/30/2024 4:52 PM [facility] Blood, Urine Negative Negative LAB URINALYSIS - AUTOMATED METHOD 03/30/2024 4:52 PM [facility] Urine Urine specimen obtained by clean catch procedure / Unknown Non-blood Collection / Unknown 03/30/2024 4:22 PM EST 03/30/2024 4:40 PM EST Tobin MAGUIRE LAB URINE ORDERABLES Angelique l Result Performing Organization Address [facility]/ZIP Co de Phone Number [facility] [address] [place] [address], [place] [phone] * B-type natriuretic peptide (03/30/2024 3:21 PM EST) [facility] BNP 75 <=100 pcg/mL LAB CHEMISTRY METHOD 03/30/2024 4:09 PM [facility] Blood Venous blood specimen / Unknown Venipuncture / Unknown 03/30/2024 3:21 PM EST 03/30/2024 3:35 PM EST Tobin MAGUIRE LAB BLOOD ORDERABLES Angelique l Result [facility] [address] [place] [address], [place] [phone] * Troponin I high sensitivity (03/30/2024 3:21 PM EST) [facility] High Sensitivity Troponin I 9 <=79 ng/L LAB CHEMISTRY METHOD 03/30/2024 4:02 PM EST [facility] Blood Venous blood specimen / Unknown Venipuncture / Unknown 03/30/2024 3:21 PM EST 03/30/2024 3:35 PM EST Narrative [facility] [place] [facility] - 03/30/2024 4:02 PM EST High levels of biotin in samples may falsely decrease hsTroponin values. ??Use caution when interpreting hsTroponin results in patients taking biotin who exhibit renal impairment (eGFR <60) or in patients taking more than 20 mg/day of biotin. us Tobin MAGUIRE LAB BLOOD ORDERABLES Angelique pichardo Result [facility] [address] [place] [address], * CT Angio Chest wo and/or w Contrast (03/30/2024 2:34 PM EST) Anatomical Region Laterality Modality Body Computed Tomogra phy 03/30/2024 2:37 PM EST Impressions 03/30/2024 2:53 PM EST 1. ??This study was repeated secondary to suboptimal contrast bolus on the initial scan. 2. ??No pulmonary embolism. ??No acute findings. ??Scattered small areas of air trapping in both lungs noted on expiratory images. 3. ??3 mm right upper lobe pulmonary nodule. ??This does not require further follow-up per current [employer] society recommendations in the absence of risk factors for lung cancer. ??If there are lung cancer risk factors, recommendations are for an optional follow-up CT in one year. -------- FINAL REPORT -------- Dictated By: Michael Espinoza Dictated Date: 03/30/2024 14:37 ET Assigned Physician: Michael Espinoza Reviewed and Electronically Signed By: Michael Espinoza Signed Date: 03/30/2024 14:53 ET Workstation ID: [id number] Transcribed By: Self Edit Transcribed Date: 03/30/2024 14:48 ET Narrative 03/30/2024 2:53 PM EST PROCEDURE: CT pulmonary angiogram. HISTORY: Chest pain, nonspecific PE suspected, high prob. TECHNIQUE: CT of the chest with intravenous contrast administration with pulmonary angiogram protocol. ??Coronal and sagittal reformats and MIP reconstructions were created. Dose length product: 1517 ??mGy-cm. Contrast dose: Total of 150 mL [id number]. COMPARISON: None. FINDINGS: This study was repeated due to a poor contrast bolus on the initial scan. Lungs/pleura: The central airways are normal in caliber. ??Dependent linear and groundglass opacities in both lower lobes suggestive of atelectasis. ??Small areas of air trapping throughout both lungs evident on the 2nd scan, which was performed with low lung volumes. ??Mild dependent atelectasis at the bases. ??No pleural effusion or pneumothorax. ??There is a 3 mm nodule in the posterior right upper lobe, series 7 image 154. Mediastinum/edie: No mass or lymphadenopathy. ?? Vasculature: Normal caliber pulmonary arteries. ??No pulmonary embolism. ??Mild atherosclerotic calcification of the great vessels. Cardiac: Mild cardiomegaly. ??Moderate coronary artery calcification. Chest wall: No axillary or supraclavicular lymphadenopathy. Limited abdomen: Hepatic cysts. ??1.5 cm calcified stone in the gallbladder neck atherosclerotic calcifications. ??Mild degenerative changes of the shoulders and spine. Bones: Unremarkable. Procedure Note Michael Espinoza MD - 03/30/2024 PROCEDURE: CT pulmonary angiogram. HISTORY: Chest pain, nonspecific PE suspected, high prob. TECHNIQUE: CT of the chest with intravenous contrast administration withpulmonary angiogram protocol. Coronal and sagittal reformats and MIPreconstructions were created. Dose length product: 1517 mGy-cm. Contrast dose: Total of 150 mL [id number]. COMPARISON: None. FINDINGS: This study was repeated due to a poor contrast bolus on theinitial scan. Lungs/pleura: The central airways are normal in caliber. Dependent linearand groundglass opacities in both lower lobes suggestive of atelectasis.Small areas of air trapping throughout both lungs evident on the 2nd scan,which was performed with low lung volumes. Mild dependent atelectasis atthe bases. No pleural effusion or pneumothorax. There is a 3 mm nodulein the posterior right upper lobe, series 7 image 154. Mediastinum/edie: No mass or lymphadenopathy. Vasculature: Normal caliber pulmonary arteries. No pulmonary embolism.Mild atherosclerotic calcification of the great vessels. Cardiac: Mild cardiomegaly. Moderate coronary artery calcification. Chest wall: No axillary or supraclavicular lymphadenopathy. Limited abdomen: Hepatic cysts. 1.5 cm calcified stone in the gallbladderneck atherosclerotic calcifications. Mild degenerative changes of theshoulders and spine. Bones: Unremarkable. IMPRESSION: 1. This study was repeated secondary to suboptimal contrast bolus on theinitial scan. 2. No pulmonary embolism. No acute findings. Scattered small areas ofair trapping in both lungs noted on expiratory images. 3. 3 mm right upper lobe pulmonary nodule. This does not require furtherfollow- up per current [employer] society recommendations in the absence ofrisk factors for lung cancer. If there are lung cancer risk factors,recommendations are for an optional follow-up CT in one year. -------- FINAL REPORT -------- Dictated By: Michael Espinoza Dictated Date: 03/30/2024 14:37 ET Assigned Physician: Michael Espinoza Reviewed and Electronically Signed By: Michael Espinoza Signed Date: 03/30/2024 14:53 ET Workstation ID: [id number] Transcribed By: Self Edit Transcribed Date: 03/30/2024 14:48 ET Tobin MAGUIRE IMG CT PROCEDURES Final R esult * Respiratory virus panel molecular study (03/30/2024 11:59 AM EST) Pathologist [facility] Adenovirus Detection by PCR Not Detected Not Detected LAB MICROBIOLOGY METHOD 03/30/2024 1:28 PM [facility] Influenza A PCR Not Detected Not Detected LAB MICROBIOLOGY METHOD 03/30/2024 1:28 PM [facility] Influenza B PCR Not Detected Not Detected LAB MICROBIOLOGY METHOD 03/30/2024 1:28 PM [facility] Coronavirus 229E Not Detected Not Detected LAB MICROBIOLOGY METHOD 03/30/2024 1:28 PM [facility] Coronavirus HKU1 Not Detected Not Detected LAB MICROBIOLOGY METHOD 03/30/2024 1:28 PM [facility] Coronavirus OC43 Not Detected Not Detected LAB MICROBIOLOGY METHOD 03/30/2024 1:28 PM [facility] Coronavirus NL63 Not Detected Not Detected LAB MICROBIOLOGY METHOD 03/30/2024 1:28 PM [facility] Parainfluenza Virus 1 Not Detected Not Detected LAB MICROBIOLOGY METHOD 03/30/2024 1:28 PM [facility] Parainfluenza Virus 2 Not Detected Not Detected LAB MICROBIOLOGY METHOD 03/30/2024 1:28 PM [facility] Parainfluenza Virus 3 Not Detected Not Detected LAB MICROBIOLOGY METHOD 03/30/2024 1:28 PM [facility] Parainfluenza Virus 4 Not Detected Not Detected LAB MICROBIOLOGY METHOD 03/30/2024 1:28 PM [facility] RSV PCR Not Detected Not Detected LAB MICROBIOLOGY METHOD 03/30/2024 1:28 PM [facility] Human Metapneumovirus A and B Not Detected Not Detected LAB MICROBIOLOGY METHOD 03/30/2024 1:28 PM [facility] Rhinovirus/Entero virus Not Detected Not Detected LAB MICROBIOLOGY METHOD 03/30/2024 1:28 PM [facility] Bordetella pertussis Not Detected Not Detected LAB MICROBIOLOGY METHOD 03/30/2024 1:28 PM [facility] Bordetella parapertussis Not Detected Not Detected LAB MICROBIOLOGY METHOD 03/30/2024 1:28 PM [facility] Mycoplasma pneumo by PCR Not Detected Not Detected LAB MICROBIOLOGY METHOD 03/30/2024 1:28 PM [facility] Chlamydia pneumoniae Not Detected Not Detected LAB MICROBIOLOGY METHOD 03/30/2024 1:28 PM [facility] SARS COV-2 Not Detected Not Detected LAB MICROBIOLOGY METHOD 03/30/2024 1:28 PM EST [facility] Swab Both anterior nares / Unknown Non-blood Collection / Unknown 03/30/2024 11:59 AM EST 03/30/2024 12:10 PM EST Narrative [facility] - 03/30/2024 1:28 PM EST Testing was performed using the [employer] Respiratory Pathogen PCR Assay. All results must be correlated with the clinical findings. Results should not be used as the sole basis for diagnosis. False Negative results may occur from the presence of sequence variants in the region targeted by the assay or the presence of inhibitors. Results may be affected by concurrent antiviral/antimicrobial therapy or levels of organisms that are below the limit of detection. Tobin MAGUIRE LAB MICROBIOLOGY - GENERA L ORDERABLES Final Result Performing Organization Address [facility]/ZIP Co de Phone Number [facility] [address] [place] [address], [place] [phone] * ECG 12 lead (03/30/2024 9:24 AM EST) Ventricular Rate ECG 121 BPM GEMUSE Atrial Rate 121 BPM GEMUSE P-R Interval 162 ms GEMUSE QRS Duration 82 ms GEMUSE Q-T Interval 320 ms GEMUSE QTc 454 ms GEMUSE P Wave [place] 43 degrees GEMUSE R [place] 8 degrees GEMUSE T [place] 42 degrees GEMUSE ECG Interpretation Sinus tachycardia When compared with ECG of 18-MAR-2023 20:07, Nonspecific T wave abnormality no longer evident in Lateral leads Confirmed by DEEPA BARNES ([id number]) on 03/31/2024 5:16:49 AM GEMUSE 03/30/2024 9:24 AM EST 03/31/2024 5:16 AM EST Tobin MAGUIRE ECG ORDERABLES Final Res ult GEMUSE * Triiodothyronine free (03/30/2024 8:38 AM EST) T3, Free 301 230 - 420 pcg/dL LAB CHEMISTRY METHOD 03/30/2024 9:27 PM EST [facility] Blood Venous blood specimen / Unknown Venipuncture / Unknown 03/30/2024 8:38 AM EST 03/30/2024 8:46 AM EST Bozena MAGUIRE LAB BLOOD ORDERABLES F inal Result Performing Organization Address [facility]/ZIP Co de Phone Number [facility] [address] [place] [address], [place] [phone] * Free thyroxine with reflex to free triiodothyronine (03/30/2024 8:38 AM EST) Free T4 1.20 0.70 - 1.80 ng/dL LAB CHEMISTRY METHOD 03/30/2024 9:00 PM EST [facility] Blood Venous blood specimen / Unknown Venipuncture / Unknown 03/30/2024 8:38 AM EST 03/30/2024 8:46 AM EST us Bozena MAGUIRE LAB BLOOD ORDERABLES F inal Result Performing Organization Address [facility] de Phone Number [facility] [address] [place] [address], [place] [phone] * (ABNORMAL) Thyroid stimulating hormone with reflex to free t4 and free t3 (TSH Reflex) (03/30/2024 8:38 AM EST) TSH 4.06(H) 0.40 - 4.00 mcIU/mL LAB CHEMISTRY METHOD 03/30/2024 8:27 PM EST [facility] Blood Venous blood specimen / Unknown Venipuncture / Unknown 03/30/2024 8:38 AM EST 03/30/2024 8:46 AM EST Bozena MAGUIRE LAB BLOOD ORDERABLES F inal Result [facility] [address] [place] [address], * (ABNORMAL) CBC auto differential (03/30/2024 8:38 AM EST) WBC 6.5 4.8 - 10.8 K/mcL LAB HEMETOLOGY METHOD 03/30/2024 9:01 AM [facility] RBC 5.30 4.50 - 5.50 M/mcL LAB HEMETOLOGY METHOD 03/30/2024 9:01 AM [facility] Hemoglobin 15.1 13.5 - 17.5 g/dL LAB HEMETOLOGY METHOD 03/30/2024 9:01 AM [facility] Hematocrit 46.4 42.0 - 54.0 % LAB HEMETOLOGY METHOD 03/30/2024 9:01 AM [facility] MCV 86.9 79.0 - 98.0 FL LAB HEMETOLOGY METHOD 03/30/2024 9:01 AM [facility] MCH 28.3 27.0 - 32.0 pcg LAB HEMETOLOGY METHOD 03/30/2024 9:01 AM [facility] MCHC 32.5 32.0 - 37.0 g/dL LAB HEMETOLOGY METHOD 03/30/2024 9:01 AM [facility] RDW 15.1(H) 11.0 - 15.0 % LAB HEMETOLOGY METHOD 03/30/2024 9:01 AM [facility] Platelets 119(L) 130 - 400 K/mcL LAB HEMETOLOGY METHOD 03/30/2024 9:01 AM [facility] MPV 11.5(H) 7.0 - 11.0 FL LAB HEMETOLOGY METHOD 03/30/2024 9:01 AM [facility] NRBC 0.0 <1.0 % LAB HEMETOLOGY METHOD 03/30/2024 9:01 AM [facility] NRBC Absolute 0.00 <0.10 K/mcL LAB HEMETOLOGY METHOD 03/30/2024 9:01 AM [facility] Neutrophils Relative 90.1 % LAB HEMETOLOGY METHOD 03/30/2024 9:01 AM [facility] Lymphocytes Relative 5.3 % LAB HEMETOLOGY METHOD 03/30/2024 9:01 AM [facility] Monocytes Relative 4.0 % LAB HEMETOLOGY METHOD 03/30/2024 9:01 AM [facility] Eosinophils Relative 0.2 % LAB HEMETOLOGY METHOD 03/30/2024 9:01 AM [facility] Basophils Relative 0.2 % LAB HEMETOLOGY METHOD 03/30/2024 9:01 AM [facility] Immature Granulocytes Relative 0.2 % LAB HEMETOLOGY METHOD 03/30/2024 9:01 AM [facility] Neutrophils Absolute 5.84 1.50 - 7.00 K/mcL LAB HEMETOLOGY METHOD 03/30/2024 9:01 AM [facility] Lymphocytes Absolute 0.34(L) 1.00 - 5.00 K/mcL LAB HEMETOLOGY METHOD 03/30/2024 9:01 AM [facility] Monocytes Absolute 0.26 0.20 - 1.00 K/mcL LAB HEMETOLOGY METHOD 03/30/2024 9:01 AM [facility] Eosinophils Absolute 0.01 0.00 - 0.50 K/mcL LAB HEMETOLOGY METHOD 03/30/2024 9:01 AM [facility] Basophils Absolute 0.01 0.00 - 0.20 K/mcL LAB HEMETOLOGY METHOD 03/30/2024 9:01 AM [facility] Immature Granulocytes Absolute 0.01 0.00 - 0.03 K/mcL LAB HEMETOLOGY METHOD 03/30/2024 9:01 AM EST [facility] Blood Venous blood specimen / Unknown Venipuncture / Unknown 03/30/2024 8:38 AM EST 03/30/2024 8:47 AM EST Jason Griffin DO LAB BLOOD ORDERABLES Final Res ult Performing Organization Address [facility]/ZIP Co de Phone Number [facility] [address] [place] [address], [place] [phone] * Lipase (03/30/2024 8:38 AM EST) Pathologist [facility] Lipase 56 13 - 75 unit/L LAB CHEMISTRY METHOD 03/30/2024 9:20 AM EST [facility] Blood Venous blood specimen / Unknown Venipuncture / Unknown 03/30/2024 8:38 AM EST 03/30/2024 8:46 AM EST Jason rGiffin DO LAB BLOOD ORDERABLES Final Res ult Performing Organization Address [facility]/ZIP Co de Phone Number [facility] [address] [place] [address], [place] [phone] * (ABNORMAL) Comprehensive metabolic panel (03/30/2024 8:38 AM EST) Pathologist [facility] Sodium 140 133 - 145 mmol/L LAB CHEMISTRY METHOD 03/30/2024 9:20 AM EST [facility] Potassium 4.4 3.5 - 5.5 mmol/L LAB CHEMISTRY METHOD 03/30/2024 9:20 AM EST [facility] Comment:Hemolysis present Chloride 107 96 - 110 mmol/L LAB CHEMISTRY METHOD 03/30/2024 9:20 AM EST [facility] CO2 26 21 - 32 mmol/L LAB CHEMISTRY METHOD 03/30/2024 9:20 AM [facility] Anion Gap 7 3 - 11 LAB CHEMISTRY METHOD 03/30/2024 9:20 AM [facility] Glucose 162(H) 70 - 100 mg/dL LAB CHEMISTRY METHOD 03/30/2024 9:20 AM [facility] BUN 22 5 - 25 mg/dL LAB CHEMISTRY METHOD 03/30/2024 9:20 AM [facility] Creatinine 1.06 0.70 - 1.30 mg/dL LAB CHEMISTRY METHOD 03/30/2024 9:20 AM [facility] eGFR 71 >=60 mL/min/1. 73m2 LAB CHEMISTRY METHOD 03/30/2024 9:20 AM [facility] Comment:Calculation based on the??Chronic Kidney Disease Epidemiology Collaboration (CKD-EPI) equation refit??without adjustment for race. BUN/Creatinine Ratio 20.8 LAB CHEMISTRY METHOD 03/30/2024 9:20 AM [facility] Calcium 9.1 8.5 - 10.5 mg/dL LAB CHEMISTRY METHOD 03/30/2024 9:20 AM [facility] AST (SGOT) 35 10 - 42 unit/L LAB CHEMISTRY METHOD 03/30/2024 9:20 AM [facility] Comment:Hemolysis present ALT (SGPT) 25 10 - 60 unit/L LAB CHEMISTRY METHOD 03/30/2024 9:20 AM [facility] Alkaline Phosphatase 127(H) 42 - 121 unit/L LAB CHEMISTRY METHOD 03/30/2024 9:20 AM [facility] Total Protein 7.4 6.0 - 8.0 g/dL LAB CHEMISTRY METHOD 03/30/2024 9:20 AM [facility] Albumin 3.8 3.2 - 5.0 g/dL LAB CHEMISTRY METHOD 03/30/2024 9:20 AM [facility] Total Bilirubin 1.4 0.0 - 1.4 mg/dL LAB CHEMISTRY METHOD 03/30/2024 9:20 AM EST [facility] Blood Venous blood specimen / Unknown Venipuncture / Unknown 03/30/2024 8:38 AM EST 03/30/2024 8:46 AM EST Jason Griffin DO LAB BLOOD ORDERABLES Final Res ult [facility] [address] [place] [address], * ECG-Annotated (03/30/2024) us Provider Onbase MD ECG ORDERABLES Final Result documented in this encounter Visit Diagnoses Diagnosis Tachycardia- Primary Unspecified tachycardia Acute respiratory distress Other pulmonary insufficiency, not elsewhere classified Tachycardia Unspecified tachycardia Dyspnea, unspecified type Lung nodule seen on imaging study Norovirus Intestinal infection, enteritis due to [place] virus documented in this encounter Admitting Diagnoses Diagnosis Tachycardia Unspecified tachycardia documented in this encounter Administered Medications Inactive Administered Medications - up to 3 most recent administrations Medication Order MAR Action Action Date Dose Rate Site acetaminophen (TYLENOL) tablet 650 mg 650 mg, oral, Every 6 hours PRN, mild pain, moderate pain, headaches, fever - temperature GREATER than 38 C (100.4 F), Starting on 03/30/24 at 2050 allopurinoL (ZYLOPRIM) tablet 100 mg 100 mg, oral, Every other day, First dose on 03/30/24 at 2053 Given 03/30/2024 10:32 PM EST 100 mg clonazePAM (KlonoPIN) tablet 0.5 mg 0.5 mg, oral, 2 times daily PRN, anxiety, Starting on 03/30/24 at 2051, HAZARDOUS Drug Precautions - Low Risk (Category A/NIOSH Group 3) Reproductive Risk Only: - Single pair of ASTM standard [id number] certified chemotherapy gloves - Eye protection (goggles or face shield) required only with a potential for facial contact (i.e. concern for spitting or vomiting of the dose during or after administration) - Staff at reproductive risk (actively trying to conceive, or may be become , and ): chemo certified gown and an N95 respirator required when crushing meds (crushing of tabs allowed only in closed pouches) or opening of capsules only for allowable dosage forms Given 03/30/2024 10:33 PM EST 0.5 mg enoxaparin (LOVENOX) injection 40 mg 40 mg, subcutaneous, Daily, First dose on Sun03/30/24 at 2055, Indication: VTE/PE Prophylaxis Given 03/30/2024 10:33 PM EST 40 mg Left Upper Abdomen entecavir (BARACLUDE) tablet 0.5 mg 0.5 mg, oral, Daily, First dose on Sun03/31/24 at 0900, Administer on an empty stomach (2 hours before or after a meal). HAZARDOUS Drug Precautions - Low Risk (Category A/NIOSH Group 3) Reproductive Risk Only: - Single pair of ASTM standard [id number] certified chemotherapy gloves - Eye protection (goggles or face shield) required only with a potential for facial contact (i.e. concern for spitting or vomiting of the dose during or after administration) - Staff at reproductive risk (actively trying to conceive, or may be become , and ): chemo certified gown and an N95 respirator required when crushing meds (crushing of tabs allowed only in closed pouches) or opening of capsules only for allowable dosage forms, Indication: Herpes Virus Given 03/31/2024 9:13 AM EST 0.5 mg iopamidoL (ISOVUE-370) 370 mg iodine /mL (76 %) injection 100 mL 100 mL, intravenous, Once in imaging, Starting on Sun03/30/24 at 1420, For 1 dose Given 03/30/2024 2:22 PM EST 150 mL iopamidoL (ISOVUE-370) 370 mg iodine /mL (76 %) injection 90 mL 90 mL, intravenous, Once in imaging, Starting on Sun03/30/24 at 2203, For 1 dose Given 03/30/2024 10:04 PM EST 90 mL magnesium sulfate 2 gram/50 mL (4 %) IVPB 2 g 2 g, intravenous, at 25 mL/hr, Administer over 2 Hours, Once, On Sun03/31/24 at 0845, For 1 dose New Bag 03/31/2024 9:12 AM EST 2 g 25 mL/hr ondansetron (PF) (ZOFRAN) injection 4 mg 4 mg, intravenous, Once, On 03/30/24 at 0909, For 1 dose Given 03/30/2024 9:15 AM EST 4 mg pantoprazole (PROTONIX) EC tablet 40 mg 40 mg, oral, Every morning before breakfast, First dose on Sun03/31/24 at 0700, Do not crush, chew, or split. Given 03/31/2024 9:13 AM EST 40 mg sodium chloride 0.9 % bolus 1,000 mL 1,000 mL, intravenous, at 2,000 mL/hr, Administer over 30 Minutes, Once, On 03/30/24 at 0909, For 1 dose New Bag 03/30/2024 9:14 AM EST 1,000 mL 2000 mL/hr sodium chloride 0.9 % bolus 1,000 mL 1,000 mL, intravenous, at 2,000 mL/hr, Administer over 30 Minutes, Once, On Sun03/30/24 at 1113, For 1 dose New Bag 03/30/2024 11:16 AM EST 1,000 mL 2000 mL/hr sodium chloride 0.9 % bolus 500 mL 500 mL, intravenous, at 1,000 mL/hr, Administer over 30 Minutes, Once, On Sun03/30/24 at 1357, For 1 dose New Bag 03/30/2024 2:02 PM EST 500 mL 1000 mL/hr sodium chloride 0.9 % flush 10 mL 10 mL, intravenous, Once, On Sun03/30/24 at 1421, For 1 dose Given 03/30/2024 2:22 PM EST 10 mL sodium chloride 0.9 % flush 10 mL 10 mL, intravenous, Once, On Sun03/30/24 at 2230, For 1 dose Given 03/30/2024 10:04 PM EST 10 mL sodium chloride 0.9 % infusion 100 mL/hr, intravenous, Continuous, Starting on Sun03/30/24 at 2055 New Bag 03/30/2024 10:33 PM EST 100 mL/hr 100 mL/hr documented in this encounter Historical Medications * This list may reflect changes made after this encounter. omeprazole (PriLOSEC) [address] capsule Take 1 capsule (20 mg total) by mouth 1 (one) time each day. entecavir (BARACLUDE) 0.5 mg tablet Take 1 tablet (0.5 mg total) by mouth 1 (one) time each day. 04/14/2021 clonazePAM (KlonoPIN) 0.5 mg tablet Take 1 tablet (0.5 mg total) by mouth 2 (two) times a day if needed for anxiety. allopurinoL (ZYLOPRIM) 100 mg tablet Take 1 tablet (100 mg total) by mouth every other day. 04/14/2021 added in this encounter Active and Recently Administered Medications Times are shown in EST. Scheduled Medication Order 03/29/2024 03/30/2024 03/31/2024 allopurinoL (ZYLOPRIM) tablet 100 mg 100 mg, oral, Every other day, First dose on 03/30/24 at 2053 2231 (Given - Provider: Jacinta Faulkner RN) enoxaparin (LOVENOX) injection 40 mg 40 mg, subcutaneous, Daily, First dose on Sun03/30/24 at 2054, Indication: VTE/PE Prophylaxis 2232 (Given - Provider: Jacinta Faulkner RN) 0914 (Not Given - Provider: Deann Washington RN - Reason: Other - Comment: last dose given overnight) entecavir (BARACLUDE) tablet 0.5 mg 0.5 mg, oral, Daily, First dose on Sun03/31/24 at 0900, Administer on an empty stomach (2 hours before or after a meal). HAZARDOUS Drug Precautions - Low Risk (Category A/NIOSH Group 3) Reproductive Risk Only: - Single pair of ASTM standard D6978 certified chemotherapy gloves - Eye protection (goggles or face shield) required only with a potential for facial contact (i.e. concern for spitting or vomiting of the dose during or after administration) - Staff at reproductive risk (actively trying to conceive, or may be become , and ): chemo certified gown and an N95 respirator required when crushing meds (crushing of tabs allowed only in closed pouches) or opening of capsules only for allowable dosage forms, Indication: Herpes Virus 0913 (Given - Provid er: Deann Washington RN) iopamidoL (ISOVUE-370) 370 mg iodine /mL (76 %) injection 100 mL (COMPLETED) 100 mL, intravenous, Once in imaging, Starting on 03/30/24 at 1420, For 1 dose 1422 (Given - Provider: Candelaria Hudson) iopamidoL (ISOVUE-370) 370 mg iodine /mL (76 %) injection 90 mL (COMPLETED) 90 mL, intravenous, Once in imaging, Starting on 03/30/24 at 2203, For 1 dose 2204 (Given - Provider: Loulou Morley) magnesium sulfate 2 gram/50 mL (4 %) IVPB 2 g (COMPLETED) 2 g, intravenous, at 25 mL/hr, Administer over 2 Hours, Once, On Sun03/31/24 at 0845, For 1 dose 0912 (New Bag - Provider: Deann Washington RN)1129 (Stopped - Provider: Deann Washington RN) ondansetron (PF) (ZOFRAN) injection 4 mg (COMPLETED) 4 mg, intravenous, Once, On Sun03/30/24 at 0909, For 1 dose 0915 (Given - Provider: Lupe Townsend RN) pantoprazole (PROTONIX) EC tablet 40 mg 40 mg, oral, Every morning before breakfast, First dose on Sun03/31/24 at 0700, Do not crush, chew, or split. 0913 (Given - Provid er: Deann Washington RN) sodium chloride 0.9 % bolus 1,000 mL (COMPLETED) 1,000 mL, intravenous, at 2,000 mL/hr, Administer over 30 Minutes, Once, On Sun03/30/24 at 0909, For 1 dose 0914 (New Bag - Provider: Lupe Townsend RN)1030 (Stopped - Provider: Lupe Townsend RN) sodium chloride 0.9 % bolus 1,000 mL (COMPLETED) 1,000 mL, intravenous, at 2,000 mL/hr, Administer over 30 Minutes, Once, On Sun03/30/24 at 1113, For 1 dose 1116 (New Bag - Provider: Lupe Townsend RN)1228 (Stopped - Provider: Lupe Townsend RN) sodium chloride 0.9 % bolus 500 mL (COMPLETED) 500 mL, intravenous, at 1,000 mL/hr, Administer over 30 Minutes, Once, On Sun03/30/24 at 1357, For 1 dose 1402 (New Bag - Provider: Rani Simmons RN)1513 (Stopped - Provider: Lupe Townsend RN) sodium chloride 0.9 % flush 10 mL (COMPLETED) 10 mL, intravenous, Once, On 03/30/24 at 1421, For 1 dose 1422 (Given - Provider: Candelaria Hudson) sodium chloride 0.9 % flush 10 mL (COMPLETED) 10 mL, intravenous, Once, On 03/30/24 at 2230, For 1 dose 4 (Given - Provider: Loulou Morley) Continuous Medication Order 03/29/2024 03/30/2024 03/31/2024 sodium chloride 0.9 % infusion 100 mL/hr, intravenous, Continuous, Starting on 03/30/24 at 2054 2232 (New Bag - Provider: Jacinta Faulkner RN) 154 (Due: Stopped) PRN Medication Order 03/29/2024 03/30/2024 03/31/2024 acetaminophen (TYLENOL) tablet 650 mg 650 mg, oral, Every 6 hours PRN, mild pain, moderate pain, headaches, fever - temperature GREATER than 38 C (100.4 F), Starting on 03/30/24 at 2050 clonazePAM (KlonoPIN) tablet 0.5 mg 0.5 mg, oral, 2 times daily PRN, anxiety, Starting on 03/30/24 at 2051, HAZARDOUS Drug Precautions - Low Risk (Category A/NIOSH Group 3) Reproductive Risk Only: - Single pair of ASTM standard D6978 certified chemotherapy gloves - Eye protection (goggles or face shield) required only with a potential for facial contact (i.e. concern for spitting or vomiting of the dose during or after administration) - Staff at reproductive risk (actively trying to conceive, or may be become , and ): chemo certified gown and an N95 respirator required when crushing meds (crushing of tabs allowed only in closed pouches) or opening of capsules only for allowable dosage forms 2232 (Given - Provider: Jonathon Faulkner RN) documented in this encounter Orders Medications Ordered That Chris ht Not Have Been Administered Count Last Ordered Date First Ordered Date acetaminophen (TYLENOL) tablet 650 mg 1 03/2024 Admission Count Last Ordered Date First Orde red Date INITIATE OBS ADM REQ 1 03/30/2024 Discharge Count Last Ordered Date First Orde red Date DISCHARGE PATIENT 1 03/31/2024 documented in this encounter Additional Health Concerns Infection Onset Date Last Indicated Resolved Time Respiratory Rule-Out 03/30/2024 03/30/2024 025 1:28 PM EST COVID-19 Rule-Out 03/30/2024 03/30/2024 03/30/2024 1:28 PM EST Gastrointestinal Rule-Out 03/30/2024 03/31/2024 2:10 AM EST Norovirus 03/31/2024 03/31/2024 documented as of this encounter 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
--- OUTSIDE RECORDS SUMMARY | 2024-04-21 18:07 | XMS_ITS | Clinical Summary ---
Author Organization [facility] Address [address] [place] [address] Phone Care Team Providers Care Fingerprint Expert Name Role Phone Raji Amanda MD Primary Care Provider [phone] Allergies No known active allergies Medications allopurinoL (ZYLOPRIM) 100 mg tablet Take 1 tablet (100 mg total) by mouth every other day. 04/14/2021 Active clonazePAM (KlonoPIN) 0.5 mg tablet Take 1 tablet (0.5 mg total) by mouth 2 (two) times a day if needed for anxiety. Active entecavir (BARACLUDE) 0.5 mg tablet Take 1 tablet (0.5 mg total) by mouth 1 (one) time each day. 04/14/2021 Active omeprazole (PriLOSEC) [address] capsule Take 1 capsule (20 mg total) by mouth 1 (one) time each day. Active Active Problems No known active problems Resolved Problems Problem Noted Date Diagnosed Date Resolved Date Norovirus 03/31/2024 03/31/2024 Tachycardia 03/30/2024 03/31/2024 Encounters Date Type Department Care Team Description 03/30/2024 8:24 AM EST - 03/31/2024 1:[address] [facility] [address] [place] [address] Leodan Snider MD Ishtiaq, Rizwan, MD Kela, Kashyap Devendrabhai, MD Acute respiratory distress (Primary Dx); Tachycardia; Dyspnea, unspecified type; Lung nodule seen on imaging study Discharge Disposition: Home or Self Care from Last 3 Months Social History Tobacco Use Types Packs/Day Years [...] care for your loved ones. For example, child adolescent psychiatrist or elderly care for an older adult? [...] Orientation Straight 03/31/2024 12 :12 AM EST Obstetrics History Last Filed Vital Signs Vital Sign Reading [...] Mass Index 35.53 03/30/2024 8:45 AM EST Plan of Treatment Health Maintenance Due Date Last Done Comments Hepatitis A Vaccines (1 of 2 - Risk 2-dose series) 12/26/1964 Hepatitis B Vaccines (1 of 3 - Risk 3-dose series) 2004 Zoster Vaccines (2 of 3) 02/27/2011 01/02/2011 RSV Immunization Patients 60+ Years Old (1 - 1-dose 75+ series) 12/26/2019 Cholesterol Screening (Lipid Panel) 09/18/2023 Depression Screening 09/18/2023 Hepatitis C Screening 09/18/2023 Medicare Annual Wellness Visit 09/18/2023 COVID-19 Vaccine ( season) 2023 06/20/2021, 12/02/2020, 03/11/2020, Additional history exists Falls Risk Assessment 03/31/2025 03/31/2024 Hypertension/CHF/CAD Annual BMP Blood Test 03/31/2025 03/31/2024, 03/31/2024, 03/30/2024 Social Influencers of Health Screening 03/31/2025 03/31/2024 DTaP,Tdap,and Td Vaccines (4 - Td or Tdap) 03/18/2033 03/18/2023, 11/03/2021, 06/29/2010 Pneumococcal Vaccine: 50+ Years Completed 03/10/2015, 12/22/2010 Influenza Vaccine Completed 01/09/2024, , 11/03/2021, Additional history exists HIB Vaccines Aged Out No longer eligi ble based on patient's age to complete this topic HPV Vaccines Aged Out No longer eligi ble based on patient's age to complete this topic IPV Vaccines Aged Out No longer eligi ble based on patient's age to complete this topic MMR Vaccines Aged Out No longer eligi ble based on patient's age to complete this topic Meningococcal ACWY Vaccine Aged Out N o longer eligible based on patient's age to complete this topic Meningococcal B Vacine Aged Out No lo nger eligible based on patient's age to complete this topic RSV Immunization Patients Under 20 months Aged Out No longer eligible based on patient's age to complete this topic Varicella Vaccines Aged Out No longer eligible based on patient's age to complete this topic Procedures Procedure Name Priority Date/Time Associated Diagnosis Comments COMPREHENSIVE METABOLIC PANEL STAT Add-on 03/31/2024 6:05 AM EST CBC WITH AUTO DIFFERENTIAL Routine 03/31/2024 6:05 AM EST MAGNESIUM Routine 03/31/2024 6:05 AM EST BASIC METABOLIC PANEL Routine 03/31/2024 6:05 AM EST CBC AND DIFFERENTIAL Routine 03/31/2024 6:05 AM EST GASTROINTESTINAL PATHOGENS [...] REFLEX MICROSCOPIC STAT 03/30/2024 4:22 PM EST B-TYPE NATRIURETIC PEPTIDE STAT 03/30/2024 3:21 PM EST TROPONIN I HIGH SENSITIVITY STAT 03/30/2024 3:[address] ANGIO CHEST WO AND/OR W CONTRAST STAT 03/30/2024 2:34 PM EST Acute respiratory distress RESPIRATORY VIRUS PANEL MOLECULAR STUDY STAT 03/30/2024 11:59 AM EST ECG 12-LEAD Routine 03/30/2024 9:24 AM EST TRIIODOTHYRONINE FREE STAT 03/30/2024 8:38 AM EST FREE THYROXINE WITH REFLEX TO FREE TRIIODOTHYRONINE STAT 03/30/2024 8:38 AM EST THYROID STIMULATING HORMONE WITH REFLEX TO FREE T4 AND FREE T3 STAT Add-on 03/30/2024 8:38 AM EST CBC WITH AUTO DIFFERENTIAL STAT 03/30/2024 8:38 AM EST LIPASE STAT 03/30/2024 8:38 AM EST COMPREHENSIVE METABOLIC PANEL STAT 03/30/2024 8:38 AM EST CBC AND DIFFERENTIAL STAT 03/30/2024 8:38 AM EST ECG ANNOTATED 03/30/2024 from Last 3 Months Results * (ABNORMAL) CBC auto differential (03/31/2024 6:05 AM EST) Only the most recent of2 resultswithin the time period is included. [facility] Signature WBC 4.0(L) 4.8 - 10.8 K/mcL LAB HEMETOLOGY METHOD 03/31/2024 8:24 AM [facility] RBC 4.30(L) 4.50 - 5.50 M/mcL LAB HEMETOLOGY METHOD 03/31/2024 8:24 AM [facility] Hemoglobin 11.8(L) 13.5 - 17.5 g/dL LAB HEMETOLOGY METHOD 03/31/2024 8:24 AM [facility] Hematocrit 37.1(L) 42.0 - 54.0 % LAB HEMETOLOGY METHOD 03/31/2024 8:24 AM [facility] MCV 87.1 79.0 - 98.0 FL LAB HEMETOLOGY METHOD 03/31/2024 8:24 AM [facility] MCH 27.7 27.0 - 32.0 pcg LAB HEMETOLOGY METHOD 03/31/2024 8:24 AM [facility] MCHC 31.8(L) 32.0 - 37.0 g/dL LAB HEMETOLOGY METHOD 03/31/2024 8:24 AM [facility] RDW 15.6(H) 11.0 - 15.0 % LAB HEMETOLOGY METHOD 03/31/2024 8:24 AM [facility] Platelets 88(L) 130 - 400 K/mcL LAB HEMETOLOGY METHOD 03/31/2024 8:24 AM [facility] Comment:reviewed by slide MPV 12.1(H) 7.0 - 11.0 FL LAB HEMETOLOGY METHOD 03/31/2024 8:24 AM [facility] NRBC 0.0 <1.0 % LAB HEMETOLOGY METHOD 03/31/2024 8:24 AM [facility] NRBC Absolute 0.00 <0.10 K/mcL LAB HEMETOLOGY METHOD 03/31/2024 8:24 AM [facility] Neutrophils Relative 79.3 % LAB HEMETOLOGY METHOD 03/31/2024 8:24 AM [facility] Lymphocytes Relative 9.9 % LAB HEMETOLOGY METHOD 03/31/2024 8:24 AM [facility] Monocytes Relative 10.4 % LAB HEMETOLOGY METHOD 03/31/2024 8:24 AM [facility] Eosinophils Relative 0.0 % LAB HEMETOLOGY METHOD 03/31/2024 8:24 AM [facility] Basophils Relative 0.2 % LAB HEMETOLOGY METHOD 03/31/2024 8:24 AM [facility] Immature Granulocytes Relative 0.2 % LAB HEMETOLOGY METHOD 03/31/2024 8:24 AM [facility] Neutrophils Absolute 3.20 1.50 - 7.00 K/mcL LAB HEMETOLOGY METHOD 03/31/2024 8:24 AM [facility] Lymphocytes Absolute 0.40(L) 1.00 - 5.00 K/mcL LAB HEMETOLOGY METHOD 03/31/2024 8:24 AM [facility] Monocytes Absolute 0.42 0.20 - 1.00 K/mcL LAB HEMETOLOGY METHOD 03/31/2024 8:24 AM [facility] Eosinophils Absolute 0.00 0.00 - 0.50 K/mcL LAB HEMETOLOGY METHOD 03/31/2024 8:24 AM [facility] Basophils Absolute 0.01 0.00 - 0.20 K/mcL LAB HEMETOLOGY METHOD 03/31/2024 8:24 AM [facility] Immature Granulocytes Absolute 0.01 0.00 - 0.03 K/mcL LAB HEMETOLOGY METHOD 03/31/2024 8:24 AM [facility] Blood Venous blood specimen / Unknown Venipuncture / Unknown 03/31/2024 6:05 AM EST 03/31/2024 7:14 AM EST Leland Esteban MD LAB BLOOD ORDERABLES Final Res ult Performing Organization Address [facility]/ZIP Co de Phone Number [facility] [address] [place] [address], [place] [phone] * (ABNORMAL) Magnesium (03/31/2024 6:05 AM EST) Magnesium 1.7(L) 1.9 - 2.6 mg/dL LAB CHEMISTRY METHOD 03/31/2024 7:52 AM [facility] Blood Venous blood specimen / Unknown Venipuncture / Unknown 03/31/2024 6:05 AM EST 03/31/2024 7:14 AM EST Leland Esteban MD LAB BLOOD ORDERABLES Final Res ult Performing Organization Address [facility]/ZIP Co de Phone Number [facility] [address] [place] [address], [place] [phone] * (ABNORMAL) Comprehensive metabolic panel (03/31/2024 6:05 AM EST) Only the most recent of2 resultswithin the time period is included. Sodium 137 133 - 145 mmol/L LAB CHEMISTRY METHOD 03/31/2024 8:23 AM [facility] Potassium 3.8 3.5 - 5.5 mmol/L LAB CHEMISTRY METHOD 03/31/2024 8:23 AM [facility] Chloride 108 96 - 110 mmol/L LAB CHEMISTRY METHOD 03/31/2024 8:23 AM [facility] CO2 27 21 - 32 mmol/L LAB CHEMISTRY METHOD 03/31/2024 8:23 AM [facility] Anion Gap 2(L) 3 - 11 LAB CHEMISTRY METHOD 03/31/2024 8:23 AM [facility] Glucose 90 70 - 100 mg/dL LAB CHEMISTRY METHOD 03/31/2024 8:23 AM [facility] BUN 20 5 - 25 mg/dL LAB CHEMISTRY METHOD 03/31/2024 8:23 AM [facility] Creatinine 0.99 0.70 - 1.30 mg/dL LAB CHEMISTRY METHOD 03/31/2024 8:23 AM [facility] eGFR 77 >=60 mL/min/1. 73m2 LAB CHEMISTRY METHOD 03/31/2024 8:23 AM [facility] Comment:Calculation based on the??Chronic Kidney Disease Epidemiology Collaboration (CKD-EPI) equation refit??without adjustment for race. BUN/Creatinine Ratio 20.2 LAB CHEMISTRY METHOD 03/31/2024 8:23 AM [facility] Calcium 7.9(L) 8.5 - 10.5 mg/dL LAB CHEMISTRY METHOD 03/31/2024 8:23 AM [facility] AST (SGOT) 29 10 - 42 unit/L LAB CHEMISTRY METHOD 03/31/2024 8:23 AM [facility] ALT (SGPT) 24 10 - 60 unit/L LAB CHEMISTRY METHOD 03/31/2024 8:23 AM [facility] Alkaline Phosphatase 72 42 - 121 unit/L LAB CHEMISTRY METHOD 03/31/2024 8:23 AM [facility] Total Protein 5.7(L) 6.0 - 8.0 g/dL LAB CHEMISTRY METHOD 03/31/2024 8:23 AM [facility] Albumin 2.9(L) 3.2 - 5.0 g/dL LAB CHEMISTRY METHOD 03/31/2024 8:23 AM [facility] Total Bilirubin 1.3 0.0 - 1.4 mg/dL LAB CHEMISTRY METHOD 03/31/2024 8:23 AM [facility] Blood Venous blood specimen / Unknown Venipuncture / Unknown 03/31/2024 6:05 AM EST 03/31/2024 7:14 AM EST Mansi MAGUIRE LAB BLOOD ORDERABLES Final Result [facility] [address] [place] [address], * (ABNORMAL) Basic metabolic panel (03/31/2024 6:05 AM EST) Sodium 139 133 - 145 mmol/L LAB CHEMISTRY METHOD 03/31/2024 7:52 AM [facility] Potassium 3.8 3.5 - 5.5 mmol/L LAB CHEMISTRY METHOD 03/31/2024 7:52 AM [facility] Chloride 108 96 - 110 mmol/L LAB CHEMISTRY METHOD 03/31/2024 7:52 AM [facility] CO2 27 21 - 32 mmol/L LAB CHEMISTRY METHOD 03/31/2024 7:52 AM [facility] Anion Gap 4 3 - 11 LAB CHEMISTRY METHOD 03/31/2024 7:52 AM [facility] Glucose 93 70 - 100 mg/dL LAB CHEMISTRY METHOD 03/31/2024 7:52 AM [facility] BUN 19 5 - 25 mg/dL LAB CHEMISTRY METHOD 03/31/2024 7:52 AM [facility] Creatinine 0.99 0.70 - 1.30 mg/dL LAB CHEMISTRY METHOD 03/31/2024 7:52 AM [facility] eGFR 77 >=60 mL/min/1. 73m2 LAB CHEMISTRY METHOD 03/31/2024 7:52 AM [facility] Comment:Calculation based on the??Chronic Kidney Disease Epidemiology Collaboration (CKD-EPI) equation refit??without adjustment for race. BUN/Creatinine Ratio 19.2 LAB CHEMISTRY METHOD 03/31/2024 7:52 AM EST [facility] Calcium 7.9(L) 8.5 - 10.5 mg/dL LAB CHEMISTRY METHOD 03/31/2024 7:52 AM [facility] Blood Venous blood specimen / Unknown Venipuncture / Unknown 03/31/2024 6:05 AM EST 03/31/2024 7:14 AM EST us Leland Esteban MD LAB BLOOD ORDERABLES Final Res ult [facility] [address] [place] [address], [place] [phone] * (ABNORMAL) Gastrointestinal pathogens molecular study (03/31/2024 12:39 AM EST) Campylobacter Detection by PCR Not Detected Not Detected LAB MICROBIOLOGY METHOD 5 2:10 AM [facility] Plesiomonas shigelloides Detection by PCR Not Detected Not Detected LAB MICROBIOLOGY METHOD 5 2:10 AM [facility] Salmonella Detection by PCR Not Detected Not Detected LAB MICROBIOLOGY METHOD 5 2:10 AM [facility] Vibrio Detection by PCR Not Detected Not Detected LAB MICROBIOLOGY METHOD 5 2:10 AM [facility] Vibrio cholerae Detection by PCR Not Detected Not Detected LAB MICROBIOLOGY METHOD 5 2:10 AM [facility] Yersinia enterocolitica Detection by PCR Not Detected Not Detected LAB MICROBIOLOGY METHOD 5 2:10 AM [facility] Enteroaggregative E coli EAEC Detection by PCR Not Detected Not Detected LAB MICROBIOLOGY METHOD 5 2:10 AM [facility] Enteropathogenic E coli EPEC Detection Not Detected Not Detected LAB MICROBIOLOGY METHOD 5 2:10 AM [facility] Enterotoxigenic E coli ETEC LTST Detection Not Detected Not Detected LAB MICROBIOLOGY METHOD 5 2:10 AM [facility] Shiga-like toxin producing E coli STEC STX1 STX2 Det Not Detected Not Detected LAB MICROBIOLOGY METHOD 5 2:10 AM [facility] Shigella Enteroinvasive E coli EIEC Detection Not Detected Not Detected LAB MICROBIOLOGY METHOD 5 2:10 AM [facility] Cryptosporidium Detection by PCR Not Detected Not Detected LAB MICROBIOLOGY METHOD 5 2:10 AM [facility] Cyclospora cayetanensis Detection by PCR Not Detected Not Detected LAB MICROBIOLOGY METHOD 5 2:10 AM [facility] Entamoeba histolytica Detection by PCR Not Detected Not Detected LAB MICROBIOLOGY METHOD 5 2:10 AM [facility] Giardia lamblia Detection by PCR Not Detected Not Detected LAB MICROBIOLOGY METHOD 5 2:10 AM [facility] Adenovirus F 40 41 Detection by PCR Not Detected Not Detected LAB MICROBIOLOGY METHOD 5 2:10 AM [facility] Astrovirus Detection by PCR Not Detected Not Detected LAB MICROBIOLOGY METHOD 5 2:10 AM [facility] Norovirus GI GII Detection by PCR Detected(A ) Not Detected LAB MICROBIOLOGY METHOD 5 2:10 AM [facility] Sapovirus Detection by PCR Not Detected Not Detected LAB MICROBIOLOGY METHOD 5 2:10 AM [facility] Rotavirus A Detection by PCR Not Detected Not Detected LAB MICROBIOLOGY METHOD 5 2:10 AM [facility] Stool Rectum structure / Unknown Non-blood Collection / Unknown 03/31/2024 12:39 AM EST 03/31/2024 12:48 AM [facility] - 03/31/2024 2:10 AM EST PCR [...] MICROBIOLOGY - GENE RAL ORDERABLES Final Result [facility] [address] [place] [address], [place] [phone] * CT Abdomen Pelvis w Contrast (03/30/2024 [...] * Culture blood (03/30/2024 9:37 PM EST) Only the most recent of2 resultswithin the time period is included. Culture, Blood No growth at 5 days 04/04/2024 11:01 PM EST [facility] Blood Venous blood specimen / Unknown Venipuncture / Unknown 03/30/2024 9:37 PM EST 03/30/2024 10:06 PM EST Leland Esteban MD LAB MICROBIOLOGY - GENERAL ORD ERABLES Final Result [facility] [address] [place] [address], [place] [phone] * Lactate, with reflex (03/30/2024 9:29 PM EST) LACTIC ACID 1.8 0.4 - 2.0 mmol/L LAB CHEMISTRY METHOD 03/30/2024 10:33 PM EST [facility] Blood Venous blood specimen / Unknown Venipuncture / Unknown 03/30/2024 9:29 PM EST 03/30/2024 10:05 PM EST us Leland Esteban MD LAB BLOOD ORDERABLES Final Res ult [facility] [address] [place] [address], [place] [phone] * (ABNORMAL) Urinalysis with reflex microscopic (03/30/2024 4:22 PM EST) Pathologist [facility] Specific [place] Urine >1.045(H) 1.003 - 1.030 LAB URINALYSIS - AUTOMATED METHOD 03/30/2024 4:52 PM [facility] pH, Urine 5.5 5.0 - 8.0 pH LAB URINALYSIS - AUTOMATED METHOD 03/30/2024 4:52 PM [facility] Leukocytes, Urine Negative Negative LAB URINALYSIS - AUTOMATED METHOD 03/30/2024 4:52 PM [facility] Nitrite, Urine Negative Negative LAB URINALYSIS - AUTOMATED METHOD 03/30/2024 4:52 PM [facility] Protein, Urine Negative <=Trace mg/dL LAB URINALYSIS - AUTOMATED METHOD 03/30/2024 4:52 PM [facility] Glucose, Urine Negative Negative mg/dL LAB URINALYSIS - AUTOMATED METHOD 03/30/2024 4:52 PM [facility] Ketones, Urine Negative Negative mg/dL LAB URINALYSIS - AUTOMATED METHOD 03/30/2024 4:52 PM [facility] Urobilinogen , Urine 1.0 0.2 - 1.0 mg/dL LAB URINALYSIS - AUTOMATED METHOD 03/30/2024 4:52 PM [facility] Bilirubin, Urine Negative Negative LAB URINALYSIS - AUTOMATED METHOD 03/30/2024 4:52 PM [facility] Blood, Urine Negative Negative LAB URINALYSIS - AUTOMATED METHOD 03/30/2024 4:52 PM EST [facility] Urine Urine specimen obtained by clean catch procedure / Unknown Non-blood Collection / Unknown 03/30/2024 4:22 PM EST 03/30/2024 4:40 PM EST Tobin MAGUIRE LAB URINE ORDERABLES Angelique l Result Performing Organization Address [facility] Co de Phone Number [facility] [address] [place] [address], [place] [phone] * Troponin I high sensitivity (03/30/2024 3:21 PM EST) Pathologist [facility] High Sensitivity Troponin I 9 <=79 ng/L LAB CHEMISTRY METHOD 03/30/2024 4:02 PM EST [facility] Blood Venous blood specimen / Unknown Venipuncture / Unknown 03/30/2024 3:21 PM EST 03/30/2024 3:35 PM EST Narrative [facility] - 03/30/2024 4:02 PM EST High levels of biotin in samples may falsely decrease hsTroponin values. ??Use caution when interpreting hsTroponin results in patients taking biotin who exhibit renal impairment (eGFR <60) or in patients taking more than 20 mg/day of biotin. us Tobin MAGUIRE LAB BLOOD ORDERABLES Angeliqeu l Result Performing Organization Address [facility] Co de Phone Number [facility] [address] [place] [address], [place] [phone] * B-type natriuretic peptide (03/30/2024 3:21 PM EST) [facility] BNP 75 <=100 pcg/mL LAB CHEMISTRY METHOD 03/30/2024 4:09 PM EST [facility] Blood Venous blood specimen / Unknown Venipuncture / Unknown 03/30/2024 3:21 PM EST 03/30/2024 3:35 PM EST us Tobin MAGUIRE LAB BLOOD ORDERABLES Angelique pichardo Result [facility] [place] [address] [place] [address], [place] [phone] * CT Angio Chest wo and/or w [...] Signed Date: 03/30/2024 14:53 ET Workstation ID: [id number] Transcribed By: Self Edit Transcribed Date: 03/30/2024 [...] Signed Date: 03/30/2024 14:53 ET Workstation ID: [id number] Transcribed By: Self Edit Transcribed Date: 03/30/2024 14:48 ET Tobin MAGUIRE IMG CT PROCEDURES Final R esult * Respiratory virus panel molecular study (03/30/2024 11:59 AM EST) Adenovirus Detection by PCR Not Detected Not Detected LAB MICROBIOLOGY METHOD 03/30/2024 1:28 PM [facility] Influenza A PCR Not Detected Not Detected LAB MICROBIOLOGY METHOD 03/30/2024 1:28 PM [facility] Influenza B PCR Not Detected Not Detected LAB MICROBIOLOGY METHOD 03/30/2024 1:28 PM [facility] Coronavirus 229E Not Detected Not Detected LAB MICROBIOLOGY METHOD 03/30/2024 1:28 PM [facility] Coronavirus HKU1 Not Detected Not Detected LAB MICROBIOLOGY METHOD 03/30/2024 1:28 PM [facility] Coronavirus OC43 Not Detected Not Detected LAB MICROBIOLOGY METHOD 03/30/2024 1:28 PM [facility] Coronavirus NL63 Not Detected Not Detected LAB MICROBIOLOGY METHOD 03/30/2024 1:28 PM [facility] Parainfluenza Virus 1 Not Detected Not Detected LAB MICROBIOLOGY METHOD 03/30/2024 1:28 PM [facility] Parainfluenza Virus 2 Not Detected Not Detected LAB MICROBIOLOGY METHOD 03/30/2024 1:28 PM [facility] Parainfluenza Virus 3 Not Detected Not Detected LAB MICROBIOLOGY METHOD 03/30/2024 1:28 PM [facility] Parainfluenza Virus 4 Not Detected Not Detected LAB MICROBIOLOGY METHOD 03/30/2024 1:28 PM [facility] RSV PCR Not Detected Not Detected LAB MICROBIOLOGY METHOD 03/30/2024 1:28 PM [facility] Human Metapneumovirus A and B Not Detected Not Detected LAB MICROBIOLOGY METHOD 03/30/2024 1:28 PM [facility] Rhinovirus/Entero virus Not Detected Not Detected LAB MICROBIOLOGY METHOD 03/30/2024 1:28 PM [facility] Bordetella pertussis Not Detected Not Detected LAB MICROBIOLOGY METHOD 03/30/2024 1:28 PM [facility] Bordetella parapertussis Not Detected Not Detected LAB MICROBIOLOGY METHOD 03/30/2024 1:28 PM [facility] Mycoplasma pneumo by PCR Not Detected Not Detected LAB MICROBIOLOGY METHOD 03/30/2024 1:28 PM [facility] Chlamydia pneumoniae Not Detected Not Detected LAB MICROBIOLOGY METHOD 03/30/2024 1:28 PM [facility] SARS COV-2 Not Detected Not Detected LAB MICROBIOLOGY METHOD 03/30/2024 1:28 PM [facility] Swab Both anterior nares / Unknown Non-blood Collection / Unknown 03/30/2024 11:59 AM EST 03/30/2024 12:10 PM EST [facility] - 03/30/2024 1:28 PM EST Testing was performed using the [employer] Respiratory Pathogen PCR Assay. All results must [...] L ORDERABLES Final Result Performing Organization Address [facility] Co de Phone Number [facility] [address] [place] [address], [place] [phone] * ECG 12 lead (03/30/2024 9:24 AM EST) Ventricular Rate ECG 121 BPM GEMUSE Atrial Rate 121 BPM GEMUSE P-R Interval 162 ms GEMUSE QRS Duration 82 ms GEMUSE Q-T Interval 320 ms GEMUSE QTc 454 ms GEMUSE P Wave [facility] 43 degrees GEMUSE R [facility] 8 degrees GEMUSE T [facility] 42 degrees GEMUSE ECG Interpretation Sinus tachycardia When compared with ECG of 18-MAR-2023 20:07, Nonspecific T wave abnormality no longer evident in Lateral leads Confirmed by DEEPA BARNES ([id number]) on 03/31/2024 5:16:49 AM GEMUSE 03/30/2024 9:24 AM EST 03/31/2024 5:16 AM EST Tobin MAGUIRE ECG ORDERABLES Final Res ult Performing Organization Address [facility] Co de Phone Number GEMUSE * (ABNORMAL) Thyroid stimulating hormone with reflex to free t4 and free t3 (TSH Reflex) (03/30/2024 8:38 AM EST) Pathologist [facility] TSH 4.06(H) 0.40 - 4.00 mcIU/mL LAB CHEMISTRY METHOD 03/30/2024 8:27 PM EST [facility] Blood Venous blood specimen / Unknown Venipuncture / Unknown 03/30/2024 8:38 AM EST 03/30/2024 8:46 AM EST Bozena MAGUIRE LAB BLOOD ORDERABLES F inal Result Performing Organization Address [facility] Co de Phone Number [facility] [address] [place] [address], * Free thyroxine with reflex to free triiodothyronine (03/30/2024 8:38 AM EST) Free T4 1.20 0.70 - 1.80 ng/dL LAB CHEMISTRY METHOD 03/30/2024 9:00 PM EST [facility] Blood Venous blood specimen / Unknown Venipuncture / Unknown 03/30/2024 8:38 AM EST 03/30/2024 8:46 AM EST Bozena MAGUIRE LAB BLOOD ORDERABLES F inal Result Performing Organization Address [facility] de Phone Number [facility] [address] [place] [address], * Triiodothyronine free (03/30/2024 8:38 AM EST) T3, Free 301 230 - 420 pcg/dL LAB CHEMISTRY METHOD 03/30/2024 9:27 PM EST [facility] Blood Venous blood specimen / Unknown Venipuncture / Unknown 03/30/2024 8:38 AM EST 03/30/2024 8:46 AM EST Bozena MAGUIRE LAB BLOOD ORDERABLES F inal Result Performing Organization Address [facility] Co de Phone Number [facility] [address] [place] [address], * Lipase (03/30/2024 8:38 AM EST) Lipase 56 13 - 75 unit/L LAB CHEMISTRY METHOD 03/30/2024 9:20 AM EST [facility] Blood Venous blood specimen / Unknown Venipuncture / Unknown 03/30/2024 8:38 AM EST 03/30/2024 8:46 AM EST us Jason Griffin DO LAB BLOOD ORDERABLES Final Res ult [facility] [address] [place] [address], * ECG-Annotated (03/30/2024) us Provider Onbase MD ECG ORDERABLES Final Result from Last 3 Months Additional Health Concerns Infection Onset Date Last Indicated Norovirus 03/31/2024 03/31/2024 Insurance MEDICARE [place] [address] Advance Directives * Full Code - Default (Latest Code Status on File) Date Activated Date Inactivated Comments 03/30/2024 8:16 PM 03/31/2024 3:41 PM This is order is used when code status has not been discussed with the patient, or code status is otherwise unknown/unconfirmed To update the patient's code status, place a code status order. Do not modify or discontinue any currently active code status orders. Care Teams Fingerprint Expert Relationship Specialty Start Date End Date Raji Amanda MD [address] [place] [address] [address] [place] [address] PCP - General Internal Medicine 03/30/24
--- OUTSIDE RECORDS SUMMARY | 2024-04-21 18:07 | XMS_ITS | Data Portability ---
Author Organization [facility], 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 Currently, he is having pain over the lateral aspect of his hip. He denies fevers, chills, night sweats, wound breakdown, or drainage. Physical examination: The patient is in no acute distress. He is alert and oriented x3. He has nonlabored breathing. His hearing is intact to spoken word. His extra-ocular motion is intact. Left lower extremity - Surgical incision is well-healed. There is no erythema, induration, or fluctuance. He has no pain with passive range of motion of the hip or axial loading of the lower extremity. He has moderate tenderness to palpation over the lateral aspect of the hip. Sensation is intact to light touch over the dorsum of the foot, in the first webspace, and over the plantar aspect of the foot. The patient has 5/5 strength with plantarflexion of the ankle, dorsiflexion of the ankle, plantarflexion of the great toe, and dorsiflexion of the great toe. The foot is warm and well-perfused with brisk capillary refill. Radiographs: 2 views of the left hip including low AP pelvis and left leg frog leg lateral radiographs were obtained and evaluated in the office today. X-rays demonstrate that the patient is status post left total hip arthroplasty. The implants appear to be in good overall alignment. There is no evidence of loosening or fracture. There is no evidence of stem subsidence or component migration. There is no evidence of eccentric polyethylene wear. Injection: The patient was given a corticosteroid injection in the office today for treatment of left hip trochanteric bursitis. Risks of the injection, including but not limited to infection were discussed. Despite the risks, the patient wished to proceed. The patient had an injection containing 2 cc of 1% lidocaine, 3 cc of 1/2% bupivacaine, and 1 cc of Kenalog injected into the left trochanteric bursa via a lateral approach under sterile technique. The patient tolerated this injection well. There were no complications. Following the injection the patient noted a decrease in pain. The patient was instructed to contact the office if the patient had any reaction at the injection site or any concerns. The patient was also instructed to keep track of how much pain relief the injection provided and how long the injection was effective. Assessment and Plan: The patient is status post left total hip arthroplasty. Currently, he is having pain over the lateral aspect of his hip consistent with trochanteric bursitis. He was given a corticosteroid injection for treatment of presumed trochanteric bursitis in the office today. There are no signs or symptoms consistent with infection. He has had an inflammatory labs drawn multiple times always been within normal limits. He is planning to see Dr. Velázquez to discuss a possible bursectomy. He can follow up for routine surveillance status post left total hip arthroplasty. [email or web address] Not available 08/21/2023 07:30:04 Plan of Treatment Reminders Order Date Submit Date Provider Last Modified By Organization Details Last Modified Time Details Appointments SURGERY @ [facility] 2024 11:30A Hamilton Velázquez MD Not available Not available Not available POST OP 15 2024 01:30P Hamilton Velázquez MD Not available Not available Not available Lab None recorded . Referral None recorded . Procedures None recorded . Surgeries None recorded . Imaging XR, hip, unilater al, 2 or 3 view - [address] [place] [place] [address]24 [facility], [address], [address], [place], [address], 09/10/2023 08:58:16 Medication Orders None recorded . Patient TargetsNo targets recorded. Patient InstructionsNo instructions recorded. Reason for Referral None Reported. Results Created Date Observation Date Name Description Value Unit Range Abnormal Flag Note LastModifiedBy Organization Detail LastModifiedTime 08/17/19 24 08/17/2023 XR, hip, unila teral , 2 or 3 view http:/ [email or web address] ?Encry pted=s hAaTro YD8dLq bEUv6g %2BXZw aYqtaq 0bqfl% 2Fg9IQ a4ajBk vP9nXo QUaueC m3YtLR FvZlgJ JJ8mAn HZtai3 4x3050 AC0KuY nmAUqT eUC8mr 84%3D INTERFACE [facility] [address], [place], [address], 08/17/2023 14:30:49 08/17/19 24 08/17/2023 XR, hip, unila teral , 2 or 3 view http:/ [email or web address] ?Encry pted=s hAaTro YD8dLq bEUv6g %2BXZw aYqtaq 0bqfl% 2Fg9IQ a4ajBk vP9nXo QUaueC m3YtLR FvZlgJ JJ8mAn HZtai3 8h0393 AC0KuY nmAUqT eUC8mr 84%3D INTERFACE [facility] [address], [place], [address], 08/17/2023 14:30:51 10/27/19 24 10/18/2022 imagi ng/di jamesos tic resul t No observ ation record ed. [email or web address] Not Available 09/28 10:43:11 Result Notes None recorded. Procedures Surgical History Date Name Laterality Status Provider Name and Address Organization Details Recorded Time 4 Hip Kenalog 1cc Injection, L/R completed Ritchie Miller MD [address], [place], [address], [facility] 08/21/2023 07:30:14 Imaging Results Imaging Date Name Status LastModified by Organiz ation Details LastModified Time 08/17/2023 XR, hip, unilateral, 2 or 3 view completed INTERFACE [facility] [address], [place], [address], 08/17/2023 14:30:49 08/17/2023 XR, hip, unilateral, 2 or 3 view completed INTER[facility] [address], [place], [address], 08/17/2023 14:30:51 10/18/2022 imaging/diag nostic result completed [email or web address] Information not available 10/27/2023 10:43:11 Procedure Notes None recorded. Medical Equipment None Reported. Allergies No known drug allergies Medications Name Sig Start Date Stop Date Status Note LastModified by Organization Details LastModified Time amoxicillin 500 mg capsule 4 pills 1 hour prior to procedure active Not Available Not Available No t Available ibuprofen 800 mg tablet TAKE 1 TABLET BY MOUTH EVERY 8 HOURS NEEDED FOR MODERATE PAIN SCALE 4-6. TAKE WITH FOOD active Not Available Not Available No t Available meloxicam 15 mg tablet TAKE 1 TABLET BY MOUTH EVERY DAY WITH FOOD OR MILK active Not Available Not Available No t Available prednisone 20 mg tablet TAKE 1 TABLET BY MOUTH DAILY FOR 3 DAYS active Not Available Not Available No t Available clonazepam 0.5 mg tablet TAKE 1 TABLET ORALLY 2 TIMES A DAY active Not Available Not Available No t Available allopurinol 100 mg tablet TAKE 1 TABLET BY MOUTH EVERY OTHER DAY active Not Available Not Available No t Available aspirin 81 mg tablet,anatoly yed release TAKE 1 TABLET BY MOUTH TWICE A DAY 10/18 completed Not Available Not Available Not Available acetaminoph en 500 mg tablet TAKE 2 TABLETS BY MOUTH THREE TIMES A DAY active Not Available Not Available No t Available sildenafil 100 mg tablet TAKE 1 TABLET BY MOUTH ONCE DAILY NEEDED FOR SEXUAL ACTIVITY; ADMINISTE R 30 MINUTES TO 2 HOURS BEFORE ACTIVITY. NO MORE THAN TWICE WEEKLY active Not Available Not Available No t Available tamsulosin 0.4 mg capsule TAKE 1 CAPSULE BY MOUTH AT BEDTIME FOR 7 DAYS active Not Available Not Available No t Available omeprazole 20 mg capsule,del ayed release TAKE 1 CAPSULE BY MOUTH EVERY DAY IN THE MORNING active Not Available Not Available No t Available doxazosin 4 mg tablet TAKE 1 TABLET BY MOUTH EVERY DAY AT BEDTIME 10/18 completed Not Available Not Available Not Available ondansetron 4 mg disintegrat ing tablet TAKE 1 TABLET BY MOUTH EVERY 6 HOURS NEEDED FOR NAUSEA AND VOMITING 10/18 completed Not Available Not Available Not Available doxycycline hyclate 100 mg tablet TAKE 1 TAB BY MOUTH TWICE A DAY FOR 1 WEEK THEN TAPER TO ONCE A DAY FOR 1 WEEK active Not Available Not Available No t Available naproxen 500 mg tablet TAKE 1 TABLET BY MOUTH TWICE A DAY FOR 7 DAYS active Not Available Not Available No t Available oxycodone 5 mg tablet TAKE 1 TABLET BY MOUTH EVERY 6 TO 8 HOURS NEEDED FOR PAIN PARTIAL FILL UPON PATIENT REQUEST. 10/18 completed Not Available Not Available Not Available neomycin 3.5 mg/g-polymy mariella B 10,000 unit/g-dexa meth 0.1 % eye oint AFTER HOT PACK AND MASSAGE APPLY 1/4 INCH STRIP TO AFFECTED AREAD THREE TO FOUR TIMES A DAY active Not Available Not Available No t Available tadalafil 5 mg tablet TAKE 1 TABLET BY MOUTH ONCE DAILY active Not Available Not Available No t Available entecavir 0.5 mg tablet active Not Available Not Available Not Available Vitamin B6 active Not Available Not Av ailable Not Available Vitals Date Recorded Body height Provider Name an d Address Organization Details Last Updated DateTime 08/17/2023 180.34 cm OLGA MASTERSON [facility] 08/17/2023 14:22:04 Date Recorded Body height Body mass index (BMI) Body weight Provider Name and Address Organization Details Last Updated DateTime 10/19/2023 180.34 cm 35.4 kg/m2 030982.46 g Anna Lawrence [facility] 10/19/2023 09:24:31 Date Recorded Body height Body mass index (BMI) Body weight Provider Name and Address Organization Details Last Updated DateTime 03/14/2024 182.88 cm 34.6 kg/m2 890000.05 g DONNIE MANNING [facility] 03/14/2024 08:06:08 Social History None recorded. Functional Status None recorded. Mental Status None recorded. Family History Nothing Reported. Medical History No medical history recorded. Past Encounters Encounter ID Performer Location Encounter Start Date Encounter Closed Date Diagnosis/Indication Diagnosis SNOMED-CT Code Diagnosis ICD10 Code Diagnosis Note [id number] Ritchie Miller MD [facility] [address] [place] [address] 08/17/2023 14:06:06 09/10/2023 08:58:16 History of total replacement of left hip joint 5157111938 346994 Z96.642 Trochanter ic bursitis of left hip 4481173768 91326 M70.62 [id number] MD [facility] [address] [place] [address] 10/19/2023 09:10:03 11/13/2023 10:21:40 Trochanteric bursitis of left hip [id number] 01134 M70.62 [id number] Wong Velázquez MD [facility] [address] [address] [place] [address] 03/14/2024 07:41:37 03/28/2024 15:51:44 Trochanteric bursitis of left hip [id number] 71590 M70.62 Health Concerns Section Related Observation LastModified by Organization Detai ls LastModified Time None Recorded Concern Status LastModified by Organization Details LastModified Time None Recorded Advance Directives Directive None Recorded Payers Encounter Date Sequence Insurance Name Policy Number Policy Rust Covered Member ID Rust Member ID Guarantor Name 08/17/2023 2 [place] [id number] Gene Cordero [id number] Gene Cordero 08/17/2023 1 [place] [employer] [place] Gene Cordero [id number] Gene Cordero 10/19/2023 2 [place] [id number] Gene Cordero [id number] Gene Cordero 10/19/2023 1 [place] Gene Cordero [id number] Gene Cordero 03/14/2024 2 [place] [id number] Gene Cordero [id number] Gene Cordero 03/14/2024 1 [place] Gene Cordero [id number] Gene Cordero Notes Date Note Type Note Provider Name and Address Organization Details Recorded Time 10/19/2023 text/html CC: Left lateral hip pain Interval history: Patient following up today for left lateral hip pain status post total hip arthroplasty. He has been following with Dr. Cornell. Trochanteric bursa injection administered August 17, 2023. Reports he is only had minimal relief with injection. He reports 50% relief for 1 week after the injection. Continues to have lateral hip pain and struggles going up and down stairs. To recap last visit March 08, 2023: Patient following up today for left lateral hip pain with diagnosis of trochanteric bursitis status post total hip arthroplasty. Patient reports he continues to have pain although symptoms have not been overly limiting. 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 HPI: Patient is a 76-year-old male status post left total hip arthroplasty performed by Dr. Epifanio Barfield on May 03, 2021 here today with a chief complaint of left lateral hip pain. Patient reports he started having symptoms around 6 months after the operation. pain localizes to the lateral aspect of his hip. He denies any groin pain. He has had fairly extensive treatment including physical therapy, medication, and several steroid injections which have not provided relief. MRI of the hip has been obtained.Ambulates with a mildly antalgic gaitPain and inability perform single leg stance bilaterally. Pain localizes to the lateral aspect of the hip with attempted single-leg stance.HipSIDE: LeftINSPECTION: Well healed surgical scar No swelling, ecchymosis, or muscle atrophy of the hipPALPATION: No tenderness to palpation over the iliopsoas. Positive tenderness palpation of the greater trochanterROM:Denies groin pain with passive range of motion hip flexion, internal external rotation. Mild lateral hip pain with passive hip range of motion.AMIRAH: NegativeLogroll: NegativeSTRENGTH: 5/5 strength to resisted straight leg raise bilateral 5/5 strength resisted hip abduction Imaging previously reviewed:X-rays previously obtained AP pelvis and left hip demonstrate well fixed total hip arthroplasty. There is no subsidence, osteolyses or signs of loosening. No calcifications.MRI left hip obtained on October 18, 2022 previously reviewed: All available sequence were not completed. There is some artifact from the arthroplasty. Gluteus medius and minimus tendon intact Impression: Left hip trochanteric bursitis status post total hip arthroplastyPlan: Patient reports symptoms unchanged. Complaints of pain localizing to the lateral aspect of his hip. Somewhat limited MRI secondary to total hip arthroplasty however no obvious gluteus medius or minimus tear. He has had several corticosteroid injections with limited response. We again discussed treatment options. 1 option would be to continue with observation and periodic corticosteroid injection. We also discussed trying PRP injection. We discussed the experimental nature and [id number] cost with PRP injection. Third option would be surgery. Proposed procedure: Left hip trochanteric bursectomy, IT band lengthening. Nature of the proposed procedure, reasonable expectations, anticipated rehabilitation timeline, and restrictions discussed. Risks, benefits, and alternatives of the procedure reviewed. Risks include bleeding, infection, damage to neurovascular structures, pain after surgery, ain, weakness, inability to return to previous level of activity, medical and anesthesia related complications, and thromboembolic events. We discussed this is a difficult problem and possible that he have ongoing symptoms after surgical intervention. Patient had a chance to have all questions answered. He will think over options further. He was provided contact information for our hydraulic and plumbing installer and can call if he would like to start the booking process. Wong Velázquez MD [address] [place] [address] [address], [place], [address], [facility] 10/19/2023 13:45:40 03/14/2024 text/html CC: Left lateral hip painInterval history: Patient reports ongoing, constant, moderate to severe lateral left hip pain. At this point he is interested in surgery.To recap last visit October 19, 2023: Patient following up today for left lateral hip pain status post total hip arthroplasty. He has been following with Dr. Cornell. Trochanteric bursa injection administered August 17, 2023. Reports he is only had minimal relief with injection. He reports 50% relief for 1 week after the injection. Continues to have lateral hip pain and struggles going up and down stairs.To recap last visit March 08, 2023: Patient following up today for left lateral hip pain with diagnosis of trochanteric bursitis status post total hip arthroplasty. Patient reports he continues to have pain although symptoms have not been overly limiting. 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 Epifanio Barfield on May 03, 2021 here today with a chief complaint of left lateral hip pain. Patient reports he started having symptoms around 6 months after the operation. pain localizes to the lateral aspect of his hip. He denies any groin pain. He has had fairly extensive treatment including physical therapy, medication, and several steroid injections which have not provided relief. MRI of the hip has been obtained.Ambulates with a mildly antalgic gaitPain and inability perform single leg stance bilaterally. Pain localizes to the lateral aspect of the hip with attempted single-leg stance.HipSIDE: LeftINSPECTION: Well healed surgical scar No swelling, ecchymosis, or muscle atrophy of the hipPALPATION: No tenderness to palpation over the iliopsoas. Positive tenderness palpation of the greater trochanterROM:Denies groin pain with passive range of motion hip flexion, internal external rotation. Mild lateral hip pain with passive hip range of motion.AMIRAH: NegativeLogroll: NegativeSTRENGTH: 5/5 strength to resisted straight leg raise bilateral 5/5 strength resisted hip abduction with painImaging previously reviewed:X-rays previously obtained AP pelvis and left hip demonstrate well fixed total hip arthroplasty. There is no subsidence, osteolyses or signs of loosening. No calcifications.MRI left hip obtained on October 18, 2022 previously reviewed: All available sequence were not completed. There is artifact from the arthroplasty. Gluteus medius and minimus tendon appear intact without discernible tearImpression: Left hip greater trochanteric pain syndrome status post total hip arthroplastyPlan: Patient reports symptoms unchanged. Complaints of pain localizing to the lateral aspect of his hip. Somewhat limited MRI secondary to total hip arthroplasty however no obvious gluteus medius or minimus tear. He has had several corticosteroid injections with limited response. We again discussed treatment options. 1 option would be to continue with observation and periodic corticosteroid injection. We also discussed trying PRP injection. We discussed the experimental nature and [id number] cost with PRP injection. Third option would be surgery. Proposed procedure: Left hip trochanteric bursectomy, IT band lengthening, possible abductor tendon repair. Nature of the proposed procedure, reasonable expectations, anticipated rehabilitation timeline, and restrictions discussed. Risks, benefits, and alternatives of the procedure reviewed. Risks include bleeding, infection, damage to neurovascular structures, pain after surgery, pain, weakness, inability to return to previous level of activity, medical and anesthesia related complications, and thromboembolic events. If repair is performed would require 6 weeks of bracing and protected weightbearing on the left lower extremity. We discussed this is a difficult problem and possible that he have ongoing symptoms after surgical intervention. Patient had a chance to have all questions answered. He wishes to move forward with surgical intervention. He has a walker. Brace will be ordered if a repair is performed. We will start the booking process. Wong Velázquez MD [address] [place] [address] [address], [place], [address], [facility] 03/14/2024 18:40:13
--- OUTSIDE RECORDS SUMMARY | 2024-04-21 18:07 | XMS_ITS | Clinical Summary ---
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 Name Role Phone [facility] Primary Care Provider [phone] [facility] Unavailable [phone] Reason for Visit and Chief Complaint Established Patient Plan of Treatment Pending Tests Order Diagnosis Results Due Ordering P rovider Follow Up - Appointment PRN Displ bi malleol fx r low leg, subs for clos fx w routn heal 10/02/23 Marcell Chase MD Last Documented On 4 7:46AM ; [facility] Assessments Includes: Assessments from this encounter No Assessments Recorded Medical Equipment - Implanted Devices Includes: Current Devices No Medical Equipment Recorded Medications Includes: Medications discussed during this encounter and other current Medications Current Medications (continue as prescribed) Tylenol Oral Tablet 07/02/2023 Provider: Diagnosis: Last Documented On 4 8:15AM By Cam Levy ; [facility] Medications Administered Includes: Administered Medications from this encounter No Administered Medications Recorded Vital Signs Includes: Vital Signs from this encounter Vital Name 10/02/2023 07:44A Blood Pressure Sitting (mmHg) 136/84 Pulse Rate-Sitting (bpm) 69 Temp-Temporal 97.1 Weight (lb) 252 Oxygen Saturation (%) 97 Last Documented: On 10/02/2023 7:44AM ; [facility] Results Includes: Results discussed during this encounter No Results Recorded For Specified Dates History of Present Illness Includes: History of Present Illness from this encounter No History of Present Illness Recorded Social History No Social History Recorded - Smoking Status Unknown Procedures and Surgical History Includes: Procedures from this encounter Procedures Code Diagnosis Performing Provider Service Location Service Date X-Ray Exam Of Ankle, minimum of 3 views (Right) 08063 Displ bimalleol fx r low leg, subs for clos fx w routn heal [facility] 10/02/2023 Last Documented On 4 2:11PM ; [facility] Medical History Includes: Medical History addressed during this encounter No Medical History Recorded Family History Includes: Family History addressed during this encounter No Family History Recorded Review of Systems Includes: Review of Systems from this encounter No Review of Systems Recorded Mental Status Includes: Mental Status from this encounter No Mental Status Recorded Functional Status Includes: Functional Status from this encounter No Functional Status Recorded Physical Exam Includes: Physical Exam from this encounter Encounters Encounter Provider Location Date Check-In Time Check-Out Time Diagnosis Established Patient [facility]cell Chase [facility] 10/02/19 24 8:00AM 7:44AM Insurance Includes: Active Insurance Policies Plan Name Member ID Group # Subscriber Relationship Effect yelena Dates 1 - Medicare Part B [facility] [id number] Gene FaulknerNurix Self 2 - Medex [id number] Gene FaulknerNurix Self 08/27/2015 - Unknown Clinical Notes Includes: Clinical Notes from this encounter * Progress note Date Encounter Last Documented by 10/02/2023 Established Patient Leandro espinoza on 10/02/2023; 7:46 AM, Marcell Chase MD; [facility] Current Medication - Tylenol Oral Tablet 0 days, 0 refills Physical Findings - Vitals taken 10/02/2023 07:44 am BP-Sitting 136/84 mmHg Pulse Rate-Sitting 69 bpm Temp-Temporal 97.1 F Weight 252 lbs Oxygen Saturation 97 % Chief complaint: Follow-up ORIF right ankle History of Present Illness: This is a 77-year-old man who had ORIF of his bimalleolar right ankle fracture with screw fixation of the medial malleolus on 03/19/2023. He was last seen on 07/02/2023. He was asked to follow-up in 3 months. He has no complaints today. He reports that he still has some discomfort with going up and down stairs but otherwise is doing well. Physical exam: Right ankle has no swelling or ecchymosis. The surgical incision on the medial malleolus is healed without sign of infection. He has no apparent pain with motion of the ankle today. Anterior drawer test is negative. Range of motion of the ankle is good. He is ambulating without an assistive device without a limp. Imaging: Radiographs of the right ankle taken today are compared to the prior images. The fractures appear to be healed in good position without widening of the ankle mortise. Impression: Status post ORIF right ankle Plan: The patient may continue to increase his activity to tolerance. He may continue with his home exercise program. He will return if he does not have progressive improvement in his symptoms. Plan StartCited - Displ bimalleol fx r low leg, subs for clos fx w routn heal Follow Up/Appointment: PRN EndCited
--- OUTSIDE RECORDS SUMMARY | 2024-04-21 18:07 | XMS_ITS | Clinical Summary ---
Author Organization [facility] Address [address] [place] [address] Phone Care Team Providers Care Web Operations Lead Name Role Phone Troy Horta [facility] Primary Care Provider [phone] [facility] [phone] Reason for Visit and Chief Complaint Post Op Visit/Follow Up Plan of Treatment Pending Tests Order Diagnosis Results Due Ordering P rovider Follow Up - Appointment 1 Month Pain in right ankle and joints of right foot 05/21/23 Jason Ramirez MD Last Documented On 4 9:48AM ; [facility] Assessments Includes: Assessments from this encounter No Assessments Recorded Medical Equipment - Implanted Devices Includes: Current Devices No Medical Equipment Recorded Medications Includes: Medications discussed during this encounter and other current Medications Current Medications (continue as prescribed) Tylenol Oral Tablet 07/02/2023 Provider: Diagnosis: Last Documented On 4 8:15AM By Cam Levy ; [facility] Medications Administered Includes: Administered Medications from this encounter No Administered Medications Recorded Results Includes: Results discussed during this encounter [...] Of Ankle, minimum of 3 views (Right) 20403 Pain in right ankle and joints of right foot Jason Ramirez MD [facility] 05/21/2023 Last Documented On 4 8:46AM ; [facility] Medical History Includes: Medical History addressed during this encounter No Medical History Recorded Family History Includes: Family History addressed during this encounter No Family History Recorded Review of Systems Includes: Review of Systems from this encounter CC: Right ankle bimalleolar fracture Medial malleolus fixation single screw Lateral malleolus Amaya a: Nonoperative treatment DOS: 03/19/2023 HPI: Extremely pleasant 77-year-old male returns today has been weight bearing walking in shoes Physical exam alert oriented nondistressed male..incisions healed well. Sensations intact distally good cap refill distally. good rom with some limitation. X-rays performed today right ankle 3 views AP lateral mortise Single medial malleoli are screw fixation remains anatomic. Without step-off displacement or rotation Medial malleolus. Amaya a fracture healing. Plan: Continue to be weightbearing as tolerated and ambulate and increase strength and do therapy and home exercise program. Follow-up in 6 weeks. Mental Status Includes: Mental Status from this encounter No Mental Status Recorded Functional Status Includes: Functional Status from this encounter No Functional Status Recorded Physical Exam Includes: Physical Exam from this encounter No Physical Exam Recorded Encounters Encounter Provider Location Date Check-In Time Check-Out Time Diagnosis Post Op Visit/Follow Up Jason Ramirez MD [facility], 05/21/19 24 9:20AM 9:43AM Insurance Includes: Active Insurance Policies Plan Name Member ID Group # Subscriber Relationship Effect yelena Dates 1 - Medicare Part B [facility] [id number] Gene Cordero Self 2 - [employer]ex [id number] Gene Cordero Self 08/27/2015 - Unknown Clinical Notes Includes: Clinical Notes from this encounter * Progress note Date Encounter Last Documented by 05/21/2023 Post Op Visit/Follow Up Last doc umented on 05/21/2023; 9:48 AM, Jason Ramirez MD; [facility], Plan StartCited - Pain in right ankle and joints of right foot Follow Up/Appointment: 1 Month EndCited User Defined 4 CC: Right ankle bimalleolar fracture Medial malleolus fixation single screw Lateral malleolus Amaya a: Nonoperative treatment DOS: 03/19/2023 HPI: Extremely pleasant 77-year-old male returns today has been weight bearing walking in shoes Physical exam alert oriented nondistressed male..incisions healed well. Sensations intact distally good cap refill distally. good rom with some limitation. X-rays performed today right ankle 3 views AP lateral mortise Single medial malleoli are screw fixation remains anatomic. Without step-off displacement or rotation Medial malleolus. Amaya a fracture healing. Plan: Continue to be weightbearing as tolerated and ambulate and increase strength and do therapy and home exercise program. Follow-up in 6 weeks.
--- OUTSIDE RECORDS SUMMARY | 2024-04-21 18:07 | XMS_ITS ---
Author [facility] [place] Address [address] [place] [address] Care Team Providers Care Blueprint Cutter Name Role Phone Raji Amanda MD Primary Care Provider Unavaila Sha Gaines Unavailable [phone] Allergies No Known Allergies REASON FOR VISIT [...] W/U Status Risk Notes Problem Tinea unguium (075253432) Tinea unguium (B35.1) Active confirmed Vital Signs Height 6ft in 02/22/2023 Weight 261 lbs 02/22/2023 BMI 35.39 kg/m2 02/22/2023 Encounters Encounter Location Date Provider [facility] [address] [place] [address] 02/22/2023 Sha Daugherty Tinea unguium B35.1 ; [...] * Gene CORDERO ADOB:[birth year] (77 yo M)Acc No.[id number]:02/22/2023 Progress Note Patient:?Gene Cordero A Provider:?Sha Daugherty DPM :1945???Age:77 Y???Sex:Male Sanjeev e:02/22/2023 Address:[address] [place] [address] Pcp:Raji Amanda MD Subjective: * Chief Complaints: [...] Daugherty DPM Date:?2022 Generated for Lauri castillo/Marya/Desiraeitting on:?04/21/2024 06:06 PM EST History and Physical Notes * [...]
--- OUTSIDE RECORDS SUMMARY | 2024-04-21 18:07 | XMS_ITS ---
Author Organization [facility] Address [address] [place] [address] Phone Care Team Providers Care Printing Roller Polisher Name Role Phone Troy Horta [facility] Primary Care Provider [phone] [facility] Unavailable [phone] Plan of Treatment No Plan of Treatment Recorded Assessments Includes: Assessments for all patient encounters No Assessments Recorded Medical Equipment - Implanted Devices Includes: Current and historical Devices No Medical Equipment Recorded Medications Includes: Current and historical Medications Current Medications (continue as prescribed) Tylenol Oral Tablet 07/02/2023 Provider: Diagnosis: Last Documented On 8:15AM By Cam Levy ; [facility] Medications Administered Includes: Administered Medications in patient's chart No Administered Medications Recorded Vital Signs Includes: Vital Signs from 04/21/2023 through 04/21/2024 Vital Name 10/02/2023 07:44A 07/02/2023 08: 13A Blood Pressure Sitting (mmHg) 136/84 121/72 Pulse Rate-Sitting (bpm) 69 116 Temp-Temporal 97.1 97.1 Weight (lb) 252 252 Oxygen Saturation (%) 97 95 Last Documented: On 10/02/2023 7:44AM ; [facility] On 07/02/2023 8:14AM ; [facility] Results Includes: Results from 04/21/2023 through 04/21/2024 No Results Recorded For Specified Dates History of Present Illness History of Present Illness not supported for this document type No History of Present Illness Recorded Social History No Social History Recorded - Smoking Status Unknown Procedures and Surgical History Includes: Procedures from 04/21/2023 through 04/21/2024 Procedures Code Diagnosis Performing Provider Service Location Service Date X-Ray Exam Of Ankle, minimum of 3 views (Right) [address] Displ bimalleol fx r low leg, subs for clos fx w routn heal [facility] 10/02/2023 Last Documented On 4 2:11PM ; [facility] X-Ray Exam Of Ankle, minimum of 3 views (Right) [address]72[address] Pain in right ankle and joints of right foot Jason Ramirez MD [facility] 05/21/2023 Last Documented On 4 8:46AM ; [facility] Medical History Includes: Medical History in patient's chart No Medical History Recorded Family History Includes: Family History in patient's chart No Family History Recorded Review of Systems Review of Systems not supported for this document type No Review of Systems Recorded Mental Status No Mental Status Recorded Functional Status No Functional Status Recorded Physical Exam Physical Exam not supported for this document type No Physical Exam Recorded Encounters Includes: Encounters from 04/21/2023 through 04/21/2024 Encounter Provider Location Date Check-In Time Check-Out Time Diagnosis Established Patient Marcell Chase MD [facility] 024 8:00AM 7:44AM Established Patient Tavo Blanco MD [facility] 024 8:20AM 8:27AM Post Op Visit/Follow Up Jason Ramirez MD [facility] 024 9:20AM 9:43AM Insurance Includes: Active Insurance Policies Plan Name Member ID Group # Subscriber Relationship Effect yelena Dates 1 - Medicare Part B [facility] [id number] Gene Cordero Self 2 - [employer] [id number] Gene Cordero Self 08/27/2015 - Unknown Clinical Notes Includes: Signed Clinical Notes starting from 02/05/2022 * Progress note Date Encounter Last Documented by 10/02/2023 Established Patient Leandro espinoza on 10/02/2023; 7:46 AM, Marcell Chase MD; [facility] Current Medication - Tylenol Oral Tablet 0 [...] w routn heal Follow Up/Appointment: PRN EndCited * Progress note Date Encounter Last Documented by 07/02/2023 Established Patient Last documen alexis on 07/02/2023; 10:04 AM, Tavo Blanco MD; [facility], Chief Complaint Closed displaced bimalleolar fracture right [...] final visit and repeat x-ray right ankle * Progress note Date Encounter Last Documented by 05/21/2023 Post Op Visit/Follow Up Last doc umented on 05/21/2023; 9:48 AM, Jason Ramirez MD; [facility] Plan StartCited - Pain in right ankle [...]
--- OUTSIDE RECORDS SUMMARY | 2024-04-21 18:07 | XMS_ITS ---
Author Organization [facility] Address [address] [place] [address] Care Team Providers Care Steeplechase Jockey Name Role Phone Raji Amanda MD Primary Care Provider Adam Moraes Unavailable [phone] ALLERGIES No Known Allergies REASON FOR VISIT Patient presents today for chronic hep b MEDICATIONS Medication SIG (Take, Route, Fr equency, Duration) Notes Start Date End Date Status Allopurinol 100 MG Oral for 90 Active Omeprazole 20 MG TAKE 1 CAPSULE BY [facility] EVERY DAY IN THE MORNING [...] SIGNS Blood pressure systolic 00 mm Hg 07/03/19 24 Blood pressure diastolic 00 mm Hg 024 Height 72 in 07/03/2023 Weight 251 lbs 07/03/2023 BMI 34.04 kg/m2 07/03/2023 Encounters Encounter Location Date Provider Diagnosis [facility] [address] [place] [address] 07/03/2023 Adam Beebe Chronic viral hepati tis [...] (ICD-10 - B18.1) Continue the daily Entecavir 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
--- OUTSIDE RECORDS SUMMARY | 2024-04-21 18:08 | XMS_ITS ---
Author [facility] Address [address] [place] [address] Care Team Providers Care Jewelry Polisher Name Role Phone Raji Amanda MD Primary Care Provider Unavaila Sha Gaines Unavailable [phone] REASON FOR VISIT Fungal Nails Medications Medication [...] 10/15/2023 Encounters Encounter Location Date Provider Diagnosis [facility] [address] [place] [phone] 10/15/2023 Sha Willow Tinea unguium B35.1 ; [...] Reason: Progress Notes * Gene CORDERO ADOB:[birth year] (78 yo M)Acc No.[id number]:10/15/2023 Progress Note Patient:?Gene CORDERO Provider:?Sha Daugherty DPM :1945???Age:77 Y???Sex:Male Sanjeev e:10/15/2023 Address:[address] [place], [place] [id number] Pcp:Raji Amanda MD Subjective: * Chief Complaints: [...] MG Tablet 1 tablet Orally Once a day Entecavir 0.5 MG Tablet as directed Orally Omeprazole 20 MG Capsule Delayed Release as directed Orally Vitamin B6 100 MG Tablet 1 tablet Orally Once a day Ciclopirox 0.77 % Gel 1 application to affected area Externally Twice a day to effected nails Taking Allopurinol 100 MG Tablet 1 tablet Orally Once a day Taking Entecavir 0.5 MG Tablet as directed Orally Taking Omeprazole 20 MG Capsule Delayed Release as directed Orally Taking Vitamin B6 100 MG Tablet 1 tablet Orally Once a day Taking Ciclopirox 0.77 % Gel 1 application to affected area Externally Twice a day to effected nails Not-Taking/PRNOmeprazole 20 MG Capsule Delayed Release 1 capsule 30 minutes before morning meal Orally Once a day Entecavir 0.5 MG Tablet 1 tablet on an empty stomach Orally Once a day Allopurinol 100 MG Tablet 1 tablet Orally Once a day Medication List reviewed and reconciled with the patientNot-Taking/PRN Omeprazole 20 MG Capsule Delayed Release 1 capsule 30 minutes before morning meal Orally Once a day Not-Taking/PRN Entecavir 0.5 MG Tablet 1 tablet on an empty stomach Orally Once a day Not-Taking/PRN Allopurinol 100 MG Tablet 1 tablet Orally Once a day Medication List reviewed and reconciled with the patient * Allergies:?yes[Allergies Vj ified] Objective: * Vitals:?Ht: 6ft, Wt:248, BMI : 33.63, Shoe size:11, Wt-k.49 kg. * Examination: ???Nails: ?NAILS are:?STILL, Elongated, overgrown, dystrophic, lytic, greater than 3mm thick, discolored and friable with crumbly malodorous subungual debris, with pain on palpation, NOW ALSO T3,?T4, T5.? Assessment: * Assessment: 1.?Tinea unguium - B35.1 (Pr imary)???Specify :Chronic problem, Stable (1=3,2=4),Rx Management (4),Response to treatment - Unresolved???2.?Pain in right toe(s) - M79.674???3.?Pain in left toe(s) - M79.675??? Plan: * Treatment: * Procedure Codes:? * [...] used for any petechial bleeding as necessary.? ??Screening/Special Tests:?Fall Risk?Screening:?No falls in the past year ?FALLS: Screening for Future Fall Risk?Have you had any falls with injury in the past year??No * Follow Up:?prn * Images: * Sign off status: Completed true * Provider:?Sha Daugherty DPM Date:?2023 Generated for Lauri castillo/Marya/Desiraeitting on:?04/21/2024 06:07 PM EST History and Physical Notes * [...]
--- OUTSIDE RECORDS SUMMARY | 2024-04-21 18:08 | XMS_ITS ---
Care Plan - [facility] Created on: April 21, 2024 Gene Cordero : 1945 Sex: Male Author Organization [facility] Address [address] [place] [address] Phone Care Team Providers Care Brokerage Clerk Name Role Phone Troy Horta Primary Care Provider [phone] [facility] Unavailable [phone]
--- OUTSIDE RECORDS SUMMARY | 2024-04-21 18:08 | XMS_ITS ---
Author Organization [facility] Address [address] [place] [address] Care Team Providers Care Briar Cutter Name Role Phone Raji Amanda MD Primary Care Provider Adam Moraes Unavailable [phone] REASON FOR VISIT Patient presents today for chronic hep b Encounters Encounter Location Date Provider Diagnosis [facility] [address] [place] [address] Drive [address] [place] [address] 03/23/2023 Adam Beebe PLAN OF TREATMENT Next Appt Details Provider Name:Adam Beebe , 02/11/2025 04:20:00 PM, [address] [facility], [address], [place], [address],
--- OUTSIDE RECORDS SUMMARY | 2024-04-21 18:08 | XMS_ITS ---
Author Organization [facility] Address [address] [place] [address] Care Team Providers Care Surveillance Operator Name Role Phone Raji Amanda MD Primary Care Provider Unavaila Sha Gaines Unavailable [phone] REASON FOR VISIT Ingrown nails Encounters Encounter Location Date Provider Diagnosis [facility] [address] [facility] [address] [place] [phone] 02/05/2023 Sha Daugherty Plan Of Treatment No Information Progress Notes * Gene CORDERO ADOB:[birth year] (77 yo M)Acc No.[id number]:02/05/2023 Patient:?Gene Cordero :1945???Age:77 Y???Sex:Male Address:[address] [place] [address] [place] [address], * true * Date:? Generated for Printi ng/Famariellag/eTransmitting on:?04/21/2024 06:08 PM EST
--- OUTSIDE RECORDS SUMMARY | 2024-04-21 18:08 | XMS_ITS | Clinical Summary ---
Author Organization [facility] Address [address] [place] [address] Phone Care Team Providers Care Typewriter Tester Name Role Phone [facility] Primary Care Provider [phone] [facility] [phone] Reason for Visit and Chief Complaint Post Op Visit/Follow Up Plan of Treatment No Plan of Treatment Recorded Assessments Includes: Assessments from this encounter No Assessments Recorded Medical Equipment - Implanted Devices Includes: Current Devices No Medical Equipment Recorded Medications Includes: Medications discussed during this encounter and other current Medications Current Medications (continue as prescribed) Tylenol Oral Tablet 07/02/2023 Provider: Diagnosis: Last Documented On 8:15AM By Cam Levy ; [facility] Medications Administered Includes: Administered Medications from this [...] Check-Out Time Diagnosis Post Op Visit/Follow Up Tobin Hui MD [facility] 04/19/19 24 9:20AM 9:58AM Insurance Includes: Active Insurance Policies Plan Name Member ID Group # Subscriber Relationship Effect yelena Dates 1 - Medicare Part B of [place] [id number] Gene Cordero Self 2 - [employer]ex [id number] Gene Cordero Self 08/27/2015 - Unknown Clinical Notes Includes: Clinical Notes from this encounter * Progress note Date Encounter Last Documented by 04/19/2023 Post Op Visit/Follow Up Last doc umented on 04/19/2023; 9:59 AM, Tobin Hui MD; [facility], Chief Complaint CC: Right ankle bimalleolar fracture Medial malleolus fixation single screw Lateral malleolus Amaya a: Nonoperative treatment DOS: 03/19/2023 HPI: Extremely pleasant 77-year-old male returns today has been nonweightbearing Has been in his boot 24 hours a day. He is a little bit frustrated and has been nonweightbearing till this time Physical exam alert oriented nondistressed male. He definitely has a little bit of irritation does appear acutely inflamed eschar over the medial incision. The lateral side is healed in nicely. Sensations intact distally good cap refill distally X-rays performed today right ankle 3 views AP lateral mortise Single medial malleoli are screw fixation remains anatomic. Without step-off displacement or rotation Medial malleolus. Amaya a fracture healing. Fracture line remains faintly visible Plan: 1. PT referral I have recommended patient initiate walker immediately as he has not been nonweightbearing to this time for balance issues Progress to weightbearing as tolerated Range of motion as tolerated Follow-up 5 to 6 weeks with x-rays right ankle LAKEISHA Hui MD
--- OUTSIDE RECORDS SUMMARY | 2024-04-21 18:08 | XMS_ITS | Clinical Summary ---
Author Organization [facility] Address [address] [place] [address] Phone Care Team Providers Care Manager Utilization Review Name Role Phone [facility] Primary Care Provider [phone] [facility] Unavailable [phone] Reason for Visit and Chief Complaint Post Op Visit/Follow Up Plan of Treatment Pending Tests Order Diagnosis Results Due Ordering P rovider Follow Up - Appointment 2 Weeks Displ bi malleol fx r low leg, subs for clos fx w routn heal 04/03/23 Marcell Chase MD Last Documented On 4 10:03AM ; [facility] Assessments Includes: Assessments from this encounter No Assessments Recorded Medical Equipment - Implanted Devices Includes: Current Devices No Medical Equipment Recorded Medications Includes: Medications discussed during this encounter and other current Medications Current Medications (continue as prescribed) Tylenol Oral Tablet 07/02/2023 Provider: Diagnosis: Last Documented On 4 8:15AM By Cam Levy ; [facility] Medications Administered Includes: Administered Medications from [...] Check-Out Time Diagnosis Post Op Visit/Follow Up Marcell Chase MD [facility] 04/03/19 24 9:00AM 10:14AM Insurance Includes: Active Insurance Policies Plan Name Member ID Group # Subscriber Relationship Effect yelena Dates 1 - Medicare Part B [facility] [id number] Gene Cordero Self 2 - Medex [id number] Gene Westbrook 08/27/2015 - Unknown Clinical Notes Includes: Clinical Notes from this encounter * Progress note Date Encounter Last Documented by 04/03/2023 Post Op Visit/Follow Up Last doc umented on 04/03/2023; 10:03 AM, Marcell Chase MD; [facility], Physical Findings Chief complaint: Follow-up ORIF right ankle History of Present Illness: This is a 77-year-old man who sustained a bimalleolar fracture of his right ankle. He had ORIF of the ankle by Dr. Hui on 03/19/2023. Fixation was performed of the medial malleolus and the lateral malleolus fracture was treated nonsurgically. He was last seen on 03/27/2023. He was asked to return in 1 week for suture removal. He was instructed to be nonweightbearing on the right lower extremity. He reports that he has been attempting to comply with that instruction. Physical exam: The surgical wound appears to be healing without signs of infection. There is no redness or drainage. There is a small amount of eschar over the wound. There is moderate residual swelling. There is a healing fracture blister over the lateral malleolus. Motor and sensory exams are intact. The toes are pink and warm with good capillary refill. Imaging: Radiographs of the right ankle taken today are compared to the prior images. There has been no change in reduction of the fracture or position of the implants. Impression: Status post ORIF bimalleolar fracture right ankle. Plan: The sutures are removed from the medial malleolus wound. Steri-Strips were applied. I emphasized to the patient that he should be strictly nonweightbearing on the right lower extremity for now. He should wear the boot full-time but may remove it once daily for bathing. I asked him to return in 2 weeks for wound check and repeat x-rays of the right ankle. I told him that he would probably be nonweightbearing until about 6 weeks postop. Plan StartCited - Displ bimalleol fx r low leg, subs for clos fx w routn heal Follow Up/Appointment: 2 Weeks EndCited
== END 2024-04-21 16:34 | disposition home or self-care (01) ==
PROVIDERS: PCP Internal Medicine; Visit Provider Urology
DX: R82.994 Hypercalciuria (principal); N20.0 Calculus of kidney; N52.9 Male erectile dysfunction, unspecified; Z13.9 Encounter for screening, unspecified
CPT/HCPCS: 99214

== ENCOUNTER → 2024-04-21 15:52 | Outpatient (BNVA) | payer MEDICARE, SELFPAY | PROVIDERS: PCP Internal Medicine; Visit Provider Urology | DX: R82.994 Hypercalciuria (principal); N20.0 Calculus of kidney; N52.9 Male erectile dysfunction, unspecified | CPT/HCPCS: 81003; 99212 ==

== ENCOUNTER 2024-04-24 14:38 | Outpatient (AMB) | payer MEDICARE, SELFPAY ==
--- NOTE | 2024-04-24 14:42 | HO.NEPHOV_ITS ---
Vital Signs 04/24/24 14:45 Height 6 ft Weight 257 lb 6 oz BMI 34.9 BP 120/64 Blood Pressure Location Lt brachial Position Sitting Pulse 84 Pulse Source Pulse Oximeter Pulse Oximetry (%) 95 Oxygen Delivery Method Room Air Intake Visit Reasons: INP: Calculus of kidney/Hypercalciuria Building Associate Required: No Accompanied by: Self / Same As Patient Allergies No Known Allergies Allergy (Verified 04/24/24 14:44) HPI Comments Details: I had the privilege of seeing Gene in consultation for renal calculi. He is a 77-year-old male who had presented to the ER in the past with flank pain. CT imaging at that time noted bilateral kidney stones. He had left ureteral stent placement with subsequent ESWL and stent removal. He had 24 hour urine collection in the past. His Stone analysis on 04/2023--Calcium Oxalate Dihydrate 15, Calcium Oxalate Monohydrate (Whewellite) 70%, Carbonate Apatite 15%. He has been trying to keep up with increased fluid intake, and low sodium diet. He continues to have renal calculi bilaterally. Patient is also on allopurinol.He has no hypertension or DM. Currently he does not have any flank pain, hematuria, supra pubic pain, nausea, vomiting or fever. His serum creatinine is normal and his BP is at goal. He is concerned about his ongoing nephrolithiasis. [facility] Medical History Preop exam for internal medicine Cirrhosis GERD (gastroesophageal reflux disease) Kidney stone Hepatitis B COVID-19 vaccine series completed Sleep apnea BPH (benign prostatic hyperplasia) Obesity Arthritis of left hip Anxiety Hip pain Surgical History History of total left hip arthroplasty History of lithotripsy H/O colonoscopy History of back surgery History of appendectomy History of tonsillectomy Family History Father No problems noted. Mother No problems noted. Daughter No problems noted. Social History Housing: House Are you a primary women's health care nurse practitioner to a significant other at home: No Do you presently have visiting nurse or other home services: No Alcohol intake: never Patient Tobacco Use Status: Never used Tobacco Tobacco use type: Cigarette e-Cigarette/Vaping Use: Never Used Second Hand Smoke Exposure: No service: No 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al status: retired 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 Cognitive needs: No Hearing needs: No Vision needs: Yes Review of Systems Const All systems reviewed & are unremarkable except as noted in HPI and below Physical Exam Vital Signs: Last Vital Signs Pulse 84 04/24/24 14:45 BP 120/64 04/24/24 14:45 Pulse Ox 95 04/24/24 14:45 Oxygen Delivery Method Room Air 04/24/24 14:45 BMI result Body Mass Index 34.9 Const General: comfortable and no acute distress Orientation/consciousness: patient oriented x3 HEENT Head: Yes normocephalic Mouth: Normal oral and palatal mucosa present Eyes EOM: EOMs intact bilaterally Neck Neck: Yes supple Resp Auscultation: clear to auscultation bilaterally Cardio Jugular venous distension: no JVD Rate: regular rate GI Palpation (GI): Soft to palpation Auscultation: normal bowel sounds Skin General skin exam: no rashes or lesions noted Neuro General: patient oriented x3 and moves all extremities Extrem General: Yes no pedal edema Results Reviewed Nephrology Results: Hgb 15.0 g/dl (14.0-18.0) 02/21/24 WBC 4.5 X10*3/uL (4.8-10.8) L 02/21/24 Plt Count 89 X10*3/uL (160-400) L 02/21/24 Sodium 140 mmol/L (135-145) 02/21/24 Potassium 4.5 mmol/L (3.3-5.1) 02/21/24 Chloride 109 mmol/L (96-108) H 02/21/24 Carbon Dioxide 24 mmol/L (22-29) 02/21/24 BUN 21 mg/dL (9-16) H 02/21/24 Creatinine 0.84 mg/dL (0.5-1.4) 02/21/24 Calcium 9.5 mg/dL (8.4-10.2) 02/21/24 Assessment & Plan Assessment & Plan (1) Bilateral kidney stones: Code(s): N20.0 - Calculus of kidney Category: Medical Plan He has calcium oxalate stones with hypercalciuria. He tries to maintain low sodium diet with adequate fluid intake. His stones are dominantly calcium ox alate. I started him on HCTZ. I may consider adjusting the dose and adding K citrate. I discussed the common side effects of HCTZ. He also should cut down oxalate in the diet. I did not make any other medication changes. Follow up labs ordered. Answered all questions. Shall arrange F/U imaging with time. Also should continue to follow up with Urology Orders: Orders Electrolytes 2 Months N20.0 - Calculus of kidney Calcium 2 Months N20.0 - Calculus of kidney Parathyroid Hormone Intact 2 Months N20.0 - Calculus of kidney Creatinine 2 Months N20.0 - Calculus of kidney Blood Urea Nitrogen 2 Months N20.0 - Calculus of kidney Medications: New hydrochlorothiazide 12.5 mg PO DAILY 90 tabs 3RF Coding Level of Care Code New Pt Level 4 (76883) Diagnoses Bilateral kidney stones N20.0
[2024-04-24 14:45] VITALS: BP 120/64; PULSE 84; O2SAT 95; BMI 34.9
--- OUTSIDE RECORDS SUMMARY | 2024-04-24 17:59 | XMS_ITS | Clinical Summary ---
Author Organization [facility] Address [address] [place] [address] Phone Care Team Providers Care Station Installer Name Role Phone [facility] Primary Care Provider [phone] [facility] [phone] Reason for Visit and Chief Complaint Post Op Visit/Follow Up Plan of Treatment Pending Tests Order Diagnosis Results Due Ordering P rovider Follow Up - Appointment 1 Month Pain in right ankle and joints of right foot 05/21/23 Jason Ramirez MD Last Documented On 4 9:48AM ; [facility] Assessments Includes: Assessments from this encounter No Assessments Recorded Medical Equipment - Implanted Devices Includes: Current Devices No Medical Equipment Recorded Medications Includes: Medications discussed during this encounter and other current Medications Current Medications (continue as prescribed) Tylenol Oral Tablet 07/02/2023 Provider: Diagnosis: Last Documented On 4 8:15AM By Cam Levy ; [facility] Medications Administered Includes: Administered Medications from [...] Of Ankle, minimum of 3 views (Right) 84881 Pain in right ankle and joints of right foot Jason Ramirez MD [facility] 05/21/2023 Last Documented On 4 8:46AM ; [facility] Medical History Includes: Medical History addressed during [...] Post Op Visit/Follow Up Jason Ramirez MD [facility], 05/21/19 24 9:20AM 9:43AM Insurance Includes: Active Insurance Policies Plan Name Member ID Group # Subscriber Relationship Effect yelena Dates 1 - Medicare Part B [facility] [id number] Gene Cordero Self 2 - [employer]ex [id number] Gene Cordero Self 08/27/2015 - Unknown Clinical Notes Includes: Clinical Notes from this encounter * Progress note Date Encounter Last Documented by 05/21/2023 Post Op Visit/Follow Up Last doc umented on 05/21/2023; 9:48 AM, Jason Ramirez MD; [facility], Plan StartCited - Pain in right ankle [...]
--- OUTSIDE RECORDS SUMMARY | 2024-04-24 17:59 | XMS_ITS ---
Author Organization [facility] Address [address] [place] [address] Care Team Providers Care Hot Strip Mill Supervisor Name Role Phone Raji Amanda MD Primary Care Provider Unavaila Sha Gaines Unavailable [phone] REASON FOR VISIT Fungal Nails Medications Medication [...] 10/15/2023 Encounters Encounter Location Date Provider Diagnosis [facility] [address] [place] [address] 10/15/2023 Sha Willow Tinea unguium B35.1 ; [...] * Gene CORDERO ADOB:[birth year] (78 yo M)Acc No.[id number]:10/15/2023 Progress Note Patient:?Gene CORDERO Provider:?Sha Daugherty DPM :1945???Age:77 Y???Sex:Male Sanjeev e:10/15/2023 Address:[address] [place], [place] [address] Pcp:Raji Amanda MD Subjective: * Chief Complaints: [...] Daugherty DPM Date:?2023 Generated for Lauri castillo/Marya/Alban on:?04/24/2024 05:59 PM EST History and Physical Notes * [...]
--- OUTSIDE RECORDS SUMMARY | 2024-04-24 17:59 | XMS_ITS | Data Portability ---
Author Organization [facility] Address [address] [place] [address] Care Team Providers Care Neon Tube Pumper Name Role Phone DONNA FLOWERS Primary Care Provider Assessment Encounter Date Assessment Date Assessment LastModified [...] surveillance status post left total hip arthroplasty. [email or web address] Not available 08/21/2023 07:30:04 Plan of Treatment [...] [facility], [address], [place], [address], 09/10/2023 08:58:16 Medication Orders None recorded . [...] a4ajBk vP9nXo QUaueC m3YtLR FvZlgJ JJ8mAn HZtai3 5r0285 AC0KuY nmAUqT eUC8mr 84%3D INTERFACE [facility] [address], [place], [address], 08/17/2023 14:30:49 08/17/19 24 08/17/2023 XR, hip, unila teral , 2 or 3 view http:/ [email or web address] ?Encry pted=s hAaTro YD8dLq bEUv6g %2BXZw aYqtaq 0bqfl% 2Fg9IQ a4ajBk vP9nXo QUaueC m3YtLR FvZlgJ JJ8mAn HZtai3 0l7124 AC0KuY nmAUqT eUC8mr 84%3D INTERFACE [facility] [address], [place], [address], 08/17/2023 14:30:51 10/27/19 24 10/18/2022 imagi ng/di jamesos tic resul t No observ ation record ed. [email or web address] Not Available 09/28 10:43:11 Result Notes None recorded. Procedures Surgical History Date Name Laterality Status Provider Name and Address Organization Details Recorded Time 4 Hip Kenalog 1cc Injection, L/R completed Ritchie Miller MD [address], [place], [address], [facility] 08/21/2023 07:30:14 Imaging Results Imaging Date Name Status LastModified by Organiz ation Details LastModified Time 08/17/2023 XR, hip, unilateral, 2 or 3 view completed INTERFACE [facility] [address], [place], [address], 08/17/2023 14:30:49 08/17/2023 XR, hip, unilateral, 2 or 3 view completed INTERFACE [facility] [address], [place], [address], 08/17/2023 14:30:51 10/18/2022 imaging/diag nostic result completed [...] Updated DateTime 08/17/2023 180.34 cm OLGA MASTERSON [facility] 08/17/2023 14:22:04 Date Recorded Body height Body mass index (BMI) Body weight Provider Name and Address Organization Details Last Updated DateTime 10/19/2023 180.34 cm 35.4 kg/m2 594885.46 g Anna Lawrence [facility] 10/19/2023 09:24:31 Date Recorded Body height Body mass index (BMI) Body weight Provider Name and Address Organization Details Last Updated DateTime 03/14/2024 182.88 cm 34.6 kg/m2 776072.05 g DONNIE MANNING [facility] 03/14/2024 08:06:08 Social History None recorded. Functional Status None recorded. Mental Status None recorded. Family History Nothing Reported. Medical History No medical history recorded. Past Encounters Encounter ID Performer Location Encounter Start Date Encounter Closed Date Diagnosis/Indication Diagnosis SNOMED-CT Code Diagnosis ICD10 Code Diagnosis Note [id number] Ritchie Miller MD [facility] [address] [place] [address] 08/17/2023 14:06:06 09/10/2023 08:58:16 History of total replacement of left hip joint 9839326352 870454 Z96.642 Trochanter ic bursitis of left hip 1366221518 78360 M70.62 [id number] MD [facility] [address] [place] [address] 10/19/2023 09:10:03 11/13/2023 10:21:40 Trochanteric bursitis of left hip 6217232978 58876 M70.62 [id number] Wong Vel[facility] [address] [place] [address] 03/14/2024 07:41:37 03/28/2024 15:51:44 Trochanteric bursitis of left hip 7421625776 79846 M70.62 Health Concerns Section Related Observation LastModified by Organization Detai ls LastModified Time None Recorded Concern Status LastModified by Organization Details LastModified Time None Recorded Advance Directives Directive None Recorded Payers Encounter Date Sequence Insurance Name Policy Number Policy Rust Covered Member ID Rust Member ID Guarantor Name 08/17/2023 2 [place] [id number] Gene Cordero [id number] Gene Cordero 08/17/2023 1 [place] Gene Cordero [id number] Gene Cordero 10/19/2023 2 [place] [id number] Gene Cordero [id number] Gene Cordero 10/19/2023 1 [place] Gene Cordero [id number] Gene Cordero 03/14/2024 2 [place] [id number] Gene Cordero [id number] Gene Cordero 03/14/2024 1 [place] Gene Cordero [id number] Gene Cordero Notes Date Note Type [...] 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 HPI: Patient is a 76-year-old male [...] injection. We discussed the experimental nature and bgq-ku-ntlvwa cost with PRP injection. Third option would [...] He was provided contact information for our certified ophthalmic surgical assistant and can call if he would like to start the booking process. 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 We discussed the experimental nature and gmt-nb-oilkzt cost with PRP injection. Third option would [...] start the booking process. Wong Velázquez MD [address] [place] [address] [address], [place], [address], [facility] 03/14/2024 18:40:13
--- OUTSIDE RECORDS SUMMARY | 2024-04-24 17:59 | XMS_ITS ---
Author Organization [facility] Address [address] [facility] [place] [address] Care Team Providers Care Wick Tender Name Role Phone Raji Amanda MD Primary Care Provider Unavaila Sha Gaines Unavailable [phone] Allergies No Known Allergies REASON FOR VISIT [...] W/U Status Risk Notes Problem Tinea unguium ([id number]) Tinea unguium (B35.1) Active confirmed Vital Signs Height 6ft in 02/22/2023 Weight 261 lbs 02/22/2023 BMI 35.39 kg/m2 02/22/2023 Encounters Encounter Location Date Provider Diagnosis [facility] [address] [place] [address] 02/22/2023 Sha Daugherty Tinea unguium B35.1 ; [...] * Gene CORDERO ADOB:[birth year] (77 yo M)Acc No.[id number]:02/22/2023 Progress Note Patient:?Gene Cordero A Provider:?Sha Daugherty DPM :1945???Age:77 Y???Sex:Male Sanjeev e:02/22/2023 Address:[address] [place] [address] Pcp:Raji Amanda MD Subjective: * Chief Complaints: [...] Daugherty DPM Date:?2022 Generated for Lauri castillo/Marya/Desiraeitting on:?04/24/2024 05:58 PM EST History and Physical Notes * [...]
--- OUTSIDE RECORDS SUMMARY | 2024-04-24 17:59 | XMS_ITS | Clinical Summary ---
Author Organization [facility] Address [address] [place] [address] Phone Care Team Providers Care Prick Stitcher Name Role Phone [facility] Primary Care Provider [phone] [facility] Unavailable [phone] Reason for Visit and Chief Complaint Established Patient Plan of Treatment 1. Continue OT/PT for right ankle. 2. Gait training with full weight right lower extremity. 3. Range of motion right ankle. 4. Activities of daily living. 5. Strengthening right ankle. 6. Return to office in 3 months for final visit and repeat x-ray right ankle - Last Documented On 07/02/2023 10:04AM ; [facility] Pending Tests Order Diagnosis Results Due Ordering Tarah pitt Follow Up - Appointment 3 Months Displ bi malleol fx r low leg, subs for clos fx w routn heal 07/02/23 Tavo Blanco MD Last Documented On 10:04AM ; [facility], Assessments Includes: Assessments from this encounter No Assessments Recorded Medical Equipment - Implanted Devices Includes: Current Devices No Medical Equipment Recorded Medications Includes: Medications discussed during this encounter and other current Medications Current Medications (continue as prescribed) Tylenol Oral Tablet 07/02/2023 Provider: Diagnosis: Last Documented On 8:15AM By Cam Levy ; [facility] Medications Administered Includes: Administered Medications from this encounter No Administered Medications Recorded Vital Signs Includes: Vital Signs from this encounter Vital Name 07/02/2023 08:13A Blood Pressure Sitting (mmHg) 121/72 Pulse Rate-Sitting (bpm) 116 Temp-Temporal 97.1 Weight (lb) 252 Oxygen Saturation (%) 95 Last Documented: On 07/02/2023 8:14AM ; [facility] Results Includes: Results discussed during this encounter [...] Time Diagnosis Established Patient Tavo Blanco MD [facility] 07/02/19 24 8:20AM 8:27AM Insurance Includes: Active Insurance Policies Plan Name Member ID Group # Subscriber Relationship Effect yelena Dates 1 - Medicare Part B [facility] [id number] [facility] Self 2 - Medex [id number] Gene Cordero Self 08/27/2015 - Unknown Clinical Notes Includes: Clinical Notes from this encounter * Progress note Date Encounter Last Documented by 07/02/2023 Established Patient Leandro espinoza on 07/02/2023; 10:04 AM, Tavo Blanco MD; [facility] Chief Complaint Closed displaced bimalleolar fracture [...]
--- OUTSIDE RECORDS SUMMARY | 2024-04-24 17:59 | XMS_ITS ---
Author Organization [facility] Address [address] [place] [address] Phone Care Team Providers Care Corporate Aircraft Mechanic Name Role Phone [employer] Primary Care Provider [phone] [facility] Unavailable [phone] Plan of Treatment No Plan of Treatment Recorded Assessments Includes: Assessments for all patient encounters No Assessments Recorded Medical Equipment - Implanted Devices Includes: Current and historical Devices No Medical Equipment Recorded Medications Includes: Current and historical Medications Current Medications (continue as prescribed) Tylenol Oral Tablet 07/02/2023 Provider: Diagnosis: Last Documented On 8:15AM By Cam Levy ; [facility] Medications Administered Includes: Administered Medications in patient's chart No Administered Medications Recorded Vital Signs Includes: Vital Signs from 04/24/2023 through 04/24/2024 Vital Name 10/02/2023 07:44A 07/02/2023 08: 13A Blood Pressure Sitting (mmHg) 136/84 121/72 Pulse Rate-Sitting (bpm) 69 116 Temp-Temporal 97.1 97.1 Weight (lb) 252 252 Oxygen Saturation (%) 97 95 Last Documented: On 10/02/2023 7:44AM ; [facility] On 07/02/2023 8:14AM ; [facility] Results Includes: Results from 04/24/2023 through 04/24/2024 No Results Recorded For Specified Dates History of Present Illness History of Present Illness not supported for this document type No History of Present Illness Recorded Social History No Social History Recorded - Smoking Status Unknown Procedures and Surgical History Includes: Procedures from 04/24/2023 through 04/24/2024 Procedures Code Diagnosis Performing Provider Service Location Service Date X-Ray Exam Of Ankle, minimum of 3 views (Right) 22649 Displ bimalleol fx r low leg, subs for clos fx w routn heal [facility]cell Chase [facility] 10/02/2023 Last Documented On 4 2:11PM ; [facility] X-Ray Exam Of Ankle, minimum of 3 views (Right) 47844 Pain in right ankle and joints of right foot Jason Ramirez MD [facility] 05/21/2023 Last Documented On 4 8:46AM ; [facility] Medical History Includes: Medical History in patient's [...] Physical Exam Recorded Encounters Includes: Encounters from 04/24/2023 through 04/24/2024 Encounter Provider Location Date Check-In Time Check-Out Time Diagnosis Established Patient Marcell Chase MD [facility] 024 8:00AM 7:44AM Established Patient Tavo Blanco MD [facility] 024 8:20AM 8:27AM Post Op Visit/Follow Up Jason Ramirez MD [facility] 024 9:20AM 9:43AM Insurance Includes: Active Insurance Policies Plan Name Member ID Group # Subscriber Relationship Effect yelena Dates 1 - Medicare Part B [facility] [id number] Gene Cordero Self 2 - [employer] [id number] Gene Cordero Self 08/27/2015 - Unknown Clinical Notes Includes: Signed Clinical Notes starting from 02/05/2022 * Progress note Date Encounter Last Documented by 10/02/2023 Established Patient Leandro espinoza on 10/02/2023; 7:46 AM, Marcell Chase MD; [facility] Current Medication - Tylenol Oral Tablet [...] on 07/02/2023; 10:04 AM, Tavo Blanco MD; [facility], Chief Complaint Closed displaced bimalleolar fracture right [...] on 05/21/2023; 9:48 AM, Jason Ramirez MD; [facility] Plan StartCited - Pain in right ankle [...]
--- OUTSIDE RECORDS SUMMARY | 2024-04-24 17:59 | XMS_ITS | Clinical Summary ---
Author Organization [facility] Address [address] [place] [address] Phone Care Team Providers Care Certified Pharmacy Tech Name Role Phone [employer] Primary Care Provider [phone] [facility] Un[facility] [phone] Reason for Visit and Chief Complaint Post [...] Documented On 8:15AM By Cam Levy ; [facility] Medications Administered Includes: Administered Medications [...] Post Op Visit/Follow Up Tobin Hui MD [facility] 04/19/19 24 9:20AM 9:58AM Insurance Includes: Active Insurance Policies Plan Name Member ID Group # Subscriber Relationship Effect yelena Dates 1 - Medicare Part B of [place] [id number] Gene Cordero Self 2 - [employer] [id number] Gene Cordero Self 08/27/2015 - Unknown Clinical Notes Includes: Clinical Notes from this encounter * Progress note Date Encounter Last Documented by 04/19/2023 Post Op Visit/Follow Up Last doc umented on 04/19/2023; 9:59 AM, Tobin Hui MD; [facility], Chief Complaint CC: Right ankle bimalleolar fracture [...]
--- OUTSIDE RECORDS SUMMARY | 2024-04-24 17:59 | XMS_ITS | Patient Health Record ---
Author Organization [facility] Address [address] [place] [address] Care Team Providers Care Milk Truck Driver Name Role Phone Raji Amanda MD Primary Care Provider Sha Caballero Unavailable [phone] Allergies No Known Allergies Reason For Referral [...] W/U Status Risk Notes Problem Tinea unguium (331890373) Tinea unguium (B35.1) Active confirmed Vital Signs Height 6ft in 10/15/2023 Weight 248 lbs 10/15/2023 BMI 33.63 kg/m2 10/15/2023 Encounters Encounter Location Date Provider Diagnosis [facility] [address] [address] 10/15/2023 Sha Daugherty Tinea unguium B35.1 ; [...] [employer] [address] [facility] [place] [address] [id number] Gene Corrigan Self - patient is the insured [employer] [address] [place] [address] [id number] Gene Corrigan Self - patient is the insured Medical (General) History Medical History History ICD Code Gall bladder problems Hepatitis B Liver disease Measles Mumps Chicken pox Bone implants/screws Surgical History Surgery Date(Month/Year) left hip replacement 05/03/21 ankle surgery - Fracture ORIF, Right 04/27 024 vein surgery 05/2023 Hospitalization History Reason Date(Month/Year) [facility] - Kidney stones 05/2023 [facility], Broken ankle 04/2023, 05/2023
--- OUTSIDE RECORDS SUMMARY | 2024-04-24 18:00 | XMS_ITS ---
Author Organization [facility] Address [address] [place] [address] Care Team Providers Care Medical Device Sales Name Role Phone Raji Amanda MD Primary Care Provider Adam Moraes Unavailable [phone] REASON FOR VISIT Patient presents today for chronic hep b Encounters Encounter Location Date Provider Diagnosis [facility] [address] [place] [address] Drive [address] [place] [address] 03/23/2023 Adam Beebe PLAN OF TREATMENT Next Appt Details Provider Name:Adam Beebe , 02/11/2025 04:20:00 PM, [address], [address], [place], [address],
--- OUTSIDE RECORDS SUMMARY | 2024-04-24 18:00 | XMS_ITS ---
Author Organization [facility] Address [address] [place] [address] Care Team Providers Care Headstart Teacher Name Role Phone Raji Amanda MD Primary Care Provider Unavaila Sha Gaines Unavailable [phone] REASON FOR VISIT Ingrown nails Encounters Encounter Location Date Provider Diagnosis [facility] [address] [place] [address] 02/05/2023 Sha Daugherty Plan Of Treatment No Information Progress Notes * Gene CORDERO ADOB:[birth year] (77 yo M)Acc No.[id number]:02/05/2023 Patient:?Gene Cordero :1945???Age:77 Y???Sex:Male Address:[address] [place] [address] [place] [address], * true * Date:? Generated for Printi ng/Famairellag/eTransmitting on:?04/24/2024 05:59 PM EST
--- OUTSIDE RECORDS SUMMARY | 2024-04-24 18:00 | XMS_ITS | Encounter Summary ---
Author Organization [facility] Address [address] [place] [address] Care Team Providers Care Internal Affairs Investigator Name Role Phone Raji Amanda MD Primary Care Provider [phone] Encounter Details Date Type Department Care Team (Latest Contact Info) Description 04/23/2024 1:09 PM EST - 04/23/2024 11:59 PM EST Hospital Encounter [facility] Xray [address] [place] [id number] Wheezing Discharge Disposition: Home or Self Care Social History Tobacco Use Types Packs/Day Years Used Date Smoking Tobacco: Never Smokeless Tobacco: Never Alcohol Use Standard Drinks/Week Comments Not Currently [...] for your loved ones. For example, child welfare counselor or elderly care for an older adult? [...] AM EST documented as of this encounter Medications at Time of Discharge [...] Discharge Disposition Disposition Code Departure Means Destination Home or Self Care documented in this encounter Plan of Treatment Not on file documented as of this encounter Procedures Procedure Name Priority Date/Time Associated Diagnosis Comments XR CHEST 2 VIEWS Routine 04/23/2024 1:31 PM EST Wheezing documented in this encounter Results * XR Chest 2 Views (04/23/2024 1:31 PM EST) Anatomical Region Laterality Modality Body Radiographic Citlali ging 04/23/2024 1:42 PM EST Impressions 04/23/2024 1:43 PM EST Impression: No active pulmonary process identified. Telerad TING ([id number]) -------- FINAL REPORT -------- Dictated By: Melisa Sierra Dictated Date: 04/23/2024 13:42 ET Assigned Physician: Melisa Sierra Reviewed and Electronically Signed By: Melisa Sierra Signed Date: 04/23/2024 13:43 ET Workstation ID: [id number] Transcribed By: Self Edit Transcribed Date: 04/23/2024 13:42 ET Narrative 04/23/2024 1:43 PM EST History: Persistent wheezing following norovirus infection. Comparison: Thoracic CTA 03/30/24 Findings: Upright AP and lateral views of the chest. The cardiac silhouette remains mildly enlarged. Atherosclerotic calcification and mild tortuosity the thoracic aorta are noted. Hilar contours and pulmonary vascularity appear normal. The lungs are clear. The costophrenic angles are sharp. Flowing hyperostosis is seen along the anterior aspect of the thoracic spine. Procedure Note Melisa Sierra MD - 04/23/2024 History: Persistent wheezing following norovirus infection. Comparison: Thoracic CTA 03/30/24 Findings: Upright AP and lateral views of the chest. The cardiac silhouette remains mildly enlarged. Atheroscleroticcalcification and mild tortuosity the thoracic aorta are noted. Hilarcontours and pulmonary vascularity appear normal. The lungs are clear. Thecostophrenic angles are sharp. Flowing hyperostosis is seen along the anterior aspect of the thoracicspine. IMPRESSION: Impression: No active pulmonary process identified. Telerad TING ([id number]) -------- FINAL REPORT -------- Dictated By: Melisa Sierra Dictated Date: 04/23/2024 13:42 ET Assigned Physician: Melisa Sierra Reviewed and Electronically Signed By: Melisa Sierra Signed Date: 04/23/2024 13:43 ET Workstation ID: [id number] Transcribed By: Self Edit Transcribed Date: 04/23/2024 13:42 ET us Crow Flores MD IMG XR PROCEDURES Final Resu lt documented in this encounter Visit Diagnoses Diagnosis Wheezing documented in this encounter Additional Health Concerns Infection Onset Date Last Indicated Resolved Time Norovirus 03/31/2024 03/31/2024 documented as of this encounter Care Teams Internal Affairs Investigator Relationship Specialty Start Date End Date Raji Amanda MD [address] [place] [address] [address] [place] [address] PCP - General Internal Medicine 03/30/24 documented as of this encounter
--- OUTSIDE RECORDS SUMMARY | 2024-04-24 18:00 | XMS_ITS ---
Author Organization [facility] Address [address] [place] [address] Care Team Providers Care Director Transportation Name Role Phone Raji Amanda MD Primary Care Provider Adam Moraes Unavailable [phone] ALLERGIES No Known Allergies REASON FOR VISIT [...] 02/06/2024 Encounters Encounter Location Date Provider Diagnosis [facility] [address] [place] [address] 02/06/2024 Adam Beebe Chronic viral hepati tis [...] 04:20:00 PM, [address], [address], [place], [address], Progress Notes * Examination Category Sub-Category Detail [...]
--- OUTSIDE RECORDS SUMMARY | 2024-04-24 18:00 | XMS_ITS | Clinical Summary ---
Author Organization [facility] Address [address] [place] [address] Phone Care Team Providers Care Surgical Instrument Maker Name Role Phone [facility] [employer] Primary Care Provider [phone] [facility] Unavailable [phone] Reason for Visit and Chief Complaint Established Patient Plan of Treatment Pending Tests Order Diagnosis Results Due Ordering P rovider Follow Up - Appointment PRN Displ bi malleol fx r low leg, subs for clos fx w routn heal 10/02/23 Marcell Chase MD Last Documented On 4 7:46AM ; [facility] Assessments Includes: Assessments from this encounter No Assessments Recorded Medical Equipment - Implanted Devices Includes: Current Devices No Medical Equipment Recorded Medications Includes: Medications discussed during this encounter and other current Medications Current Medications (continue as prescribed) Tylenol Oral Tablet 07/02/2023 Provider: Diagnosis: Last Documented On 4 8:15AM By Cam Levy ; [facility] Medications Administered Includes: Administered Medications from this encounter No Administered Medications Recorded Vital Signs Includes: Vital Signs from this encounter Vital Name 10/02/2023 07:44A Blood Pressure Sitting (mmHg) 136/84 Pulse Rate-Sitting (bpm) 69 Temp-Temporal 97.1 Weight (lb) 252 Oxygen Saturation (%) 97 Last Documented: On 10/02/2023 7:44AM ; [facility] Results Includes: Results discussed during this [...] Of Ankle, minimum of 3 views (Right) [address] Displ bimalleol fx r low leg, subs for clos fx w routn heal Marcell Chase MD [facility] 10/02/2023 Last Documented On 4 2:11PM ; [facility] Medical History Includes: Medical History addressed [...] Time Diagnosis Established Patient Marcell Chase MD [facility] 10/02/19 24 8:00AM 7:44AM Insurance Includes: Active Insurance Policies Plan Name Member ID Group # Subscriber Relationship Effect yelena Dates 1 - Medicare Part B [facility] [id number] Gene FaulknerUltralife Self 2 - [employer] [id number] Gene FaulknerUltralife Self 08/27/2015 - Unknown Clinical Notes Includes: Clinical Notes from this encounter * Progress note Date Encounter Last Documented by 10/02/2023 Established Patient Leandro espinoza on 10/02/2023; 7:46 AM, Marcell Chase MD; [facility] Current Medication - Tylenol Oral Tablet 0 [...]
--- OUTSIDE RECORDS SUMMARY | 2024-04-24 18:00 | XMS_ITS | Clinical Summary ---
Author Organization [facility] Address [address] [place] [address] Phone Care Team Providers Care Shank Maker Name Role Phone Raji Amanda MD Primary Care Provider [phone] Allergies No known active allergies Medications allopurinoL [...] Encounters Date Type Department Care Team Description 04/23/2024 1:09 PM EST - 04/23/2024 11:59 PM EST Hospital Encounter [facility] Xray [address] [place] [address] Wheezing Discharge Disposition: Home or Self Care 03/30/2024 8:24 AM EST - 03/31/2024 1:30 PM EST Emergency [facility] Intermediate Care Unit [address] [place] [address] AgathaLeodan MD Ishtiaq, Rizwan, MD Kela, Kashyap Devendrabhai, [...] care for your loved ones. For example, assistant child care teacher or elderly care for an older adult? [...] VIEWS Routine 04/23/2024 1:31 PM EST Wheezing COMPREHENSIVE METABOLIC PANEL STAT Add-on 03/31/2024 6:05 [...] 03/30/2024 from Last 3 Months Results * XR Chest 2 Views (04/23/2024 1:31 PM EST) Anatomical Region Laterality Modality Body Radiographic Citlali ging 04/23/2024 1:42 PM EST Impressions 04/23/2024 1:43 PM EST Impression: No active pulmonary process identified. Telerad TING ([id number]) -------- FINAL REPORT -------- Dictated By: Melisa Sierra Dictated Date: 04/23/2024 13:42 ET Assigned Physician: Melisa Sierra Reviewed and Electronically Signed By: Melisa Sierra Signed Date: 04/23/2024 13:43 ET Workstation ID: [id number] Transcribed By: Self Edit Transcribed Date: 04/23/2024 [...] Impression: No active pulmonary process identified. Telerad PA ([id number]) -------- FINAL REPORT -------- Dictated By: Melisa Sierra Dictated Date: 04/23/2024 13:42 ET Assigned Physician: Melisa Sierra Reviewed and Electronically Signed By: Melisa Sierra Signed Date: 04/23/2024 13:43 ET Workstation ID: [id number] Transcribed By: Self Edit Transcribed Date: 04/23/2024 13:42 ET us Crow Flores MD IMG XR PROCEDURES Final Resu lt * (ABNORMAL) CBC auto differential (03/31/2024 6:05 AM EST) Only the most recent of2 resultswithin the time period is included. WBC 4.0(L) 4.8 - 10.8 K/mcL LAB HEMETOLOGY METHOD 03/31/2024 8:24 AM [facility] RBC 4.30(L) 4.50 - 5.50 M/mcL LAB HEMETOLOGY METHOD 03/31/2024 8:24 AM [facility] Hemoglobin 11.8(L) 13.5 - 17.5 g/dL LAB HEMETOLOGY METHOD 03/31/2024 8:24 AM [facility] Hematocrit 37.1(L) 42.0 - 54.0 % LAB HEMETOLOGY METHOD 03/31/2024 8:24 AM [facility] MCV 87.1 79.0 - 98.0 FL LAB HEMETOLOGY METHOD 03/31/2024 8:24 AM [facility] MCH 27.7 27.0 - 32.0 pcg LAB HEMETOLOGY METHOD 03/31/2024 8:24 AM [facility] MCHC 31.8(L) 32.0 - 37.0 g/dL LAB HEMETOLOGY METHOD 03/31/2024 8:24 AM [facility] RDW 15.6(H) 11.0 - 15.0 % LAB HEMETOLOGY METHOD 03/31/2024 8:24 AM [facility] Platelets 88(L) 130 - 400 K/mcL LAB HEMETOLOGY METHOD 03/31/2024 8:24 AM [facility] Comment:reviewed by slide MPV 12.1(H) 7.0 - 11.0 FL LAB HEMETOLOGY METHOD 03/31/2024 8:24 AM [facility] NRBC 0.0 <1.0 % LAB HEMETOLOGY METHOD 03/31/2024 8:24 AM [facility] NRBC Absolute 0.00 <0.10 K/mcL LAB HEMETOLOGY METHOD 03/31/2024 8:24 AM [facility] Neutrophils Relative 79.3 % LAB HEMETOLOGY METHOD 03/31/2024 8:24 AM [facility] Lymphocytes Relative 9.9 % LAB HEMETOLOGY METHOD 03/31/2024 8:24 AM [facility] Monocytes Relative 10.4 % LAB HEMETOLOGY METHOD 03/31/2024 8:24 AM [facility] Eosinophils Relative 0.0 % LAB HEMETOLOGY METHOD 03/31/2024 8:24 AM [facility] Basophils Relative 0.2 % LAB HEMETOLOGY METHOD 03/31/2024 8:24 AM [facility] Immature Granulocytes Relative 0.2 % LAB HEMETOLOGY METHOD 03/31/2024 8:24 AM [facility] Neutrophils Absolute 3.20 1.50 - 7.00 K/mcL LAB HEMETOLOGY METHOD 03/31/2024 8:24 AM [facility] Lymphocytes Absolute 0.40(L) 1.00 - 5.00 K/mcL LAB HEMETOLOGY METHOD 03/31/2024 8:24 AM [facility] Monocytes Absolute 0.42 0.20 - 1.00 K/mcL LAB HEMETOLOGY METHOD 03/31/2024 8:24 AM EST [facility] Eosinophils Absolute 0.00 0.00 - 0.50 K/mcL LAB HEMETOLOGY METHOD 03/31/2024 8:24 AM EST [facility] Basophils Absolute 0.01 0.00 - 0.20 K/mcL LAB HEMETOLOGY METHOD 03/31/2024 8:24 AM EST [facility] Immature Granulocytes Absolute 0.01 0.00 - 0.03 K/mcL LAB HEMETOLOGY METHOD 03/31/2024 8:24 AM EST [facility] Blood Venous blood specimen / Unknown Venipuncture / Unknown 03/31/2024 6:05 AM EST 03/31/2024 7:14 AM EST Leland Esteban MD LAB BLOOD ORDERABLES Final Res ult Performing Organization Address City/[facility]/ZIP Co de Phone Number [facility] [address] [place] [address], [place] [phone] * (ABNORMAL) Magnesium (03/31/2024 6:05 AM EST) Magnesium 1.7(L) 1.9 - 2.6 mg/dL LAB CHEMISTRY METHOD 03/31/2024 7:52 AM EST [facility] Blood Venous blood specimen / Unknown Venipuncture / Unknown 03/31/2024 6:05 AM EST 03/31/2024 7:14 AM EST Leland Esteban MD LAB BLOOD ORDERABLES Final Res ult [facility] [address] [place] [address], [place] [phone] * (ABNORMAL) Comprehensive metabolic panel (03/31/2024 6:05 AM EST) Only the most recent of2 resultswithin the time period is included. Sodium 137 133 - 145 mmol/L LAB CHEMISTRY METHOD 03/31/2024 8:23 AM [facility] Potassium 3.8 3.5 - 5.5 mmol/L LAB CHEMISTRY METHOD 03/31/2024 8:23 AM [facility] Chloride 108 96 - 110 mmol/L LAB CHEMISTRY METHOD 03/31/2024 8:23 AM [facility] CO2 27 21 - 32 mmol/L LAB CHEMISTRY METHOD 03/31/2024 8:23 AM [facility] Anion Gap 2(L) 3 - 11 LAB CHEMISTRY METHOD 03/31/2024 8:23 AM [facility] Glucose 90 70 - 100 mg/dL LAB CHEMISTRY METHOD 03/31/2024 8:23 AM [facility] BUN 20 5 - 25 mg/dL LAB CHEMISTRY METHOD 03/31/2024 8:23 AM [facility] Creatinine 0.99 0.70 - 1.30 mg/dL LAB CHEMISTRY METHOD 03/31/2024 8:23 AM [facility] eGFR 77 >=60 mL/min/1. 73m2 LAB CHEMISTRY METHOD 03/31/2024 8:23 AM [facility] Comment:Calculation based on the??Chronic Kidney Disease Epidemiology Collaboration (CKD-EPI) equation refit??without adjustment for race. BUN/Creatinine Ratio 20.2 LAB CHEMISTRY METHOD 03/31/2024 8:23 AM [facility] Calcium 7.9(L) 8.5 - 10.5 mg/dL LAB CHEMISTRY METHOD 03/31/2024 8:23 AM [facility] AST (SGOT) 29 10 - 42 unit/L LAB CHEMISTRY METHOD 03/31/2024 8:23 AM [facility] ALT (SGPT) 24 10 - 60 unit/L LAB CHEMISTRY METHOD 03/31/2024 8:23 AM [facility] Alkaline Phosphatase 72 42 - 121 unit/L LAB CHEMISTRY METHOD 03/31/2024 8:23 AM [facility] Total Protein 5.7(L) 6.0 - 8.0 g/dL LAB CHEMISTRY METHOD 03/31/2024 8:23 AM [facility] Albumin 2.9(L) 3.2 - 5.0 g/dL LAB CHEMISTRY METHOD 03/31/2024 8:23 AM [facility] Total Bilirubin 1.3 0.0 - 1.4 mg/dL LAB CHEMISTRY METHOD 03/31/2024 8:23 AM [facility] Blood Venous blood specimen / Unknown Venipuncture / Unknown 03/31/2024 6:05 AM EST 03/31/2024 7:14 AM EST Mansi MAGUIRE LAB BLOOD ORDERABLES Final Result [facility] [address] [place] [address], * (ABNORMAL) Basic metabolic panel (03/31/2024 6:05 AM EST) Sodium 139 133 - 145 mmol/L LAB CHEMISTRY METHOD 03/31/2024 7:52 AM [facility] Potassium 3.8 3.5 - 5.5 mmol/L LAB CHEMISTRY METHOD 03/31/2024 7:52 AM [facility] Chloride 108 96 - 110 mmol/L LAB CHEMISTRY METHOD 03/31/2024 7:52 AM [facility] CO2 27 21 - 32 mmol/L LAB CHEMISTRY METHOD 03/31/2024 7:52 AM [facility] Anion Gap 4 3 - 11 LAB CHEMISTRY METHOD 03/31/2024 7:52 AM [facility] Glucose 93 70 - 100 mg/dL LAB CHEMISTRY METHOD 03/31/2024 7:52 AM [facility] BUN 19 5 - 25 mg/dL LAB CHEMISTRY METHOD 03/31/2024 7:52 AM [facility] Creatinine 0.99 0.70 - 1.30 mg/dL LAB CHEMISTRY METHOD 03/31/2024 7:52 AM [facility] eGFR 77 >=60 mL/min/1. 73m2 LAB CHEMISTRY METHOD 03/31/2024 7:52 AM [facility] Comment:Calculation based on the??Chronic Kidney Disease Epidemiology Collaboration (CKD-EPI) equation refit??without adjustment for race. BUN/Creatinine Ratio 19.2 LAB CHEMISTRY METHOD 03/31/2024 7:52 AM [facility] Calcium 7.9(L) 8.5 - 10.5 mg/dL LAB CHEMISTRY METHOD 03/31/2024 7:52 AM [facility] Blood Venous blood specimen / Unknown Venipuncture / Unknown 03/31/2024 6:05 AM EST 03/31/2024 7:14 AM EST us Leland Esteban MD LAB BLOOD ORDERABLES Final Res ult [facility] [address] [place] [address], [place] [phone] * (ABNORMAL) Gastrointestinal pathogens molecular study (03/31/2024 12:39 AM EST) Campylobacter Detection by PCR Not Detected Not Detected LAB MICROBIOLOGY METHOD 5 2:10 AM [facility] Plesiomonas shigelloides Detection by PCR Not Detected Not Detected LAB MICROBIOLOGY METHOD 5 2:10 AM [facility] Salmonella Detection by PCR Not Detected Not Detected LAB MICROBIOLOGY METHOD 5 2:10 AM [facility] Vibrio Detection by PCR Not Detected Not Detected LAB MICROBIOLOGY METHOD 5 2:10 AM [facility] Vibrio cholerae Detection by PCR Not Detected Not Detected LAB MICROBIOLOGY METHOD 5 2:10 AM [facility] Yersinia enterocolitica Detection by PCR Not Detected Not Detected LAB MICROBIOLOGY METHOD 5 2:10 AM [facility] Enteroaggregative E coli EAEC Detection by PCR Not Detected Not Detected LAB MICROBIOLOGY METHOD 5 2:10 AM [facility] Enteropathogenic E coli EPEC Detection Not Detected Not Detected LAB MICROBIOLOGY METHOD 5 2:10 AM [facility] Enterotoxigenic E coli ETEC LTST Detection Not Detected Not Detected LAB MICROBIOLOGY METHOD 5 2:10 AM [facility] Shiga-like toxin producing E coli STEC STX1 STX2 Det Not Detected Not Detected LAB MICROBIOLOGY METHOD 5 2:10 AM [facility] Shigella Enteroinvasive E coli EIEC Detection Not Detected Not Detected LAB MICROBIOLOGY METHOD 5 2:10 AM [facility] Cryptosporidium Detection by PCR Not Detected Not Detected LAB MICROBIOLOGY METHOD 5 2:10 AM [facility] Cyclospora cayetanensis Detection by PCR Not Detected Not Detected LAB MICROBIOLOGY METHOD 5 2:10 AM [facility] Entamoeba histolytica Detection by PCR Not Detected Not Detected LAB MICROBIOLOGY METHOD 5 2:10 AM [facility] Giardia lamblia Detection by PCR Not Detected Not Detected LAB MICROBIOLOGY METHOD 5 2:10 AM [facility] Adenovirus F 40 41 Detection by PCR Not Detected Not Detected LAB MICROBIOLOGY METHOD 5 2:10 AM [facility] Astrovirus Detection by PCR Not Detected Not Detected LAB MICROBIOLOGY METHOD 5 2:10 AM [facility] Norovirus GI GII Detection by PCR Detected(A ) Not Detected LAB MICROBIOLOGY METHOD 2:10 AM EST [facility] Sapovirus Detection by PCR Not Detected Not Detected LAB MICROBIOLOGY METHOD 2:10 AM [facility] Rotavirus A Detection by PCR Not Detected Not Detected LAB MICROBIOLOGY METHOD 2:10 AM [facility] Stool Rectum structure / Unknown Non-blood Collection / Unknown 03/31/2024 12:39 AM EST 03/31/2024 12:48 AM EST [facility] - 03/31/2024 2:10 AM EST [...] MICROBIOLOGY - GENE RAL ORDERABLES Final Result [facility] [address] [place] [address], * CT Abdomen Pelvis w Contrast (03/30/2024 [...] MD on 03/30/2024 22:42:38 Leland Esteban MD [facility] PROCEDURES Final Result * Culture blood (03/30/2024 9:37 PM EST) Only the most recent of2 resultswithin the time period is included. Culture, Blood No growth at 5 days 04/04/2024 11:01 PM EST [facility] Blood Venous blood specimen / Unknown Venipuncture / Unknown 03/30/2024 9:37 PM EST 03/30/2024 10:06 PM EST Leland Esteban MD LAB MICROBIOLOGY - GENERAL ORD ERABLES Final Result [facility] [address] [place] [address], [place] [phone] * Lactate, with reflex (03/30/2024 9:29 PM EST) Pathologist [facility] LACTIC ACID 1.8 0.4 - 2.0 mmol/L LAB CHEMISTRY METHOD 03/30/2024 10:33 PM [facility] Blood Venous blood specimen / Unknown Venipuncture / Unknown 03/30/2024 9:29 PM EST 03/30/2024 10:05 PM EST Leland Esteban MD LAB BLOOD ORDERABLES Final Res ult Performing Organization Address [facility]/ZIP Co de Phone Number [facility] [address] [place] [address], [place] [phone] * (ABNORMAL) Urinalysis with reflex microscopic (03/30/2024 4:22 PM EST) Pathologist [facility] Specific Sunshine Urine >1.045(H) 1.003 - 1.030 LAB URINALYSIS - AUTOMATED METHOD 03/30/2024 4:52 PM [facility] pH, Urine 5.5 5.0 - 8.0 pH LAB URINALYSIS - AUTOMATED METHOD 03/30/2024 4:52 PM [facility] Leukocytes, Urine Negative Negative LAB URINALYSIS - AUTOMATED METHOD 03/30/2024 4:52 PM [facility] Nitrite, Urine Negative Negative LAB URINALYSIS - AUTOMATED METHOD 03/30/2024 4:52 PM [facility] Protein, Urine Negative <=Trace mg/dL LAB URINALYSIS - AUTOMATED METHOD 03/30/2024 4:52 PM [facility] Glucose, Urine Negative Negative mg/dL LAB URINALYSIS - AUTOMATED METHOD 03/30/2024 4:52 PM EST [facility] Ketones, Urine Negative Negative mg/dL LAB URINALYSIS - AUTOMATED METHOD 03/30/2024 4:52 PM EST [facility] Urobilinogen , Urine 1.0 0.2 - 1.0 mg/dL LAB URINALYSIS - AUTOMATED METHOD 03/30/2024 4:52 PM EST [facility] Bilirubin, Urine Negative Negative LAB URINALYSIS - AUTOMATED METHOD 03/30/2024 4:52 PM EST [facility] Blood, Urine Negative Negative LAB URINALYSIS - AUTOMATED METHOD 03/30/2024 4:52 PM [facility] Urine Urine specimen obtained by clean catch procedure / Unknown Non-blood Collection / Unknown 03/30/2024 4:22 PM EST 03/30/2024 4:40 PM EST Tobin MAGUIRE LAB URINE ORDERABLES Angelique l Result [facility] [address] [place] [address], * Troponin I high sensitivity (03/30/2024 3:21 PM EST) Pathologist [facility] High Sensitivity Troponin I 9 <=79 ng/L LAB CHEMISTRY METHOD 03/30/2024 4:02 PM EST [facility] Blood Venous blood specimen / Unknown Venipuncture / Unknown 03/30/2024 3:21 PM EST 03/30/2024 3:35 PM EST Narrative [facility] - 03/30/2024 4:02 PM EST High levels of biotin in samples may falsely decrease hsTroponin values. ??Use caution when interpreting hsTroponin results in patients taking biotin who exhibit renal impairment (eGFR <60) or in patients taking more than 20 mg/day of biotin. Tobin MAGUIRE LAB BLOOD ORDERABLES Angelique l Result Performing Organization Address [facility]/ZIP Co de Phone Number [facility] [address] [place] [address], * B-type natriuretic peptide (03/30/2024 3:21 PM EST) BNP 75 <=100 pcg/mL LAB CHEMISTRY METHOD 03/30/2024 4:09 PM EST [facility] Blood Venous blood specimen / Unknown Venipuncture / Unknown 03/30/2024 3:21 PM EST 03/30/2024 3:35 PM EST Tobin MAGUIRE LAB BLOOD ORDERABLES Angelique l Result Performing Organization Address [facility] Co de Phone Number [facility] [address] [place] [address], * CT Angio Chest wo and/or w [...] Signed Date: 03/30/2024 14:53 ET Workstation ID: [id number] Transcribed By: Self Edit Transcribed Date: 03/30/2024 [...] Signed Date: 03/30/2024 14:53 ET Workstation ID: [id number] Transcribed By: Self Edit Transcribed Date: 03/30/2024 14:48 ET Tobin MAGUIRE IMG CT PROCEDURES Final R esult * Respiratory virus panel molecular study (03/30/2024 11:59 AM EST) Adenovirus Detection by PCR Not Detected Not Detected LAB MICROBIOLOGY METHOD 03/30/2024 1:28 PM EST [facility] Influenza A PCR Not Detected Not Detected LAB MICROBIOLOGY METHOD 03/30/2024 1:28 PM EST [facility] Influenza B PCR Not Detected Not Detected LAB MICROBIOLOGY METHOD 03/30/2024 1:28 PM [facility] Coronavirus 229E Not Detected Not Detected LAB MICROBIOLOGY METHOD 03/30/2024 1:28 PM [facility] Coronavirus HKU1 Not Detected Not Detected LAB MICROBIOLOGY METHOD 03/30/2024 1:28 PM [facility] Coronavirus OC43 Not Detected Not Detected LAB MICROBIOLOGY METHOD 03/30/2024 1:28 PM [facility] Coronavirus NL63 Not Detected Not Detected LAB MICROBIOLOGY METHOD 03/30/2024 1:28 PM [facility] Parainfluenza Virus 1 Not Detected Not Detected LAB MICROBIOLOGY METHOD 03/30/2024 1:28 PM [facility] Parainfluenza Virus 2 Not Detected Not Detected LAB MICROBIOLOGY METHOD 03/30/2024 1:28 PM [facility] Parainfluenza Virus 3 Not Detected Not Detected LAB MICROBIOLOGY METHOD 03/30/2024 1:28 PM [facility] Parainfluenza Virus 4 Not Detected Not Detected LAB MICROBIOLOGY METHOD 03/30/2024 1:28 PM [facility] RSV PCR Not Detected Not Detected LAB MICROBIOLOGY METHOD 03/30/2024 1:28 PM [facility] Human Metapneumovirus A and B Not Detected Not Detected LAB MICROBIOLOGY METHOD 03/30/2024 1:28 PM [facility] Rhinovirus/Entero virus Not Detected Not Detected LAB MICROBIOLOGY METHOD 03/30/2024 1:28 PM [facility] Bordetella pertussis Not Detected Not Detected LAB MICROBIOLOGY METHOD 03/30/2024 1:28 PM [facility] Bordetella parapertussis Not Detected Not Detected LAB MICROBIOLOGY METHOD 03/30/2024 1:28 PM [facility] Mycoplasma pneumo by PCR Not Detected Not Detected LAB MICROBIOLOGY METHOD 03/30/2024 1:28 PM [facility] Chlamydia pneumoniae Not Detected Not Detected LAB MICROBIOLOGY METHOD 03/30/2024 1:28 PM EST [facility] SARS COV-2 Not Detected Not Detected LAB MICROBIOLOGY METHOD 03/30/2024 1:28 PM EST [facility] Swab Both anterior nares / Unknown Non-blood Collection / Unknown 03/30/2024 11:59 AM EST 03/30/2024 12:10 PM EST Narrative [facility] - 03/30/2024 1:28 PM EST Testing was performed using the Inveni Respiratory Pathogen PCR Assay. All results must [...] L ORDERABLES Final Result Performing Organization Address [facility] Co de Phone Number [facility] [address] [place] [address], [place] [phone] * ECG 12 lead (03/30/2024 9:24 AM EST) Ventricular Rate ECG 121 BPM GEMUSE Atrial Rate 121 BPM GEMUSE P-R Interval 162 ms GEMUSE QRS Duration 82 ms GEMUSE Q-T Interval 320 ms GEMUSE QTc 454 ms GEMUSE P Wave [place] 43 degrees GEMUSE R [place] 8 degrees GEMUSE T [place] 42 degrees GEMUSE ECG Interpretation Sinus tachycardia When compared with ECG of 18-MAR-2023 20:07, Nonspecific T wave abnormality no longer evident in Lateral leads Confirmed by DEEPA BARNES ([id number]) on 03/31/2024 5:16:49 AM GEMUSE 03/30/2024 9:24 AM EST 03/31/2024 5:16 AM EST Tobin MAGUIRE ECG ORDERABLES Final Res ult Performing Organization Address City/[facility]/ZIP Co de Phone Number GEMUSE * (ABNORMAL) Thyroid stimulating hormone with reflex to free t4 and free t3 (TSH Reflex) (03/30/2024 8:38 AM EST) TSH 4.06(H) 0.40 - 4.00 mcIU/mL LAB CHEMISTRY METHOD 03/30/2024 8:27 PM EST [facility] Blood Venous blood specimen / Unknown Venipuncture / Unknown 03/30/2024 8:38 AM EST 03/30/2024 8:46 AM EST Bozena MAGUIRE LAB BLOOD ORDERABLES F inal Result Performing Organization Address City/[facility]/ZIP Co de Phone Number [facility] [address] [place] [address], [place] [phone] * Free thyroxine with reflex to free triiodothyronine (03/30/2024 8:38 AM EST) Free T4 1.20 0.70 - 1.80 ng/dL LAB CHEMISTRY METHOD 03/30/2024 9:00 PM EST [facility] Blood Venous blood specimen / Unknown Venipuncture / Unknown 03/30/2024 8:38 AM EST 03/30/2024 8:46 AM EST Bozena MAGUIRE LAB BLOOD ORDERABLES F inal Result Performing Organization Address City/[facility]/ZIP Co de Phone Number [facility] [address] [place] [address], [place] [phone] * Triiodothyronine free (03/30/2024 8:38 AM EST) T3, Free 301 230 - 420 pcg/dL LAB CHEMISTRY METHOD 03/30/2024 9:27 PM EST [facility] Blood Venous blood specimen / Unknown Venipuncture / Unknown 03/30/2024 8:38 AM EST 03/30/2024 8:46 AM EST us Bozena MAGUIRE LAB BLOOD ORDERABLES F inal Result Performing Organization Address [facility]/ZIP Co de Phone Number [facility] [address] [place] [address], [place] [phone] * Lipase (03/30/2024 8:38 AM EST) Lipase 56 13 - 75 unit/L LAB CHEMISTRY METHOD 03/30/2024 9:20 AM EST [facility] Blood Venous blood specimen / Unknown Venipuncture / Unknown 03/30/2024 8:38 AM EST 03/30/2024 8:46 AM EST Jason Griffin DO LAB BLOOD ORDERABLES Final Res ult Performing Organization Address [facility] de Phone Number [facility] [address] [place] [address], [place] [phone] * ECG-Annotated (03/30/2024) us Provider Onbase MD ECG ORDERABLES Final Result from Last 3 Months Additional Health Concerns Infection Onset Date Last Indicated Norovirus 03/31/2024 03/31/2024 Insurance MEDICARE MEDICAID - [place] [facility] Advance Directives * Full Code - Default [...] currently active code status orders. Care Teams Shank Maker Relationship Specialty Start Date End Date Raji Amanda MD [address] [place] [address] [place] [id number] PCP - General Internal Medicine 03/30/24
--- OUTSIDE RECORDS SUMMARY | 2024-04-24 18:00 | XMS_ITS | Encounter Summary ---
Author Organization [facility] Address [address] [place] [address] Care Team Providers Care Gamemaster Name Role Phone Raji Amanda MD Primary Care Provider [phone] Reason for Referral * Imaging (Routine) - Authorized Specialty Diagnoses / Procedures Referred By Joey mancini Referred To Contact Radiology Diagnoses Lung nodule seen on imaging study Procedures CT Chest wo Contrast Mansi Sheriff PA [address] [place] [address] Phone: tel: fax: [address] [address] Phone: tel: Referral ID Status Reason Start Date Expiration Date V isits Requested Visits Authorized [id number] Authorized 03/31/2024 03/31/2025 1 1 Reason for Visit * Reason Comments Vomiting * Auth/Cert (Routine) Specialty Diagnoses / Procedures Referred By Joey t Referred To Contact Diagnoses Acute respiratory distress Tachycardia Dyspnea, unspecified type Procedures [facility] IP/OBS CARE INITIAL MODERATE LEVEL PER DAY . Leland Esteban MD [address] [place] [address] Phone: tel: fax: [facility] B [address] [place] [address] Phone: tel: Referral ID Status Reason Start Date Expiration Date Visits Re quested Visits Authorized [id number] 1 1 Encounter Details Date Type Department Care Team (Late st Contact Info) Description 03/30/2024 8:24 AM EST - 03/31/2024 1:30 PM EST [facility] [address] [place] [phone] Leodan Snider MD [address] [place] [address] Leland Esteban MD [address] [place] [address] Taras Block MD [address] [place] [address] Acute respiratory distress (Primary Dx); Tachycardia; Dyspnea, [...] for your loved ones. For example, child care associate or elderly care for an older adult? [...] In what REGION should this be scheduled? [facility] [[id number]] In what Brenda LOCATION should this be scheduled? [facility] [[id number]] More than 30 minutes spent reviewing overnight [...] encounter Discharge Instructions * Discharge Instructions* TING Altamirano - 03/31/2024 9:20 AM EST Your GI [...] be sent through Care Everywhere. * Gastroenteritis (Amharic) documented in this encounter Medications at Time [...] infectious concerns): [] Yes / [x] No Waste Management Specialist: [x] Yes / [] No If YES, Cardiac Rhythm: [] NSR, [] SB, [x] ST, [] A-FIB, [] A-Flutter, [] Pacemaker, [] 1st Degree HB, [] 2nd Degree HB, [] 3rd Degree HB Reason for Waste Management Specialist: VS: Visit Vitals BP 105/73 Pulse 94 [...] PHYSICAL Please contact author [TING Lara] via Hal[employer]/GroupT[employer]. Patient: Gene Cordero Admission Date/Time: 03/30/2024 8:24 [...] CT Angio Chest wo and/or w Contrast [[id number]] Collected: 03/30/24 1437 Order Status: Completed Updated: [...] not require further follow- up per current Liene society recommendations in the absence of risk factors for lung cancer. If there are lung cancer risk factors, recommendations are for an optional follow-up CT in one year. -------- FINAL REPORT -------- Dictated By: Michael Espinoza Dictated Date: 03/30/2024 14:37 ET Assigned Physician: Michael Espinoza Reviewed and Electronically Signed By: Michael Espinoza Signed Date: 03/30/2024 14:53 ET Workstation ID: [id number] Transcribed By: Self Edit Transcribed Date: 03/30/2024 [...] mg daily FULL CODE HCP: Dolores, partner [phone] PPX: Pneumoboots Case and plan discussed with: Dr. sEteban 75 minutes or greater was spent on performing a medically appropriate history and physical examination, review of laboratory and radiology data requiring a high level of medical decision making. Cosigned by Leland Esteban MD at 03/31/2024 6:38 AM EST Associated attestation - Leland Esteban MD - 03/31/2024 6:38 AM EST I have personally seen and examined the patient with the resident/PA/BOOM OPERATOR and terrazas elements of all parts of the encounter were performed by me. Patient was reassessed on more than one occasion when required. I reviewed the interval history, interpreted all available radiographic, laboratory and physiological data at the time of service. I agree with the assessment and plan as documented by the resident/PA/BOOM OPERATOR with additions. 78-year-old male coming into the [...] reviewed in detail. Case was discussed with furniture manager as well. I spent greater than 80 minutes caring for this patient today with greater than 50% of the time spent in direct [id number] care/counseling/coordination with staff services manager, consultants, and reviewing patient chart. Leland Esteban [...] Comprehensive metabolic panel (03/31/2024 6:05 AM EST) [facility] Sodium 137 133 - 145 mmol/L LAB [...] LAB CHEMISTRY METHOD 03/31/2024 8:23 AM EST [facility] Total Protein 5.7(L) 6.0 - [...] ORDERABLES Final Result [facility] [address] [place] [address], * (ABNORMAL) CBC auto differential (03/31/2024 6:05 [...] LAB Neutrophils Absolute 3.20 1.50 - 7.00 [facility] HEMETOLOGY METHOD 03/31/2024 8:24 AM EST [facility] Lymphocytes Absolute 0.40(L) 1.00 - 5.00 [facility] HEMETOLOGY METHOD 03/31/2024 8:24 AM EST [facility] Monocytes Absolute 0.42 0.20 - 1.00 [facility] HEMETOLOGY METHOD 03/31/2024 8:24 AM EST [facility] Eosinophils Absolute 0.00 0.00 - 0.50 [facility] HEMETOLOGY METHOD 03/31/2024 8:24 AM EST [facility] Basophils Absolute 0.01 0.00 - 0.20 [facility] HEMETOLOGY METHOD 03/31/2024 8:24 AM EST [facility] Immature Granulocytes Absolute 0.01 0.00 - 0.03 [facility] HEMETOLOGY METHOD 03/31/2024 8:24 AM EST [facility] Blood Venous blood specimen / Unknown Venipuncture / Unknown 03/31/2024 6:05 AM EST 03/31/2024 7:14 AM EST Leland Esteban MD LAB BLOOD ORDERABLES Final Res ult [facility] [address] [place] [address], * (ABNORMAL) Magnesium (03/31/2024 6:05 AM EST) Magnesium 1.7(L) 1.9 - 2.6 mg/dL LAB CHEMISTRY METHOD 03/31/2024 7:52 AM EST [facility] Blood Venous blood specimen / Unknown Venipuncture / Unknown 03/31/2024 6:05 AM EST 03/31/2024 7:14 AM EST us Leland Esteban MD LAB BLOOD ORDERABLES Final Res ult [facility] [address] [place] [address], [place] [phone] * (ABNORMAL) Basic metabolic panel (03/31/2024 6:05 [...] 03/31/2024 7:52 AM EST [facility] Blood Venous blood specimen / Unknown Venipuncture / Unknown 03/31/2024 6:05 AM EST 03/31/2024 7:14 AM EST us Leland Esteban MD LAB BLOOD ORDERABLES Final Res ult [facility] [address] [place] [address], [place] [phone] * (ABNORMAL) Gastrointestinal pathogens molecular study (03/31/2024 [...] 03/31/2024 12:39 AM EST 03/31/2024 12:48 AM [facility] - 03/31/2024 2:10 AM [...] MICROBIOLOGY - GENE RAL ORDERABLES Final Result [facility] [address] [place] [address], * CT Abdomen Pelvis w Contrast (03/30/2024 [...] ERABLES Final Result [facility] [address] [place] [address], [place] [phone] * Culture blood (03/30/2024 9:30 PM EST) Culture, Blood No growth at 5 days 04/04/2024 11:01 PM EST [facility] Blood Venous blood specimen / Unknown Venipuncture / Unknown 03/30/2024 9:30 PM EST 03/30/2024 10:06 PM EST Leland Esteban MD LAB MICROBIOLOGY - GENERAL ORD ERABLES Final Result [facility] [address] [place] [address], [place] [phone] * Lactate, with reflex (03/30/2024 9:29 PM EST) [facility] LACTIC ACID 1.8 0.4 - 2.0 mmol/L LAB CHEMISTRY METHOD 03/30/2024 10:33 PM EST [facility] Blood Venous blood specimen / Unknown Venipuncture / Unknown 03/30/2024 9:29 PM EST 03/30/2024 10:05 PM EST us Leland Esteban MD LAB BLOOD ORDERABLES Final Res ult [facility] [address] [place] [address], [place] [phone] * (ABNORMAL) Urinalysis with reflex microscopic (03/30/2024 4:22 PM EST) [facility] Specific [place] Urine >1.045(H) 1.003 - 1.030 LAB URINALYSIS [...] ORDERABLES Angelique l Result Performing Organization Address [facility]/ZIP Co de Phone Number [facility] [address] [place] [address], [place] [phone] * B-type natriuretic peptide (03/30/2024 3:21 PM EST) [facility] BNP 75 <=100 pcg/mL LAB CHEMISTRY METHOD 03/30/2024 4:09 PM [facility] Blood Venous blood specimen / Unknown Venipuncture / Unknown 03/30/2024 3:21 PM EST 03/30/2024 3:35 PM EST Tobin MAGUIRE LAB BLOOD ORDERABLES Angelique l Result [facility] [address] [place] [address], [place] [phone] * Troponin I high sensitivity (03/30/2024 3:21 PM EST) [facility] High Sensitivity Troponin I 9 <=79 ng/L LAB CHEMISTRY METHOD 03/30/2024 4:02 PM EST [facility] Blood Venous blood specimen / Unknown Venipuncture / Unknown 03/30/2024 3:21 PM EST 03/30/2024 3:35 PM EST [facility]ative [facility] [place] [facility] - 03/30/2024 4:02 PM EST High levels of biotin in samples may falsely decrease hsTroponin values. ??Use caution when interpreting hsTroponin results in patients taking biotin who exhibit renal impairment (eGFR <60) or in patients taking more than 20 mg/day of biotin. us Tobin MAGUIRE LAB BLOOD ORDERABLES Angelique pichardo Result [facility] [address] [place] [address], * CT Angio Chest wo and/or w [...] Signed Date: 03/30/2024 14:53 ET Workstation ID: [id number] Transcribed By: Self Edit Transcribed Date: 03/30/2024 [...] Signed Date: 03/30/2024 14:53 ET Workstation ID: [id number] Transcribed By: Self Edit Transcribed Date: 03/30/2024 14:48 ET Tobin MAGUIRE IMG CT PROCEDURES Final R esult * Respiratory virus panel molecular study (03/30/2024 11:59 AM EST) Pathologist [facility] Adenovirus Detection by PCR Not Detected Not [...] LAB MICROBIOLOGY METHOD 03/30/2024 1:28 PM EST [facility] Swab Both anterior nares / Unknown Non-blood Collection / Unknown 03/30/2024 11:59 AM EST 03/30/2024 12:10 PM EST Narrative [facility] - 03/30/2024 1:28 PM EST Testing was performed using the Outline Respiratory Pathogen PCR Assay. All results must [...] L ORDERABLES Final Result Performing Organization Address [facility]/ZIP Co de Phone Number [facility] [address] [place] [address], [place] [phone] * ECG 12 lead (03/30/2024 9:24 AM EST) Ventricular Rate ECG 121 BPM GEMUSE Atrial Rate 121 BPM GEMUSE P-R Interval 162 ms GEMUSE QRS Duration 82 ms GEMUSE Q-T Interval 320 ms GEMUSE QTc 454 ms GEMUSE P Wave [place] 43 degrees GEMUSE R [place] 8 degrees GEMUSE T [place] 42 degrees GEMUSE ECG Interpretation Sinus tachycardia [...] ORDERABLES F inal Result Performing Organization Address City/[facility]/ZIP Co de Phone Number [facility] [address] [place] [address], [place] [phone] * Free thyroxine with reflex to free triiodothyronine (03/30/2024 8:38 AM EST) Free T4 1.20 0.70 - 1.80 ng/dL LAB CHEMISTRY METHOD 03/30/2024 9:00 PM EST [facility] Blood Venous blood specimen / Unknown Venipuncture / Unknown 03/30/2024 8:38 AM EST 03/30/2024 8:46 AM EST us Bozena MAGUIRE LAB BLOOD ORDERABLES F inal Result Performing Organization Address [facility] de Phone Number [facility] [address] [place] [address], [place] [phone] * (ABNORMAL) Thyroid stimulating hormone with reflex to free t4 and free t3 (TSH Reflex) (03/30/2024 8:38 AM EST) TSH 4.06(H) 0.40 - 4.00 mcIU/mL LAB CHEMISTRY METHOD 03/30/2024 8:27 PM EST [facility] Blood Venous blood specimen / Unknown Venipuncture / Unknown 03/30/2024 8:38 AM EST 03/30/2024 8:46 AM EST Bozena MAGUIRE LAB BLOOD ORDERABLES F inal Result [facility] [address] [place] [address], * (ABNORMAL) CBC auto differential (03/30/2024 8:38 [...] LAB HEMETOLOGY METHOD 03/30/2024 9:01 AM EST [facility] Blood Venous blood specimen / Unknown Venipuncture / Unknown 03/30/2024 8:38 AM EST 03/30/2024 8:47 AM EST Jason Griffin DO LAB BLOOD ORDERABLES Final Res ult Performing Organization Address [facility]/ZIP Co de Phone Number [facility] [address] [place] [address], [place] [phone] * Lipase (03/30/2024 8:38 AM EST) Pathologist [facility] Lipase 56 13 - 75 unit/L LAB CHEMISTRY METHOD 03/30/2024 9:20 AM EST [facility] Blood Venous blood specimen / Unknown Venipuncture / Unknown 03/30/2024 8:38 AM EST 03/30/2024 8:46 AM EST Jason Griffin DO LAB BLOOD ORDERABLES Final Res ult Performing Organization Address [facility]/ZIP Co de Phone Number [facility] [address] [place] [address], [place] [phone] * (ABNORMAL) Comprehensive metabolic panel (03/30/2024 8:38 AM EST) Pathologist [facility] Sodium 140 133 - 145 mmol/L LAB CHEMISTRY METHOD 03/30/2024 9:20 AM EST [facility] Potassium 4.4 3.5 - 5.5 mmol/L LAB CHEMISTRY METHOD 03/30/2024 9:20 AM EST [facility] Comment:Hemolysis present Chloride 107 96 - 110 mmol/L LAB CHEMISTRY METHOD 03/30/2024 9:20 AM EST [facility] CO2 26 21 - 32 [...] DO LAB BLOOD ORDERABLES Final Res ult [facility] [address] [place] [address], * ECG-Annotated (03/30/2024) us Provider Onbase MD ECG ORDERABLES Final Result documented in this encounter Visit Diagnoses Diagnosis Tachycardia- Primary Unspecified tachycardia Acute respiratory distress Other pulmonary insufficiency, not elsewhere classified Tachycardia Unspecified tachycardia Dyspnea, unspecified type Lung nodule seen on imaging study Norovirus Intestinal infection, enteritis due to [place] virus documented in this encounter Admitting Diagnoses [...] documented as of this encounter Care Teams Gamemaster Relationship Specialty Start Date End Date Raji Amanda MD [address] [place] [address] PCP - General Internal Medicine 03/30/24 documented as of this encounter
--- OUTSIDE RECORDS SUMMARY | 2024-04-24 18:00 | XMS_ITS ---
Author Organization [facility] Address [address] [place] [address] Care Team Providers Care Dumper Operator Name Role Phone Raji Amanda MD Primary Care Provider Adam Moraes Unavailable [phone] ALLERGIES No Known Allergies REASON FOR VISIT Patient presents today for chronic hep b MEDICATIONS Medication SIG (Take, Route, Fr equency, Duration) Notes Start Date End Date Status Allopurinol 100 MG Oral for 90 Active Omeprazole 20 MG TAKE 1 CAPSULE BY MO [facility] EVERY DAY IN THE MORNING for [...] 07/03/2023 Encounters Encounter Location Date Provider Diagnosis [facility] [address] [place] [address] 07/03/2023 Adam Beebe Chronic viral hepati tis [...] (ICD-10 - B18.1) Continue the daily Entecavir watermelon inspector 07/03/2023 Other cirrhosis of liver (ICD-10 - [...] and without coma Continue the daily Entecavir fci Next Appt Details Follow Up: 01/2024, Reason: Provider Name:Adam Beebe , 02/11/2025 04:20:00 PM, [address], [address], [place], [address], Progress Notes * Examination Category Sub-Category Detail [...]
--- OUTSIDE RECORDS SUMMARY | 2024-04-24 18:00 | XMS_ITS ---
Care Plan - [facility] [place] Created on: April 24, 2024 Gene Cordero : 1945 Sex: Male Author Organization [facility] Address [address] [place] [phone] Phone Care Team Providers Care Grief Counselor Name Role Phone Troy Horta Primary Care Provider [phone] [facility] [place] Unavailable [phone]
== END 2024-04-24 15:25 | disposition home or self-care (01) ==
PROVIDERS: PCP Internal Medicine; Referring Provider Urology; Visit Provider Internal Medicine Nephrology
DX: N20.0 Calculus of kidney (principal)
CPT/HCPCS: 99204

== ENCOUNTER → 2024-04-24 14:38 | Outpatient (BNVA) | payer MEDICARE, SELFPAY | PROVIDERS: PCP Internal Medicine; Referring Provider Urology; Visit Provider Internal Medicine Nephrology | DX: N20.0 Calculus of kidney (principal) | CPT/HCPCS: 99202 ==

== ENCOUNTER 2024-06-02 13:58 | Outpatient (REF) | payer MEDICARE, SELFPAY ==
[2024-06-02 13:59] VITALS: BP 157/81; PULSE 93; RESP 18; O2SAT 96; BMI 34.6
--- OUTSIDE RECORDS SUMMARY | 2024-06-02 16:41 | XMS_ITS | Clinical Summary ---
Author Organization [facility] Address [address] [place] [address] Phone Care Team Providers Care Senior Group Manager Name Role Phone Troy Horta Group Primary Care Provider [phone] [facility] Unavailable [phone] Reason for Visit and Chief Complaint Established Patient Plan of Treatment 1. Continue OT/PT for right ankle. 2. Gait training with full weight right lower extremity. 3. Range of motion right ankle. 4. Activities of daily living. 5. Strengthening right ankle. 6. Return to office in 3 months for final visit and repeat x-ray right ankle - Last Documented On 07/02/2023 10:04AM ; [facility] Pending Tests Order Diagnosis Results Due Ordering Tarah pitt Follow Up - Appointment 3 Months Displ bi malleol fx r low leg, subs for clos fx w routn heal 07/02/23 Tavo Blanco MD Last Documented On 10:04AM ; [facility], Assessments Includes: Assessments from this encounter No Assessments Recorded Medical Equipment - Implanted Devices Includes: Current Devices No Medical Equipment Recorded Medications Includes: Medications discussed during this encounter and other current Medications Current Medications (continue as prescribed) Tylenol Oral Tablet 07/02/2023 Provider: Diagnosis: Last Documented On 8:15AM By Cam Levy ; [facility] Medications Administered Includes: Administered Medications from this encounter No Administered Medications Recorded Vital Signs Includes: Vital Signs from this encounter Vital Name 07/02/2023 08:13A Blood Pressure Sitting (mmHg) 121/72 Pulse Rate-Sitting (bpm) 116 Temp-Temporal 97.1 Weight (lb) 252 Oxygen Saturation (%) 95 Last Documented: On 07/02/2023 8:14AM ; [facility] Results Includes: Results discussed during this [...] Time Diagnosis Established Patient Tavo Blanco MD [facility] 07/02/19 24 8:20AM 8:27AM Insurance Includes: Active Insurance Policies Plan Name Member ID Group # Subscriber Relationship Effect yelena Dates 1 - Medicare Part B [facility] [id number] [facility] Self 2 - [employer] [id number] Gene Cordero Self 08/27/2015 - Unknown Clinical Notes Includes: Clinical Notes from this encounter * Progress note Date Encounter Last Documented by 07/02/2023 Established Patient Leandro espinoza on 07/02/2023; 10:04 AM, Tavo Blanco MD; [facility] Chief Complaint Closed displaced bimalleolar [...]
--- OUTSIDE RECORDS SUMMARY | 2024-06-02 16:41 | XMS_ITS | Patient Health Record ---
[facility] Address [address] [address] Care Team Providers Care Insurance Marketing Specialist Name Role Phone Raji Amanda MD Primary Care Provider Sha Caballero Unavailable [phone] Allergies No Known Allergies Reason For Referral [...] W/U Status Risk Notes Problem Tinea unguium ([id number]) Tinea unguium (B35.1) Active confirmed Vital Signs Height 6ft in 10/15/2023 Weight 248 lbs 10/15/2023 BMI 33.63 kg/m2 10/15/2023 Encounters Encounter Location Date Provider Diagnosis [facility] [address] [address] 10/15/2023 Sha Daugherty Tinea unguium B35.1 ; [...] [employer] [address] [facility] [place] [address] [id number] Gene Corrigan Self - patient is the insured [employer] [address] [place] [address] [id number] Gene Corrigan Self - patient is the insured Medical (General) History Medical History History ICD Code Gall bladder problems Hepatitis B Liver disease Measles Mumps Chicken pox Bone implants/screws Surgical History Surgery Date(Month/Year) left hip replacement 05/03/21 ankle surgery - Fracture ORIF, Right 04/27 024 vein surgery 05/2023 Hospitalization History Reason Date(Month/[place] [facility]2023 [facility], Broken ankle 04/2023, 05/2023
--- OUTSIDE RECORDS SUMMARY | 2024-06-02 16:42 | XMS_ITS | Clinical Summary ---
Author Organization [facility] Address [address] [place] [address] Phone Care Team Providers Care Crime Specialist Name Role Phone Troy Horta Group Primary Care Provider [phone] [facility] Unavailable [phone] Reason for Visit and Chief Complaint Post Op Visit/Follow Up Plan of Treatment Pending Tests Order Diagnosis Results Due Ordering P rovider Follow Up - Appointment 1 Month Pain in right ankle and joints of right foot 05/21/23 Jason Ramirez MD Last Documented On 4 9:48AM ; [facility] Assessments Includes: Assessments from this encounter No Assessments Recorded Medical Equipment - Implanted Devices Includes: Current Devices No Medical Equipment Recorded Medications Includes: Medications discussed during this encounter and other current Medications Current Medications (continue as prescribed) Tylenol Oral Tablet 07/02/2023 Provider: Diagnosis: Last Documented On 4 8:15AM By Cam Levy ; [facility] Medications Administered Includes: Administered Medications [...] Post Op Visit/Follow Up Jason Ramirez MD [facility], 05/21/19 24 9:20AM 9:43AM Insurance Includes: Active Insurance Policies Plan Name Member ID Group # Subscriber Relationship Effect yelena Dates 1 - Medicare Part B [facility] [id number] Gene Cordero Self 2 - [employer] [id number] Gene Cordero Self 08/27/2015 - Unknown Clinical Notes Includes: Clinical Notes from this encounter * Progress note Date Encounter Last Documented by 05/21/2023 Post Op Visit/Follow Up Last doc umented on 05/21/2023; 9:48 AM, Jason Ramirez MD; [facility] Plan StartCited - Pain in right [...]
--- OUTSIDE RECORDS SUMMARY | 2024-06-02 16:42 | XMS_ITS ---
Author Organization [facility] Address [address] [address] Care Team Providers Care Tie Tape Machine Operator Name Role Phone Raji Amanda MD Primary Care Provider Unavaila Sha Gaines Unavailable [phone] REASON FOR VISIT Ingrown nails Encounters Encounter Location Date Provider Diagnosis [facility] [address] [facility] [address] [place] [address] 02/05/2023 Sha Daugherty Plan Of Treatment No Information Progress Notes * Gene CORDERO ADOB:[birth year] (77 yo M)Acc No.[id number]:02/05/2023 Patient:?Gene Cordero :1945???Age:77 Y???Sex:Male Address:[address] [place] [address] [place] [address], * true * Date:? Generated for Printi ng/Famariellag/eTransmitting on:?06/02/2024 04:42 PM EDT
--- OUTSIDE RECORDS SUMMARY | 2024-06-02 16:42 | XMS_ITS | Patient Health Record ---
Author Organization [facility] Address [address] [place] [phone] Care Team Providers Care Emergency Department Director Name Role Phone Raji Amanda MD Primary Care Provider Unavaila Adam Paris Unavailable [phone] Allergies No Known Allergies Results Component Value Reference Range Notes Complete Blood Count Auto Di ff Reviewed date:02/22/2024 09:19:46 PM Interpretation: Performing Lab:[facility], [address] [place] [phone] Notes/Report: White Blood Count 4.5 4.8-10.8 X10*3/uL Red Blood Count 5.33 4.60-5.80 X10*6/uL Hemoglobin 15.0 14.0-18.0 g/dl Hematocrit 45.8 42.0-52.0 % Mean Corpuscular Volume 85.9 80.0-98.0 fL Mean Corpuscular Hemoglobin 28.1 27.0-33.0 pg Mean Corpuscular HGB Conc 32.8 31.0-36.0 g/dl Red Cell Distribution Width 14.4 11.0-16.0 % Platelet Count 89 160-400 X10*3/uL Mean Platelet Volume 11.8 9.4-12.4 fL Neutrophils Percent Auto 57.9 45-73 % Imm Gran Pct Auto 0.0 0.0-0.4 % Lymphocytes Percent Auto 29.5 20-40 % Monocytes Percent Auto 9.9 2-11 % Eosinophils Percent Auto 2.0 0-4 % Basophils Percent Auto 0.7 0-2 % NRBC Pct Auto 0.0 0.0-0.2 /100WBC Neutrophils Absolute Auto 2.6 2.0-8.3 x10*3/uL Imm Gran Abs Auto 0.00 0.00-0.03 X10*3/uL Lymphocytes Absolute Auto 1.3 1.2-4.9 X10*3/uL Monocytes Absolute Auto 0.5 0.1-1.2 X10*3/uL Eosinophils Absolute Auto 0.1 0.0-0.4 X10*3/uL Basophils Absolute Auto 0.0 0.0-0.2 X10*3/uL NRBC Abs Auto 0.000 0.0-0.012 X10*3/uL White Blood Count 4.5 4.8-10.8 X10*3/uL Red Blood Count 5.33 4.60-5.80 X10*6/uL Hemoglobin 15.0 14.0-18.0 g/dl Hematocrit 45.8 42.0-52.0 % Mean Corpuscular Volume 85.9 80.0-98.0 fL Mean Corpuscular Hemoglobin 28.1 27.0-33.0 pg Mean Corpuscular HGB Conc 32.8 31.0-36.0 g/dl Red Cell Distribution Width 14.4 11.0-16.0 % Platelet Count 89 160-400 X10*3/uL Mean Platelet Volume 11.8 9.4-12.4 fL Neutrophils Percent Auto 57.9 45-73 % Imm Gran Pct Auto 0.0 0.0-0.4 % Lymphocytes Percent Auto 29.5 20-40 % Monocytes Percent Auto 9.9 2-11 % Eosinophils Percent Auto 2.0 0-4 % Basophils Percent Auto 0.7 0-2 % NRBC Pct Auto 0.0 0.0-0.2 /100WBC Neutrophils Absolute Auto 2.6 2.0-8.3 x10*3/uL Imm Gran Abs Auto 0.00 0.00-0.03 X10*3/uL Lymphocytes Absolute Auto 1.3 1.2-4.9 X10*3/uL Monocytes Absolute Auto 0.5 0.1-1.2 X10*3/uL Eosinophils Absolute Auto 0.1 0.0-0.4 X10*3/uL Basophils Absolute Auto 0.0 0.0-0.2 X10*3/uL NRBC Abs Auto 0.000 0.0-0.012 X10*3/uL CORRECTED REPORT CORRECTED REPORT Prothrombin Time INR Reviewed date:02/22/2024 09:19:05 PM Interpretation: Performing Lab:[address] [phone] Notes/Report: Prothrombin Time 11.4 10.9-12.4 SEC INTERNATIONAL NORM RATIO 1.0 0.9-1.1 INTERNATIONAL [...] valves: 2.5 - 3.5 Liver Panel Reviewed date:02/21/2024 11:16:27 PM Interpretation: Performing Lab:[facility], [address] [place] [phone] Notes/Report: Bilirubin Total 1.5 0.0-1.0 mg/dL Bilirubin Direct 0.3 0.0-0.5 mg/dL Aspartate Amino Transferase 37 5-37 U/L Slight Hemolysis.Interpret result with caution. Alanine Aminotransferase 22 0-40 U/L Total Protein 7.5 6.5-8.0 g/dL Albumin Level 4.0 3.5-5.0 g/dL Alkaline Phosphatase 88 39-117 U/L Basic Metabolic Panel Reviewed date:02/22/2024 09:20:49 PM Interpretation: Performing Lab:[address] [phone] Notes/Report: Sodium 140 135-145 mmol/L Potassium 4.5 3.3-5.1 mmol/L Slight Hemolysis.Interpret result with caution. Chloride 109 96-108 mmol/L Carbon Dioxide 24 22-29 mmol/L Anion Gap 12 12-20 Blood Urea Nitrogen 21 9-16 mg/dL Creatinine 0.84 0.5-1.4 mg/dL Estimated Glomerular Filt Rate > 60 Chronic Kidney Disease: Estimated GFR < 60 mL/min/1.73m2 Severe Kidney Disease: Estimated GFR < 15 mL/min/1.73m2 Glucose Random 101 60-115 mg/dL Calcium 9.5 8.4-10.2 mg/dL Alpha Fetoprotein Reviewed date:03/02/2024 12:14:10 PM Interpretation: Performing Lab:[facility], [address] [place] [phone] Notes/Report: Alpha Fetoprotein 5.3 <6.1 ng/mL This test was performed using the Jessica Monterey chemiluminescent method. Values obtained from different assay methods cannot be used interchangeably. AFP levels, regardless of value, should not be interpreted as absolute evidence of the presence or absence of disease. THIS TEST WAS PERFORMED AT: [facility] [address] [place] [phone] DAVID ANN MD Liver Fibrosis Pnl Reviewed date:02/28/2024 04:39:23 PM Interpretation: Performing Lab:[address] [phone] Notes/Report: Liver Fibrosis Score 0.70 Liver Fibrosis Stage F3 Liver Fibrosis Interpretation SEE NOTE advanced fibrosis Fibro Test Score (f) Metavir Score [...] F4 (severe fibrosis) Nec Inflam Act Score 0.03 Nec Inflam Act Grade A0 Nec Inflam [...] a>0.62 and a<=1.00 : A3 (severe activity) DTP-Qhqbk-1-Macroglobul in 304 106-279 mg/dL FIB-Haptoglobin 84 43-212 mg/dL FIB-Apolipoprotein A1 174 94-176 mg/dL FIB-Total Bilirubin 1.2 0.2-1.2 mg/dL FIB-GGT 23 3-70 U/L FIB-ALT 8 9-46 U/L Reference ID [id number] Footnote SEE NOTE The reliability of results is dependent on compliance with the preanalytical and analytical conditions recommended by [employer]. The tests have to be deferred for: [...] The performance characteristics have been determined by [facility]. It has not been cleared or approved by the U.S. Food and Drug Administration. Performance characteristics refer to the analytical performance of the test. [employer], the associated logo, [employer] and all associated [employer] eric are the registered trademarks of [employer]. All third constitution party eric - (R) and (TM) - are the property of their respective owners. (C) 0603-0038 [employer]. All rights reserved. THIS TEST WAS PERFORMED AT: [employer] [address] [place] [address] BALBINA WATKINS MD,PHD,LATOSHA Hepatitis B Core Antibody Ig M Reviewed date:02/25/2024 06:56:12 PM Interpretation: Performing Lab:[address] [phone] Notes/Report: Hepatitis B Core Antibody IgM NON-REACTIVE NON-REACTIVE For additional information, please refer to http://[employer]ker.[employer]/faq/FA Q202 (This link is being provided for informational/ educational purposes only.) THIS TEST WAS PERFORMED AT: [facility] [address] [place] [phone] DAVID ANN MD Hepatitis BE Antibody Reviewed date:02/23/2024 07:49:47 PM Interpretation: Performing Lab:[address] [phone] Notes/Report: Hepatitis BE Antibody NON-REACTIVE NON-REACTIVE For additional information, please refer to http://[employer]ker.[employer]/faq/FA Q202 (This link is being provided for informational/ educational purposes only.) THIS TEST WAS PERFORMED AT: [facility] [address] [place] [phone] DAVID ANN MD Hepatitis BE Antigen Reviewed date:02/23/2024 07:50:02 PM Interpretation: Performing Lab:[address] [phone] Notes/Report: Hepatitis BE Antigen NON-REACTIVE NON-REACTIVE For additional information, please refer to http://[employer]ker.[employer]/faq/FA Q202 (This link is being provided for informational/ educational purposes only.) THIS TEST WAS PERFORMED AT: [facility] [address] [place] [phone] DAVID ANN MD Hepatitis B Viral DNA Qn Reviewed date:02/23/2024 07:50:21 PM Interpretation: Performing Lab:[facility] [address] [place] [phone] Notes/Report: Hepatitis B Viral DNA Qn - cp NOT DETECTED NOT DETECTED Log IU/mL This test was performed using Real-Time Polymerase Chain Reaction. Reportable Range: 10 IU/mL to 1,000,000,000 IU/mL. (1.00 Log IU/mL to 9.00 Log IU/mL). THIS TEST WAS PERFORMED AT: [facility] [address] [place] [phone] DAVID ANN MD Hepatitis B Viral DNA Qn-IU/mL NOT DETECTED NOT DETECTED IU/mL US abdomen comp w elastograp hy (Not yet reviewed by provider) Interpretation: Performing Lab: Notes/Report: [address] [address] Ultrasound Report Signed Patient: Adam Cordero MR#: [id number] : 1945 Acct:[id number] Age/Sex: 78 / M ADM Date: 02/21/24 Loc: HO.US Attending Dr: Adam Beebe MD Ordering Physician: Adam Beebe MD Date of Service: 02/21/24 Procedure(s): US abdomen comp w elastography Accession Number(s): [id number] cc: Raji Amanda MD; Adam Beebe MD EXAMINATION: US COMPLETE ABDOMEN WITH LIVER ELASTOGRAPHY CLINICAL INFORMATION: Chronic bilateral hepatitis COMPARISON: None available. TECHNIQUE: Real-time imaging of the abdominal viscera. Noninvasive ultrasound liver fibrosis assessment is performed using Naif ElastPQ point quantification shear wave elastography (pSWE) with a C5-2 MHz transducer. Multiple elastography samples are obtained. FINDINGS: PANCREAS: The visualized pancreatic head and body are normal in appearance. The remainder of the pancreas is obscured from visualization by the overlying bowel gas. ABDOMINAL AORTA: The proximal and mid abdominal aorta is of normal caliber. INFERIOR VENA CAVA: Visualized portions are normal. LIVER: The liver demonstrates normal size, contour with diffuse increased echogenicity. There are 2 anechoic cyst. Cysts in the right hepatic lobe measures 1.4 x 1.5 x 1.3 cm and left lower lobe measures 2.2 x 1.8 x 2.1 cm. No intrahepatic biliary duct dilatation. The right lobe measures 14.6 cm in length. The left lobe measures 13.2 cm in length. Portal flow is hepatopedal Shear wave liver elastography median stiffness is 1.08 m/s (reference: normal median stiffness is 1.3 m/s or less). IQR/median stiffness to assess sampling precision is 0.10 (reference: good quality data set is IQR/median stiffness of 0.15 or less). GALLBLADDER: There are echogenic gallstones measuring 2.1 x 1.1 x 1.9 cm. Gallbladder wall thickness measures 0.4 cm. No pericholecystic fluid collection. No tenderness in the right upper quadrant by ultrasound probe COMMON BILE DUCT: Normal in caliber measuring 0.4 cm in diameter. RIGHT KIDNEY: No hydronephrosis. No renal calculi or focal parenchymal lesions. There are multiple echogenic stones in lower pole. 1 stone measures 1.0 x 0.6 x 1.0 cm. 2. Stone measures 0.7 x 0.6 x 0.5 cm. 3. Mid to lower pole stone measuring 0.7 x 0.6 x 0.5 cm. LEFT KIDNEY: No hydronephrosis. No renal calculi or focal parenchymal lesions. The kidney measures 11.0 cm in maximum dimension. SPLEEN: Unremarkable. The spleen measures 11.2 cm in maximum dimension. FREE FLUID: None seen. US/US abdomen comp w elastography IMPRESSION: 1. Diffusely heterogeneous liver with 2 anechoic simple cysts. 2. Echogenic large gallstone measures 2.1 cm. Mild wall thickening seen. No tenderness in right upper quadrant by ultrasound probe 2. Liver elastography: Medial liver stiffness measures 1.08. This is high probability normal REFERENCE: Society of Radiologists in Ultrasound Liver Stiffness Thresholds (2020): LIVER STIFFNESS THRESHOLDS: *Liver Stiffness equal or less than 1.3 m/s: High probability of being normal. *Liver Stiffness less than 1.7 m/s: In the absence of other known clinical signs, rules out compensated advanced chronic liver disease. *Liver Stiffness 1.7-2.1 m/s: Suggestive of compensated advanced chronic liver disease but need further test for confirmation. *Liver Stiffness over 2.1 m/s: Rules in compensated advanced chronic liver disease. *Liver Stiffness over 2.4 m/s: Suggestive of clinically significant portal hypertension. QUALITY OF DATA SET: *IQR/Median value equal or less than 0.15 implies a quality data set. *IQR/Median value over 0.15 implies a poor quality data set. SIGNIFICANT CHANGE FROM PRIOR EXAM: Significant change if liver stiffness measurement is 10% or greater from prior exam. OTHER CONSIDERATIONS: The stage of liver fibrosis may be overestimated in the setting of acute hepatitis, liver inflammation, elevated liver function tests, hepatic vascular congestion, obstructive cholestasis, non-fasting state, and infiltrative diseases such as amyloidosis and lymphoma. In some patients with NAFLD, the liver stiffness thresholds for compensated advanced chronic liver disease may be lower. In causes other than viral hepatitis and NAFLD, liver stiffness thresholds are not well established. 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 TECHNIQUE: Real-time imaging of the abdominal viscera. Noninvasive ultrasound liver fibrosis assessment is performed using Naif ElastPQ point quantification shear wave elastography (pSWE) with a C5-2 MHz transducer. Multiple elastography samples are obtained. FINDINGS: PANCREAS: The visualized pancreatic head and body are normal in appearance. The remainder of the pancreas is obscured from visualization by the overlying bowel gas. ABDOMINAL AORTA: The proximal and mid abdominal aorta is of normal caliber. INFERIOR VENA CAVA: Visualized portions are normal. LIVER: The liver demonstrates normal size, contour with diffuse increased echogenicity. There are 2 anechoic cyst. Cysts in the right hepatic lobe measure s 1.4 x 1.5 x 1.3 cm and left lower lobe measures 2.2 x 1.8 x 2.1 cm. No intrahepatic biliary duct dilatation. The right lobe measures 14.6 cm in length. The left lobe measures 13.2 cm in length. Portal flow is hepatopedal Shear wave liver elastography median stiffness is 1.08 m/s (reference: normal median stiffness is 1.3 m/s or less). IQR/median stiffness to assess sampling precision is 0.10 (reference: good quality data se t is IQR/median stiffness of 0.15 or less). GALLBLADDER: There a re echogenic gallstones measuring 2.1 x 1.1 x 1.9 cm. Gallbladder wall thickness measures 0.4 cm. No pericholecystic fluid collection. No tenderness in the right upper quadrant by ultrasound probe COMMON BILE DUCT: Normal in caliber measuring 0.4 cm in diameter. RIGHT KIDNEY: No hydronephrosis. No renal calculi or focal parenchymal lesions. There are multiple echogenic stones in lower pole. 1 stone measures 1.0 x 0.6 x 1.0 cm. 2. Stone measures 0. 7 x 0.6 x 0.5 cm. 3. Mid to lower pole stone measuring 0.7 x 0.6 x 0.5 cm. LEFT KIDNEY: No hydronephrosis. No renal calculi or focal parenchymal lesions. The kidney measures 11.0 cm in maximum dimension. SPLEEN: Unremarkable . The spleen measures 11.2 cm in maximum dimension. FREE FLUID: None seen. US/US abdomen comp w elastography IMPRESSION: 1. Diffusely heterogeneous liver with 2 anechoic simple cysts. 2. Echogenic large gallstone measures 2.1 cm. Mild wall thickening seen. No tenderness in right upper quadrant by ultrasound probe 2. Liver elastograph y: Medial liver stiffness measures 1.08. This is high probability normal REFERENCE: Society of Radiologists in Ultrasound Liver Stiffness Thresholds (2020): LIVER STIFFNESS THRESHOLDS: *Liver Stiffness equ al or less than 1.3 m/s: High probability of being normal. *Liver Stiffness les s than 1.7 m/s: In the absence of other known clinical signs, rule s out compensated advanced chronic liver disease. *Liver Stiffness 1.7-2.1 m/s: Suggestive of compensated advanced chronic liver diseas e but need further test for confirmation. *Liver Stiffness ove r 2.1 m/s: Rules in compensated advanced chronic liver disease. *Liver Stiffness ove r 2.4 m/s: Suggestive of clinically significant portal hypertension. QUALITY OF DATA SET: *IQR/Median value equal or less than 0.15 implies a quality data set. *IQR/Median value ov er 0.15 implies a poor quality data set. SIGNIFICANT CHANGE FROM PRIOR EXAM: Significant change i f liver stiffness measurement is 10% or greater from prior exam. OTHER CONSIDERATIONS: The stage of liver fibrosis may be overestimated in the setting of acute hepatitis, kana er inflammation, elevated liver function tests, hepatic vascular congestion, obstructive cholestasis, non-fasting state, and infiltrative diseases such as amyloidosis and lymphoma. In some patients with NAFLD, the liver stiffness thresholds for compensated advanced chronic liver disease may be lower. In causes other than viral hepatitis and NAFLD, liver stiffness thresholds are not well established. Electronically yakelin d by: Ravindra Robin MD 03/18/2024 04:43 PM [facility] Dictated By: Ravindra Robin MD Signed By: <Electronically signed by Ravindra Robin MD in OV> 03/18/24 1643 DD/ 0745 TD/TT: 02/21/24 0815 [employer] Operator: TODD SLIDE REVIEW Reviewed date:02/22/2024 09:19:59 PM Interpretation: Performing Lab:[facility], [address] [place] [phone] Notes/Report: SLIDE REVIEW VERIFIED Hepatitis B Profile Reviewed date:02/23/2024 07:49:32 PM Interpretation: Performing Lab:[facility], [address] [place] [phone] Notes/Report: Hepatitis B Surface Antibody NONREACTIVE Nonreactive Nonreactive: < 8.00 mIU/mL Hepatitis B Core Antibody Reactive Nonreactive Presumptive evidence of anti-HBc. HBSAG QUE[facility] CONF Reviewed date:02/25/2024 06:55:00 PM Interpretation: Performing Lab:[facility], [address] [place] [phone] Notes/Report: HBsAG REACTIVE (Abnormal) REFERENCE RANGE: NON-REACTIVE For additional information, please refer to http://education.[employer].com/faq/FA Q202 (This link is being provided for informational/ educational purposes only.) THIS TEST PERFORMED AT: [facility] [address] [place] [phone] DOWEL PIN MAN: DAVID ANN MD HBSAG Confirmation TNP Reason For Referral No Information Medications Medication SIG (Take, Route, Fr equency, Duration) Notes Start Date End Date Status Allopurinol 100 MG Oral for 90 Active Omeprazole 20 MG TAKE 1 CAPSULE BY MO UTH EVERY DAY IN THE MORNING for 90 Active Vitamin B12 Active Entecavir 0.5 MG TAKE 1 TABLET BY SINA TH 1 TIME A DAY ON AN EMPTY STOMACH. Orally Once a day for 30 days Active Immunizations Vaccine Route Administration Date Status Comme nts Influenza Unknown 10/27/2020 Administered Influenza Unknown 10/27/2021 Administered Social History Tobacco Use: Social History Observation Description Date Details (start date - stop date) Never Smoker NA - NA Tobacco Use/Smoking Question Answer Notes Patient is [...] Never (0 point) Points 0 Interpretation Negative Section Notes: Nonsmoker; no sig alcohol Denies any IVDA nor other drug use presently nor in the past Nonsmoker; no sig alcohol Denies any IVDA nor other drug use presently nor in the past Nonsmoker; no sig alcohol Denies any IVDA nor other drug use presently nor in the past Nonsmoker; no sig alcohol Denies any IVDA nor other drug use presently nor in the past Nonsmoker; no sig alcohol Denies any IVDA nor other drug use presently nor in the past Nonsmoker; no sig alcohol Denies any IVDA nor other drug use presently nor in the past Problems Problem Type SNOMED Code ICD Code Onset Dates Problem Status W/U Status Risk Notes Problem Other cirrhosis of liver (K74.69) Active confirmed Problem 605780140 History of colon polyps (Z86.010) Active confirmed Problem Cirrhotic (590905340) Cirrhosis (K74.60) Active confirmed Problem 96340262 Chronic viral hepatitis B without delta agent and without coma (B18.1) Active confirmed Problem 71918541 Chronic hepatiti s B (B18.1) Active confirmed Problem 45921238 Cirrhosis of kana er without ascites, unspecified hepatic cirrhosis type (K74.60) Active confirmed Problem Gastroesophageal reflux disease with esophagitis (disorder) (723229505) Gastroesophageal reflux disease with esophagitis, unspecified whether hemorrhage (K21.00) Active confirmed Problem 35178980 Chronic hepatiti s B no coma without hepatitis delta (B18.1) Active confirmed Vital Signs Blood pressure diastolic 00 mm Hg 02/06/2024 Height 72 in 02/06/2024 Blood pressure systolic 00 mm Hg 02/06/2024 Weight 252 lbs 02/06/2024 BMI 34.17 kg/m2 02/06/2024 Encounters Encounter Location Date Provider Diagnosis [facility] [address] [place] [phone] 07/03/2023 Adam Beebe Chronic viral hepati tis B without delta agent and without coma B18.1 ; Other cirrhosis of liver K74.69 ; Gastroesophageal reflux disease with esophagitis, unspecified whether hemorrhage K21.00 ; History of colon polyps Z86.010 and Cirrhosis of liver without ascites, unspecified hepatic cirrhosis type K74.60 [facility] [address] [place] [phone] 02/06/2024 Adam Beebe Chronic viral hepati tis B without delta agent and without coma B18.1 ; Gastroesophageal reflux disease with esophagitis, unspecified whether hemorrhage K21.00 and Other cirrhosis of liver K74.69 Assessments Encounter Date Diagnosis (ICD Code) Assessment Notes Treatment Notes Treatment Clinical Notes Section Notes 07/03/2023 Other cirrhosis of liver (ICD-10 - K74.69) Overall, Adam appears well. His Entecavir continues to be working very well based on his laboratories of nondetectable hepatitis B viral DNA levels and stable LFTs. He does not show any signs of progressive nor decompensating liver disease. I did advise him to continue his current medical regimen on a long-term basis for the hepatitis B infection. Given his recent CT scan and laboratories from early this year I don't think he needs any current laboratory testing or imaging studies. I will plan to see him at the end of this year at which time we could then repeat his abdominal ultrasound and laboratories again. We did mention the possibility of another screening colonoscopy but given his age of 77 I think would be worthwhile to hold off on that for the time being. Adam was comfortable with this plan. Thank you again for allowing me to proceed in Adam's care. I shall continue to keep you advised of this progress. 07/03/2023 Chronic viral hepatitis B without delta agent and without coma (ICD-10 - B18.1) Continue the daily Entecavir assisted Overall, Adam appears well. His Entecavir continues to be working very well based on his laboratories of nondetectable hepatitis B viral DNA levels and stable LFTs. He does not show any signs of progressive nor decompensating liver disease. I did advise him to continue his current medical regimen on a long-term basis for the hepatitis B infection. Given his recent CT scan and laboratories from early this year I don't think he needs any current laboratory testing or imaging studies. I will plan to see him at the end of this year at which time we could then repeat his abdominal ultrasound and laboratories again. We did mention the possibility of another screening colonoscopy but given his age of 77 I think would be worthwhile to hold off on that for the time being. Adam was comfortable with this plan. Thank you again for allowing me to proceed in Adam's care. I shall continue to keep you advised of this progress. 02/06/2024 Chronic viral hepatitis B without delta agent and without coma (ICD-10 - B18.1) Overall, Adam appears quite well. He continues to remain compliant with his daily Entecavir for his chronic hepatitis B infection and is not having any apparent adverse effects from the medication. His previous laboratories do indicate an excellent response to the medication in regard to having a nondetectable hepatitis B viral DNA level when last checked in February of this year and in June of 2022. He is not showing any signs of decompensation of his chronic liver disease at this time. I shall check a followup abdominal ultrasound along with the multiple laboratories outlined below, including an alpha-fetoprotein level and hepatitis B viral DNA level. Assuming his laboratories appear stable and he is doing well he will see me in one year for a followup office visit. I did remind him to definitely remain compliant with his daily Entecavir and to be sure never to stop it without notifying me first as that can lead to a rebound of his hepatitis B infection and potential severe worsening of his liver disease. I did advise Adam to contact me prior to the next office visit in one year if he has any problems or questions I can be of assistance with. Adam was comfortable with this plan. Thank you again for allowing me to participate in Adam's care. I shall continue to keep you advised of his progress. 02/06/2024 Gastroesophageal reflux disease with esophagitis, unspecified whether hemorrhage (ICD-10 - K21.00) Overall, Adam appears quite well. He continues to remain compliant with his daily Entecavir for his chronic hepatitis B infection and is not having any apparent adverse effects from the medication. His previous laboratories do indicate an excellent response to the medication in regard to having a nondetectable hepatitis B viral DNA level when last checked in February of this year and in June of 2022. He is not showing any signs of decompensation of his chronic liver disease at this time. I shall check a followup abdominal ultrasound along with the multiple laboratories outlined below, including an alpha-fetoprotein level and hepatitis B viral DNA level. Assuming his laboratories appear stable and he is doing well he will see me in one year for a followup office visit. I did remind him to definitely remain compliant with his daily Entecavir and to be sure never to stop it without notifying me first as that can lead to a rebound of his hepatitis B infection and potential severe worsening of his liver disease. I did advise Adam to contact me prior to the next office visit in one year if he has any problems or questions I can be of assistance with. Adam was comfortable with this plan. Thank you again for allowing me to participate in Adam's care. I shall continue to keep you advised of his progress. 07/03/2023 Gastroesophageal reflux disease with esophagitis, unspecified whether hemorrhage (ICD-10 - K21.00) Overall, Adam appears well. His Entecavir continues to be working very well based on his laboratories of nondetectable hepatitis B viral DNA levels and stable LFTs. He does not show any signs of progressive nor decompensating liver disease. I did advise him to continue his current medical regimen on a long-term basis for the hepatitis B infection. Given his recent CT scan and laboratories from early this year I don't think he needs any current laboratory testing or imaging studies. I will plan to see him at the end of this year at which time we could then repeat his abdominal ultrasound and laboratories again. We did mention the possibility of another screening colonoscopy but given his age of 77 I think would be worthwhile to hold off on that for the time being. Adam was comfortable with this plan. Thank you again for allowing me to proceed in Adam's care. I shall continue to keep you advised of this progress. 02/06/2024 Other cirrhosis of liver (ICD-10 - K74.69) Overall, Adam appears quite well. He continues to remain compliant with his daily Entecavir for his chronic hepatitis B infection and is not having any apparent adverse effects from the medication. His previous laboratories do indicate an excellent response to the medication in regard to having a nondetectable hepatitis B viral DNA level when last checked in February of this year and in June of 2022. He is not showing any signs of decompensation of his chronic liver disease at this time. I shall check a followup abdominal ultrasound along with the multiple laboratories outlined below, including an alpha-fetoprotein level and hepatitis B viral DNA level. Assuming his laboratories appear stable and he is doing well he will see me in one year for a followup office visit. I did remind him to definitely remain compliant with his daily Entecavir and to be sure never to stop it without notifying me first as that can lead to a rebound of his hepatitis B infection and potential severe worsening of his liver disease. I did advise Adam to contact me prior to the next office visit in one year if he has any problems or questions I can be of assistance with. Adam was comfortable with this plan. Thank you again for allowing me to participate in Adam's care. I shall continue to keep you advised of his progress. 07/03/2023 History of colon polyps (ICD-10 - Z86.010) Overall, Adam appears well. His Entecavir continues to be working very well based on his laboratories of nondetectable hepatitis B viral DNA levels and stable LFTs. He does not show any signs of progressive nor decompensating liver disease. I did advise him to continue his current medical regimen on a long-term basis for the hepatitis B infection. Given his recent CT scan and laboratories from early this year I don't think he needs any current laboratory testing or imaging studies. I will plan to see him at the end of this year at which time we could then repeat his abdominal ultrasound and laboratories again. We did mention the possibility of another screening colonoscopy but given his age of 77 I think would be worthwhile to hold off on that for the time being. Adam was comfortable with this plan. Thank you again for allowing me to proceed in Adam's care. I shall continue to keep you advised of this progress. 07/03/2023 Cirrhosis of liver without ascites, unspecified hepatic cirrhosis type (ICD-10 - K74.60) Overall, Adam appears well. His Entecavir continues to be working very well based on his laboratories of nondetectable hepatitis B viral DNA levels and stable LFTs. He does not show any signs of progressive nor decompensating liver disease. I did advise him to continue his current medical regimen on a long-term basis for the hepatitis B infection. Given his recent CT scan and laboratories from early this year I don't think he needs any current laboratory testing or imaging studies. I will plan to see him at the end of this year at which time we could then repeat his abdominal ultrasound and laboratories again. We did mention the possibility of another screening colonoscopy but given his age of 77 I think would be worthwhile to hold off on that for the time being. Adam was comfortable with this plan. Thank you again for allowing me to proceed in Adam's care. I shall continue to keep you advised of this progress. Plan Of Treatment Pending Test Test Name Order Date CHEM 7 PROFILE 11/01/2021 CHEM 7 PROFILE 03/15/2021 CHEM 7 PROFILE 05/27/2021 CHEM 7 PROFILE 01/27/2021 CHEM 7 PROFILE 02/06/2024 CHEM 7 PROFILE 05/02/2022 CHEM 7 PROFILE 02/21/2023 LIVER PROFILE 02/06/2024 LIVER PROFILE 05/02/2022 LIVER PROFILE 02/21/2023 LIVER PROFILE 12/30/2020 LIVER PROFILE 01/27/2021 LIVER PROFILE 11/01/2021 LIVER PROFILE 03/15/2021 LIVER PROFILE 09/19/2021 LIVER PROFILE 01/27/2021 IRON + IBC (FE) 12/30/2020 CBC w DIFF 01/27/2021 CBC w DIFF 02/06/2024 CBC w DIFF 05/02/2022 CBC w DIFF 02/21/2023 CBC w DIFF 01/27/2021 CBC w DIFF 11/01/2021 CBC w DIFF 03/15/2021 CBC w DIFF 12/30/2020 CBC w DIFF 05/27/2021 PROTHROMBIN TIME (PT, INR) 05/27/2021 PROTHROMBIN TIME (PT, INR) 01/27/2021 PROTHROMBIN TIME (PT, INR) 05/02/2022 PROTHROMBIN TIME (PT, INR) 01/27/2021 PROTHROMBIN TIME (PT, INR) 03/15/2021 PROTHROMBIN TIME (PT, INR) 12/30/2020 PARTIAL THROMBOPLASTIN TIME (PTT) 2020 HEPATITIS B SURFACE ANTIGEN 05/27/2021 ALPHA-FETOPROTEIN,TUMOR MARKER 1 ALPHA-FETOPROTEIN,TUMOR MARKER 4 ALPHA-FETOPROTEIN,TUMOR MARKER 3 ALPHA-FETOPROTEIN,TUMOR MARKER 3 ALPHA-FETOPROTEIN,TUMOR MARKER 2 HEPATITIS B E ANTIBODY 03/15/2021 HEPATITIS B E ANTIBODY 01/27/2021 HEPATITIS B E ANTIBODY 12/30/2020 HEPATITIS B E ANTIBODY 02/06/2024 HEPATITIS B E ANTIBODY 02/21/2023 HEPATITIS B E ANTIBODY 05/02/2022 HEPATITIS B E ANTIGEN 02/21/2023 HEPATITIS B E ANTIGEN 05/02/2022 HEPATITIS B E ANTIGEN 03/15/2021 HEPATITIS B E ANTIGEN 01/27/2021 HEPATITIS B E ANTIGEN 12/30/2020 HEPATITIS B E ANTIGEN 02/06/2024 HEPATITIS B VIRAL DNA QUANT 05/02/2022 HEPATITIS B GENOTYPE 01/27/2021 FLUOR. ANTINUCLEAR AB SCREEN (LALITA) 05/2020 US ABDOMEN COMP WITH ELASTOGRAPHY 2020 US ABDOMEN COMP WITH ELASTOGRAPHY 2021 Prothrombin Time INR 02/06/2024 Prothrombin Time INR 11/01/2021 Prothrombin Time INR 02/21/2023 Ferritin 12/30/2020 Liver Fibrosis Pnl 02/06/2024 Liver Fibrosis Pnl 11/01/2021 Liver Fibrosis Pnl 02/21/2023 Hepatitis B Surface Antibody 02/21/2023 Hepatitis BE Antibody 05/27/2021 Hepatitis BE Antigen 05/27/2021 Hepatitis B Viral DNA Qn 03/15/2021 Hepatitis B Viral DNA Qn 02/06/2024 Hepatitis B Viral DNA Qn 11/01/2021 Hepatitis B Viral DNA Qn 02/21/2023 Hepatitis B Viral DNA Qn 05/27/2021 Hepatitis B Viral DNA Qn 01/27/2021 Hepatitis Delta Antibody 01/27/2021 US abdomen comp w elastography 3 US abdomen comp w elastography 3 US abdomen comp w elastography 4 US abdomen comp w elastography 4 Hepatitis B Profile 02/06/2024 HIV Ab/Ag 01/27/2021 Hepatitis B Surface Antigen 02/21/2023 Future Test Test Name Order Date UPPER GI ENDOSCOPY 01/27/2021 Next Appt Details Provider Name:Adam Beebe , 02/11/2025 04:20:00 PM, [address] [place] [address], [address], [place], [address], Insurance Providers Payer Name Payer Address Payer Phone Subscriber Number Group Number Insured Name Patient Relationship to Insured Coverage Start Date Coverage End Date MEDICARE OF [place] [address] [facility] [address] [phone] [id number] [facility] ADAM Garvey Self - patient is the insured MEDEX ATTN CLAIMS [address] [place] [address] [id number] JONATHANALFREDMELONIERichard ADAM Garvey Self - patient is the insured Medical (General) History Medical History History ICD Code Denies TX,DM,CVA,Lung disease,renal dise ase Kidney stones removed 12/2020-Dr. Soliz. Had an ESWL in 09/2021 Sleep apnea-uses CPAP. Arthritis in left hip. Denies TX,DM,CVA,Lung disease,renal dise ase. 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 Asymptomatic gallstones--peterson loving is aware and this was reviewed again at the 04/2022 OV Colonoscopies at [facility] with removal of polyps-most recent one was in 2018. Started the Baraclude(Enteca vir) for the Hep B in 01/2021 with marked decrease in the Heb Viral DNA in 04/2021. EGD 01/2021 was negative for varices; it did show a small hiatal hernia, some changes of reflux esophagitis and gastritis. Broken ankle right 02/2023 Kidney stones 05/2023 Surgical History Surgery Date(Month/Year) Back surgery 04/2020 sciatic nerve Left hip replacement 04/[address] Norm chin 3 kidney stones Broken right ankle Dec 2023 cateracts
--- OUTSIDE RECORDS SUMMARY | 2024-06-02 16:42 | XMS_ITS | Clinical Summary ---
Author Organization [facility] Address [address] [place] [address] Phone Care Team Providers Care Warehouse Shipping Clerk Name Role Phone [employer] Primary Care Provider [phone] [facility] Un[facility] [phone] Reason for Visit and Chief Complaint Post [...] Documented On 8:15AM By Cam Levy ; [facility] Medications Administered Includes: Administered Medications [...] Post Op Visit/Follow Up Tobin Hui MD [facility] 04/19/19 24 9:20AM 9:58AM Insurance Includes: Active Insurance Policies Plan Name Member ID Group # Subscriber Relationship Effect yelena Dates 1 - Medicare Part B of [place] [id number] Gene Cordero Self 2 - [employer] [id number] Gene Cordero Self 08/27/2015 - Unknown Clinical Notes Includes: Clinical Notes from this encounter * Progress note Date Encounter Last Documented by 04/19/2023 Post Op Visit/Follow Up Last doc umented on 04/19/2023; 9:59 AM, Tobin Hui MD; [facility] [place], Chief Complaint CC: Right ankle bimalleolar fracture [...]
--- OUTSIDE RECORDS SUMMARY | 2024-06-02 16:42 | XMS_ITS ---
Author Organization [facility] m[facility] Address [address] [facility] [place] [address] Care Team Providers Care Guard Captain Name Role Phone Raji Amanda MD Primary Care Provider Unavaila Sha Gaines Unavailable [phone] Allergies No Known Allergies REASON FOR VISIT [...] W/U Status Risk Notes Problem Tinea unguium ([id number]) Tinea unguium (B35.1) Active confirmed Vital Signs Height 6ft in 02/22/2023 Weight 261 lbs 02/22/2023 BMI 35.39 kg/m2 02/22/2023 Encounters Encounter Location Date Provider [facility] [address] [place] [phone] 02/22/2023 Sha Daugherty Tinea unguium B35.1 ; [...] * Gene CORDERO ADOB:[birth year] (77 yo M)Acc No.[id number]:02/22/2023 Progress Note Patient:?Gene Cordero A Provider:?Sha Daugherty DPM :1945???Age:77 Y???Sex:Male Sanjeev e:02/22/2023 Address:[address] [place] [id number] Pcp:Raji Amanda MD Subjective: * Chief Complaints: [...] Daugherty DPM Date:?2022 Generated for Lauri castillo/Marya/Desiraeitting on:?06/02/2024 04:41 PM EDT History and Physical Notes * HPI (History [...]
--- OUTSIDE RECORDS SUMMARY | 2024-06-02 16:42 | XMS_ITS ---
Author Organization [facility] Address [address] [place] [address] Care Team Providers Care Social Service Worker Name Role Phone Raji Amanda MD Primary Care Provider Unavaila Sha Gaines Unavailable [phone] REASON FOR VISIT Fungal Nails Medications Medication [...] 10/15/2023 Encounters Encounter Location Date Provider Diagnosis [facility] [address] [place] [phone] 10/15/2023 Sha Willow Tinea unguium B35.1 ; [...] * Gene CORDERO ADOB:[birth year] (78 yo M)Acc No.[id number]:10/15/2023 Progress Note Patient:?Gene CORDERO Provider:?Sha Daugherty DPM :1945???Age:77 Y???Sex:Male Sanjeev e:10/15/2023 Address:[address] [place], [place] [id number] Pcp:Raji Amanda MD Subjective: * Chief Complaints: [...] Daugherty DPM Date:?2023 Generated for Lauri castillo/Marya/[place]ban on:?06/02/2024 04:42 PM EDT History and Physical Notes * [...]
--- OUTSIDE RECORDS SUMMARY | 2024-06-02 16:42 | XMS_ITS ---
Author Organization [facility] Address [address] [place] [address] Phone Care Team Providers Care Safe And Vault Mechanic Name Role Phone Troy Horta Primary Care Provider [phone] [facility] Unavailable [phone] Plan of Treatment No Plan of Treatment Recorded Assessments Includes: Assessments for all patient encounters No Assessments Recorded Medical Equipment - Implanted Devices Includes: Current and historical Devices No Medical Equipment Recorded Medications Includes: Current and historical Medications Current Medications (continue as prescribed) Tylenol Oral Tablet 07/02/2023 Provider: Diagnosis: Last Documented On 8:15AM By Cam Levy ; [facility] Medications Administered Includes: Administered Medications in patient's chart No Administered Medications Recorded Vital Signs Includes: Vital Signs from 06/03/2023 through 06/02/2024 Vital Name 10/02/2023 07:44A 07/02/2023 08: 13A Blood Pressure Sitting (mmHg) 136/84 121/72 Pulse Rate-Sitting (bpm) 69 116 Temp-Temporal 97.1 97.1 Weight (lb) 252 252 Oxygen Saturation (%) 97 95 Last Documented: On 10/02/2023 7:44AM ; [facility] On 07/02/2023 8:14AM ; [facility] Results Includes: Results from 06/03/2023 through 06/02/2024 No Results Recorded For Specified Dates History of Present Illness History of Present Illness not supported for this document type No History of Present Illness Recorded Social History No Social History Recorded - Smoking Status Unknown Procedures and Surgical History Includes: Procedures from 06/03/2023 through 06/02/2024 Procedures Code Diagnosis Performing Provider Service Location Service Date X-Ray Exam Of Ankle, minimum of 3 views (Right) [id number] Displ bimalleol fx r low leg, subs for clos fx w routn heal [facility]23 Last Documented On 4 2:11PM ; [facility] Medical History Includes: Medical History in [...] Physical Exam Recorded Encounters Includes: Encounters from 06/03/2023 through 06/02/2024 Encounter Provider Location Date Check-In Time Check-Out Time Diagnosis Established Patient Marcell Chase MD [facility] 10/02/19 24 8:00AM 7:44AM Established Patient Tavo Blanco MD [facility] 07/02/19 24 8:20AM 8:27AM Insurance Includes: Active Insurance Policies Plan Name Member ID Group # Subscriber Relationship Effect yelena Dates 1 - Medicare Part B [facility] [id number] Gene Echodio Self 2 - [employer] [id number] Gene [employer] Self 08/27/2015 - Unknown Clinical Notes Includes: Signed Clinical Notes starting from 02/05/2022 * Progress note Date Encounter Last Documented by 10/02/2023 Established Patient Leandro espinoza on 10/02/2023; 7:46 AM, [facility] Current Medication - Tylenol Oral Tablet [...] on 07/02/2023; 10:04 AM, Tavo Blanco MD; [facility], Chief Complaint Closed displaced bimalleolar fracture right [...]
--- OUTSIDE RECORDS SUMMARY | 2024-06-02 16:43 | XMS_ITS | Clinical Summary ---
Author Organization [facility] Address [address] [place] [address] Phone Care Team Providers Care Public Relations Professional Name Role Phone Troy Horta Group Primary Care Provider [phone] [facility] Unavailable [phone] Reason for Visit and Chief Complaint Established Patient Plan of Treatment Pending Tests Order Diagnosis Results Due Ordering P rovider Follow Up - Appointment PRN Displ bi malleol fx r low leg, subs for clos fx w routn heal 10/02/23 Marcell Chase MD Last Documented On 4 7:46AM ; [facility] Assessments Includes: Assessments from this encounter No Assessments Recorded Medical Equipment - Implanted Devices Includes: Current Devices No Medical Equipment Recorded Medications Includes: Medications discussed during this encounter and other current Medications Current Medications (continue as prescribed) Tylenol Oral Tablet 07/02/2023 Provider: Diagnosis: Last Documented On 4 8:15AM By Cam Levy ; [facility] Medications Administered Includes: Administered Medications from this encounter No Administered Medications Recorded Vital Signs Includes: Vital Signs from this encounter Vital Name 10/02/2023 07:44A Blood Pressure Sitting (mmHg) 136/84 Pulse Rate-Sitting (bpm) 69 Temp-Temporal 97.1 Weight (lb) 252 Oxygen Saturation (%) 97 Last Documented: On 10/02/2023 7:44AM ; [facility] Results Includes: Results discussed during this encounter [...] Of Ankle, minimum of 3 views (Right) [id number] Displ bimalleol fx r low leg, subs for clos fx w routn heal [facility]cell [facility] 10/02/2023 Last Documented On 4 2:11PM ; [facility] Medical History Includes: Medical History addressed during [...] Time Diagnosis Established Patient [facility]cell Chase [facility] 10/02/19 24 8:00AM 7:44AM Insurance Includes: Active Insurance Policies Plan Name Member ID Group # Subscriber Relationship Effect yelena Dates 1 - Medicare Part B [facility] [id number] Gene [employer] Self 2 - [employer] [id number] Gene [employer] Self 08/27/2015 - Unknown Clinical Notes Includes: Clinical Notes from this encounter * Progress note Date Encounter Last Documented by 10/02/2023 Established Patient Leandro espinoza on 10/02/2023; 7:46 AM, Marcell Chase MD; [facility] Current Medication - Tylenol Oral Tablet [...]
--- OUTSIDE RECORDS SUMMARY | 2024-06-02 16:43 | XMS_ITS ---
Author Organization [facility] Address [address] [place] [address] Care Team Providers Care Insurance Sales Specialist Name Role Phone Raji Amanda MD Primary Care Provider Adam Moraes Unavailable [phone] Allergies No Known Allergies REASON FOR VISIT Patient presents today for chronic hep b Medications Medication SIG (Take, Route, Fr equency, Duration) Notes Start Date End Date Status Entecavir 0.5 MG TAKE 1 TABLET BY SINA TH 1 TIME A DAY ON AN EMPTY STOMACH. Active Omeprazole 20 MG TAKE 1 CAPSULE BY MO [facility] EVERY DAY IN THE MORNING for 90 Active Allopurinol 100 MG Oral for 90 Active Vitamin B12 Active Social History Tobacco Use: Social History [...] drug use presently nor in the past Vital Signs Blood pressure systolic 00 mm Hg 02/06/20 24 Blood pressure diastolic 00 mm Hg 024 Height 72 in 02/06/2024 Weight 252 lbs 02/06/2024 BMI 34.17 kg/m2 02/06/2024 Encounters Encounter Location Date Provider Diagnosis [facility] [address] [place] [address] 02/06/2024 Adam Beebe Chronic viral hepati tis B without delta agent and without coma B18.1 ; Gastroesophageal reflux disease with esophagitis, unspecified whether hemorrhage K21.00 and Other cirrhosis of liver K74.69 Assessments Encounter Date Diagnosis (ICD Code) Assessment Notes Treatment Notes Treatment Clinical Notes Section Notes 02/06/2024 Chronic viral hepatitis B without delta [...] keep you advised of his progress. 02/06/2024 Other cirrhosis of liver (ICD-10 [...] to keep you advised of his progress. Plan Of Treatment Pending Test Test Name Order Date CHEM 7 PROFILE 02/06/2024 LIVER PROFILE 02/06/2024 CBC w DIFF 02/06/2024 ALPHA-FETOPROTEIN,TUMOR MARKER 12/11/202 4 HEPATITIS B E ANTIBODY 02/06/2024 HEPATITIS B E ANTIGEN 02/06/2024 Prothrombin Time INR 02/06/2024 Liver Fibrosis Pnl 02/06/2024 Hepatitis B Viral DNA Qn 02/06/2024 US abdomen comp w elastography Hepatitis B Profile 02/06/2024 Next Appt Details Follow Up: 1 Year, Reason: Provider Name:Adam Beebe , 02/11/2025 04:20:00 PM, [address] [facility] [address], [address], [place], [address], Progress Notes * ADAM ARGUETA ADOB:[birth year] (78 yo M)Acc No.[id number]:02/06/2024 Progress Notes Patient:?ADAM ARGUETA Provider:?Adam Beebe MD :1945???Age:78 Y???Sex:Male Sanjeev e:02/06/2024 Address:[address] [place] [address] Pcp:Raji Amanda MD Subjective: * Chief Complaints: * ???Patient presents today fo r chronic hep b * HPI: ???incontinence:? I saw Adam in followup today in regard to his chronic hepatitis B infection and presumed cirrhosis. ?Since I last saw Adam in June he reports that he has been feeling well. He has continued to remain compliant with the daily dose of 0.5mg Entecavir. He denies any particular GI symptoms at this time. He enjoys a good appetite and denies any significant heartburn or dysphagia. He denies any abdominal pain, jaundice, nor unintentional weight loss. He denies any increasing abdominal girth, edema, fevers, pruritus, nor fatigue. He denies any change in bowel habits, any hematochezia, nor any melena. He has not had any laboratories nor imaging studies for me since I saw him in June. * ROS:?General/Constitutional:?Change in appetite?denies.?Chills?denies.?Fatigue?denies.?Ophthalmologic:?Comments?all negative.?ENT:?Comments?all negative.?Respiratory:?hemoptysis?denies.?Cough?denies.?Cardiovascular:?Chest pain?denies.?Orthopnea?denies.?Gastrointestinal:?Comments?See HPI for details.?Genitourinary:?Hematuria?denies.?Dysuria?denies.?Musculoskeletal:?Painful joints?denies.?Weakness?denies.?Skin:?Itching?denies.?Rash?denies.?Neurologic:?Headache?denies.?Seizures?denies.?Psychiatric:?Comments?all negative.? * Medical History:? * Surgical History:?Back surge ry 04/2020 sciatic nerve Left hip replacement 04/[address] Cornell 3 kidney stones Broken right ankle Dec 2023 cateracts * Hospitalization/Major Diagno stic Procedure:?No Hospitalization History. * Family History:?Father: dece ased.?Mother: .? No known hx of colon cancer or liver disease. * Social History:?Tobacco Use:?Tobacco Use/Smoking?Patient is a?nonsmoker.?Drugs/Alcohol:?Alcohol Screen?Did you have a drink containing alcohol in the past year??Yes,?How often did you have a drink containing alcohol in the past year??Never (0 point),?How many drinks did you have on a typical day when you were drinking in the past year??1 or 2 drinks (0 point),?How often did you have 6 or more drinks on one occasion in the past year??Never (0 point),?Points?0,?Interpretation?Negative.?Miscellaneous:?Marital status: Single but living with a girlfriend. 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 ???Nonsmoker; no sig alcohol Denies any IVDA nor other drug use presently nor in the past. * Medications:?TakingVitamin B 12 Allopurinol 100 MG Tablet Oral Omeprazole 20 MG Capsule Delayed Release TAKE 1 CAPSULE BY MOUTH EVERY DAY IN THE MORNING Entecavir 0.5 MG Tablet TAKE 1 TABLET BY MOUTH 1 TIME A DAY ON AN EMPTY STOMACH. Medication List reviewed and reconciled with the patientTaking Vitamin B12 Taking Allopurinol 100 MG Tablet Oral Taking Omeprazole 20 MG Capsule Delayed Release TAKE 1 CAPSULE BY MOUTH EVERY DAY IN THE MORNING Taking Entecavir 0.5 MG Tablet TAKE 1 TABLET BY MOUTH 1 TIME A DAY ON AN EMPTY STOMACH. Medication List reviewed and reconciled with the patient * Allergies:?N.K.D.A.yes[Aller gies Verified] Objective: * Vitals:?Wt: 252 lbs, Ht: 72 in, BMI:34.17 Index, BP: 00/00 mm Hg. * Examination: ???General Examination: ?GENERAL APPEARANCE:?pleasant, well nourished, well developed, in no acute distress.?EYES:?sclera non-icteric.?ORAL CAVITY:?mucosa moist.?NECK/THYROID:?no cervical lymphadenopathy, neck supple.?SKIN:?nonjaundiced, no spider angiomata.?HEART:?S1, S2 normal.?LUNGS:?clear to auscultation bilaterally.?ABDOMEN:?normal bowel sounds, no guarding or rigidity, no guarding or rigidity, no masses palpable, soft, nontender, nondistended.?EXTREMITIES:?no edema.?NEUROLOGIC:?alert and oriented.? Assessment: * Assessment: 1.?Chronic viral hepatitis B without delta agent and without coma - B18.1 (Primary)?2.?Gastroesophageal reflux disease with esophagitis, unspecified whether hemorrhage - K21.00?3.?Other cirrhosis of liver - K74.69? Overall, Adam appears quit e well. He continues to remain compliant with [...] to keep you advised of his progress. Plan: * Treatment: * * Procedure Codes:?1036F TOBAC CO [id number] BP SCR NOT PRFRM REC REASON NOS * Preventive Medicine:? ??Counseling:?Care goal follow-up plan:?Above Normal BMI Follow-up?Giving encouragement to exercise,?BMI management provided?Yes.? ??Screenings:?Fall Risk Screening?Fall Risk Assessment:?No falls in the past year,?Screening:?No falls in the past year,?Assessment:?Not performed, no reason specified,?Plan of Care:?Not documented, no reason specified.? * Follow Up:?1 Year * * Sign off status: Completed true * Provider:?Adam Beebe MD Date:? 024 Generated for Lauri castillo/Marya/Alban on:?06/02/2024 04:42 PM EDT History and Physical Notes * HPI (History of Present Illness) Category Sub-Category Detail Notes Category Not es incontinence I saw Adam in followup today in regard to his chronic hepatitis B infection and presumed cirrhosis. Since I last saw Adam in June he reports that he has been feeling well. He has continued to remain compliant with the daily dose of 0.5mg Entecavir. He denies any particular GI symptoms at this time. He enjoys a good appetite and denies any significant heartburn or dysphagia. He denies any abdominal pain, jaundice, nor unintentional weight loss. He denies any increasing abdominal girth, edema, fevers, pruritus, nor fatigue. He denies any change in bowel habits, any hematochezia, nor any melena. He has not had any laboratories nor imaging studies for me since I saw him in June. Examination Category Sub-Category Detail Notes Category Not es General Examination GENERAL APPEARANCE: pleasant , well [...]
--- OUTSIDE RECORDS SUMMARY | 2024-06-02 16:43 | XMS_ITS | Clinical Summary ---
Author Organization [facility] Address [address] [place] [address] Phone Care Team Providers Care Burn Out Scarfing Operator Name Role Phone Troy Horta Group Primary Care Provider [phone] [facility] Unavailable [phone] Reason for Visit and Chief Complaint Post Op Visit/Follow Up Plan of Treatment Pending Tests Order Diagnosis Results Due Ordering P rovider Follow Up - Appointment 2 Weeks Displ bi malleol fx r low leg, subs for clos fx w routn heal 04/03/23 Marcell Chase MD Last Documented On 4 10:03AM ; [facility] Assessments Includes: Assessments from this encounter No Assessments Recorded Medical Equipment - Implanted Devices Includes: Current Devices No Medical Equipment Recorded Medications Includes: Medications discussed during this encounter and other current Medications Current Medications (continue as prescribed) Tylenol Oral Tablet 07/02/2023 Provider: Diagnosis: Last Documented On 4 8:15AM By Cam Levy ; [facility] Medications Administered Includes: Administered Medications [...] Post Op Visit/Follow Up Marcell Chase MD [facility] 04/03/19 24 9:00AM 10:14AM Insurance Includes: Active Insurance Policies Plan Name Member ID Group # Subscriber Relationship Effect yelena Dates 1 - Medicare Part B [facility] [id number] Gene Cordero Self 2 - [employer] [id number] Gene Westbrook 08/27/2015 - Unknown Clinical Notes Includes: Clinical Notes from this encounter * Progress note Date Encounter Last Documented by 04/03/2023 Post Op Visit/Follow Up Last doc umented on 04/03/2023; 10:03 AM, Marcell Chase MD; [facility], Physical Findings Chief complaint: Follow-up ORIF [...]
--- OUTSIDE RECORDS SUMMARY | 2024-06-02 16:43 | XMS_ITS ---
Author Organization [facility] Address [address] [place] [address] Care Team Providers Care Primary Care Coordinator Name Role Phone Raji Amanda MD Primary Care Provider Adam Moraes Unavailable [phone] Allergies No Known Allergies REASON FOR VISIT Patient presents today for chronic hep b Medications Medication SIG (Take, Route, Fr equency, Duration) Notes Start Date End Date Status Allopurinol 100 MG Oral for 90 Active Omeprazole 20 MG TAKE 1 CAPSULE BY MO [facility] EVERY DAY IN THE MORNING for 90 Active Entecavir 0.5 MG TAKE 1 TABLET BY SINA 1 TIME A DAY ON AN EMPTY STOMACH. Active Social History Tobacco Use: Social History [...] Signs Blood pressure systolic 00 mm Hg 07/03/19 24 Blood pressure diastolic 00 mm Hg 024 Height 72 in 07/03/2023 Weight 251 lbs 07/03/2023 BMI 34.04 kg/m2 07/03/2023 Encounters Encounter Location Date Provider Diagnosis [facility] [address] [place] [address] 07/03/2023 Adam Beebe Chronic viral hepati tis B without delta agent and without coma B18.1 ; Other cirrhosis of liver K74.69 ; Gastroesophageal reflux disease with esophagitis, unspecified whether hemorrhage K21.00 ; History of colon polyps Z86.010 and Cirrhosis of liver without ascites, unspecified hepatic cirrhosis type K74.60 Assessments Encounter Date Diagnosis (ICD Code) Assessment Notes Treatment Notes Treatment Clinical Notes Section Notes 07/03/2023 Chronic viral hepatitis B without delta agent and without coma (ICD-10 - B18.1) Continue the daily Entecavir shelter Overall, Adam appears well. His Entecavir continues [...] keep you advised of this progress. 07/03/2023 Other cirrhosis of liver (ICD-10 - [...] keep you advised of this progress. 07/03/2023 Gastroesophageal reflux disease with esophagitis, [...] keep you advised of this progress. 07/03/2023 History of colon polyps (ICD-10 [...] advised of this progress. Plan Of Treatment Medication Medication Name Sig Start Date Stop Date Notes Entecavir 0.5 MG TAKE 1 TABLET BY SINA TH 1 TIME A DAY ON AN EMPTY STOMACH. 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 I saw Adam in followup today in regard to his chronic hepatitis B infection, as well as his history of gastroesophageal reflux and colon polyps. ?I last saw Adam in April of 2022. Since that time he has remained on his daily 0.5 mg entecavir for the chronic hepatitis B. He continues to tolerate this without any adverse effects. His last 2 hepatitis B viral DNA levels have been nondetectable in June of 2022 and February of 2023. In April of 2023 he had a normal CBC except for a platelet count of 134,000 and a completely normal liver profile except for an alkaline phosphatase of 120. Laboratories in February of 2023 included a normal alpha-fetoprotein level, a liver fibrosis score of F4, and a normal PT with INR. Her last imaging of his liver was a CT scan in April of 2023 when he was in the ER for a kidney stone. There was no sign of any liver mass other than stable benign liver cysts. There was no evidence of any splenomegaly no ascites. His known gallstones were again noted. ?Adam feels very well. He enjoys a good appetite, without any significant heartburn or dysphagia. He denies any abdominal pain, jaundice, increasing abdominal girth, nor edema. His bowel movements have been regular and without any signs of bleeding. * ROS:?General/Constitutional:?Change in appetite?denies.?Chills?denies.?Fatigue?denies.?Ophthalmologic:?Comments?all negative.?ENT:?Comments?all negative.?Respiratory:?hemoptysis?denies.?Cough?denies.?Cardiovascular:?Chest pain?denies.?Orthopnea?denies.?Gastrointestinal:?Comments?See [...] but living with a girlfriend. 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 ???Nonsmoker; no sig alcohol Denies any IVDA nor other drug use presently nor in the past. * Medications:?TakingAllopurin ol 100 MG Tablet Oral Omeprazole 20 MG Capsule Delayed Release TAKE 1 CAPSULE BY MOUTH EVERY DAY IN THE MORNING Entecavir 0.5 MG Tablet TAKE 1 TABLET BY MOUTH 1 TIME A DAY ON AN EMPTY STOMACH. Taking Allopurinol 100 MG Tablet Oral Taking Omeprazole 20 MG Capsule Delayed Release TAKE 1 CAPSULE BY MOUTH EVERY DAY IN THE MORNING Taking Entecavir 0.5 MG Tablet TAKE 1 TABLET BY MOUTH 1 TIME A DAY ON AN EMPTY STOMACH. DiscontinuedVitamin B6 Ondansetron HCl 4 MG Tablet Oral Medication List reviewed and reconciled with the patientDiscontinued Vitamin B6 Discontinued Ondansetron HCl 4 MG Tablet Oral Medication List reviewed and reconciled with the patient * Allergies:?N.K.D.A.yes[Aller gies Verified] Objective: * Vitals:?Wt: 251 lbs, Ht: 72 in, BMI:34.04 Index, BP: 00/00 mm Hg. * Examination: [...] delta agent and without coma - B18.1 (Primary)?2.?Other cirrhosis of liver - K74.69?3.?Gastroesophageal reflux disease with esophagitis, unspecified whether hemorrhage - K21.00?4.?History of colon polyps - Z86.010?5.?Cirrhosis of liver without ascites, unspecified hepatic cirrhosis type - K74.60? Overall, Adam appears well . His Entecavir continues to be working very [...] to keep you advised of this progress. Plan: * Treatment: 2.?Others? Continue Entecavir Tablet, 0.5 MG, TAKE 1 TABLET BY MOUTH 1 TIME A DAY ON AN EMPTY STOMACH..?? * Procedure Codes:?1036F TOBAC CO [id number] BP SCR NOT PRFRM REC REASON NOS * Preventive Medicine:? ??Counseling:?Care goal follow-up plan:?Above Normal BMI Follow-up?Giving encouragement to exercise,?BMI management provided?Yes.? * Follow Up:?01/2024 * * Sign off status: Completed true * Provider:?Adam Beebe MD Date:? 024 Generated for Lauri castillo/Marya/Alban on:?06/02/2024 04:42 PM EDT History and Physical Notes * HPI (History of Present Illness) Category Sub-Category Detail Notes Category Not es incontinence I saw Adam in followup today in regard to his chronic hepatitis B infection, as well as his history of gastroesophageal reflux and colon polyps. I last saw Adam in April of 2022. Since that time he has remained on his daily 0.5 mg entecavir for the chronic hepatitis B. He continues to tolerate this without any adverse effects. His last 2 hepatitis B viral DNA levels have been nondetectable in June of 2022 and February of 2023. In April of 2023 he had a normal CBC except for a platelet count of 134,000 and a completely normal liver profile except for an alkaline phosphatase of 120. Laboratories in February of 2023 included a normal alpha-fetoprotein level, a liver fibrosis score of F4, and a normal PT with INR. Her last imaging of his liver was a CT scan in April of 2023 when he was in the ER for a kidney stone. There was no sign of any liver mass other than stable benign liver cysts. There was no evidence of any splenomegaly no ascites. His known gallstones were again noted. Adam feels very well. He enjoys a good appetite, without any significant heartburn or dysphagia. He denies any abdominal pain, jaundice, increasing abdominal girth, nor edema. His bowel movements have been regular and without any signs of bleeding. Examination Category Sub-Category Detail Notes Category Not [...]
--- OUTSIDE RECORDS SUMMARY | 2024-06-02 16:43 | XMS_ITS ---
Care Plan - [facility] Created on: June 02, 2024 Gene Cordero : 1945 Sex: Male Author Organization [facility] Address [address] [place] [address] Phone Care Team Providers Care Molecular Modeler Name Role Phone Troy Horta Primary Care Provider [phone] [facility] Unavailable [phone]
--- OUTSIDE RECORDS SUMMARY | 2024-06-02 16:43 | XMS_ITS ---
Author Organization [facility] Address [address] [place] [address] Care Team Providers Care City Weighmaster Name Role Phone Raji Amanda MD Primary Care Provider Unavaila Adam Paris Unavailable [phone] REASON FOR VISIT Patient presents today for chronic hep b Encounters Encounter Location Date Provider Diagnosis [facility] [address] [place] [address] [address] [place] [address] 03/23/2023 Adam Beebe Plan Of Treatment Next Appt Details Provider Name:Adam Beebe , 02/11/2025 04:20:00 PM, [address] [facility] [address], [address], [place], [address], Progress Notes * ADAM ARGUETA ADOB:[birth year] (78 yo M)Acc No.[id number]:03/23/2023 Progress Notes Patient:?ADAM ARGUETA Provider:?Adam Beebe MD :1945???Age:77 Y???Sex:Male Sanjeev e:03/23/2023 Address:[address] [place] [address] [place], [place] [id number] Pcp:Raji Amanda MD Subjective: * Chief Complaints: * ???1. Patient presents today for chronic hep b. * Medical History:? Objective: * Vitals:? Assessment: Plan: * Treatment: * * The named appointment provid er may or may not be the originator of this progress note, and it is not deemed complete until electronically signed by the appointment provider. Sign off status: Pending * Provider:?Adam Beebe MD Date:? 024 Generated for Lauri castillo/Marya/Alban on:?06/02/2024 04:43 PM EDT
--- OUTSIDE RECORDS SUMMARY | 2024-06-02 16:43 | XMS_ITS | Clinical Summary ---
Author Organization [facility] Address [address] [place] [address] Phone Care Team Providers Care Carpenter And Joiner Name Role Phone Raji Amanda MD Primary Care Provider [phone] Allergies No known active allergies Medications allopurinoL [...] Encounters Date Type Department Care Team Description 05/21/2024 3:39 PM EDT - 05/21/2024 11:59 PM EDT Hospital Encounter [facility] CT Scan [address] [place] [address] Lung nodule seen on imaging study Discharge Disposition: Home or Self Care 04/23/2024 1:09 PM EST - 04/23/2024 11:59 PM EST Hospital Encounter [facility] Xray [address] [place] [address] Wheezing Discharge Disposition: Home or Self Care 03/30/2024 8:24 AM EST - 03/31/2024 1:30 PM EST [facility] [address] [place] [id number] Leodan Snider MD Ishtiaq, Rizwan, MD Kela, [...] care for your loved ones. For example, vocational childcare teacher or elderly care for an older [...] (2 of 3) 02/27/2011 01/02/2011 RSV Immunization Adult Patients (1 - 1-dose 75+ series) 12/26/2019 Cholesterol [...] age to complete this topic Meningococcal B Vaccine Aged Out No l onger eligible based on patient's age to complete this topic RSV Immunization Patients Under 20 months Aged Out No longer eligible based on patient's age to complete this topic Varicella Vaccines Aged Out No longer eligible based on patient's age to complete this topic Procedures Procedure Name Priority Date/Time Associated Diagnosis Comments CT CHEST WO CONTRAST Routine 05/21/2024 4:22 PM EDT Lung nodule seen on imaging study XR CHEST 2 VIEWS Routine 04/23/2024 1:31 [...] 03/30/2024 from Last 3 Months Results * CT Chest wo Contrast (05/21/2024 4:22 PM EDT) Anatomical Region Laterality Modality Body Computed Tomogra phy 05/27/2024 10:0 6 AM EDT Impressions 05/27/2024 10:22 AM EDT No suspicious mass or nodule. The previously suggested right upper lobe nodule has either resolved or is not demonstrated. Hypoinflation. There may be some basilar fibrosis without honeycomb formation. ?? -------- FINAL REPORT -------- Dictated By: Fady Brenner Dictated Date: 05/27/2024 10:06 ET Assigned Physician: Fady Brenner Reviewed and Electronically Signed By: Fady Brenner Signed Date: 05/27/2024 10:22 ET Workstation ID: [id number] Transcribed By: Self Edit Transcribed Date: 05/27/2024 10:06 ET Narrative 05/27/2024 10:22 AM EDT EXAMINATION: CT CHEST WITHOUT CONTRAST CLINICAL INFORMATION: Lung nodule. Moderate/high risk. ??Report from CT angiography of the chest 03/30/24 indicated 0.3 cm nodule posterior right upper lobe COMPARISON: Portions of CT for every second 2024 ?? TECHNIQUE: Multidetector CT. Examination of the chest. Examination of the chest without IV contrast. Reformatting in the coronal and sagittal planes. DLP: 805 mGy-cm Dose optimization was performed including the use of low-dose iterative reconstruction technique with automatic exposure control based on patient size. Type of contrast: None Volume of IV contrast: None Volume of contrast discarded: 0 mL FINDINGS: LUNG: No abnormality of the trachea or mainstem bronchi. There is no suspicious mass or nodule. Specifically the 0.3 cm nodule demonstrated in the previous CT has either resolved or is not demonstrated. There is hypoinflation with some reticular and groundglass lower lung zone opacities greatest dependently. There is no honeycomb formation. No evidence of acute pneumonia. ?? MEDIASTINUM: ??There are no enlarged mediastinal or hilar lymph nodes. No suspicious abnormality of the esophagus CARDIAC: The heart is not enlarged. No pericardial fluid or thickening ?? CORONARY CALCIFICATION: ??There are marked coronary calcifications. VASCULAR: There is no thoracic aortic aneurysm. The main pulmonary artery is normal caliber ?? PLEURA: There is no pleural fluid or pneumothorax ?? AXILLA/CHEST WALL: There are no enlarged axillary lymph nodes. No chest wall mass demonstrated ?? VISUALIZED UPPER ABDOMEN: ??The abdomen has been recently examined. Circumscribed low attenuating liver lesions most consistent with cysts appear similar. There is cholelithiasis. There are calcifications in the right kidney. MUSCULOSKELETAL: No suspicious focal bony lesion. ??There are degenerative changes in the spine with a minimal thoracic scoliosis. Procedure Note Fady Brenner MD - 05/27/2024 EXAMINATION: CT CHEST WITHOUT CONTRAST CLINICAL INFORMATION: Lung nodule. Moderate/high risk. Report from CT angiography of the chest03/30/24 indicated 0.3 cm nodule posterior right upper lobe COMPARISON: Portions of CT for every second 2024 TECHNIQUE: Multidetector CT. Examination of the chest. Examination of the chest without IV contrast. Reformatting in the coronal and sagittal planes. DLP: 805 mGy-cm Dose optimization was performed including the use of low-dose iterativereconstruction technique with automatic exposure control based on patientsize. Type of contrast: None Volume of IV contrast: None Volume of contrast discarded: 0 mL FINDINGS: LUNG: No abnormality of the trachea or mainstem bronchi. There is no suspicious mass or nodule. Specifically the 0.3 cm nodule demonstrated in the previous CT has eitherresolved or is not demonstrated. There is hypoinflation with some reticular and groundglass lower lung zoneopacities greatest dependently. There is no honeycomb formation. Noevidence of acute pneumonia. MEDIASTINUM: There are no enlarged mediastinal or hilar lymph nodes. Nosuspicious abnormality of the esophagus CARDIAC: The heart is not enlarged. No pericardial fluid or thickening CORONARY CALCIFICATION: There are marked coronary calcifications. VASCULAR: There is no thoracic aortic aneurysm. The main pulmonary arteryis normal caliber PLEURA: There is no pleural fluid or pneumothorax AXILLA/CHEST WALL: There are no enlarged axillary lymph nodes. No chestwall mass demonstrated VISUALIZED UPPER ABDOMEN: The abdomen has been recently examined.Circumscribed low attenuating liver lesions most consistent with cystsappear similar. There is cholelithiasis. There are calcifications in theright kidney. MUSCULOSKELETAL: No suspicious focal bony lesion. There are degenerativechanges in the spine with a minimal thoracic scoliosis. IMPRESSION: No suspicious mass or nodule. The previously suggested right upper lobenodule has either resolved or is not demonstrated. Hypoinflation. There may be some basilar fibrosis without honeycombformation. -------- FINAL REPORT -------- Dictated By: Fady Brenner Dictated Date: 05/27/2024 10:06 ET Assigned Physician: Fady Brenner Reviewed and Electronically Signed By: Fady Brenner Signed Date: 05/27/2024 10:22 ET Workstation ID: [id number] Transcribed By: Self Edit Transcribed Date: 05/27/2024 10:06 ET us Mansi MAGUIRE IMG CT PROCEDURES Final Re sult * XR Chest 2 Views (04/23/2024 1:31 PM EST) Anatomical Region Laterality Modality Body Radiographic Citlali ging 04/23/2024 1:42 PM EST Impressions 04/23/2024 1:43 PM EST Impression: No active pulmonary process identified. Telerad TING ([id number]) -------- FINAL REPORT -------- Dictated By: Melisa Sierra Dictated Date: 04/23/2024 13:42 ET Assigned Physician: Melisa Sierra Reviewed and Electronically Signed By: Melisa Sierra Signed Date: 04/23/2024 13:43 ET Workstation ID: [id number] Transcribed By: Self Edit Transcribed Date: 04/23/2024 [...] No active pulmonary process identified. Telerad PA ([id number]) -------- FINAL REPORT -------- Dictated By: Melisa Sierra Dictated Date: 04/23/2024 13:42 ET Assigned Physician: Melisa Sierra Reviewed and Electronically Signed By: Melisa Sierra Signed Date: 04/23/2024 13:43 ET Workstation ID: [id number] Transcribed By: Self Edit Transcribed Date: 04/23/2024 13:42 ET us Crow Flores MD IMG XR PROCEDURES Final Resu lt * (ABNORMAL) CBC auto differential (03/31/2024 6:05 AM EST) Only the most recent of2 resultswithin the time period is included. WBC 4.0(L) 4.8 - 10.8 K/mcL LAB HEMETOLOGY METHOD 03/31/2024 8:24 AM EST [facility] RBC 4.30(L) 4.50 - 5.50 M/mcL LAB HEMETOLOGY METHOD 03/31/2024 8:24 AM [facility] Hemoglobin 11.8(L) 13.5 - 17.5 g/dL LAB HEMETOLOGY METHOD 03/31/2024 8:24 AM [facility] Hematocrit 37.1(L) 42.0 - 54.0 % LAB HEMETOLOGY METHOD 03/31/2024 8:24 AM [facility] MCV 87.1 79.0 - 98.0 FL LAB HEMETOLOGY METHOD 03/31/2024 8:24 AM [facility] MCH 27.7 27.0 - 32.0 pcg LAB HEMETOLOGY METHOD 03/31/2024 8:24 AM [facility] MCHC 31.8(L) 32.0 - 37.0 g/dL LAB HEMETOLOGY METHOD 03/31/2024 8:24 AM [facility] RDW 15.6(H) 11.0 - 15.0 % LAB HEMETOLOGY METHOD 03/31/2024 8:24 AM [facility] Platelets 88(L) 130 - 400 K/mcL LAB HEMETOLOGY METHOD 03/31/2024 8:24 AM [facility] Comment:reviewed by slide MPV 12.1(H) 7.0 - 11.0 FL LAB HEMETOLOGY METHOD 03/31/2024 8:24 AM [facility] NRBC 0.0 <1.0 % LAB HEMETOLOGY METHOD 03/31/2024 8:24 AM [facility] NRBC Absolute 0.00 <0.10 K/mcL LAB HEMETOLOGY METHOD 03/31/2024 8:24 AM [facility] Neutrophils Relative 79.3 % LAB HEMETOLOGY METHOD 03/31/2024 8:24 AM [facility] Lymphocytes Relative 9.9 % LAB HEMETOLOGY METHOD 03/31/2024 8:24 AM [facility] Monocytes Relative 10.4 % LAB HEMETOLOGY METHOD 03/31/2024 8:24 AM [facility] Eosinophils Relative 0.0 % LAB HEMETOLOGY METHOD 03/31/2024 8:24 AM [facility] Basophils Relative 0.2 % LAB HEMETOLOGY METHOD 03/31/2024 8:24 AM [facility] Immature Granulocytes Relative 0.2 % LAB HEMETOLOGY METHOD 03/31/2024 8:24 AM [facility] Neutrophils Absolute 3.20 1.50 - 7.00 K/mcL LAB HEMETOLOGY METHOD 03/31/2024 8:24 AM [facility] Lymphocytes Absolute 0.40(L) 1.00 - 5.00 K/mcL LAB HEMETOLOGY METHOD 03/31/2024 8:24 AM [facility] Monocytes Absolute 0.42 0.20 - 1.00 K/mcL LAB HEMETOLOGY METHOD 03/31/2024 8:24 AM [facility] Eosinophils Absolute 0.00 0.00 - 0.50 K/mcL LAB HEMETOLOGY METHOD 03/31/2024 8:24 AM [facility] Basophils Absolute 0.01 0.00 - 0.20 K/mcL LAB HEMETOLOGY METHOD 03/31/2024 8:24 AM [facility] Immature Granulocytes Absolute 0.01 0.00 - 0.03 K/mcL LAB HEMETOLOGY METHOD 03/31/2024 8:24 AM [facility] Blood Venous blood specimen / Unknown Venipuncture / Unknown 03/31/2024 6:05 AM EST 03/31/2024 7:14 AM EST us Leland Esteban MD LAB BLOOD ORDERABLES Final Res ult [facility] [address] [place] [address], [place] [phone] * (ABNORMAL) Magnesium (03/31/2024 6:05 AM EST) Pathologist [facility] Magnesium 1.7(L) 1.9 - 2.6 mg/dL LAB CHEMISTRY METHOD 03/31/2024 7:52 AM EST [facility] Blood Venous blood specimen / Unknown Venipuncture / Unknown 03/31/2024 6:05 AM EST 03/31/2024 7:14 AM EST Leland Esteban MD LAB BLOOD ORDERABLES Final Res ult Performing Organization Address [facility]/ZIP Co de Phone Number [facility] [address] [place] [address], * (ABNORMAL) Comprehensive metabolic panel (03/31/2024 6:05 AM EST) Only the most recent of2 resultswithin the time period is included. Pathologist [facility] Sodium 137 133 - 145 mmol/L LAB CHEMISTRY METHOD 03/31/2024 8:23 AM [facility] Potassium 3.8 3.5 - 5.5 mmol/L LAB CHEMISTRY METHOD 03/31/2024 8:23 AM [facility] Chloride 108 96 - 110 mmol/L LAB CHEMISTRY METHOD 03/31/2024 8:23 AM [facility] CO2 27 21 - 32 mmol/L LAB CHEMISTRY METHOD 03/31/2024 8:23 AM [facility] Anion Gap 2(L) 3 - 11 LAB CHEMISTRY METHOD 03/31/2024 8:23 AM [facility] Glucose 90 70 - 100 mg/dL LAB CHEMISTRY METHOD 03/31/2024 8:23 AM [facility] BUN 20 5 - 25 mg/dL LAB CHEMISTRY METHOD 03/31/2024 8:23 AM [facility] Creatinine 0.99 0.70 - 1.30 mg/dL LAB CHEMISTRY METHOD 03/31/2024 8:23 AM [facility] eGFR 77 >=60 mL/min/1. 73m2 LAB CHEMISTRY METHOD 03/31/2024 8:23 AM [facility] Comment:Calculation based on the??Chronic Kidney Disease Epidemiology Collaboration (CKD-EPI) equation refit??without adjustment for race. BUN/Creatinine Ratio 20.2 LAB CHEMISTRY METHOD 03/31/2024 8:23 AM [facility] Calcium 7.9(L) 8.5 - 10.5 mg/dL LAB CHEMISTRY METHOD 03/31/2024 8:23 AM [facility] AST (SGOT) 29 10 - 42 unit/L LAB CHEMISTRY METHOD 03/31/2024 8:23 AM [facility] ALT (SGPT) 24 10 - 60 unit/L LAB CHEMISTRY METHOD 03/31/2024 8:23 AM [facility] Alkaline Phosphatase 72 42 - 121 unit/L LAB CHEMISTRY METHOD 03/31/2024 8:23 AM [facility] Total Protein 5.7(L) 6.0 - 8.0 g/dL LAB CHEMISTRY METHOD 03/31/2024 8:23 AM [facility] Albumin 2.9(L) 3.2 - 5.0 g/dL LAB CHEMISTRY METHOD 03/31/2024 8:23 AM [facility] Total Bilirubin 1.3 0.0 - 1.4 mg/dL LAB CHEMISTRY METHOD 03/31/2024 8:23 AM [facility] Blood Venous blood specimen / Unknown Venipuncture / Unknown 03/31/2024 6:05 AM EST 03/31/2024 7:14 AM EST us Mansi MAGUIRE LAB BLOOD ORDERABLES Final Result [facility] [address] [place] [address], [place] [phone] * (ABNORMAL) Basic metabolic panel (03/31/2024 6:05 AM EST) Sodium 139 133 - 145 mmol/L LAB CHEMISTRY METHOD 03/31/2024 7:52 AM [facility] Potassium 3.8 3.5 - 5.5 mmol/L LAB CHEMISTRY METHOD 03/31/2024 7:52 AM [facility] Chloride 108 96 - 110 mmol/L LAB CHEMISTRY METHOD 03/31/2024 7:52 AM [facility] CO2 27 21 - 32 mmol/L LAB CHEMISTRY METHOD 03/31/2024 7:52 AM [facility] Anion Gap 4 3 - 11 LAB CHEMISTRY METHOD 03/31/2024 7:52 AM [facility] Glucose 93 70 - 100 mg/dL LAB CHEMISTRY METHOD 03/31/2024 7:52 AM [facility] BUN 19 5 - 25 mg/dL LAB CHEMISTRY METHOD 03/31/2024 7:52 AM [facility] Creatinine 0.99 0.70 - 1.30 mg/dL LAB CHEMISTRY METHOD 03/31/2024 7:52 AM [facility] eGFR 77 >=60 mL/min/1. 73m2 LAB CHEMISTRY METHOD 03/31/2024 7:52 AM [facility] Comment:Calculation based on the??Chronic Kidney Disease Epidemiology Collaboration (CKD-EPI) equation refit??without adjustment for race. BUN/Creatinine Ratio 19.2 LAB CHEMISTRY METHOD 03/31/2024 7:52 AM [facility] Calcium 7.9(L) 8.5 - 10.5 mg/dL LAB CHEMISTRY METHOD 03/31/2024 7:52 AM [facility] Blood Venous blood specimen / Unknown Venipuncture / Unknown 03/31/2024 6:05 AM EST 03/31/2024 7:14 AM EST us Leland Esteban MD LAB BLOOD ORDERABLES Final Res ult [facility] [address] [place] [address], [place] [phone] * (ABNORMAL) Gastrointestinal pathogens molecular study (03/31/2024 12:39 AM EST) Campylobacter Detection by PCR Not Detected Not Detected LAB MICROBIOLOGY METHOD 5 2:10 AM EST [facility] Plesiomonas shigelloides Detection by PCR Not Detected Not Detected LAB MICROBIOLOGY METHOD 5 2:10 AM EST [facility] Salmonella Detection by PCR Not Detected Not Detected LAB MICROBIOLOGY METHOD 5 2:10 AM EST [facility] Vibrio Detection by PCR Not Detected Not Detected LAB MICROBIOLOGY METHOD 5 2:10 AM EST [facility] Vibrio cholerae Detection by PCR Not Detected Not Detected LAB MICROBIOLOGY METHOD 5 2:10 AM EST [facility] Yersinia enterocolitica Detection by PCR Not Detected Not Detected LAB MICROBIOLOGY METHOD 5 2:10 AM EST [facility] Enteroaggregative E coli EAEC Detection by PCR Not Detected Not Detected LAB MICROBIOLOGY METHOD 5 2:10 AM EST [facility] Enteropathogenic E coli EPEC Detection Not Detected Not Detected LAB MICROBIOLOGY METHOD 5 2:10 AM EST [facility] Enterotoxigenic E coli ETEC LTST Detection Not Detected Not Detected LAB MICROBIOLOGY METHOD 5 2:10 AM EST [facility] Shiga-like toxin producing E coli STEC STX1 STX2 Det Not Detected Not Detected LAB MICROBIOLOGY METHOD 5 2:10 AM EST [facility] Shigella Enteroinvasive E coli EIEC Detection Not Detected Not Detected LAB MICROBIOLOGY METHOD 5 2:10 AM [facility] Cryptosporidium Detection by PCR Not Detected Not Detected LAB MICROBIOLOGY METHOD 5 2:10 AM [facility] Cyclospora cayetanensis Detection by PCR Not Detected Not Detected LAB MICROBIOLOGY METHOD 5 2:10 AM [facility] Entamoeba histolytica Detection by PCR Not Detected Not Detected LAB MICROBIOLOGY METHOD 5 2:10 AM [facility] Giardia lamblia Detection by PCR Not Detected Not Detected LAB MICROBIOLOGY METHOD 5 2:10 AM [facility] Adenovirus F 40 41 Detection by PCR Not Detected Not Detected LAB MICROBIOLOGY METHOD 5 2:10 AM [facility] Astrovirus Detection by PCR Not Detected Not Detected LAB MICROBIOLOGY METHOD 5 2:10 AM [facility] Norovirus GI GII Detection by PCR Detected(A ) Not Detected LAB MICROBIOLOGY METHOD 5 2:10 AM [facility] Sapovirus Detection by PCR Not Detected Not Detected LAB MICROBIOLOGY METHOD 5 2:10 AM [facility] Rotavirus A Detection by PCR Not Detected Not Detected LAB MICROBIOLOGY METHOD 5 2:10 AM [facility] Stool Rectum structure / Unknown Non-blood Collection / Unknown 03/31/2024 12:39 AM EST 03/31/2024 12:48 AM [facility] - 03/31/2024 2:10 AM EST [...] MICROBIOLOGY - GENE RAL ORDERABLES Final Result [facility] [address] [place] [address], [place] [phone] * CT Abdomen Pelvis w Contrast (03/30/2024 [...] of2 resultswithin the time period is included. [facility] Culture, Blood No growth at 5 days 04/04/2024 11:01 PM EST [facility] Blood Venous blood specimen / Unknown Venipuncture / Unknown 03/30/2024 9:37 PM EST 03/30/2024 10:06 PM EST Leland Esteban MD LAB MICROBIOLOGY - GENERAL ORD ERABLES Final Result Performing Organization Address [facility] Co de Phone Number [facility] [address] [place] [address], [place] [phone] * Lactate, with reflex (03/30/2024 9:29 PM EST) [facility] LACTIC ACID 1.8 0.4 - 2.0 mmol/L LAB CHEMISTRY METHOD 03/30/2024 10:33 PM EST [facility] Blood Venous blood specimen / Unknown Venipuncture / Unknown 03/30/2024 9:29 PM EST 03/30/2024 10:05 PM EST us Leland Esteban MD LAB BLOOD ORDERABLES Final Res ult Performing Organization Address City/[facility]/ZIP Co de Phone Number [facility] [address] [place] [address], [place] [phone] * (ABNORMAL) Urinalysis with reflex microscopic (03/30/2024 4:22 PM EST) Specific [place] Urine >1.045(H) 1.003 - 1.030 LAB URINALYSIS - AUTOMATED METHOD 03/30/2024 4:52 PM EST [facility] pH, Urine 5.5 5.0 - 8.0 pH LAB URINALYSIS - AUTOMATED METHOD 03/30/2024 4:52 PM [facility] Leukocytes, Urine Negative Negative LAB URINALYSIS - AUTOMATED METHOD 03/30/2024 4:52 PM [facility] Nitrite, Urine Negative Negative LAB URINALYSIS - AUTOMATED METHOD 03/30/2024 4:52 PM [facility] Protein, Urine Negative <=Trace mg/dL LAB URINALYSIS - AUTOMATED METHOD 03/30/2024 4:52 PM [facility] Glucose, Urine Negative Negative mg/dL LAB URINALYSIS - AUTOMATED METHOD 03/30/2024 4:52 PM [facility] Ketones, Urine Negative Negative mg/dL LAB URINALYSIS - AUTOMATED METHOD 03/30/2024 4:52 PM [facility] Urobilinogen , Urine 1.0 0.2 - 1.0 mg/dL LAB URINALYSIS - AUTOMATED METHOD 03/30/2024 4:52 PM [facility] Bilirubin, Urine Negative Negative LAB URINALYSIS - AUTOMATED METHOD 03/30/2024 4:52 PM [facility] Blood, Urine Negative Negative LAB URINALYSIS - AUTOMATED METHOD 03/30/2024 4:52 PM [facility] Urine Urine specimen obtained by clean catch procedure / Unknown Non-blood Collection / Unknown 03/30/2024 4:22 PM EST 03/30/2024 4:40 PM EST Tobin MAGUIRE LAB URINE ORDERABLES Angelique l Result Performing Organization Address [facility]/ZIP Co de Phone Number [facility] [address] [place] [address], [place] [phone] * Troponin I high sensitivity (03/30/2024 3:21 PM EST) High Sensitivity Troponin I 9 <=79 ng/L LAB CHEMISTRY METHOD 03/30/2024 4:02 PM EST [facility] Blood Venous blood specimen / Unknown Venipuncture / Unknown 03/30/2024 3:21 PM EST 03/30/2024 3:35 PM EST Narrative [facility] - 03/30/2024 4:02 PM EST High levels of biotin in samples may falsely decrease hsTroponin values. ??Use caution when interpreting hsTroponin results in patients taking biotin who exhibit renal impairment (eGFR <60) or in patients taking more than 20 mg/day of biotin. Tobin MAGUIRE LAB BLOOD ORDERABLES Angelique l Result Performing Organization Address [facility] Co de Phone Number [facility] [address] [place] [address], [place] [phone] * B-type natriuretic peptide (03/30/2024 3:21 PM EST) Pathologist [facility] BNP 75 <=100 pcg/mL LAB CHEMISTRY METHOD 03/30/2024 4:09 PM EST [facility] Blood Venous blood specimen / Unknown Venipuncture / Unknown 03/30/2024 3:21 PM EST 03/30/2024 3:35 PM EST Tobin MAGUIRE LAB BLOOD ORDERABLES Angelique l Result Performing Organization Address City/[facility]/ZIP Co de Phone Number [facility] [address] [place] [address], [place] [phone] * CT Angio Chest wo and/or w [...] Signed Date: 03/30/2024 14:53 ET Workstation ID: [id number] Transcribed By: Self Edit Transcribed Date: 03/30/2024 [...] Signed Date: 03/30/2024 14:53 ET Workstation ID: [id number] Transcribed By: Self Edit Transcribed Date: 03/30/2024 14:48 ET Tobin MAGUIRE IMG CT PROCEDURES Final R esult * Respiratory virus panel molecular study (03/30/2024 11:59 AM EST) Adenovirus Detection by PCR Not Detected Not Detected LAB MICROBIOLOGY METHOD 03/30/2024 1:28 PM [facility] Influenza A PCR Not Detected Not Detected LAB MICROBIOLOGY METHOD 03/30/2024 1:28 PM [facility] Influenza B PCR Not Detected Not Detected LAB MICROBIOLOGY METHOD 03/30/2024 1:28 PM [facility] Coronavirus 229E Not Detected Not Detected LAB MICROBIOLOGY METHOD 03/30/2024 1:28 PM [facility] Coronavirus HKU1 Not Detected Not Detected LAB MICROBIOLOGY METHOD 03/30/2024 1:28 PM [facility] Coronavirus OC43 Not Detected Not Detected LAB MICROBIOLOGY METHOD 03/30/2024 1:28 PM [facility] Coronavirus NL63 Not Detected Not Detected LAB MICROBIOLOGY METHOD 03/30/2024 1:28 PM [facility] Parainfluenza Virus 1 Not Detected Not Detected LAB MICROBIOLOGY METHOD 03/30/2024 1:28 PM [facility] Parainfluenza Virus 2 Not Detected Not Detected LAB MICROBIOLOGY METHOD 03/30/2024 1:28 PM [facility] Parainfluenza Virus 3 Not Detected Not Detected LAB MICROBIOLOGY METHOD 03/30/2024 1:28 PM [facility] Parainfluenza Virus 4 Not Detected Not Detected LAB MICROBIOLOGY METHOD 03/30/2024 1:28 PM [facility] RSV PCR Not Detected Not Detected LAB MICROBIOLOGY METHOD 03/30/2024 1:28 PM [facility] Human Metapneumovirus A and B Not Detected Not Detected LAB MICROBIOLOGY METHOD 03/30/2024 1:28 PM [facility] Rhinovirus/Entero virus Not Detected Not Detected LAB MICROBIOLOGY METHOD 03/30/2024 1:28 PM [facility] Bordetella pertussis Not Detected Not Detected LAB MICROBIOLOGY METHOD 03/30/2024 1:28 PM [facility] Bordetella parapertussis Not Detected Not Detected LAB MICROBIOLOGY METHOD 03/30/2024 1:28 PM [facility] Mycoplasma pneumo by PCR Not Detected Not Detected LAB MICROBIOLOGY METHOD 03/30/2024 1:28 PM [facility] Chlamydia pneumoniae Not Detected Not Detected LAB MICROBIOLOGY METHOD 03/30/2024 1:28 PM [facility] SARS COV-2 Not Detected Not Detected LAB MICROBIOLOGY METHOD 03/30/2024 1:28 PM [facility] Swab Both anterior nares / Unknown Non-blood Collection / Unknown 03/30/2024 11:59 AM EST 03/30/2024 12:10 PM EST [facility] - 03/30/2024 1:28 PM EST Testing was performed using the [employer] Respiratory Pathogen PCR Assay. All results must [...] L ORDERABLES Final Result Performing Organization Address City/State/[facility] Co de Phone Number [facility] [address] [place] [address], [place] [phone] * ECG 12 lead (03/30/2024 9:24 AM EST) Ventricular Rate ECG 121 BPM GEMUSE Atrial Rate 121 BPM GEMUSE P-R Interval 162 ms GEMUSE QRS Duration 82 ms GEMUSE Q-T Interval 320 ms GEMUSE QTc 454 ms GEMUSE P Wave [place] 43 degrees GEMUSE R [place] 8 degrees GEMUSE T [place] 42 degrees GEMUSE ECG Interpretation Sinus tachycardia When compared with ECG of 18-MAR-2023 20:07, Nonspecific T wave abnormality no longer evident in Lateral leads Confirmed by DEEPA BARNES ([id number]) on 03/31/2024 5:16:49 AM GEMUSE 03/30/2024 9:24 AM EST 03/31/2024 5:16 AM EST Tobin MAGUIRE ECG ORDERABLES Final Res ult Performing Organization Address [facility] de Phone Number GEMUSE * (ABNORMAL) Thyroid stimulating hormone with reflex to free t4 and free t3 (TSH Reflex) (03/30/2024 8:38 AM EST) TSH 4.06(H) 0.40 - 4.00 mcIU/mL LAB CHEMISTRY METHOD 03/30/2024 8:27 PM EST [facility] Blood Venous blood specimen / Unknown Venipuncture / Unknown 03/30/2024 8:38 AM EST 03/30/2024 8:46 AM EST Bozena MAGUIRE LAB BLOOD ORDERABLES F inal Result Performing Organization Address [facility] Co de Phone Number [facility] [address] [place] [address], [place] [phone] * Free thyroxine with reflex to free triiodothyronine (03/30/2024 8:38 AM EST) Free T4 1.20 0.70 - 1.80 ng/dL LAB CHEMISTRY METHOD 03/30/2024 9:00 PM EST [facility] Blood Venous blood specimen / Unknown Venipuncture / Unknown 03/30/2024 8:38 AM EST 03/30/2024 8:46 AM EST Bozena MAGUIRE LAB BLOOD ORDERABLES F inal Result Performing Organization Address [facility] de Phone Number [facility] [address] [place] [address], [place] [phone] * Triiodothyronine free (03/30/2024 8:38 AM EST) T3, Free 301 230 - 420 pcg/dL LAB CHEMISTRY METHOD 03/30/2024 9:27 PM EST [facility] Blood Venous blood specimen / Unknown Venipuncture / Unknown 03/30/2024 8:38 AM EST 03/30/2024 8:46 AM EST Bozena MAGUIRE LAB BLOOD ORDERABLES F inal Result Performing Organization Address [facility] de Phone Number [facility] [address] [place] [address], [place] [phone] * Lipase (03/30/2024 8:38 AM EST) Lipase 56 13 - 75 unit/L LAB CHEMISTRY METHOD 03/30/2024 9:20 AM EST [facility] Blood Venous blood specimen / Unknown Venipuncture / Unknown 03/30/2024 8:38 AM EST 03/30/2024 8:46 AM EST us Jason Griffin DO LAB BLOOD ORDERABLES Final Res ult [facility] [address] [place] [address], * ECG-Annotated (03/30/2024) us Provider Onbase MD ECG ORDERABLES Final Result from Last 3 Months Additional Health Concerns Infection Onset Date Last Indicated Norovirus 03/31/2024 03/31/2024 Insurance MEDICARE [place] - [place] [facility] Advance Directives * Full Code - Default [...] currently active code status orders. Care Teams Carpenter And Joiner Relationship Specialty Start Date End Date Raji Amanda MD [address] [place] [address] [address] [place] [address] PCP - General Internal Medicine 03/30/24
== END 2024-06-02 13:59 | disposition home or self-care (01) ==
LOC: HO.MS 13:58
PROVIDERS: PCP Internal Medicine; Visit Provider Ophthalmology
PROC: (CPT 67805; principal; 2024-06-02 15:30)
DX: H00.15 Chalazion left lower eyelid (principal); H00.14 Chalazion left upper eyelid
CPT/HCPCS: 67805; J2004

== ENCOUNTER 2024-06-11 14:06 | Outpatient (AMB) | payer MEDICARE, SELFPAY ==
--- NOTE | 2024-06-11 14:11 | A.OFFPC_ITS ---
Vital Signs 06/11/24 14:14 Height 6 ft Weight 257 lb 4 oz BMI 34.9 BP 120/70 Blood Pressure Location Lt brachial Position Sitting Pulse 66 Pulse Source Pulse Oximeter Temp 97.1 F Temp Source Temporal Artery Scan Pulse Oximetry (%) 94 Oxygen Delivery Method Room Air Intake Visit Reasons: ETHAN Dr. Amanda Intake Note: Patient is here today for a physical and ETHAN from Dr Amanda. Complaint of cough after a cold that will not go away. Newsagent Required: No Mems Process Engineer: Not Required per policy Accompanied by: Self / Same As Patient Allergies No Known Allergies Allergy (Verified 06/14/24 23:17) Medication List - Last Reconciled 06/14/24 by CHRISTIANO Rey allopurinol 100 mg PO .QOD 90 days amoxicillin-pot clavulanate 875-125 mg 1 tab PO BID 7 days clonazepam 0.5 mg PO BID entecavir 1 tab PO DAILY fluticasone propionate 50 mcg/actuation 1 spray intranasal BID PRN 30 days hydrochlorothiazide 12.5 mg PO DAILY loratadine (Claritin) 10 mg PO DAILY PRN omeprazole 20 mg PO DAILY@0630 vitamin B6-vitamin E-magnesium 100 tabs PO DAILY Tobacco use date assessed: 06/11/24 Fall risk assessment: No Falls in past year Last assessed Fall Risk: 06/11/24 Dental Screening Dental Screen Date: 06/11/24 Did you have a dental visit in the last 12 months?: No Did you have a dental problem in the last 6 months where you did not have access to dental care?: No Was dental information given to patient?: No HPI ETHAN Dr. Amanda HPI Details The patient is a 78-year-old male, patient of Dr. Amanda, who retired. He is presenting primarily to transition care. He reports a chronic cough and persistent nasal congestion. The onset of the cough was approximately 10 days ago, with worsened symptoms noticeable during nighttime. The patient associates this persistent cough with postnasal drip and relates increased breathing difficulty and nasal congestion to this condition. Treatment has included [id number]-[id number] Robitussin without significant relief. Despite a previous viral infection that required hospitalization and was characterized by wheezing, the patient has had no recent episodes of significant respiratory distress. The patient's past medical history includes hospital admissions due to recurrent kidney stones, managed through procedures like stenting and lithotripsy. The patient continues under specialist care for a small renal calculus. Additional chronic conditions include restless leg syndrome, managed with clonidine; Hepatitis B, controlled with entecavir; and hip bursitis post-total hip replacement surgery producing significant left hip pain managed with cortisone injections. This patient also reports successful bilateral cataract surgeries with improved vision, though hearing deficit remains a concern. The patient maintains an active lifestyle, despite the current health issues and suggests a history of significant cardiovascular and renal evaluations. [facility] Medical History Preop exam for internal medicine Cirrhosis GERD (gastroesophageal reflux disease) Kidney stone Hepatitis B COVID-19 vaccine series completed Sleep apnea BPH (benign prostatic hyperplasia) Obesity Arthritis of left hip Anxiety Hip pain Surgical History History of total left hip arthroplasty History of lithotripsy H/O colonoscopy History of back surgery History of appendectomy History of tonsillectomy Family History Father No problems noted. Mother No problems noted. Daughter No problems noted. Social History Housing: House Are you a primary ocular care aide to a significant other at home: No Do you presently have visiting nurse or other home services: No Alcohol intake: never Patient Tobacco Use Status: Never used Tobacco Tobacco use type: Cigarette e-Cigarette/Vaping Use: Never Used Second Hand Smoke Exposure: No service: No 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al status: retired 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 Cognitive needs: No Hearing needs: No Vision needs: Yes Questionnaire PHQ-9 Over the last 2 weeks, how often have you been bothered by any of the following problems? 1. Little interest or pleasure in doing things: not at all 2. Feeling down, depressed, or hopeless: not at all 3. Trouble falling or staying asleep, or sleeping too much: not at all 4. Feeling tired or having little energy: not at all 5. Poor appetite or overeating: not at all 6. Feeling bad about yourself - or that you are a failure or have let yourself or your family down: not at all 7. Trouble concentrating on things, such as reading the newspaper or watching television: not at all 8. Moving or speaking so slowly that other people could have noticed. Or the opposite - being so fidgety or restless that you have been moving around a lot more than usual: not at all 9. Thoughts that you would be better off or of hurting yourself in some way: not at all Total score: 0 Depression Screening Interpretation: Negative Depression Screening Done: Yes 05773 - PHQ-9 Billing: Yes Source: Developed by Drs. Gene Villafuerte, Renu Acharya, Crescencio Corbin and colleagues, with an educational chris from [employer]. Thrive Questionnaire Date Thrive assessed: 06/09/24 I am a: Patient What is your living situation today?: I have a steady place to live Within the past 12 months, did the food you bought not last and you didn't have the money to get more?: Never true Within the past 12 months, did you worry whether your food would run out before you got money to buy more?: Never true Do you have trouble paying for medicines?: No Do you have trouble getting transportation to medical appointments?: No Do you have trouble paying your heating and electricity bill?: No Do you have trouble taking care of your child, family member or friend?: No Do you have trouble with day-to-day activities such as bathing, preparing meals, shopping, managing finances, etc.?: No Are you currently unemployed and looking for a job?: No Are you interested in more education?: No Please select the resources that you would like help with: None Currently or been in a relationship where the following occur: No concerns reported THRIVE Score: 0 AUDIT C Alcohol Use Questionnaire (AUDIT-C) 1. How often do you have a drink containing alcohol?: 2-4 times a month 2. How many drinks containing alcohol do you have on a typical day when you are drinking?: 1 or 2 3. How often do you have six or more drinks on one occasion?: Never Total Score: 2 MARCO ANTONIO-7 AMB Questionnaire MARCO ANTONIO-7 Date MARCO ANTONIO - 7 assessed: 06/11/24 Feeling nervous, anxious, or on edge: 0 = Not at all Not being able to stop or control worryin = Not at all Worrying too much about different things: 0 = Not at all Trouble relaxin = Not at all Being so restless that it is hard to sit still: 0 = Not at all Becoming easily annoyed or irritable: 0 = Not at all Feeling afraid as if something awful might happen: 0 = Not at all Total MARCO ANTONIO-7 score (0-4 normal; 5-9 mild; 10-14 moderate; 15-21 severe): 0 Source: Developed by Drs. Gene Villafuerte, Renu Acharya, Crescencio Corbin and colleagues, with an educational chris from [employer]. MARCO ANTONIO-7 Assessment Billing MARCO ANTONIO-7 Assessment Tool: MARCO ANTONIO-7 Assessment 51914 Review of Systems Const Denies headache(s) Eyes Denies loss of vision ENT Denies vertigo, Denies dizziness, Denies headache(s), Reports hearing loss (ongoing), Reports nasal congestion, Reports nasal discharge, Reports post nasal drip and Denies sore throat Card Denies chest pain, Denies leg edema, Denies lightheadedness and Reports other (increased difficulty breathing) Resp Reports cough, Denies hemoptysis, Denies wheezing and Reports other (increased difficulty breathing) GI Denies abdominal pain, Denies melena, Denies constipation, Denies diarrhea and Denies vomiting Denies dysuria, Denies urinary frequency and Denies urinary urgency Musc Reports arthralgias (left hip pain ongoing), Denies joint swelling, Denies numbness and Denies tingling Neuro Denies Abnormal speech present, Denies behavioral changes, Denies vertigo, Denies dizziness, Denies headache(s), Denies loss of vision, Denies memory loss, Denies numbness and Denies tingling Psych Denies anxiety, Denies behavioral changes, Denies depression, Denies memory loss and Denies panic attacks Jez/Lymph Denies easy bleeding and Denies easy bruising Aller/Immun Denies wheezing Physical exam (Primary Care) Vital Signs: Last Vital Signs Temp 97.1 F 06/11/24 14:14 Pulse 66 06/11/24 14:14 BP 120/70 06/11/24 14:14 Pulse Ox 94 06/11/24 14:14 Oxygen Delivery Method Room Air 06/11/24 14:14 BMI result Body Mass Index 34.9 Tobacco/Smoking Status: Tobacco use Status Tobacco use date assessed 06/11/24 06/11/24 14:20 Patient Tobacco Use Status Never used Tobacco 06/11/24 14:20 Tobacco use type Cigarette 06/11/24 14:20 e-Cigarette/Vaping Use Never Used 06/11/24 14:20 PHQ-9: PHQ-9 Score PHQ-9: Total score 0 06/11/24 15:25 Depression Screening Interpretation: Negative Thrive Assessment: Date of Thrive Assessment Date Thrive assessed 06/09/24 06/11/24 14:20 Currently or been in a relationship where the following occur: No concerns reported Const General: healthy appearing, no acute distress, alert and awake Nutritional Appearance: well nourished Orientation/consciousness: oriented to person, oriented to place and oriented to time HENMT Ears: TM's normal bilaterally General nose exam: Abnormal mucous membranes and turbinates present boggy and erythematous and Nasal discharge present purulent on the left Face and sinus: Yes sinus tenderness and Yes Facial tenderness on exam of face and sinuses (left maxillary) Mouth: Normal oral and palatal mucosa present Throat: Yes posterior oropharynx normal Eyes Conjunctivae: conjunctivae normal Sclerae: sclerae normal Pupils: Equal, round and reactive pupils present Neck Neck: Yes no lymphadenopathy and Yes no JVD Thyroid: Thyroid normal Carotids: no bruits Resp Effort & Inspection: normal respiratory effort and not tachypneic Auscultation: no crackles, no rales, no rhonchi and no wheezes Cardio Rate: regular rate Rhythm: regular rhythm Heart sounds: no murmurs and normal S1 and S2 GI Palpation (GI): Soft to palpation, nontender, no hepatomegaly and no splenomegaly Auscultation: normal bowel sounds General: Yes no CVA tenderness Back/Spine/Pelvis Back: no CVA tenderness Skin General skin exam: no rashes or lesions noted and dry skin Neuro General: oriented to person, oriented to place and oriented to time Cranial nerves: Yes Equal, round and reactive pupils present Speech: No Abnormal speech present Gait exam (Neuro): Normal gait present Motor exam (neuro): no tremor noted Extrem Right upper extremity: full ROM Left upper extremity: full ROM Right lower extremity: full ROM and hip/thigh; no edema Left lower extremity: full ROM and hip/thigh (left hip) Details: tenderness; no swelling; no edema Psych Mental Status: mental status grossly normal Speech and movement: Normal speech and movement present Affect: normal affect Attitude: cooperative Thought process: Normal thought process present Coding Level of Care Code Est Pt Level 4 (71940) Diagnoses Rhinosinusitis J32.9 Nasal congestion R09.81 Arthritis of left hip 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, unspecified cause, unspecified laterality M1A.0790 Gout site: foot Gout etiology: unspecified cause Chronicity: chronic Laterality: unspecified laterality Hepatitis B infection without delta agent without hepatic coma, unspecified chronicity B19.10 Viral hepatitis chronicity: unspecified Hepatic coma status: without hepatic coma Hepatitis delta agent presence: without delta-agent Central sleep apnea G47.31 Class 1 obesity due to excess calories with serious comorbidity and body mass index (BMI) of 34.0 to 34.9 in adult E66.811; E66.09; Z68.34 Obesity type: due to excess calories Obesity classification: adult class 1 (BMI 30 - 34.9) Serious obesity comorbidity presence: with serious comorbidity Body mass index: BMI 34.0-34.9 Additional Codes PHQ-9 - 49440 - PHQ-9 Billing: Yes ([id number]) MARCO ANTONIO-7 Assessment Billing - MARCO ANTONIO-7 Assessment Tool: MARCO ANTONIO-7 Assessment 39398 ([id number]) Time Spent (min) 42 Assessment & Plan Assessment & Plan (1) Rhinosinusitis: Code(s): J32.9 - Chronic sinusitis, unspecified Category: Medical (2) Nasal congestion: Code(s): R09.81 - Nasal congestion Category: Medical (3) Arthritis of left hip: Code(s): M16.12 - Unilateral primary osteoarthritis, left hip Category: Medical (4) Gout: Code(s): M10.9 - Gout, unspecified Category: Medical Qualifiers: Gout site: foot Gout etiology: unspecified cause Chronicity: chronic Laterality: unspecified laterality Qualified Code(s): M1A.0790 - Idiopathic chronic gout, unspecified ankle and foot, without tophus (tophi) (5) Hepatitis B: Code(s): B19.10 - Unspecified viral hepatitis B without hepatic coma Category: Medical Qualifiers: Viral hepatitis chronicity: unspecified Hepatic coma status: without hepatic coma Hepatitis delta agent presence: without delta-agent Qualified Code(s): B19.10 - Unspecified viral hepatitis B without hepatic coma (6) Central sleep apnea: Comment: CPAP titration study Code(s): G47.31 - Primary central sleep apnea Category: Medical (7) Obesity: Code(s): E66.9 - Obesity, unspecified Category: Medical Qualifiers: Obesity type: due to excess calories Obesity classification: adult class 1 (BMI 30 - 34.9) Serious obesity comorbidity presence: with serious comorbidity Body mass index: BMI 34.0-34.9 Qualified Code(s): E66.811 - Obesity, class 1; E66.09 - Other obesity due to excess calories; Z68.34 - Body mass index [BMI] 34.0-34.9, adult Plan The proposed treatment plan includes prescribing Augmentin for the management of suspected bacterial sinusitis contributing to the chronic cough. Intranasal corticosteroids and antihistamines are recommended for current nasal congestion and postnasal drip. The current management of Hepatitis B and gout will continue with respective medications. S/P Cortisone injections were used as needed for bursitis. The patient to follow up with orthopedics for ongoing management and recommendations. Reinforced a diet low in cholesterol and activity as tolerated. I advise regular follow-up with specialists for kidney monitoring and any necessary interventions. Patient was informed and verbally consented to the use of an ambient scribe for clinic note documentation during this visit. Orders: Orders TSH reflex Free T4 06/11/24 Z00.00 - Encounter for general adult medical examination without abnormal findings Glucose Fasting 06/11/24 Z00.00 - Encounter for general adult medical examination without abnormal findings Lipid Panel 06/11/24 Z00.00 - Encounter for general adult medical examination without abnormal findings Medications: New amoxicillin-pot clavulanate 875-125 mg 1 tab PO BID 7 days 14 tabs 0RF J32.9 - Chronic sinusitis, unspecified fluticasone propionate 50 mcg/actuation administer into each nostril 1 spray intranasal BID 30 days PRN 16 grams 0RF nasal congestion R09.81 - Nasal congestion loratadine (Claritin) 10 mg PO DAILY PRN 30 tabs 0RF allergy symptoms Patient Instructions: - Start the prescribed Augmentin as directed. - Use a nasal spray and antihistamines as needed for congestion. - Monitor for any worsening symptoms or side effects. - Follow up with specialists for kidney and respiratory conditions. - Keep hydrated to help prevent kidney stones. - Continue regular exercise and a balanced diet. - Maintain current medication regimen for Hepatitis B and gout.
[2024-06-11 14:14] VITALS: BP 120/70; PULSE 66; TEMP 36.2; O2SAT 94; BMI 34.9
--- OUTSIDE RECORDS SUMMARY | 2024-06-11 16:52 | XMS_ITS | Continuity of Care Document ---
Author Organization [facility] Address [address] [place] [address] Phone Care Team Providers Care Dehydrogenation Converter Helper Name Role Phone Oliver PRINGLE, RVT, JOSE [...] Mins- [place] & [place] [facility] MD TREVINO, [address] [place] [address] Dr Blandon [address], [id number], [place] tel:[phone] [facility] Venous insufficiency (chronic) (peripheral)Lo calized edema Oct-0 4 Oliver PRINGLE RVT, RPVI Robert. [address], [address], [place], [id number] , [place]. tel:[phone] Referring Provider: Raji Amanda MD, [address] [facility] SUITE [facility], [place], [address]. tel:[phone] [facility], [address] [place] [address] Dr [address] [facility] [address], [id number], [place] tel:[phone] [facility] Chronic venous hypertension (idiopathic) with other complications of bilateral lower extremity Nov-0 4 Oliver PRINGLE RVT, RPVI Robert. [address] [place] [address], Suite [facility], [place], [id number] , [place]. tel:[phone] Referring Provider: Raji Amanda MD, [address] [facility] SUITE [facility], [place], [address]. tel:[phone] [facility], [address] [place] [address] Dr Blandon [address]Rohan [place], [id number], [place] tel:[phone] [facility] Encounter for follow-up examination after completed treatment for conditions other than malignant neChronic venous hypertension (idiopathic) with other complications of left lower extremity 4 Oliver PRINGLE RVT, JOSE DAVID Mills. [facility], [place], [id number] , [place]. tel:[phone] Referring Provider: Gene Boyd MD, RVT, JOSE DAVID, [address] [place] [address] Suite [facility], [place], [address] . tel:[phone] [facility], [address] [place] [address] [address]Rohan [place], [id number], [place] tel:[phone] [facility] [place] Varicose veins of left lower extremity with other complications 4 Oliver PRINGLE RVT, RPVI Robert. [address] [place] [address], [address], [place], [id number] , [place]. [phone] [facility], [address] [place] [address] [address]Rohan [place], [id number], [place] tel:[phone] [facility] [place] Varicose veins of left lower extremity with other complications 4 Oliver PRINGLE RVT, RPVI Robert. [address] [place] [address], [place] [address], [place], [id number] , [place]. [phone] Referring Provider: Gene Boyd MD, RVT, RPVI, [address] [place] [address] [address], [place], [address] . tel:[phone] [facility], [address] [place] [address] [facility] [address] 1000Rohan [place], [id number], [place] tel:[phone] [facility] [place] Encounter for follow-up examination after completed treatment for conditions other than malignant nePain in right leg 4 Oliver PRINGLE RVT, RPVI Robert. [address] [place] [address], [address], [place], [id number] , [place]. [phone] Referring Provider: Gene Boyd MD, RVT, JOSE DAVID, [address] [place] [address] [address], [place], [address] . tel:[phone] [facility], [address] [place] [address] Dr Blandon [address] 1000Rohan [place], [id number], [place] tel:[phone] [facility] [place] No Information 4 Oliver PRINGLE RVT, RPVI Robert. [address] [place] [address], [facility] [place] [place], [id number] , [place]. [phone] [facility], [address] [place] [address] Dr Blandon 999Rohan [place], [id number], [place] tel:[phone] [facility] [place] Varicose veins of right lower extremity with other complications 4 Oliver PRINGLE RVT, RPVI Robert. [address] [place] [address], [place], [id number] , [place]. tel:[phone] Offic/outpt E&m Estab 5 Min Trial- Telemedicine CT & [place] [facility], [address] [place] [address] Dr Blandon 1000Rohan [place], [id number], [place] tel:[phone] [facility] [place] Chronic venous hypertension (idiopathic) with other complications of bilateral lower extremityCramp and spasmRestless legs syndrome 4 Oliver PRINGLE RVT, RPVI Robert. [address] [place] [address], [place], [id number] , [place]. tel:[phone] Office/Oupt E&M New Pt 45 Mins- CT & [place] [facility], [address] [place] [address] Dr Blandon 1000Rohan [place], [id number], [place] tel:[phone] [facility] [place] Varicose veins of bilateral lower extremities with other complicationsR estless legs syndromeCramp and spasmLocalized edema 4 Oliver PRINGLE RVT, RPVI Robert. [address] [place] [address], [place], [id number] , [place]. tel:[phone] [facility], [address] [place] [address] Dr Blandon 1000Rohan [place], [id number], [place] tel:[phone] [facility] [place] Varicose veins of bilateral lower extremities with pain 4 Oliver PRINGLE RVT, RPVI Robert. [address] [place] [address], [facility] [place], [id number] , [place]. tel:[phone] Referring Provider: Gene Boyd MD, RVT, RPVI, [address], [facility] [place], [address] . tel:[phone] Family History Family Member Type Diagnosis Age At Onset No Information Payers Payer name Insurance type Covered green party ID Authoriza tion(s) Medicare MEHDI SHRUTHI [id number] BCBS MEHDI [id number] Medical Assistance MEHDI SHUKLA [id number] Social History Type Description Quantity Date Captured [...]
--- OUTSIDE RECORDS SUMMARY | 2024-06-11 16:52 | XMS_ITS | Clinical Summary ---
Author Organization [place] [facility] Address [address] [place] [address] Phone Care Team Providers Care Flight Dispatcher Name Role Phone [facility] Primary Care Provider [phone] [facility] Unavailable [phone] Reason for Visit and Chief Complaint Established Patient Plan of Treatment 1. Continue OT/PT for right ankle. 2. Gait training with full weight right lower extremity. 3. Range of motion right ankle. 4. Activities of daily living. 5. Strengthening right ankle. 6. Return to office in 3 months for final visit and repeat x-ray right ankle - Last Documented On 07/02/2023 10:04AM ; [facility] Pending Tests Order Diagnosis Results Due Ordering Tarah pitt Follow Up - Appointment 3 Months Displ bi malleol fx r low leg, subs for clos fx w routn heal 07/02/23 Tavo Blanco MD Last Documented On 10:04AM ; [facility], Assessments Includes: Assessments from this encounter No Assessments Recorded Medical Equipment - Implanted Devices Includes: Current Devices No Medical Equipment Recorded Medications Includes: Medications discussed during this encounter and other current Medications Current Medications (continue as prescribed) Tylenol Oral Tablet 07/02/2023 Provider: Diagnosis: Last Documented On 8:15AM By Cam Levy ; [facility] Medications Administered Includes: Administered Medications from this encounter No Administered Medications Recorded Vital Signs Includes: Vital Signs from this encounter Vital Name 07/02/2023 08:13A Blood Pressure Sitting (mmHg) 121/72 Pulse Rate-Sitting (bpm) 116 Temp-Temporal 97.1 Weight (lb) 252 Oxygen Saturation (%) 95 Last Documented: On 07/02/2023 8:14AM ; [facility] Results Includes: Results discussed during this [...] Time Diagnosis Established Patient Tavo Blanco MD [facility] 07/02/19 24 8:20AM 8:27AM Insurance Includes: Active Insurance Policies Plan Name Member ID Group # Subscriber Relationship Effect yelena Dates 1 - Medicare Part B [facility] [id number] [facility] Self 2 - Medex [id number] Gene Cordero Self 08/27/2015 - Unknown Clinical Notes Includes: Clinical Notes from this encounter * Progress note Date Encounter Last Documented by 07/02/2023 Established Patient Leandro espinoza on 07/02/2023; 10:04 AM, Tavo Blanco MD; [facility] Chief Complaint Closed displaced bimalleolar fracture [...]
--- OUTSIDE RECORDS SUMMARY | 2024-06-11 16:52 | XMS_ITS | Clinical Summary ---
Author Organization [place] [facility] Address [address] [place] [address] Phone Care Team Providers Care Ventilated Rib Fitter Name Role Phone Troy [facility] Primary Care Provider [phone] [facility] Unavailable [phone] Reason for Visit and Chief Complaint Established Patient Plan of Treatment Pending Tests Order Diagnosis Results Due Ordering P rovider Follow Up - Appointment PRN Displ bi malleol fx r low leg, subs for clos fx w routn heal 10/02/23 Marcell Chase MD Last Documented On 4 7:46AM ; [facility] Assessments Includes: Assessments from this encounter No Assessments Recorded Medical Equipment - Implanted Devices Includes: Current Devices No Medical Equipment Recorded Medications Includes: Medications discussed during this encounter and other current Medications Current Medications (continue as prescribed) Tylenol Oral Tablet 07/02/2023 Provider: Diagnosis: Last Documented On 4 8:15AM By Cam Levy ; [facility] Medications Administered Includes: Administered Medications from this encounter No Administered Medications Recorded Vital Signs Includes: Vital Signs from this encounter Vital Name 10/02/2023 07:44A Blood Pressure Sitting (mmHg) 136/84 Pulse Rate-Sitting (bpm) 69 Temp-Temporal 97.1 Weight (lb) 252 Oxygen Saturation (%) 97 Last Documented: On 10/02/2023 7:44AM ; [facility] Results Includes: Results discussed during this encounter [...] Of Ankle, minimum of 3 views (Right) 35212 Displ bimalleol fx r low leg, subs for clos fx w routn heal [facility]cell Chase [facility] 10/02/2023 Last Documented On 4 2:11PM ; [facility] Medical History Includes: Medical History addressed during [...] Time Diagnosis Established Patient Marcell Chase [facility] 10/02/19 24 8:00AM 7:44AM Insurance Includes: Active Insurance Policies Plan Name Member ID Group # Subscriber Relationship Effect yelena Dates 1 - Medicare Part B [facility] [id number] Gene [employer] Self 2 - Medex [id number] Gene [employer] Self 08/27/2015 - Unknown Clinical Notes Includes: Clinical Notes from this encounter * Progress note Date Encounter Last Documented by 10/02/2023 Established Patient Leandro espinoza on 10/02/2023; 7:46 AM, Marcell Chase MD; [facility] Current Medication - Tylenol Oral Tablet [...]
--- OUTSIDE RECORDS SUMMARY | 2024-06-11 16:53 | XMS_ITS | Data Portability ---
Author Organization [facility] Address [address] [place] [address] Care Team Providers Care Er Nurse Name Role Phone DONNA FLOWERS Primary Care [...] surveillance status post left total hip arthroplasty. [email or web address] Not available 08/21/2023 07:30:04 Plan of Treatment Reminders Order Date Submit Date Provider Last Modified By Organization Details Last Modified Time Details Appointments None record ed. Lab None record ed. Referral None record ed. Procedures None record ed. Surgeries None record ed. Imaging XR, hip, unilat eral, 2 or 3 view - 204 [place] 2021 024 08/17/19 24 [facility], [address], [facility] [address], [place], [address], 4 08:58:16 Medication Orders None record ed. Patient TargetsNo targets recorded. Patient InstructionsNo instructions recorded. Reason for Referral None Reported. Results Created Date Observation Date Name Description Value Unit Range Abnormal Flag Note LastModifiedBy Organization Detail LastModifiedTime 08/17/19 24 08/17/2023 XR, hip, unila teral , 2 or 3 view http:/ [email or web address] ?Encry pted=s hAaTro YD8dLq bEUv6g %2BXZw aYqtaq 0bqfl% 2Fg9IQ a4ajBk vP9nXo QUaueC m3YtLR FvZlgJ JJ8mAn HZtai3 8v1285 AC0KuY nmAUqT eUC8mr 84%3D INTERFACE [facility] [address], [place], [address], 08/17/2023 14:30:49 08/17/19 24 08/17/2023 XR, hip, unila teral , 2 or 3 view http:/ [email or web address] ?Encry pted=s hAaTro YD8dLq bEUv6g %2BXZw aYqtaq 0bqfl% 2Fg9IQ a4ajBk vP9nXo QUaueC m3YtLR FvZlgJ JJ8mAn HZtai3 2d0498 AC0KuY nmAUqT eUC8mr 84%3D INTERFACE [facility] [address], [place], [address], 08/17/2023 14:30:51 10/27/19 24 10/18/2022 imagi ng/di agnos tic resul t No observ ation record ed. [email or web address] Not Available 09/28 10:43:11 Result Notes None recorded. Procedures Surgical History Date Name Laterality Status Provider Name and Address Organization Details Recorded Time Hip Kenalog 1cc Injection, L/R completed Ritchie Miller MD [address], [place], [address], [facility] 08/21/2023 07:30:14 Imaging Results Imaging Date Name Status LastModified by Organiz ation Details LastModified Time 08/17/2023 XR, hip, unilateral, 2 or 3 view completed INTERFACE [facility] [address], [place], [address], 08/17/2023 14:30:49 08/17/2023 XR, hip, unilateral, 2 or 3 view completed INTERFACE [facility] [address], [place], [address], 08/17/2023 14:30:51 10/18/2022 imaging/diag nostic result completed [...] Updated DateTime 08/17/2023 180.34 cm OLGA MASTERSON [facility] 08/17/2023 14:22:04 Date Recorded Body height Body mass index (BMI) Body weight Provider Name and Address Organization Details Last Updated DateTime 10/19/2023 180.34 cm 35.4 kg/m2 507554.46 g Anna Lawrence [facility] 10/19/2023 09:24:31 Date Recorded Body height Body mass index (BMI) Body weight Provider Name and Address Organization Details Last Updated DateTime 03/14/2024 182.88 cm 34.6 kg/m2 205235.05 g DONNIE MANNING [facility] 03/14/2024 08:06:08 Social History None recorded. Functional Status None recorded. Mental Status None recorded. Family History Nothing Reported. Medical History No medical history recorded. Past Encounters Encounter ID Performer Location Encounter Start Date Encounter Closed Date Diagnosis/Indication Diagnosis SNOMED-CT Code Diagnosis ICD10 Code Diagnosis Note [id number] MD Humberto Villegas [address] floor [address] [place] [address] 08/17/2023 14:06:06 09/10/2023 08:58:16 History of total replacement of left hip joint 3927288804 741492 Z96.642 Trochanter ic bursitis of left hip 1324730569 29683 M70.62 [id number] MD Humberto Camacho [address] floor [address] [place] [address] 10/19/2023 09:10:03 11/13/2023 10:21:40 Trochanteric bursitis of left hip [id number] 78419 M70.62 [id number] MD OSMAN Camacho - [address] [place] [place] [address] 03/14/2024 07:41:37 03/28/2024 15:51:44 Trochanteric bursitis of left hip 2645995200 84656 M70.62 Health Concerns Section Related Observation LastModified by Organization Detai ls LastModified Time None Recorded Concern Status LastModified by Organization Details LastModified Time None Recorded Advance Directives Directive None Recorded Payers Encounter Date Sequence Insurance Name Policy Number Policy Rust Covered Member ID Rust Member ID Guarantor Name 08/17/2023 2 [place] [id number] Gene Cordero [id number] Gene Mobleyshannan 08/17/2023 1 [place] [employer] Gene Cordero [id number] Gene Mobleyshannan 10/19/2023 2 [place] [id number] Gene Cordero [id number] Gene Itzcholinda 10/19/2023 1 [place] Gene Cordero [id number] Gene Itzcholinda 03/14/2024 2 [place] [id number] Gene Cordero [id number] Gene Itzcholinda 03/14/2024 1 [place] Gene Cordero [id number] Gene Cordero Notes Date Note Type [...] 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 HPI: Patient is a 76-year-old male [...] injection. We discussed the experimental nature and uqf-jf-ptmvxl cost with PRP injection. Third option would [...] He was provided contact information for our district plant engineer and can call if he would like to start the booking process. 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 We discussed the experimental nature and jds-ij-pekdyr cost with PRP injection. Third option would [...] start the booking process. Wong Velázquez MD [address] [place] [address] [address], [place], [address], [facility] 03/14/2024 18:40:13
--- OUTSIDE RECORDS SUMMARY | 2024-06-11 16:53 | XMS_ITS | Clinical Summary ---
Author Organization [place] [facility] Address [address] [place] [address] Phone Care Team Providers Care Supervisor Train Operations Name Role Phone [facility] Primary Care Provider [phone] [facility] Un[facility] [phone] Reason for Visit and Chief Complaint Post [...] Documented On 8:15AM By Cam Levy ; [facility] Medications Administered Includes: Administered Medications [...] Post Op Visit/Follow Up Tobin Hui MD [facility] 04/19/19 24 9:20AM 9:58AM Insurance Includes: Active Insurance Policies Plan Name Member ID Group # Subscriber Relationship Effect yelena Dates 1 - Medicare Part B [place] [id number] Gene Cordero Self 2 - Medex [id number] Gene Cordero Self 08/27/2015 - Unknown Clinical Notes Includes: Clinical Notes from this encounter * Progress note Date Encounter Last Documented by 04/19/2023 Post Op Visit/Follow Up Last doc umented on 04/19/2023; 9:59 AM, Tobin Hui MD; [facility], Chief Complaint CC: Right ankle bimalleolar fracture [...]
--- OUTSIDE RECORDS SUMMARY | 2024-06-11 16:53 | XMS_ITS ---
Care Plan - [facility] Created on: June 11, 2024 Gene Cordero : [id number] Sex: Male Author Organization [place] [facility] Address [address] [place] [address] Phone Care Team Providers Care Senior Svp Name Role Phone Troy Horta Primary Care Provider [phone] [facility] Unavailable [phone]
--- OUTSIDE RECORDS SUMMARY | 2024-06-11 16:53 | XMS_ITS | Clinical Summary ---
Author Organization [place] [facility] Address [address] [place] [address] Phone Care Team Providers Care Harness Placer Name Role Phone Troy [facility] Primary Care Provider [phone] [facility] Unavailable [phone] Reason for Visit and Chief Complaint Post Op Visit/Follow Up Plan of Treatment Pending Tests Order Diagnosis Results Due Ordering P rovider Follow Up - Appointment 1 Month Pain in right ankle and joints of right foot 05/21/23 Jason Ramirez MD Last Documented On 4 9:48AM ; [facility] Assessments Includes: Assessments from this encounter No Assessments Recorded Medical Equipment - Implanted Devices Includes: Current Devices No Medical Equipment Recorded Medications Includes: Medications discussed during this encounter and other current Medications Current Medications (continue as prescribed) Tylenol Oral Tablet 07/02/2023 Provider: Diagnosis: Last Documented On 4 8:15AM By Cam Levy ; [facility] Medications Administered Includes: Administered Medications from this [...] Post Op Visit/Follow Up Jason Ramirez MD [place] [facility], 05/21/19 24 9:20AM 9:43AM Insurance Includes: Active Insurance Policies Plan Name Member ID Group # Subscriber Relationship Effect yelena Dates 1 - Medicare Part B [facility] [id number] Gene Cordero Self 2 - Medex [id number] Gene Cordero Self 08/27/2015 - Unknown Clinical Notes Includes: Clinical Notes from this encounter * Progress note Date Encounter Last Documented by 05/21/2023 Post Op Visit/Follow Up Last doc umented on 05/21/2023; 9:48 AM, Jason Ramirez MD; [place] [facility] Plan StartCited - Pain in right ankle [...]
--- OUTSIDE RECORDS SUMMARY | 2024-06-11 16:53 | XMS_ITS | Clinical Summary ---
Author Organization [facility] Address [address] [place] [address] Phone Care Team Providers Care Steam Setter Name Role Phone Raji Amanda MD Primary Care Provider [phone] Allergies No known active allergies Medications allopurinoL [...] - 05/21/2024 11:59 PM EDT Hospital Encounter [facility] CT Scan [address] [place] [address] Lung nodule seen on imaging study Discharge Disposition: Home or Self Care 04/23/2024 1:09 PM EST - 04/23/2024 11:59 PM EST Hospital Encounter [facility] Xray [address] [place] [address] Wheezing Discharge Disposition: Home or Self Care 03/30/2024 8:24 AM EST - 03/31/2024 1:30 PM EST Hospital Encounter [facility] Intermediate Care Unit [address] [place] [id number] Leodan Snider MD Ishtiaq, Rizwan, MD Kela, [...] for your loved ones. For example, child and youth program assistant or elderly care for an older adult? [...] Signed Date: 05/27/2024 10:22 ET Workstation ID: [id number] Transcribed By: Self Edit Transcribed Date: 05/27/2024 [...] Signed Date: 05/27/2024 10:22 ET Workstation ID: [id number] Transcribed By: Self Edit Transcribed Date: 05/27/2024 10:06 ET us Mansi MAGUIRE IMG CT PROCEDURES Final Re sult * XR Chest 2 Views (04/23/2024 1:31 PM EST) Anatomical Region Laterality Modality Body Radiographic Citlali ging 04/23/2024 1:42 PM EST Impressions 04/23/2024 1:43 PM EST Impression: No active pulmonary process identified. Telerad TING ([id number]) -------- FINAL REPORT -------- Dictated By: Melisa Sierra Dictated Date: 04/23/2024 13:42 ET Assigned Physician: Melisa Sierra Reviewed and Electronically Signed By: Melisa Sierra Signed Date: 04/23/2024 13:43 ET Workstation ID: [id number] Transcribed By: Self Edit Transcribed Date: 04/23/2024 [...] No active pulmonary process identified. Telerad PA ([id number]) -------- FINAL REPORT -------- Dictated By: Melisa Sierra Dictated Date: 04/23/2024 13:42 ET Assigned Physician: Melisa Sierra Reviewed and Electronically Signed By: Melisa Sierra Signed Date: 04/23/2024 13:43 ET Workstation ID: [id number] Transcribed By: Self Edit Transcribed Date: 04/23/2024 13:42 ET us Crow Flores MD IMG XR PROCEDURES Final Resu lt * (ABNORMAL) CBC auto differential (03/31/2024 6:05 AM EST) Only the most recent of2 resultswithin the time period is included. WBC 4.0(L) 4.8 - 10.8 K/mcL LAB HEMETOLOGY METHOD 03/31/2024 8:24 AM EST [facility] RBC 4.30(L) 4.50 - 5.50 M/mcL LAB HEMETOLOGY METHOD 03/31/2024 8:24 AM [facility] Hemoglobin 11.8(L) 13.5 - 17.5 g/dL LAB HEMETOLOGY METHOD 03/31/2024 8:24 AM [facility] Hematocrit 37.1(L) 42.0 - 54.0 % LAB HEMETOLOGY METHOD 03/31/2024 8:24 AM [facility] MCV 87.1 79.0 - 98.0 FL LAB HEMETOLOGY METHOD 03/31/2024 8:24 AM [facility] MCH 27.7 27.0 - 32.0 pcg LAB HEMETOLOGY METHOD 03/31/2024 8:24 AM [facility] MCHC 31.8(L) 32.0 - 37.0 g/dL LAB HEMETOLOGY METHOD 03/31/2024 8:24 AM [facility] RDW 15.6(H) 11.0 - 15.0 % LAB HEMETOLOGY METHOD 03/31/2024 8:24 AM [facility] Platelets 88(L) 130 - 400 K/mcL LAB HEMETOLOGY METHOD 03/31/2024 8:24 AM [facility] Comment:reviewed by slide MPV 12.1(H) 7.0 - 11.0 FL LAB HEMETOLOGY METHOD 03/31/2024 8:24 AM [facility] NRBC 0.0 <1.0 % LAB HEMETOLOGY METHOD 03/31/2024 8:24 AM [facility] NRBC Absolute 0.00 <0.10 K/mcL LAB HEMETOLOGY METHOD 03/31/2024 8:24 AM [facility] Neutrophils Relative 79.3 % LAB HEMETOLOGY METHOD 03/31/2024 8:24 AM [facility] Lymphocytes Relative 9.9 % LAB HEMETOLOGY METHOD 03/31/2024 8:24 AM [facility] Monocytes Relative 10.4 % LAB HEMETOLOGY METHOD 03/31/2024 8:24 AM [facility] Eosinophils Relative 0.0 % LAB HEMETOLOGY METHOD 03/31/2024 8:24 AM [facility] Basophils Relative 0.2 % LAB HEMETOLOGY METHOD 03/31/2024 8:24 AM [facility] Immature Granulocytes Relative 0.2 % LAB HEMETOLOGY METHOD 03/31/2024 8:24 AM [facility] Neutrophils Absolute 3.20 1.50 - 7.00 K/mcL LAB HEMETOLOGY METHOD 03/31/2024 8:24 AM [facility] Lymphocytes Absolute 0.40(L) 1.00 - 5.00 K/mcL LAB HEMETOLOGY METHOD 03/31/2024 8:24 AM [facility] Monocytes Absolute 0.42 0.20 - 1.00 K/mcL LAB HEMETOLOGY METHOD 03/31/2024 8:24 AM [facility] Eosinophils Absolute 0.00 0.00 - 0.50 K/mcL LAB HEMETOLOGY METHOD 03/31/2024 8:24 AM [facility] Basophils Absolute 0.01 0.00 - 0.20 K/mcL LAB HEMETOLOGY METHOD 03/31/2024 8:24 AM [facility] Immature Granulocytes Absolute 0.01 0.00 - 0.03 K/mcL LAB HEMETOLOGY METHOD 03/31/2024 8:24 AM [facility] Blood Venous blood specimen / Unknown Venipuncture / Unknown 03/31/2024 6:05 AM EST 03/31/2024 7:14 AM EST us Leland Esteban MD LAB BLOOD ORDERABLES Final Res ult [facility] [address] [place] [address], [place] [phone] * (ABNORMAL) Magnesium (03/31/2024 6:05 AM EST) Pathologist [facility] Magnesium 1.7(L) 1.9 - 2.6 mg/dL LAB CHEMISTRY METHOD 03/31/2024 7:52 AM EST [facility] Blood Venous blood specimen / Unknown Venipuncture / Unknown 03/31/2024 6:05 AM EST 03/31/2024 7:14 AM EST Leland Esteban MD LAB BLOOD ORDERABLES Final Res ult Performing Organization Address [facility]/ZIP Co de Phone Number [facility] [address] [place] [address], * (ABNORMAL) Comprehensive metabolic panel (03/31/2024 6:05 AM EST) Only the most recent of2 resultswithin the time period is included. Pathologist [facility] Sodium 137 133 - 145 mmol/L LAB CHEMISTRY METHOD 03/31/2024 8:23 AM [facility] Potassium 3.8 3.5 - 5.5 mmol/L LAB CHEMISTRY METHOD 03/31/2024 8:23 AM [facility] Chloride 108 96 - 110 mmol/L LAB CHEMISTRY METHOD 03/31/2024 8:23 AM [facility] CO2 27 21 - 32 mmol/L LAB CHEMISTRY METHOD 03/31/2024 8:23 AM [facility] Anion Gap 2(L) 3 - 11 LAB CHEMISTRY METHOD 03/31/2024 8:23 AM [facility] Glucose 90 70 - 100 mg/dL LAB CHEMISTRY METHOD 03/31/2024 8:23 AM [facility] BUN 20 5 - 25 mg/dL LAB CHEMISTRY METHOD 03/31/2024 8:23 AM [facility] Creatinine 0.99 0.70 - 1.30 mg/dL LAB CHEMISTRY METHOD 03/31/2024 8:23 AM [facility] eGFR 77 >=60 mL/min/1. 73m2 LAB CHEMISTRY METHOD 03/31/2024 8:23 AM [facility] Comment:Calculation based on the??Chronic Kidney Disease Epidemiology Collaboration (CKD-EPI) equation refit??without adjustment for race. BUN/Creatinine Ratio 20.2 LAB CHEMISTRY METHOD 03/31/2024 8:23 AM [facility] Calcium 7.9(L) 8.5 - 10.5 mg/dL LAB CHEMISTRY METHOD 03/31/2024 8:23 AM [facility] AST (SGOT) 29 10 - 42 unit/L LAB CHEMISTRY METHOD 03/31/2024 8:23 AM [facility] ALT (SGPT) 24 10 - 60 unit/L LAB CHEMISTRY METHOD 03/31/2024 8:23 AM [facility] Alkaline Phosphatase 72 42 - 121 unit/L LAB CHEMISTRY METHOD 03/31/2024 8:23 AM [facility] Total Protein 5.7(L) 6.0 - 8.0 g/dL LAB CHEMISTRY METHOD 03/31/2024 8:23 AM [facility] Albumin 2.9(L) 3.2 - 5.0 g/dL LAB CHEMISTRY METHOD 03/31/2024 8:23 AM [facility] Total Bilirubin 1.3 0.0 - 1.4 mg/dL LAB CHEMISTRY METHOD 03/31/2024 8:23 AM [facility] Blood Venous blood specimen / Unknown Venipuncture / Unknown 03/31/2024 6:05 AM EST 03/31/2024 7:14 AM EST Mansi MAGUIRE LAB BLOOD ORDERABLES Final Result [facility] [address] [place] [address], [place] [phone] * (ABNORMAL) Basic metabolic panel (03/31/2024 6:05 AM EST) Sodium 139 133 - 145 mmol/L LAB CHEMISTRY METHOD 03/31/2024 7:52 AM [facility] Potassium 3.8 3.5 - 5.5 mmol/L LAB CHEMISTRY METHOD 03/31/2024 7:52 AM [facility] Chloride 108 96 - 110 mmol/L LAB CHEMISTRY METHOD 03/31/2024 7:52 AM [facility] CO2 27 21 - 32 mmol/L LAB CHEMISTRY METHOD 03/31/2024 7:52 AM [facility] Anion Gap 4 3 - 11 LAB CHEMISTRY METHOD 03/31/2024 7:52 AM [facility] Glucose 93 70 - 100 mg/dL LAB CHEMISTRY METHOD 03/31/2024 7:52 AM [facility] BUN 19 5 - 25 mg/dL LAB CHEMISTRY METHOD 03/31/2024 7:52 AM [facility] Creatinine 0.99 0.70 - 1.30 mg/dL LAB CHEMISTRY METHOD 03/31/2024 7:52 AM [facility] eGFR 77 >=60 mL/min/1. 73m2 LAB CHEMISTRY METHOD 03/31/2024 7:52 AM [facility] Comment:Calculation based on the??Chronic Kidney Disease Epidemiology Collaboration (CKD-EPI) equation refit??without adjustment for race. BUN/Creatinine Ratio 19.2 LAB CHEMISTRY METHOD 03/31/2024 7:52 AM [facility] Calcium 7.9(L) 8.5 - 10.5 mg/dL LAB CHEMISTRY METHOD 03/31/2024 7:52 AM [facility] Blood Venous blood specimen / Unknown Venipuncture / Unknown 03/31/2024 6:05 AM EST 03/31/2024 7:14 AM EST us Leland Esteban MD LAB BLOOD ORDERABLES Final Res ult [facility] [address] [place] [address], [place] [phone] * (ABNORMAL) Gastrointestinal pathogens molecular study (03/31/2024 12:39 AM EST) Campylobacter Detection by PCR Not Detected Not Detected LAB MICROBIOLOGY METHOD 5 2:10 AM EST [facility] Plesiomonas shigelloides Detection by PCR Not Detected Not Detected LAB MICROBIOLOGY METHOD 5 2:10 AM EST [facility] Salmonella Detection by PCR Not Detected Not Detected LAB MICROBIOLOGY METHOD 5 2:10 AM EST [facility] Vibrio Detection by PCR Not Detected Not Detected LAB MICROBIOLOGY METHOD 5 2:10 AM EST [facility] Vibrio cholerae Detection by PCR Not Detected Not Detected LAB MICROBIOLOGY METHOD 5 2:10 AM EST [facility] Yersinia enterocolitica Detection by PCR Not Detected Not Detected LAB MICROBIOLOGY METHOD 5 2:10 AM EST [facility] Enteroaggregative E coli EAEC Detection by PCR Not Detected Not Detected LAB MICROBIOLOGY METHOD 5 2:10 AM EST [facility] Enteropathogenic E coli EPEC Detection Not Detected Not Detected LAB MICROBIOLOGY METHOD 5 2:10 AM EST [facility] Enterotoxigenic E coli ETEC LTST Detection Not Detected Not Detected LAB MICROBIOLOGY METHOD 5 2:10 AM EST [facility] Shiga-like toxin producing E coli STEC STX1 STX2 Det Not Detected Not Detected LAB MICROBIOLOGY METHOD 5 2:10 AM EST [facility] Shigella Enteroinvasive E coli EIEC Detection Not Detected Not Detected LAB MICROBIOLOGY METHOD 5 2:10 AM [facility] Cryptosporidium Detection by PCR Not Detected Not Detected LAB MICROBIOLOGY METHOD 5 2:10 AM [facility] Cyclospora cayetanensis Detection by PCR Not Detected Not Detected LAB MICROBIOLOGY METHOD 5 2:10 AM [facility] Entamoeba histolytica Detection by PCR Not Detected Not Detected LAB MICROBIOLOGY METHOD 5 2:10 AM [facility] Giardia lamblia Detection by PCR Not Detected Not Detected LAB MICROBIOLOGY METHOD 5 2:10 AM [facility] Adenovirus F 40 41 Detection by PCR Not Detected Not Detected LAB MICROBIOLOGY METHOD 5 2:10 AM [facility] Astrovirus Detection by PCR Not Detected Not Detected LAB MICROBIOLOGY METHOD 5 2:10 AM [facility] Norovirus GI GII Detection by PCR Detected(A ) Not Detected LAB MICROBIOLOGY METHOD 5 2:10 AM [facility] Sapovirus Detection by PCR Not Detected Not Detected LAB MICROBIOLOGY METHOD 5 2:10 AM [facility] Rotavirus A Detection by PCR Not Detected Not Detected LAB MICROBIOLOGY METHOD 5 2:10 AM [facility] Stool Rectum structure / Unknown Non-blood Collection / Unknown 03/31/2024 12:39 AM EST 03/31/2024 12:48 AM [facility] - 03/31/2024 2:10 AM EST [...] - GENE RAL ORDERABLES Final Result [facility] [address] [place] [address], [place] [phone] * CT Abdomen Pelvis w Contrast (03/30/2024 [...] of2 resultswithin the time period is included. [facility] Culture, Blood No growth at 5 days 04/04/2024 11:01 PM EST [facility] Blood Venous blood specimen / Unknown Venipuncture / Unknown 03/30/2024 9:37 PM EST 03/30/2024 10:06 PM EST Leland Esteban MD LAB MICROBIOLOGY - GENERAL ORD ERABLES Final Result Performing Organization Address [facility] Co de Phone Number [facility] [address] [place] [address], [place] [phone] * Lactate, with reflex (03/30/2024 9:29 PM EST) [facility] LACTIC ACID 1.8 0.4 - 2.0 mmol/L LAB CHEMISTRY METHOD 03/30/2024 10:33 PM EST [facility] Blood Venous blood specimen / Unknown Venipuncture / Unknown 03/30/2024 9:29 PM EST 03/30/2024 10:05 PM EST us Leland Esteban MD LAB BLOOD ORDERABLES Final Res ult Performing Organization Address City/[facility]/ZIP Co de Phone Number [facility] [address] [place] [address], [place] [phone] * (ABNORMAL) Urinalysis with reflex microscopic (03/30/2024 4:22 PM EST) Specific [place] Urine >1.045(H) 1.003 - 1.030 LAB URINALYSIS - AUTOMATED METHOD 03/30/2024 4:52 PM [facility] pH, Urine 5.5 5.0 - 8.0 pH LAB URINALYSIS - AUTOMATED METHOD 03/30/2024 4:52 PM [facility] Leukocytes, Urine Negative Negative LAB URINALYSIS - AUTOMATED METHOD 03/30/2024 4:52 PM [facility] Nitrite, Urine Negative Negative LAB URINALYSIS - AUTOMATED METHOD 03/30/2024 4:52 PM [facility] Protein, Urine Negative <=Trace mg/dL LAB URINALYSIS - AUTOMATED METHOD 03/30/2024 4:52 PM [facility] Glucose, Urine Negative Negative mg/dL LAB URINALYSIS - AUTOMATED METHOD 03/30/2024 4:52 PM [facility] Ketones, Urine Negative Negative mg/dL LAB URINALYSIS - AUTOMATED METHOD 03/30/2024 4:52 PM [facility] Urobilinogen , Urine 1.0 0.2 - 1.0 mg/dL LAB URINALYSIS - AUTOMATED METHOD 03/30/2024 4:52 PM [facility] Bilirubin, Urine Negative Negative LAB URINALYSIS - AUTOMATED METHOD 03/30/2024 4:52 PM [facility] Blood, Urine Negative Negative LAB URINALYSIS - AUTOMATED METHOD 03/30/2024 4:52 PM [facility] Urine Urine specimen obtained by clean catch procedure / Unknown Non-blood Collection / Unknown 03/30/2024 4:22 PM EST 03/30/2024 4:40 PM EST Tobin MAGUIRE LAB URINE ORDERABLES Angelique l Result Performing Organization Address [facility]/ZIP Co de Phone Number [facility] [address] [place] [address], [place] [phone] * Troponin I high sensitivity (03/30/2024 3:21 PM EST) Pathologist [facility] High Sensitivity Troponin I 9 <=79 ng/L LAB CHEMISTRY METHOD 03/30/2024 4:02 PM EST [facility] Blood Venous blood specimen / Unknown Venipuncture / Unknown 03/30/2024 3:21 PM EST 03/30/2024 3:35 PM EST Narrative [facility] - 03/30/2024 4:02 PM EST High levels of biotin in samples may falsely decrease hsTroponin values. ??Use caution when interpreting hsTroponin results in patients taking biotin who exhibit renal impairment (eGFR <60) or in patients taking more than 20 mg/day of biotin. Tobin MAGUIRE LAB BLOOD ORDERABLES Angelique l Result Performing Organization Address [facility] Co de Phone Number [facility] [address] [place] [address], [place] [phone] * B-type natriuretic peptide (03/30/2024 3:21 PM EST) [facility] BNP 75 <=100 pcg/mL LAB CHEMISTRY METHOD 03/30/2024 4:09 PM EST [facility] Blood Venous blood specimen / Unknown Venipuncture / Unknown 03/30/2024 3:21 PM EST 03/30/2024 3:35 PM EST Tobin MAGUIRE LAB BLOOD ORDERABLES Angelique l Result Performing Organization Address City/[facility]/ZIP Co de Phone Number [facility] [address] [place] [address], [place] [phone] * CT Angio Chest wo and/or w [...] Signed Date: 03/30/2024 14:53 ET Workstation ID: [id number] Transcribed By: Self Edit Transcribed Date: 03/30/2024 [...] Signed Date: 03/30/2024 14:53 ET Workstation ID: [id number] Transcribed By: Self Edit Transcribed Date: 03/30/2024 14:48 ET Tobin MAGUIRE IMG CT PROCEDURES Final R esult * Respiratory virus panel molecular study (03/30/2024 11:59 AM EST) Adenovirus Detection by PCR Not Detected Not Detected LAB MICROBIOLOGY METHOD 03/30/2024 1:28 PM [facility] Influenza A PCR Not Detected Not Detected LAB MICROBIOLOGY METHOD 03/30/2024 1:28 PM [facility] Influenza B PCR Not Detected Not Detected LAB MICROBIOLOGY METHOD 03/30/2024 1:28 PM [facility] Coronavirus 229E Not Detected Not Detected LAB MICROBIOLOGY METHOD 03/30/2024 1:28 PM [facility] Coronavirus HKU1 Not Detected Not Detected LAB MICROBIOLOGY METHOD 03/30/2024 1:28 PM [facility] Coronavirus OC43 Not Detected Not Detected LAB MICROBIOLOGY METHOD 03/30/2024 1:28 PM [facility] Coronavirus NL63 Not Detected Not Detected LAB MICROBIOLOGY METHOD 03/30/2024 1:28 PM [facility] Parainfluenza Virus 1 Not Detected Not Detected LAB MICROBIOLOGY METHOD 03/30/2024 1:28 PM [facility] Parainfluenza Virus 2 Not Detected Not Detected LAB MICROBIOLOGY METHOD 03/30/2024 1:28 PM [facility] Parainfluenza Virus 3 Not Detected Not Detected LAB MICROBIOLOGY METHOD 03/30/2024 1:28 PM [facility] Parainfluenza Virus 4 Not Detected Not Detected LAB MICROBIOLOGY METHOD 03/30/2024 1:28 PM [facility] RSV PCR Not Detected Not Detected LAB MICROBIOLOGY METHOD 03/30/2024 1:28 PM [facility] Human Metapneumovirus A and B Not Detected Not Detected LAB MICROBIOLOGY METHOD 03/30/2024 1:28 PM [facility] Rhinovirus/Entero virus Not Detected Not Detected LAB MICROBIOLOGY METHOD 03/30/2024 1:28 PM [facility] Bordetella pertussis Not Detected Not Detected LAB MICROBIOLOGY METHOD 03/30/2024 1:28 PM [facility] Bordetella parapertussis Not Detected Not Detected LAB MICROBIOLOGY METHOD 03/30/2024 1:28 PM [facility] Mycoplasma pneumo by PCR Not Detected Not Detected LAB MICROBIOLOGY METHOD 03/30/2024 1:28 PM [facility] Chlamydia pneumoniae Not Detected Not Detected LAB MICROBIOLOGY METHOD 03/30/2024 1:28 PM [facility] SARS COV-2 Not Detected Not Detected LAB MICROBIOLOGY METHOD 03/30/2024 1:28 PM [facility] Swab Both anterior nares / Unknown Non-blood Collection / Unknown 03/30/2024 11:59 AM EST 03/30/2024 12:10 PM EST [facility] - 03/30/2024 1:28 PM EST Testing was performed using the [employer] Respiratory Pathogen PCR Assay. All results must [...] L ORDERABLES Final Result Performing Organization Address City/[facility] Co de Phone Number [facility] [address] [place] [address], [place] [phone] * ECG 12 lead (03/30/2024 9:24 AM EST) Ventricular Rate ECG 121 BPM GEMUSE Atrial Rate 121 BPM GEMUSE P-R Interval 162 ms GEMUSE QRS Duration 82 ms GEMUSE Q-T Interval 320 ms GEMUSE QTc 454 ms GEMUSE P Wave [place] 43 degrees GEMUSE R [place] 8 degrees GEMUSE T [place] 42 degrees GEMUSE ECG Interpretation Sinus tachycardia When compared with ECG of 18-MAR-2023 20:07, Nonspecific T wave abnormality no longer evident in Lateral leads Confirmed by DEEPA BARNES ([id number]) on 03/31/2024 5:16:49 AM GEMUSE 03/30/2024 9:24 AM EST 03/31/2024 5:16 AM EST Tobin MAGUIRE ECG ORDERABLES Final Res ult Performing Organization Address [facility] de Phone Number GEMUSE * (ABNORMAL) Thyroid stimulating hormone with reflex to free t4 and free t3 (TSH Reflex) (03/30/2024 8:38 AM EST) TSH 4.06(H) 0.40 - 4.00 mcIU/mL LAB CHEMISTRY METHOD 03/30/2024 8:27 PM EST [facility] Blood Venous blood specimen / Unknown Venipuncture / Unknown 03/30/2024 8:38 AM EST 03/30/2024 8:46 AM EST Bozena MAGUIRE LAB BLOOD ORDERABLES F inal Result Performing Organization Address [facility] Co de Phone Number [facility] [address] [place] [address], [place] [phone] * Free thyroxine with reflex to free triiodothyronine (03/30/2024 8:38 AM EST) Free T4 1.20 0.70 - 1.80 ng/dL LAB CHEMISTRY METHOD 03/30/2024 9:00 PM EST [facility] Blood Venous blood specimen / Unknown Venipuncture / Unknown 03/30/2024 8:38 AM EST 03/30/2024 8:46 AM EST Bozena MAGUIRE LAB BLOOD ORDERABLES F inal Result Performing Organization Address [facility] de Phone Number [facility] [address] [place] [address], [place] [phone] * Triiodothyronine free (03/30/2024 8:38 AM EST) T3, Free 301 230 - 420 pcg/dL LAB CHEMISTRY METHOD 03/30/2024 9:27 PM EST [facility] Blood Venous blood specimen / Unknown Venipuncture / Unknown 03/30/2024 8:38 AM EST 03/30/2024 8:46 AM EST Bozena MAGUIRE LAB BLOOD ORDERABLES F inal Result Performing Organization Address [facility] de Phone Number [facility] [address] [place] [address], [place] [phone] * Lipase (03/30/2024 8:38 AM EST) Lipase 56 13 - 75 unit/L LAB CHEMISTRY METHOD 03/30/2024 9:20 AM EST [facility] Blood Venous blood specimen / Unknown Venipuncture / Unknown 03/30/2024 8:38 AM EST 03/30/2024 8:46 AM EST Jason Griffin DO LAB BLOOD ORDERABLES Final Res ult [facility] [address] [place] [address], * ECG-Annotated (03/30/2024) us Provider Onbase MD ECG ORDERABLES Final Result from Last 3 Months Additional Health Concerns Infection Onset Date Last Indicated Norovirus 03/31/2024 03/31/2024 Insurance MEDICARE [place]ICA[place] - [place] [facility] Advance Directives * Full Code - [...] currently active code status orders. Care Teams Steam Setter Relationship Specialty Start Date End Date Raji Amanda MD [address] [place] [address] [address] [place] [address] PCP - General Internal Medicine 03/30/24
--- OUTSIDE RECORDS SUMMARY | 2024-06-11 16:53 | XMS_ITS | Clinical Summary ---
Author Organization [facility] Address [address] [place] [address] Phone Care Team Providers Care Womens Volleyball Coach Name Role Phone [facility] Primary Care Provider [phone] [facility] Unavailable [phone] Reason for Visit and Chief Complaint Post Op Visit/Follow Up Plan of Treatment Pending Tests Order Diagnosis Results Due Ordering P rovider Follow Up - Appointment 2 Weeks Displ bi malleol fx r low leg, subs for clos fx w routn heal 04/03/23 Marcell Chase MD Last Documented On 4 10:03AM ; [facility] Assessments Includes: Assessments from this encounter No Assessments Recorded Medical Equipment - Implanted Devices Includes: Current Devices No Medical Equipment Recorded Medications Includes: Medications discussed during this encounter and other current Medications Current Medications (continue as prescribed) Tylenol Oral Tablet 07/02/2023 Provider: Diagnosis: Last Documented On 4 8:15AM By Cam Levy ; [facility] Medications Administered Includes: Administered Medications from [...] Post Op Visit/Follow Up Marcell Chase MD [facility] 04/03/19 24 9:00AM 10:14AM Insurance Includes: Active Insurance Policies Plan Name Member ID Group # Subscriber Relationship Effect yelena Dates 1 - Medicare Part B [facility] [id number] Gene Cordero Self 2 - [employer]ex [id number] Gene Westbrook 08/27/2015 - Unknown Clinical Notes Includes: Clinical Notes from this encounter * Progress note Date Encounter Last Documented by 04/03/2023 Post Op Visit/Follow Up Last doc umented on 04/03/2023; 10:03 AM, Marcell Chase MD; [facility], Physical Findings Chief complaint: Follow-up ORIF [...]
--- OUTSIDE RECORDS SUMMARY | 2024-06-11 16:53 | XMS_ITS ---
Author Organization [facility] Address [address] [place] [address] Phone Care Team Providers Care Surveillance Observer Name Role Phone [place] [facility] Primary Care Provider [phone] [facility] Unavailable [phone] Plan of Treatment No Plan of Treatment Recorded Assessments Includes: Assessments for all patient encounters No Assessments Recorded Medical Equipment - Implanted Devices Includes: Current and historical Devices No Medical Equipment Recorded Medications Includes: Current and historical Medications Current Medications (continue as prescribed) Tylenol Oral Tablet 07/02/2023 Provider: Diagnosis: Last Documented On 8:15AM By Cam Levy ; [facility] Medications Administered Includes: Administered Medications in patient's chart No Administered Medications Recorded Vital Signs Includes: Vital Signs from 06/12/2023 through 06/11/2024 Vital Name 10/02/2023 07:44A 07/02/2023 08: 13A Blood Pressure Sitting (mmHg) 136/84 121/72 Pulse Rate-Sitting (bpm) 69 116 Temp-Temporal 97.1 97.1 Weight (lb) 252 252 Oxygen Saturation (%) 97 95 Last Documented: On 10/02/2023 7:44AM ; [facility] On 07/02/2023 8:14AM ; [facility] Results Includes: Results from 06/12/2023 through 06/11/2024 No Results Recorded For Specified Dates History of Present Illness History of Present Illness not supported for this document type No History of Present Illness Recorded Social History No Social History Recorded - Smoking Status Unknown Procedures and Surgical History Includes: Procedures from 06/12/2023 through 06/11/2024 Procedures Code Diagnosis Performing Provider Service Location Service Date X-Ray Exam Of Ankle, minimum of 3 views (Right) [address] Displ bimalleol fx r low leg, subs for clos fx w routn heal [facility] 10/02/2023 Last Documented On 4 2:11PM ; [facility] Medical History Includes: Medical History in [...] Physical Exam Recorded Encounters Includes: Encounters from 06/12/2023 through 06/11/2024 Encounter Provider Location Date Check-In Time Check-Out Time Diagnosis Established Patient Marcell Chase MD [facility] 10/02/19 24 8:00AM 7:44AM Established Patient Tavo Blanco MD [facility] 07/02/19 24 8:20AM 8:27AM Insurance Includes: Active Insurance Policies Plan Name Member ID Group # Subscriber Relationship Effect yelena Dates 1 - Medicare Part B [facility] [id number] Gene [employer] Self 2 - Medex [id number] [facility]/27/2015 - Unknown Clinical Notes Includes: Signed Clinical Notes starting from 02/05/2022 * Progress note Date Encounter Last Documented by 10/02/2023 Established Patient Leandro espinoza on 10/02/2023; 7:46 AM, Marcell Chase MD; [facility] Current Medication - Tylenol Oral Tablet [...] 10:04 AM, Tavo Blanco MD; [facility], Chief Complaint Closed displaced bimalleolar fracture right [...]
== END 2024-06-11 15:28 | disposition home or self-care (01) ==
LOC: HO.HMCH 14:07
DX: J32.9 Chronic sinusitis, unspecified (principal); R09.81 Nasal congestion; M16.12 Unilateral primary osteoarthritis, left hip; M1A.0790 Idiopathic chronic gout, unspecified ankle and foot, without tophus (tophi); B19.10 Unspecified viral hepatitis B without hepatic coma; G47.31 Primary central sleep apnea; E66.811 Obesity, class 1; E66.09 Other obesity due to excess calories; Z68.34 Body mass index [BMI] 34.0-34.9, adult

== ENCOUNTER → 2024-06-11 14:06 | Outpatient (BNVA) | payer MEDICARE, SELFPAY | DX: Z76.89 Persons encountering health services in other specified circumstances (principal); J32.9 Chronic sinusitis, unspecified; R09.81 Nasal congestion; M16.12 Unilateral primary osteoarthritis, left hip; M1A.0790 Idiopathic chronic gout, unspecified ankle and foot, without tophus (tophi); B19.10 Unspecified viral hepatitis B without hepatic coma; G47.31 Primary central sleep apnea; E66.811 Obesity, class 1; E66.09 Other obesity due to excess calories; Z68.34 Body mass index [BMI] 34.0-34.9, adult | CPT/HCPCS: 96127; 99212 ==

== ENCOUNTER 2024-07-22 15:24 | Outpatient (AMB) | payer MEDICARE, SELFPAY ==
--- OUTSIDE RECORDS SUMMARY | 2024-07-22 15:28 | XMS_ITS | Data Portability ---
Author Organization [facility], [facility] Address [address] [place] [address] Care Team Providers Care Paid Search Specialist Name Role Phone DONNA FLOWERS Primary Care [...] surveillance status post left total hip arthroplasty. [email or web address] Not available 08/21/2023 07:30:04 Plan of Treatment Reminders Order Date Submit Date Provider Last Modified By Organization Details Last Modified Time Details Appointments None record ed. Lab None record ed. Referral None record ed. Procedures None record ed. Surgeries None record ed. Imaging XR, hip, unilat eral, 2 or 3 view - 204 lthr pain [place] 2021 024 08/17/19 24 [facility], [address], [facility] [address], [place], [address], 4 08:58:16 Medication Orders None record ed. [...] a4ajBk vP9nXo QUaueC m3YtLR FvZlgJ JJ8mAn HZtai3 1m3304 AC0KuY nmAUqT eUC8mr 84%3D INTERFACE [facility] [address], [place], [address], 08/17/2023 14:30:49 08/17/19 24 08/17/2023 XR, hip, unila teral , 2 or 3 view http:/ [email or web address] ?Encry pted=s hAaTro YD8dLq bEUv6g %2BXZw aYqtaq 0bqfl% 2Fg9IQ a4ajBk vP9nXo QUaueC m3YtLR FvZlgJ JJ8mAn HZtai3 2w2113 AC0KuY nmAUqT eUC8mr 84%3D INTERFACE [facility] [address], [place], [address], 08/17/2023 14:30:51 10/27/19 24 10/18/2022 imagi ng/di agnos tic resul t No observ ation record ed. [email or web address] Not Available 09/28 10:43:11 Result Notes None recorded. Procedures Surgical History Date Name Laterality Status Provider Name and Address Organization Details Recorded Time Hip Kenalog 1cc Injection, L/R completed Ritchie Miller MD [address], [place], [address], [facility] 08/21/2023 07:30:14 Imaging Results None recorded. Procedure Notes None recorded. Medical Equipment None [...] Not Available Vitals Date Recorded Body height Body mass index (BMI) Body weight Provider Name and Address Organization Details Last Updated DateTime 03/14/2024 182.88 cm 34.6 kg/m2 517577.05 g DONNIE GOIREZ [facility] 03/14/2024 08:06:08 Date Recorded Body height Provider Name an d Address Organization Details Last Updated DateTime 08/17/2023 180.34 cm OLGA WILKSTimmy [facility] 08/17/2023 14:22:04 Date Recorded Body height Body mass index (BMI) Body weight Provider Name and Address Organization Details Last Updated DateTime 10/19/2023 180.34 cm 35.4 kg/m2 534920.46 g Anna Lawrence [facility] 10/19/2023 09:24:31 Social History None recorded. Functional Status None recorded. Mental Status None recorded. Family History Nothing Reported. Medical History No medical history recorded. Past Encounters Encounter ID Performer Location Encounter Start Date Encounter Closed Date Diagnosis/Indication Diagnosis SNOMED-CT Code Diagnosis ICD10 Code Diagnosis Note [id number] MD [facility]umberto Villegas [address] [place] [address] 08/17/2023 14:06:06 09/10/2023 08:58:16 History of total replacement of left hip joint [id number] 068638 Z96.642 Trochanter ic bursitis of left hip 1041561335 01636 M70.62 [id number] MD [facility]to Camacho 3rd floor [address] [place] [address] 10/19/2023 09:10:03 11/13/2023 10:21:40 Trochanteric bursitis of left hip 1038002687 30078 M70.62 [id number] Wong Velázquez MD [facility] [address] [place] [address] 03/14/2024 07:41:37 03/28/2024 15:51:44 Trochanteric bursitis of left hip [id number] 60560 M70.62 Health Concerns Section Related Observation LastModified by Organization Detai ls LastModified Time None Recorded Concern Status LastModified by Organization Details LastModified Time None Recorded Advance Directives Directive None Recorded Payers Encounter Date Sequence Insurance Name Policy Number Policy Rust Covered Member ID Rust Member ID Guarantor Name 08/17/2023 2 [place] [id number] Gene Warner Aeschback [id number] Gene Aeschback 08/17/2023 1 [place] [employer] Gene A Aeschback [id number] Gene Aeschback 10/19/2023 2 [place] [id number] Gene Warner Aeschback [id number] Gene Aeschback 10/19/2023 1 [place] Gene A Aeschback [id number] Gene Aeschback 03/14/2024 2 [place] [id number] Gene Warner Aeschback [id number] Gene Aeschback 03/14/2024 1 [place] Gene A Aeschback [id number] Gene Mobleycholinda Notes Date Note Type Note Provider Name [...] 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 HPI: Patient is a 76-year-old male [...] injection. We discussed the experimental nature and mds-xm-tdgikv cost with PRP injection. Third option would [...] He was provided contact information for our surgical pathologist and can call if he would like to start the booking process. Wong Velázquez MD [facility] [address], [place], [address], 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 We discussed the experimental nature and qtj-oa-pviuzv cost with PRP injection. Third option would [...] start the booking process. Wong Velázquez MD [address] [place] [address] [address], [place], [address], [facility] 03/14/2024 18:40:13
[2024-07-22 15:30] VITALS: BP 130/76; PULSE 78; O2SAT 95; BMI 35.1
--- NOTE | 2024-07-22 15:30 | MHC.PC.OV ---
Vital Signs 07/22/24 15:30 Height 6 ft Weight 259 lb BMI 35.1 BP 130/76 Blood Pressure Location Lt brachial Position Sitting Pulse 78 Pulse Source Pulse Oximeter Pulse Oximetry (%) 95 Oxygen Delivery Method Room Air Intake Visit Reasons: follow up Office System Analyst Required: No Accompanied by: Self / Same As Patient Allergies No Known Allergies Allergy (Verified 07/24/24 16:22) Medication List - Last Reconciled 07/22/24 by CHRISTIANO Rey allopurinol 100 mg PO .QOD 90 days clonazepam 0.5 mg PO BID entecavir 1 tab PO DAILY fluticasone propionate 50 mcg/actuation 1 spray intranasal BID hydrochlorothiazide 12.5 mg PO DAILY loratadine 10 mg PO DAILY omeprazole 20 mg PO DAILY@629 vitamin B6-vitamin E-magnesium 100 tabs PO DAILY Tobacco use date assessed: 07/22/24 Fall risk assessment: No Falls in past year Last assessed Fall Risk: 07/22/24 Dental Screening Dental Screen Date: 07/22/24 Did you have a dental visit in the last 12 months?: No Did you have a dental problem in the last 6 months where you did not have access to dental care?: No Was dental information given to patient?: No HPI follow up HPI Details Patient is presenting with ongoing cough and persistent nasal congestion. On previous visit the patient reports that these symptoms were ongoing for approximately 10 days and that he noticed that it was worse during the nighttime. The patient associates is persistent cough with postnasal drip that make it it difficult for him to breathe at night. He was utilizing Robitussin clih-rhj-sczubse. On that visit, the patient was prescribed Augmentin, Flonase, and Claritin. Patient is returning today with complaints that he completed the Augmentin, his cough decreased but progressively has been increasing again. Patient lungs are clear but he has been experiencing some shortness of breath particularly during the nighttime while laying down. Denies chest pain, heart palpitation or dizziness. Afebrile. [facility] Medical History Preop exam for internal medicine Cirrhosis GERD (gastroesophageal reflux disease) Kidney stone Hepatitis B COVID-19 vaccine series completed Sleep apnea BPH (benign prostatic hyperplasia) Obesity Arthritis of left hip Anxiety Hip pain Surgical History History of total left hip arthroplasty History of lithotripsy H/O colonoscopy History of back surgery History of appendectomy History of tonsillectomy Family History Father No problems noted. Mother No problems noted. Daughter No problems noted. Social History Housing: House Are you a primary ocular care aide to a significant other at home: No Do you presently have visiting nurse or other home services: No Alcohol intake: never Patient Tobacco Use Status: Never used Tobacco Tobacco use type: Cigarette e-Cigarette/Vaping Use: Never Used Second Hand Smoke Exposure: No service: No 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al status: retired 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 Cognitive needs: No Hearing needs: No Vision needs: Yes Questionnaire PHQ-9 Over the last 2 weeks, how often have you been bothered by any of the following problems? 1. Little interest or pleasure in doing things: not at all 2. Feeling down, depressed, or hopeless: not at all 3. Trouble falling or staying asleep, or sleeping too much: not at all 4. Feeling tired or having little energy: not at all 5. Poor appetite or overeating: not at all 6. Feeling bad about yourself - or that you are a failure or have let yourself or your family down: not at all 7. Trouble concentrating on things, such as reading the newspaper or watching television: not at all 8. Moving or speaking so slowly that other people could have noticed. Or the opposite - being so fidgety or restless that you have been moving around a lot more than usual: not at all 9. Thoughts that you would be better off or of hurting yourself in some way: not at all Total score: 0 Depression Screening Interpretation: Negative Depression Screening Done: Yes Source: Developed by Drs. Gene Villafuerte, Renu Acharya, Crescencio Corbin and colleagues, with an educational chris from [employer]. Thrive Questionnaire Date Thrive assessed: 07/22/24 I am a: Patient What is your living situation today?: I have a steady place to live Within the past 12 months, did the food you bought not last and you didn't have the money to get more?: Never true Within the past 12 months, did you worry whether your food would run out before you got money to buy more?: Never true Do you have trouble paying for medicines?: No Do you have trouble getting transportation to medical appointments?: No Do you have trouble paying your heating and electricity bill?: No Do you have trouble taking care of your child, family member or friend?: No Do you have trouble with day-to-day activities such as bathing, preparing meals, shopping, managing finances, etc.?: No Are you currently unemployed and looking for a job?: No Are you interested in more education?: No Please select the resources that you would like help with: None Currently or been in a relationship where the following occur: No concerns reported THRIVE Score: 0 AUDIT C Alcohol Use Questionnaire (AUDIT-C) 1. How often do you have a drink containing alcohol?: 2-4 times a month 2. How many drinks containing alcohol do you have on a typical day when you are drinking?: 1 or 2 3. How often do you have six or more drinks on one occasion?: Never Total Score: 2 MARCO ANTONIO-7 AMB Questionnaire MARCO ANTONIO-7 Date MARCO ANTONIO - 7 assessed: 07/22/24 Feeling nervous, anxious, or on edge: 0 = Not at all Not being able to stop or control worryin = Not at all Worrying too much about different things: 0 = Not at all Trouble relaxin = Not at all Being so restless that it is hard to sit still: 0 = Not at all Becoming easily annoyed or irritable: 0 = Not at all Feeling afraid as if something awful might happen: 0 = Not at all Total MARCO ANTONIO-7 score (0-4 normal; 5-9 mild; 10-14 moderate; 15-21 severe): 0 Source: Developed by Drs. Gene Villafuerte, Renu Acharya, Crescencio Corbin and colleagues, with an educational chris from [employer]. Review of Systems Const Denies headache(s) Eyes Denies loss of vision ENT Denies vertigo, Denies dizziness, Denies otalgia, Denies headache(s), Reports nasal congestion, Denies nasal discharge, Reports post nasal drip, Denies tinnitus and Denies sore throat Card Denies chest pain, Denies leg edema, Denies lightheadedness and Reports dyspnea (At nighttime) Resp Reports cough, Denies hemoptysis, Reports excessive phlegm production, Reports dyspnea (At nighttime) and Denies wheezing GI Denies abdominal pain, Denies melena, Denies constipation, Denies diarrhea and Denies vomiting Neuro Denies Abnormal speech present, Denies vertigo, Denies dizziness, Denies headache(s) and Denies loss of vision Aller/Immun Denies wheezing Physical exam (Primary Care) Vital Signs: Last Vital Signs Pulse 78 07/22/24 15:30 BP 130/76 07/22/24 15:30 Pulse Ox 95 07/22/24 15:30 Oxygen Delivery Method Room Air 07/22/24 15:30 BMI result Body Mass Index 35.1 Tobacco/Smoking Status: Tobacco use Status Tobacco use date assessed 07/22/24 07/22/24 15:38 Patient Tobacco Use Status Never used Tobacco 07/22/24 15:38 Tobacco use type Cigarette 07/22/24 15:38 e-Cigarette/Vaping Use Never Used 07/22/24 15:38 PHQ-9: PHQ-9 Score PHQ-9: Total score 0 07/22/24 16:03 Depression Screening Interpretation: Negative Thrive Assessment: Date of Thrive Assessment Date Thrive assessed 07/22/24 07/22/24 15:38 Currently or been in a relationship where the following occur: No concerns reported Const General: healthy appearing, no acute distress, alert and awake Nutritional Appearance: well nourished Orientation/consciousness: oriented to person, oriented to place and oriented to time [facility] Ears: TM's normal bilaterally General nose exam: Abnormal mucous membranes and turbinates present boggy and erythematous Eyes Conjunctivae: conjunctivae normal Sclerae: sclerae normal Pupils: Equal, round and reactive pupils present Neck Neck: Yes no lymphadenopathy and Yes no JVD Thyroid: Thyroid normal Carotids: no bruits Resp Effort & Inspection: normal respiratory effort and not tachypneic Auscultation: no crackles, no rales, no rhonchi and no wheezes Cardio Rate: regular rate Rhythm: regular rhythm Heart sounds: no murmurs and normal S1 and S2 GI Palpation (GI): Soft to palpation, nontender, no hepatomegaly and no splenomegaly Auscultation: normal bowel sounds Neuro General: oriented to person, oriented to place and oriented to time Cranial nerves: Yes Equal, round and reactive pupils present Speech: No Abnormal speech present Gait exam (Neuro): Normal gait present Motor exam (neuro): no tremor noted Extrem Right lower extremity: no edema Left lower extremity: no edema Coding Level of Care Code Est Pt Level 3 (96025) Diagnoses Nasal congestion R09.81 Chronic cough R05.3 Orthopnea R06.01 Time Spent (min) 33 Assessment & Plan Assessment & Plan (1) Nasal congestion: Code(s): R09.81 - Nasal congestion Category: Medical Plan: Reports that he has not been using the Flonase or Claritin consistently. Encouraged compliance until at least feeling better. (2) Chronic cough: Code(s): R05.3 - Chronic cough Category: Medical Plan: Benzonatate 200 mg b.i.d. p.r.n. ordered (3) Orthopnea: Code(s): R06.01 - Orthopnea Category: Medical Plan: Suspect post nasal drip triggering cough reflex and causing the patient difficulty breathing while lying down. Encouraged allergy medications and ordered an rescue inhaler for dyspnea as needed. Medications: New albuterol sulfate 90 mcg/actuation 2 puffs inhalation Q4-6H PRN 8.5 grams 2RF shortness of breath or wheezing benzonatate 200 mg PO BID PRN 60 caps 2RF cough
== END 2024-07-22 16:23 | disposition home or self-care (01) ==
LOC: HO.HMCH 15:25
DX: R09.81 Nasal congestion (principal); R05.3 Chronic cough; R06.01 Orthopnea

== ENCOUNTER → 2024-07-22 15:24 | Outpatient (BNVA) | payer MEDICARE, SELFPAY | DX: R09.81 Nasal congestion (principal); R05.3 Chronic cough; R06.01 Orthopnea | CPT/HCPCS: 99212 ==

== ENCOUNTER 2024-07-22 21:42 | Emergency (ER) | payer MEDICARE, SELFPAY ==
[2024-07-22 21:44] VITALS: BP 119/83; PULSE 88; RESP 16; TEMP 36.4; O2SAT 96; BMI 35.0
== END 2024-07-23 01:46 | disposition left against medical advice (07) ==
PROVIDERS: Emergency Provider Emergency Medicine
DX: H91.93 Unspecified hearing loss, bilateral (principal); B19.10 Unspecified viral hepatitis B without hepatic coma; K74.60 Unspecified cirrhosis of liver; I25.10 Atherosclerotic heart disease of native coronary artery without angina pectoris; R60.0 Localized edema; Z53.21 Procedure and treatment not carried out due to patient leaving prior to being seen by health care provider
CPT/HCPCS: 36415; 80051; 80061; 82310; 82565; 82947; 83970; 84443; 84520; 99281

== ENCOUNTER 2024-07-23 11:45 | Outpatient (REF) | payer MEDICARE, SELFPAY ==
[2024-07-23 13:12] LABS: Anion Gap 11 (12-20); Blood Urea Nitrogen 19 mg/dL (9-16); Calcium 8.9 mg/dL (8.4-10.2); Carbon Dioxide 26 mmol/L (22-29); Chloride 105 mmol/L (96-108); Cholesterol 155 mg/dL (<200); Estimated Glomerular Filt Rate > 60; HDL Cholesterol 47 mg/dL (>40); LDL Cholesterol Calculated 93 mg/dL (<100); Sodium 138 mmol/L (135-145); Triglycerides 78 mg/dL (<150)
[2024-07-23 13:13] LABS: Glucose Fasting 133 mg/dL (60-99)
[2024-07-23 13:25] LABS: TSH reflex Free T4 2.42 uIU/mL (0.32-4.0)
[2024-07-23 14:46] LABS: Parathyroid Hormone Intact 120.9 pg/mL (8.7-77.1)
== END 2024-07-23 11:46 | disposition home or self-care (01) ==
LOC: HO.LAB 11:45
PROVIDERS: Visit Provider Internal Medicine Nephrology
DX: Z13.89 Encounter for screening for other disorder (principal)
CPT/HCPCS: 36415; 80051; 80061; 82310; 82565; 82947; 83970; 84443; 84520

== ENCOUNTER 2024-07-24 16:04 | Outpatient (AMB) | payer MEDICARE, SELFPAY ==
--- OUTSIDE RECORDS SUMMARY | 2024-07-24 16:07 | XMS_ITS | Data Portability ---
Author Organization [facility], [facility] Address [address] [place] [address] Care Team Providers Care Development Advisor Name Role Phone DONNA FLOWERS Primary Care Provider [phone] Assessment Encounter Date Assessment Date Assessment LastModified [...] surveillance status post left total hip arthroplasty. [email or web address] Not available 08/21/2023 07:30:04 Plan of Treatment [...] [address], [address], [facility] [address], [place], [address], 4 08:58:16 Medication Orders None record ed. [...] a4ajBk vP9nXo QUaueC m3YtLR FvZlgJ JJ8mAn HZtai3 [id number] AC0KuY nmAUqT eUC8mr 84%3D INTERFACE [facility] [address], [place], [address], 08/17/2023 14:30:49 08/17/19 24 08/17/2023 XR, hip, unila teral , 2 or 3 view http:/ [email or web address] ?Encry pted=s hAaTro YD8dLq bEUv6g %2BXZw aYqtaq 0bqfl% 2Fg9IQ a4ajBk vP9nXo QUaueC m3YtLR FvZlgJ JJ8mAn HZtai3 5v1476 AC0KuY nmAUqT eUC8mr 84%3D INTERFACE [facility] [address], [place], [address], 08/17/2023 14:30:51 10/27/19 24 10/18/2022 imagi ng/di agnos tic resul t No observ ation record ed. [email or web address] Not Available 09/28 10:43:11 Result Notes None recorded. Procedures Surgical History Date Name Laterality Status Provider Name and Address Organization Details Recorded Time Hip Kenalog 1cc Injection, L/R completed Ritchie Miller MD [address], [place], [address], [facility] 08/21/2023 07:30:14 Imaging Results [...] Updated DateTime 03/14/2024 182.88 cm 34.6 kg/m2 250982.05 g DONNIE GOIREZ [facility] 03/14/2024 08:06:08 Date Recorded Body height Provider Name an d Address Organization Details Last Updated DateTime 08/17/2023 180.34 cm OLGA WILKSTimmy [facility] 08/17/2023 14:22:04 Date Recorded Body height Body mass index (BMI) Body weight Provider Name and Address Organization Details Last Updated DateTime 10/19/2023 180.34 cm 35.4 kg/m2 257949.46 g Anna Lawrence [facility] 10/19/2023 09:24:31 Social History None recorded. Functional Status None recorded. Mental Status None recorded. Family History Nothing Reported. Medical History No medical history recorded. Past Encounters Encounter ID Performer Location Encounter Start Date Encounter Closed Date Diagnosis/Indication Diagnosis SNOMED-CT Code Diagnosis ICD10 Code Diagnosis Note [id number] MD Humberto Villegas [address] [place] [address] 08/17/2023 14:06:06 09/10/2023 08:58:16 History of total replacement of left hip joint 1409250172 190485 Z96.642 Trochanter ic bursitis of left hip 8172912911 46486 M70.62 [id number] MD Humberto Camacho 3[address] floor [address] [place] [address] 10/19/2023 09:10:03 11/13/2023 10:21:40 Trochanteric bursitis of left hip 8523981408 44406 M70.62 [id number] Wong Velázquez MD [facility] [address] [place] [address] 03/14/2024 07:41:37 03/28/2024 15:51:44 Trochanteric bursitis of left hip 5949014772 68874 M70.62 Health Concerns Section Related Observation LastModified by Organization Detai ls LastModified Time None Recorded Concern Status LastModified by Organization Details LastModified Time None Recorded Advance Directives Directive None Recorded Payers Encounter Date Sequence Insurance Name Policy Number Policy Rust Covered Member ID Rust Member ID Guarantor Name 08/17/2023 2 [place] [id number] Gene Warner Aeschback [id number] Egne Aeschback 08/17/2023 1 [place] Gene A Aeschback [id number] Gene Aeschback 10/19/2023 2 [place] [id number] Gene Warner Aeschback [id number] Gene Aeschback 10/19/2023 1 [place] Gene A Aeschback [id number] Gene Aeschback 03/14/2024 2 [place] [id number] Gene Warner Aeschback [id number] Gene Aeschback 03/14/2024 1 [place] Gene A Aeschback [id number] Gene Mobleycholinda Notes Date Note Type [...] injection. We discussed the experimental nature and gwn-xn-ckgdls cost with PRP injection. Third option would [...] was provided contact information for our surgical garment assembler and can call if he would like to start the booking process. 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 We discussed the experimental nature and eob-iy-ohtvln cost with PRP injection. Third option would [...] start the booking process. Wong Velázquez MD [address] [place] [address] [address], [place], [address], [facility] 03/14/2024 18:40:13
--- NOTE | 2024-07-24 16:20 | HO.NEPHOV ---
Vital Signs 07/24/24 16:22 Height 6 ft Weight 260 lb 6 oz BMI 35.3 BP 110/70 Blood Pressure Location Rt brachial Position Sitting Pulse 87 Pulse Source Pulse Oximeter Pulse Oximetry (%) 98 Oxygen Delivery Method Room Air Intake Visit Reasons: 3mon follow-up w/labs-Conf Freight Separator Required: No Accompanied by: Self / Same As Patient Allergies No Known Allergies Allergy (Verified 07/24/24 16:22) HPI Comments Details: Gene was seen in follow up for renal calculi. Last CT imaging showed bilateral kidney stones. He had left ureteral stent placement with subsequent ESWL and stent removal. He had 24 hour urine collection in the past. His Stone analysis on 04/2023--Calcium Oxalate Dihydrate 15, Calcium Oxalate Monohydrate ([place]ite) 70%, Carbonate Apatite 15%. He has been trying to keep up with increased fluid intake, and low sodium diet. Patient is also on allopurinol.He has no hypertension or DM. Currently he does not have any flank pain, hematuria, supra pubic pain, nausea, vomiting or fever. His serum creatinine is normal and his BP is at goal. [facility] Medical History Preop exam for internal medicine Cirrhosis GERD (gastroesophageal reflux disease) Kidney stone Hepatitis B COVID-19 vaccine series completed Sleep apnea BPH (benign prostatic hyperplasia) Obesity Arthritis of left hip Anxiety Hip pain Surgical History History of total left hip arthroplasty History of lithotripsy H/O colonoscopy History of back surgery History of appendectomy History of tonsillectomy Family History Father No problems noted. Mother No problems noted. Daughter No problems noted. Social History Housing: House Are you a primary anesthesiologist and critical care to a significant other at home: No Do you presently have visiting nurse or other home services: No Alcohol intake: never Patient Tobacco Use Status: Never used Tobacco Tobacco use type: Cigarette e-Cigarette/Vaping Use: Never Used Second Hand Smoke Exposure: No service: No 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al status: retired 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 Cognitive needs: No Hearing needs: No Vision needs: Yes Review of Systems Const All systems reviewed & are unremarkable except as noted in HPI and below Physical Exam Vital Signs: Last Vital Signs Pulse 87 07/24/24 16:22 BP 110/70 07/24/24 16:22 Pulse Ox 98 07/24/24 16:22 Oxygen Delivery Method Room Air 07/24/24 16:22 BMI result Body Mass Index 35.3 Const General: comfortable and no acute distress Orientation/consciousness: patient oriented x3 HEENT Head: Yes normocephalic Mouth: Normal oral and palatal mucosa present Eyes EOM: EOMs intact bilaterally Neck Neck: Yes supple Resp Auscultation: clear to auscultation bilaterally Cardio Jugular venous distension: no JVD Rate: regular rate GI Palpation (GI): Soft to palpation Auscultation: normal bowel sounds General: Yes no CVA tenderness Back/Spine/Pelvis Back: no CVA tenderness Skin General skin exam: no rashes or lesions noted Neuro General: patient oriented x3 and moves all extremities Extrem General: Yes no pedal edema Results Reviewed Nephrology Results: Sodium 138 mmol/L (135-145) 07/23/24 Potassium 4.0 mmol/L (3.3-5.1) 07/23/24 Chloride 105 mmol/L (96-108) 07/23/24 Carbon Dioxide 26 mmol/L (22-29) 07/23/24 BUN 19 mg/dL (9-16) H 07/23/24 Creatinine 0.93 mg/dL (0.5-1.4) 07/23/24 Calcium 8.9 mg/dL (8.4-10.2) 07/23/24 PTH Intact 120.9 pg/mL (8.7-77.1) H 07/23/24 Assessment & Plan Assessment & Plan (1) Nephrolithiasis: Comment: Mixed calcium oxalate stones December 20202023 Code(s): N20.0 - Calculus of kidney Category: Medical (2) Bilateral kidney stones: Code(s): N20.0 - Calculus of kidney Category: Medical Plan He has calcium oxalate stones with hypercalciuria. He tries to maintain low sodium diet with adequate fluid intake. His stones are dominantly calcium oxalate. He should continue current dose of HCTZ. I may consider adjusting the dose of HCTZ and add K citrate. He is aware of common side effects of HCTZ. He also should cut down oxalate in the diet. I did not make any other medication changes. Recent labs reviewed and follow up labs ordered. Answered all questions. Shall arrange F/U imaging with time. Also should continue to follow up with Urology Orders: Orders Electrolytes 6 Months N20.0 - Calculus of kidney Blood Urea Nitrogen 6 Months N20.0 - Calculus of kidney Calcium 6 Months N20.0 - Calculus of kidney Creatinine 6 Months N20.0 - Calculus of kidney Parathyroid Hormone Intact 6 Months N20.0 - Calculus of kidney Vitamin D 25-OH Total 6 Months N20.0 - Calculus of kidney Coding Level of Care Code Est Pt Level 4 (42963) Diagnoses Nephrolithiasis N20.0 Bilateral kidney stones N20.0
[2024-07-24 16:22] VITALS: BP 110/70; PULSE 87; O2SAT 98; BMI 35.3
== END 2024-07-24 16:57 | disposition home or self-care (01) ==
LOC: HO.HKAS 16:05
PROVIDERS: Visit Provider Internal Medicine Nephrology
DX: N20.0 Calculus of kidney (principal)
CPT/HCPCS: 99214

== ENCOUNTER → 2024-07-24 16:04 | Outpatient (BNVA) | payer MEDICARE, SELFPAY | PROVIDERS: Visit Provider Internal Medicine Nephrology | DX: N20.0 Calculus of kidney (principal) | CPT/HCPCS: 99212 ==

== ENCOUNTER 2024-08-12 15:32 | Outpatient (AMB) | payer MEDICARE, SELFPAY ==
[2024-08-12 15:47] VITALS: BP 134/78; PULSE 76; RESP 22; TEMP 36.9; O2SAT 95; BMI 35.1
--- NOTE | 2024-08-12 15:47 | A.OFFVIS_ITS ---
Intake Vital Signs 08/12/24 15:47 Height 6 ft Weight 258 lb 9.6 oz BMI 35.1 BP 134/78 Blood Pressure Location Lt brachial Position Sitting Respiration 22 H Pulse 76 Pulse Source Pulse Oximeter Temp 98.5 F Temp Source Oral Pulse Oximetry (%) 95 Oxygen Delivery Method Room Air Intake Visit Reasons: AWV Intranet Specialist Required: No Accompanied by: Self / Same As Patient Allergies No Known Allergies Allergy (Verified 08/12/24 16:20) Medication List - Last Reconciled 08/12/24 by CHRISTIANO Rey albuterol sulfate 90 mcg/actuation 2 puffs inhalation Q4-6H PRN allopurinol 100 mg PO .QOD 90 days benzonatate 200 mg PO BID PRN clonazepam 0.5 mg PO BID cyanocobalamin (vitamin B-12) 1,000 mcg PO DAILY entecavir 1 tab PO DAILY fluticasone propionate 50 mcg/actuation 1 spray intranasal BID hydrochlorothiazide 12.5 mg PO DAILY loratadine 10 mg PO DAILY omeprazole 20 mg PO DAILY@0630 HPI AWV HPI Details Dentist: up coming appointment Eye: up to date; cataract surgery in January in both eyes Snellen: Right: Left: Corrected vision: yes, glasses STI screening:n/a Colonoscopy: aged out PHQ-9: Flu: up to date COVID:x3 Tdap:2021 Diet: reports that he eats a lot of drunk food eater. Even though, he eats small amount at a day Exercise:gym 3-4 times a weeks, golfing regularly Patient has a healthcare proxy but this is not on file, gave the patient form to fill out; The patient has MOLST form on file. The cycle care reviewed with the patient. would like to try physical therapy Health Maintenance: - Pneumococcal Vaccine: Up to date - Shingles Vaccine: Completed - Cataract Surgery: Completed on both ey es, follow-up with ophthalmology pending - Regular exercise routine: Gym 3-4 time s a week, walking, and active lifestyle - Upcoming dental care consultations - Audiological evaluation planned before upcoming physical examination HPI Comments History of Present Illness Details reviewed past medical history- yes reviewed surgical / hospitalization history- yes reviewed current medications- yes reviewed family history- yes home safety throw rugs? no grab bars? yes-in the shower raised toilet seat? no working smoke detectors? yes activities of daily living difficulty bathing or showering? no difficulty dressing? no difficulty using the toilet?no difficulty getting in and out of bed? no difficulty walking?no receives help from other person's with any of the above tasks? instrumental activities of daily living uses telephone - yes gets to place out of walking distance-yes go shopping for groceries- yes repairs own meals- yes does own minor home maintenance- yes does own laundry- yes does own housework-yes manages own money- yes currently takes medication- yes end of life planning discussed advanced directives- yes advanced directives on file? no discussed wishes expressed in advanced directives. fall risk have you had any falls with injuries in the past year? no have you had 2 or more falls in the past year? no fall risk assessment: yes [facility] Medical History Preop exam for internal medicine Cirrhosis GERD (gastroesophageal reflux disease) Kidney stone Hepatitis B COVID-19 vaccine series completed Sleep apnea BPH (benign prostatic hyperplasia) Obesity Arthritis of left hip Anxiety Hip pain Surgical History History of total left hip arthroplasty History of lithotripsy H/O colonoscopy History of back surgery History of appendectomy History of tonsillectomy Family History Father No problems noted. Mother No problems noted. Daughter No problems noted. Social History Housing: House Are you a primary care trainer to a significant other at home: No Do you presently have visiting nurse or other home services: No Alcohol intake: never Patient Tobacco Use Status: Never used Tobacco Tobacco use type: Cigarette e-Cigarette/Vaping Use: Never Used Second Hand Smoke Exposure: No service: No 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al status: retired 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 Cognitive needs: No Hearing needs: No Vision needs: Yes Questionnaire Medicare Wellness Checkup [age] What gender do you identify with?: male During the past 4 weeks, how much have you been bothered by emotional problems such as feeling anxious, depressed, irritable, sad or downhearted, and blue?: not at all During the past 4 weeks, has your physical & emotional health limited your social activities with family, friends, neighbors, or groups?: slightly During the past 4 weeks, how much bodily pain have you generally had?: severe pain (Lt hip) During the past 4 weeks, was someone available to help you if you needed & wanted help?: yes, as much as I wanted During the past 4 weeks, what was the hardest physical activity you could do for at least 2 minutes?: heavy Can you get to places out of walking distance without help? (For eg., can you travel alone on buses, taxis or drive your car?): Yes Can you go shopping for groceries or clothes without someone's help?: Yes Can you prepare your own meals?: Yes Can you do your housework without help?: Yes Because of any health problems, do you need the help of another person with your personal care needs such as eating, bathing, dressing or getting around the house?: No Can you handle your own money without help?: Yes During the past 4 weeks, how would you rate your health in general?: very good During the past 4 weeks how have things been going for you?: pretty well Are you having difficulties driving your car?: no Do you always fasten your seat belt when you are in a car?: yes, usually During past 4 weeks, have you been bothered by the following: never: Falling or dizzy when standing up, Sexual problems?, Trouble eating well?, Problems using the telephone? and Tiredness or fatigue? and seldom: Teeth or denture problems? Have you fallen 2 or more times in the past year?: No Are you afraid of falling?: No Are you a smoker?: no During the past 4 weeks, how many drinks of wine, beer, or other alcoholic beverages did you have?: 1 drink or less per week Do you exercise for about 20 minutes 3 or more times a week?: yes, most of the time Have you been given information to help with the following?: yes: Hazards in your house that might hurt you? and yes: Keeping track of your medications? How often do you have trouble taking medicines the way you have been told to take them?: I always take medicine as prescribed How confident are you that you can control & manage most of your health problems?: very confident What is your race?: White Mini Mental State Exam (MMSE) Orientation What is the (year) (season) (date) (day) (month)?: year, season, date, day and month Where are we (state) (county) (town or city) (hospital) (floor)?: state, county, town or city, hospital/clinic and floor Score Score: 10 Activity of Daily Living Bathing - sponge bath, tub bath or shower: receives no assistance (gets in/out by self, if usual bathing means Dressing - getting clothes from closets & drawers, including inner/outer garments & fasteners.: gets clothes & gets completely dressed without help Toileting - going to the 'toilet room' for urine/bowel elimination & cleaning self/arranging clothes: goes to toilet room, cleans self, arranges clothes without help Transfer: moves in & out of bed and chair without help (may use support object) Continence: controls urination/bowel movements completely by self Feeding: feeds self without help Total Score: 0 Information obtained from: patient Using telephone: independent Traveling: independent Shopping: independent Preparing meals: independent Housework: independent Taking medicine: independent Managing money: independent PHQ-9 Over the last 2 weeks, how often have you been bothered by any of the following problems? 1. Little interest or pleasure in doing things: not at all 2. Feeling down, depressed, or hopeless: not at all 3. Trouble falling or staying asleep, or sleeping too much: not at all 4. Feeling tired or having little energy: not at all 5. Poor appetite or overeating: not at all 6. Feeling bad about yourself - or that you are a failure or have let yourself or your family down: not at all 7. Trouble concentrating on things, such as reading the newspaper or watching television: not at all 8. Moving or speaking so slowly that other people could have noticed. Or the opposite - being so fidgety or restless that you have been moving around a lot more than usual: not at all 9. Thoughts that you would be better off or of hurting yourself in some way: not at all Total score: 0 Depression Screening Interpretation: Negative Depression Screening Done: Yes Source: Developed by Drs. Gene Villafuerte, Renu Acharya, Crescencio Corbin and colleagues, with an educational chris from [employer]. Thrive Questionnaire Date Thrive assessed: 08/12/24 I am a: Patient What is your living situation today?: I have a steady place to live Within the past 12 months, did the food you bought not last and you didn't have the money to get more?: Never true Within the past 12 months, did you worry whether your food would run out before you got money to buy more?: Never true Do you have trouble paying for medicines?: No Do you have trouble getting transportation to medical appointments?: No Do you have trouble paying your heating and electricity bill?: No Do you have trouble taking care of your child, family member or friend?: No Do you have trouble with day-to-day activities such as bathing, preparing meals, shopping, managing finances, etc.?: No Are you currently unemployed and looking for a job?: No Are you interested in more education?: No Please select the resources that you would like help with: None Currently or been in a relationship where the following occur: No concerns reported THRIVE Score: 0 MARCO ANTONIO-7 AMB Questionnaire MARCO ANTONIO-7 Date MARCO ANTONIO - 7 assessed: 07/22/24 Source: Developed by Drs. Gene Villafuerte, Crescencio Mcdaniels and colleagues, with an educational chris from [employer]. Review of Systems Const Denies headache(s) Eyes Denies loss of vision ENT Denies vertigo, Denies dizziness, Denies headache(s) and Denies sore throat Card Denies chest pain, Denies leg edema and Denies lightheadedness Resp Denies cough, Denies hemoptysis and Denies wheezing GI Denies abdominal pain, Denies melena, Denies constipation, Denies diarrhea and Denies vomiting Denies dysuria, Denies urinary frequency and Denies urinary urgency Musc Denies arthralgias, Denies joint swelling, Denies numbness and Denies tingling Neuro Denies behavioral changes, Denies vertigo, Denies dizziness, Denies headache(s), Denies loss of vision, Denies memory loss, Denies numbness and Denies tingling Psych Denies anxiety, Denies behavioral changes, Denies depression, Denies memory loss and Denies panic attacks Jez/Lymph Denies easy bleeding and Denies easy bruising Aller/Immun Denies wheezing Physical Exam Vital Signs: Last Vital Signs Temp 98.5 F 08/12/24 15:47 Pulse 76 08/12/24 15:47 Resp 22 H 08/12/24 15:47 BP 134/78 08/12/24 15:47 Pulse Ox 95 08/12/24 15:47 Oxygen Delivery Method Room Air 08/12/24 15:47 BMI result Body Mass Index 35.1 Const Other: IPPE/AWV: Balance Romberg Yes . Tandem walk Yes. with slight difficult Walk and Turn Yes . Rise from sit to stand Yes . Vision Corrective lens No Vision screen pass Hearing Whisper test pass . yeas Urinary incont. no. EKG Not clinically necessary. Assessment & Plan Assessment & Plan (1) Encounter for annual wellness exam in Medicare patient: Comment: romberg neg; passed whisper test Code(s): Z00.00 - Encounter for general adult medical examination without abnormal findings Plan: Preventive guidelines reviewed with the patient. No recent labs to review. Overall. The patient is doing fairly well. (2) Anxiety: Comment: 20 min reviewing chart evaluating patient and documenting Code(s): F41.9 - Anxiety disorder, unspecified Plan: Encouraged CBT Continue clonazepam 0.5 mg b.i.d. Denies SI/HI (3) Thrombocytopenia: Code(s): D69.6 - Thrombocytopenia, unspecified Plan: The patient has history of thrombocytopenia. PLT 89 01/2024, unclear of the cause at this time. Encouraged adequadration. Will continue to monitor CBC (4) Obesity: Code(s): E66.9 - Obesity, unspecified Qualifiers: Obesity type: due to excess calories Obesity classification: adult class 1 (BMI 30 - 34.9) Serious obesity comorbidity presence: with serious comorbidity Body mass index: BMI 34.0-34.9 Qualified Code(s): E66.811 - Obesity, class 1; E66.09 - Other obesity due to excess calories; Z68.34 - Body mass index [BMI] 34.0-34.9, adult Plan: Encouraged to exercise for at least 30 minutes a day/5 days a week Healthy eating discussed. Encouraged to eat fruits/vegetables, protein- fish/baked chicken, and to avoid salty/fried foods, sweets, caffeine and carbohydrates. Encouraged to increase water intake 6-8 glasses a day (5) BPH loc w urin obs/LUTS: Code(s): N40.1 - Benign prostatic hyperplasia with lower urinary tract symptoms Plan: HX of BPH, current not on any treatments and reports that he is doing fairly well without any bothersome symptoms (6) Erectile dysfunction: Code(s): N52.9 - Male erectile dysfunction, unspecified Qualifiers: Erectile dysfunction type: unspecified Qualified Code(s): N52.9 - Male erectile dysfunction, unspecified Plan: The patient is current not taking any medication for this. 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 Continue allopurinol 100mg (8) Obstructive sleep apnea: Code(s): G47.33 - Obstructive sleep apnea (adult) (pediatric) Plan: continue cpap (9) Balance problem: Code(s): R26.89 - Other abnormalities of gait and mobility Plan: PT referral placed Plan The patient to follow up in the 4 months Orders: Orders Complete Blood Count Auto Diff 4 Months N20.0 - Calculus of kidney, N13.30 - Unspecified hydronephrosis, G47.33 - Obstructive sleep apnea (adult) (pediatric), D69.6 - Thrombocytopenia, unspecified, E66.811 - Obesity, class 1, E66.09 - Other obesity due to excess calories, Z68.34 - Body mass index [BMI] 34.0-34.9, adult, F41.9 - Anxiety disorder, unspecified, Z00.00 - Encounter for general adult medical examination without abnormal findings Lipid Panel 4 Months N20.0 - Calculus of kidney, N13.30 - Unspecified hydronephrosis, G47.33 - Obstructive sleep apnea (adult) (pediatric), D69.6 - Thrombocytopenia, unspecified, E66.811 - Obesity, class 1, E66.09 - Other obesity due to excess calories, Z68.34 - Body mass index [BMI] 34.0-34.9, adult, F41.9 - Anxiety disorder, unspecified, Z00.00 - Encounter for general adult medical examination without abnormal findings UA CC w/rflx Micro + Cult 4 Months N20.0 - Calculus of kidney, N13.30 - Unspecified hydronephrosis, G47.33 - Obstructive sleep apnea (adult) (pediatric), D69.6 - Thrombocytopenia, unspecified, E66.811 - Obesity, class 1, E66.09 - Other obesity due to excess calories, Z68.34 - Body mass index [BMI] 34.0-34.9, adult, F41.9 - Anxiety disorder, unspecified, Z00.00 - Encounter for general adult medical examination without abnormal findings PSA,Total (Free>4and<10) 4 Months N20.0 - Calculus of kidney, N13.30 - Unspecified hydronephrosis, G47.33 - Obstructive sleep apnea (adult) (pediatric), D69.6 - Thrombocytopenia, unspecified, E66.811 - Obesity, class 1, E66.09 - Other obesity due to excess calories, Z68.34 - Body mass index [BMI] 34.0-34.9, adult, F41.9 - Anxiety disorder, unspecified, Z00.00 - Encounter for general adult medical examination without abnormal findings Comprehensive [place]. Panel Fast 4 Months N20.0 - Calculus of kidney, N13.30 - Unspecified hydronephrosis, G47.33 - Obstructive sleep apnea (adult) (pediatric), D69.6 - Thrombocytopenia, unspecified, E66.811 - Obesity, class 1, E66.09 - Other obesity due to excess calories, Z68.34 - Body mass index [BMI] 34.0-34.9, adult, F41.9 - Anxiety disorder, unspecified, Z00.00 - Encounter for general adult medical examination without abnormal findings TSH reflex Free T4 4 Months N20.0 - Calculus of kidney, N13.30 - Unspecified hydronephrosis, G47.33 - Obstructive sleep apnea (adult) (pediatric), D69.6 - Thrombocytopenia, unspecified, E66.811 - Obesity, class 1, E66.09 - Other obesity due to excess calories, Z68.34 - Body mass index [BMI] 34.0-34.9, adult, F41.9 - Anxiety disorder, unspecified, Z00.00 - Encounter for general adult medical examination without abnormal findings Vitamin D 25-OH Total 4 Months N20.0 - Calculus of kidney, N13.30 - Unspecified hydronephrosis, G47.33 - Obstructive sleep apnea (adult) (pediatric), D69.6 - Thrombocytopenia, unspecified, E66.811 - Obesity, class 1, E66.09 - Other obesity due to excess calories, Z68.34 - Body mass index [BMI] 34.0-34.9, adult, F41.9 - Anxiety disorder, unspecified, Z00.00 - Encounter for general adult medical examination without abnormal findings Hemoglobin A1c 4 Months N20.0 - Calculus of kidney, N13.30 - Unspecified hydronephrosis, G47.33 - Obstructive sleep apnea (adult) (pediatric), D69.6 - Thrombocytopenia, unspecified, E66.811 - Obesity, class 1, E66.09 - Other obesi ty due to excess calories, Z68.34 - Body mass index [BMI] 34.0-34.9, adult, F41.9 - Anxiety disorder, unspecified, Z00.00 - Encounter for general adult medical examination without abnormal findings PT Evaluation and Treatment 08/12/ R26.89 - Other abnormalities of gait and mobility Quality Reporting (2019) Depression/Bipolar (159/160/161/177) PHQ-9: Total score: 0 Coding Level of Care Code Medicare Subsequent (G0439) Diagnoses Encounter for annual wellness exam in Medicare patient Z00.00 Anxiety F41.9 Thrombocytopenia D69.6 Class 1 obesity due to excess calories with serious comorbidity and body mass index (BMI) of 34.0 to 34.9 in adult E66.811; E66.09; Z68.34 Obesity type: due to excess calories Obesity classification: adult class 1 (BMI 30 - 34.9) Serious obesity comorbidity presence: with serious comorbidity Body mass index: BMI 34.0-34.9 BPH loc w urin obs/LUTS N40.1 Erectile dysfunction, unspecified erectile dysfunction type N52.9 Erectile dysfunction type: unspecified Chronic gout of foot, unspecified cause, unspecified laterality [id number].0790 Gout site: foot Gout etiology: unspecified cause Chronicity: chronic Laterality: unspecified laterality Obstructive sleep apnea G47.33 Balance problem R26.89 Time Spent (min) 37
--- OUTSIDE RECORDS SUMMARY | 2024-08-12 18:03 | XMS_ITS | Continuity of Care Document ---
Author Organization [facility] Address [address] [place] [address] Phone Care Team Providers Care Oncology Physician Name Role Phone Oliver PRINGLE, RVT, JOSE [...] Mins- [place] & [place] [facility] MD TREVINO, [address] [place] [address] Dr Blandon [address], [id number], [place] tel:[phone] [facility] Venous insufficiency (chronic) (peripheral)Lo calized edema Oct-0 4 Oliver PRINGLE RVT, RPVI Robert. [address] [facility] [address], [address], [place], [id number] , [place]. tel:[phone] Referring Provider: Raji Amanda MD, [address] [facility] SUITE [facility], [place], [address]. tel:[phone] [facility], [address] [place] [address] Dr Blandon 1000[facility] 1000[place], [id number], [place] tel:[phone] [facility] Chronic venous hypertension (idiopathic) with other complications of bilateral lower extremity Nov-0 4 Oliver PRINGLE RVT, RPVI Robert. [address] [place] [address], Suite [facility], [place], [id number] , [place]. tel:[phone] Referring Provider: Raji Amanda MD, [address] [facility] SUITE [facility], [place], [address]. tel:[phone] [facility], [address] [place] [address] Dr Blandon [address]ohan [place], [id number], [place] tel:[phone] [facility] Encounter for follow-up examination after completed treatment for conditions other than malignant neChronic venous hypertension (idiopathic) with other complications of left lower extremity 4 Oliver PRINGLE RVT, JOSE DAVID [place]. On license of [facility] [facility], [address], [place], [id number] , [place]. tel:[phone] Referring Provider: Gene Boyd MD, RVT, JOSE DAVID, [address] [place] [address] Suite [facility], [place], [address] . 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 [address] [place] [address], [address], [place], [id number] , [place]. [phone] [facility], [address] [place] [address] [address]ohan [place], [id number], [place] tel:[phone] [facility] [place] Varicose veins of left lower extremity with other complications 4 Oliver PRINGLE RVT, RPVI Robert. [address] [place] [address], [place] [address], [place], [id number] , [place]. [phone] Referring Provider: Gene Boyd MD, RVT, RPVI, [address] [place] [address] [address], [place], [address] . tel:[phone] [facility], [address] [place] [address] [facility] [address] 1000Rohan [place], [id number], [place] tel:[phone] [facility] [place] Encounter for follow-up examination after completed treatment for conditions other than malignant nePain in right leg 4 Oliver PRINGLE RVT, RPVI Robert. [address] [place] [address], [address], [place], [id number] , [place]. [phone] Referring Provider: Gene Boyd MD, RVT, JOSE DAVID, [address] [place] [address] [address], [place], [address] . tel:[phone] [facility], [address] [place] [address] Dr Blandon [address] 1000[place]ohan [place], [id number], [place] tel:[phone] [facility] [place] No Information 4 Oliver PRINGLE RVT, RPVI Robert. [address] [place] [address], [facility] [place], [id number] , [place]. [phone] [facility], [address] [place] [address] Dr Blandon 999Rohan [place], [id number], [place] tel:[phone] [facility] [place] Varicose veins of right lower extremity with other complications 4 Oliver PRINGLE RVT, RPVI Robert. [address] [place] [address], [place], [id number] , [place]. tel:[phone] Offic/outpt E&m Estab 5 Min Trial- Telemedicine CT & [place] [facility], [address] [place] [address] Dr Blandon 1000Rohan [place], [id number], [place] tel:[phone] [facility] [place] Chronic venous hypertension (idiopathic) with other complications of bilateral lower extremityCramp and spasmRestless legs syndrome 4 Oliver PRINGLE RVT, RPVI Robert. [address] [place] [address], [place], [id number] , [place]. tel:[phone] Office/Oupt E&M New Pt 45 Mins- [place] & [place] [facility], [address] [place] [address] Dr Blandon 1000Rohan [place], [id number], [place] tel:[phone] [facility] [place] Varicose veins of bilateral lower extremities with other complicationsR estless legs syndromeCramp and spasmLocalized edema 4 Oliver PRINGLE RVT, RPVI Robert. [address] [place] [address], [place], [id number] , [place]. tel:[phone] [facility], [address] [place] [address] Dr Blandon 1000Rohan [place], [id number], [place] tel:[phone] [facility] [place] Varicose veins of bilateral lower extremities with pain 4 Oliver PRINGLE RVT, RPVI Robert. [address] [place] [address], [facility] [place], [id number] , [place]. tel:[phone] Referring Provider: Gene Boyd MD, RVT, RPVI, [address] [facility] [address], [facility] [place], [address] . tel:[phone] Family History Family Member Type Diagnosis Age At Onset No Information Payers Payer name Insurance type Covered libertarian ID Authoriza tion(s) Medicare MEHDI SHRUTHI [id number] BCBS MEHDI [id number] Medical Assistance MEHDI SHUKLA [id number] Social History Type Description Quantity Date Captured [...] Related to Venous Insufficiency (Chronic / Peripheral) Pre and post instruc tions reviewed and provided Related to Chronic venous hypertension (idiopathic) with other complications of bilateral lower extremity Patient education booklet given Related to Chronic [...]
== END 2024-08-12 17:21 | disposition home or self-care (01) ==
LOC: HO.HMCH 15:32
DX: Z00.00 Encounter for general adult medical examination without abnormal findings (principal); F41.9 Anxiety disorder, unspecified; D69.6 Thrombocytopenia, unspecified; E66.811 Obesity, class 1; Z68.34 Body mass index [BMI] 34.0-34.9, adult; N40.1 Benign prostatic hyperplasia with lower urinary tract symptoms; N52.9 Male erectile dysfunction, unspecified; M1A.0790 Idiopathic chronic gout, unspecified ankle and foot, without tophus (tophi); G47.33 Obstructive sleep apnea (adult) (pediatric); R26.89 Other abnormalities of gait and mobility

== ENCOUNTER 2024-08-25 13:50 | Outpatient (AMB) | payer MEDICARE, SELFPAY ==
--- NOTE | 2024-08-25 13:58 | MHC.OFFVIS ---
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 Director Of Medicare Required: No Accompanied by: Self / Same As Patient Allergies No Known Allergies Allergy (Verified 08/12/24 16:20) Medication List - Last Reconciled 08/25/24 by Anant Rutherford MD albuterol sulfate 90 mcg/actuation 2 puffs inhalation Q4-6H PRN allopurinol 100 mg PO .QOD 90 days benzonatate 200 mg PO BID PRN clonazepam 0.5 mg PO BID cyanocobalamin (vitamin B-12) 1,000 mcg PO DAILY fluticasone propionate 50 mcg/actuation 1 spray intranasal BID hydrochlorothiazide 12.5 mg PO DAILY loratadine 10 mg PO DAILY omeprazole 20 mg PO DAILY@0630 HPI Comments Details: The patient is a 78-year-old male presenting with a need for cardiovascular evaluation. Earlier this year, he was hospitalized due to a viral infection, experiencing severe symptoms that necessitated an overnight stay. During this time, a cardiology evaluation was recommended, prompting the current visit. However, not entirely clear as to what prompted that recommendation as he did not have any clear-cut cardiac symptoms or other issues at that time. He reports no prior cardiac issues such as heart attacks or stents. The patient leads an active lifestyle, engaging in part-time work and regular gym visits, though he acknowledges a diet high in junk food. [facility] Medical History Preop exam for internal medicine Cirrhosis GERD (gastroesophageal reflux disease) Kidney stone Hepatitis B COVID-19 vaccine series completed Sleep apnea BPH (benign prostatic hyperplasia) Obesity Arthritis of left hip Anxiety Hip pain Surgical History History of total left hip arthroplasty History of lithotripsy H/O colonoscopy History of back surgery History of appendectomy History of tonsillectomy Family History Father No problems noted. Mother No problems noted. Daughter No problems noted. Social History (Reviewed 08/25/24 @ 14:03 by JESSE Du Housing: House Are you a primary livestock caretaker to a significant other at home: No Do you presently have visiting nurse or other home services: No Alcohol intake: never Patient Tobacco Use Status: Never used Tobacco Tobacco use type: Cigarette e-Cigarette/Vaping Use: Never Used Second Hand Smoke Exposure: No service: No 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al status: retired 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 Cognitive needs: No Hearing needs: No Vision needs: Yes Review of Systems Const Denies chills, Denies fatigue, Denies fever(s), Denies frequent falls, Denies weakness, Denies weight gain and Denies weight loss ENT Denies dizziness Card Denies chest pain, Denies leg edema, Denies lightheadedness, Denies palpitations, Denies dyspnea, Denies dyspnea on exertion and Denies orthopnea Resp Denies cough, Denies dyspnea and Denies dyspnea on exertion GI Denies bloating and Denies change in bowel habits Musc Denies muscle weakness, Denies numbness and Denies tingling Neuro Denies dizziness, Denies frequent falls, Denies numbness, Denies tingling and Denies weakness Endo Denies fatigue and Denies palpitations Physical Exam Vital Signs: Last Vital Signs Pulse 85 08/25/24 14:01 BP 140/70 H 08/25/24 14:01 BMI result Body Mass Index 35.6 Const General: comfortable and no acute distress Orientation/consciousness: patient oriented x3 HEENT Other: Unremarkable Head: Yes normal to inspection Neck Neck: Yes normal visual inspection Chest Chest palpation & inspection: normal inspection of the chest Resp Auscultation: clear to auscultation bilaterally Cardio Palpation: normal PMI Heart sounds: S1 normal heart sound present, S2 normal heart sound present, no gallops, no murmurs and no rubs GI Palpation (GI): Soft to palpation Back/Spine/Pelvis Other: unremarkable Skin General skin exam: no rashes or lesions noted Neuro General: patient oriented x3 Extrem General: Yes normal to inspection Psych Mental Status: mental status grossly normal Office Procedures EKG Details: EKG with underlying sinus rhythm at 85/Min; possible old inferior infarct; LVH versus normal variant; [place] [address]-[place]kt[place], Complete Assessment & Plan Assessment & Plan (1) Abnormal EKG: Code(s): R94.31 - Abnormal electrocardiogram [ECG] [EKG] Category: Medical (2) Coronary artery calcification seen on CT scan: Code(s): I25.10 - Atherosclerotic heart disease of iroquois coronary artery without angina pectoris Category: Medical Plan Cardiac studies reviewed. EKG as above shows possible inferior wall infarct but not clear if it is just from body habitus. In his CT scan from [facility], description of mild cardiomegaly/moderate coronary artery calcification and atherosclerotic calcification of the great vessels. However, vascular calcification is frequently seen in someone of his age. Patient would like comprehensive cardiac workup. In this situation, we will proceed with an echocardiogram for cardiac function including inferior wall contractility. Exercise stress perfusion imaging study to look for any inferior infarct/ischemia. Follow-up after the above. Discussion Notes I discussed with the patient the importance of undergoing a heart ultrasound and stress test to evaluate his cardiovascular health, especially considering his age and previous hospital recommendations. Patient was informed and verbally consented to the use of an ambient scribe for clinic note documentation during this visit. 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 - contact us with any cardiac symptoms including chest pain - keep your follow-up appointment to discuss results. Coding Level of Care Code New Pt Level 4 (16099) Complex EM visit Add On G2211 Diagnoses Abnormal EKG R94.31 Coronary artery calcification seen on CT scan I25.10 CPT Codes EKG - CPT: 50999-Fckiyzaloudnyzuuo, Complete ([id number])
[2024-08-25 14:01] VITALS: BP 140/70; PULSE 85; BMI 35.6
--- OUTSIDE RECORDS SUMMARY | 2024-08-25 14:21 | XMS_ITS | Clinical Summary ---
Author Organization [facility] Address [address] [place] [address] Phone Care Team Providers Care Rehabilitation Caseworker Name Role Phone Raji Amanda MD Primary Care Provider [phone] Allergies No known active allergies Medications allopurinoL [...] Encounters Date Type Department Care Team Description 08/14/2024 3:00 PM EDT [facility] [address] [place] [address] Crow Flores MD Wheezing (Primary Dx); Postinflammatory pulmonary fibrosis (CMS/HCC V24, CMS/HCC V28); Obesity (BMI 30-39.9) 06/30/2024 8:05 AM EDT - 06/30/2024 11:59 PM EDT Hospital Encounter [facility] Pulmonary [address] [place] [address] Wheezing Discharge Disposition: Home or Self Care from Last 3 Months Social History Tobacco Use Types Packs/Day Years Used Date Smoking Tobacco: Never Passive Smoke Exposure: Never Smokeless Tobacco: Never Alcohol Use Standard [...] for your loved ones. For example, child abuse worker or elderly care for an older adult? [...] Sign Reading Time Taken Comments Blood Pressure 130/71 08/14/2024 2:32 PM EDT Pulse 78 08/14/2024 2:32 PM EDT Temperature 35.6 C (96 F) 08/14/2024 2:32 PM EDT Respiratory Rate 18 08/14/2024 2:32 PM EDT Oxygen Saturation 98% 08/14/2024 2:32 PM EDT Inhaled Oxygen Concentration - - Weight 117 kg (258 lb 9.6 oz) 08/14/2024 2:32 PM EDT Height 182.9 cm (6') 08/14/2024 2:32 PM EDT Body Mass Index 35.07 08/14/2024 2:32 PM EDT Plan of Treatment Upcoming Encounters Date Type Department Care Team (Late st Contact Info) Description 09/03/2024 7:15 AM EDT Appointment [facility] CT Scan [address] [place] [phone] 09/16/2024 3:45 PM EDT Office Visit Pulmonolgy - [place] [address] [address] Crow Flores MD [address] [address] Health Maintenance Due Date Last Done Comments [...] Procedure Name Priority Date/Time Associated Diagnosis Comments PULMONARY FUNCTION TESTING Routine 08/14/2024 3:13 PM EDT HC SPIROMETRY BRONCHODILATION RESPONSIVENESS PRE/POST BRONCHODILATOR ADMINISTRATION Routine 06/30/2024 9:15 AM EDT Wheezing BASIC METABOLIC PANEL Routine 03/31/2024 6:05 AM EST from Last 3 Months or Most Recently Relevant to Health Maintenance Results * Pulmonary function testing: (08/14/2024 3:13 PM EDT) us Historical Provider PFT ORDERABLES Final Res ult * Pulmonary function testing: Carbon Monoxide Diffusing Capacity, Nitrogen Wash Out, Spirometry with Bronchodilator (06/30/2024 9:15 AM EDT) Narrative Andra Medel MD - 06/30/2024 5:45 PM EDT FEV1/FVC 76%. FEV1 2.35 at 82%. FVC 81%. No bronchodilator response. TLC 60% with Z-score of -4.29. RV 44%. DLCO 81% even when adjusted No obstruction. Moderate restriction. And no decrease in diffusion. Findings consistent with moderate restrictive lung disease. Crow Flores MD PFT ORDERABLES Final Result * (ABNORMAL) Basic metabolic panel (03/31/2024 6:05 AM EST) Sodium 139 133 - 145 mmol/L LAB CHEMISTRY METHOD 03/31/2024 7:52 AM [facility] Potassium 3.8 3.5 - 5.5 mmol/L LAB CHEMISTRY METHOD 03/31/2024 7:52 AM [facility] Chloride 108 96 - 110 mmol/L LAB CHEMISTRY METHOD 03/31/2024 7:52 AM [facility] CO2 27 21 - 32 mmol/L LAB CHEMISTRY METHOD 03/31/2024 7:52 AM [facility] Anion Gap 4 3 - 11 LAB CHEMISTRY METHOD 03/31/2024 7:52 AM [facility] Glucose 93 70 - 100 mg/dL LAB CHEMISTRY METHOD 03/31/2024 7:52 AM [facility] BUN 19 5 - 25 mg/dL LAB CHEMISTRY METHOD 03/31/2024 7:52 AM EST [facility] Creatinine 0.99 0.70 - 1.30 mg/dL LAB CHEMISTRY METHOD 03/31/2024 7:52 AM EST [facility] eGFR 77 >=60 mL/min/1. 73m2 LAB CHEMISTRY METHOD 03/31/2024 7:52 AM [facility] Comment:Calculation based on the Chronic Kidney Disease Epidemiology Collaboration (CKD-EPI) equation refit without adjustment for race. BUN/Creatinine Ratio 19.2 LAB CHEMISTRY METHOD 03/31/2024 7:52 AM [facility] Calcium 7.9(L) 8.5 - 10.5 mg/dL LAB CHEMISTRY METHOD 03/31/2024 7:52 AM [facility] Blood Venous blood specimen / Unknown Venipuncture / Unknown 03/31/2024 6:05 AM EST 03/31/2024 7:14 AM EST us Leland Esteban MD LAB BLOOD ORDERABLES Final Res ult [facility] [address] [place] [address], from Last 3 Months or Most Recently Relevant to Health Maintenance Additional Health Concerns Infection Onset Date Last Indicated Norovirus 03/31/2024 03/31/2024 Insurance [place] Advance Directives * Full Code - Default [...] currently active code status orders. Care Teams Rehabilitation Caseworker Relationship Specialty Start Date End Date Raji Amanda MD [address] [place] [address] [address] [place] [address] PCP - General Internal Medicine 03/30/24
--- OUTSIDE RECORDS SUMMARY | 2024-08-25 14:21 | XMS_ITS | Data Portability ---
Author Organization [facility], [facility] Address [address] [place] [address] Care Team Providers Care Legislative Correspondent Name Role Phone PEDRITODNONA PRETTY Primary Care Provider Assessment Encounter Date Assessment [...] limits. He is planning to see Dr. Velzáquez to discuss a possible bursectomy. He can follow up for routine surveillance status post left total hip arthroplasty. [email or web address] Not available 08/21/2023 07:30:04 Plan of Treatment Reminders Order Date Submit Date Provider Last Modified By Organization Details Last Modified Time Details Appointments None record ed. Lab None record ed. Referral None record ed. Procedures None record ed. Surgeries None record ed. Imaging XR, hip, unilat eral, 2 or 3 view - 204 lthr pain [place] 2021 024 08/17/19 [facility], [address], [facility] [address], [place], [address], 4 08:58:16 Medication Orders None record ed. [...] a4ajBk vP9nXo QUaueC m3YtLR FvZlgJ JJ8mAn HZtai3 9s3503 AC0KuY nmAUqT eUC8mr 84%3D INTERFACE [facility] [address], [place], [address], 08/17/2023 14:30:49 08/17/19 24 08/17/2023 XR, hip, unila teral , 2 or 3 view http:/ [email or web address] ?Encry pted=s hAaTro YD8dLq bEUv6g %2BXZw aYqtaq 0bqfl% 2Fg9IQ a4ajBk vP9nXo QUaueC m3YtLR FvZlgJ JJ8mAn HZtai3 9l5105 AC0KuY nmAUqT eUC8mr 84%3D INTERFACE [facility] [address], [place], [address], 08/17/2023 14:30:51 10/27/19 24 10/18/2022 imagi ng/di agnos tic resul t No observ ation record ed. [email or web address] Not Available 09/28 10:43:11 Result Notes Documentation Provider Name and Address Organization Details Recorded Time Xr, Hip, Unilateral, 2 Or 3 View : [email or web address]? Encrypted=nvNsYmrLP6qYsmL Uv6g%7OPSryTczft1zjzl%2Fg 3ESw9hnTvhB9gTjBIgemQc0Ee ULHwTqjHHD1dNwBAfoq54c086 2OT3LyYbbTCtBxIQ6jp03%3D Not Available [facility] 08/17/2023 14:3 0:50 Xr, Hip, Unilateral, 2 Or 3 View : [email or web address]? Encrypted=qrOzFyzTN0uDpqM Uv6g%8QABndWgjzj2diqn%2Fg 1ELc4rbPcyI8fApZPoilIj7Zt JWOsVjpWVP5sGqPMvzz54o501 7QH8ZoHpdBRfHlAV6wi29%3D Not Available [facility] 08/17/2023 14:3 0:51 Procedures Surgical History Date Name Laterality Status Provider Name and Address Organization Details Recorded Time 4 Hip Kenalog 1cc Injection, L/R completed Ritchie Miller MD [address] [place] [address] [address], [place], [address], [facility] 08/21/2023 07:30:14 Imaging Results [...] Updated DateTime 03/14/2024 182.88 cm 34.6 kg/m2 532684.05 g DONNIE MANNING [facility] 03/14/2024 08:06:08 Date Recorded Body height Provider Name an d Address Organization Details Last Updated DateTime 08/17/2023 180.34 cm OLGA MASTERSON [facility] 08/17/2023 14:22:04 Date Recorded Body height Body mass index (BMI) Body weight Provider Name and Address Organization Details Last Updated DateTime 10/19/2023 180.34 cm 35.4 kg/m2 393839.46 g Anna Lawrence [facility] 10/19/2023 09:24:31 Social History None recorded. Functional Status None recorded. Mental Status None recorded. Family History Nothing Reported. Medical History No medical history recorded. Past Encounters Encounter ID Performer Location Encounter Start Date Encounter Closed Date Diagnosis/Indication Diagnosis SNOMED-CT Code Diagnosis ICD10 Code Diagnosis Note [id number] MD Humberto Villegas [address] floor [address] [place] [address] 08/17/2023 14:06:06 09/10/2023 08:58:16 History of total replacement of left hip joint [id number] 327843 Z96.642 Trochanter ic bursitis of left hip 7380281049 45144 M70.62 [id number] MD Humberto Camacho [address] floor [address] [place] [address] 10/19/2023 09:10:03 11/13/2023 10:21:40 Trochanteric bursitis of left hip 5124098121 34618 M70.62 [id number] Wong Velázquez MD [facility] [address] floor [address] [place] [address] 03/14/2024 07:41:37 03/28/2024 15:51:44 Trochanteric bursitis of left hip [id number] 07653 M70.62 Health Concerns Section Related Observation LastModified by Organization Detai ls LastModified Time None Recorded Concern Status LastModified by Organization Details LastModified Time None Recorded Advance Directives Directive None Recorded Payers Insurance Date Sequence Insurance Name Policy Number Policy Rust Covered Member ID Rust Member ID Guarantor Name 03/28/2024 2 [place] [id number] Gene Cordero [id number] Gene Cordero 03/14/2024 1 [place] [employer] Gene Cordero [id number] Gene Cordero Notes Date Note Type [...] injection. We discussed the experimental nature and vyq-rk-ymdbet cost with PRP injection. Third option would [...] was provided contact information for our surgical technologist and can call if he would like to start the booking process. Wong Velázquez MD [address] [place] [address] [address], [place], [address], [facility] 10/19/2023 13:45:40 03/14/2024 text/html [...] hip pain with passive hip range of motion.AMRIAH: NegativeLogroll: NegativeSTRENGTH: 5/5 strength to resisted straight [...] injection. We discussed the experimental nature and gtt-ki-cxbngg cost with PRP injection. Third option would [...] start the booking process. Wong Velázquez MD [address] [place] [address] [address], [place], [address], [facility] [place] [facility] 03/14/2024 18:40:13
== END 2024-08-25 14:19 | disposition home or self-care (01) ==
LOC: HO.HCS 13:51
PROVIDERS: Visit Provider Internal Medicine
DX: R94.31 Abnormal electrocardiogram [ECG] [EKG] (principal); I25.10 Atherosclerotic heart disease of native coronary artery without angina pectoris
CPT/HCPCS: 93010; 99204; G2211

== ENCOUNTER → 2024-08-25 13:50 | Outpatient (BNVA) | payer MEDICARE, SELFPAY | PROVIDERS: Visit Provider Internal Medicine | DX: I25.10 Atherosclerotic heart disease of native coronary artery without angina pectoris (principal); R94.31 Abnormal electrocardiogram [ECG] [EKG] | CPT/HCPCS: 93005; 99202 ==

== ENCOUNTER 2024-09-05 16:18 | Outpatient (REF) | payer MEDICARE, SELFPAY ==
--- OUTSIDE RECORDS SUMMARY | 2023-12-04 04:15 | XMS_ITS | Continuity of Care Document ---
Author Organization [facility] Address [address] MD [place] [address] Phone Care Team Providers Care Bag Checker Name Role Phone Oliver PRINGLE, RVT, JOSE [...] Mins- [place] & [place] [facility] Yaz[facility] MD TREVINO, [address] [place] [address] Dr Blandon 1000Suite 1000Rohan MD, [id number], [place] tel:[phone] [facility] Venous insufficiency (chronic) (peripheral)Lo calized edema Oct-0 4 Oliver PRINGLE RVT, RPVI Robert. [address] [facility], [address], [place], [id number] , [place]. tel:[phone] Referring Provider: Raji Amanda MD, [address] [facility] SUITE [facility], [place], [address]. tel:[phone] Vish Hickman Vein Yaz[facility], [address] [place] [address] Dr Blandon 1000[facility] 1000Rohan [place], [id number], [place] tel:[phone] [facility] Chronic venous hypertension (idiopathic) with other complications of bilateral lower extremity Nov-0 4 Oliver PRINGLE RVT, RPVI Robert. [address] [place] [address], Suite [facility], [place], [id number] , [place]. tel:[phone] Referring Provider: Raji Amanda MD, [address] [facility] SUITE [facility], [place], [address]. tel:[phone] Vish [facility] Vein [facility], [address] [place] [address] Dr Blandon 1000Suite 1000Rohan MD, [id number], [place] tel:[phone] [facility] Encounter for follow-up examination after completed treatment for conditions other than malignant neChronic venous hypertension (idiopathic) with other complications of left lower extremity 4 Oliver PRINGLE RVT, JOSE DAVID [place]. [facility]0 [facility], [address], [place], [id number] , [place]. tel:[phone] Referring Provider: Gene Boyd MD, RVT, JOSE DAVID, [address] [place] [address] Suite [facility], [place], [address] . tel:[phone] [facility], [address] [place] [address] Suite 1000Suite 1000Rohan MD, [id number], [place] tel:[phone] [facility] [place] Varicose veins of left lower extremity with other complications 4 Oliver PRINGLE RVT, RPVI Robert. [address] [place] [address], [address], [place], [id number] , [place]. [phone] Vish [facility] Vein Y[facility], [address] [place] [address] Suite [address]Suite 1000Rohan MD, [id number], [place] tel:[phone] [facility] [place] Varicose veins of left lower extremity with other complications 4 Oliver PRINGLE RVT, RPVI Robert. [address] [place] [address], [place] [address], [place], [id number] , [place]. [phone] Referring Provider: Gene Boyd MD, RVT, RPVI, [address] [place] [address] [address], [place], [address] . tel:[phone] Vish Hickman Vein Y[facility], [address] [place] [address] [facility] 1000Suite 1000Rohan MD, [id number], [place] tel:[phone] [facility] [place] Encounter for follow-up examination after completed treatment for conditions other than malignant nePain in right leg 4 Oliver PRINGLE RVT, RPVI Robert. [address] [place] [address], [address], [place], [id number] , [place]. [phone] Referring Provider: Gene Boyd MD, RVT, JOSE DAVID, [address] [place] [address] [address], [place], [address] . tel:[phone] [facility]ish [facility], [address] [place] [address] Dr Blandon 1000Suite 1000Rohan MD, [id number], [place] tel:[phone] [facility] [place] No Information 4 Oliver PRINGLE RVT, RPVI Robert. [address] [place] [address], [facility] [place], [id number] , [place]. [phone] [facility], [address] [place] [address] Dr Blandon 999Rohan glover MD, [id number], [place] tel:[phone] [facility] [place] Varicose veins of right lower extremity with other complications 4 Oliver PRINGLE RVT, RPVI Robert. [address] [place] [address], [place], [place], [id number] , [place]. tel:[phone] Offic/outpt E&m Estab 5 Min Trial- Telemedicine CT & [place] [facility], [address] [place] [address] Dr Blandon 1000Rohan glover MD, [id number], [place] tel:[phone] [facility] [place] Chronic venous hypertension (idiopathic) with other complications of bilateral lower extremityCramp and spasmRestless legs syndrome 4 Oliver PRINGLE RVT, RPVI Robert. [address] [place] [address], [place], [id number] , [place]. tel:[phone] Office/Oupt E&M New Pt 45 Mins- CT & [place] [facility], [address] [place] [address] Dr Blandon 1000Rohan glover MD, [id number], [place] tel:[phone] [facility] [place] Varicose veins of bilateral lower extremities with other complicationsR estless legs syndromeCramp and spasmLocalized edema 4 Oliver PRINGLE RVT, RPVI Robert. [address] [place] [address], [place], [place], [id number] , [place]. tel:[phone] [facility]ish [facility], [address] [place] [address] Dr Blandon 1000Rohan glover MD, [id number], [place] tel:[phone] [facility] [place] Varicose veins of bilateral lower extremities with pain 4 Oliver PRINGLE RVT, RPVI Robert. [address] [place] [address], [facility] [place], [id number] , [place]. tel:[phone] Referring Provider: Gene Boyd MD, RVT, RPVI, [address] [facility] [address], [facility] [place], [address] . tel:[phone] Family History Family Member Type Diagnosis Age At Onset No Information Payers Payer name Insurance type Covered constitution party ID Authoriza tion(s) Medicare MEHDI SHRUTHI [id number] BCBS MEHDI [id number] Medical Assistance MEHDI [id number] Social History Type Description Quantity Date Captured [...]
--- NOTE | ~2024-09-05 | US_ITS ---
EXAMINATION: US KIDNEY BILATERAL HISTORY: N20.0 - Calculus of kidney TECHNIQUE: Real-time grayscale ultrasound imaging of the kidneys was performed and images were reviewed. COMPARISON: Correlation is made with an abdominal ultrasound dated 02/21/2024. FINDINGS: Right kidney: The right kidney measures 10.1 x 5.6 x 5.9 cm. Renal parenchymal echotexture and thickness are normal. There are no masses. Multiple nonobstructing calculi are noted including two 3 mm calculi in the interpolar region and a 4 mm calculus at the lower pole. There is no hydronephrosis. Left Kidney: The left kidney measures 10.9 x 6.3 x 5.0 cm. Renal parenchymal echotexture and thickness are normal. There are no masses. There is no hydronephrosis or renal calculi. US/US renal BI IMPRESSION: Right nephrolithiasis as described. Otherwise unremarkable renal ultrasound. Electronically signed by: Gene Holland MD 09/08/2024 07:05 AM EDT
--- OUTSIDE RECORDS SUMMARY | 2024-09-05 16:21 | XMS_ITS | Clinical Summary ---
Author Organization [facility] Address [address] [place] [address] Phone Care Team Providers Care Procurement Forester Name Role Phone Raji Amanda MD Primary Care Provider [phone] Allergies No known active allergies Medications allopurinoL [...] Encounters Date Type Department Care Team Description 09/03/2024 6:49 AM EDT - 09/03/2024 11:59 PM EDT Hospital Encounter [facility] CT Scan [address] [place] [address] Wheezing Discharge Disposition: Home or Self Care 08/14/2024 3:00 PM EDT Office Visit Pulmonol - [facility] [address] [facility] [facility] [address] [place] [address] Crow Flores MD Wheezing (Primary Dx); Postinflammatory pulmonary fibrosis (CMS/HCC V24, CMS/HCC V28); Obesity (BMI 30-39.9) 06/30/2024 8:05 AM EDT - 06/30/2024 11:59 PM EDT Hospital Encounter [facility] Pulmonary [address] [place] [address] Wheezing Discharge Disposition: Home or [...] your loved ones. For example, child and adolescent psychiatrist or elderly care for an [...] Care Team (Late st Contact Info) Description 09/16/2024 3:45 PM EDT Office Visit Pulmonolgy - [facility] [address] [facility] [address] [place] [id number] Crow Flores MD [address] [facility] [address] [place] [address] Health Maintenance Due Date Last Done Comments [...] 2023 06/20/2021, 12/02/2020, 03/11/2020, Additional history exists Influenza Vaccine (#1) 2024 , 03/19/2023, 11/03/2021, Additional history exists Falls Risk Assessment 03/31/2025 03/31/2024 Hypertension/CHF/CAD Annual BMP Blood Test 03/31/2025 03/31/2024, 03/31/2024, 03/30/2024 Social Influencers of Health Screening 03/31/2025 03/31/2024 DTaP,Tdap,and Td Vaccines (4 - Td or Tdap) 03/18/2033 03/18/2023, 11/03/2021, 06/29/2010 Pneumococcal Vaccine: 50+ Years Completed 03/10/2015, 12/22/2010 HIB Vaccines Aged Out No longer eligi [...] Diagnosis Comments CT CHEST WO CONTRAST Routine 09/03/2024 7:24 AM EDT Wheezing PULMONARY FUNCTION TESTING Routine 08/14/2024 3:13 PM EDT HC SPIROMETRY BRONCHODILATION RESPONSIVENESS PRE/POST BRONCHODILATOR ADMINISTRATION Routine 06/30/2024 9:15 AM EDT Wheezing BASIC METABOLIC PANEL Routine 03/31/2024 6:05 AM EST from Last 3 Months or Most Recently Relevant to Health Maintenance Results * CT Chest wo Contrast (09/03/2024 7:24 AM EDT) Anatomical Region Laterality Modality Body Computed Tomogra phy 09/03/2024 2:08 PM EDT Impressions 09/03/2024 2:12 PM EDT Osteophyte associated scarring in the medial right lower lobe. No evidence of interstitial fibrosis. -------- FINAL REPORT -------- Dictated By: Michael Espinoza Dictated Date: 09/03/2024 14:08 ET Assigned Physician: Michael Espinoza Reviewed and Electronically Signed By: Michael Espinoza Signed Date: 09/03/2024 14:12 ET Workstation ID: [id number] Transcribed By: Self Edit Transcribed Date: 09/03/2024 14:08 ET Narrative 09/03/2024 2:12 PM EDT PROCEDURE: CT of the chest without intravenous contrast. TECHNIQUE: CT of the chest without intravenous contrast administration. Coronal and sagittal reformats and MIP reconstructions were created. Prone images were also obtained. Dose length product: 975 mGy-cm. HISTORY: Cough, persistent Interstitial lung disease COMPARISON: 05/21/2024. FINDINGS: LUNGS/PLEURA: The central airways are clear and normal in caliber. Mild osteophyte associated scarring in the medial right lower lobe. Dependent groundglass opacities at the bases on supine images resolves on prone imaging, consistent with atelectasis. No pleural effusion or pneumothorax. MEDIASTINUM/JOESPH: No mediastinal mass or lymphadenopathy. No appreciable hilar lymphadenopathy on limited noncontrast evaluation. VASCULATURE: Normal caliber pulmonary arteries. Mild atherosclerotic calcifications of the aorta and great vessels. CARDIAC: Normal heart size. Moderate coronary artery calcification. CHEST WALL: No axillary or supraclavicular lymphadenopathy. LIMITED ABDOMEN: Atherosclerotic calcifications. Calcified gallstone. Slightly nodular liver contour. There it is a cyst in the left hepatic lobe and a few other small low- attenuation liver lesions which are too small for definitive characterization. BONES: Degenerative changes of the shoulders and spine with findings of DISH. Procedure Note Michael Espinoza MD - 09/03/2024 PROCEDURE: CT of the chest without intravenous contrast. TECHNIQUE: CT of the chest without intravenous contrast administration.Coronal and sagittal reformats and MIP reconstructions were created.Prone images were also obtained. Dose length product: 975 mGy-cm. HISTORY: Cough, persistent Interstitial lung disease COMPARISON: 05/21/2024. FINDINGS: LUNGS/PLEURA: The central airways are clear and normal in caliber. Mildosteophyte associated scarring in the medial right lower lobe. Dependentgroundglass opacities at the bases on supine images resolves on proneimaging, consistent with atelectasis. No pleural effusion orpneumothorax. MEDIASTINUM/JOESPH: No mediastinal mass or lymphadenopathy. No appreciablehilar lymphadenopathy on limited noncontrast evaluation. VASCULATURE: Normal caliber pulmonary arteries. Mild atheroscleroticcalcifications of the aorta and great vessels. CARDIAC: Normal heart size. Moderate coronary artery calcification. CHEST WALL: No axillary or supraclavicular lymphadenopathy. LIMITED ABDOMEN: Atherosclerotic calcifications. Calcified gallstone.Slightly nodular liver contour. There it is a cyst in the left hepaticlobe and a few other small low-attenuation liver lesions which are toosmall for definitive characterization. BONES: Degenerative changes of the shoulders and spine with findings ofDISH. IMPRESSION: Osteophyte associated scarring in the medial right lower lobe. Noevidence of interstitial fibrosis. -------- FINAL REPORT -------- Dictated By: Michael Espinoza Dictated Date: 09/03/2024 14:08 ET Assigned Physician: Michael Espinoza Reviewed and Electronically Signed By: Michael Espinoza Signed Date: 09/03/2024 14:12 ET Workstation ID: [id number] Transcribed By: Self Edit Transcribed Date: 09/03/2024 14:08 ET Crow Flores MD IMG CT PROCEDURES Final Resu lt * Pulmonary function testing: (08/14/2024 3:13 PM EDT) [facility] Provider PFT ORDERABLES Final Res ult * [...] Findings consistent with moderate restrictive lung disease. Result [facility] Crow Flores MD PFT ORDERABLES Final Result * (ABNORMAL) Basic metabolic panel (03/31/2024 6:05 AM EST) Sodium 139 133 - 145 mmol/L LAB CHEMISTRY METHOD 03/31/2024 7:52 AM [facility] Potassium 3.8 3.5 - 5.5 mmol/L LAB CHEMISTRY METHOD 03/31/2024 7:52 AM [facility] Chloride 108 96 - 110 mmol/L LAB CHEMISTRY METHOD 03/31/2024 7:52 AM [facility] CO2 27 21 - 32 mmol/L LAB CHEMISTRY METHOD 03/31/2024 7:52 AM [facility] Anion Gap 4 3 - 11 LAB CHEMISTRY METHOD 03/31/2024 7:52 AM [facility] Glucose 93 70 - 100 mg/dL LAB CHEMISTRY METHOD 03/31/2024 7:52 AM [facility] BUN 19 5 - 25 mg/dL LAB CHEMISTRY METHOD 03/31/2024 7:52 AM EST [facility] Creatinine 0.99 0.70 - 1.30 mg/dL LAB CHEMISTRY METHOD 03/31/2024 7:52 AM EST [facility] eGFR 77 >=60 mL/min/1. 73m2 LAB CHEMISTRY METHOD 03/31/2024 7:52 AM EST [facility] Comment:Calculation based on the Chronic Kidney Disease Epidemiology Collaboration (CKD-EPI) equation refit without adjustment for race. BUN/Creatinine Ratio 19.2 LAB CHEMISTRY METHOD 03/31/2024 7:52 AM [facility] Calcium 7.9(L) 8.5 - 10.5 mg/dL LAB CHEMISTRY METHOD 03/31/2024 7:52 AM [facility] Blood Venous blood specimen / Unknown Venipuncture / Unknown 03/31/2024 6:05 AM EST 03/31/2024 7:14 AM EST us Leland Esteban MD LAB BLOOD ORDERABLES Final Res ult [facility] [address] [place] [address], from Last 3 Months or Most Recently Relevant to Health Maintenance Additional Health Concerns Infection Onset Date Last Indicated Norovirus 03/31/2024 03/31/2024 Insurance MEDICARE [place]ICA[place] - [place] [facility] Advance Directives * Full Code [...] currently active code status orders. Care Teams Procurement Forester Relationship Specialty Start Date End Date Raji Amanda MD [address] [place] [address] [place] [id number] PCP - General Internal Medicine 03/30/24
--- OUTSIDE RECORDS SUMMARY | 2024-09-05 16:21 | XMS_ITS | Data Portability ---
Author Organization [facility] Address [address] [place] [address] Care Team Providers Care Director Of User Experience Name Role Phone PEDRITODONNA PRETTY Primary Care Provider [phone] Assessment Encounter Date Assessment Date Assessment LastModified [...] surveillance status post left total hip arthroplasty. Not available 08/21/2023 07:30:04 Plan of Treatment [...] 08/17/19 [facility], [address], [facility] [address], [place], [address], 4 08:58:16 Medication Orders None record ed. [...] a4ajBk vP9nXo QUaueC m3YtLR FvZlgJ JJ8mAn HZtai3 7o4201 AC0KuY nmAUqT eUC8mr 84%3D INTERFACE [facility] [address], [place], [address], 08/17/2023 14:30:49 08/17/19 24 08/17/2023 XR, hip, unila teral , 2 or 3 view http:/ [email or web address] ?Encry pted=s hAaTro YD8dLq bEUv6g %2BXZw aYqtaq 0bqfl% 2Fg9IQ a4ajBk vP9nXo QUaueC m3YtLR FvZlgJ JJ8mAn HZtai3 4h9786 AC0KuY nmAUqT eUC8mr 84%3D INTERFACE [facility] [address], [place], [address], 08/17/2023 14:30:51 10/27/19 24 10/18/2022 imagi ng/di agnos tic resul t No observ ation record ed. [email or web address] Not Available 09/28 10:43:11 Result Notes Documentation Provider Name and Address Organization Details Recorded Time Xr, Hip, Unilateral, 2 Or 3 View : [email or web address]? Encrypted=ywOaTcbOQ4fHcoR Uv6g%1FZUmwMjdpj8mwyd%2Fg 3RBb8xtRibT0iIaAAbvrDq7Fc NCZwCppCHY3iLbCMefh17d905 4VP7AlQbpEBiFxOS6xb56%3D Not Available [facility] 08/17/2023 14:3 0:50 Xr, Hip, Unilateral, 2 Or 3 View : [email or web address] Encrypted=quQuBhpAP1rDojP Uv6g%8EHTnxVpadu2dyym%2Fg 0ALg0ywQlbU0lWgHUmwkPo2Fn DTMbZlrOAU5vSdJXdos50a649 6GX5GjDtaHFtDvXR3nf14%3D Not Available [facility] 08/17/2023 14:3 0:51 Procedures Surgical History Date Name Laterality Status Provider Name and Address Organization Details Recorded Time 4 Hip Kenalog 1cc Injection, L/R completed Ritchie Miller MD [address] [place] [address] [address], [place], [address], [facility] 08/21/2023 07:30:14 Imaging [...] Updated DateTime 03/14/2024 182.88 cm 34.6 kg/m2 516245.05 g DONNIE MANNING [facility] 03/14/2024 08:06:08 Date Recorded Body height Provider Name an d Address Organization Details Last Updated DateTime 08/17/2023 180.34 cm OLGA MASTERSON [facility] 08/17/2023 14:22:04 Date Recorded Body height Body mass index (BMI) Body weight Provider Name and Address Organization Details Last Updated DateTime 10/19/2023 180.34 cm 35.4 kg/m2 551163.46 g Anna Lawrence [facility] 10/19/2023 09:24:31 Social History None recorded. Functional Status None recorded. Mental Status None recorded. Family History Nothing Reported. Medical History No medical history recorded. Past Encounters Encounter ID Performer Location Encounter Start Date Encounter Closed Date Diagnosis/Indication Diagnosis SNOMED-CT Code Diagnosis ICD10 Code Diagnosis Note [id number] MD Humberto Villegas [address] [place] [address] 08/17/2023 14:06:06 09/10/2023 08:58:16 History of total replacement of left hip joint [id number] 355745 Z96.642 Trochanter ic bursitis of left hip 9431487127 72265 M70.62 [id number] MD Humberto Camacho [address] [place] [address] 10/19/2023 09:10:03 11/13/2023 10:21:40 Trochanteric bursitis of left hip [id number] 04261 M70.62 [id number] Wong Vel[facility] [address] [address] [place] [address] 03/14/2024 07:41:37 03/28/2024 15:51:44 Trochanteric bursitis of left hip [id number] 54889 M70.62 Health Concerns Section Related Observation LastModified by Organization Detai ls LastModified Time None Recorded Concern Status LastModified by Organization Details LastModified Time None Recorded Advance Directives Directive None Recorded Payers Insurance Date Sequence Insurance Name Policy Number Policy Rust Covered Member ID Rust Member ID Guarantor Name 03/28/2024 2 [place] [id number] Gene Cordero [id number] Gene Cordero 03/14/2024 1 [place] [employer] Gene Cordero [id number] Gene Cordero Notes Date Note Type [...] injection. We discussed the experimental nature and gfy-mh-dgpxlk cost with PRP injection. Third option would [...] start the booking process. Wong Velázquez MD [address] [place] [address] [address], [place], [address], [facility] 10/19/2023 13:45:40 03/14/2024 text/html [...] injection. We discussed the experimental nature and ebf-bp-ysyowf cost with PRP injection. Third option would [...] start the booking process. Wong Velázquez MD [address] [place] [address] [address], [place], [address], [facility] 03/14/2024 18:40:13
--- OUTSIDE RECORDS SUMMARY | 2024-09-05 16:21 | XMS_ITS | Patient Health Record ---
Author Organization [facility] Address [address] [facility] [place] [address] Care Team Providers Care Farm Laborer Name Role Phone Raji Amanda MD Primary Care Provider Sha Caballero Unavailable [phone] Allergies No Known Allergies Reason For Referral No Information Medications Medication SIG (Take, Route, Fr equency, Duration) Notes Start Date End Date Status Allopurinol 100 MG 1 tablet Orally Once a day; Duration: 30 day(s) Active Entecavir 0.5 MG as directed Orally Active Omeprazole 20 MG as directed Orally Active Vitamin B6 100 MG 1 tablet Orally Once a day; Duration: 30 day(s) Active Omeprazole 20 MG 1 capsule 30 minutes before morning meal Orally Once a day; Duration: 30 day(s) Not-Raymond ing Entecavir 0.5 MG 1 tablet on an empty stomach Orally Once a day; Duration: 10 day(s) Not-Taking Allopurinol 100 MG 1 tablet Orally Once a day; Duration: 30 day(s) Not-Taking Ciclopirox 0.77 % 1 application to aff ected area Externally Twice a day to effected nails; Duration: 30 days Active Social History Tobacco Use: Social History [...] W/U Status Risk Notes Problem Tinea unguium (B35.1) Active confirmed Vital Signs Height 6ft in 10/15/2023 Weight 248 lbs 10/15/2023 BMI 33.63 kg/m2 10/15/2023 Encounters Encounter Location Date Provider Diagnosis [facility] [address] [address] 10/15/2023 Sha Daugherty Tinea unguium B35.1 ; Pain in right toe(s) M79.674 and Pain in left toe(s) M79.675 Assessments Encounter Date Diagnosis (ICD Code) Assessment Notes Treatment Notes Treatment Clinical Notes Section Notes 10/15/2023 Tinea unguium (ICD-10 - B35.1) 10/15/2023 Pain in right toe(s) (ICD-10 - M79.674) 10/15/2023 Pain in left toe(s) (ICD-10 - M79.675) Plan Of Treatment Next Appt Details Provider Name:Sha Daughrety , 10/06/2024 03:30:00 PM, [address] [place] [address], [place], [address], Insurance Providers Payer Name Payer Address Payer Phone Subscriber Number Group Number Insured Name Patient Relationship to Insured Coverage Start Date Coverage End Date Medicare National [employer]t [employer] [address] [place] [address] [id number] Gene Corrigan Self - patient is the insured [employer] [facility] [address] [place] [address] [phone] [id number] Gene Corrigan Self - patient is the insured Medical (General) History Medical History History ICD Code Gall bladder problems Hepatitis B Liver disease Measles Mumps Chicken pox Bone implants/screws Surgical History Surgery Date(Month/Year) left hip replacement 05/03/21 ankle surgery - Fracture ORIF, Right 04/27 024 vein surgery 05/2023 Hospitalization History Reason Date(Month/Year) [facility] - Kidney stones 05/2023 [facility], Broken ankle 04/2023, 05/2023
== END 2024-09-05 16:19 | disposition home or self-care (01) ==
LOC: HO.US 16:18
PROVIDERS: Visit Provider Urology
DX: N20.0 Calculus of kidney (principal)
CPT/HCPCS: 76775

== ENCOUNTER → 2024-09-05 16:20 | Outpatient (BNV) | payer MEDICARE, SELFPAY | PROVIDERS: Visit Provider Radiology Diagnostic Radiology | DX: N20.0 Calculus of kidney (principal) | CPT/HCPCS: 76775 ==

== ENCOUNTER 2024-09-19 15:50 | Outpatient (AMB) | payer MEDICARE, SELFPAY ==
--- OUTSIDE RECORDS SUMMARY | 2023-12-04 04:15 | XMS_ITS | Continuity of Care Document ---
Author Organization [facility] Address [address] MD [place] [address] Phone Care Team Providers Care Forensic Analyst Name Role Phone Oliver PRINGLE, RVT, JOSE [...] Mins- CT & [place] [facility] MD TREVINO, [address] [place] [address] Dr Blandon 1000Suite 1000Rohan MD, [id number], [place] tel:[phone] [facility] Venous insufficiency (chronic) (peripheral)Lo calized edema Oct-0 4 Oliver PRINGLE RVT, RPVI Robert. [address] [facility], [address], [place], [id number] , [place]. tel:[phone] Referring Provider: Raji Amanda MD, [address] [facility] SUITE [facility], [place], [address]. tel:[phone] Vish [facility], [address] [place] [address] Dr Blandon [facility] 1000[place], [id number], [place] tel:[phone] [facility] Chronic venous hypertension (idiopathic) with other complications of bilateral lower extremity Nov-0 4 Oliver PRINGLE RVT, RPVI Robert. [address] [place] [address], Suite [facility], [place], [id number] , [place]. tel:[phone] Referring Provider: Raji Amanda MD, [address] [facility] SUITE [facility], [place], [address]. tel:[phone] Vish [facility], [address] [place] [address] Dr Blandon 1000Suite 1000Rohan [place], [id number], [place] tel:[phone] [facility] Encounter for follow-up examination after completed treatment for conditions other than malignant neChronic venous hypertension (idiopathic) with other complications of left lower extremity 4 Oliver PRINGLE RVT, JOSE DAVID [place]. [facility]0 [facility], [address], [place], [id number] , [place]. tel:[phone] Referring Provider: Gene Boyd MD, RVT, JOSE DAVID, [address] [place] [address] Suite [facility], [place], [address] . tel:[phone] [facility], [address] [place] [address] Suite [address]Suite 1000Rohan MD, [id number], [place] tel:[phone] [facility] [place] Varicose veins of left lower extremity with other complications 4 Oliver PRINGLE RVT, RPVI Robert. [address] [place] [address], [address], [place], [id number] , [place]. [phone] Vish [facility], [address] [place] [address] [address]Suite 1000Rohan MD, [id number], [place] tel:[phone] [facility] [place] Varicose veins of left lower extremity with other complications 4 Oliver PRINGLE RVT, RPVI Robert. [address] [place] [address], [place] [address], [place], [id number] , [place]. [phone] Referring Provider: Gene Boyd MD, RVT, RPVI, [address] [place] [address] [address], [place], [address] . tel:[phone] Vish [facility], [address] [place] [address] [facility] 1000Suite 1000Rohan MD, [id number], [place] tel:[phone] [facility] [place] Encounter for follow-up examination after completed treatment for conditions other than malignant nePain in right leg 4 Oliver PRINGLE RVT, RPVI Robert. [address] [place] [address], [address], [place], [id number] , [place]. [phone] Referring Provider: Gene Boyd MD, RVT, JOSE DAVID, [address] [place] [address] [address], [place], [address] . tel:[phone] [facility]ish [facility], [address] [place] [address] Dr Blandon 1000Suite 1000Rohan MD, [id number], [place] tel:[phone] [facility] [place] No Information 4 Oliver PRINGLE RVT, RPVI Robert. [address] [place] [address], [facility] [place], [id number] , [place]. [phone] [facility], [address] [place] [address] Dr Blandon 999Rohan glover MD, [id number], [place] tel:[phone] [facility] [place] Varicose veins of right lower extremity with other complications 4 Oliver PRINGLE RVT, RPVI Robert. [address] [place] [address], [place], [id number] , [place]. tel:[phone] Offic/outpt E&m Estab 5 Min Trial- Telemedicine CT & [place] [facility], [address] [place] [address] Dr Blandon 1000Rohan glover MD, [id number], [place] tel:[phone] [facility] [place] Chronic venous hypertension (idiopathic) with other complications of bilateral lower extremityCramp and spasmRestless legs syndrome 4 Oliver PRINGLE RVT, RPVI Robert. [address] [place] [address], [place], [id number] , [place]. tel:[phone] Office/Oupt E&M New Pt 45 Mins- CT & [place] [facility], [address] [place] [address] Dr Blandon 1000Rohan glover MD, [id number], [place] tel:[phone] [facility] [place] Varicose veins of bilateral lower extremities with other complicationsR estless legs syndromeCramp and spasmLocalized edema 4 Oliver PRINGLE RVT, RPVI Robert. [address] [place] [address], [place], [id number] , [place]. [phone] [facility], [address] [place] [address] Dr Blandon 1000Rohan glover MD, [id number], [place] tel:[phone] [facility] [place] Varicose veins of bilateral lower extremities with pain 4 Oliver PRINGLE RVT, RPVI Robert. [address] [place] [address], [facility] [place], [id number] , [place]. tel:[phone] Referring Provider: Geen Boyd MD, RVT, RPVI, [address] [facility] [address], [facility] [place], [address] . tel:[phone] Family History Family Member Type Diagnosis Age At Onset No Information Payers Payer name Insurance type Covered democrat ID Authoriza tion(s) Medicare MEHDI SHRUTHI [id number] BCBS MEHDI [id number] Medical Assistance MEHDI SHUKLA [id number] Social History Type Description Quantity Date Captured [...] with other complications of bilateral lower extremity Diet education Related to Body mass index (BMI) 33.0-33.9, adult Giving Encouragement to exercise Related to Body mass index (BMI) 33.0-33.9, adult Lifestyle education Related to B pal mass index (BMI) 33.0-33.9, adult Patient education booklet given Related to Varicose veins of bilateral lower extremities with other complications Pre and post instruc tions reviewed and provided Related to Varicose veins of bilateral lower extremities with other complications Assessments Type Assessment Date assessment Venous insufficiency (chronic) ( peripheral) assessment Localized edema Patient Care Teams Name Effective Dates (start - stop) Status Members No Information
--- OUTSIDE RECORDS SUMMARY | 2024-09-19 15:53 | XMS_ITS | Clinical Summary ---
Author Organization [facility] Address [address] [place] [address] Phone Care Team Providers Care Filter Tank Tender Name Role Phone Raji Amanda MD Primary Care Provider [phone] Allergies No known active allergies Medications allopurinoL (ZYLOPRIM) 100 mg tablet Take 1 tablet (100 mg total) by mouth every other day. 2 Active clonazePAM (KlonoPIN) 0.5 mg tablet Take 1 tablet (0.5 mg total) by mouth 2 (two) times a day if needed for anxiety. Active entecavir (BARACLUDE) 0.5 mg tablet Take 1 tablet (0.5 mg total) by mouth 1 (one) time each day. 2 Active omeprazole (PriLOSEC) [address] capsule Take 1 capsule (20 mg total) by mouth 1 (one) time each day. Active dextromethorph an polistirex (DELSYM) 30 mg/5 mL suspension Take 10 mL (60 mg total) by mouth 2 (two) times a day. 5 Active fluticasone propionate (FLONASE) 50 mcg/actuation nasal spray Administer 1 spray into each nostril 2 (two) times a day. 5 Active hydroCHLOROthi azide 12.5 mg tablet Take 1 tablet (12.5 mg total) by mouth 1 (one) time each day. 5 Active loratadine (CLARITIN) 10 mg tablet Take 1 tablet (10 mg total) by mouth 1 (one) time each day. for allergies 5 Active neomycin-polym yxin-dexametha methasone (POLYDEX) 3.5 mg/g-10,000 unit/g-0.1 % ointment every 4 (four) hours. 5 Active sildenafiL (VIAGRA) 100 mg tablet Take 1 tablet (100 mg total) by mouth if needed. 5 Active tadalafiL (CIALIS) 5 mg tablet Take 1 tablet (5 mg total) by mouth 1 (one) time each day. 5 Active cyanocobalamin , vitamin B-12, 1,000 mcg/mL drops Take by mouth. Ac tive albuterol HFA (PROAIR HFA ; PROVENTIL HFA ; VENTOLIN HFA) 90 mcg/actuation inhaler Inhale 2 puffs by mouth every 4 (four) hours if needed for wheezing or shortness of breath. 5 09/17/19 25 Discontinu ed(Suhail szymanski) Hospital, Clinic, or Other Facility Administered Medication Ordered Dose Route Frequency Start Date End Date Status methacholine challenge (PROVOCHOLINE) 0 mg/mL inhalation solution 2 mLIndications:Wheezing,M ild asthma, unspecified whether complicated, unspecified whether persistent 2 mL inhl Once 09/16/2024 Active methacholine challenge (PROVOCHOLINE) 0.0625 mg/mL inhalation solution 2 mLIndications:Wheezing 2 mL inhl Once 09/16/2024 Ac tive methacholine challenge (PROVOCHOLINE) 0.25 mg/mL inhalation solution 2 mLIndications:Wheezing 2 mL inhl Once 09/16/2024 Ac tive methacholine challenge (PROVOCHOLINE) 1 mg/mL inhalation solution 2 mLIndications:Wheezing 2 mL inhl Once 09/16/2024 Ac tive methacholine challenge (PROVOCHOLINE) 4 mg/mL inhalation solution 2 mLIndications:Wheezing 2 mL inhl Once 09/16/2024 Ac tive methacholine challenge (PROVOCHOLINE) 16 mg/mL inhalation solution 2 mLIndications:Wheezing 2 mL inhl Once 09/16/2024 Ac tive albuterol 2.5 mg /3 mL (0.083 %) nebulizer solution 2.5 mgIndications:Wheezing 2.5 mg nebu Once as needed 09/16/2024 Active ipratropium (ATROVENT) 0.02 % nebulizer solution 0.5 mgIndications:Wheezing 0.5 mg nebu Once as needed 09/16/2024 Active ipratropium-albuteroL (DUONEB) 0.5-2.5 mg/3 mL nebulizer solution 3 mLIndications:Wheezing 3 mL nebu Every 6 hours 09/16/2024 Active Active Problems Problem Noted Date Diagnosed Date Benign hypertension 09/12/2024 Benign prostatic hyperplasia 09/12/2024 Calculus of kidney 09/12/2024 Chronic viral hepatitis B wi thout delta-agent ([facility] V24, [facility] V28) 09/12/2024 Class 1 obesity 09/12/2024 Gastroesophageal reflux disease with esophagitis 09/12/2024 Hepatic cirrhosis ([facility] V24, [facility] V28) Hyperuricemia 09/12/2024 Low platelet count ([facility] V24) 09/12/2024 Obstructive sleep apnea syndrome 09/12/2024 Osteoarthritis 09/12/2024 Overview (09/12/2024): Left HIp ED (erectile dysfunction) 09/12/2024 Resolved Problems Problem Noted Date Diagnosed Date Resolved Date Norovirus 03/31/2024 03/31/2024 Tachycardia 03/30/2024 03/31/2024 Encounters Date Type Department Care Team Description 09/16/2024 3:45 PM EDT [facility] [address] [phone] Crow Flores MD Wheezing (Primary Dx); Mild asthma, unspecified whether complicated, unspecified whether persistent 09/03/2024 6:49 AM EDT - 09/03/2024 11:59 PM EDT Hospital Encounter [facility] CT Scan [address] [place] [phone] Wheezing Discharge Disposition: Home or Self Care 08/14/2024 3:00 PM EDT [facility] [address] [phone] Crow Flores MD Wheezing (Primary Dx); Postinflammatory pulmonary fibrosis (CMS/HCC V24, CMS/HCC V28); Obesity (BMI 30-39.9) 06/30/2024 8:05 AM EDT - 06/30/2024 11:59 PM EDT Hospital Encounter [facility] Pulmonary [address] [place] [address] Wheezing Discharge Disposition: Home or [...] for your loved ones. For example, child specialist or elderly care for an older adult? [...] Sign Reading Time Taken Comments Blood Pressure 156/77 09/16/2024 3:58 PM EDT Pulse 80 09/16/2024 3:58 PM EDT Temperature 36.4 C (97.6 F) 09/16/2024 3:58 PM EDT Respiratory Rate 20 09/16/2024 3:58 PM EDT Oxygen Saturation 98% 09/16/2024 3:58 PM EDT Inhaled Oxygen Concentration - - Weight 117 kg (258 lb) 09/16/2024 3:58 PM EDT Height 182.9 cm (6') 09/16/2024 3:58 PM EDT Body Mass Index 34.99 09/16/2024 3:58 PM EDT Plan of Treatment Upcoming Encounters Date Type Department Care Team (Late st Contact Info) Description 10/16/2024 3:45 PM EDT Office Visit Pulmonolgy - [place] 175 [facility] [address] [place] [phone] Crow Flores MD [address] [address] Health Maintenance Due Date Last Done Comments Zoster Vaccines (2 of 3) 02/27/2011 01/02/2011 RSV Immunization Adult Patients (1 - 1-dose 75+ series) 12/26/2019 Cholesterol Screening (Lipid Panel) 09/18/2023 Hepatitis C Screening 09/18/2023 Medicare Annual Wellness Visit 09/18/2023 COVID-19 Vaccine ( - season) 2023 06/20/2021, 12/02/2020, 03/11/2020, Additional history exists Depression Screening 02/27/2024 Influenza Vaccine (#1) 2024 , 03/19/2023, 11/03/2021, [...] on patient's age to complete this topic Hepatitis A Vaccines Aged Out No long er eligible based on patient's age to complete this topic Hepatitis B Vaccines Aged Out No long er eligible based on patient's age to complete [...] Signed Date: 09/03/2024 14:12 ET Workstation ID: [id number] Transcribed By: Self Edit Transcribed Date: 09/03/2024 [...] Signed Date: 09/03/2024 14:12 ET Workstation ID: [id number] Transcribed By: Self Edit Transcribed Date: 09/03/2024 14:08 ET us Crow Flores MD IMG CT PROCEDURES Final Resu lt * Pulmonary function testing: (08/14/2024 3:13 PM EDT) Historical Provider PFT ORDERABLES Final Res ult [...] mmol/L LAB CHEMISTRY METHOD 03/31/2024 7:52 AM [facility] Potassium 3.8 3.5 - 5.5 mmol/L LAB CHEMISTRY METHOD 03/31/2024 7:52 AM [facility] Chloride 108 96 - 110 mmol/L LAB CHEMISTRY METHOD 03/31/2024 7:52 AM [facility] CO2 27 21 - 32 mmol/L LAB CHEMISTRY METHOD 03/31/2024 7:52 AM [facility] Anion Gap 4 3 - 11 LAB CHEMISTRY METHOD 03/31/2024 7:52 AM [facility] Glucose 93 70 - 100 mg/dL LAB CHEMISTRY METHOD 03/31/2024 7:52 AM [facility] BUN 19 5 - 25 mg/dL LAB CHEMISTRY METHOD 03/31/2024 7:52 AM [facility] Creatinine 0.99 0.70 - 1.30 mg/dL LAB CHEMISTRY METHOD 03/31/2024 7:52 AM EST [facility] eGFR 77 >=60 mL/min/1. 73m2 LAB CHEMISTRY METHOD 03/31/2024 7:52 AM EST [facility] Comment:Calculation based on the Chronic Kidney Disease Epidemiology Collaboration (CKD-EPI) equation refit without adjustment for race. BUN/Creatinine Ratio 19.2 LAB CHEMISTRY METHOD 03/31/2024 7:52 AM EST [facility] Calcium 7.9(L) 8.5 - 10.5 mg/dL LAB CHEMISTRY METHOD 03/31/2024 7:52 AM [facility] Blood Venous blood specimen / Unknown Venipuncture / Unknown 03/31/2024 6:05 AM EST 03/31/2024 7:14 AM EST Leland Esteban MD LAB BLOOD ORDERABLES Final Res ult [facility] [address] [place] [address], from Last 3 Months or Most Recently Relevant to Health Maintenance Additional Health Concerns Infection Onset Date Last Indicated Norovirus 03/31/2024 03/31/2024 Insurance MEDICARE [facility] [place]ICA[place] Advance Directives * Full Code - Default [...] currently active code status orders. Care Teams Filter Tank Tender Relationship Specialty Start Date End Date Raji Amanda MD [address] [place] [address] [place] [id number] PCP - General Internal Medicine 03/30/24
--- OUTSIDE RECORDS SUMMARY | 2024-09-19 15:53 | XMS_ITS | Data Portability ---
Author Organization [facility] Address [address] [place] [address] Care Team Providers Care Commercial Director Name Role Phone PEDRITODONNA PRETTY Primary Care Provider Assessment Encounter Date [...] surveillance status post left total hip arthroplasty. [email or web address] Not available 08/21/2023 07:30:04 Plan of Treatment [...] 08/17/19 [facility], [address], [facility] [address], [place], [address], 4 08:58:16 Medication Orders None record ed. [...] a4ajBk vP9nXo QUaueC m3YtLR FvZlgJ JJ8mAn HZtai3 6w3420 AC0KuY nmAUqT eUC8mr 84%3D INTERFACE [facility] [address], [place], [address], 08/17/2023 14:30:49 08/17/19 24 08/17/2023 XR, hip, unila teral , 2 or 3 view http:/ [email or web address] ?Encry pted=s hAaTro YD8dLq bEUv6g %2BXZw aYqtaq 0bqfl% 2Fg9IQ a4ajBk vP9nXo QUaueC m3YtLR FvZlgJ JJ8mAn HZtai3 9j0995 AC0KuY nmAUqT eUC8mr 84%3D INTERFACE [facility] [address], [place], [address], 08/17/2023 14:30:51 10/27/19 24 10/18/2022 imagi ng/di agnos tic resul t No observ ation record ed. [email or web address] Not Available 09/28 10:43:11 Result Notes Documentation Provider Name and Address Organization Details Recorded Time Xr, Hip, Unilateral, 2 Or 3 View : [email or web address]? Encrypted=ijMzHwaFC9lQgtU Uv6g%4RBXgaPankw9mmwz%2Fg 3QTg9phQrsL6cUiGDsdnAo8Sb PWGhDizKCB1hDjQDavn25l019 2MZ8WmXkzZTtBxRY2rd41%3D Not Available [facility] 08/17/2023 14:3 0:50 Xr, Hip, Unilateral, 2 Or 3 View : [email or web address] Encrypted=npTfPviDA9pCydQ Uv6g%6OWIvwNbhhd0jelb%2Fg 1OVq8jiBkgY3kGcPRsluDu4Jm GBScRsrGFL3nFdGDubk78o773 8XZ3EzDggAWwPoGS6rq72%3D Not Available [facility] 08/17/2023 14:3 0:51 Procedures Surgical History Date Name Laterality Status Provider Name and Address Organization Details Recorded Time 4 Hip Kenalog 1cc Injection, L/R completed Ritchie Miller MD [address] [place] [address] [address], [place], [address], [facility] 08/21/2023 07:30:14 Imaging Results [...] Updated DateTime 03/14/2024 182.88 cm 34.6 kg/m2 479203.05 g DONNIE MANNING [facility] 03/14/2024 08:06:08 Date Recorded Body height Provider Name an d Address Organization Details Last Updated DateTime 08/17/2023 180.34 cm OLGA MASTERSON [facility] 08/17/2023 14:22:04 Date Recorded Body height Body mass index (BMI) Body weight Provider Name and Address Organization Details Last Updated DateTime 10/19/2023 180.34 cm 35.4 kg/m2 094384.46 g Anna Lawrence [facility] 10/19/2023 09:24:31 Social History None recorded. Functional Status None recorded. Mental Status None recorded. Family History Nothing Reported. Medical History No medical history recorded. Past Encounters Encounter ID Performer Location Encounter Start Date Encounter Closed Date Diagnosis/Indication Diagnosis SNOMED-CT Code Diagnosis ICD10 Code Diagnosis Note [id number] MD Humberto Villegas [address] [place] [address] 08/17/2023 14:06:06 09/10/2023 08:58:16 History of total replacement of left hip joint [id number] 904617 Z96.642 Trochanter ic bursitis of left hip 8474691368 72318 M70.62 [id number] MD Humberto Camacho [address] floor [address] [place] [place] [address] 10/19/2023 09:10:03 11/13/2023 10:21:40 Trochanteric bursitis of left hip 3034922655 68783 M70.62 [id number] Wong Vel[facility]quez [facility] [address] [place] [address] 03/14/2024 07:41:37 03/28/2024 15:51:44 Trochanteric bursitis of left hip [id number] 82984 M70.62 Health Concerns Section Related Observation LastModified by Organization Detai ls LastModified Time None Recorded Concern Status LastModified by Organization Details LastModified Time None Recorded Advance Directives Directive None Recorded Payers Insurance Date Sequence Insurance Name Policy Number Policy Rust Covered Member ID Rust Member ID Guarantor Name 03/28/2024 2 [place] [id number] Gene Cordero [id number] Gene Cordero 03/14/2024 1 [place] [employer] Gene Cordero [id number] Gene Cordero Notes Date Note Type [...] injection. We discussed the experimental nature and ixt-td-uvvhxa cost with PRP injection. Third option would [...] was provided contact information for our certified surgical first assistant and can call if he would like to start the booking process. Wong Velázquez MD [address] [place] [address] [address], [place], [address], [facility] 10/19/2023 13:45:40 03/14/2024 text/html [...] injection. We discussed the experimental nature and lkv-yr-hkiyzl cost with PRP injection. Third option would [...] start the booking process. Wong Velázquez MD [address] [place] [address] [address], [place], [address], [facility] 03/14/2024 18:40:13
--- OUTSIDE RECORDS SUMMARY | 2024-09-19 15:53 | XMS_ITS | Clinical Summary ---
Author Organization [facility] Address [address] [place] [address] Phone Care Team Providers Care Product/Device Technologist Name Role Phone Pcp, Unknown Primary Care Provider Unavailabl e Allergies No known active allergies Medications omeprazole (PRILOSEC) 20 MG capsule Take 20 mg by mouth every morning. 3 Active entecavir (BARACLUDE) 0.5 MG tablet 3 Active allopurinol (ZYLOPRIM) 100 MG tablet Take 100 mg by mouth every other day. 3 Active fluticasone propionate (FLONASE) 50 mcg/actuation nasal spray USE 1 SPRAY IN EACH NOSTRIL TWICE DAILY FOR CONGESTION 5 Active loratadine (CLARITIN) 10 mg tablet Take 10 mg by mouth daily. 5 Active hydroCHLOROthia zide 12.5 MG tablet Take 1 tablet by mouth every morning. 5 Active cyanocobalamin, vitamin B-12, (VITAMIN B-12 ORAL) Take by mouth. Activ e Active Problems No known active problems Encounters Date Type Department Care Team Description 09/03/2024 3:00 PM EDT Occupational [facility] at [address] [address] Afsaneh Taylor PA-C Encounter for examination required by Department of Transportation (DOT) (Primary Dx) 07/21/2024 9:45 AM EDT [facility] Care at [address] [address] Afsaneh Taylor PA-C Encounter for drug screening (Primary Dx) from Last 3 Months Social History Tobacco Use Types Packs/Day Years Used Date Smoking Tobacco: Never Smokeless Tobacco: Never Tobacco Cessation:Counseling Given: Not Answered Alcohol Use Standard Drinks/Week Comments Yes 0 (1 standard drink = 0.6 oz pur e alcohol) Education Answer Date Recorded Are you interested in more education? Not on denzel e 08/15/2022 Are you concerned about learning? Not on file 08/15/2022 No 08/15/2022 No 08/15/2022 Digital Access Answer Date Recorded No 08/15/2022 No 08/15/2022 Reliable internet access at home? Not on file 08/15/2022 Device with a working camera? Not on file Sex and Gender Information Value Date Recorded Sex Assigned at Not on file Legal Sex Male 8:39 AM EST Gender Identity Not on file Sexual Orientation Not on file Last Filed Vital Signs Vital Sign Reading Time Taken Comments Blood Pressure 160/78 09/03/2024 3:09 PM EDT Pulse 70 09/03/2024 3:09 PM EDT Temperature - - Respiratory Rate 18 09/19/2022 11:28 AM EDT Oxygen Saturation 100% 09/03/2024 3:09 PM EDT Inhaled Oxygen Concentration - - Weight 117.9 kg (260 lb) 09/03/2024 3:09 PM EDT Height 182.9 cm (6') 09/03/2024 3:09 PM EDT Body Mass Index 35.26 09/03/2024 3:09 PM EDT Plan of Treatment Health Maintenance Due Date Last Done Comments CREATININE LEVEL 1944 LIPID PANEL 1944 POTASSIUM LEVEL 1944 DEPRESSION SCREENING 1956 HEPATITIS C SCREENING 1962 ZOSTER VACCINES (2 of 3) 02/27/2011 01/02/2011 RSV VACCINE (1 - 1-dose 75+ series) 12/26/2019 COVID-19 VACCINE ( season) 2023 06/20/2021, 12/02/2020, 03/11/2020, Additional history exists Adult Td,Tdap Booster 03/18/2033 03/18/2023 , 11/03/2021, 06/29/2010 PNEUMOCOCCAL VACCINES (50+ years) Completed 03/10/2015, 12/22/2010 SMOKING STATUS SCREENING (Once After 26 Yrs) Completed 09/04/2024 HEPATITIS A VACCINES Aged Out No long er eligible based on patient's age to complete this topic HIB VACCINES Aged Out No longer eligi ble based on patient's age to complete this topic MENINGOCOCCAL VACCINES (ACWY) Aged Out No longer eligible based on patient's age to complete this topic MENINGOCOCCAL VACCINES (B) Aged Out N o longer eligible based on patient's age to complete this topic Medical Devices Not on file [place] [address] [place] [address] MEDEX SUPPLEMENT MEDICARE PART A & B [facility] [employer] MEDEX SUPPLEMENT MEDICARE PART A & B [facility] [employer] MEDEX SUPPLEMENT MEDICARE PART A & B [facility] MED[facility]PPLEMENT MEDICARE PART A & [facility] [address] [place] [phone] [facility] MEDEX SUPPLEMENT MEDICARE PART A & [facility] MEDEX SUPPLEMENT MEDICARE PART A & B [facility] Care Teams Product/Device Technologist Relationship Specialty Start Date End Date Pcp, Unknown PCP - General 04/04/22 Additional Source Comments The information contained in this document represents components of the legal health record. It is not the complete legal health record.[facility]
--- NOTE | 2024-09-19 16:05 | MHC.OFFVIS ---
Intake Visit Reasons: 6m/US Intake Note: Patient is present for 6m/US follow up 09/05 Renal US Urology Medication:ALLOPURINOL,VITAMIN B6 Antibiotic Allergy:NONE Blood Thinner:NONE PVR:0ml Guest Room Inspector Required: No Allergies No Known Allergies Allergy (Verified 11/05/24 14:53) HPI Comments Details: 09/19/24--Gene is here for FU History of Present Illness - The patient is a 78-year-old male presenting for follow-up of nephrolithiasis and management of erectile dysfunction. - Nephrolithiasis: The patient has a history of kidney stones, with a recent ultrasound showing small calculi in the right kidney and a normal left kidney. - The patient feels well and the stones are considered small enough to pass naturally. - Erectile dysfunction: Current medications are less effective, prompting consideration of a revised treatment plan. Results - Renal ultrasound (09/05/24): Right kidney with small 2-3 mm calculi and a 4 mm calculus in the lower pole; left kidney normal. Plan - Monitor nephrolithiasis with annual ultrasound unless symptoms develop. - Continue hydrochlorothiazide for nephrolithiasis management. - Adjust erectile dysfunction treatment: Continue Cialis 5 mg daily and introduce Cialis 20 mg twice weekly, replacing Viagra as needed. - Prescriptions for Cialis and Viagra to be sent to the pharmacy. 04/21/24--FU Discussed 24 hour urine results collected:11/05/24 Total volume .99 L, Calcium 225 mg; Oxalate 30 mg, Citrate 1674 mg, Sodium 175. Stone analysis: 04/2023--Calcium Oxalate Dihydrate 15%, Calcium Oxalate Monohydrate (Whewellite) 70%, Carbonate Apatite 15%Instructed on importance of fluid intake, low sodium diet. Reviewed CT imaging from November 22, 2023, bilateral small less than 4 mm renal calculi right greater than left. Patient is on allopurinol. Will refer to Nephrology to re-evaluate medication therapy for hypercalciuria and kidney stone production. Follow-up with me in 6 months renal ultrasound at that time. Continue tadalafil for ED. 11/07/2023--reviewed renal ultrasound August 02, 2023 left hydronephrosis bilateral kidney stones. Will re-evaluate with CT KUB, 24 hour urine pending. 07/09/2023 Gene is followed for nephrolithiasis. He is status post ESWL and stent removal. He states he has been doing well. I have discussed metabolic workup including 24 hour urine collection. The patient is also concerned regarding erections. Has taken Viagra in the past with some improvement but lately is less satisfied with the results of the medication. I have discussed daily Cialis 5 mg daily we will continue the Viagra 100 mg on demand. 3-4 months telehealth follow-up. 30 minutes spent in review of records pertaining to this visit and including [id number] discussion with the patient and documentation of this visit. 05/14/2023--Gene presents for telehealth visit, video attempted to discuss KUB results. The patient had KUB done on 05/08/2023. I have reviewed the results with the patient --the stent is in good position. The ureteral stone is in the mid to proximal ureter. I discussed possible left ESWL if the stone was noted to be migrated up into the kidney. Today discussion involved review of imaging and plan to schedule ureteroscopy with laser lithotripsy stent exchange on the left. Also discussed is that he has bilateral kidney stones which will need to be addressed regarding treatment plan in the future. 05/04/23--Gene is a 77-year-old male who has been [place] [facility] [place] in the past he has been treated by Dr. Soliz for kidney stones. He is on vitamin B6 100 mg daily. He presented to the ED on 04/29/2023 with left flank pain. CT imaging noted bilateral kidney stones left greater than right with a left sided 6 mm proximal obstructing ureteral stone. He is status post left ureteral stent placed on 04/30/23. I have discussed with him further treatment options to include shockwave lithotripsy versus ureteroscopy laser lithotripsy. I have reviewed the CT scan films and the fluoroscopy surgical films with the patient. Discussed plan to check a KUB x-ray and will schedule a telehealth follow-up to review KUB x-ray results and clarify surgical treatment plan. [facility] Medical History Preop exam for internal medicine Cirrhosis GERD (gastroesophageal reflux disease) Kidney stone Hepatitis B COVID-19 vaccine series completed Sleep apnea BPH (benign prostatic hyperplasia) Obesity Arthritis of left hip Anxiety Hip pain Surgical History History of total left hip arthroplasty History of lithotripsy H/O colonoscopy History of back surgery History of appendectomy History of tonsillectomy Family History Father No problems noted. Mother No problems noted. Daughter No problems noted. Social History Housing: House Are you a primary care attendant to a significant other at home: No Do you presently have visiting nurse or other home services: No Alcohol intake: never Patient Tobacco Use Status: Never used Tobacco Tobacco use type: Cigarette e-Cigarette/Vaping Use: Never Used Second Hand Smoke Exposure: No service: No 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al status: retired 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 Cognitive needs: No Hearing needs: No Vision needs: Yes Review of Systems Const All systems reviewed & are unremarkable except as noted in HPI and below Reports no additional complaints Eyes Reports no additional complaints ENT Reports no additional complaints Card Reports no additional complaints Resp Reports no additional complaints GI Reports no additional complaints Reports as per HPI Musc Reports no additional complaints Skin/Breast Reports system reviewed and no additional complaints, except as documented Neuro Reports no additional complaints Psych Reports no additional complaints Endo Reports no additional complaints Jez/Lymph Reports no additional complaints Aller/Immun Reports no additional complaints Results Reviewed Results Reviewed: Date of Service: 09/05/24 EXAMINATION: US KIDNEY BILATERAL HISTORY: N20.0 - Calculus of kidney TECHNIQUE: Real-time grayscale ultrasound imaging of the kidneys was performed and images were reviewed. COMPARISON: Correlation is made with an abdominal ultrasound dated 02/21/2024. FINDINGS: Right kidney: The right kidney measures 10.1 x 5.6 x 5.9 cm. Renal parenchymal echotexture and thickness are normal. There are no masses. Multiple nonobstructing calculi are noted including two 3 mm calculi in the interpolar region and a 4 mm calculus at the lower pole. There is no hydronephrosis. Left Kidney: The left kidney measures 10.9 x 6.3 x 5.0 cm. Renal parenchymal echotexture and thickness are normal. There are no masses. There is no hydronephrosis or renal calculi. IMPRESSION: Right nephrolithiasis as described. Otherwise unremarkable renal ultrasound. Date of Service: 11/22/23 CT ABDOMEN AND PELVIS WITHOUT CONTRAST CLINICAL INFORMATION: Calculus of the kidney COMPARISON: CT dated April 30, 2023 TECHNIQUE: Multidetector volumetric imaging was performed from the superior aspect of the liver through the pubic symphysis. Sagittal and coronal reformatted images were obtained on the technologist's workstation. This CT examination was performed using dose optimization techniques as appropriate, variously including the following: *Automated exposure control *Adjustment of mA and/or kV according to patient size (this includes techniques or standardized protocols for targeted exams where dose is matched to indication/reason for exam; i.e. extremities or head) *Use of iterative reconstruction technique DLP: 822 mGy-cm FINDINGS: Limited evaluation of the intra-abdominal organs and vascular structures due to lack of IV contrast. LIVER, GALLBLADDER, AND BILIARY TREE: Liver measures 15 cm. Nodular surface. Prominent caudate lobe. Less than 2 cm round hypodensities in the left hepatic and right hepatic lobes. There is a 1.6 cm calcification within the lumen of the gallbladder. No pericholecystic fluid collection. No gallbladder wall thickening. No intrahepatic or extrahepatic biliary ductal dilatation. PANCREAS: No peripancreatic fluid collections. No main pancreatic ductal dilatation. SPLEEN: 12 cm. ADRENAL GLANDS: No nodular lesions. KIDNEYS AND URETERS: Multiple calculi measuring less than 4 mm throughout the pelvicalyceal system, bilaterally more conspicuous on the right kidney and focal in the lower pole of the left kidney. There is no calcifications within the ureters or the urinary bladder. BLADDER: Fluid-filled and nearly collapsed. GASTROINTESTINAL TRACT: Numerous diverticula in the sigmoid colon and to a lesser extent descending colon. No intestinal obstruction pattern. No ascites. No pneumoperitoneum. No pneumatosis intestinalis. I do not see the appendix. ABDOMINAL WALL: Small fat-containing umbilical hernia. Small fat-containing inguinal hernias. LYMPH NODES: No gross lymphadenopathy. VASCULAR: Mixed plaques throughout the abdominal aorta wall, iliac arteries, the origin of the mesenteric arteries and main renal arteries as well as the splenic artery.. OSSEOUS STRUCTURES: [Castellvi type I sacralization of multilevel thoracolumbar spondylosis. Large Schmorl node in the inferior endplate L2. Metallic prosthesis, left hip resulting in beam hardening artifact.. Calcified plaques in the coronary arteries. Calcified plaques in the thoracic aorta. CT/CT kidney stone IMPRESSION: Bilateral nonobstructing nephrolithiasis. Resolved/past calculus in the left ureter. No hydronephrosis. Other findings as noted above. FRANDY: 05/22/23114 STATUS: COMP REQ : [id number] RECD: 05/22/23-[address]: Rodrigo Carrion MD COMP: 06/01/23 ENTERED: 05/22/[address]: Raji Amanda MD ORDERED: Kidney Stone QUERIES: Kidney Stone Source: [id number] Test Result Flag Reference Component 1 SEE NOTE Calcium Oxalate Dihydrate (Weddellite) 15% Calcium Oxalate Monohydrate (Whewellite) 70% Carbonate Apatite (Dahllite) 15% See Note 1 Stone Weight 0.002 g Note 1 This test was developed and its analytical performance characteristics have been determined by [facility]. It has not been cleared or approved by the FDA. This assay has been validated pursuant to the CLIA regulations and is used for clinical purposes. THIS TEST WAS PERFORMED AT: [facility] [address] [id number] AMIRAH HOLLY MD Stone Source LEFT URETERAL STONE Date of Service: 08/02/23 US RETROPERITONEAL LIMITED (RENAL ONLY) CLINICAL INFORMATION: Calculus of kidney. COMPARISON: X-ray KUB 05/30/2023 and 05/08/2023. CT abdomen and pelvis 04/30/2023. Ultrasound abdomen complete 07/10/2022 and 01/10/2022. TECHNIQUE: Real-time imaging of the kidneys. No hydronephrosis. No renal calculi. Limited visualization. FINDINGS: RIGHT KIDNEY: 9.4 x 5.2 x 6.0 cm (SAG x AP x TRV). Multiple renal calculi measuring 4 mm lower pole, 7 mm lateral mid pole, and 4 mm lower pole. No hydronephrosis. Limited visualization. LEFT KIDNEY: 11.8 x 6.3 x 4.7 cm (SAG x AP x TRV). 3 mm lower pole and 3 mm mid pole calculi. Moderate hydronephrosis. Limited visualization. Renal cortical thickness is normal. IMPRESSION: Bilateral renal calculi. Moderate left hydronephrosis. Date of Service: 04/30/23 EXAMINATION: CT ABDOMEN AND PELVIS WITHOUT CONTRAST CLINICAL INFORMATION: Left flank pain. COMPARISON: CT abdomen pelvis dated 01/02/2021. TECHNIQUE: Multidetector volumetric imaging was performed from the superior aspect of the liver through the pubic symphysis. Sagittal and coronal reformatted images were obtained on the technologist's workstation. This CT examination was performed using dose optimization techniques as appropriate, variously including the following: *Automated exposure control *Adjustment of mA and/or kV according to patient size (this includes techniques or standardized protocols for targeted exams where dose is matched to indication/reason for exam; i.e. extremities or head) *Use of iterative reconstruction technique DLP: 864 mGy-cm FINDINGS: LUNG BASES: The lung bases are clear. Heart size is normal. There are coronary artery calcifications. LIVER, GALLBLADDER, AND BILIARY TREE: The liver is normal in size, shape, and attenuation. There are 2 stable low-attenuation lesions within the liver measuring 1.5 and 1.7 cm, respectively. Both likely represent simple cysts. No biliary ductal dilatation is present. There is a 1.8 cm gallstone. There is no gallbladder wall thickening or obvious pericholecystic inflammatory changes. PANCREAS: Unremarkable. SPLEEN: Unremarkable. ADRENAL GLANDS: Unremarkable. KIDNEYS AND URETERS: Right kidney and ureter: The right kidney is normal in size. There are multiple right renal calculi the majority of them are within the lower pole. The largest right renal calculus measures 6 mm. It measures approximately 318 Hounsfield units. There is no right perinephric stranding. No right hydronephrosis. No right ureteral calculus. Left kidney and ureter: The left kidney is normal in size. Left kidney contains multiple renal calculi. The largest is located within the interpolar region and measures 9 mm in length. This calculus measures 305 Hounsfield units. There is mild left hydronephrosis. There is moderate left perinephric stranding. There is an obstructing calculus within the proximal left ureter at the level of the superior endplate of the L3 vertebral body measuring 6 mm in length. The calculus measures 1047 Hounsfield units. There is left periureteric stranding. The distal left the ureter distal to this obstructing calculus is normal in appearance. BLADDER: The urinary bladder is minimally distended. There are no urinary bladder calculi. GASTROINTESTINAL TRACT: The small bowel and colon are normal in caliber. The appendix is not definitively identified, however, there are no inflammatory changes within the expected location of the appendix to suggest an acute inflammatory process. There is sigmoid colon diverticulosis without evidence of acute diverticulitis. ABDOMINAL WALL: No significant hernia is appreciated. LYMPH NODES: No retroperitoneal or pelvic lymphadenopathy. VASCULAR: No abdominal aortic aneurysm. Moderate vascular calcifications. PELVIC VISCERA: Unremarkable. OSSEOUS STRUCTURES: There is degenerative disease of the visualized spine. IMPRESSION: - There is an obstructing calculus within the proximal left ureter at the level of the superior endplate of the L3 vertebral body measuring 6 x 4 mm. The calculus measures 1047 Hounsfield units. There is left sided hydroureteronephrosis. There is left perinephric stranding. - There are bilateral nonobstructive renal calculi as described. - Stable hepatic cysts as described. - Cholelithiasis without evidence of acute cholecystitis. - Diverticulosis without evidence of acute diverticulitis. Assessment & Plan Assessment & Plan (1) Hypercalciuria: Code(s): R82.994 - Hypercalciuria Category: Medical (2) Bilateral kidney stones: Code(s): N20.0 - Calculus of kidney Category: Medical (3) Nephrolithiasis: Comment: Mixed calcium oxalate stones December 20202023 Code(s): N20.0 - Calculus of kidney Category: Medical (4) Erectile dysfunction: Code(s): N52.9 - Male erectile dysfunction, unspecified Category: Medical Qualifiers: Erectile dysfunction type: unspecified Qualified Code(s): N52.9 - Male erectile dysfunction, unspecified Plan - Patient is on allopurinol. - Referred to Nephrology to re-evaluate medication therapy for hypercalciuria and kidney stone production. Cont. Vit B6 100 mg daily. - Monitor nephrolithiasis with annual ultrasound unless symptoms develop. - Continue hydrochlorothiazide for nephrolithiasis management. - Adjust erectile dysfunction treatment: Continue Cialis 5 mg daily and introduce Cialis 20 mg twice weekly, replacing Viagra as needed. - Prescriptions for Cialis and Viagra to be sent to the pharmacy. Patient Instructions: The patient had an opportunity to ask questions regarding treatment plan. The patient expressed understanding and agreement with the above treatment plan. The patient is aware they should contact our office by phone for worsening of their current condition or the appearance of new symptoms. Compliance is encouraged with any medications and followup testing that is ordered. It is a privilege to be allowed the opportunity to participate in the urologic care of your patient. If you have any questions or concerns regarding treatment for the above conditions please do not hesitate to contact me. The office telephone contact is [phone]. This note is constructed in part using voice recognition software. While every effort has been made to ensure accuracy product safety administrator errors may have been included. Yours sincerely, Rodrigo Carrion MD Scribe Plan - Not visible on output: Patient was informed and verbally consented to the use of an ambient scribe for clinic note documentation during this visit. Coding Level of Care Code Est Pt Level 4 (06390) Complex EM visit Add On G2211 Diagnoses Hypercalciuria R82.994 Bilateral kidney stones N20.0 Nephrolithiasis N20.0 Erectile dysfunction, unspecified erectile dysfunction type N52.9 Erectile dysfunction type: unspecified
== END 2024-09-19 16:15 | disposition home or self-care (01) ==
LOC: HO.HUSH 15:51
PROVIDERS: Visit Provider Urology
DX: R82.994 Hypercalciuria (principal); N20.0 Calculus of kidney; N52.9 Male erectile dysfunction, unspecified
CPT/HCPCS: 99214; G2211

== ENCOUNTER → 2024-09-19 15:50 | Outpatient (BNVA) | payer MEDICARE, SELFPAY | PROVIDERS: Visit Provider Urology | DX: R82.994 Hypercalciuria (principal); N20.0 Calculus of kidney; N52.9 Male erectile dysfunction, unspecified | CPT/HCPCS: 99212 ==

== ENCOUNTER → 2024-10-23 07:45 | Outpatient (REF) | payer MEDICARE, SELFPAY ==
--- OUTSIDE RECORDS SUMMARY | 2023-12-04 04:15 | XMS_ITS | Continuity of Care Document ---
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 Name Role Phone Oliver PRINGLE, RVT, JOSE DAVID, Gene Unavailable U navailable Allergies, Adverse Reactions, Alerts Substance Reaction Status Criticality No Known Allergies Active No Inform ation Procedures Procedure Date Office/Outpt E&M Established 10 Mins- CT & [place] Duplex Scan-extrem Veins; Comp- CT & [place] Duplex Scan-extrem Veins; Uni/ CT & [place] A Varithena, Single Truncal Vein - CT & [place] Endovenous Laser, 1st Vein- CT & [place] Ultrason Guidan Needle Bx-rad- CT & [place] A Inj Sclerosing Solution; Sngl- CT & [place] A Duplex Scan-extrem Veins; Uni/ CT & [place] A Endovenous Laser, 1st Vein- CT & [place] Offic/outpt E&m Estab 5 Min Trial- Telem edicine CT & [place] Office/Oupt E&M New Pt 45 Mins- CT & [place] Duplex Scan-extrem Veins; Comp- CT & [place] Advance Directives Directive Yes / No Effective Date File Name Other Directive No N/A N/A WARNING:The information contained in this section is historical and is provided for information only and does not constitute a legal document or any assurance that the information is still accurate. Please verify the information with the metcalf of the legal document before using it for clinical purposes. Encounters Encounter Description Practice Location Reason(s) For Visit Diagnoses Date Provider Providers Copied on Encounter Office/Outpt E&M Established 10 Mins- CT & [place] [facility] MD TREVINO, [address] [place] [address] Dr Blandon 1000[address] 1000Rohan [place], [id number], [place] tel:[phone] [facility] Venous insufficiency (chronic) (peripheral)Lo calized edema Oct-0 4 Oliver PRINGLE RVT, RPVI Robert. [address] [facility], [address], [place], [id number] , [place]. tel:[phone] Referring Provider: Raji Amanda MD, [address] [facility] SUITE [facility], [place], [address]. tel:[phone] Vish H[facility] Sab[facility], [address] [place] [address] Dr Blandon 1000[facility] 1000Rohan [place], [id number], [place] tel:[phone] [facility] Chronic venous hypertension (idiopathic) with other complications of bilateral lower extremity Nov-0 4 Oliver PRINGLE RVT, RPVI Robert. [address] [place] [address], Suite [facility], [place], [id number] , [place]. tel:[phone] Referring Provider: Raji Amanda MD, [address] 2 [facility] SUITE [facility], [place], [address]. tel:[phone] Vish [facility], [address] [place] [address] Dr Blandon 1000Suite 1000Roahn [place], [id number], [place] tel:[phone] [facility] Encounter for follow-up examination after completed treatment for conditions other than malignant neChronic venous hypertension (idiopathic) with other complications of left lower extremity 4 Oliver PRINGLE RVT, JOSE DAVID [place]. [facility], [address], [place], [id number] , [place]. tel:[phone] Referring Provider: Gene Boyd MD, RVT, JOSE DAVID, [address] [place] [address] Suite [facility], [place], [address] . 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 [address] [place] [address], [address], [place], [id number] , [place]. [phone] Vish [facility], [address] [place] [address] [address] 1000Rohan [place], [id number], [place] tel:[phone] [facility] [place] Varicose veins of left lower extremity with other complications 4 Oliver PRINGLE RVT, RPVI Robert. [address] [place] [address], [place] [address], [place], [id number] , [place]. [phone] Referring Provider: Gene Boyd MD, RVT, RPVI, [address] [place] [address] [address], [place], [address] . tel:[phone] [facility]ish [facility], [address] [place] [address] [facility] 1000[address] 1000Rohan [place], [id number], [place] tel:[phone] [facility] [place] Encounter for follow-up examination after completed treatment for conditions other than malignant nePain in right leg 4 Oliver PRINGLE RVT, RPVI Robert. [address] [place] [address], [address], [place], [id number] , [place]. [phone] Referring Provider: Gene Boyd MD, RVT, JOSE DAVID, [address] [place] [address] [address], [place], [address] . tel:[phone] Vihs Hickman Ve[facility]ism [facility], [address] [place] [address] Dr Blandon 1000Suite 1000Rohan [place], [id number], [place] tel:[phone] [facility] [place] No Information 4 Oliver PRINGLE RVT, RPVI Robert. [address] [place] [address], [facility] [place] [place], [id number] , [place]. [phone] [facility], [address] [place] [address] Dr Blandon 999Rohan glover MD, [id number], [place] tel:[phone] [facility] [place] Varicose veins of right lower extremity with other complications 4 Oliver PRINGLE RVT, RPVI Robert. [address] [place] [address], [place], [id number] , [place]. tel:[phone] Offic/outpt E&m Estab 5 Min Trial- Telemedicine CT & [place] [facility], [address] [place] [address] Dr Blandon 1000Rohan glover MD, [id number], [place] tel:[phone] [facility] [place] Chronic venous hypertension (idiopathic) with other complications of bilateral lower extremityCramp and spasmRestless legs syndrome 4 Oliver PRINGLE RVT, RPVI Robert. [address] [place] [address], [place], [id number] , [place]. tel:[phone] Office/Oupt E&M New Pt 45 Mins- CT & [place] [facility], [address] [place] [address] Dr Blandon 1000Rohan glover MD, [id number], [place] tel:[phone] [facility] [place] Varicose veins of bilateral lower extremities with other complicationsR estless legs syndromeCramp and spasmLocalized edema 4 Oliver PRINGLE RVT, RPVI Robert. [address] [place] [address], [place], [id number] , [place]. tel:[phone] [facility], [address] [place] [address] Dr Blandon 1000Rohan glover MD, [id number], [place] tel:[phone] [facility] [place] Varicose veins of bilateral lower extremities with pain 4 Oliver PRINGLE RVT, RPVI Robert. [address] [place] [address], [facility] [place], [id number] , [place]. tel:[phone] Referring Provider: Gene Boyd MD, RVT, RPVI, [address] [facility] [address], [facility] [place], [address] . tel:[phone] Family History Family Member Type Diagnosis Age At Onset No Information Payers Payer name Insurance type Covered constitution party ID Authoriza tion(s) Medicare MEHDI SHRUTHI [id number] BCBS MEHDI [id number] Medical Assistance MEHDI [id number] Social History Type Description Quantity Date Captured Comments Alcohol Use Details Unknown Caffeine Use Details Unknown Tobacco Use Status Never smoked tobacco 2023 Smoking Status Never smoker Non-Smoking Tobacco Use Details : No Details Available : No Details Available Sex Male Chief Complaint And Reason For Visit No Information Reason For Referral Reason For Referral No Information Plan Of Treatment Date Type Action Status Goal Tobacco cessation counseling completed Goal Diet education completed Referral Ordered: Weight management: Referral to physician timeframe: 3 Months (related to Body mass index (BMI) 33.0-33.9, adult) ordered History Of Present Illness Encounter Date Complaint History Of Prese nt Illness No Information Functional Status Date Functional Assessmen t No Information Instructions Date Instruction Additional Infor mation Patient education booklet given Related to Venous Insufficiency (Chronic / Peripheral) Patient education booklet given Related to Chronic venous hypertension (idiopathic) with other complications of bilateral lower extremity Pre and post instruc tions reviewed and provided Related to Chronic venous hypertension (idiopathic) with other complications of bilateral lower extremity Pre and post instruc tions reviewed and provided Related to Varicose veins of bilateral lower extremities with other complications Patient education booklet given Related to Varicose veins of bilateral lower extremities with other complications Lifestyle education Related to B pal mass index (BMI) 33.0-33.9, adult Giving Encouragement to exercise Related to Body mass index (BMI) 33.0-33.9, adult Diet education Related to Body mass index (BMI) 33.0-33.9, adult Assessments Type Assessment Date assessment Venous insufficiency (chronic) ( peripheral) assessment Localized edema Patient Care Teams Name Effective Dates (start - stop) Status Members No Information
--- NOTE | ~2024-10-23 | NM_ITS ---
EXERCISE MYOCARDIAL PERFUSION STUDY INDICATION: Abnormal EKG, coronary artery disease TECHNIQUE: The patient was brought in for an exercise perfusion study on 10/23/2024 . Patient performed exercise as per Noah protocol and was injected 40 mCi of sestamibi once target heart rate was achieved. Images were obtained using the SPECT gamma camera interlaced with the gating device. Images were obtained in supine position. Resting perfusion study was performed on 10/29/2024. Patient was administered 40 mCi of sestamibi intravenously at rest. Images were then obtained in supine position. Total DLP 107 mGy-cm. Images were processed with the software and compared side to side in short axis, horizontal long axis and vertical long axis views. FINDINGS: Raw aquisition reviewed. The stress perfusion study showed decreased tracer uptake along the basal part of inferior wall. There is improvement with CT attenuation correction and hence suggestive of diaphragmatic attenuation artifact. The gated study shows normal LV systolic function with calculated LVEF of 64%. LV cavity is normal in size. The gated study shows diminished contractility in the basal part of inferior wall. Resting study shows no significant perfusion abnormality. Gating at rest reveals diminished contractility in the inferior wall and ejection fraction at 52%. The findings are consistent with fixed basal inferior defect. No clear reversible defects. NM/NM cardiolite stress test IMPRESSION: 1. Myocardial perfusion imaging study shows possible infarct in the basal inferior wall. Cannot exclude artifact. No clear ischemia. 2. Gated LVEF is 64% during stress and 52% during rest. 3. Transient ischemic dilatation not present. EKG component of the test reported separately. Electronically signed by: Anant Rutherford MD 10/30/2024 03:49 PM EDT
--- NOTE | 2024-10-23 07:47 | CA_ITS ---
Acquisition Time: 2024-10-23 08:02:46 Total Exercise Time: 00:05:35 Test Indications: Abnormal ECG TACHYCARDIA Medications: SEE H&P Protocol: ANGLE Max HR: 153 BPM 108% of Pred: 141 BPM Max BP: 170/90 mmHG Max Work Load: 7.0 METS Exercise stress test with exercise 5 mins 35 secs of Angle Protocol, achieving 106% MPHR, with reports of hip pain, no chest pain, with isolated PVCs, frequent PACS with atrial runs - max 6 beats, with normotensive response to exercise. Without any EKG changes meeting criteria for ischemia. In recovery, pt's feeeling back to baseline. Nculear images pending. Test reviewed with Dr. Rutherford. Referred By: Anant Rutehrford Electronically Signed By: Khurram Lancaster
--- OUTSIDE RECORDS SUMMARY | 2024-10-23 07:48 | XMS_ITS | Clinical Summary ---
Author Organization [facility] Address [address] [place] [address] Phone Care Team Providers Care Boilermaker Pipe Fitter Name Role Phone Raji Amanda MD Primary Care Provider [phone] Allergies No known active allergies Medications allopurinoL [...] mouth 1 (one) time each day. Active dextromethorpha n polistirex (DELSYM) 30 mg/5 mL suspension Take 10 mL (60 mg total) by mouth 2 (two) times a day. 5 Active fluticasone propionate (FLONASE) 50 mcg/actuation nasal spray Administer 1 spray into each nostril 2 (two) times a day. 5 Active hydroCHLOROthia zide 12.5 mg tablet Take 1 tablet (12.5 mg total) by mouth 1 (one) time each day. 5 Active loratadine (CLARITIN) 10 mg tablet Take 1 tablet (10 mg total) by mouth 1 (one) time each day. for allergies 5 Active neomycin-polymy mariella-dexamethame thasone (POLYDEX) 3.5 mg/g-10,000 unit/g-0.1 % ointment every 4 (four) hours. 5 Active sildenafiL (VIAGRA) 100 mg tablet Take 1 tablet (100 mg total) by mouth if needed. 5 Active tadalafiL (CIALIS) 5 mg tablet Take 1 tablet (5 mg total) by mouth 1 (one) time each day. 5 Active cyanocobalamin, vitamin B-12, 1,000 mcg/mL drops Take by mouth. Activ e Hospital, Clinic, or Other Facility Administered Medication [...] Chronic viral hepatitis B wi thout delta-agent ([facility] V24, [facility] V28) 09/12/2024 Class 1 obesity 09/12/2024 Gastroesophageal reflux disease with esophagitis 09/12/2024 Hepatic cirrhosis ([facility] V24, [facility] V28) Hyperuricemia 09/12/2024 Low platelet count ([facility] V24) 09/12/2024 Obstructive sleep apnea syndrome 09/12/2024 Osteoarthritis 09/12/2024 Overview (09/12/2024): Left HIp ED (erectile dysfunction) 09/12/2024 Resolved Problems Problem Noted Date Diagnosed Date Resolved Date Norovirus 03/31/2024 03/31/2024 Tachycardia 03/30/2024 03/31/2024 Encounters Date Type Department Care Team Description 10/15/2024 Telephone [facility] [address] [phone] Crow Flores MD 09/16/2024 3:45 PM EDT Office Visit [facility] [address] [phone] Crow Flores MD Wheezing (Primary Dx); Mild asthma, unspecified whether complicated, unspecified whether persistent 09/03/2024 6:49 AM EDT - 09/03/2024 11:59 PM EDT Hospital Encounter [facility] CT Scan [address] [place] [phone] Wheezing Discharge Disposition: Home or Self Care 08/14/2024 3:00 PM EDT Office Visit [facility] [address] [phone] Crow Flores MD Wheezing (Primary Dx); Postinflammatory pulmonary fibrosis ([facility] V24, [facility] V28); Obesity (BMI 30-39.9) from Last 3 Months Social History Tobacco [...] care for your loved ones. For example, school child care attendant or elderly care for an older adult? [...] 09/16/2024 3:58 PM EDT Plan of Treatment Health Maintenance [...] FUNCTION TESTING Routine 08/14/2024 3:13 PM EDT BASIC METABOLIC PANEL Routine 03/31/2024 6:05 AM [...] Signed Date: 09/03/2024 14:12 ET Workstation ID: [id number] Transcribed By: Self Edit Transcribed Date: 09/03/2024 [...] Signed Date: 09/03/2024 14:12 ET Workstation ID: [id number] Transcribed By: Self Edit Transcribed Date: 09/03/2024 14:08 ET Crow Flores MD IMG CT PROCEDURES Final Resu lt * Pulmonary function testing: (08/14/2024 3:13 PM EDT) Historical Provider PFT ORDERABLES Final Res ult * (ABNORMAL) Basic metabolic panel (03/31/2024 6:05 AM EST) Sodium 139 133 - 145 mmol/L LAB CHEMISTRY METHOD 03/31/2024 7:52 AM [facility] Potassium 3.8 3.5 - 5.5 mmol/L LAB CHEMISTRY METHOD 03/31/2024 7:52 AM EST [facility] Chloride 108 96 - 110 mmol/L LAB CHEMISTRY METHOD 03/31/2024 7:52 AM [facility] CO2 27 21 - 32 mmol/L LAB CHEMISTRY METHOD 03/31/2024 7:52 AM [facility] Anion Gap 4 3 - 11 LAB CHEMISTRY METHOD 03/31/2024 7:52 AM [facility] Glucose 93 70 - 100 mg/dL LAB CHEMISTRY METHOD 03/31/2024 7:52 AM [facility] BUN 19 5 - 25 mg/dL LAB CHEMISTRY METHOD 03/31/2024 7:52 AM [facility] Creatinine 0.99 0.70 - 1.30 mg/dL LAB CHEMISTRY METHOD 03/31/2024 7:52 AM [facility] eGFR 77 >=60 mL/min/1. 73m2 LAB CHEMISTRY METHOD 03/31/2024 7:52 AM [facility] Comment:Calculation based on the Chronic Kidney Disease Epidemiology Collaboration (CKD-EPI) equation refit without adjustment for race. BUN/Creatinine Ratio 19.2 LAB CHEMISTRY METHOD 03/31/2024 7:52 AM [facility] Calcium 7.9(L) 8.5 - 10.5 mg/dL LAB CHEMISTRY METHOD 03/31/2024 7:52 AM [facility] Blood Venous blood specimen / Unknown Venipuncture / Unknown 03/31/2024 6:05 AM EST 03/31/2024 7:14 AM EST us Leland Esteban MD LAB BLOOD ORDERABLES Final Res ult [facility] [address] [place] [address], from Last 3 Months or Most Recently Relevant to Health Maintenance Additional Health Concerns Infection Onset Date Last Indicated Norovirus 03/31/2024 03/31/2024 Insurance MEDICARE MEDICAID - [place] [facility] Advance Directives * Full Code - Default [...] currently active code status orders. Care Teams Boilermaker Pipe Fitter Relationship Specialty Start Date End Date Raji Amanda MD [address] [place] [address] PCP - General Internal Medicine 03/30/24
--- OUTSIDE RECORDS SUMMARY | 2024-10-23 07:48 | XMS_ITS | Clinical Summary ---
Author Organization [facility] Address [address] [facility] [address] [place] [address] Phone Care Team Providers Care Dairy Quality Assurance Officer Name Role Phone Pcp, Unknown Primary Care [...] Team Description 09/03/2024 3:00 PM EDT Occupational Health [facility] at [address] [address] Afsaneh Taylor PA-C Encounter for examination required by Department of Transportation (DOT) (Primary Dx) from Last 3 Months Social [...] topic Medical Devices Not on file Insurance [address] [place] [id number] [employer] MEDEX SUPPLEMENT MEDICARE PART A & [facility] [address] [place] [id number] [employer] CROSS MEDEX SUPPLEMENT MEDICARE PART A & B [facility] [place] [address] CROSS MEDEX SUPPLEMENT MEDICARE PART A [facility] [address] MEDEX SUPPLEMENT MEDICARE PART A & B [facility] [address] [place] [id number] [employer] MEDEX SUPPLEMENT MEDICARE PART A & B [facility] [address] [place] [address] [employer] MEDEX SUPPLEMENT MEDICARE PART A & B [facility] Care Teams Dairy Quality Assurance Officer Relationship Specialty Start Date End Date Pcp, Unknown PCP - General 04/04/22 Additional Source Comments The information contained in this document represents components of the legal health record. It is not the complete legal health record.[facility]
== END ==
LOC: HO.CARD 07:45
PROVIDERS: Visit Provider Internal Medicine
DX: R07.2 Precordial pain (principal); I25.10 Atherosclerotic heart disease of native coronary artery without angina pectoris; R94.31 Abnormal electrocardiogram [ECG] [EKG]; R00.0 Tachycardia, unspecified
CPT/HCPCS: 78452; 93017; A9500

== ENCOUNTER → 2024-10-23 07:47 | Outpatient (BNV) | payer MEDICARE, SELFPAY | DX: I49.1 Atrial premature depolarization (principal); I49.3 Ventricular premature depolarization | CPT/HCPCS: 78452; 93016; 93018 ==

== ENCOUNTER → 2024-11-04 14:28 | Outpatient (REF) | payer MEDICARE, SELFPAY ==
--- NOTE | 2024-11-04 14:31 | CA_ITS ---
Transthoracic Echocardiogram Patient (Last, First, Middle): Gene Cordero, Gender: Male Date of : 1945 Age: 78 Procedure Date: 11/04/2024 Procedure Type: Transthoracic Echocardiogram Location: OP Height: 182.88 cm Weight: 117.94 kg BSA: 2.38 m2 Heart Rate: bpm BP: 128 / 80 mmHg Hood Fitter: Referring MD: Anant Rutherford MD Distribution Technician: Doug Mc MD Symptoms: I25.10 - Atherosclerotic heart disease of [place] mart[place] coronary artery without... Study Quality: Adequate ECG Rhythm: Sinus Conclusions: - 1.Normal LV ejection fraction 55-60% with severe left ventricular hypertrophy with impaired relaxation filling pattern 2. Mildly dilated left atrium 3. Mild aortic stenosis 4. Normal RV systolic pressure 5. Mildly dilated ascending aorta 3.7 cm 6. No gross pericardial effusion Findings Left Ventricle Normal left ventricular size and systolic function. There is severely increased left ventricular wall thickness. The visually estimated ejection fraction is between 55-60%. Spectral Doppler is indicative of an impaired relaxation filling pattern. E/E prime ratio is between 8 and 15 consistent with indeterminate filling pressures. Right Ventricle Normal right ventricular cavity size and systolic function. Atria The left atrium is mildly dilated. There is no evidence of interatrial shunt. The right atrium is normal in size. Aortic Valve The aortic valve was not well visualized. There is mild calcification of the aortic valve. There is mild aortic valve stenosis. The peak aortic velocity is 2.26 m/s with a calculated peak gradient of 20 mmHg. The mean gradient is 11 mmHg. The aortic valve area is 1.93 cm2. There is no aortic valve regurgitation. Mitral Valve There is mild anterior and posterior mitral leaflet thickening. There is mild mitral annular calcification. There is trace mitral valve regurgitation. There is no mitral valve stenosis. Pulmonic Valve The pulmonic valve was not well visualized. Tricuspid Valve Likely normal tricuspid valve structure and function. There is trace tricuspid valve regurgitation. The right ventricular systolic pressure is normal. The right ventricular systolic pressure is 21 mmHg. Normal right atrial pressure. There is no evidence of pulmonary hypertension. Great Vessels The pulmonary artery was not well visualized. There is mild dilatation of the ascending aorta measuring 3.70 cm. Small plaque is seen in the sino tubular ridge. Venous The inferior vena cava is normal in size and collapses greater than 50% with inspiration. Pericardium/Pleural Prominent epicardial adipose tissue noted. Prior Study Comparison No prior study available for comparison. Measurements 2D Linear Measurements IVSd: 1.71 0.6-0.9/0.6-1.0 cm LVIDd: 4.28 3.9-5.3/4.2-5.9 cm LVIDd Index: 1.80 2.4-3.2/2.2-3.1 cm/m2 LVIDs: 2.84 2.0-3.6 cm LVPWd: 1.74 0.7-1.1 cm Ao Root: 3.50 2.1-3.5 cm LA Diam: 3.40 2.7-3.8/3.0-4.0 cm LAIDs Index: 1.43 1.5-2.3 cm/m2 LV Mass: 398.83 67-162/88-224 g LV Mass Index: 167.57 43-95/49-115 g/m2 LVOT Diam: 2.20 3.0+(-)1.3 cm 2D Systolic Function EF 4C: 59.00 >55% EF 2C: 63.80 >55% EF BiP: 58.00 >55% Mitral Valve MV Pk E: 0.63 MV PK A: 1.10 MV Decel Time: 185.00 E/A: 0.60 E'Lateral: 7.07 E'Medial: 6.09 E/E' Med: 10.30 E/E' Lat: 8.90 PHT: 54.00 MVA PHT: 4.07 Decel [place]: 3.38 Aortic Valve AoV Pk John Paul: 2.26 AoV Mn John Paul: 1.49 AoV VTI: 0.48 AoV Pk Grad: 20.00 Aov Mn Grad: 11.00 PONCE Cont.VTI: 1.93 LVOT LVOT Pk John Paul: 1.15 LVOT Mn John Paul: 0.77 LVOT VTI: 0.24 LVOT Pk Grad: 5.00 LVOT Mn Grad: 3.00 LVOT Diam: 2.20 LVOT Area: 3.80 Diastolic Function MV Pk E: 0.63 MV Pk A: 1.10 E/A: 0.60 E'Medial: 6.09 E/E' Med: 10.30 E' Laterial: 7.07 E/E' Lat: 8.90 Right Ventricle TAPSE (mm): 28.00 TVS' John Paul: 12.00 Tricuspid Valve TR Pk John Paul: 2.14 TR Pk Grad: 18.00 RA Press: 3.00 RVSP: 21.00 Great Vessels Aorta Ao Root-2D: 3.50 2.0-3.7 cm Ao Asc: 3.70 2.1-3.4 cm Pulmonary Veins Pulm Vein S/D 1.30 Pulmonary Valve PV Pk John Paul: 0.81 Peak PV Grad: 3.00 Updated in Other Vendor System with Status of Final Doug Mc MD electronically signed on 11/05/2024 11:19:31 AM with status of Final
--- OUTSIDE RECORDS SUMMARY | 2024-11-04 17:02 | XMS_ITS | Clinical Summary ---
Author Organization [facility] Address [address] [place] [address] Phone Care Team Providers Care Metal Buildings Assembler Name Role Phone Raji Amanda MD Primary Care Provider [phone] Allergies No known active allergies Medications allopurinoL [...] Chronic viral hepatitis B wi thout delta-agent ([facility] [place]24, [facility] V28) 09/12/2024 Class 1 obesity 09/12/2024 Gastroesophageal reflux disease with esophagitis 09/12/2024 Hepatic cirrhosis ([facility] [place]24, [facility] V28) Hyperuricemia 09/12/2024 Low platelet count ([facility] V24) 09/12/2024 Obstructive sleep apnea syndrome 09/12/2024 Osteoarthritis 09/12/2024 Overview (09/12/2024): Left HIp ED (erectile dysfunction) 09/12/2024 Resolved Problems Problem Noted Date Diagnosed Date Resolved Date Norovirus 03/31/2024 03/31/2024 Tachycardia 03/30/2024 03/31/2024 Encounters Date Type Department Care Team Description 10/15[facility] [address] [phone] Crow Flores MD 09/16/2024 3:45 PM EDT [facility] [address] [phone] Crow Flores MD Wheezing (Primary Dx); Mild asthma, unspecified whether complicated, unspecified whether persistent 09/03/2024 6:49 AM EDT - 09/03/2024 11:59 PM EDT Hospital Encounter [facility] CT Scan [address] [place] [phone] Wheezing Discharge Disposition: Home or Self Care 08/14/2024 3:00 PM EDT [facility] [address] [phone] Crow Flores MD Wheezing (Primary Dx); Postinflammatory pulmonary fibrosis ([facility] V24, [facility] V28); Obesity (BMI 30-39.9) from Last 3 [...] care for your loved ones. For example, children counselor or elderly care for an older [...] Screening 09/18/2023 Medicare Annual Wellness Visit 09/18/2023 Depression Screening 02/27/2024 COVID-19 Vaccine ( season) 2024 06/20/2021, 12/02/2020, 03/11/2020, Additional history exists Influenza [...] Signed Date: 09/03/2024 14:12 ET Workstation ID: [id number] Transcribed By: Self Edit Transcribed Date: 09/03/2024 [...] Signed Date: 09/03/2024 14:12 ET Workstation ID: [id number] Transcribed By: Self Edit Transcribed Date: 09/03/2024 14:08 ET Crow Flores MD IMG CT PROCEDURES Final Resu lt * Pulmonary function testing: (08/14/2024 3:13 PM EDT) Historical Provider PFT ORDERABLES Final Res ult * (ABNORMAL) Basic metabolic panel (03/31/2024 6:05 AM EST) Sodium 139 133 - 145 mmol/L LAB CHEMISTRY METHOD 03/31/2024 7:52 AM [facility] Potassium 3.8 3.5 - 5.5 mmol/L LAB CHEMISTRY METHOD 03/31/2024 7:[address] [facility] Chloride 108 96 - 110 mmol/L LAB CHEMISTRY METHOD 03/31/2024 7:52 AM [facility] CO2 27 21 - 32 mmol/L LAB CHEMISTRY METHOD 03/31/2024 7:52 AM [facility] Anion Gap 4 3 - 11 LAB CHEMISTRY METHOD 03/31/2024 7:52 AM [facility] Glucose 93 70 - 100 mg/dL LAB CHEMISTRY METHOD 03/31/2024 7:52 AM [facility] BUN 19 5 - 25 mg/dL LAB CHEMISTRY METHOD 03/31/2024 7:52 AM [facility] Creatinine 0.99 0.70 - 1.30 mg/dL LAB CHEMISTRY METHOD 03/31/2024 7:52 AM [facility] eGFR 77 >=60 mL/min/1. 73m2 LAB CHEMISTRY METHOD 03/31/2024 7:52 AM [facility] Comment:Calculation based on the Chronic Kidney Disease Epidemiology Collaboration (CKD-EPI) equation refit without adjustment for race. BUN/Creatinine Ratio 19.2 LAB CHEMISTRY METHOD 03/31/2024 7:52 AM [facility] Calcium 7.9(L) 8.5 - 10.5 mg/dL LAB CHEMISTRY METHOD 03/31/2024 7:52 AM [facility] Blood Venous blood specimen / Unknown Venipuncture / Unknown 03/31/2024 6:05 AM EST 03/31/2024 7:14 AM EST us Leland Esteban MD LAB BLOOD ORDERABLES Final Res ult [facility] [address] [place] [address], from Last 3 Months or Most Recently Relevant to Health Maintenance Additional Health Concerns Infection Onset Date Last Indicated Norovirus 03/31/2024 03/31/2024 Insurance MEDICARE [place] - [place] [facility] Advance Directives * Full Code - [...] currently active code status orders. Care Teams Metal Buildings Assembler Relationship Specialty Start Date End Date Raji Amanda MD [address] [place] [address] PCP - General Internal Medicine 03/30/24
--- OUTSIDE RECORDS SUMMARY | 2024-11-04 17:02 | XMS_ITS | Clinical Summary ---
Author Organization [facility] Address [address] [facility] [address] [place] [phone] Phone Care Team Providers Care High School Music Instructor Name Role Phone Pcp, Unknown Primary Care [...] Description 09/03/2024 3:00 PM EDT Occupational Health [facility] at [address] [address] Afsaneh Taylor PA-C Encounter for examination required [...] VACCINE (1 - 1-dose 75+ series) 12/26/2019 INFLUENZA VACCINE (#1) 2024 , 03/19/2023, 11/03/2021, Additional history exists COVID-19 VACCINE (2024- season) 2024 06/20/2021, 12/02/2020, 03/11/2020, Additional history exists Adult [...] Medical Devices Not on file Insurance [address] [place] [id number] [employer] MEDEX SUPPLEMENT MEDICARE PART A & [facility] [employer] MEDEX SUPPLEMENT MEDICARE PART A [facility] [place] [address] [place] [address] MEDEX SUPPLEMENT MEDICARE PART A & [facility] [place] [address] [address] MEDEX SUPPLEMENT MEDICARE PART A & B [facility] [address] [place] [phone] [employer] MEDEX SUPPLEMENT MEDICARE PART A & B [facility] [employer] MEDEX SUPPLEMENT MEDICARE PART A & B [facility] Care Teams High School Music Instructor Relationship Specialty Start Date End Date Pcp, Unknown PCP - General 04/04/22 Additional Source Comments The information contained in this document represents components of the legal health record. It is not the complete legal health record.[facility]
== END ==
LOC: HO.CARD 14:28
PROVIDERS: Visit Provider Internal Medicine
DX: I25.10 Atherosclerotic heart disease of native coronary artery without angina pectoris (principal)
CPT/HCPCS: 93306

== ENCOUNTER → 2024-11-04 14:31 | Outpatient (BNV) | payer MEDICARE, SELFPAY | PROVIDERS: Visit Provider Internal Medicine Cardiovascular Disease | DX: I51.7 Cardiomegaly (principal); I25.10 Atherosclerotic heart disease of native coronary artery without angina pectoris; I35.8 Other nonrheumatic aortic valve disorders | CPT/HCPCS: 93306 ==

== ENCOUNTER 2024-11-05 14:33 | Outpatient (AMB) | payer MEDICARE, SELFPAY ==
--- NOTE | 2024-11-05 14:49 | MHC.OFFVIS ---
Vital Signs 11/05/24 14:50 Height 6 ft Weight 256 lb 6.362 oz BMI 34.8 BP 118/56 L Blood Pressure Location Rt brachial Position Sitting Pulse 85 Pulse Source Pulse Oximeter Intake Visit Reasons: f/up echo/ mibi/ HS Accompanied by: Self / Same As Patient Allergies No Known Allergies Allergy (Verified 11/05/24 14:53) Medication List - Last Reconciled 11/05/24 by Khurram Lancaster NP albuterol sulfate 90 mcg/actuation 2 puffs inhalation Q4-6H PRN allopurinol 100 mg PO .QOD 90 days benzonatate 200 mg PO BID PRN clonazepam 0.5 mg PO BID cyanocobalamin (vitamin B-12) 1,000 mcg PO DAILY fluticasone propionate 50 mcg/actuation 1 spray intranasal BID hydrochlorothiazide 12.5 mg PO DAILY loratadine 10 mg PO DAILY omeprazole 20 mg PO DAILY@0630 tadalafil (Cialis) 20 mg PO DAILY PRN tadalafil (Cialis) 5 mg PO DAILY 30 days HPI Comments Details: This is a 78-year-old male patient coming in for a follow-up visit. Patient was previously referred to our office for cardiovascular evaluation. Patient's chest CT from [facility] had shown moderate coronary artery calcification and mild atherosclerotic calcification of the great vessels. EKG in the office was also showing possible inferior wall infarct. Subsequently patient underwent an echo and a myocardial perfusion study. Today, patient is here to review the results for this and is continuing to deny any cardiac symptoms of exertional chest pain, shortness of breath, palpitations, dizziness, orthopnea, PND, leg edema, presyncope, or syncope. Patient is reporting compliance with all his medications. Patient states that he is taking hydrochlorothiazide for his bilateral kidney stones, started by his comber setter. [facility] Medical History Preop exam for internal medicine Cirrhosis GERD (gastroesophageal reflux disease) Kidney stone Hepatitis B COVID-19 vaccine series completed Sleep apnea BPH (benign prostatic hyperplasia) Obesity Arthritis of left hip Anxiety Hip pain Surgical History History of total left hip arthroplasty History of lithotripsy H/O colonoscopy History of back surgery History of appendectomy History of tonsillectomy Family History Father No problems noted. Mother No problems noted. Daughter No problems noted. Social History Housing: House Are you a primary home care provider to a significant other at home: No Do you presently have visiting nurse or other home services: No Alcohol intake: never Patient Tobacco Use Status: Never used Tobacco Tobacco use type: Cigarette e-Cigarette/Vaping Use: Never Used Second Hand Smoke Exposure: No service: No 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al status: retired 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 Cognitive needs: No Hearing needs: No Vision needs: Yes Review of Systems Const Denies daytime sleepiness, Denies difficulty sleeping, Denies snoring, Denies stops breathing during sleep and Denies weakness Card Denies chest pain, Denies rapid heart rate, Denies irregular heart rhythm, Denies claudication, Denies leg edema, Denies lightheadedness, Denies palpitations, Denies dyspnea, Denies dyspnea on exertion, Denies orthopnea, Denies paroxysmal nocturnal dyspnea and Denies slow heart rate Resp Denies cough, Denies dyspnea, Denies dyspnea on exertion and Denies snoring GI Reports no additional complaints, Denies hematochezia, Denies change in stool character and Denies dyspepsia Musc Denies abnormal gait, Denies muscle weakness and Denies numbness Neuro Denies abnormal gait, Denies numbness and Denies weakness Endo Denies palpitations Physical Exam Vital Signs: Last Vital Signs Pulse 85 11/05/24 14:50 BP 118/56 L 11/05/24 14:50 BMI result Body Mass Index 34.8 Const General: cooperative, healthy appearing, comfortable and no acute distress Orientation/consciousness: patient oriented x3 HEENT Head: Yes normal to inspection Neck Neck: Yes normal visual inspection, Yes trachea midline and Yes supple Chest Chest palpation & inspection: normal inspection of the chest Resp Effort & Inspection: normal respiratory effort Auscultation: clear to auscultation bilaterally, no crackles, no rales, no rhonchi and no wheezes Cardio Jugular venous distension: no JVD Palpation: normal PMI Rate: regular rate Rhythm: regular rhythm Heart sounds: S1 normal heart sound present, S2 normal heart sound present, no click, no gallops, no murmurs and no rubs Peripheral pulses: Peripheral pulses 2+ throughout GI Inspection: Yes normal to inspection Palpation (GI): Soft to palpation Auscultation: normal bowel sounds Skin General skin exam: no rashes or lesions noted Neuro General: patient oriented x3 Extrem General: Yes normal to inspection, No no pedal edema and No calf tenderness Psych Appearance: grossly normal Mental Status: mental status grossly normal Speech and movement: Normal speech and movement present Assessment & Plan Assessment & Plan (1) Abnormal EKG: Code(s): R94.31 - Abnormal electrocardiogram [ECG] [EKG] Category: Medical Plan: 05/21/2024-chest CT at [facility] showed moderate coronary artery calcification and mild atherosclerotic calcifications of the aorta and great vessels. 08/25/2024-EKG had shown underlying sinus rhythm with possible old inferior infarct. 10/23/2024-myocardial perfusion study showed possible infarct in the basal inferior wall with no clear ischemia. Stress portion of the test with moderate workload without any anginal symptoms or EKG changes for ischemia. 11/04/2024-echo study showed a normal LV systolic function with an ejection fraction between 55-60% with severe left ventricular hypertrophy with impaired relaxation filling pattern, mildly dilated left atrium, mild aortic stenosis, and mildly dilated ascending aorta at 3.7 cm. Most recent LDL at 93, not within goal of LDL less than 70. We will start patient on statin therapy and plan to repeat lipid profile with LFTs in 3 months. Looking back at patient's blood pressures, it has fluctuated. Patient blood pressure today is within normal limits. We will have patient monitor his blood pressure at home and bring patient back in for a nurse visit for blood pressure check with a goal less than 130/80. Given his findings on his echo, emphasized the importance of management of his vascular risk factors. Patient is clinically stable and without any cardiac symptoms. In case of patient having any new cardiac symptoms, we will plan to pursue a coronary CTA. Patient understanding of the plan. (2) Coronary artery calcification seen on CT scan: Code(s): I25.10 - Atherosclerotic heart disease of [place] coronary artery without angina pectoris Category: Medical Plan: As above. Advised heart healthy diet, regular exercise, losing weight, med compliance, and management of vascular risk factors. Follow up in 6 months. In the interim, patient will call the office with any concerns or change in symptoms. Advised to seek ER care in case of exertional chest pain not resolved with rest. This note was generated using voice recognition software. While every effort has been made to ensure accuracy and proper electrician locomotive, there may be occasional errors that could affect the content or meaning of the described symptoms. Orders: Orders Lipid Panel 3 Months I25.10 - Atherosclerotic heart disease of [place] coronary artery without angina pectoris Liver Panel 3 Months I25.10 - Atherosclerotic heart disease of [place] coronary artery without angina pectoris Medications: New blood pressure test kit-large As directed 1 ea 0RF I10 - Essential (primary) hypertension atorvastatin (Lipitor) 20 mg PO DAILY 90 tabs 3RF Coding Level of Care Code Est Pt Level 4 (66703) Complex EM visit Add On G2211 Diagnoses Abnormal EKG R94.31 Coronary artery calcification seen on CT scan I25.10 Time Spent (min) 31 Comment Time spent in reviewing the chart, test results, assessment, counseling and documentation.
[2024-11-05 14:50] VITALS: BP 118/56; PULSE 85; BMI 34.8
--- OUTSIDE RECORDS SUMMARY | 2024-11-05 17:48 | XMS_ITS | Clinical Summary ---
Author Organization [facility] Address [address] [place] [address] Phone Care Team Providers Care Chief Telephone Operator Name Role Phone Raji Amanda MD Primary Care Provider [phone] Allergies No known active allergies Medications allopurinoL [...] Chronic viral hepatitis B wi thout delta-agent ([facility] V24, [facility] V28) 09/12/2024 Class 1 obesity 09/12/2024 Gastroesophageal reflux disease with esophagitis 09/12/2024 Hepatic cirrhosis ([facility] V24, [facility] V28) Hyperuricemia 09/12/2024 Low platelet count ([facility] V24) 09/12/2024 Obstructive sleep apnea syndrome 09/12/2024 Osteoarthritis 09/12/2024 Overview (09/12/2024): Left HIp ED (erectile dysfunction) 09/12/2024 Resolved Problems Problem Noted Date Diagnosed Date Resolved Date Norovirus 03/31/2024 03/31/2024 Tachycardia 03/30/2024 03/31/2024 Encounters Date Type Department Care Team Description 10/15/2024 Telephone [facility] [address] [phone] Crow Flores MD 09/16/2024 3:45 PM EDT Office Visit [facility] [address] [phone] Crow Flores MD Wheezing (Primary Dx); Mild asthma, unspecified whether complicated, unspecified whether persistent 09/03/2024 6:49 AM EDT - 09/03/2024 11:59 PM EDT Hospital Encounter [facility] CT Scan [address] [place] [phone] Wheezing Discharge Disposition: Home or Self Care 08/14/2024 3:00 PM EDT Office Visit [facility] [address] [phone] Crow Flores MD Wheezing (Primary Dx); Postinflammatory pulmonary fibrosis ([facility] V24, [facility] V28); Obesity (BMI 30-39.9) from Last 3 [...] your loved ones. For example, child care assistant or elderly care for an older [...] Signed Date: 09/03/2024 14:12 ET Workstation ID: [id number] Transcribed By: Self Edit Transcribed Date: 09/03/2024 [...] Signed Date: 09/03/2024 14:12 ET Workstation ID: [id number] Transcribed By: Self Edit Transcribed Date: 09/03/2024 [...] AM EST [facility] Chloride [phone] - [...] [facility] Comment:Calculation based on the [...] ult [facility] [address] [place] [address], from Last 3 Months or Most Recently Relevant to Health Maintenance Additional Health Concerns Infection Onset Date Last Indicated Norovirus 03/31/2024 03/31/2024 Insurance MEDICARE [place] - [place] [facility] Advance Directives * Full Code [...] currently active code status orders. Care Teams Chief Telephone Operator Relationship Specialty Start Date End Date Raji Amanda MD [address] [place] [address] PCP - General Internal Medicine 03/30/24
--- OUTSIDE RECORDS SUMMARY | 2024-11-05 17:48 | XMS_ITS | Clinical Summary ---
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 Name Role Phone Pcp, Unknown Primary Care [...] Description 09/03/2024 3:00 PM EDT Occupational Health [facility] at [address] [address] Afsaneh Taylor PA-C Encounter for examination required [...] Medical Devices Not on file Insurance [address] [place] [id number] [employer] MEDEX SUPPLEMENT MEDICARE PART A & B [facility] [employer] MEDEX SUPPLEMENT MEDICARE PART A & B [facility] [place] [address] MEDEX SUPPLEMENT MEDICARE PART A & B [facility] [place] [address] MEDEX SUPPLEMENT MEDICARE PART A & B [facility] [employer] [address] [place] [id number] [employer] MEDEX SUPPLEMENT MEDICARE PART A & B [facility] [employer] MEDEX SUPPLEMENT MEDICARE PART A & B [facility] Care Teams Men'S Custom Hair Piece Consultant Relationship Specialty Start Date End Date Pcp, Unknown PCP - General 04/04/22 Additional Source Comments The information contained in this document represents components of the legal health record. It is not the complete legal health record.[facility]
== END 2024-11-05 15:21 | disposition home or self-care (01) ==
DX: R94.31 Abnormal electrocardiogram [ECG] [EKG] (principal); I25.10 Atherosclerotic heart disease of native coronary artery without angina pectoris
CPT/HCPCS: 99214; G2211

== ENCOUNTER → 2024-11-05 14:33 | Outpatient (BNVA) | payer MEDICARE, SELFPAY | DX: I10 Essential (primary) hypertension (principal); R94.31 Abnormal electrocardiogram [ECG] [EKG]; I25.10 Atherosclerotic heart disease of native coronary artery without angina pectoris | CPT/HCPCS: 99212 ==

== ENCOUNTER 2025-01-16 15:19 | Outpatient (REF) | payer MEDICARE, SELFPAY ==
--- OUTSIDE RECORDS SUMMARY | 2025-01-12 17:30 | XMS_ITS | Encounter Summary ---
Author Organization [facility] Address [address] [place] [address] Care Team Providers Care Power Builder Developer Name Role Phone Raji Amanda MD Primary Care Provider [phone] Reason for Visit * Consultation (Routine) - Authorized Specialty Diagnoses / Procedures Referred By Contact Referred To Contact Physical Therapy Diagnoses Other abnormalities of gait and mobility Other symptoms and signs involving the musculoskeletal system Bladimir Baumann FNP [address] [place] [address] Phone: tel:[phone] fax:[phone] 1 [facility] [address] [address] Phone: tel: fax: Referral ID Status Reason Start Date Expiration Date Visits Requested Visits Authorized [id number] Authorized Specialty Services Required 12/15/2025 9 9 Encounter Details Date Type Department Care Team (Latest Contact Info) Description 01/12/2025 5:30 PM EST Evaluation [facility] [address] [phone] Henrry Mayo, PT [address] [place], [place] [phone] Other abnormalities of gait and mobility; Other symptoms and signs involving the musculoskeletal system Social History Tobacco Use Types Packs/Day Years [...] for your loved ones. 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 [...] Date Recorded What is your living situation? Unrecognized valu e 03/31/2024 Interpersonal Safety Answer Date Record ed Physical Abuse Unrecognized value 03/31/2024 Verbal Abuse Unrecognized value 03/31/2024 Sex and Gender Information Value Date Recorded Sex Assigned at Male 03/30/2024 8:43 AM EST Legal Sex Male 1:37 PM EDT Gender Identity Male 03/30/2024 8:43 AM EST Sexual Orientation Straight 03/31/2024 12 :12 AM EST documented as of this encounter Progress Notes * Henrry Mayo PT - 01/12/2025 5:30 PM EST Images from the original note were not included. [facility] - Outpatient PHYSICAL THERAPY EVALUATION Date: 01/12/2025 Visit Number: 1 Patient Name: Gene Cordero : 1945 Age: 79 y.o. Gender: male Diagnosis: ICD-10-CM ICD-9-CM 1. Other abnormalities of gait and mobility R26.89 781.2 Ambulatory referral to Physical Therapy and Athletic Training 2. Other symptoms and signs involving the musculoskeletal system R29.898 729.89 Ambulatory referralto Physical Therapy and Athletic Training Date of Onset/Surgery: 12/15/2024 Hx of current condition: Pt comes in with above Dx. Reports having had THR performed 2 years ago by out of [facility]. (Posterior approach). Since surgery has had pain in lateral L hip, which has affected his ambulation. Pt denies LOB. Pt has discussed Sx with surgeon and options have been bursal removal or potentially PRP injections. 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 Pt has no f/u with Mr Baumann at this time. 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 has no past medical history on file. has no past surgical history on file. has no known allergies. Precautions: Hep B SUBJECTIVE History of Present Illness/Subjective Report: Hx of current condition: Pt comes in with above Dx. Reports having had THR performed 2 years ago by [facility] out [facility]. (Posterior approach). Since surgery has had pain in lateral L hip. Pt also limited in ambulation. Pt has discussed Sx with surgeon and options have been bursal removal or potentially PRP injections. 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 Pt has no f/u with Mr Baumann at this time. Pain: Pain location(s): L hip 2-8/10, worst at end of day of after prolonged WB Home Environment: Significant other in apartment building with stairs. Poor standing/walking capacity aprox 5 min max; UE support for sit to stand. Prior Level of Function: No limitations Current Functional Limitations: Reported by Patient step to stair negotiation; Is the patient at Risk for Falls: No OBJECTIVE General Observations/Posture/Comments: antalgic on R *= Pain Palpation: TTP directly over L greater troch, as well as superior to it LE MMT Right Left Ankle PF (S 1)---SLHR reps 10 10 Ankle DF (L 4-L 5) 5/5 5/5 Knee extension (L 3) 5/5 5/5 Knee flexion (S 2) 5/5 5/5 Hip ER 5/5 5/5 Hip IR 4-/5 4-/5 Hip flexion (L 1-2) 5/5 5/5 Hip abduction 4+/5 4/5 Hip adduction 3-/5 3-/5 Hip extension 4-/5 3+/5 Ability to standard bridge 100% Ability to unilateral bridge 100% 25% Tight quads, hip flexors and hamstrings Special Tests: Positive: Negative: SLR, L quadrant Not performed due to posterior approach THR: THIERRY, FADDIR and hip scouring Treatment: x 20 Bridging 5 sec hold 2 x 10 Clamshells 2 x 10 5 sec Hip add 2 x 10 5 sec hold ASSESSMENT: Rehabilitation Potential: Rehab Potential: Condition Has Potential to Improve Gene Cordero is a 79 y.o. male presenting for outpatient physical therapy evaluation with complaints of . Patients progress may be limited by hx of L hip replacement. Skilled Physical therapy is medically necessary to reach PT goals, improve ROM, strength, function and pain levels Learning Needs: Were Patient Learning needs assessed: Yes Learning Preferences: Explanation, Demonstration, and Printed Materials Barriers to Learning: No Barriers to Learning Patient Education: [x] Discussed, with patient and/or caregiver, the recommended plan of care/goals, the importance oftherapy and appointment compliance in order to achieve goals in a timely manner. GOALS Goals Addressed This Visit's Progress feel better (pt-stated) PT hip LTG x 16 visits from [facility] on 01/12/2025 [x] = goal MET [] = goal NOT MET [] Pt will be able to squat to floor and return using UE , [] Pt will be able to negotiate stairs reciprocally, [] Pt will improve walking/standing capacity to 30 minutes to allow prepping and cooking meal PT hip STG x 8 visits from [facility] on 01/12/2025 [x] = goal MET [] = goal NOT MET [] Pt will report a pain decrease to 2/10, [] Pt will be improve hip abd strength to 4/5, [] Pt will improve hip add strength to 3+/5, [] Pt improve SLS to 20 sec, [] Pt will be able to perform 5 reps on 30 sec chair rise radha PLAN POC Development/Review: Initial Evaluation; Participants: Patient Skilled Therapy Plan Required to improve ROM, strength, function, pain levels and achiever PT/pt goals. Planned Therapy Interventions: Biofeedback, Cold Pack, E-Stim -- Unattended, Group Therapy, Hot Pack, Kinesiotaping, Manual Therapy, Mechanical Traction, Neuromuscular Re-education, Soft Tissue Mobility, TENS, Therapeutic Activity, Therapeutic Exercise, and Ultrasound Skilled PT recommended at a freq of 2 a week for 16 visits, with a re-eval after 4 wks. Recommended Consults: none Equipment Recommended: none; Equipment Provided: none BILLING TOTAL TREATMENT TIME: 60 Minutes Evaluation Medium Complexity Justification ::: A history of present problem with 1 - 2 personal factors and/or co-morbidities that impact the plan of care Documentation completed by Henrry Mayo, PT [address] [address] Dept: [phone] Dept PATIENT NAME: Gene Cordero : 1945 Certification: This is to certify that the above named patient, who is under my care, requires skilled Therapy services as described in the above treatment plan. I further certify that the services outlined in this plan are skilled and medically necessary. I have reviewed this plan for rehabilitation services, and I recommend that these services continue to meet the above stated goals and plan. SIGNATURE: DATE Bladimir Baumann FNP Referring provider [1] Current Outpatient Medications on File Prior to Visit Medication Sig Dispense Refill allopurinoL (ZYLOPRIM) 100 mg tablet Take 1 tablet (100 mg total) by mouth every other day. clonazePAM (KlonoPIN) 0.5 mg tablet Take 1 tablet (0.5 mg total) by mouth 2 (two) times a day if needed for anxiety. cyanocobalamin, vitamin B-12, 1,000 mcg/mL drops Take by mouth. dextromethorphan polistirex (DELSYM) 30 mg/5 mL suspension Take 10 mL (60 mg total) by mouth 2 (two) times a day. entecavir (BARACLUDE) 0.5 mg tablet Take 1 tablet (0.5 mg total) by mouth 1 (one) time each day. fluticasone propionate (FLONASE) 50 mcg/actuation nasal spray Administer 1 spray into each nostril 2 (two) times a day. hydroCHLOROthiazide 12.5 mg tablet Take 1 tablet (12.5 mg total) by mouth 1 (one) time each day. loratadine (CLARITIN) 10 mg tablet Take 1 tablet (10 mg total) by mouth 1 (one) time each day. for allergies dtitipbr-drjoljxwt-qvxwpfjhgrmjviixsx (POLYDEX) 3.5 mg/g-10,000 unit/g-0.1 % ointment every 4 (four) hours. omeprazole (PriLOSEC) [address] capsule Take 1 capsule (20 mg total) by mouth 1 (one) time each day. sildenafiL (VIAGRA) 100 mg tablet Take 1 tablet (100 mg total) by mouth if needed. tadalafiL (CIALIS) 5 mg tablet Take 1 tablet (5 mg total) by mouth 1 (one) time each day. Current Facility-Administered Medications on File Prior to Visit Medication Dose Route Frequency Provider Last Rate Last Admin albuterol 2.5 mg /3 mL (0.083 %) nebulizer solution 2.5 mg 2.5 mg nebulization Once PRN Crow Flores MD ipratropium (ATROVENT) 0.02 % nebulizer solution 0.5 mg 500 mcg nebulization Once PRN Crow Flores MD ipratropium-albuteroL (DUONEB) 0.5-2.5 mg/3 mL nebulizer solution 3 mL 3 mL nebulization q6h Yolette Flores MD methacholine challenge (PROVOCHOLINE) 0 mg/mL inhalation solution 2 mL 2 mL inhalation Once Crow Flores MD methacholine challenge (PROVOCHOLINE) 0 mg/mL inhalation solution 2 mL 2 mL inhalation Once Crow Flores MD methacholine challenge (PROVOCHOLINE) 0.0625 mg/mL inhalation solution 2 mL 2 mL inhalation Once Crow Flores MD methacholine challenge (PROVOCHOLINE) 0.25 mg/mL inhalation solution 2 mL 2 mL inhalation Once Crow Flores MD methacholine challenge (PROVOCHOLINE) 1 mg/mL inhalation solution 2 mL 2 mL inhalation Once Crow Flores MD methacholine challenge (PROVOCHOLINE) 16 mg/mL inhalation solution 2 mL 2 mL inhalation Once Yolette Flores MD methacholine challenge (PROVOCHOLINE) 4 mg/mL inhalation solution 2 mL 2 mL inhalation Once Crow Flores MD documented in this encounter Plan of Treatment Upcoming Encounters Date Type Department Care Team (Late st Contact Info) Description 01/27/2025 6:00 PM EST Treatment [address] [phone] Bryan Lea PTA 01/29/2025 5:00 PM EST Treatment [facility] [address] [phone] Bryan Lea, MUSIC PUBLISHER 02/02/2025 5:30 PM EST Treatment [facility] [address] [phone] Bryan Lea, MUSIC PUBLISHER 02/04/2025 5:00 PM EST Treatment [address] [phone] BipinJeff Cornelia, MUSIC PUBLISHER 02/09/2025 6:00 PM EST Treatment [facility] [address] [phone] Bryan Lea, MUSIC PUBLISHER 02/11/2025 5:30 PM EST Treatment [address] [phone] Henrry Mayo, PT [address] [place] [address] 02/16/2025 6:00 PM EST Treatment [address] [phone] Bryan Lea, MUSIC PUBLISHER 02/23/2025 6:00 PM EST Treatment [address] [phone] Henrry Mayo, PT [address] [place] [address] documented as of this encounter Goals Goal Patient Goal Type Associated Problems Recent Progress Patient-Stated? Author feel better General Yes Henrry Mayo, PT PT hip STG x 8 visits from eval on 01/12/2025 General No Henrry Mayo, PT Note: [x] = goal MET [] = goal NOT MET [] Pt will report a pain decrease to 2/10, [] Pt will be improve hip abd strength to 4/5, [] Pt will improve hip add strength to 3+/5, [] Pt improve SLS to 20 sec, [] Pt will be able to perform 5 reps on 30 sec chair rise radha PT hip LTG x 16 visits from [facility] on 01/12/2025 General Henrry Macedo M, PT Note: [x] = goal MET [] = goal NOT MET [] Pt will be able to squat to floor and return using UE , [] Pt will be able to negotiate stairs reciprocally, [] Pt will improve walking/standing capacity to 30 minutes to allow prepping and cooking meal documented as of this encounter Visit Diagnoses Diagnosis Other abnormalities of gait and mobility Other symptoms and signs involving the musculoskeletal system documented in this encounter Orders Outpatient Referral Count Last Ordered Date Fir st Ordered Date AMB REFERRAL TO [facility] 1 01/12/2025 documented in this encounter Additional Health Concerns Infection Onset Date Last Indicated Resolved Time Norovirus 03/31/2024 03/31/2024 documented as of this encounter Care Teams Power Builder Developer Relationship Specialty Start Date End Date Raji Amanda MD [address] [place] [address] PCP - General Internal Medicine 03/30/24 documented as of this encounter
--- OUTSIDE RECORDS SUMMARY | 2025-01-16 15:25 | XMS_ITS | Continuity of Care Document ---
Author Organization [facility] Clinical Address [address] [place] [address] Care Team Providers Care Environmental Services Tech Name Role Phone DONNA FLOWERS Primary Care Provider [phone] JA CARDIOVASCULAR Medical Certification Specialist [phone] [facility] PULMONARY DEPARTMENT Pulmono logist Assessment No assessment recorded. Plan of Treatment Reminders Order Date Submit Date Provider Last Modified By Organization Details Last Modified Time Details Appointments SURGERY @ [facility] 2024 12:00P Hamilton Velázquez MD Not available Not available Not available POST OP 10 2025 10:00A Hamilton George PA-C Not available Not available Not available POST OP 15 2025 01:30P Hamilton Velázquez MD Not available Not available Not available Lab None recorded . Referral None recorded . Procedures None recorded . Surgeries None recorded . Imaging None recorded . Medication Orders None recorded . Patient TargetsNo targets recorded. Patient InstructionsNo instructions recorded. Reason for Referral None Reported. Problems Name Problem SNOMED Code Status Onset Date Resolution Date Notes Provider Name and Address Organization Details Recorded Time Trochanteri c bursitis of left hip [id number] 03 Active 2024 Wong Velázquez MD [address] [facility], [place], [address], [facility] 5 15:27:38 Problem Notes None recorded. Procedures Surgical History Date Name Laterality Status Provider Name and Address Organization Details Recorded Time 4 Hip Kenalog 1cc Injection, L/R completed Ritchie Miller MD [address], [place], [address], [place] [facility] [place] [facility] 08/21/2023 07:30:14 Imaging Results None recorded. Procedure Notes None recorded. Medical Equipment None Reported. Allergies No known drug allergies Medications Name Sig Start Date Stop Date Status Note LastModified by Organization Details LastModified Time amoxicillin 500 mg capsule 4 pills 1 hour prior to procedure active Not Available Not Available No t Available dextrometho rphan polistirex ER 30 mg/5 mL oral susp ext.release 12hr TAKE 10MLS BY MOUTH EVERY 12 HOURS NEEDED FOR COUGH active Not Available Not Available No t Available atorvastati n 20 mg tablet TAKE 1 TABLET BY MOUTH EVERY DAY active Not Available Not Available No [...] clonazepam 0.5 mg tablet TAKE 1 TABLET BY MOUTH TWICE A DAY active Not Available Not Available [...] completed Not Available Not Available Not Available albuterol sulfate HFA 90 mcg/actuati on aerosol inhaler INHALE 2 PUFFS EVERY 4 TO 6 HOURS NEEDED FOR SHORTNESS OF BREATH OR FOR WHEEZE active Not Available Not Available No t Available ondansetron 4 mg disintegrat ing tablet TAKE 1 TABLET BY MOUTH EVERY 6 HOURS NEEDED FOR NAUSEA AND VOMITING 10/18 completed Not Available Not Available Not Available fluticasone propionate 50 mcg/actuati on nasal spray,suspe nsion USE 1 SPRAY IN EACH NOSTRIL TWICE DAILY FOR CONGESTIO N active Not Available Not Available No t Available doxycycline hyclate 100 mg tablet TAKE 1 TAB BY MOUTH TWICE A DAY FOR 1 WEEK THEN TAPER TO ONCE A DAY FOR 1 WEEK active Not Available Not Available No t Available loratadine 10 mg tablet TAKE 1 TABLET BY MOUTH EVERY DAY FOR ALLERGIES active Not Available Not Available No t Available naproxen 500 mg tablet TAKE 1 TABLET BY MOUTH TWICE A DAY FOR 7 DAYS active Not Available Not Available No t Available amoxicillin 875 mg-potshannoniu m clavulanate 125 mg tablet TAKE 1 TABLET BY MOUTH TWICE A DAY FOR 7 DAYS 12/08 completed Not Available Not Available Not Available oxycodone 5 mg tablet TAKE 1 TABLET BY MOUTH EVERY 6 TO 8 HOURS NEEDED FOR PAIN PARTIAL FILL UPON PATIENT REQUEST. 10/18 completed Not Available Not Available Not Available neomycin 3.5 mg/g-polymy mariella B 10,000 unit/g-dexa meth 0.1 % eye oint AFTER HOT PACK AND MASSAGE APPLY 1/4 INCH STRIP TO AFFECTED AREAD THREE TO FOUR TIMES A DAY 12/08 completed Not Available Not Available Not Available tadalafil 5 mg tablet TAKE 1 TABLET BY MOUTH EVERY DAY active Not Available Not Available No t Available tadalafil 20 mg tablet TAKE 1 TAB 30 MINS PRIOR TO SEXUAL ACTIVITY NEEDED*NO MORE THAN TWICE WEEKLY (LIKE SUN AND * active Not Available Not Available No t Available entecavir 0.5 mg tablet active Not Available Not Available Not Available Vitamin B6 active Not Available Not Av ailable Not Available hydrochloro thiazide 12.5 mg tablet TAKE 1 TABLET BY MOUTH EVERY DAY active Not Available Not Available No t Available Vitals Date Recorded Body height Body mass index (BMI) Body weight Provider Name and Address Organization Details Last Updated DateTime 12/11/2024 182.88 cm 34.6 kg/m2 136454.05 g Erin neal [place] - [place] [facility] 12/11/2024 14:31:42 Social History None recorded. Functional Status None recorded. Mental Status None recorded. Family History Nothing Reported. Medical History Condition Response Hepatitis Y Past Encounters Encounter ID Performer Location Encounter Start Date Encounter Closed Date Diagnosis/Indication Diagnosis SNOMED-CT Code Diagnosis ICD10 Code Diagnosis IMO Codes Diagnosis Note [id number] Wong Velázquez MD [facility] Clinical [address] [place] [address] 12/11/2024 14:21:54 12/27/2024 08:43:08 Trochanteric bursitis of left hip [id number] 29839 M70.62 [id number] Health Concerns Section Related Observation LastModified by Organization Detai ls LastModified Time None Recorded Concern Status LastModified by Organization Details LastModified Time None Recorded Payers Encounter Date Sequence Insurance Name Policy Number Policy Rust Covered Member ID Rust Member ID Guarantor Name 12/11/2024 2 [place] [id number] Gene Cordero [id number] Gene Cordero 12/11/2024 1 [place] [employer] Gene Cordero [id number] Gene Cordero Notes Date Note Type Note Provider Name and Address Organization Details Recorded Time 12/11/2024 text/html CC: Left lateral hip painInterval history: Patient reports ongoing, constant, moderate to severe lateral left hip pain. He is unable to walk or stand for extended periods of time such as going to the grocery store. He also reports difficulty with stairs. Pain localized to the lateral aspect of his hip. He had several trochanteric bursal injections with minimal response. Physical therapy was not helpful. Previously was indicated for surgery which have been postponed. He is now interested in moving forward with surgery.Physical exam:Ambulates with a mildly antalgic gaitPain and inability [...] gluteus medius or minimus tear. He has done physical therapy had several corticosteroid injections with limited response. We again discussed treatment options. 1 option would be to continue with observation and periodic corticosteroid injection. We also discussed trying PRP injection. We discussed the experimental nature and ogg-yi-ljtmiw cost with PRP injection. Third option would be surgery. Proposed procedure: Left hip trochanteric bursectomy, IT band lengthening, possible abductor tendon repair, possible application of bio inductive implant. Nature of the proposed procedure, reasonable expectations, anticipated rehabilitation timeline, and restrictions discussed. Risks, benefits, and alternatives of the procedure reviewed. Risks include bleeding, infection, damage to neurovascular structures, pain after surgery, pain, weakness, inability to return to previous level of activity, medical and anesthesia related complications, and thromboembolic events. If repair is performed would require 6 weeks of protected weightbearing on the left lower extremity. We discussed this is a difficult problem without consensus regarding management and it is certainly possible that he have ongoing symptoms after surgical intervention. Patient had a chance to have all questions answered. He wishes to move forward with surgical intervention. He has a walker. We will start the booking process. Wong Velázquez MD [address] [place] [address] [address], [place], [address], [facility] - [facility] 12/11/2024 15:27:54
--- OUTSIDE RECORDS SUMMARY | 2025-01-16 15:25 | XMS_ITS | Data Portability ---
Author Organization [facility] Jay Leija Melive [facility], [facility] Address [address] [place] [address] Care Team Providers Care Waterway Traffic Checker Name Role Phone DONNA FLOWERS Primary Care Provider JA CARDIOVASCULAR Inseam Trimmer [phone] [facility] PULMONARY DEPARTMENT Pulmono logist Assessment Encounter Date Assessment Date Assessment LastModified [...] surveillance status post left total hip arthroplasty. [email or web address] Not available 08/21/2023 07:30:04 Plan of Treatment Reminders Order Date Submit Date Provider Last Modified By Organization Details Last Modified Time Details Appointments SURGERY @ [facility] 2024 12:00P Hamilton Velázquez MD Not available [...] [address] [place] [address] [facility], [address], [place], [address], 09/10/2023 08:58:16 Medication Orders None recorded . [...] a4ajBk vP9nXo QUaueC m3YtLR FvZlgJ JJ8mAn HZtai3 7f0482 AC0KuY nmAUqT eUC8mr 84%3D INTERFACE [facility] [address], [place], [address], 08/17/2023 14:30:49 08/17/19 24 08/17/2023 XR, hip, unila teral , 2 or 3 view http:/ [email or web address] ?Encry pted=s hAaTro YD8dLq bEUv6g %2BXZw aYqtaq 0bqfl% 2Fg9IQ a4ajBk vP9nXo QUaueC m3YtLR FvZlgJ JJ8mAn HZtai3 8h5325 AC0KuY nmAUqT eUC8mr 84%3D INTERFACE [facility] [address], [place], [address], 08/17/2023 14:30:51 10/27/19 24 10/18/2022 shanon castillo/lucy moura tic resul t No observ ation record ed. [email or web address] Not Available 09/28 10:43:11 Result Notes Documentation Provider Name and Address Organization Details Recorded Time Xr, Hip, Unilateral, 2 Or 3 View : [email or web address]? Encrypted=xkBmFbmQO2nCkdZ Uv6g%4WNXmpLseby1pxbw%2Fg 4MDu1xzMarI2aChUGyciGd2To YOYgGkiFZL8qDmKZpld35s168 3AL0JjBqeDZxNgSS4wq24%3D Not Available [facility] 08/17/2023 14:3 0:50 Xr, Hip, Unilateral, 2 Or 3 View : [email or web address] Encrypted=yfEsLkgEE3xIzlJ Uv6g%5EOEtxTfhri3ysrg%2Fg 7EFg7qvQrqF0iUcAApdtVw8Lc QRWzMpaBWC4cKnGNjld12u683 7WM6WjBotYCpUgPB9vx30%3D Not Available [facility] 08/17/2023 14:3 0:51 Problems Name Problem SNOMED Code Status Onset Date Resolution Date Notes Provider Name and Address Organization Details Recorded Time Trochanteri c bursitis of left hip [id number] 03 Active 2024 Wong Velázquez MD [address], [place], [address], [facility] 5 15:27:38 Problem Notes None recorded. Procedures Surgical History Date Name Laterality Status Provider Name and Address Organization Details Recorded Time 4 Hip Kenalog 1cc Injection, L/R completed Ritchie Milelr MD [address], [place], [address], [facility] 08/21/2023 07:30:14 Imaging Results [...] Not Available No t Available amoxicillin 875 mg-manuel rai clavulanate 125 mg tablet TAKE 1 TABLET [...] Updated DateTime 03/14/2024 182.88 cm 34.6 kg/m2 364272.05 g DONNIE MANNING [facility] 03/14/2024 08:06:08 Date Recorded Body height Provider Name an d Address Organization Details Last Updated DateTime 08/17/2023 180.34 cm OLGA MASTERSON [facility] 08/17/2023 14:22:04 Date Recorded Body height Body mass index (BMI) Body weight Provider Name and Address Organization Details Last Updated DateTime 10/19/2023 180.34 cm 35.4 kg/m2 505515.46 g Anna Lawrence [facility] 10/19/2023 09:24:31 Date Recorded Body height Body mass index (BMI) Body weight Provider Name and Address Organization Details Last Updated DateTime 12/11/2024 182.88 cm 34.6 kg/m2 154305.05 g Erin neal [facility] 12/11/2024 14:31:42 Social History None recorded. Functional Status None recorded. Mental Status None recorded. Family History Nothing Reported. Medical History Condition Response Hepatitis Y Past Encounters Encounter ID Performer Location Encounter Start Date Encounter Closed Date Diagnosis/Indication Diagnosis SNOMED-CT Code Diagnosis ICD10 Code Diagnosis IMO Codes Diagnosis Note [id number] Ritchie Miller MD [facility] 2nd floor [address] [place] [address] 08/17/2023 14:06:06 09/10/2023 08:58:16 History of total replacement of left hip joint [id number] 694543 Z96.642 Trochanter ic bursitis of left hip 8628585195 91137 M70.62 [id number] MD [facility] Cam[facility] 3rd floor [address] [place] [address] 10/19/2023 09:10:03 11/13/2023 10:21:40 Trochanteric bursitis of left hip [id number] 67710 M70.62 [id number] MD OSMAN Camacho [facility] 2nd floor [address] [place] [address] 03/14/2024 07:41:37 03/28/2024 15:51:44 Trochanteric bursitis of left hip 5926919860 47830 M70.62 [id number] Wong Velázquez MD [facility] Clinical [address] [place] [address] 12/11/2024 14:21:54 12/27/2024 08:43:08 Trochanteric bursitis of left hip 8369715964 92461 M70.62 [id number] Health Concerns Section Related Observation LastModified by Organization Detai ls LastModified Time None Recorded Concern Status LastModified by Organization Details LastModified Time None Recorded Advance Directives Directive None Recorded Payers Insurance Date Sequence Insurance Name Policy Number Policy Rust Covered Member ID Rust Member ID Guarantor Name 01/15/2025 2 [place] [id number] Gene Cordero [id number] Gene Cordero 01/15/2025 1 [place] [facility] [employer] Gene Cordero [id number] Gene Cordero Notes Date Note Type [...] injection. We discussed the experimental nature and apt-hg-sgwyig cost with PRP injection. Third option would [...] was provided contact information for our surgical instrument maker and can call if he would like to start the booking process. Wong Velázquez MD [address] [place] [address] [address], [place], [address], [facility] 10/19/2023 13:45:40 03/14/2024 text/html [...] injection. We discussed the experimental nature and qmc-nx-ecowpx cost with PRP injection. Third option would [...] start the booking process. Wong Velázquez MD [address] [place] [address] [address], [place], [address], [facility] 03/14/2024 18:40:13 12/11/2024 text/html CC: Left lateral hip painInterval [...] injection. We discussed the experimental nature and ygf-py-xagvrl cost with PRP injection. Third option would [...] start the booking process. Wong Velázquez MD [address] [place] [address] [address], [place], [address], [facility] 12/11/2024 15:27:54
--- OUTSIDE RECORDS SUMMARY | 2025-01-16 15:25 | XMS_ITS | Clinical Summary ---
Author Organization [facility] Address [address] [place] [address] Phone Care Team Providers Care Strategic Sourcing Specialist Name Role Phone Raji Amanda MD Primary Care Provider [phone] Allergies No known active allergies Medications allopurinoL [...] challenge (PROVOCHOLINE) 0 mg/mL inhalation solution 2 mLIndications:Wheezing ,Mild asthma, unspecified whether complicated, unspecified whether persistent [...] mL nebu Every 6 hours 09/16/2024 Active methacholine challenge (PROVOCHOLINE) 0 mg/mL inhalation solution 2 mLIndications:Shortnes s of breath,Obstructive sleep apnea syndrome,Class 1 obesity 2 mL inhl Once 12/18/2024 Active methacholine challenge (PROVOCHOLINE) 0.0625 mg/mL inhalation solution 2 mLIndications:Shortnes s of breath,Obstructive sleep apnea syndrome,Class 1 obesity 2 mL inhl Once 12/18/2024 12/18/2024 Ended methacholine challenge (PROVOCHOLINE) 0.25 mg/mL inhalation solution 2 mLIndications:Shortnes s of breath,Obstructive sleep apnea syndrome,Class 1 obesity 2 mL inhl Once 12/18/2024 12/18/2024 Ended methacholine challenge (PROVOCHOLINE) 1 mg/mL inhalation solution 2 mLIndications:Shortnes s of breath,Obstructive sleep apnea syndrome,Class 1 obesity 2 mL inhl Once 12/18/2024 12/18/2024 Ended methacholine challenge (PROVOCHOLINE) 4 mg/mL inhalation solution 2 mLIndications:Shortnes s of breath,Obstructive sleep apnea syndrome,Class 1 obesity 2 mL inhl Once 12/18/2024 12/18/2024 Ended methacholine challenge (PROVOCHOLINE) 16 mg/mL inhalation solution 2 mLIndications:Shortnes s of breath,Obstructive sleep apnea syndrome,Class 1 obesity 2 mL inhl Once 12/18/2024 12/18/2024 Ended albuterol 2.5 mg /3 mL (0.083 %) nebulizer solution 2.5 mgIndications:Shortnes s of breath,Obstructive sleep apnea syndrome,Class 1 obesity 2.5 mg nebu Once as needed 12/18/2024 12/18/2024 Ended Active Problems Problem Noted Date Diagnosed Date Benign hypertension 09/12/2024 Benign prostatic hyperplasia 09/12/2024 Calculus of kidney 09/12/2024 Chronic viral hepatitis B wi thout delta-agent ([facility]/HCC V24, [facility]/HCC V28) 09/12/2024 Class 1 obesity 09/12/2024 Gastroesophageal reflux disease with esophagitis 09/12/2024 Hepatic cirrhosis ([facility]/HCC V24, [facility]/HCC V28) Hyperuricemia 09/12/2024 Low platelet count ([facility] V24) 09/12/2024 Obstructive sleep apnea syndrome 09/12/2024 Osteoarthritis 09/12/2024 Overview (09/12/2024): Left HIp ED (erectile dysfunction) 09/12/2024 Resolved Problems Problem Noted Date Diagnosed Date Resolved Date Norovirus 03/31/2024 03/31/2024 Tachycardia 03/30/2024 03/31/2024 Encounters Date Type Department Care Team Description 01/12/2025 5:30 PM EST Evaluation [facility] [address] [phone] Henrry Mayo, PT Other abnormalities of gait and mobility; Other symptoms and signs involving the musculoskeletal system 01/12/2025 Plan of Care Documentation [facility] [address] [phone] 12/18/2024 1:54 PM EDT - 12/18/2024 11:59 PM EDT Hospital Encounter [facility] Pulmonary [address] [place] [phone] Obstructive sleep apnea syndrome (Primary Dx); Shortness of breath; Class 1 obesity; Wheezing Discharge Disposition: Home or Self Care [...] for your loved ones. For example, children's aide or elderly care for an older adult? [...] Info) Description 01/27/2025 6:00 PM EST Treatment [facility] [address] [address] Bryan Lea, ENTERPRISE APPLICATION ARCHITECT 01/29/2025 5:00 PM EST Treatment [address] [address] Bryan Lea, ENTERPRISE APPLICATION ARCHITECT 02/02/2025 5:30 PM EST Treatment [address] [address] rByan Lea, ENTERPRISE APPLICATION ARCHITECT 02/04/2025 5:00 PM EST Treatment [address] [address] Jeff Voss, ENTERPRISE APPLICATION ARCHITECT 02/09/2025 6:00 PM EST Treatment [address] [address] Bryan Lea, ENTERPRISE APPLICATION ARCHITECT 02/11/2025 5:30 PM EST Treatment [address] [address] Henrry Mayo, PT [address] [place] [address] 02/16/2025 6:00 PM EST Treatment [address] [address] Bryan Lea, ENTERPRISE APPLICATION ARCHITECT 02/23/2025 6:00 PM EST Treatment [address] [address] Henrry Mayo, PT [address] [place] [address] Health Maintenance Due Date Last Done Comments Zoster Vaccines (2 of 3) 02/27/2011 01/02/2011 RSV Immunization Adult Patients (1 - 1-dose 75+ series) 12/26/2019 Cholesterol Screening (Lipid Panel) 09/18/2023 Medicare Annual Wellness Visit 09/18/2023 Depression [...] on patient's age to complete this topic Goals Goal Patient Goal Type Associated Problems Recent Progress Patient-Stated? Author feel better General Yes Henrry Mayo, PT PT hip STG x 8 visits from [facility] on 01/12/2025 General No Henrry Mayo, PT [...] PT hip LTG x 16 visits from [facility] on 01/12/2025 General No Henrry Mayo, PT Note: [x] = goal MET [] = goal NOT MET [] Pt will be able to squat to floor and return using UE , [] Pt will be able to negotiate stairs reciprocally, [] Pt will improve walking/standing capacity to 30 minutes to allow prepping and cooking meal Procedures Procedure Name Priority Date/Time Associated Diagnosis Comments HC EVALUATION BRONCHOSPASM PROVOCATION W/ADMINISTERED AGENTS Routine 12/18/2024 3:09 PM EDT Shortness of breath BASIC METABOLIC PANEL Routine 03/31/2024 6:05 AM EST from Last 3 Months or Most Recently Relevant to Health Maintenance Results * Pulmonary function testing: Bronchial Challenge with Methacholine (12/18/2024 3:09 PM EDT) Narrative Crow Flores MD - 12/24/2024 8:26 AM EDT Table formatting from the original result was not included. Images from the original result were not included. [facility]monary Lab [address] [place] [id number] Pulmonary Functions Report Date of service: 12/18/24 Patient Name: Adam Cordero Date of : 1945 Age: 78 y.o. Gender: male Ordering Provider: Crow Flores MD Diagnosis listed on Order: Shortness of breath Reason for Exam: Order Questions Answers Reason for Exam: sob Which PFTs would you like to perform? Bronchial Challenge with Methacholine Methacholine challenge test interpretation. Methacholine challenge test interpretation. Baseline FEV1 was 2.2 4:04 doses of methacholine challenge and incremental dosages with subsequent spirometry did not reveal any reduction in FEV1. Methacholine challenge test is negative which conclusively rule out asthma as a cause of patient's symptoms. Other etiologies needs to be entertained. Clinical correlation however is advised. us Crow Flores MD PFT ORDERABLES Final Result * (ABNORMAL) Basic metabolic panel (03/31/2024 6:05 AM EST) Sodium 139 133 - 145 mmol/L LAB CHEMISTRY METHOD 03/31/2024 7:52 AM [facility] Potassium 3.8 3.5 - 5.5 mmol/L LAB CHEMISTRY METHOD 03/31/2024 7:52 AM [facility] Chloride 108 96 - [...] LAB CHEMISTRY METHOD 03/31/2024 7:52 AM EST [facility] Comment:Calculation based on the Chronic Kidney Disease Epidemiology Collaboration (CKD-EPI) equation refit without adjustment for race. BUN/Creatinine Ratio 19.2 LAB CHEMISTRY METHOD 03/31/2024 7:52 AM EST [facility] Calcium 7.9(L) 8.5 - 10.5 mg/dL LAB CHEMISTRY METHOD 03/31/2024 7:52 AM EST [facility] Blood Venous blood specimen / Unknown Venipuncture / Unknown 03/31/2024 6:05 AM EST 03/31/2024 7:14 AM EST Leland Esteban MD LAB BLOOD ORDERABLES Final Res ult [facility] [address] [place] [address], from Last 3 Months or Most Recently Relevant to Health Maintenance Additional Health Concerns Infection Onset Date Last Indicated Norovirus 03/31/2024 03/31/2024 Insurance MEDICARE MEDICA[place] - [place] [facility] Advance Directives * Full Code - [...] currently active code status orders. Care Teams Strategic Sourcing Specialist Relationship Specialty Start Date End Date Raji Amanda MD [address] [facility] [address] [place] [address] PCP - General Internal Medicine 03/30/24
--- OUTSIDE RECORDS SUMMARY | 2025-01-16 15:25 | XMS_ITS | Encounter Summary ---
Author Organization [facility] [place] [address] Care Team Providers Care Patient Service Associate Name Role Phone Raji Amanda MD Primary Care Provider [phone] Encounter Details Date Type Department Care Team (Latest Contact Info) Description 01/12/2025 Plan of Care Documentation [facility] [address] [facility] [address] [place] [address] Social History Tobacco Use Types Packs/Day Years [...] your loved ones. For example, child and family services worker or elderly care for an older [...] of this encounter Progress Notes * Henrry Mayo, PT - 01/12/2025 6:38 PM EST Images from the original note were not included. [facility] - Outpatient PHYSICAL THERAPY EVALUATION Date: 01/12/2025 [...] Henrry Mayo PT Language: Speaks and understands Guamanian as preferred language with no translator/interpreter required Chart Reviewed: Yes Medications: Medications Ordered [...] Not performed due to posterior approach THR: BETTYE GUADARRAMA and hip scouring Treatment: x 20 Bridging [...] PT hip LTG x [address] [facility] on 01/12/2025 [x] = goal MET [] = goal NOT MET [] Pt will be able to squat to floor and return using UE , [] Pt will be able to negotiate stairs reciprocally, [] Pt will improve walking/standing capacity to 30 minutes to allow prepping and cooking meal PT hip STG x [address] visits [address] [facility] on 01/12/2025 [x] = goal MET [] [...] care Documentation completed by Henrry Mayo, PT [address] [address] Dept: [phone] Dept PATIENT NAME: Gene Cordero : 1945 [...] 1 (one) time each day. for allergies nyfefjcs-tmicqfuop-akneucnorgcvresrqr (POLYDEX) 3.5 mg/g-10,000 unit/g-0.1 % ointment every [...] 2 mL 2 mL inhalation Once Crow Martinezi, MD methacholine challenge (PROVOCHOLINE) 0 mg/mL inhalation solution 2 mL 2 mL inhalation Once Shamim A MD Mark methacholine challenge (PROVOCHOLINE) 0.0625 mg/mL inhalation solution 2 mL 2 mL inhalation Once Shamim A MD Mark methacholine challenge (PROVOCHOLINE) 0.25 mg/mL inhalation solution 2 mL 2 mL inhalation Once Shamim A MD Mark methacholine challenge (PROVOCHOLINE) 1 mg/mL inhalation solution 2 mL 2 mL inhalation Once Shamim A MD Mark methacholine challenge (PROVOCHOLINE) 16 mg/mL inhalation solution 2 mL 2 mL inhalation Once Yolette MD Mark methacholine challenge (PROVOCHOLINE) 4 mg/mL inhalation solution 2 mL 2 mL inhalation Once Crow Flores MD documented in this encounter Plan of Treatment Upcoming Encounters Date Type Department Care Team (Late st Contact Info) Description 01/27/2025 6:00 PM EST Treatment [address] [phone] Bryan Lea, ENGINEER FIRST ASSISTANT 01/29/2025 5:00 PM EST Treatment [address] [phone] Bryan Lea, ENGINEER FIRST ASSISTANT 02/02/2025 5:30 PM EST Treatment [address] [phone] Bryan Lea, ENGINEER FIRST ASSISTANT 02/04/2025 5:00 PM EST Treatment [address] [address] Jeff Voss, ENGINEER FIRST ASSISTANT 02/09/2025 6:00 PM EST Treatment [address] [phone] Bryan Lea, ENGINEER FIRST ASSISTANT 02/11/2025 5:30 PM EST Treatment [address] [phone] Henrry Mayo, PT 175 [place] [address] 02/16/2025 6:00 PM EST Treatment [facility] [address] [address] Bryan Lea, ENGINEER FIRST ASSISTANT 02/23/2025 6:00 PM EST Treatment [facility] [address] [address] Henrry Mayo, PT 175 [place] [address] documented as of this encounter Goals Goal Patient Goal Type Associated Problems Recent Progress Patient-Stated? Author feel better General Yes Henrry Mayo, PT PT hip STG x [address] [facility] on 01/12/2025 General No Henrry Mayo, PT [...] PT hip LTG x [address] [facility] on 01/12/2025 General No Henrry Mayo, PT Note: [x] = goal MET [] = goal NOT MET [] Pt will be able to squat to floor and return using UE , [] Pt will be able to negotiate stairs reciprocally, [] Pt will improve walking/standing capacity to 30 minutes to allow prepping and cooking meal documented as of this encounter Visit Diagnoses Not on filedocumented in this encounter Additional Health Concerns Infection Onset Date Last Indicated Resolved Time Norovirus 03/31/2024 03/31/2024 documented as of this encounter Care Teams Patient Service Associate Relationship Specialty Start Date End Date Raji Amanda MD [address] [place] [address] PCP - General Internal Medicine 03/30/24 documented as of this encounter
--- OUTSIDE RECORDS SUMMARY | 2025-01-16 15:25 | XMS_ITS | Clinical Summary ---
Author Organization [facility] Address [address] [facility] [address] [place] [address] Phone Care Team Providers Care Setter Machine Name Role Phone Pcp, Unknown Primary Care [...] e Active Problems No known active problems Social History Tobacco Use Types Packs/Day Years [...] 1945 POTASSIUM LEVEL 1945 DEPRESSION SCREENING 1956 ZOSTER VACCINES (2 of 3) 02/27/2011 01/02/2011 [...] topic Medical Devices Not on file Insurance [employer] CROSS MEDEX SUPPLEMENT MEDICARE PART A & [facility] [address] [place] [address] [employer] CROSS MEDEX SUPPLEMENT MEDICARE PART A & [facility] [place] [address] MEDEX SUPPLEMENT MEDICARE PART A & B [facility] [employer] MEDEX SUPPLEMENT MEDICARE PART A & B [facility] [address] [place] [id number] [employer] MEDEX SUPPLEMENT MEDICARE PART A & B [facility] [employer] MEDEX SUPPLEMENT MEDICARE PART A & B [facility] [employer] Care Teams Setter Machine Relationship Specialty Start Date End Date Pcp, Unknown PCP - General 04/04/22 Additional Source Comments The information contained in this document represents components of the legal health record. It is not the complete legal health record.[facility]
[2025-01-16 16:38] LABS: Parathyroid Hormone Intact 137.0 pg/mL (8.7-77.1)
[2025-01-16 16:43] LABS: Anion Gap 11 (12-20); Blood Urea Nitrogen 23 mg/dL (9-16); Calcium 9.3 mg/dL (8.4-10.2); Carbon Dioxide 30 mmol/L (22-29); Chloride 106 mmol/L (96-108); Estimated Glomerular Filt Rate > 60; Potassium 4.0 mmol/L (3.3-5.1); Sodium 143 mmol/L (135-145)
== END 2025-01-16 15:20 | disposition home or self-care (01) ==
LOC: HO.LAB 15:19
PROVIDERS: Visit Provider Internal Medicine Nephrology
DX: N20.0 Calculus of kidney (principal); Z13.21 Encounter for screening for nutritional disorder
CPT/HCPCS: 36415; 80051; 82306; 82310; 82565; 83970; 84520

== ENCOUNTER 2025-01-20 10:28 | Outpatient (AMB) | payer MEDICARE, SELFPAY ==
--- NOTE | 2025-01-20 10:48 | HO.NEPHOV_ITS ---
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 Last CT imaging showed bilateral kidney stones. He had left ureteral stent placement with subsequent ESWL and stent removal. He had 24 hour urine collection in the past. His Stone analysis on 04/2023--Calcium Oxalate Dihydrate 15, Calcium Oxalate Monohydrate (Whewellite) 70%, Carbonate Apatite 15%. He has been trying to keep up with increased fluid intake, and low sodium diet. Patient is also on allopurinol.He has no hypertension or DM. Currently he does not have any flank pain, hematuria, supra pubic pain, nausea, vomiting or fever. His serum creatinine is stable and his BP is at goal. [facility] Medical History Preop exam for internal medicine Cirrhosis GERD (gastroesophageal reflux disease) Kidney stone Hepatitis B COVID-19 vaccine series completed Sleep apnea BPH (benign prostatic hyperplasia) Obesity Arthritis of left hip Anxiety Hip pain Surgical History History of total left hip arthroplasty History of lithotripsy H/O colonoscopy History of back surgery History of appendectomy History of tonsillectomy Family History Father No problems noted. Mother No problems noted. Daughter No problems noted. Social History Housing: House Are you a primary geriatric personal care aide to a significant other at home: No Do you presently have visiting nurse or other home services: No Alcohol intake: never Patient Tobacco Use Status: Never used Tobacco Tobacco use type: Cigarette e-Cigarette/Vaping Use: Never Used Second Hand Smoke Exposure: No service: No 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al status: retired 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 Cognitive needs: No Hearing needs: No Vision needs: Yes Review of Systems Const All systems reviewed & are unremarkable except as noted in HPI and below Physical Exam Vital Signs: Last Vital Signs Pulse 64 01/20/25 10:49 BP 116/70 01/20/25 10:49 Pulse Ox 98 01/20/25 10:49 Oxygen Delivery Method Room Air 01/20/25 10:49 BMI result Body Mass Index 36.4 Const General: comfortable and no acute distress Orientation/consciousness: patient oriented x3 HEENT Head: Yes normocephalic Mouth: Normal oral and palatal mucosa present Eyes EOM: EOMs intact bilaterally Neck Neck: Yes supple Resp Auscultation: clear to auscultation bilaterally Cardio Jugular venous distension: no JVD Rate: regular rate GI Palpation (GI): Soft to palpation Auscultation: normal bowel sounds General: Yes no CVA tenderness Back/Spine/Pelvis Back: no CVA tenderness Skin General skin exam: no rashes or lesions noted Neuro General: patient oriented x3 and moves all extremities Extrem General: Yes no pedal edema Results Reviewed Nephrology Results: Sodium, (135-145) 143 mmol/L 01/16/25 Potassium, (3.3-5.1) 4.0 mmol/L 01/16/25 Chloride, (96-108) 106 mmol/L 01/16/25 Carbon Dioxide, (22-29) 30 mmol/L H 01/16/25 BUN, (9-16) 23 mg/dL H 01/16/25 Creatinine, (0.5-1.4) 1.03 mg/dL 01/16/25 Calcium, (8.4-10.2) 9.3 mg/dL 01/16/25 PTH Intact, (8.7-77.1) 137.0 pg/mL H 01/16/25 Renal US 09/05/24 Assessment & Plan Assessment & Plan (1) Hypercalciuria: Code(s): R82.994 - Hypercalciuria Category: Medical (2) Nephrolithiasis: Comment: Mixed calcium oxalate stones December 20202023 Code(s): N20.0 - Calculus of kidney Category: Medical (3) Vitamin D deficiency: Code(s): E55.9 - Vitamin D deficiency, unspecified Category: Medical Plan He has calcium oxalate stones with hypercalciuria. He tries to maintain low sodium diet with adequate fluid intake. His stones are dominantly calcium oxalate. He should continue current dose of HCTZ. I may consider adjusting the dose of HCTZ and add K citrate. He is aware of common side effects of HCTZ. He also should cut down oxalate in the diet. I started him on Vitamin D. I did not make any other medication changes. Recent labs reviewed and follow up labs ordered. Answered all questions. Shall arrange F/U imaging with time. Also should continue to follow up with Urology Orders: Orders Calcium 6 Months E55.9 - Vitamin D deficiency, unspecified, N20.0 - Calculus of kidney, R82.994 - Hypercalciuria Creatinine 6 Months E55.9 - Vitamin D deficiency, unspecified, N20.0 - Calculus of kidney, R82.994 - Hypercalciuria Blood Urea Nitrogen 6 Months E55.9 - Vitamin D deficiency, unspecified, N20.0 - Calculus of kidney, R82.994 - Hypercalciuria Electrolytes 6 Months E55.9 - Vitamin D deficiency, unspecified, N20.0 - Calculus of kidney, R82.994 - Hypercalciuria Vitamin D 25-OH Total 6 Months E55.9 - Vitamin D deficiency, unspecified, N20.0 - Calculus of kidney, R82.994 - Hypercalciuria Medications: New cholecalciferol (vitamin D3) 50 mcg PO DAILY 90 caps 3RF Coding Level of Care Code Est Pt Level 4 (43781) Diagnoses Hypercalciuria R82.994 Nephrolithiasis N20.0 Vitamin D deficiency E55.9
[2025-01-20 10:49] VITALS: BP 116/70; PULSE 64; O2SAT 98; BMI 36.4
--- OUTSIDE RECORDS SUMMARY | 2025-01-20 13:07 | XMS_ITS | Clinical Summary ---
Author Organization 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 ([facility] V24, [facility] V28) 09/12/2024 Class 1 obesity 09/12/2024 Gastroesophageal reflux disease with esophagitis 09/12/2024 Hepatic cirrhosis ([facility] V24, [facility] V28) Hyperuricemia 09/12/2024 Low platelet count ([facility] V[facility]) 09/12/2024 Obstructive sleep apnea syndrome 09/12/2024 Osteoarthritis 09/12/2024 Overview (09/12/2024): Left HIp ED (erectile dysfunction) 09/12/2024 Resolved Problems Problem Noted Date Diagnosed Date Resolved Date Norovirus 03/31/2024 03/31/2024 Tachycardia 03/30/2024 03/31/2024 Encounters Date Type Department Care Team Description 01/12/2025 5:30 PM EST Evaluation [address] [phone] Maria EstherHenrry sierra M, PT Other abnormalities of gait and mobility; Other symptoms and signs involving the musculoskeletal system 01/12/2025 Plan of Care Documentation [facility] [address] [phone] 12/18/2024 1:54 PM EDT - 12/18/2024 11:59 PM EDT Hospital Encounter [facility] [address] [place] [phone] Obstructive sleep apnea syndrome (Primary Dx); Shortness [...] Info) Description 01/27/2025 6:00 PM EST Treatment [address] [phone] Bryan Lea, FLEET ADMINISTRATIVE ASSISTANT 01/29/2025 5:00 PM EST Treatment [address] [phone] Bryan Lea, FLEET ADMINISTRATIVE ASSISTANT 02/02/2025 5:30 PM EST Treatment [facility] [address] [phone] Bryan Lea, FLEET ADMINISTRATIVE ASSISTANT 02/04/2025 5:00 PM EST Treatment [address] [phone] Jeff Voss, FLEET ADMINISTRATIVE ASSISTANT 02/09/2025 6:00 PM EST Treatment [address] [phone] Bryan Lea, FLEET ADMINISTRATIVE ASSISTANT 02/11/2025 5:30 PM EST Treatment [facility] [address] [phone] Henrry Mayo, PT [address] [place] [address] 02/16/2025 6:00 PM EST Treatment [facility] [address] [address] Bryan Lea, FLEET ADMINISTRATIVE ASSISTANT 02/23/2025 6:00 PM EST Treatment [facility] [address] [phone] Henrry Mayo, PT [address] [place] [address] Health Maintenance Due Date Last Done Comments [...] PT hip STG x 8 visits from [facility] on 01/12/2025 General No Henrry Mayo, PT [...] PT hip LTG x 16 visits from [facility] on 01/12/2025 General No Henrry Mayo, PT [...] Methacholine (12/18/2024 3:09 PM EDT) Narrative Crow Folres MD - 12/24/2024 8:26 AM EDT Table formatting from the original result was not included. Images from the original result were not included. [facility] [address] [place] [id number] Pulmonary Functions Report Date of service: 12/18/24 [...] be entertained. Clinical correlation however is advised. Crow Flores MD PFT ORDERABLES Final Result * (ABNORMAL) Basic metabolic panel (03/31/2024 6:05 AM EST) Sodium 139 133 - 145 mmol/L LAB CHEMISTRY METHOD 03/31/2024 7:52 AM EST [facility] Potassium 3.8 3.5 - 5.5 mmol/L LAB CHEMISTRY METHOD 03/31/2024 7:52 AM EST [facility] Chloride 108 96 - 110 [...] [facility] Comment:Calculation based on the Chronic Kidney Disease Epidemiology Collaboration (CKD-EPI) equation refit without adjustment for race. BUN/Creatinine Ratio 19.2 LAB CHEMISTRY METHOD 03/31/2024 7:52 AM [facility] Calcium 7.9(L) 8.5 - 10.5 mg/dL LAB CHEMISTRY METHOD 03/31/2024 7:52 AM [facility] Blood Venous blood specimen / Unknown Venipuncture / Unknown 03/31/2024 6:05 AM EST 03/31/2024 7:14 AM EST us Leland Esteban MD LAB BLOOD ORDERABLES Final Res ult [facility] [address] [place] [address], from Last 3 Months or Most Recently Relevant to Health Maintenance Additional Health Concerns Infection Onset Date Last Indicated Norovirus 03/31/2024 03/31/2024 Insurance MEDICARE [place]ICA[place] - [place] [facility] Advance Directives * Full Code [...] currently active code status orders. Care Teams Cytopathology Technologist Relationship Specialty Start Date End Date Raji Amanda MD [address] [place] [address] [address] [place] [address] PCP - General Internal Medicine 03/30/24
--- OUTSIDE RECORDS SUMMARY | 2025-01-20 13:07 | XMS_ITS | Clinical Summary ---
Author Organization [facility] Address [address] [facility] [address] [place] [phone] Phone Care Team Providers Care Business Intelligence Architect Name Role Phone Pcp, Unknown Primary Care [...] topic Medical Devices Not on file Insurance [employer] SUPPLEMENT [facility] [address] [place] [address] [employer] SUPPLEMENT MED[facility] [place] [address] MEDEX SUPPLEMENT MEDICARE [facility] A [facility] [employer] MEDEX SUPPLEMENT MEDICARE [facility] A [facility] [address] [place] [phone] [employer] MEDEX SUPPLEMENT MEDICARE PART A & [facility] [employer] MEDEX SUPPLEMENT MEDICARE PART A & B [facility] [employer] Care Teams Business Intelligence Architect Relationship Specialty Start Date End Date Pcp, Unknown PCP - General 04/04/22 Additional Source Comments The information contained in this document represents components of the legal health record. It is not the complete legal health record.[facility]
== END 2025-01-20 11:03 | disposition home or self-care (01) ==
LOC: HO.HKAS 10:29
PROVIDERS: Visit Provider Internal Medicine Nephrology
DX: R82.994 Hypercalciuria (principal); N20.0 Calculus of kidney; E55.9 Vitamin D deficiency, unspecified
CPT/HCPCS: 99214

== ENCOUNTER → 2025-01-20 10:28 | Outpatient (BNVA) | payer MEDICARE, SELFPAY | PROVIDERS: Visit Provider Internal Medicine Nephrology | DX: N20.0 Calculus of kidney (principal); R82.994 Hypercalciuria; E55.9 Vitamin D deficiency, unspecified | CPT/HCPCS: 99212 ==